=== PATIENT | male | born 1950 | race Caucasian/White ===

== ENCOUNTER 2016-07-12 15:22 | Emergency (ER) | payer OTHER ==
[2016-07-12 15:30] VITALS: BP 156/73; PULSE 69; RESP 18; TEMP 97.9
--- NOTE | 2016-07-12 15:46 | ED ---
General Adult HPI - General Chief complaint: ENT Stated complaint: left ear ache Time Seen by Provider: 07/12/16 15:34 Source: patient, RN notes reviewed Mode of arrival: wheelchair Limitations: no limitations - History of Present Illness Initial comments: This is a 66-year-old male who presents with left ear pain 1 week. Patient states about one week ago patient was cleaning out his ear with a Q-tip when he felt pain and had bleeding out of his left ear for the rest of that day. Patient states ever since he's had left ear pain but patient denies any hearing loss. Patient denies any drainage or bleeding from the ear now. Patient states he feels like something is moving in his eardrum. Patient states he is on anticoagulants. Patient denies any visual changes, headache, nausea/vomiting /diarrhea, cough, congestion or sore throat. Patient denies any recent fever, chills, shortness breath, chest pain, abdominal pain, nausea/vomiting/diarrhea, back pain, numbness, tingling, hematuria or any other complaints. - Related Data Home Medications Medication Instructions Recorded Confirmed Allopurinol [Zyloprim] 100 mg PO BID 12/02/14 09/30/15 Carvedilol [Coreg] 3.125 mg PO DAILY 12/02/14 09/30/15 Ergocalciferol [Vitamin D2 50,000 unit PO MOFR 12/02/14 09/30/15 (DRISDOL)] Finasteride [Proscar] 5 mg PO DAILY 12/02/14 09/30/15 Insulin Aspart [NovoLOG] 36 units SQ AC-TID 12/02/14 09/30/15 Insulin Glargine [Lantus] 80 unit SQ HS 12/02/14 09/30/15 Levothyroxine Sodium [Synthroid] 50 mcg PO DAILY 12/02/14 09/30/15 Loratadine [Claritin] 10 mg PO DAILY 12/02/14 09/30/15 Methadone [Dolophine] 5 mg PO BID@0800,1400 12/02/14 09/30/15 Methadone [Dolophine] 7.5 mg PO HS 12/02/14 09/30/15 Methocarbamol [Robaxin-750] 1,500 mg PO BID 12/02/14 09/30/15 Multivitamin [Men's Multi-Vitamin] 1 tab PO DAILY 12/02/14 09/30/15 [place]-3 Fatty Acids/Fish Oil [Fish 2 cap PO BID 12/02/14 09/30/15 Oil 1,000 mg Softgel] Pravastatin Sodium [Pravachol] 80 mg PO HS 12/02/14 09/30/15 Pregabalin [Lyrica] 100 mg PO TID 12/02/14 09/30/15 Ranitidine HCl 300 mg PO HS 12/02/14 09/30/15 Sertraline [Zoloft] 200 mg PO DAILY 12/02/14 09/30/15 Tamsulosin [Flomax] 0.8 mg PO HS 12/02/14 09/30/15 Ziprasidone [Geodon] 20 mg PO TID 12/02/14 09/30/15 carBAMazepine [TEGretol] 400 mg PO BID@0900,2100 12/02/14 09/30/15 clonazePAM [KlonoPIN] 0.5 mg PO TID 12/02/14 09/30/15 Baclofen [Lioresal] 10 mg PO BID 09/30/15 09/30/15 Baclofen [Lioresal] 20 mg PO HS 09/30/15 09/30/15 Cyanocobalamin [Vitamin B-12 1,000 mcg SQ QMONTH 09/30/15 09/30/15 Injection] Insulin Aspart [NovoLOG] 0 unit SQ PC-TID 09/30/15 09/30/15 carBAMazepine [TEGretol] 200 mg PO DAILY@1200 09/30/15 09/30/15 metFORMIN HCL 1,000 mg PO BID 09/30/15 09/30/15 Previous Rx's Medication Instructions Recorded Clopidogrel Bisulfate [Plavix] 75 mg PO DAILY #20 tab 10/01/15 Amoxicillin 1,000 mg PO Q8H 10 Days 07/12/16 Allergies Allergy/AdvReac Type Severity Reaction Status Date / Time etodolac [From Lodine] Allergy Unknown Verified 12/25/15 13:15 oxybutynin Allergy Unknown Verified 12/25/15 13:15 Review of Systems ROS Statement: Those systems with pertinent positive or pertinent negative responses have been documented in the HPI. ROS Other: All systems not noted in ROS Statement are negative. Past Medical History Past Medical History: Diabetes Mellitus, GERD/Reflux, Hypertension, Myocardial Infarction ([place]), Thyroid Disorder Additional Past Medical History / Comment(s): severe neuropathy, hx. gout, back problems, rarely uses CPAP, hx. colon polyps, constipation, had DVT/PE related to drug interaction, has balance problems & hx. falling due to feet completely numb, has hydrocele; Gout; BPH Last Myocardial Infarction Date:: 2010 History of Any Multi-Drug Resistant Organisms: None Reported Date of last positivie culture/infection: 2010 MDRO Source:: GI Past Surgical History: Hernia Repair Additional Past Surgical History / Comment(s): hiatal hernia repair x 2, umbilical hernia repair Past Anesthesia/Blood Transfusion Reactions: No Reported Reaction Past Psychological History: Bipolar, Depression, PTSD Additional Psychological History / Comment(s): severe PTSD Smoking Status: Never smoker Past Alcohol Use History: None Reported Past Drug Use History: None Reported - Past Family History Father Family Medical History: Cancer Mother Family Medical History: Cancer General Exam - General Exam Comments Initial Comments: General: The patient is awake and alert, in no distress, and does not appear acutely ill. Eye: Pupils are equal, round and reactive to light, extra-ocular movements are intact. No nystagmus. There is normal conjunctiva bilaterally. No signs of icterus. Ears: Left tympanic membrane is erythematous with dried blood present in the external ear canal. Left tympanic membrane with no sign of perforation. Right tympanic membrane and external ear canals are within normal limits. Nose: Nasal turbinates pink and moist Mouth and throat: There are moist mucous membranes and no oral lesions. Neck: The neck is supple, there is no tenderness or JVD. Cardiovascular: There is a regular rate and rhythm. No murmur, rub or gallop is appreciated. Respiratory: Lungs are clear to auscultation, respirations are non-labored, breath sounds are equal. No wheezes, stridor, rales, or rhonchi. Musculoskeletal: Normal ROM, no tenderness. Strength 5/5. Sensation intact. Radial pulses equal bilaterally 2+. Neurological: A&O x 3. CN II-XII intact, There are no obvious motor or sensory deficits. Coordination appears grossly intact. Speech is normal. Skin: Skin is warm and dry and no rashes or lesions are noted. Psychiatric: Cooperative, appropriate mood & affect, normal judgment. Limitations: no limitations Course Vital Signs 07/12/16 15:28 Temperature 97.9 F Pulse Rate 69 Respiratory 18 Rate Blood Pressure 156/73 O2 Sat by Pulse 96 Oximetry Medical Decision Making - Medical Decision Making This is a 66-year-old male who presents with left ear pain 1 week after patient used a Q-tip to clean his ear. On physical exam left tympanic membrane is erythematous with dried blood present in the external ear canal. Left tympanic membrane with no sign of perforation. Patient is on anticoagulants. I discussed the patient will be put on a course of amoxicillin for otitis media. I discussed Tylenol for pain as patient states he cannot take Motrin. I discussed the patient is to follow up with ENT. I discussed return parameters. Discussed that patient should follow up with PCP in one to 2 days or return to the [facility] for any worsening symptoms or for any further concerns. Patient and were receptive to this plan and patient will be discharged home. I discussed this case with attending physician Dr. Pruitt who agrees the plan as stated above. Disposition Clinical Impression: Otitis media, Trauma of ear canal Disposition: HOME SELF-CARE Condition: Good Instructions: Earache (ED) Additional Instructions: Please finish entire course of antibiotics. Please use Tylenol for pain. Please do not put anything in your ears. Please follow-up with ENT. Please follow-up with family doctor in the next 2 days of symptoms have not improved. Please return to emergency room if the symptoms increase or worsen or for any other concerns. Prescriptions: Amoxicillin 1,000 mg PO Q8H 10 Days Referrals: Arash Gutierrez DO [Primary Care Provider] - 1-2 days Josemanuel Ingram MD [STAFF PHYSICIAN] - 1-2 days Time of Disposition: 16:12
== END 2016-07-12 16:18 | disposition home or self-care (01) ==
LOC: EC 15:22
DX: H66.92 Otitis media, unspecified, left ear (principal); H93.8X2 Other specified disorders of left ear; E11.9 Type 2 diabetes mellitus without complications; K21.9 Gastro-esophageal reflux disease without esophagitis; I10 Essential (primary) hypertension; I25.2 Old myocardial infarction; E07.9 Disorder of thyroid, unspecified; F31.9 Bipolar disorder, unspecified; F43.10 Post-traumatic stress disorder, unspecified; N40.0 Benign prostatic hyperplasia without lower urinary tract symptoms; M10.9 Gout, unspecified; G62.9 Polyneuropathy, unspecified; Z88.8 Allergy status to other drugs, medicaments and biological substances; Z79.4 Long term (current) use of insulin; Z79.01 Long term (current) use of anticoagulants; Z79.84 Long term (current) use of oral hypoglycemic drugs; Z79.02 Long term (current) use of antithrombotics/antiplatelets; Z86.718 Personal history of other venous thrombosis and embolism; Z79.899 Other long term (current) drug therapy; X58.XXXA Exposure to other specified factors, initial encounter
CPT/HCPCS: 99282

== ENCOUNTER 2016-11-25 11:32 | Inpatient (IN) | payer MEDICARE, OTHER ==
[2016-11-25] MEDS ORDERED: SODIUM CHLORIDE 0.9% 1,000 ML IV STA (11:45)
--- NOTE | 2016-11-25 11:48 | ED ---
General Adult HPI - General Stated complaint: Weakness Time Seen by Provider: 11/25/16 11:38 Source: patient, EMS, RN notes reviewed Mode of arrival: EMS Limitations: no limitations - History of Present Illness Initial comments: Patient is a pleasant 66-year-old male presenting to the emergency department with concerns of numbness and weakness. Patient noticed symptoms when he woke this morning at 5:30. Symptoms have been persistent since that time, possibly somewhat better. Patient last known well was 10 PM last night when he went to bed. Patient does have a history of similar symptoms previously associated with TIA. Patient does have some residual left-sided weakness. Patient states this seems slightly worse than normal. Patient has chronic neuropathy. Patient has complaints of weakness of his left arm and left leg, somewhat worse than normal. Patient also feels his face is somewhat numb on the left side which is a new thing for him. - Related Data Home Medications Medication Instructions Recorded Confirmed Allopurinol [Zyloprim] 100 mg PO BID 12/02/14 11/25/16 Ergocalciferol [Vitamin D2 50,000 unit PO MOFR 12/02/14 11/25/16 (DRISDOL)] Finasteride [Proscar] 5 mg PO DAILY 12/02/14 11/25/16 Insulin Aspart [NovoLOG] 32 units SQ AC-TID 12/02/14 11/25/16 Levothyroxine Sodium [Synthroid] 50 mcg PO DAILY 12/02/14 11/25/16 Loratadine [Claritin] 10 mg PO DAILY 12/02/14 11/25/16 Methadone [Dolophine] 5 mg PO BID@0800,1400 12/02/14 11/25/16 Methadone [Dolophine] 7.5 mg PO HS 12/02/14 11/25/16 Multivitamin [Men's Multi-Vitamin] 1 tab PO DAILY 12/02/14 11/25/16 [place]-3 Fatty Acids/Fish Oil [Fish 2 cap PO BID 12/02/14 11/25/16 Oil 1,000 mg Softgel] Pravastatin Sodium [Pravachol] 40 mg PO HS 12/02/14 11/25/16 Pregabalin [Lyrica] 100 mg PO TID 12/02/14 11/25/16 Sertraline [Zoloft] 200 mg PO DAILY 12/02/14 11/25/16 Tamsulosin [Flomax] 0.8 mg PO HS 12/02/14 11/25/16 Ziprasidone [Geodon] 20 mg PO TID 12/02/14 11/25/16 carBAMazepine [TEGretol] 400 mg PO BID@0700,2100 12/02/14 11/25/16 clonazePAM [KlonoPIN] 0.5 mg PO TID 12/02/14 11/25/16 Baclofen [Lioresal] 10 mg PO BID@0700,1500 09/30/15 11/25/16 Baclofen [Lioresal] 20 mg PO HS 09/30/15 11/25/16 Cyanocobalamin [Vitamin B-12 1,000 mcg SQ QMONTH 09/30/15 11/25/16 Injection] Insulin Aspart [NovoLOG] See Protocol SQ PC-TID 09/30/15 11/25/16 carBAMazepine [TEGretol] 200 mg PO DAILY@1200 09/30/15 11/25/16 metFORMIN HCL 1,000 mg PO BID 09/30/15 11/25/16 Artificial Tears Ointment 1 applic BOTH EYES HS 11/25/16 11/25/16 [Lubrifresh Pm Ointment] Artificial Tears-Hypromellose 1 drops BOTH EYES TID PRN 11/25/16 11/25/16 [Artificial Tear Drops] Carvedilol [Coreg] 6.25 mg PO BID 11/25/16 11/25/16 Gemfibrozil [Lopid] 600 mg PO BID 11/25/16 11/25/16 HYDROcodone/APAP 10-325MG [[place] 1 tab PO Q6H PRN 11/25/16 11/25/16 10-325] Insulin Glargine,Hum.rec.anlog 90 unit SQ HS 11/25/16 11/25/16 [Lantus Solostar] Miconazole Nitrate [Lotrimin AF 1 applic TOPICAL BID PRN 11/25/16 11/25/16 Powder] Pantoprazole Sodium [Protonix] 40 mg PO BID 11/25/16 11/25/16 Ranitidine HCl [Zantac] 300 mg PO HS 11/25/16 11/25/16 Sennosides/Docusate Sodium 1 - 2 tab PO BID PRN 11/25/16 11/25/16 [Docusate Sodium-Senna Tablet] Previous Rx's Medication Instructions Recorded Clopidogrel Bisulfate [Plavix] 75 mg PO DAILY #20 tab 10/01/15 Allergies Allergy/AdvReac Type Severity Reaction Status Date / Time etodolac [From Lodine] Allergy Unknown Verified 11/25/16 11:46 oxybutynin Allergy Unknown Verified 11/25/16 11:46 Review of Systems ROS Statement: Those systems with pertinent positive or pertinent negative responses have been documented in the HPI. ROS Other: All systems not noted in ROS Statement are negative. Constitutional: Denies: fever Eyes: Denies: eye pain ENT: Denies: ear pain Respiratory: Denies: cough Cardiovascular: Denies: chest pain Endocrine: Denies: fatigue Gastrointestinal: Denies: abdominal pain Genitourinary: Denies: dysuria Musculoskeletal: Denies: back pain Skin: Denies: rash Neurological: Reports: weakness, paresthesias. Denies: headache, confusion Past Medical History Past Medical History: CVA/TIA, Diabetes Mellitus, GERD/Reflux, Hypertension, Myocardial Infarction ([place]), Thyroid Disorder Additional Past Medical History / Comment(s): severe neuropathy, hx. gout, back problems, rarely uses CPAP, hx. colon polyps, constipation, had DVT/PE related to drug interaction, has balance problems & hx. falling due to feet completely numb, has hydrocele; Gout; BPH Last Myocardial Infarction Date:: 2010 History of Any Multi-Drug Resistant Organisms: None Reported Date of last positivie culture/infection: 2010 MDRO Source:: GI Past Surgical History: Hernia Repair Additional Past Surgical History / Comment(s): hiatal hernia repair x 2, umbilical hernia repair Past Anesthesia/Blood Transfusion Reactions: No Reported Reaction Past Psychological History: Bipolar, Depression, PTSD Smoking Status: Never smoker Past Alcohol Use History: None Reported Past Drug Use History: None Reported - Past Family History Father Family Medical History: Cancer Mother Family Medical History: Cancer General Exam Limitations: no limitations General appearance: alert, in no apparent distress Head exam: Present: atraumatic Eye exam: Present: normal appearance, PERRL, EOMI. Absent: nystagmus ENT exam: Present: normal oropharynx Neck exam: Present: normal inspection Respiratory exam: Present: normal lung sounds bilaterally Cardiovascular Exam: Present: regular rate, normal rhythm GI/Abdominal exam: Present: soft. Absent: tenderness Extremities exam: Present: normal inspection Neurological exam: Present: alert, oriented X3, CN II-XII intact, motor sensory deficit Expanded Speech: Present: fluid speech Cranial nerves: Facial Sensation: Normal Cerebellar function: Finger to Nose: Normal Sensory exam: Upper Extremity Light Touch: Abnormal Left, Abnormal Right ( Patient states chronic), Lower Extremity Light Touch: Abnormal Left Motor strength exam: RUE: 5, LUE: 4, RLE: 5, LLE: 4 Eye Response: (4) open spontaneously Motor Response: (6) obeys commands Verbal Response: (5) oriented Psychiatric exam: Present: normal affect, normal mood Skin exam: Present: normal color Course Vital Signs 11/25/16 11/25/16 11/25/16 11:34 13:28 14:30 Temperature 97.5 F L 99.2 F Pulse Rate 56 L 52 L 54 L Respiratory 18 16 18 Rate Blood Pressure 141/65 146/72 151/68 O2 Sat by Pulse 94 L 97 97 Oximetry EKG Findings - EKG Comments: EKG Findings:: Sinus bradycardia 54. For screening AV block with a OK of 214. QRS 104. QT 438. QTC 415. Left axis. Incomplete right bundle-branch block. No acute ST change. Medical Decision Making - Medical Decision Making Patient reevaluated and resting comfortably in bed. Patient and family updated on results and plan. State patient states he feels unchanged. Patient does have symptoms of probable mild stroke. Case was discussed in detail with Dr. Tenorio, who will admit for Dr. Tee. patient does not meet TPA criteria secondary to onset greater than 12 hours. - Lab Data Result diagrams: 11/25/16 11:50 11/25/16 11:50 Lab Results 11/25/16 11/25/16 11/25/16 Range/Units 11:50 11:50 11:50 WBC 5.8 (3.8-10.6) k/uL RBC 4.35 (4.30-5.90) m/uL Hgb 12.9 L (13.0-17.5) gm/dL Hct 38.4 L (39.0-53.0) % MCV 88.3 (80.0-100.0) fL MCH 29.8 (25.0-35.0) pg MCHC 33.7 (31.0-37.0) g/dL RDW 15.3 (11.5-15.5) % Plt Count 121 L (150-450) k/uL Neutrophils % 72 % Lymphocytes % 20 % Monocytes % 5 % Eosinophils % 1 % Basophils % 0 % Neutrophils # 4.2 (1.3-7.7) k/uL Lymphocytes # 1.2 (1.0-4.8) k/uL Monocytes # 0.3 (0-1.0) k/uL Eosinophils # 0.1 (0-0.7) k/uL Basophils # 0.0 (0-0.2) k/uL PT (9.0-12.0) sec INR (<1.2) APTT (22.0-30.0) sec Sodium 143 (137-145) mmol/L Potassium 5.1 (3.5-5.1) mmol/L Chloride 103 (98-107) mmol/L Carbon Dioxide 25 (22-30) mmol/L Anion Gap 15 mmol/L BUN 24 H (9-20) mg/dL Creatinine 1.08 (0.66-1.25) mg/dL Est GFR (MDRD) Af Amer >60 (>60 ml/min/1.73 sqM) Est GFR (MDRD) Non-Af >60 (>60 ml/min/1.73 sqM) Glucose 212 H (74-99) mg/dL POC Glucose (mg/dL) (75-99) mg/dL POC Glu Butadiene Convertor Operator ID Calcium 9.5 (8.4-10.2) mg/dL Total Bilirubin 0.5 (0.2-1.3) mg/dL AST 55 (17-59) U/L ALT 50 (21-72) U/L Alkaline Phosphatase 68 (38-126) U/L Total Creatine Kinase 200 H (55-170) U/L CK-MB (CK-2) 4.8 H* (0.0-2.4) ng/mL CK-MB (CK-2) Rel Index 2.4 Troponin I <0.012 (0.000-0.034) ng/mL Total Protein 7.5 (6.3-8.2) g/dL Albumin 4.5 (3.5-5.0) g/dL 11/25/16 11/25/16 11/25/16 Range/Units 11:50 12:25 14:21 WBC (3.8-10.6) k/uL RBC (4.30-5.90) m/uL Hgb (13.0-17.5) gm/dL Hct (39.0-53.0) % MCV (80.0-100.0) fL MCH (25.0-35.0) pg MCHC (31.0-37.0) g/dL RDW (11.5-15.5) % Plt Count (150-450) k/uL Neutrophils % % Lymphocytes % % Monocytes % % Eosinophils % % Basophils % % Neutrophils # (1.3-7.7) k/uL Lymphocytes # (1.0-4.8) k/uL Monocytes # (0-1.0) k/uL Eosinophils # (0-0.7) k/uL Basophils # (0-0.2) k/uL PT 10.9 (9.0-12.0) sec INR 1.1 (<1.2) APTT 25.5 (22.0-30.0) sec Sodium (137-145) mmol/L Potassium (3.5-5.1) mmol/L Chloride (98-107) mmol/L Carbon Dioxide (22-30) mmol/L Anion Gap mmol/L BUN (9-20) mg/dL Creatinine (0.66-1.25) mg/dL Est GFR (MDRD) Af Amer (>60 ml/min/1.73 sqM) Est GFR (MDRD) Non-Af (>60 ml/min/1.73 sqM) Glucose (74-99) mg/dL POC Glucose (mg/dL) 204 H 172 H (75-99) mg/dL POC Glu Butadiene Convertor Operator Edgar Garcia Daniel Calcium (8.4-10.2) mg/dL Total Bilirubin (0.2-1.3) mg/dL AST (17-59) U/L ALT (21-72) U/L Alkaline Phosphatase (38-126) U/L Total Creatine Kinase (55-170) U/L CK-MB (CK-2) (0.0-2.4) ng/mL CK-MB (CK-2) Rel Index Troponin I (0.000-0.034) ng/mL Total Protein (6.3-8.2) g/dL Albumin (3.5-5.0) g/dL - Radiology Data Radiology results: report reviewed (Computed tomography scan of the brain shows no acute process. Atrophy and mild white matter changes.), image reviewed (Two- view chest x-ray shows no acute process.) Disposition Clinical Impression: CVA (cerebral vascular accident) Disposition: ADMITTED IP TO THIS [facility] Referrals: Arash Gutierrez DO [Primary Care Provider] - 1-2 days Decision Time: 15:19
[2016-11-25 12:08] LABS: Basophils % (A) 0 %; CHCM 35.3; Eosinophils # (A) 0.1 k/uL (0-0.7); Eosinophils % (A) 1 %; HCT 38.4 % (39.0-53.0); HDW 2.87; HGB 12.9 gm/dL (13.0-17.5); Luc % (Auto) 2; Lymphocytes # (A) 1.2 k/uL (1.0-4.8); Lymphocytes % (A) 20 %; MCH 29.8 pg (25.0-35.0); MCHC 33.7 g/dL (31.0-37.0); MCV 88.3 fL (80.0-100.0); Monocytes # (A) 0.3 k/uL (0-1.0); Monocytes % (A) 5 %; Neutrophils # (A) 4.2 k/uL (1.3-7.7); Neutrophils % (A) 72 %; RBC 4.35 m/uL (4.30-5.90); RDW 15.3 % (11.5-15.5); WBC 5.8 k/uL (3.8-10.6); WBC (Perox) 5.71
[2016-11-25 12:19] LABS: ALT 50 U/L (21-72); AST 55 U/L (17-59); Alkaline Phosphatase 68 U/L (38-126); Anion Gap 15 mmol/L; Blood Urea Nitrogen 24 mg/dL (9-20); Calcium 9.5 mg/dL (8.4-10.2); Carbon Dioxide 25 mmol/L (22-30); Chloride 103 mmol/L (98-107); Glucose 212 mg/dL (74-99); Non-African American GFR(MDRD) >60 (>60 ml/min/1.73 sqM); Potassium 5.1 mmol/L (3.5-5.1); Sodium 143 mmol/L (137-145); Total Bilirubin 0.5 mg/dL (0.2-1.3); Total Protein 7.5 g/dL (6.3-8.2)
[2016-11-25 12:27] LABS: Glucose,Whole Blood 204 mg/dL (75-99)
[2016-11-25 12:28] LABS: Creatine Kinase 200 U/L (55-170)
[2016-11-25 12:29] LABS: INR 1.1 (<1.2); Partial Thromboplastin Time 25.5 sec (22.0-30.0); Prothrombin Time 10.9 sec (9.0-12.0)
--- NOTE | 2016-11-25 12:38 | CT ---
EXAMINATION TYPE: CT brain wo con DATE OF EXAM: 11/25/2016 COMPARISON: 09/29/2015 HISTORY: Patient complains of left side weakness and numbness. CT DLP: 1121 mGycm. Automated Exposure Control for Dose Reduction was Utilized. TECHNIQUE: CT scan of the head is performed without contrast. FINDINGS: There is no acute intracranial hemorrhage, mass effect, or midline shift identified. Ther e is proportional sulcal and ventricular prominence consistent with age-related atrophy. Minimal low attenuation within the periventricular white matter is similar to the prior exam and again consisten t with microangiopathy. The globes are intact and the visualized sinuses are clear other than minimal ethmoidal mucosal thickening. IMPRESSION: 1. No acute intracranial hemorrhage, mass effect, or midline shift is seen. 2. Unchanged age-related atrophy and mild white matter changes, most likely sequela of microangiopath y.
[2016-11-25 12:41] LABS: Troponin I <0.012 ng/mL (0.000-0.034)
--- NOTE | 2016-11-25 12:53 | XR ---
EXAMINATION TYPE: XR chest 2V DATE OF EXAM: 11/25/2016 COMPARISON: Prior chest x-ray 09/29/2015 HISTORY: Altered mental status, weakness TECHNIQUE: Frontal and lateral views of the chest are obtained. FINDINGS: There is no focal air space opacity, pleural effusion, or pneumothorax seen. The cardiac silhouette size is stable accounting for differences in technique. There are overlying cardiac lead s. Patient is rotated and lung volumes are low.. The osseous structures are intact. IMPRESSION: Heart size may be accentuated by rotation. Expiratory rotated exam, follow-up as indicat ed.
[2016-11-25 12:58] LABS: Creatine Kinase MB 4.8 ng/mL (0.0-2.4)
[2016-11-25 14:26] LABS: Glucose,Whole Blood 172 mg/dL (75-99)
[2016-11-25] MEDS ORDERED: ASPIRIN 325 MG TAB PO STA (15:19)
[2016-11-25] MEDS ORDERED: METHADONE 5 MG TAB PO ONE (15:30)
--- NOTE | 2016-11-25 16:48 | ECHOF ---
Referral Reason:Thrombus MEASUREMENTS -------- HEIGHT: 152.4 cm WEIGHT: 122.9 kg BP: 135/63 RVIDd: 3.8 cm (< 3.3) IVSd: 1.4 cm (0.6 - 1.1) LVIDd: 4.7 cm (3.9 - 5.3) LVPWd: 1.3 cm (0.6 - 1.1) IVSs: 1.8 cm LVIDs: 4.2 cm LVPWs: 1.4 cm LA Diam: 3.9 cm (2.7 - 3.8) Ao Diam: 3.4 cm (2.0 - 3.7) AV Cusp: 1.4 cm (1.5 - 2.6) LA Diam: 4.5 cm (2.7 - 3.8) MV EXCURSION: 13.275 mm (> 18.000) MV EF SLOPE: 69 mm/s (70 - 150) EPSS: 0.5 cm MV E Patricio: 0.68 m/s MV DecT: 323 ms MV A Patricio: 0.84 m/s MV E/A Ratio: 0.81 AV maxP.02 mmHg AV meanP.17 mmHg RAP: 5.00 mmHg RVSP: 15.28 mmHg FINDINGS -------- Sinus rhythm. Morbid Obesity This was a techncally difficult study with suboptimal views, , Definity utilized for enhancement of images. There is moderate concentric left ventricular hypertrophy. Overall left ventricular systolic function is low-normal with, an EF between 50 - 55 %. The right ventricle is normal in size. The left atrium is mildly dilated. The right atrial size is normal. 1.5MG OF DEFINITY UTLIZED: 2 OR MORE WALL SEGMENTS NOT VISUALIZED. There is mild aortic stenosis present. Peak/mean gradient across the Aortic Valve is 22.02mmHg / 13.17mmHg. Mild mitral annular calcification present. Mild mitral regurgitation is present. Mild tricuspid regurgitation present. There is no evidence of pulmonary hypertension. The right ventricular systolic pressure, as measured by Doppler, is 15.28mmHg. There is no pulmonic regurgitation present. The aortic root size is normal. Echo free space may represent effusion or a pericardial fat pad. CONCLUSIONS -------- 1. Morbid Obesity 2. Mild tricuspid regurgitation present. 3. There is no evidence of pulmonary hypertension. 4. The right ventricular systolic pressure, as measured by Doppler, is 15.28mmHg. 5. There is no pulmonic regurgitation present. 6. Echo free space may represent effusion or a pericardial fat pad. 7. This was a techncally difficult study with suboptimal views, , Definity utilized for enhancement of images. 8. There is moderate concentric left ventricular hypertrophy. 9. Overall left ventricular systolic function is low-normal with, an EF between 50 - 55 %. 10. The left atrium is mildly dilated. 11. 1.5MG OF DEFINITY UTLIZED: 2 OR MORE WALL SEGMENTS NOT VISUALIZED. 12. There is mild aortic stenosis present. 13. Mild mitral annular calcification present. 14. Mild mitral regurgitation is present. PUFF IRONER: Josselyn Sahni RDCS
[2016-11-25] MEDS: SODIUM CHLORIDE 0.9% 1,000 ML IV SCH (16:53)
[2016-11-25 16:55] LABS: Glucose,Whole Blood 217 mg/dL (75-99)
[2016-11-25] MEDS: ZIPRASIDONE 20 MG CAP PO SCH ×2 (17:47→21:24)
[2016-11-25] MEDS: CARVEDILOL 6.25 MG TAB PO SCH (17:47)
[2016-11-25] MEDS: PREGABALIN 100 MG CAP PO SCH ×2 (17:47→21:31)
[2016-11-25] MEDS: PANTOPRAZOLE 40 MG TABLET PO SCH (17:47)
[2016-11-25] MEDS: INSULIN LISPRO (humaLOG) 300 UNIT/3 ML VIAL SQ SCH (17:54)
[2016-11-25 21:01] LABS: Glucose,Whole Blood 142 mg/dL (75-99)
[2016-11-25] MEDS: TAMSULOSIN 0.4 MG CAP.ER.24H PO SCH (21:22)
[2016-11-25] MEDS: PRAVASTATIN SODIUM 40 MG TAB PO SCH (21:23)
[2016-11-25] MEDS: FAMOTIDINE 20 MG TAB PO SCH (21:23)
[2016-11-25] MEDS: metFORMIN 500 MG TAB PO SCH (21:23)
[2016-11-25] MEDS: carBAMazepine 200 MG TAB PO SCH (21:24)
[2016-11-25] MEDS: METHADONE 5 MG TAB PO SCH (21:31)
--- NOTE | 2016-11-25 21:50 | US ---
EXAMINATION TYPE: US carotid duplex BILAT DATE OF EXAM: 11/25/2016 COMPARISON: NONE CLINICAL HISTORY: Stenosis. Weakness left side EXAM MEASUREMENTS: RIGHT: Peak Systolic Velocity (PSV) cm/sec ----- Right CCA: 78.1 ----- Right ICA: 137.1 ----- Right ECA: 99.5 ICA/CCA ratio: 1.8 RIGHT: End Diastole cm/sec ----- Right CCA: 15.5 ----- Right ICA: 32.1 ----- Right ECA: 6.3 LEFT: Peak Systolic Velocity (PSV) cm/sec ----- Left CCA: 77.5 ----- Left ICA: 95.6 ----- Left ECA: 108.6 ICA/CCA ratio: 1.2 LEFT: End Diastole cm/sec ----- Left CCA: 16.7 ----- Left ICA: 21.9 ----- Left ECA: 8.9 VERTEBRALS (direction of flow): Right Vertebral: Antegrade Left Vertebral: Antegrade Mild plaque bilateral bifurcations. Tortuous distal right ICA. No evidence of significant stenosis. IMPRESSION: No evidence of hemodynamically significant stenosis within either carotid system. Mild g ray scale plaquing at the bilateral carotid bulbs.
[2016-11-26 06:05] LABS: Glucose,Whole Blood 179 mg/dL (75-99)
[2016-11-26] MEDS: CARVEDILOL 6.25 MG TAB PO SCH ×2 (06:47→17:27)
[2016-11-26] MEDS: carBAMazepine 200 MG TAB PO SCH ×3 (06:47→21:55)
[2016-11-26] MEDS: SODIUM CHLORIDE 0.9% 1,000 ML IV SCH ×3 (06:48→21:21)
[2016-11-26 06:56] LABS: Carbamazepine (Tegretol) 8.6 ug/mL
[2016-11-26] MEDS: INSULIN LISPRO (humaLOG) 300 UNIT/3 ML VIAL SQ SCH ×3 (07:07→17:27)
[2016-11-26] MEDS: PANTOPRAZOLE 40 MG TABLET PO SCH ×2 (07:07→17:28)
[2016-11-26] MEDS: PREGABALIN 100 MG CAP PO SCH ×3 (08:06→21:21)
[2016-11-26] MEDS: metFORMIN 500 MG TAB PO SCH ×2 (08:06→20:13)
[2016-11-26] MEDS: ASPIRIN 325 MG TAB PO SCH (08:07)
[2016-11-26] MEDS: CLOPIDOGREL 75 MG TAB PO SCH (08:07)
[2016-11-26] MEDS: SERTRALINE 100 MG TAB PO SCH (08:07)
[2016-11-26] MEDS: ZIPRASIDONE 20 MG CAP PO SCH ×3 (08:07→21:21)
--- NOTE | 2016-11-26 10:36 | CONS ---
DATE OF CONSULTATION: 11/25/16 CHIEF COMPLAINT: Stroke. HISTORY OF PRESENT ILLNESS: Mr. Díaz is a pleasant 66-year-old male who is being evaluated today on 11/25/16 by the neurology service per the request of Dr. Tenorio for a stroke. The patient was brought into [facility] Emergency room with a complaint of left sided weakness. He states that the symptoms started yesterday and when the symptoms did not improve, he decided to come into the emergency room. He states that he has a history of a stroke which left him with mild left sided weakness but he noticed that the weakness was slightly worse. He is already on Plavix and aspirin at home. A CT scan of the brain was done which showed no acute findings. There was generalized atrophy and small vessel ischemic changes. A 2D echocardiogram was done which showed no significant abnormalities. His CBC showed mild thrombocytopenia at 121,000 and his INR was normal at 1.1. His comprehensive metabolic profile showed mildly elevated BUN at 24 and elevated glucose at 212. His cardiac enzymes were normal except for slightly elevated CPK at 200. The patient does have history of diabetes which significant peripheral polyneuropathy. He has severe chronic pain syndrome secondary to the neuropathy which is mostly in his lower extremities. He also complains of chronic low back pain. The patient is on Methadone for his chronic pain and also takes hydrocodone as needed for breakthrough pain. At the time of my evaluation, the patient is lying in his bed and appears to be in no acute distress. He reports improvement in his worsening left sided weakness since his admission. PAST MEDICAL HISTORY: Stroke, chronic pain syndrome, diabetes, peripheral polyneuropathy, gastroesophageal reflux disease, hypertension, history of myocardial infarction, hypothyroidism, chronic lumbago, gout. Obstructive sleep apnea, history of deep venous thrombosis, benign prostatic hypertrophy, bipolar disorder, depression, posttraumatic stress disorder, history of hernia repair. SOCIAL HISTORY: The patient denies any tobacco, alcohol or drug use. FAMILY HISTORY: Positive for cancer. HOME MEDICATIONS: Reviewed in the chart. ALLERGIES: LODINE AND OXYBUTYNIN. REVIEW OF SYSTEMS: CONSTITUTIONAL: Negative. EYES: Negative. ENT: Negative. CARDIOVASCULAR: Negative. Respiratory: Negative. Neurological: As mentioned earlier. Gastrointestinal: Negative. : Negative. PSYCH: Negative. Dermatological: Negative. Endocrine: Negative. Musculoskeletal: Negative. PHYSICAL EXAMINATION: Vital signs show a temperature of 97.1, pulse 65. Respiratory rate 18. Blood pressure 141/75. General appearance: The patient is a moderately obese male who appears to be in no acute distress. HEENT: Normocephalic, atraumatic. No facial asymmetry is seen. Extraocular muscles are intact. Neck is supple with no masses felt. Cardiovascular: Bradycardic rate and normal rhythm. Abdomen: Mildly distended but nontender to palpation. EXTREMITIES: Show trace edema with no clubbing. Multiple superficial abrasions are seen in both legs. NEUROLOGICAL: The patient is alert , aware and oriented times three. Speech and language are normal. No pronator drift is seen. Strength appears to be full in all four extremities except for 5-/5 interpretive program coordinator strength on the left side. Sensory exam shows slightly diminished light touch sensation on bilateral distal lower extremities with slightly more sensory deficit in the left lower extremity compared to the right. Cranial nerve testing showed slightly diminished light touch sensation on the left face compared to the right. No facial weakness is seen. No tremors or seizure like activity is seen. IMPRESSION: 1. Acute ischemic stroke. 2. Left sided weakness. 3. Polypharmacy. 4. Chronic pain syndrome. 5. Peripheral polyneuropathy. 6. Diabetes. 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 He does report a previous history of stroke with mildly residual left sided weakness. The patient is already on Plavix and aspirin at home and we will continue with current antiplatelet regimen. Continue monitoring his platelet count as he does have mild thrombocytopenia. I will order a carotid Doppler, fasting lipid panel, EEG and serum homocysteine level. Physical therapy and occupational therapy will be consulted. A carotid Doppler has been ordered. As for his home medications, I had a lengthy discussion with the patient and his regarding his polypharmacy, it is unclear why he is on Tegretol as his states that he was started on this because of occasional muscle twitching in his right upper extremity. This was mostly described as myoclonus. He has been on Tegretol for several years but both the patient and his state that he continues to have occasional jerking of his right upper extremity. I will order a serum Tegretol level. I discussed with him the option of weaning off of Tegretol which will be done in the outpatient setting. He has never had any seizure like activity. I also discussed with them his Methadone and opiate use. I discussed various treatment options including intrathecal therapy. This will be discussed further in the outpatient setting. Continue the rest of your current workup and management. I will continue to follow with you. Further recommendations to follow. Thank you for allowing me to participate in the care of your patient. If you have any questions, please feel free to contact me. ADDIE
[2016-11-26 12:49] LABS: Glucose,Whole Blood 174 mg/dL (75-99)
[2016-11-26] MEDS: FENOFIBRATE 160 MG TAB PO SCH (13:57)
--- NOTE | 2016-11-26 14:02 | P.HPIM ---
History of Present Illness H&P Date: 11/25/16 This is a 66-year-old gentleman with multiple medical problems including history of myoclonic seizures, history of CP arrest, chronic pain syndrome, peripheral neuropathy, diabetes mellitus, essential hypertension, chronic pain syndrome comes into the hospital as patient was noted to have a vague episode of left-sided tingling that lasted for a few hours. Patient was admitted with the diagnosis of acute CVA. At the time of my evaluation patient states that his only symptoms are some left -sided pain likely description sharp lasted for a few minutes. No alleviating or exacerbating factors were reported Patient has had any headaches any focal weakness numbness chest pain blurry vision dizziness. Patient at baseline is not able to get out of a chair is bedridden and needs to be helped by 2 people to get out of bed [facility] the time of admission patient states that his symptoms are resolved Review of Systems All systems: negative (Noted in HPI) Past Medical History Past Medical History: CVA/TIA, Diabetes Mellitus, GERD/Reflux, Hypertension, Myocardial Infarction (DC), Prostate Disorder, Sleep Apnea/CPAP/BIPAP, Thyroid Disorder Additional Past Medical History / Comment(s): severe neuropathy, hx. gout, back problems, rarely uses CPAP, hx. colon polyps, constipation, had DVT/PE related to drug interaction, has balance problems & hx. falling due to feet completely numb, has hydrocele; Gout; BPH, TIA.past c-diff 2010, Last Myocardial Infarction Date:: 2010 History of Any Multi-Drug Resistant Organisms: None Reported Date of last positivie culture/infection: 2010 MDRO Source:: GI Past Surgical History: Hernia Repair Additional Past Surgical History / Comment(s): hiatal hernia repair x 2, umbilical hernia repair Past Anesthesia/Blood Transfusion Reactions: No Reported Reaction Smoking Status: Never smoker - Past Family History Father Family Medical History: Cancer Mother Family Medical History: Cancer Medications and Allergies Home Medications Medication Instructions Recorded Confirmed Type Allopurinol [Zyloprim] 100 mg PO BID 12/02/14 11/25/16 History Ergocalciferol [Vitamin D2 50,000 unit PO Q7D 12/02/14 11/25/16 History (DRISDOL)] Finasteride [Proscar] 5 mg PO DAILY 12/02/14 11/25/16 History Insulin Aspart [NovoLOG] 32 units SQ AC-TID 12/02/14 11/25/16 History Levothyroxine Sodium [Synthroid] 50 mcg PO DAILY 12/02/14 11/25/16 History Loratadine [Claritin] 10 mg PO DAILY 12/02/14 11/25/16 History Methadone [Dolophine] 5 mg PO BID@0800,1400 12/02/14 11/25/16 History Methadone [Dolophine] 7.5 mg PO HS 12/02/14 11/25/16 History Multivitamin [Men's Multi-Vitamin] 1 tab PO DAILY 12/02/14 11/25/16 History [place]-3 Fatty Acids/Fish Oil [Fish 2 cap PO BID 12/02/14 11/25/16 History Oil 1,000 mg Softgel] Pravastatin Sodium [Pravachol] 40 mg PO HS 12/02/14 11/25/16 History Pregabalin [Lyrica] 100 mg PO TID 12/02/14 11/25/16 History Sertraline [Zoloft] 200 mg PO DAILY 12/02/14 11/25/16 History Tamsulosin [Flomax] 0.8 mg PO HS 12/02/14 11/25/16 History Ziprasidone [Geodon] 20 mg PO TID 12/02/14 11/25/16 History carBAMazepine [TEGretol] 400 mg PO BID@0700,2100 12/02/14 11/25/16 History clonazePAM [KlonoPIN] 0.5 mg PO TID 12/02/14 11/25/16 History Baclofen [Lioresal] 10 mg PO BID@0700,1500 09/30/15 11/25/16 History Baclofen [Lioresal] 20 mg PO HS 09/30/15 11/25/16 History Cyanocobalamin [Vitamin B-12 1,000 mcg SQ QMONTH 09/30/15 11/25/16 History Injection] Insulin Aspart [NovoLOG] See Protocol SQ PC-TID 09/30/15 11/25/16 History carBAMazepine [TEGretol] 200 mg PO DAILY@1200 09/30/15 11/25/16 History metFORMIN HCL 1,000 mg PO BID 09/30/15 11/25/16 History Artificial Tears Ointment 1 applic BOTH EYES HS 11/25/16 11/25/16 History [Lubrifresh Pm Ointment] Artificial Tears-Hypromellose 1 drops BOTH EYES TID PRN 11/25/16 11/25/16 History [Artificial Tear Drops] Carvedilol [Coreg] 6.25 mg PO BID 11/25/16 11/25/16 History Gemfibrozil [Lopid] 600 mg PO BID 11/25/16 11/25/16 History HYDROcodone/APAP 10-325MG [[place] 1 tab PO Q6H PRN 11/25/16 11/25/16 History 10-325] Insulin Glargine,Hum.rec.anlog 90 unit SQ HS 11/25/16 11/25/16 History [Lantus Solostar] Miconazole Nitrate [Lotrimin AF 1 applic TOPICAL BID PRN 11/25/16 11/25/16 History Powder] Pantoprazole Sodium [Protonix] 40 mg PO BID 11/25/16 11/25/16 History Ranitidine HCl [Zantac] 300 mg PO HS 11/25/16 11/25/16 History Sennosides/Docusate Sodium 2 tab PO BID PRN 11/25/16 11/25/16 History [Docusate Sodium-Senna Tablet] Allergies Allergy/AdvReac Type Severity Reaction Status Date / Time etodolac [From [facility]] Allergy Unknown Verified 11/25/16 11:46 oxybutynin Allergy Unknown Verified 11/25/16 11:46 Physical Exam Vitals: Vital Signs Temp Pulse Pulse Pulse Resp BP BP 11/25/16 16:40 97.1 F L 55 L 55 L 18 141/75 11/25/16 16:10 98.4 F 58 L 18 159/82 11/25/16 15:22 98.6 F 66 16 146/66 11/25/16 14:30 54 L 18 151/68 11/25/16 13:28 99.2 F 52 L 16 146/72 11/25/16 11:34 97.5 F L 56 L 18 141/65 Pulse Ox 11/25/16 16:40 97 11/25/16 16:10 98 11/25/16 15:22 97 11/25/16 14:30 97 11/25/16 13:28 97 11/25/16 11:34 94 L Intake and Output 11/25/16 11/25/16 11/25/16 06:59 14:59 22:59 Intake Total 240 Balance 240 Intake: Oral 240 Other: Voiding Method Urinal Diaper Weight 123.377 kg 120 kg Patient Weight 11/26/16 06:59 Weight 120 kg Physical exam Gen. appearance oriented 3 in no distress Neck is supple no JVD Lungs good air entry clear to auscultation no rhonchi or wheezing Heart S1-S2 heard regular rate and rhythm no murmurs appreciated Abdomen is soft nontender no organomegaly bowel sounds are intact Neurologically cranial nerves II-12 grossly intact Strength in the upper extremities is 5 out of 5 lower extremities his distal is 5 out of 5 proximally about 3-4 out of 5 Skin no abnormalities appreciated Results CBC & Chem 7: 11/25/16 11:50 11/25/16 11:50 Labs: Abnormal Lab Results - Last 24 Hours (Table) 11/25/16 11/25/16 11/25/16 Range/Units 11:50 11:50 11:50 Hgb 12.9 L (13.0-17.5) gm/dL Hct 38.4 L (39.0-53.0) % Plt Count 121 L (150-450) k/uL BUN 24 H (9-20) mg/dL Glucose 212 H (74-99) mg/dL POC Glucose (mg/dL) (75-99) mg/dL Total Creatine Kinase 200 H (55-170) U/L CK-MB (CK-2) 4.8 H* (0.0-2.4) ng/mL 11/25/16 11/25/16 11/25/16 Range/Units 12:25 14:21 16:51 Hgb (13.0-17.5) gm/dL Hct (39.0-53.0) % Plt Count (150-450) k/uL BUN (9-20) mg/dL Glucose (74-99) mg/dL POC Glucose (mg/dL) 204 H 172 H 217 H (75-99) mg/dL Total Creatine Kinase (55-170) U/L CK-MB (CK-2) (0.0-2.4) ng/mL Assessment and Plan Plan: a/p Acute suspected CVA with vague left sided sensory loss DM2 Peripheral neuropathy HTN History of myoclonus Obesity Obstructive sleep apnea History of cardiopulmonary arrest Plan neurochecks pt at baseline is bedridden pt/ot echocardiogram carotid Doppler were reviewed EEGs ordered neurology's recommendation to titrate of Tegretol and pain medications on an outpatient basis may need a placement after workup Social work PTOT
--- NOTE | 2016-11-26 14:03 | P.PN ---
Subjective This is a 66-year-old gentleman with multiple medical problems including history of myoclonic seizures, history of CP arrest, chronic pain syndrome, peripheral neuropathy, diabetes mellitus, essential hypertension, chronic pain syndrome comes into the hospital as patient was noted to have a vague episode of left-sided tingling that lasted for a few hours. Patient was admitted with the diagnosis of acute CVA. At the time of my evaluation patient states that his only symptoms are some left -sided pain likely description sharp lasted for a few minutes. No alleviating or exacerbating factors were reported Patient has had any headaches any focal weakness numbness chest pain blurry vision dizziness. Patient at baseline is not able to get out of a chair is bedridden and needs to be helped by 2 people to get out of bed [facility] the time of admission patient states that his symptoms are resolved 11/26/2016 Patient is seen today after his EEG Denies having any new additional complaints Physical exam Neck is supple no JVD Lungs good air entry clear to auscultation no rhonchi or wheezing Heart S1-S2 heard regular rate and rhythm no murmurs appreciated Abdomen is soft nontender no organomegaly bowel sounds are intact Neurologically cranial nerves II-12 grossly intact Strength in the upper extremities is 5 out of 5 lower extremities his distal is 5 out of 5 proximally about 3-4 out of 5 Skin no abnormalities appreciated Objective - Vital Signs Vital signs: Vital Signs Temp 98.3 F 11/26/16 12:00 Pulse 55 L 11/26/16 12:00 Resp 18 11/26/16 12:00 BP 143/63 11/26/16 12:00 Pulse Ox 97 11/26/16 12:00 Intake & Output 11/25/16 11/26/16 11/26/16 18:59 06:59 18:59 Intake Total 240 800 870 Balance 240 800 870 Weight 120 kg 120 kg Intake: IV 800 150 Sodium Chloride 0.9% 1, 800 150 000 ml @ 100 mls/hr IV . Q10H [facility] Rx#:[id number] Oral 240 720 Other: Voiding Method Urinal Urinal Urinal Diaper Diaper Diaper # Voids 1 2 - Labs CBC & Chem 7: 11/25/16 11:50 11/25/16 11:50 Labs: Abnormal Lab Results - Last 24 Hours (Table) 0811/25/16 11/25/16 Range/Units 14:21 16:51 21:00 POC Glucose (mg/dL) 172 H 217 H 142 H (75-99) mg/dL Triglycerides (<150) mg/dL HDL Cholesterol (40-60) mg/dL 11/26/16 11/26/16 11/26/16 Range/Units 05:47 06:03 12:37 POC Glucose (mg/dL) 179 H 174 H (75-99) mg/dL Triglycerides 866 H (<150) mg/dL HDL Cholesterol 27 L (40-60) mg/dL Assessment and Plan Plan: a/p Acute suspected CVA with vague left sided sensory loss DM2 Peripheral neuropathy HTN History of myoclonus Obesity Obstructive sleep apnea History of cardiopulmonary arrest Plan pt at baseline is bedridden pt/ot echocardiogram carotid Doppler were reviewed EEGs ordered neurology's recommendation to titrate of Tegretol and pain medications on an outpatient basis may need a placement after workup Social work PTOT
--- NOTE | 2016-11-26 15:38 | P.PN ---
Subjective Principal diagnosis: Patient is a pleasant 63-year-old male who is being followed by the neurology service for stroke. Patient came to [facility] emergency room with complaints of left-sided weakness. Patient does have history of stroke with residual left-sided weakness. Patient states his left-sided weakness was worse prompting him to come to the emergency room. Patient is on aspirin and Plavix at home. Computed tomography scan of the brain showed no acute findings. Patient does have history of diabetes with significant peripheral neuropathy. Patient also has chronic pain syndrome for which she is on methadone and hydrocodone. At the time of my evaluation, patient is resting comfortably in bed and appears to be in no acute distress. Patient reports improvement in his left-sided weakness since admission. Objective - Vital Signs Vital signs: Vital Signs Temp 97.8 F 11/26/16 15:24 Pulse 66 11/26/16 15:24 Resp 18 11/26/16 15:24 BP 132/76 11/26/16 15:24 Pulse Ox 96 11/26/16 15:24 Intake & Output 11/25/16 11/26/16 11/26/16 18:59 06:59 18:59 Intake Total 124 058 2189 Balance 143 162 8504 Weight 120 kg 120 kg Intake: IV 800 650 Sodium Chloride 0.9% 1, 800 650 000 ml @ 100 mls/hr IV . Q10H [facility] Rx#:[id number] Oral 240 1070 Other: Voiding Method Urinal Urinal Urinal Diaper Diaper Diaper # Voids 1 2 - Exam PHYSICAL EXAM: GENERAL APPEARANCE: Patient is a well-developed, male who appears to be in no acute distress. HEENT: Normocephalic, atraumatic, no facial asymmetry is seen. Neck is supple with no masses felt. CARDIOVASCULAR: Regular rate and rhythm. ABDOMEN: Nontender, nondistended. EXTREMITIES: Show no edema or clubbing. NEUROLOGICAL EXAM: Patient is awake, alert, and oriented 3. Speech and language are normal. Strength is full in all 4 extremities. Sensory exam is diminished to light touch in bilateral lower extremities as well as left facial area.. No pronator drift is seen. No facial asymmetry is seen on cranial nerve testing. No tremors or seizure-like activity is noted. - Labs CBC & Chem 7: 11/25/16 11:50 11/25/16 11:50 Labs: Abnormal Lab Results - Last 24 Hours (Table) 11/25/16 11/25/16 11/26/16 Range/Units 16:51 21:00 05:47 POC Glucose (mg/dL) 217 H 142 H (75-99) mg/dL Triglycerides 866 H (<150) mg/dL HDL Cholesterol 27 L (40-60) mg/dL 11/26/16 11/26/16 Range/Units 06:03 12:37 POC Glucose (mg/dL) 179 H 174 H (75-99) mg/dL Triglycerides (<150) mg/dL HDL Cholesterol (40-60) mg/dL Assessment and Plan Plan: Impression: 1. Acute ischemic stroke 2. Left-sided weakness 3. Polypharmacy 4. Chronic pain syndrome 5. Peripheral polyneuropathy 6. Diabetes Recommendations: Patient does have sensory deficit on the left side as well as bilateral lower extremities. Patient does have prior residual left-sided weakness. I recommend continuing Plavix and aspirin. Serum homocystine level was within normal limits. Lipid panel reveals high triglyceride level of 866 and low HDL of 27. Continue to monitor and adjust statin therapy. Carbamazepine level was 8.6 which is within therapeutic range. EEG was done and results are pending. Carotid Doppler shows no hemodynamically significant stenosis. As previously mentioned, we discussed possible weaning off Tegretol in the outpatient setting. I did discuss with him at length possibility of intrathecal therapy for pain. We can do a pain pump trial in the office setting as an outpatient. Continue physical therapy and occupational therapy. I believe patient would benefit from inpatient rehab. I will continue to follow with you. Further recommendations to follow. I performed an examination of the patient and discussed the management with the FIELD ENGINEER. I have reviewed the FIELD ENGINEER notes and agree with the findings and plan of care.
[2016-11-26 16:35] LABS: Glucose,Whole Blood 184 mg/dL (75-99)
[2016-11-26] MEDS: FAMOTIDINE 20 MG TAB PO SCH (20:12)
[2016-11-26] MEDS: METHADONE 5 MG TAB PO SCH (20:13)
[2016-11-26] MEDS: TAMSULOSIN 0.4 MG CAP.ER.24H PO SCH (20:14)
[2016-11-26] MEDS: PRAVASTATIN SODIUM 40 MG TAB PO SCH (20:14)
[2016-11-26 20:42] LABS: Glucose,Whole Blood 171 mg/dL (75-99)
--- NOTE | 2016-11-27 05:34 | EEG ---
DATE OF SERVICE: 11/26/2016 REASON FOR TESTING: Stroke. DESCRIPTION OF THE PROCEDURE: ( ) DESCRIPTION OF THE RECORDING: From the beginning of the tracing, and with the patient's eyes closed, the background rhythm was mostly consisting of 8 Hz alpha frequency in the posterior occipital leads. No obvious asymmetry is seen. The patient does reach stage II of sleep and occasional sleep spindles and K- complexes are seen. Photic stimulation was performed with no driving response seen. No pathological waves were elicited. Hyperventilation was not performed. No epileptiform discharges were seen. His EKG lead showed a regular rate and rhythm. INTERPRETATION: This asleep and awake EEG can be considered within normal limits. There was no asymmetry seen. No epileptiform discharges were noticed. The absence of epileptiform discharges does not rule out the diagnosis of epilepsy, therefore, clinical correlation is recommended. MTDD
[2016-11-27 06:07] LABS: Glucose,Whole Blood 163 mg/dL (75-99)
[2016-11-27] MEDS: carBAMazepine 200 MG TAB PO SCH ×3 (06:29→20:58)
[2016-11-27] MEDS: CARVEDILOL 6.25 MG TAB PO SCH ×2 (06:29→17:15)
[2016-11-27] MEDS: PANTOPRAZOLE 40 MG TABLET PO SCH ×2 (06:29→17:15)
[2016-11-27] MEDS: SODIUM CHLORIDE 0.9% 1,000 ML IV SCH ×2 (06:30→20:57)
[2016-11-27] MEDS: SERTRALINE 100 MG TAB PO SCH (08:33)
[2016-11-27] MEDS: metFORMIN 500 MG TAB PO SCH ×2 (08:33→20:58)
[2016-11-27] MEDS: CLOPIDOGREL 75 MG TAB PO SCH (08:33)
[2016-11-27] MEDS: ASPIRIN 325 MG TAB PO SCH (08:33)
[2016-11-27] MEDS: FENOFIBRATE 160 MG TAB PO SCH (08:33)
[2016-11-27] MEDS: ZIPRASIDONE 20 MG CAP PO SCH ×3 (08:33→21:00)
[2016-11-27] MEDS: PREGABALIN 100 MG CAP PO SCH ×3 (08:33→21:00)
[2016-11-27] MEDS: INSULIN LISPRO (humaLOG) 300 UNIT/3 ML VIAL SQ SCH ×3 (08:34→17:14)
[2016-11-27 12:16] LABS: Glucose,Whole Blood 242 mg/dL (75-99)
--- NOTE | 2016-11-27 13:42 | P.PN ---
Subjective This is a 66-year-old gentleman with multiple medical problems including history of myoclonic seizures, history of CP arrest, chronic pain syndrome, peripheral neuropathy, diabetes mellitus, essential hypertension, chronic pain syndrome comes into the hospital as patient was noted to have a vague episode of left-sided tingling that lasted for a few hours. Patient was admitted with the diagnosis of acute CVA. At the time of my evaluation patient states that his only symptoms are some left -sided pain likely description sharp lasted for a few minutes. No alleviating or exacerbating factors were reported Patient has had any headaches any focal weakness numbness chest pain blurry vision dizziness. Patient at baseline is not able to get out of a chair is bedridden and needs to be helped by 2 people to get out of bed [facility] At the time of admission patient states that his symptoms are resolved 11/26/2016 Patient is seen today after his EEG Denies having any new additional complaints 11/27/2016 Patient is stable no new overnight events Denies having any recurrence of his symptoms headaches change in vision nausea vomiting diarrhea Physical exam Neck is supple no JVD Lungs good air entry clear to auscultation no rhonchi or wheezing Heart S1-S2 heard regular rate and rhythm no murmurs appreciated Abdomen is soft nontender no organomegaly bowel sounds are intact Neurologically cranial nerves II-12 grossly intact Strength in the upper extremities is 5 out of 5 lower extremities his distal is 5 out of 5 proximally about 3-4 out of 5 Skin no abnormalities appreciated Objective - Vital Signs Vital signs: Vital Signs Temp 98.9 F 11/27/16 12:00 Pulse 68 11/27/16 12:00 Resp 20 11/27/16 12:00 BP 148/66 11/27/16 12:00 Pulse Ox 97 11/27/16 12:00 Intake & Output 11/26/16 11/27/16 11/27/16 18:59 06:59 18:59 Intake Total 2182 940 Balance 2182 940 Weight 115 kg Intake: IV 650 500 Sodium Chloride 0.9% 1, 650 500 000 ml @ 100 mls/hr IV . Q10H [facility] Rx#:[id number] Oral [id number] 517 Other: Voiding Method Urinal Urinal Urinal Diaper Diaper Diaper # Voids 2 1 2 - Labs CBC & Chem 7: 11/25/16 11:50 11/25/16 11:50 Labs: Abnormal Lab Results - Last 24 Hours (Table) 11/26/16 11/26/16 11/27/16 Range/Units 16:24 20:41 06:06 POC Glucose (mg/dL) 184 H 171 H 163 H (75-99) mg/dL 11/27/16 Range/Units 11:55 POC Glucose (mg/dL) 242 H (75-99) mg/dL Assessment and Plan Plan: a/p Acute suspected CVA with vague left sided sensory loss DM2 Peripheral neuropathy HTN History of myoclonus Obesity Obstructive sleep apnea History of cardiopulmonary arrest Plan pt at baseline is bedridden pt/ot echocardiogram carotid Doppler were reviewed Placement. Pending approval from [place] system neurology's recommendation to titrate of Tegretol and pain medications on an outpatient basis may need a placement after workup
--- NOTE | 2016-11-27 16:47 | P.PN ---
Subjective Principal diagnosis: Patient is a pleasant 63-year-old male who is being followed by the neurology service for stroke. Patient came to [facility] emergency room with complaints of left-sided weakness. Patient does have history of stroke with residual left-sided weakness. Patient states his left-sided weakness was worse prompting him to come to the emergency room. Patient is on aspirin and Plavix at home. Computed tomography scan of the brain showed no acute findings. Patient does have history of diabetes with significant peripheral neuropathy. Patient also has chronic pain syndrome for which she is on methadone and hydrocodone. At the time of my evaluation, patient is resting comfortably in bed and appears to be in no acute distress. Patient reports improvement in his left-sided weakness since admission. 11/27/2016 Patient is a 66-year-old male who is being followed by the neurology service for stroke. Patient does report history of chronic pain syndrome, peripheral neuropathy, diabetes mellitus, in seizures. Patient came to [facility] with complaints of worsening left-sided weakness. Patient states he is slowly returning to baseline. Left-sided weakness has improved. At the time of my evaluation, patient's resting comfortably in bed and appears to be in no acute distress. is at the bedside. Objective - Vital Signs Vital signs: Vital Signs Temp 98.5 F 11/27/16 15:55 Pulse 70 11/27/16 15:55 Resp 18 11/27/16 15:55 BP 156/74 11/27/16 15:55 Pulse Ox 96 11/27/16 15:55 Intake & Output 11/26/16 11/27/16 11/27/16 18:59 06:59 18:59 Intake Total 2182 940 Balance 2182 940 Weight 115 kg Intake: IV 650 500 Sodium Chloride 0.9% 1, 650 500 000 ml @ 100 mls/hr IV . Q10H [facility] Rx#:[id number] Oral 1532 440 Other: Voiding Method Urinal Urinal Urinal Diaper Diaper Diaper # Voids 2 1 2 # Bowel Movements 0 - Exam PHYSICAL EXAM: GENERAL APPEARANCE: Patient is a well-developed, male who appears to be in no acute distress. HEENT: Normocephalic, atraumatic, no facial asymmetry is seen. Neck is supple with no masses felt. CARDIOVASCULAR: Regular rate and rhythm. ABDOMEN: Nontender, nondistended. EXTREMITIES: Show no edema or clubbing. NEUROLOGICAL EXAM: Patient is awake, alert, and oriented 3. Speech and language are normal. Strength is full in all 4 extremities. Sensory exam is diminished to light touch in bilateral lower extremities as well as left facial area.. No pronator drift is seen. No facial asymmetry is seen on cranial nerve testing. No tremors or seizure-like activity is noted. - Labs CBC & Chem 7: 11/25/16 11:50 11/25/16 11:50 Labs: Abnormal Lab Results - Last 24 Hours (Table) 11/26/16 11/26/16 11/27/16 Range/Units 16:24 20:41 06:06 POC Glucose (mg/dL) 184 H 171 H 163 H (75-99) mg/dL 11/27/16 Range/Units 11:55 POC Glucose (mg/dL) 242 H (75-99) mg/dL Assessment and Plan Plan: Impression: 1. Acute ischemic stroke 2. Left-sided weakness 3. Polypharmacy 4. Chronic pain syndrome 5. Peripheral polyneuropathy 6. Diabetes Recommendations: Patient does have sensory deficit on the left side as well as bilateral lower extremities. Patient does have prior residual left-sided weakness but is 5/5 on exam today. I recommend continuing Plavix and aspirin. Serum homocystine level was within normal limits. Lipid panel reveals high triglyceride level of 866 and low HDL of 27. Continue to monitor and adjust statin therapy. Carbamazepine level was 8.6 which is within therapeutic range. As previously mentioned, we discussed possible weaning off Tegretol in the outpatient setting. EEG was normal. Carotid Doppler shows no hemodynamically significant stenosis. I did discuss with him at length possibility of intrathecal therapy for pain. We can do a pain pump trial in the office setting as an outpatient. Continue physical therapy and occupational therapy. I believe patient would benefit from inpatient rehab. Patient is stable for discharge from neurological standpoint. [facility] and [facility] are [facility] for [facility]. I will continue to follow with you. Further recommendations to follow. I performed an examination of the patient and discussed the management with the BISCUITWARE BRUSHER. I have reviewed the BISCUITWARE BRUSHER notes and agree with the findings and plan of care.
[2016-11-27 17:04] LABS: Glucose,Whole Blood 182 mg/dL (75-99)
[2016-11-27 20:36] LABS: Glucose,Whole Blood 103 mg/dL (75-99)
[2016-11-27] MEDS: METHADONE 5 MG TAB PO SCH (20:58)
[2016-11-27] MEDS: FAMOTIDINE 20 MG TAB PO SCH (20:58)
[2016-11-27] MEDS: PRAVASTATIN SODIUM 40 MG TAB PO SCH (21:00)
[2016-11-27] MEDS: TAMSULOSIN 0.4 MG CAP.ER.24H PO SCH (21:00)
[2016-11-28 05:46] LABS: Glucose,Whole Blood 176 mg/dL (75-99)
[2016-11-28] MEDS: SODIUM CHLORIDE 0.9% 1,000 ML IV SCH ×2 (06:15→14:40)
[2016-11-28] MEDS: CARVEDILOL 6.25 MG TAB PO SCH ×2 (06:16→18:07)
[2016-11-28] MEDS: PANTOPRAZOLE 40 MG TABLET PO SCH ×2 (06:16→18:07)
[2016-11-28] MEDS: carBAMazepine 200 MG TAB PO SCH ×3 (06:16→20:12)
[2016-11-28] MEDS: INSULIN LISPRO (humaLOG) 300 UNIT/3 ML VIAL SQ SCH ×3 (07:56→18:01)
[2016-11-28] MEDS: ZIPRASIDONE 20 MG CAP PO SCH ×3 (08:06→21:43)
[2016-11-28] MEDS: PREGABALIN 100 MG CAP PO SCH ×3 (08:06→20:21)
[2016-11-28] MEDS: ASPIRIN 325 MG TAB PO SCH (08:07)
[2016-11-28] MEDS: metFORMIN 500 MG TAB PO SCH ×2 (08:07→20:21)
[2016-11-28] MEDS: FENOFIBRATE 160 MG TAB PO SCH (08:08)
[2016-11-28] MEDS: SERTRALINE 100 MG TAB PO SCH (08:08)
[2016-11-28] MEDS: CLOPIDOGREL 75 MG TAB PO SCH (08:11)
[2016-11-28 12:19] LABS: Glucose,Whole Blood 197 mg/dL (75-99)
--- NOTE | 2016-11-28 15:59 | P.PN ---
Subjective Principal diagnosis: Patient is a pleasant 63-year-old male who is being followed by the neurology service for stroke. Patient came to [facility] emergency room with complaints of left-sided weakness. Patient does have history of stroke with residual left-sided weakness. Patient states his left-sided weakness was worse prompting him to come to the emergency room. Patient is on aspirin and Plavix at home. Computed tomography scan of the brain showed no acute findings. Patient does have history of diabetes with significant peripheral neuropathy. Patient also has chronic pain syndrome for which she is on methadone and hydrocodone. At the time of my evaluation, patient is resting comfortably in bed and appears to be in no acute distress. Patient reports improvement in his left-sided weakness since admission. 11/27/2016 Patient is a 66-year-old male who is being followed by the neurology service for stroke. Patient does report history of chronic pain syndrome, peripheral neuropathy, diabetes mellitus, in seizures. Patient came to [facility] with complaints of worsening left-sided weakness. Patient states he is slowly returning to baseline. Left-sided weakness has improved. At the time of my evaluation, patient's resting comfortably in bed and appears to be in no acute distress. is at the bedside. 11/28/2016 Patient is a pleasant 66-year-old male who is being followed by the neurology service for stroke. Patient states left-sided weakness has greatly improved since admission. Patient denies any difficulty swallowing. Patient has been up working with physical therapy. Patient does have history of chronic pain syndrome and significant peripheral neuropathy. We previously discussed possible options for chronic pain treatment. At the time of my evaluation, patient's resting comfortably in bed and appears to be in no acute distress. Objective - Vital Signs Vital signs: Vital Signs Temp 98.4 F 11/28/16 15:51 Pulse 60 11/28/16 15:51 Resp 18 11/28/16 15:51 BP 156/75 11/28/16 15:51 Pulse Ox 97 11/28/16 15:51 Intake & Output 11/27/16 11/28/16 11/28/16 18:59 06:59 18:59 Intake Total 1180 118 550 Balance 1180 118 550 Weight 155.1 kg 155.1 kg Intake: IV 500 Sodium Chloride 0.9% 1, 500 000 ml @ 100 mls/hr IV . Q10H [facility] Rx#:[id number] Oral 680 118 550 Other: Voiding Method Urinal Diaper Diaper Diaper # Voids 1 1 3 # Bowel Movements 0 0 - Exam PHYSICAL EXAM: GENERAL APPEARANCE: Patient is a well-developed, male who appears to be in no acute distress. HEENT: Normocephalic, atraumatic, no facial asymmetry is seen. Neck is supple with no masses felt. CARDIOVASCULAR: Regular rate and rhythm. ABDOMEN: Nontender, nondistended. EXTREMITIES: Show no edema or clubbing. NEUROLOGICAL EXAM: Patient is awake, alert, and oriented 3. Speech and language are normal. Strength is full in all 4 extremities. Sensory exam is diminished to light touch in bilateral lower extremities as well as left facial area.. No pronator drift is seen. No facial asymmetry is seen on cranial nerve testing. No tremors or seizure-like activity is noted. - Labs CBC & Chem 7: 11/25/16 11:50 11/25/16 11:50 Labs: Abnormal Lab Results - Last 24 Hours (Table) 11/27/16 11/27/16 11/28/16 Range/Units 16:39 20:35 05:44 POC Glucose (mg/dL) 182 H 103 H 176 H (75-99) mg/dL 11/28/16 Range/Units 12:06 POC Glucose (mg/dL) 197 H (75-99) mg/dL Assessment and Plan Plan: Impression: 1. Acute ischemic stroke 2. Left-sided weakness 3. Polypharmacy 4. Chronic pain syndrome 5. Peripheral polyneuropathy 6. Diabetes Recommendations: Patient does have sensory deficit on the left side as well as bilateral lower extremities. Patient does have prior residual left-sided weakness but is 5/5 on exam today. I recommend continuing Plavix and aspirin. Serum homocystine level was within normal limits. Lipid panel reveals high triglyceride level of 866 and low HDL of 27. Continue to monitor and adjust statin therapy. Carbamazepine level was 8.6 which is within therapeutic range. As previously mentioned, we discussed possible weaning off Tegretol in the outpatient setting. EEG was normal. Carotid Doppler shows no hemodynamically significant stenosis. I did discuss with him at length possibility of intrathecal therapy for pain. We can do a pain pump trial in the office setting as an outpatient. Continue physical therapy and occupational therapy. I believe patient would benefit from inpatient rehab. Patient is stable for discharge from neurological standpoint. I understand [facility] and we are [facility] approval for [facility]. I will continue to follow with you on an as-needed basis. Feel free to call with further questions or concerns. I performed an examination of the patient and discussed the management with the HVAC SERVICE TECH. I have reviewed the HVAC SERVICE TECH notes and agree with the findings and plan of care.
--- NOTE | 2016-11-28 16:52 | P.PN ---
Subjective This is a 66-year-old gentleman with multiple medical problems including history of myoclonic seizures, history of CP arrest, chronic pain syndrome, peripheral neuropathy, diabetes mellitus, essential hypertension, chronic pain syndrome comes into the hospital as patient was noted to have a vague episode of left-sided tingling that lasted for a few hours. Patient was admitted with the diagnosis of acute CVA. At the time of my evaluation patient states that his only symptoms are some left -sided pain likely description sharp lasted for a few minutes. No alleviating or exacerbating factors were reported Patient has had any headaches any focal weakness numbness chest pain blurry vision dizziness. Patient at baseline is not able to get out of a chair is bedridden and needs to be helped by 2 people to get out of bed [facility] At the time of admission patient states that his symptoms are resolved 11/26/2016 Patient is seen today after his EEG Denies having any new additional complaints 11/27/2016 Patient is stable no new overnight events Denies having any recurrence of his symptoms headaches change in vision nausea vomiting diarrhea 11/28/2016 No new overnight events. Patient is in good spirits today. However according to nursing staff patient apparently gets tearful intermittently Patient denies having any headaches blurry vision nausea vomiting diarrhea. Physical exam Neck is supple no JVD Lungs good air entry clear to auscultation no rhonchi or wheezing Heart S1-S2 heard regular rate and rhythm no murmurs appreciated Abdomen is soft nontender no organomegaly bowel sounds are intact Neurologically cranial nerves II-12 grossly intact Strength in the upper extremities is 5 out of 5 lower extremities his distal is 5 out of 5 proximally about 3-4 out of 5 Skin no abnormalities appreciated Objective - Vital Signs Vital signs: Vital Signs Temp 98.4 F 11/28/16 15:51 Pulse 60 11/28/16 15:51 Resp 18 11/28/16 15:51 BP 156/75 11/28/16 15:51 Pulse Ox 97 11/28/16 15:51 Intake & Output 11/27/16 11/28/16 11/28/16 18:59 06:59 18:59 Intake Total 1180 118 550 Balance 1180 118 550 Weight 155.1 kg 155.1 kg Intake: IV 500 Sodium Chloride 0.9% 1, 500 000 ml @ 100 mls/hr IV . Q10H [facility] Rx#:[id number] Oral 680 118 550 Other: Voiding Method Urinal Diaper Diaper Diaper # Voids 1 1 3 # Bowel Movements 0 0 - Labs CBC & Chem 7: 11/25/16 11:50 11/25/16 11:50 Labs: Abnormal Lab Results - Last 24 Hours (Table) 11/27/16 11/27/16 11/28/16 Range/Units 16:39 20:35 05:44 POC Glucose (mg/dL) 182 H 103 H 176 H (75-99) mg/dL 11/28/16 Range/Units 12:06 POC Glucose (mg/dL) 197 H (75-99) mg/dL Assessment and Plan Plan: a/p Acute suspected CVA with vague left sided sensory loss DM2 Peripheral neuropathy HTN History of myoclonus Obesity Obstructive sleep apnea History of cardiopulmonary arrest Plan pt at baseline is bedridden. Needs a placement. pt/ot Pending approval from [place] system neurology's recommendation to titrate of Tegretol and pain medications on an outpatient basis
[2016-11-28 17:42] LABS: Glucose,Whole Blood 97 mg/dL (75-99)
[2016-11-28] MEDS: FAMOTIDINE 20 MG TAB PO SCH (20:12)
[2016-11-28] MEDS: TAMSULOSIN 0.4 MG CAP.ER.24H PO SCH (20:13)
[2016-11-28] MEDS: PRAVASTATIN SODIUM 40 MG TAB PO SCH (20:13)
[2016-11-28] MEDS: METHADONE 5 MG TAB PO SCH (20:20)
[2016-11-28 20:26] LABS: Glucose,Whole Blood 213 mg/dL (75-99)
[2016-11-29 07:32] LABS: Glucose,Whole Blood 229 mg/dL (75-99)
[2016-11-29] MEDS: carBAMazepine 200 MG TAB PO SCH ×3 (07:48→20:05)
[2016-11-29] MEDS: CARVEDILOL 6.25 MG TAB PO SCH ×2 (07:49→16:35)
[2016-11-29] MEDS: INSULIN LISPRO (humaLOG) 300 UNIT/3 ML VIAL SQ SCH ×4 (07:49→22:22)
[2016-11-29] MEDS: CLOPIDOGREL 75 MG TAB PO SCH (07:51)
[2016-11-29] MEDS: PANTOPRAZOLE 40 MG TABLET PO SCH ×2 (07:51→16:35)
[2016-11-29] MEDS: ASPIRIN 325 MG TAB PO SCH (07:51)
[2016-11-29] MEDS: FENOFIBRATE 160 MG TAB PO SCH (07:52)
[2016-11-29] MEDS: SERTRALINE 100 MG TAB PO SCH (07:52)
[2016-11-29] MEDS: metFORMIN 500 MG TAB PO SCH ×2 (07:52→20:05)
[2016-11-29] MEDS: ZIPRASIDONE 20 MG CAP PO SCH ×3 (07:53→20:05)
[2016-11-29] MEDS: PREGABALIN 100 MG CAP PO SCH ×3 (07:57→20:03)
[2016-11-29 11:29] LABS: Glucose,Whole Blood 171 mg/dL (75-99)
[2016-11-29 16:53] LABS: Glucose,Whole Blood 170 mg/dL (75-99)
[2016-11-29] MEDS ORDERED: SENNOSIDES-DOCUSATE SODIUM 1 EACH TAB PO PRN (19:28)
[2016-11-29] MEDS ORDERED: ARTIFICIAL TEARS-HYPROMELLOSE DROPS 15 ML BTL BOTH EYES PRN (19:28)
[2016-11-29] MEDS: METHADONE 5 MG TAB PO SCH (20:03)
[2016-11-29] MEDS: PRAVASTATIN SODIUM 40 MG TAB PO SCH (20:04)
[2016-11-29] MEDS: FAMOTIDINE 20 MG TAB PO SCH (20:04)
[2016-11-29 20:36] LABS: Glucose,Whole Blood 129 mg/dL (75-99)
[2016-11-29] MEDS: INSULIN GLARGINE 100 UNIT/ML 10 ML VIAL SQ SCH (22:21)
[2016-11-29] MEDS: ALLOPURINOL 100 MG TAB PO SCH (22:44)
[2016-11-29] MEDS: TAMSULOSIN 0.4 MG CAP.ER.24H PO SCH (22:44)
[2016-11-30] MEDS: LEVOTHYROXINE 50 MCG TAB PO SCH (06:17)
[2016-11-30 07:55] LABS: Glucose,Whole Blood 210 mg/dL (75-99)
[2016-11-30] MEDS: FINASTERIDE 5 MG TAB PO SCH (09:43)
[2016-11-30] MEDS: ZIPRASIDONE 20 MG CAP PO SCH ×3 (09:43→21:20)
[2016-11-30] MEDS: ASPIRIN 325 MG TAB PO SCH (09:44)
[2016-11-30] MEDS: carBAMazepine 200 MG TAB PO SCH ×3 (09:44→21:20)
[2016-11-30] MEDS: CLOPIDOGREL 75 MG TAB PO SCH (09:44)
[2016-11-30] MEDS: metFORMIN 500 MG TAB PO SCH ×2 (09:44→21:19)
[2016-11-30] MEDS: PANTOPRAZOLE 40 MG TABLET PO SCH ×2 (09:44→17:50)
[2016-11-30] MEDS: FENOFIBRATE 160 MG TAB PO SCH (09:45)
[2016-11-30] MEDS: CARVEDILOL 6.25 MG TAB PO SCH ×2 (09:45→17:50)
[2016-11-30] MEDS: ALLOPURINOL 100 MG TAB PO SCH ×2 (09:45→21:20)
[2016-11-30] MEDS: MULTIVITAMINS, THERA 1 EACH TAB PO SCH (09:45)
[2016-11-30] MEDS: SERTRALINE 100 MG TAB PO SCH (09:45)
[2016-11-30] MEDS: PREGABALIN 100 MG CAP PO SCH ×3 (09:48→21:20)
[2016-11-30] MEDS: INSULIN LISPRO (humaLOG) 300 UNIT/3 ML VIAL SQ SCH ×4 (09:48→21:21)
[2016-11-30 12:09] LABS: Glucose,Whole Blood 251 mg/dL (75-99)
--- NOTE | 2016-11-30 14:42 | PN ---
DATE OF SERVICE: 11/29/2016 This 66-year-old gentleman who was admitted with suspected CVA with left-sided sensory loss, also was complaining of tiredness and weakness. The patient is followed in the [facility] in the outpatient setting. Rehab is being planned. Neurology is following the patient closely. Dr. Brooke has seen the patient. PAST MEDICAL HISTORY: Reviewed. REVIEW OF SYSTEMS: CARDIOVASCULAR: No angina. RESPIRATORY: As mentioned earlier. GI: No nausea. : No dysuria. NERVOUS SYSTEM: No numbness or weakness. Current medications are reviewed and include: 1. Aspirin 325 mg. 2. Tegretol 400 mg 3. Coreg 6.25 mg bid 4. Plavix 75 mg daily. 5. Pepcid 40 mg. 6. Lofibra 160 mg daily. 7. Humalog. 8. Glucophage. 9. Protonix. 10. Pravachol. 11. Zoloft. 12. Flomax. 13. Geodon. PHYSICAL EXAMINATION: The patient is alert and oriented x3. Pulse 68, blood pressure 170/79, respirations 18, temperature 97.8, pulse ox 94% on room air. HEENT: Conjunctivae normal. NECK: No jugular venous distention. CARDIOVASCULAR: S1, S2. RESPIRATORY: Breath sounds diminished at the bases. A few scattered rhonchi and crackles. ABDOMEN: Soft, nontender. LEGS: No edema, no swelling. NERVOUS SYSTEM: Diffusely weak, left more than the right. LABS: Hemoglobin 12.9, Accu-Cheks are noted. Otherwise triglycerides 866. ASSESSMENT: 1. Acute left-sided weakness caused by right hemispheric acute ischemic stroke. 3. Chronic pain syndrome. 4. Peripheral neuropathy. 5. Diabetes mellitus type 2. 6. Hyperlipidemia. RECOMMENDATIONS AND DISCUSSION: In this 66-year-old gentleman who presented with multiple complex medical issues, will monitor the patient closely. Continue the current medications, continue symptomatic treatment. I would recommend antiplatelet agents and as well as patient is on fenofibrate as well. I will continue pravastatin. Will continue the current medications. Otherwise PT, OT evaluation, possible ECF rehab. See orders for details. Further recommendations to follow. Discussed with the patient. ADDIE
[2016-11-30] MEDS: ACETAMINOPHEN TAB 325 MG TAB PO PRN ×2 (15:06→21:21)
[2016-11-30 17:25] LABS: Glucose,Whole Blood 159 mg/dL (75-99)
[2016-11-30 18:08] LABS: ALT 56 U/L (21-72); AST 59 U/L (17-59); Alkaline Phosphatase 71 U/L (38-126); Anion Gap 15 mmol/L; Blood Urea Nitrogen 37 mg/dL (9-20); Calcium 10.7 mg/dL (8.4-10.2); Carbon Dioxide 29 mmol/L (22-30); Chloride 102 mmol/L (98-107); Glucose 161 mg/dL (74-99); Non-African American GFR(MDRD) >60 (>60 ml/min/1.73 sqM); Potassium 4.8 mmol/L (3.5-5.1); Sodium 146 mmol/L (137-145); Total Bilirubin 0.4 mg/dL (0.2-1.3); Total Protein 7.8 g/dL (6.3-8.2)
[2016-11-30 20:59] LABS: Glucose,Whole Blood 219 mg/dL (75-99)
[2016-11-30] MEDS: TAMSULOSIN 0.4 MG CAP.ER.24H PO SCH (21:19)
[2016-11-30] MEDS: INSULIN GLARGINE 100 UNIT/ML 10 ML VIAL SQ SCH (21:20)
[2016-11-30] MEDS: METHADONE 5 MG TAB PO SCH (21:22)
[2016-11-30] MEDS: PRAVASTATIN SODIUM 40 MG TAB PO SCH (21:25)
[2016-11-30] MEDS: FAMOTIDINE 20 MG TAB PO SCH (22:40)
[2016-12-01] MEDS: ACETAMINOPHEN TAB 325 MG TAB PO PRN ×2 (01:30→22:25)
[2016-12-01] MEDS: LEVOTHYROXINE 50 MCG TAB PO SCH (06:04)
[2016-12-01 07:25] LABS: Glucose,Whole Blood 179 mg/dL (75-99)
[2016-12-01 07:32] LABS: Basophils % (A) 1 %; CH 30.5; CHCM 34.8; Eosinophils # (A) 0.1 k/uL (0-0.7); Eosinophils % (A) 1 %; HCT 39.8 % (39.0-53.0); HDW 3.02; HGB 13.3 gm/dL (13.0-17.5); Luc # (Auto) 0.15; Luc % (Auto) 2; Lymphocytes # (A) 1.5 k/uL (1.0-4.8); Lymphocytes % (A) 24 %; MCH 29.5 pg (25.0-35.0); MCHC 33.5 g/dL (31.0-37.0); MCV 87.9 fL (80.0-100.0); Mean Platelet Volume 7.7; Monocytes # (A) 0.3 k/uL (0-1.0); Monocytes % (A) 5 %; Neutrophils # (A) 4.3 k/uL (1.3-7.7); Neutrophils % (A) 67 %; RBC 4.53 m/uL (4.30-5.90); RDW 14.4 % (11.5-15.5); WBC 6.5 k/uL (3.8-10.6); WBC (Perox) 6.53
[2016-12-01] MEDS: metFORMIN 500 MG TAB PO SCH ×2 (07:38→21:30)
[2016-12-01] MEDS: CLOPIDOGREL 75 MG TAB PO SCH (07:39)
[2016-12-01] MEDS: FINASTERIDE 5 MG TAB PO SCH (07:39)
[2016-12-01] MEDS: SERTRALINE 100 MG TAB PO SCH (07:39)
[2016-12-01] MEDS: MULTIVITAMINS, THERA 1 EACH TAB PO SCH (07:39)
[2016-12-01] MEDS: ZIPRASIDONE 20 MG CAP PO SCH ×3 (07:39→21:31)
[2016-12-01] MEDS: PANTOPRAZOLE 40 MG TABLET PO SCH ×2 (07:39→17:04)
[2016-12-01] MEDS: FENOFIBRATE 160 MG TAB PO SCH (07:40)
[2016-12-01] MEDS: ALLOPURINOL 100 MG TAB PO SCH ×2 (07:40→21:34)
[2016-12-01] MEDS: carBAMazepine 200 MG TAB PO SCH ×3 (07:40→21:33)
[2016-12-01] MEDS: CARVEDILOL 6.25 MG TAB PO SCH ×2 (07:40→17:04)
[2016-12-01] MEDS: ASPIRIN 325 MG TAB PO SCH (07:40)
[2016-12-01] MEDS: INSULIN LISPRO (humaLOG) 300 UNIT/3 ML VIAL SQ SCH ×4 (07:44→21:31)
[2016-12-01 07:50] LABS: Cholesterol 208 mg/dL (<200); HDL Cholesterol 31 mg/dL (40-60)
[2016-12-01] MEDS: PREGABALIN 100 MG CAP PO SCH ×3 (08:18→21:36)
[2016-12-01 12:14] LABS: Glucose,Whole Blood 227 mg/dL (75-99)
--- NOTE | 2016-12-01 16:38 | PN ---
DATE OF SERVICE: 11/30/2016 This 66-year-old gentleman was admitted with suspected CVA, sensory loss, also complaining of tiredness and weakness. The patient was following in the outpatient clinic in the [place]. Rehab is being planned at this time. The patient is being closely monitored. PAST MEDICAL HISTORY: Reviewed. REVIEW OF SYSTEMS: CARDIOVASCULAR: No angina or palpitation. RESPIRATORY: As mentioned earlier. GI: No nausea. : No dysuria. NERVOUS SYSTEM: As mentioned earlier. CURRENT MEDICATIONS: Reviewed and include: 1. Tylenol 650 q6 p.r.n. 2. Zyloprim 100 mg p.o. b.i.d. 3. Artificial Tears. 4. Aspirin 325 mg daily. 5. Tegretol 400 mg p.o. b.i.d. 6. Coreg 6.25 mg p.o. b.i.d. 7. Plavix 75 mg p.o. daily. 8. Vitamin D2, 50,000 units q7days. 9. Pepcid. 10. Lofibra. 11. Proscar 5 mg p.o. 12. Lantus 90 units subcu q.h.s. 13. Synthroid. 14. Methadone 7.5 q.h.s. 15. Multivitamin one p.o. daily. 16. Protonix 40 mg b.i.d. 17. Pravachol. 18. Senokot. 19. Zoloft. 20. Flomax. 21. Geodon. PHYSICAL EXAMINATION: Alert and oriented x3. Pulse 78, blood pressure 158/75, respirations 20, temperature 98 degrees, pulse ox 94% on room air. HEENT: Conjunctivae normal. NECK: No jugular venous distention. CARDIOVASCULAR: S1/.S2. RESPIRATIONS: Diminished breath sounds, especially at the bases. A few rhonchi. No crackles. ABDOMEN: Soft, nontender. LEGS: No edema. NERVOUS SYSTEM: No focal deficits. LABS: Triglycerides 866. ASSESSMENT: 1. Acute left-sided weakness, possible right hemispheric acute ischemic stroke. 2. Hyperlipidemia. 3. Chronic pain syndrome. 4. Peripheral neuropathy. 5. Diabetes type 2. 6. Hyperlipidemia. 7. Gait dysfunction. RECOMMENDATIONS AND DISCUSSION: This 66-year-old gentleman who presented with multiple complex medical issues, will monitor the patient closely, continue the current medication, continue symptomatic treatment, PT and OT evaluation, recommend repeat labs. The patient has got triglycerides 866. Currently the patient is on fenofibrate, will continue to monitor. Possibility of rehab. Guarded prognosis. Further recommendations to follow. MTDD
[2016-12-01 16:57] LABS: Glucose,Whole Blood 185 mg/dL (75-99)
[2016-12-01 20:22] LABS: Glucose,Whole Blood 265 mg/dL (75-99)
[2016-12-01] MEDS: METHADONE 5 MG TAB PO SCH (21:29)
[2016-12-01] MEDS: INSULIN GLARGINE 100 UNIT/ML 10 ML VIAL SQ SCH (21:31)
[2016-12-01] MEDS: PRAVASTATIN SODIUM 40 MG TAB PO SCH (21:32)
[2016-12-01] MEDS: FAMOTIDINE 20 MG TAB PO SCH (21:34)
[2016-12-01] MEDS: TAMSULOSIN 0.4 MG CAP.ER.24H PO SCH (21:35)
[2016-12-02] MEDS: ACETAMINOPHEN TAB 325 MG TAB PO PRN (05:19)
[2016-12-02] MEDS: LEVOTHYROXINE 50 MCG TAB PO SCH (06:20)
[2016-12-02 07:10] LABS: Glucose,Whole Blood 185 mg/dL (75-99)
[2016-12-02] MEDS: carBAMazepine 200 MG TAB PO SCH ×2 (07:11→11:48)
[2016-12-02] MEDS: ASPIRIN 325 MG TAB PO SCH (07:11)
[2016-12-02] MEDS: metFORMIN 500 MG TAB PO SCH (07:11)
[2016-12-02] MEDS: PREGABALIN 100 MG CAP PO SCH (07:11)
[2016-12-02] MEDS: FENOFIBRATE 160 MG TAB PO SCH (07:11)
[2016-12-02] MEDS: ALLOPURINOL 100 MG TAB PO SCH (07:11)
[2016-12-02] MEDS: PANTOPRAZOLE 40 MG TABLET PO SCH (07:11)
[2016-12-02] MEDS: CLOPIDOGREL 75 MG TAB PO SCH (07:11)
[2016-12-02] MEDS: ZIPRASIDONE 20 MG CAP PO SCH (07:11)
[2016-12-02] MEDS: CARVEDILOL 6.25 MG TAB PO SCH (07:12)
[2016-12-02] MEDS: FINASTERIDE 5 MG TAB PO SCH (07:12)
[2016-12-02] MEDS: SERTRALINE 100 MG TAB PO SCH (07:12)
[2016-12-02 07:25] VITALS: BP 152/78; PULSE 67; RESP 16; TEMP 97
[2016-12-02] MEDS: INSULIN LISPRO (humaLOG) 300 UNIT/3 ML VIAL SQ SCH (07:49)
[2016-12-02 11:11] LABS: Glucose,Whole Blood 171 mg/dL (75-99)
--- NOTE | 2016-12-02 11:16 | P.DS ---
Providers Date of admission: 11/25/16 15:19 Attending physician: Jermain Tenorio MD Consults: 11/25/16 15:19 Consult Physician Routine Consulting Provider: Stef Brooke Consult Reason/Comments: cva Do you want consulting provider notified?: Yes Primary care physician: [facility] Course: This 66-year-old gentleman with a past medical history multiple medical problems being followed baby was admitted with the weakness of the left side of the body Cosper CVI. The patient had right hemispheric lesion. Seen by neurology. Neuromuscular workup was done. The patient is improving. PTOT was evaluated. The patient be sent to rehabilitation for PT and continued rehabilitation. X On exam vitals are stable cardio S1 and S2 normal abdomen soft nervous system left sided weakness. Final diagnosis 1. Acute left-sided weakness crossbite right hemispheric acute ischemic stroke. 2. Hyperlipidemia 3. Chronic pain syndrome 4. Peripheral neuropathy 5. Diabetes was type II 6. Hypertriglyceridemia 7. Gait dysfunction Plan - Discharge Summary New Discharge Prescriptions: New Fenofibrate [Lofibra] 160 mg PO DAILY tab Continue Levothyroxine Sodium [Synthroid] 50 mcg PO DAILY carBAMazepine [TEGretol] 400 mg PO BID@0700,2100 Pregabalin [Lyrica] 100 mg PO TID Finasteride [Proscar] 5 mg PO DAILY Ziprasidone [Geodon] 20 mg PO TID Sertraline [Zoloft] 200 mg PO DAILY Allopurinol [Zyloprim] 100 mg PO BID Insulin Aspart [NovoLOG] 32 units SQ AC-TID Ergocalciferol [Vitamin D2 (DRISDOL)] 50,000 unit PO Q7D Tamsulosin [Flomax] 0.8 mg PO HS Pravastatin Sodium [Pravachol] 40 mg PO HS Loratadine [Claritin] 10 mg PO DAILY Crandall-3 Fatty Acids/Fish Oil [Fish Oil 1,000 mg Softgel] 2 cap PO BID Multivitamin [Men's Multi-Vitamin] 1 tab PO DAILY Baclofen [Lioresal] 20 mg PO HS Baclofen [Lioresal] 10 mg PO BID@0700,1500 carBAMazepine [TEGretol] 200 mg PO DAILY@1200 Cyanocobalamin [Vitamin B-12 Injection] 1,000 mcg SQ QMONTH Insulin Aspart [NovoLOG] See Protocol SQ PC-TID metFORMIN HCL 1,000 mg PO BID Clopidogrel Bisulfate [Plavix] 75 mg PO DAILY #20 tab Artificial Tears Ointment [Lubrifresh Pm Ointment] 1 applic BOTH EYES HS Artificial Tears-Hypromellose [Artificial Tear Drops] 1 drops BOTH EYES TID PRN PRN Reason: Dry eyes Carvedilol [Coreg] 6.25 mg PO BID Insulin Glargine,Hum.rec.anlog [Lantus Solostar] 90 unit SQ HS Miconazole Nitrate [Lotrimin AF Powder] 1 applic TOPICAL BID PRN PRN Reason: On Skin Pantoprazole Sodium [Protonix] 40 mg PO BID Ranitidine HCl [Zantac] 300 mg PO HS Sennosides/Docusate Sodium [Docusate Sodium-Senna Tablet] 2 tab PO BID PRN PRN Reason: Constipation clonazePAM [KlonoPIN] 0.5 mg PO TID #20 HYDROcodone/APAP 10-325MG [Etters 10-325] 1 tab PO Q6H PRN #20 PRN Reason: Pain Methadone [Dolophine] 7.5 mg PO HS #5 Discontinued Methadone [Dolophine] 5 mg PO BID@0800,1400 Gemfibrozil [Lopid] 600 mg PO BID Discharge Medication List Allopurinol [Zyloprim] 100 mg PO BID 12/02/14 [History] Ergocalciferol [Vitamin D2 (DRISDOL)] 50,000 unit PO Q7D 12/02/14 [History] Finasteride [Proscar] 5 mg PO DAILY 12/02/14 [History] Insulin Aspart [NovoLOG] 32 units SQ AC-TID 12/02/14 [History] Levothyroxine Sodium [Synthroid] 50 mcg PO DAILY 12/02/14 [History] Loratadine [Claritin] 10 mg PO DAILY 12/02/14 [History] Multivitamin [Men's Multi-Vitamin] 1 tab PO DAILY 12/02/14 [History] Crandall-3 Fatty Acids/Fish Oil [Fish Oil 1,000 mg Softgel] 2 cap PO BID 12/02/14 [ History] Pravastatin Sodium [Pravachol] 40 mg PO HS 12/02/14 [History] Pregabalin [Lyrica] 100 mg PO TID 12/02/14 [History] Sertraline [Zoloft] 200 mg PO DAILY 12/02/14 [History] Tamsulosin [Flomax] 0.8 mg PO HS 12/02/14 [History] Ziprasidone [Geodon] 20 mg PO TID 12/02/14 [History] carBAMazepine [TEGretol] 400 mg PO BID@0700,2100 12/02/14 [History] Baclofen [Lioresal] 10 mg PO BID@0700,1500 09/30/15 [History] Baclofen [Lioresal] 20 mg PO HS 09/30/15 [History] Cyanocobalamin [Vitamin B-12 Injection] 1,000 mcg SQ QMONTH 09/30/15 [History] Insulin Aspart [NovoLOG] See Protocol SQ PC-TID 09/30/15 [History] carBAMazepine [TEGretol] 200 mg PO DAILY@1200 09/30/15 [History] metFORMIN HCL 1,000 mg PO BID 09/30/15 [History] Clopidogrel Bisulfate [Plavix] 75 mg PO DAILY #20 tab 10/01/15 [Rx] Artificial Tears Ointment [Lubrifresh Pm Ointment] 1 applic BOTH EYES HS [History] Artificial Tears-Hypromellose [Artificial Tear Drops] 1 drops BOTH EYES TID PRN 11/25/16 [History] Carvedilol [Coreg] 6.25 mg PO BID 11/25/16 [History] Insulin Glargine,Hum.rec.anlog [Lantus Solostar] 90 unit SQ HS 11/25/16 [History ] Miconazole Nitrate [Lotrimin AF Powder] 1 applic TOPICAL BID PRN 11/25/16 [ History] Pantoprazole Sodium [Protonix] 40 mg PO BID 11/25/16 [History] Ranitidine HCl [Zantac] 300 mg PO HS 11/25/16 [History] Sennosides/Docusate Sodium [Docusate Sodium-Senna Tablet] 2 tab PO BID PRN 11/25 [History] Fenofibrate [Lofibra] 160 mg PO DAILY tab 12/02/16 [Rx] HYDROcodone/APAP 10-325MG [Etters 10-325] 1 tab PO Q6H PRN #20 12/02/16 [Rx] Methadone [Dolophine] 7.5 mg PO HS #5 12/02/16 [Rx] clonazePAM [KlonoPIN] 0.5 mg PO TID #20 12/02/16 [Rx] Follow up Appointment(s)/Referral(s): Stef Brooke MD [STAFF PHYSICIAN] - 1 Week Arash Gutierrez DO [Primary Care Provider] - 1-2 days Activity/Diet/Wound Care/Special Instructions: Diet consistent carb Accu-Cheks before meals and at bedtime activity as tolerated Discharge Disposition: TRANSFER TO SNF/ECF
[2016-12-02 11:41] VITALS: BMI 34.7
[2016-12-02] MEDS: MULTIVITAMINS, THERA 1 EACH TAB PO SCH (11:48)
[2016-12-02] MEDS ORDERED: ERGOCALCIFEROL 50,000 UNIT CAP PO SCH (12:00)
--- NOTE | 2016-12-02 12:30 | PN ---
This 66-year-old gentleman was admitted with acute CVA. He has improved significantly. No chest pain, no palpitation, no fever. PT and OT evaluated the patient for possible discharge to rehab. On exam, alert and oriented x3, pulse 64, blood pressure 115/75, respirations 20 , temperature 98.4, pulse ox 90% on room air. HEENT: Conjunctivae normal. NECK: No JVD. CARDIOVASCULAR: S1/S2. RESPIRATORY: Diminished breath sounds, especially at the bases. Scattered rhonchi, no crackles. ABDOMEN: Soft, nontender . LEGS: No edema. NERVOUS: Left-sided weakness. LABS: Accu-Cheks noted. Otherwise, CBC noted. ASSESSMENT: 1. Acute left-sided weakness, possible right hemispheric acute ischemic stroke. 2. Hyperlipidemia. 3. Chronic pain. 4. Diabetes mellitus type 2. 5. Peripheral neuropathy. RECOMMENDATIONS AND DISCUSSION: Continue current medication, continue to monitor, continue symptomatic treatment. Otherwise, we will monitor the patient closely. PT and OT evaluation, possibly discharge to rehab. Further recommendations to follow. XAVID
== END 2016-12-02 12:05 | DRG 65 ==
LOC: EC 11:32 → 6SEL 15:19 → 5MS5E 11-28 15:09
PROVIDERS: ADMIT Internal Medicine; ATTEND Internal Medicine
DX: I63.9 Cerebral infarction, unspecified (principal); I69.354 Hemiplegia and hemiparesis following cerebral infarction affecting left non-dominant side; E11.42 Type 2 diabetes mellitus with diabetic polyneuropathy; D69.6 Thrombocytopenia, unspecified; Z86.74 Personal history of sudden cardiac arrest; E03.9 Hypothyroidism, unspecified; E66.9 Obesity, unspecified; E78.1 Pure hyperglyceridemia; E78.5 Hyperlipidemia, unspecified; F31.9 Bipolar disorder, unspecified; F43.10 Post-traumatic stress disorder, unspecified; G47.33 Obstructive sleep apnea (adult) (pediatric); G89.4 Chronic pain syndrome; I10 Essential (primary) hypertension; I25.2 Old myocardial infarction; K21.9 Gastro-esophageal reflux disease without esophagitis; M10.9 Gout, unspecified; N40.0 Benign prostatic hyperplasia without lower urinary tract symptoms; Z79.02 Long term (current) use of antithrombotics/antiplatelets; Z79.4 Long term (current) use of insulin; Z79.82 Long term (current) use of aspirin; Z79.891 Long term (current) use of opiate analgesic; Z79.899 Other long term (current) drug therapy; Z86.718 Personal history of other venous thrombosis and embolism
CPT/HCPCS: 36415; 70450; 71020; 80053; 80061; 80156; 82550; 82553; 83036; 83090; 84484; 85025; 85610; 85730; 93005; 93306; 93880; 94760; 95819

== ENCOUNTER 2016-12-21 15:40 | Observation (INO) | payer OTHER, MEDICARE ==
--- NOTE | 2016-12-21 15:49 | ED ---
General Adult HPI - General Chief complaint: Neuro Symptoms/Deficit Stated complaint: SHAKING ALL OVER Time Seen by Provider: 12/21/16 15:48 Source: EMS, RN notes reviewed, old records reviewed Mode of arrival: EMS Limitations: no limitations - History of Present Illness Initial comments: This is a 66-year-old male here for evaluation. Patient is safe for evaluation regarding not feeling well. Patient is on multiple medications mostly for chronic pain. Neuropathy. Patient was unable to move unable to get up and was found by EMS, patient's poor story. EMS states patient there called the patient 's house this patient was unable to get into his wheelchair at the time patient was having no ability to move at all and patient's family wanted to come the hospital. Patient self denies headache chest pain service breath or abdominal pain. - Related Data Home Medications Medication Instructions Recorded Confirmed Allopurinol [Zyloprim] 100 mg PO BID 12/02/14 12/21/16 Ergocalciferol [Vitamin D2 100,000 unit PO MO 12/02/14 12/21/16 (DRISDOL)] Finasteride [Proscar] 5 mg PO DAILY 12/02/14 12/21/16 Insulin Aspart [NovoLOG] 32 units SQ AC-TID 12/02/14 12/21/16 Levothyroxine Sodium [Synthroid] 50 mcg PO DAILY 12/02/14 12/21/16 Loratadine [Claritin] 10 mg PO DAILY PRN 12/02/14 12/21/16 [place]-3 Fatty Acids/Fish Oil [Fish 2 cap PO BID 12/02/14 12/21/16 Oil 1,000 mg Softgel] Pravastatin Sodium [Pravachol] 40 mg PO HS 12/02/14 12/21/16 Pregabalin [Lyrica] 100 mg PO TID 12/02/14 12/21/16 Sertraline [Zoloft] 200 mg PO QAM 12/02/14 12/21/16 Tamsulosin [Flomax] 0.8 mg PO HS 12/02/14 12/21/16 Ziprasidone [Geodon] 20 mg PO TID@1100,1400,1600 12/02/14 12/21/16 carBAMazepine [TEGretol] 400 mg PO BID@0700,2100 12/02/14 12/21/16 Baclofen [Lioresal] 10 mg PO BID@0700,1500 09/30/15 12/21/16 Cyanocobalamin [Vitamin B-12 1,000 mcg SQ QMONTH 09/30/15 12/21/16 Injection] Insulin Aspart [NovoLOG] See Protocol SQ PC-TID 09/30/15 12/21/16 carBAMazepine [TEGretol] 200 mg PO DAILY@1200 09/30/15 12/21/16 metFORMIN HCL 1,000 mg PO BID 09/30/15 12/21/16 Artificial Tears-Hypromellose 1 drops BOTH EYES TID PRN 11/25/16 12/21/16 [Artificial Tear Drops] Carvedilol [Coreg] 6.25 mg PO BID 11/25/16 12/21/16 Insulin Glargine,Hum.rec.anlog 90 unit SQ HS 11/25/16 12/21/16 [Lantus Solostar] Pantoprazole Sodium [Protonix] 40 mg PO BID 11/25/16 12/21/16 Ranitidine HCl [Zantac] 300 mg PO HS 11/25/16 12/21/16 Sennosides/Docusate Sodium 2 tab PO BID 11/25/16 12/21/16 [Docusate Sodium-Senna Tablet] Baclofen [Lioresal] 20 mg PO HS 12/21/16 12/21/16 Gemfibrozil [Lopid] 600 mg PO BID 12/21/16 12/21/16 Methadone [Dolophine] 5 mg PO BID 12/21/16 12/21/16 Methadone [Dolophine] 7.5 mg PO HS 12/21/16 12/21/16 Multivitamins, Thera [Multivitamin 1 tab PO DAILY 12/21/16 12/21/16 (formulary)] Previous Rx's Medication Instructions Recorded Clopidogrel Bisulfate [Plavix] 75 mg PO DAILY #20 tab 10/01/15 clonazePAM [KlonoPIN] 0.5 mg PO TID #20 12/02/16 Allergies Allergy/AdvReac Type Severity Reaction Status Date / Time etodolac [From Lodine] Allergy Unknown Verified 12/21/16 16:51 oxybutynin Allergy Unknown Verified 12/21/16 16:51 Review of Systems ROS Statement: Those systems with pertinent positive or pertinent negative responses have been documented in the HPI. ROS Other: All systems not noted in ROS Statement are negative. Past Medical History Past Medical History: CVA/TIA, Diabetes Mellitus, GERD/Reflux, Hypertension, Myocardial Infarction (MD), Prostate Disorder, Sleep Apnea/CPAP/BIPAP, Thyroid Disorder Additional Past Medical History / Comment(s): severe neuropathy, hx. gout, back problems, rarely uses CPAP, hx. colon polyps, constipation, had DVT/PE related to drug interaction, has balance problems & hx. falling due to feet completely numb, has hydrocele; Gout; BPH, TIA.past c-diff 2010, Last Myocardial Infarction Date:: 2010 History of Any Multi-Drug Resistant Organisms: None Reported Date of last positivie culture/infection: None MDRO Source:: None Past Surgical History: Hernia Repair Additional Past Surgical History / Comment(s): hiatal hernia repair x 2, umbilical hernia repair Past Anesthesia/Blood Transfusion Reactions: No Reported Reaction Past Psychological History: Bipolar, Depression, PTSD Smoking Status: Never smoker - Past Family History Father Family Medical History: Cancer Mother Family Medical History: Cancer General Exam Limitations: no limitations General appearance: alert, in no apparent distress Head exam: Present: atraumatic, normocephalic, normal inspection Eye exam: Present: normal appearance, PERRL, EOMI. Absent: scleral icterus, conjunctival injection, periorbital swelling ENT exam: Present: normal exam, mucous membranes moist Neck exam: Present: normal inspection. Absent: tenderness, meningismus, lymphadenopathy Respiratory exam: Present: normal lung sounds bilaterally. Absent: respiratory distress, wheezes, rales, rhonchi, stridor Cardiovascular Exam: Present: regular rate, normal rhythm, normal heart sounds. Absent: systolic murmur, diastolic murmur, rubs, gallop, clicks GI/Abdominal exam: Present: soft, normal bowel sounds. Absent: distended, tenderness, guarding, rebound, rigid Extremities exam: Present: normal inspection, full ROM, normal capillary refill. Absent: tenderness, pedal edema, joint swelling, calf tenderness Back exam: Present: normal inspection Neurological exam: Present: alert, oriented X3, CN II-XII intact Psychiatric exam: Present: normal affect, normal mood Skin exam: Present: warm, dry, intact, normal color. Absent: rash Course Vital Signs 09/06/0712/21/16 12/21/16 15:43 16:51 18:02 Temperature 99.1 F 97.4 F L Pulse Rate 62 68 68 Respiratory 20 16 20 Rate Blood Pressure 145/66 122/58 118/58 O2 Sat by Pulse 93 L 98 95 Oximetry - Reevaluation(s) Reevaluation #1: 12/21/16 18:59 Patient has no significant clinical improvement in symptoms EKG Findings - EKG Comments: EKG Findings:: EKG shows sinus rhythm rate of 63, pO2 12, QRS, QTC 440 Medical Decision Making - Medical Decision Making 66 meowed ER for evaluation. Patient presents here for evaluation regarding weakness, patient is UTI, will be For altered mental status weakness and UTI - Lab Data Result diagrams: 12/21/16 15:41 12/21/16 15:41 Lab Results 12/21/16 12/21/16 12/21/16 Range/Units 15:41 15:41 15:41 WBC 7.8 (3.8-10.6) k/uL RBC 4.31 (4.30-5.90) m/uL Hgb 13.2 (13.0-17.5) gm/dL Hct 37.1 L (39.0-53.0) % MCV 86.0 (80.0-100.0) fL MCH 30.7 (25.0-35.0) pg MCHC 35.7 (31.0-37.0) g/dL RDW 14.4 (11.5-15.5) % Plt Count 135 L (150-450) k/uL Neutrophils % 79 % Lymphocytes % 15 % Monocytes % 4 % Eosinophils % 0 % Basophils % 0 % Neutrophils # 6.2 (1.3-7.7) k/uL Lymphocytes # 1.2 (1.0-4.8) k/uL Monocytes # 0.3 (0-1.0) k/uL Eosinophils # 0.0 (0-0.7) k/uL Basophils # 0.0 (0-0.2) k/uL PT (9.0-12.0) sec INR (<1.2) APTT (22.0-30.0) sec Sodium 139 (137-145) mmol/L Potassium 4.6 (3.5-5.1) mmol/L Chloride 102 (98-107) mmol/L Carbon Dioxide 25 (22-30) mmol/L Anion Gap 12 mmol/L BUN 25 H (9-20) mg/dL Creatinine 1.10 (0.66-1.25) mg/dL Est GFR (MDRD) Af Amer >60 (>60 ml/min/1.73 sqM) Est GFR (MDRD) Non-Af >60 (>60 ml/min/1.73 sqM) Glucose 136 H (74-99) mg/dL Calcium 9.3 (8.4-10.2) mg/dL Phosphorus 3.8 (2.5-4.5) mg/dL Magnesium 1.8 (1.6-2.3) mg/dL Total Bilirubin 0.4 (0.2-1.3) mg/dL AST 32 (17-59) U/L ALT 39 (21-72) U/L Alkaline Phosphatase 58 (38-126) U/L Total Creatine Kinase 164 (55-170) U/L CK-MB (CK-2) 2.8 H* (0.0-2.4) ng/mL CK-MB (CK-2) Rel Index 1.7 Troponin I <0.012 (0.000-0.034) ng/mL Total Protein 7.0 (6.3-8.2) g/dL Albumin 4.3 (3.5-5.0) g/dL Urine Color Urine Appearance (Clear) Urine pH (5.0-8.0) Ur Specific Strong (1.001-1.035) Urine Protein (Negative) Urine Glucose (UA) (Negative) Urine Ketones (Negative) Urine Blood (Negative) Urine Nitrite (Negative) Urine Bilirubin (Negative) Urine Urobilinogen (<2.0) mg/dL Ur Leukocyte Esterase (Negative) Urine WBC (0-5) /hpf Urine Bacteria (None) /hpf Urine Mucus (None) /hpf 12/21/16 12/21/16 Range/Units 15:41 17:30 WBC (3.8-10.6) k/uL RBC (4.30-5.90) m/uL Hgb (13.0-17.5) gm/dL Hct (39.0-53.0) % MCV (80.0-100.0) fL MCH (25.0-35.0) pg MCHC (31.0-37.0) g/dL RDW (11.5-15.5) % Plt Count (150-450) k/uL Neutrophils % % Lymphocytes % % Monocytes % % Eosinophils % % Basophils % % Neutrophils # (1.3-7.7) k/uL Lymphocytes # (1.0-4.8) k/uL Monocytes # (0-1.0) k/uL Eosinophils # (0-0.7) k/uL Basophils # (0-0.2) k/uL PT 12.3 H (9.0-12.0) sec INR 1.2 H (<1.2) APTT 25.9 (22.0-30.0) sec Sodium (137-145) mmol/L Potassium (3.5-5.1) mmol/L Chloride (98-107) mmol/L Carbon Dioxide (22-30) mmol/L Anion Gap mmol/L BUN (9-20) mg/dL Creatinine (0.66-1.25) mg/dL Est GFR (MDRD) Af Amer (>60 ml/min/1.73 sqM) Est GFR (MDRD) Non-Af (>60 ml/min/1.73 sqM) Glucose (74-99) mg/dL Calcium (8.4-10.2) mg/dL Phosphorus (2.5-4.5) mg/dL Magnesium (1.6-2.3) mg/dL Total Bilirubin (0.2-1.3) mg/dL AST (17-59) U/L ALT (21-72) U/L Alkaline Phosphatase (38-126) U/L Total Creatine Kinase (55-170) U/L CK-MB (CK-2) (0.0-2.4) ng/mL CK-MB (CK-2) Rel Index Troponin I (0.000-0.034) ng/mL Total Protein (6.3-8.2) g/dL Albumin (3.5-5.0) g/dL Urine Color Yellow Urine Appearance Clear (Clear) Urine pH 6.0 (5.0-8.0) Ur Specific Strong 1.012 (1.001-1.035) Urine Protein Trace H (Negative) Urine Glucose (UA) Negative (Negative) Urine Ketones Negative (Negative) Urine Blood Negative (Negative) Urine Nitrite Positive (Negative) Urine Bilirubin Negative (Negative) Urine Urobilinogen <2.0 (<2.0) mg/dL Ur Leukocyte Esterase Large H (Negative) Urine WBC 15 H (0-5) /hpf Urine Bacteria Moderate H (None) /hpf Urine Mucus Rare H (None) /hpf - Radiology Data Radiology results: report reviewed (CT brain and chest x-ray are negative), image reviewed Disposition Clinical Impression: Altered mental status, UTI (urinary tract infection) Disposition: ADMITTED IP TO THIS HOSP Condition: Good Referrals: Arash Gutierrez DO [Primary Care Provider] - 1-2 days
[2016-12-21] MEDS ORDERED: SODIUM CHLORIDE 0.9% 1,000 ML IV STA ×2 (15:56)
[2016-12-21 16:30] LABS: Basophils % (A) 0 %; CH 30.2; CHCM 35.3; Eosinophils % (A) 0 %; HCT 37.1 % (39.0-53.0); HDW 3.21; HGB 13.2 gm/dL (13.0-17.5); Luc # (Auto) 0.14; Luc % (Auto) 2; Lymphocytes # (A) 1.2 k/uL (1.0-4.8); Lymphocytes % (A) 15 %; MCH 30.7 pg (25.0-35.0); MCHC 35.7 g/dL (31.0-37.0); Mean Platelet Volume 7.9; Monocytes # (A) 0.3 k/uL (0-1.0); Monocytes % (A) 4 %; Neutrophils # (A) 6.2 k/uL (1.3-7.7); Neutrophils % (A) 79 %; RBC 4.31 m/uL (4.30-5.90); RDW 14.4 % (11.5-15.5); WBC 7.8 k/uL (3.8-10.6); WBC (Perox) 8.03
[2016-12-21 16:41] LABS: INR 1.2 (<1.2); Partial Thromboplastin Time 25.9 sec (22.0-30.0); Prothrombin Time 12.3 sec (9.0-12.0)
[2016-12-21 16:42] LABS: ALT 39 U/L (21-72); AST 32 U/L (17-59); Alkaline Phosphatase 58 U/L (38-126); Anion Gap 12 mmol/L; Blood Urea Nitrogen 25 mg/dL (9-20); Calcium 9.3 mg/dL (8.4-10.2); Carbon Dioxide 25 mmol/L (22-30); Chloride 102 mmol/L (98-107); Glucose 136 mg/dL (74-99); Magnesium 1.8 mg/dL (1.6-2.3); Non-African American GFR(MDRD) >60 (>60 ml/min/1.73 sqM); Phosphorous 3.8 mg/dL (2.5-4.5); Potassium 4.6 mmol/L (3.5-5.1); Sodium 139 mmol/L (137-145); Total Bilirubin 0.4 mg/dL (0.2-1.3)
--- NOTE | 2016-12-21 16:42 | XR ---
EXAMINATION TYPE: XR chest 2V DATE OF EXAM: 12/21/2016 COMPARISON: Chest x-ray November 25, 2016 HISTORY: Weakness and difficulty in breathing. TECHNIQUE: Frontal and lateral views of the chest are obtained. FINDINGS: There is poor inspiration on current study. There is cardiomegaly with suggestion of mild central vascular congestion. No large pleural effusion or pneumothorax is present bilaterally. There is eventration of right hemidiaphragm redemonstrated. The osseous structures are intact. IMPRESSION: Poor inspiration present. There is mild cardiomegaly with mild central vascular congesti on, correlate for CHF exacerbation versus product of poor inspiration.
[2016-12-21 16:52] LABS: Creatine Kinase 164 U/L (55-170)
[2016-12-21 17:03] LABS: Troponin I <0.012 ng/mL (0.000-0.034)
[2016-12-21 17:15] LABS: Creatine Kinase MB 2.8 ng/mL (0.0-2.4)
[2016-12-21 18:03] LABS: Appearance,Urine Clear (Clear); Bacteria,Urine Moderate /hpf; Bilirubin,Urine Negative (Negative); Glucose,Urine (UA) Negative (Negative); Ketones,Urine Negative (Negative); Leukocyte Esterase,Urine Large (Negative); Mucus,Urine Rare /hpf; Nitrite,Urine Positive (Negative); Particle Count 62133; Protein,Urine Trace (Negative); Specific Gravity,Urine 1.012 (1.001-1.035); UA Billing (MACRO vs. MICRO) MICRO; Urobilinogen,Urine <2.0 mg/dL (<2.0); WBC,Urine 15 /hpf (0-5)
--- NOTE | 2016-12-21 18:16 | CT ---
EXAMINATION TYPE: CT brain wo con DATE OF EXAM: 12/21/2016 HISTORY: Patient poor historian. Patient is having muscle spasms per patient. Pain or headache per or aaron. CT DLP: 1126 mGycm. Automated Exposure Control for Dose Reduction was Utilized. TECHNIQUE: CT scan of the head is performed without contrast. COMPARISON: CT brain November 25, 2016 FINDINGS: There is no acute intracranial hemorrhage or midline shift identified. There is diffuse v entricular and sulcal prominence consistent with diffuse age-related cerebral atrophy. Patchy density right external auditory canals felt to reflect cerumen. The globes are intact and the visualized si nuses are clear. IMPRESSION: No acute intracranial hemorrhage or midline shift. There is mild to moderate diffuse ag e-related cerebral atrophy redemonstrated. No significant change from prior study is seen.
[2016-12-21 20:13] VITALS: BMI 36.3
[2016-12-21 20:58] LABS: Glucose,Whole Blood 169 mg/dL (75-99)
[2016-12-21 23:07] LABS: Glucose,Whole Blood 192 mg/dL (75-99)
[2016-12-21] MEDS: PREGABALIN 100 MG CAP PO SCH (23:31)
[2016-12-21] MEDS: INSULIN GLARGINE 100 UNIT/ML 10 ML VIAL SQ SCH (23:32)
[2016-12-22] MEDS: carBAMazepine 200 MG TAB PO SCH ×3 (06:24→22:00)
[2016-12-22 07:18] LABS: Glucose,Whole Blood 146 mg/dL (75-99)
[2016-12-22] MEDS: BACLOFEN 10 MG TAB PO SCH ×3 (08:06→22:02)
[2016-12-22] MEDS: INSULIN LISPRO (humaLOG) 300 UNIT/3 ML VIAL SQ SCH ×7 (08:06→22:15)
[2016-12-22] MEDS: CARVEDILOL 6.25 MG TAB PO SCH ×2 (08:07→22:00)
[2016-12-22] MEDS: clonazePAM 0.5 MG TAB PO SCH ×3 (08:08→22:01)
[2016-12-22] MEDS: FINASTERIDE 5 MG TAB PO SCH (08:09)
[2016-12-22] MEDS: metFORMIN 500 MG TAB PO SCH ×2 (08:09→22:01)
[2016-12-22] MEDS: ENOXAPARIN 40 MG/0.4 ML SYRINGE SQ SCH (08:09)
[2016-12-22] MEDS: METHADONE 5 MG TAB PO SCH ×3 (08:10→22:05)
[2016-12-22] MEDS: PREGABALIN 100 MG CAP PO SCH ×3 (08:11→22:22)
--- NOTE | 2016-12-22 10:24 | HP ---
HISTORY AND PHYSICAL DATE OF SERVICE: 12/21/2016 CHIEF COMPLAINT: Shaking chills and change in mental status. HISTORY OF PRESENT ILLNESS: This 66-year-old gentleman with a past medical history of multiple medical problems, including CVA, TIA, hypertension, history of diabetic peripheral neuropathy being followed by Dr. Gutierrez in the [facility] in [place] was admitted with shaking chills and also change in mental status. Patient was found to have UTI and the patient admitted for further evaluation and treatment. Patient also takes multiple pain medications. There is no history of headache, loss of consciousness or seizures at this time. Patient is slightly drowsy at this time. PAST MEDICAL HISTORY: History of diabetic peripheral neuropathy, history of GERD, hypertension, history of myocardial infarction. MEDICATIONS PRIOR TO ADMISSION: Include home medications: 1. Lopid 600 mg p.o. b.i.d. 2. Metformin 1000 mg p.o. b.i.d. 3. Klonopin 0.5 mg b.i.d. 5. Geodon 20 mg p.o. tid. 6. Flomax 0.2 q.h.s. 7. Zoloft 200 mg q.a.m. 8. Colace 2 tablets p.o. b.i.d. 9. Zantac 300 mg p.o. q.h.s. 10.Lyrica 100 mg p.o. t.i.d. 11.Pravachol 40 mg q.h.s. 12.Protonix 40 mg p.o. b.i.d. 13.[place]-3 fatty acid 2 capsules b.i.d. 14.Multivitamins 1 p.o. daily. 15.Methadone 5 mg p.o. b.i.d. and 7.5 mg p.o. q.h.s. 16.Claritin 10 mg daily p.r.n. 17.Synthroid 50 mcg p.o. daily. 18.NovoLog scale and NovoLog 30 units subcu a.c. t.i.d. 19.Lantus 90 units subcu q.h.s. 20.Proscar 5 mg p.o. daily. 21.Drisdol 100,000 p.o. Friday. 22.Vitamin B12 1000 mg monthly. 23.Plavix 75 mg p.o. daily. 24.Coreg 6.25 mg p.o. b.i.d. 25.Lioresal 20 mg q.h.s. and 10 mg p.o. b.i.d. 26.Artificial Tears 1 drop both eyes t.i.d. 27.Zyloprim 100 mg p.o. b.i.d. ALLERGIES: LODINE, OXYBUTYNIN. FAMILY HISTORY: History of cancer in the family. SOCIAL HISTORY: No history of smoking, no history of alcohol intake. REVIEW OF SYSTEMS: Could not be taken because of the change in mental status. PHYSICAL EXAM: Patient is alert, oriented x2. Pulse is 63, blood pressure 129/76, respirations 16, temperature is 98.3, pulse ox 97% on 2 L. HEENT: Conjunctivae normal. Oral mucosa moist. NECK: No jugular venous distention. No carotid bruit. No lymph node enlargement. CARDIOVASCULAR: S1, S2 muffled. No S3 or S4. Ejection systolic murmur present. RESPIRATORY: Breath sounds diminished at the bases. A few scattered rhonchi and crackles. ABDOMEN: Soft, obese, nontender, no mass palpable. No guarding, no rigidity. LEGS: Minimal edema, diffusely weak and bilateral foot drop also present. NERVOUS SYSTEM: Higher function as mentioned. Moves all four limbs but diffusely weak in the lower limbs. Sensory abnormalities also pres net. SKIN: No rash, ulcer or bleeding. LYMPHATICS: No lymphadenopathy in the neck, axillae or groin. JOINTS: No active deforming arthropathy. LAB INVESTIGATIONS: At this time shows WBC 7.8, hemoglobin 13.2, INR is 1.2. CK-MB is 2.8. UA noted. ASSESSMENT: 1. Urinary tract infection with possible sepsis. 2. Change in mental status secondary to sepsis. 3. Diabetic peripheral neuropathy. 4. Diabetes mellitus type 2. 5. History of CVA TIA. 6. History of hypertension. 7. History of gout. 8. History degenerative joint disease. 9. Chronic pain syndrome. 10.Bipolar, depression, posttraumatic stress disorder. RECOMMENDATIONS AND DISCUSSION: I recommend to continue current medication, continue with monitoring and symptomatic treatment. Otherwise broad-spectrum IV antibiotics. Repeat cultures. DVT prophylaxis. We will continue the rest of the medications. Prognosis guarded because of multiple complex medical issues. Further recommendations to follow. A copy of dictation forwarded to the [facility], Dr. Gutierrez and guarded prognosis. Further recommendations to follow. MMODL / IJN: [id number] / MTDVielka
[2016-12-22 12:03] LABS: Glucose,Whole Blood 205 mg/dL (75-99)
[2016-12-22] MEDS: ZIPRASIDONE 20 MG CAP PO SCH ×3 (12:23→17:43)
[2016-12-22 14:17] LABS: Hemoglobin A1C 7.5 % (4.2-6.1)
[2016-12-22 16:49] LABS: Glucose,Whole Blood 74 mg/dL (75-99)
[2016-12-22 16:49] LABS: Glucose,Whole Blood 69 mg/dL (75-99)
[2016-12-22 20:49] LABS: Glucose,Whole Blood 181 mg/dL (75-99)
[2016-12-22] MEDS: INSULIN GLARGINE 100 UNIT/ML 10 ML VIAL SQ SCH (22:01)
[2016-12-22] MEDS: TAMSULOSIN 0.4 MG CAP.ER.24H PO SCH (22:02)
[2016-12-23 01:15] LABS: Glucose,Whole Blood 186 mg/dL (75-99)
[2016-12-23] MEDS: ACETAMINOPHEN TAB 325 MG TAB PO PRN (01:45)
[2016-12-23 07:17] LABS: Glucose,Whole Blood 115 mg/dL (75-99)
[2016-12-23] MEDS: INSULIN LISPRO (humaLOG) 300 UNIT/3 ML VIAL SQ SCH ×7 (07:21→21:39)
[2016-12-23 08:11] LABS: Basophils % (A) 0 %; CHCM 35.3; Eosinophils # (A) 0.1 k/uL (0-0.7); Eosinophils % (A) 2 %; HCT 36.8 % (39.0-53.0); HDW 3.13; HGB 12.3 gm/dL (13.0-17.5); Luc # (Auto) 0.12; Luc % (Auto) 2; Lymphocytes # (A) 1.6 k/uL (1.0-4.8); Lymphocytes % (A) 27 %; MCH 29.5 pg (25.0-35.0); MCHC 33.4 g/dL (31.0-37.0); MCV 88.2 fL (80.0-100.0); Mean Platelet Volume 8.4; Monocytes # (A) 0.3 k/uL (0-1.0); Monocytes % (A) 5 %; Neutrophils # (A) 3.8 k/uL (1.3-7.7); Neutrophils % (A) 64 %; RBC 4.17 m/uL (4.30-5.90); RDW 14.9 % (11.5-15.5); WBC 5.9 k/uL (3.8-10.6); WBC (Perox) 6.19
[2016-12-23] MEDS: ENOXAPARIN 40 MG/0.4 ML SYRINGE SQ SCH (08:13)
[2016-12-23] MEDS: PREGABALIN 100 MG CAP PO SCH ×3 (08:13→21:53)
[2016-12-23] MEDS: BACLOFEN 10 MG TAB PO SCH ×3 (08:13→21:40)
[2016-12-23] MEDS: clonazePAM 0.5 MG TAB PO SCH ×3 (08:13→21:53)
[2016-12-23] MEDS: metFORMIN 500 MG TAB PO SCH ×2 (08:13→21:40)
[2016-12-23] MEDS: METHADONE 5 MG TAB PO SCH ×3 (08:13→22:14)
[2016-12-23] MEDS: CARVEDILOL 6.25 MG TAB PO SCH ×2 (08:13→21:40)
[2016-12-23] MEDS: FINASTERIDE 5 MG TAB PO SCH (08:13)
[2016-12-23] MEDS: carBAMazepine 200 MG TAB PO SCH ×3 (08:14→21:40)
[2016-12-23 08:29] LABS: Anion Gap 11 mmol/L; Blood Urea Nitrogen 18 mg/dL (9-20); Calcium 9.2 mg/dL (8.4-10.2); Carbon Dioxide 30 mmol/L (22-30); Chloride 104 mmol/L (98-107); Glucose 105 mg/dL (74-99); Non-African American GFR(MDRD) 57 (>60 ml/min/1.73 sqM); Potassium 4.3 mmol/L (3.5-5.1); Sodium 145 mmol/L (137-145)
--- NOTE | 2016-12-23 10:37 | PN ---
PROGRESS NOTE DATE OF SERVICE: 12/22/2016 This 66-year-old gentleman admitted with generalized weakness and tiredness and also possibly had a UTI. The patient was started on antibiotics. The patient has improved significantly. Patient is slightly dysarthric still. CT scan of the brain was also done that showed no acute intracranial abnormality except mild to moderate diffuse age- related changes. PAST MEDICAL HISTORY: Reviewed. REVIEW OF SYSTEMS: CARDIOVASCULAR: No angina. RESPIRATORY: As mentioned earlier. GI: As mentioned earlier. : No dysuria. NERVOUS SYSTEM: As mentioned earlier. CURRENT MEDICATIONS: Current medications are reviewed include: 1. Lioresal 10 mg tid. 3. Coreg 6.25 mg daily. 4. Rocephin 1 g IV daily. 5. Lovenox 40 mg daily. 6. Lantus 70 units subcu daily. 7. Humalog scale. 8. Glucophage 1000 mg b.i.d. 9. Methadone 5 mg p.o. b.i.d. 11.Flomax 0.8 daily. 12.Geodon 20 mg p.o. t.i.d. PHYSICAL EXAMINATION: The patient is alert, oriented x2. Mildly dysarthric. Pulse 58, blood pressure 118/66, respirations 16, temperature 98.4, pulse of 97% on 2 L. HEENT: Conjunctivae normal. NECK: No jugular venous distention. CARDIOVASCULAR: S1, S2. RESPIRATORY: Breath sounds diminished at the bases. Bilateral scattered rhonchi and crackles. ABDOMEN: Soft, nontender. LEGS: No edema. No cyanosis. NERVOUS SYSTEM: Diffusely weak. Sensory abnormalities also present. LABS: Reviewed. Urine culture is pending. is 9. ASSESSMENT: 1. Urinary tract infection with sepsis present on admission. 2. Change in mental status acute metabolic encephalopathy secondary to sepsis. 3. Diabetic peripheral neuropathy. 4. Diabetes mellitus type 2. 5. Cerebrovascular accident, transient ischemic attack. 6. Hypertension. 7. History of gout. 8. History of degenerative joint disease. 9. History of chronic pain syndrome. 10.Bipolar, depression, posttraumatic stress disorder. RECOMMENDATIONS AND DISCUSSION: I recommend to continue current medications and continue symptomatic treatment. In this 66-year-old gentleman who presented with multiple complex medical issues, the patient was given antibiotics and patient is making some improvement. Cultures are negative so far. There is no evidence of stroke at this time. Otherwise I will recommend to continue the current medications and I encouraged increase ambulation with PT, OT evaluation. Possible walker. The patient was recently in rehab according to family. Patient also had multiple evaluations and assessments scheduled at the [facility] in [place] as well. We will monitor blood sugars closely. Otherwise follow the cultures as mentioned earlier. Overall prognosis guarded because of multiple complex medical issues. Discussed with the patient and at the bedside who understand and in agreement. Further recommendation to follow. MMODL / IJN: [id number] / ADDIE
[2016-12-23 11:45] LABS: Glucose,Whole Blood 185 mg/dL (75-99)
[2016-12-23] MEDS: ZIPRASIDONE 20 MG CAP PO SCH ×3 (11:45→15:46)
[2016-12-23 11:59] LABS: Glucose,Whole Blood 200 mg/dL (75-99)
[2016-12-23 17:26] LABS: Glucose,Whole Blood 139 mg/dL (75-99)
[2016-12-23 20:34] LABS: Glucose,Whole Blood 94 mg/dL (75-99)
[2016-12-23] MEDS: TAMSULOSIN 0.4 MG CAP.ER.24H PO SCH (21:40)
[2016-12-23] MEDS: INSULIN GLARGINE 100 UNIT/ML 10 ML VIAL SQ SCH (22:01)
[2016-12-24 04:43] LABS: Glucose,Whole Blood 154 mg/dL (75-99)
[2016-12-24 07:33] LABS: Glucose,Whole Blood 158 mg/dL (75-99)
[2016-12-24] MEDS: INSULIN LISPRO (humaLOG) 300 UNIT/3 ML VIAL SQ SCH ×7 (08:10→20:54)
[2016-12-24] MEDS: carBAMazepine 200 MG TAB PO SCH ×3 (08:10→20:54)
--- NOTE | 2016-12-24 08:20 | PN ---
PROGRESS NOTE DATE OF SERVICE: 12/23/2016 This 66-year-old gentleman admitted with complaints of weakness, also possibility of urinary tract infection and sepsis also. No fever. No cough. On exam, alert and oriented x3. Pulse 58, blood pressure 130/72, respiration 18, temperature 98.2, pulse ox 90% on 2 L. HEENT: Conjunctivae normal. NECK: No jugular venous distention. CARDIOVASCULAR: S1, S2 muffled. RESPIRATORY: Breath sounds diminished in the bases. A few scattered rhonchi. No crackles. ABDOMEN: Soft, nontender. No mass palpable. LEGS: No edema, no swelling. NERVOUS SYSTEM: Diffusely weak especially on the right leg. SKIN: No rash, ulcer or bleeding. LABS: WBC 5.8, hemoglobin is 12.3, platelets 116. ASSESSMENT: 1. Urinary tract infection with sepsis present on admission. 2. Change in mental status, acute metabolic encephalopathy secondary to sepsis. 3. Diabetic peripheral neuropathy. 4. Gait dysfunction. 5. Diabetes mellitus type 2. 6. History of transient ischemic attack, cerebrovascular accident. 7. Hypertension. 8. Gout. 9. History of degenerative joint disease. 10.History of chronic pain. 11.Anxiety, depression, bipolar, posttraumatic stress disorder. RECOMMENDATIONS AND DISCUSSION: In this 66-year-old gentleman who presented with multiple complex medical issues, we will monitor the patient closely. Continue IV antibiotics. Increase ambulation. Guarded prognosis because of multiple complex medical issues. Further recommendations to follow. MMODL / IJN: [id number] /
[2016-12-24] MEDS: metFORMIN 500 MG TAB PO SCH ×2 (08:38→20:53)
[2016-12-24] MEDS: CARVEDILOL 6.25 MG TAB PO SCH ×2 (08:39→20:53)
[2016-12-24] MEDS: BACLOFEN 10 MG TAB PO SCH ×3 (08:39→22:06)
[2016-12-24] MEDS: clonazePAM 0.5 MG TAB PO SCH ×3 (08:39→22:06)
[2016-12-24 08:40] LABS: Basophils % (A) 0 %; CH 31.1; CHCM 35.2; Eosinophils # (A) 0.1 k/uL (0-0.7); Eosinophils % (A) 2 %; HDW 3.13; HGB 12.7 gm/dL (13.0-17.5); Luc # (Auto) 0.11; Luc % (Auto) 2; Lymphocytes # (A) 1.2 k/uL (1.0-4.8); Lymphocytes % (A) 18 %; MCH 29.6 pg (25.0-35.0); MCHC 33.4 g/dL (31.0-37.0); MCV 88.7 fL (80.0-100.0); Monocytes # (A) 0.3 k/uL (0-1.0); Monocytes % (A) 4 %; Neutrophils # (A) 4.7 k/uL (1.3-7.7); Neutrophils % (A) 74 %; RBC 4.29 m/uL (4.30-5.90); RDW 15.1 % (11.5-15.5); WBC 6.4 k/uL (3.8-10.6); WBC (Perox) 6.44
[2016-12-24] MEDS: ENOXAPARIN 40 MG/0.4 ML SYRINGE SQ SCH (08:40)
[2016-12-24] MEDS: FINASTERIDE 5 MG TAB PO SCH (08:40)
[2016-12-24] MEDS: METHADONE 5 MG TAB PO SCH ×2 (08:41→20:50)
[2016-12-24] MEDS: PREGABALIN 100 MG CAP PO SCH ×3 (08:42→22:06)
[2016-12-24 08:57] LABS: Anion Gap 10 mmol/L; Blood Urea Nitrogen 17 mg/dL (9-20); Calcium 9.1 mg/dL (8.4-10.2); Carbon Dioxide 27 mmol/L (22-30); Chloride 104 mmol/L (98-107); Glucose 208 mg/dL (74-99); Non-African American GFR(MDRD) >60 (>60 ml/min/1.73 sqM); Potassium 5.2 mmol/L (3.5-5.1); Sodium 141 mmol/L (137-145)
[2016-12-24] MEDS: ZIPRASIDONE 20 MG CAP PO SCH ×3 (11:14→16:34)
[2016-12-24 12:14] LABS: Glucose,Whole Blood 112 mg/dL (75-99)
[2016-12-24 13:54] LABS: Glucose,Whole Blood 114 mg/dL (75-99)
--- NOTE | 2016-12-24 17:40 | P.PN ---
Subjective Date of service 12/24/2016. Progress note being dictated for Dr. Das. Interval history: This a 66-year-old gentleman admitted with UTI, sepsis, acute metabolic encephalopathy and multiple other medical issues. Sensorium significantly improved. Maintained on Rocephin. Remains afebrile, normal WBC without cough. Mildly hyperkalemic, potassium 5.2. Denies chest pain, palpitations or increased shortness of breath. Currently being evaluated by physical therapy. Objective - Vital Signs Vital signs: Vital Signs Temp 98.5 F 12/24/16 14:57 Pulse 56 L 12/24/16 14:57 Resp 18 12/24/16 14:57 BP 127/61 12/24/16 14:57 Pulse Ox 94 L 12/24/16 14:57 Intake & Output 12/23/16 12/24/16 12/24/16 18:59 06:59 18:59 Intake Total 240 200 Balance 240 200 Weight 113.5 kg 113.5 kg Intake: Oral 240 200 Other: Voiding Method Bedside Commode Bedside Commode Incontinent Incontinent # Voids 1 4 4 # Bowel Movements 0 0 0 - Exam PHYSICAL EXAM: VITAL SIGNS: As above GENERAL: Sitting up in bed, no acute distress HEENT: Conjunctivae normal. eyes normal. Oral mucosa normal. NECK: No JVD. No thyroid enlargement. No LNs CARDIOVASCULAR: S1, S2 muffled. No murmur RESPIRATION: Breath sounds diminished in the bases. Occasional scattered rhonchi, no crackles. No bronchial breathing. ABDOMEN: Soft, nontender . No guarding. no masses palpable. No ascites, No hepatosplenomegaly.Bowel sounds heard. LEGS: No edema. no swelling PSYCHIATRY: Alert and oriented 3, mood and affect normal. NERVOUS SYSTEM: Cranial N 2-12 grossly normal. Moves all 4 limbs. Diffuse weakness more so on the right leg, No focal deficits. No sensory deficit. Skin: no ulcer no rash Joints: No active swelling. No inflammation. Lymphatic system. No LN neck axilla or groin. - Labs CBC & Chem 7: 12/24/16 08:06 12/24/16 08:06 Labs: Abnormal Lab Results - Last 24 Hours (Table) 12/24/16 12/24/16 12/24/16 Range/Units 04:41 07:28 08:06 RBC 4.29 L (4.30-5.90) m/uL Hgb 12.7 L (13.0-17.5) gm/dL Hct 38.0 L (39.0-53.0) % Plt Count 126 L (150-450) k/uL Potassium (3.5-5.1) mmol/L Glucose (74-99) mg/dL POC Glucose (mg/dL) 154 H 158 H (75-99) mg/dL 12/24/16 12/24/16 12/24/16 Range/Units 08:06 11:57 13:53 RBC (4.30-5.90) m/uL Hgb (13.0-17.5) gm/dL Hct (39.0-53.0) % Plt Count (150-450) k/uL Potassium 5.2 H (3.5-5.1) mmol/L Glucose 208 H (74-99) mg/dL POC Glucose (mg/dL) 112 H 114 H (75-99) mg/dL Microbiology - Last 24 Hours (Table) 12/21/16 17:30 Urine Culture - Final Urine,Catheterized Escherichia coli Assessment and Plan Plan: 1. Acute UTI with sepsis present on admission. 2. [ Change in mental status, Acute metabolic encephalopathy secondary to sepsis , improving]. 3. [ Diabetic peripheral neuropathy]. 4. [ Gait dysfunction]. 5. [ Diabetes mellitus type 2]. Plan: Continue on current medication regime , IV antibiotics, monitoring and symptomatic treatment. PT/OT. Low potassium diet. Close monitoring of electrolytes with repeat labs ordered for a.m. Discharge planning in progress for tomorrow to either subacute rehab or home pending PTs recommendations. Increase ambulation as tolerated with assist. Plan of care discussed at bedside with patient and significant other, in agreement with. Further recommendations to follow. The impression and plan of care has been dictated as directed. : I performed a H&P examination of this patient and discussed the same with the dictator. I agree with the dictator's note. Any additional findings/opinions/ etc. will be noted.
[2016-12-24 17:42] LABS: Glucose,Whole Blood 172 mg/dL (75-99)
[2016-12-24 20:39] LABS: Glucose,Whole Blood 184 mg/dL (75-99)
[2016-12-24] MEDS: TAMSULOSIN 0.4 MG CAP.ER.24H PO SCH (20:53)
[2016-12-24] MEDS: ACETAMINOPHEN TAB 325 MG TAB PO PRN (20:54)
[2016-12-24] MEDS: INSULIN GLARGINE 100 UNIT/ML 10 ML VIAL SQ SCH (20:56)
[2016-12-25 00:15] VITALS: RESP 16
[2016-12-25] MEDS: carBAMazepine 200 MG TAB PO SCH ×2 (06:27→11:33)
[2016-12-25 07:26] LABS: Glucose,Whole Blood 158 mg/dL (75-99)
[2016-12-25] MEDS: INSULIN LISPRO (humaLOG) 300 UNIT/3 ML VIAL SQ SCH ×4 (08:18→13:15)
[2016-12-25] MEDS: BACLOFEN 10 MG TAB PO SCH (08:18)
[2016-12-25] MEDS: PREGABALIN 100 MG CAP PO SCH (08:18)
[2016-12-25] MEDS: metFORMIN 500 MG TAB PO SCH (08:19)
[2016-12-25] MEDS: FINASTERIDE 5 MG TAB PO SCH (08:19)
[2016-12-25] MEDS: clonazePAM 0.5 MG TAB PO SCH (08:19)
[2016-12-25] MEDS: ENOXAPARIN 40 MG/0.4 ML SYRINGE SQ SCH (08:19)
[2016-12-25] MEDS: CARVEDILOL 6.25 MG TAB PO SCH (08:20)
[2016-12-25] MEDS ORDERED: METHADONE 5 MG TAB PO SCH (09:00)
[2016-12-25 09:17] VITALS: PULSE 64
[2016-12-25 09:24] LABS: Anion Gap 11 mmol/L; Blood Urea Nitrogen 19 mg/dL (9-20); Calcium 9.6 mg/dL (8.4-10.2); Carbon Dioxide 29 mmol/L (22-30); Chloride 102 mmol/L (98-107); Glucose 188 mg/dL (74-99); Non-African American GFR(MDRD) >60 (>60 ml/min/1.73 sqM); Potassium 5.1 mmol/L (3.5-5.1); Sodium 142 mmol/L (137-145)
[2016-12-25 10:18] VITALS: BP 154/76; TEMP 97.5
[2016-12-25 10:23] LABS: Basophils % (A) 0 %; CH 30.1; CHCM 34.2; Eosinophils # (A) 0.1 k/uL (0-0.7); Eosinophils % (A) 1 %; HCT 37.3 % (39.0-53.0); HDW 3.03; HGB 12.9 gm/dL (13.0-17.5); Luc % (Auto) 2; Lymphocytes % (A) 18 %; MCH 30.5 pg (25.0-35.0); MCHC 34.6 g/dL (31.0-37.0); MCV 88.3 fL (80.0-100.0); Mean Platelet Volume 8.2; Monocytes # (A) 0.2 k/uL (0-1.0); Monocytes % (A) 4 %; Neutrophils # (A) 4.3 k/uL (1.3-7.7); Neutrophils % (A) 75 %; RBC 4.23 m/uL (4.30-5.90); RDW 14.2 % (11.5-15.5); WBC 5.8 k/uL (3.8-10.6); WBC (Perox) 5.79
[2016-12-25] MEDS: ZIPRASIDONE 20 MG CAP PO SCH ×2 (11:33→13:56)
[2016-12-25 12:23] LABS: Glucose,Whole Blood 61 mg/dL (75-99)
[2016-12-25 13:05] LABS: Glucose,Whole Blood 118 mg/dL (75-99)
--- NOTE | 2016-12-25 15:42 | P.DS ---
Providers Date of admission: 12/21/16 18:57 Attending physician: Kassie Das [facility] care physician: [facility] Course: This 66-year-old gentleman with a past medical history multiple medical problems including diabetes mellitus, diabetic peripheral neuropathy, gait dysfunction being [facility] was recently admitted to re[facility]. Patient finished rehab patient went home but subsequently had profound weakness of sudden onset continue mental status and confusion. Patient was taken to [facility] patient was found to have features of UTI with sepsis. Treated with IV antibiotics. Patient had E. coli growing from the culture.. Patient improved significantly with IV antibiotics. White count is also elevated between. Patient required full admit more than 2 nights for evaluation treatment of the above-mentioned problems. On exam vitals stable. Cardio S1 and S2 normal. Respirator system few crackles. Abdomen soft nontender. Nervous system unchanged. Patient improved significantly. PTOT evaluated this patient. The patient and will be able to manage at home hopefully. Final diagnosis 1. Acute UTI with sepsis present on admission. Due to E. coli 2. Change in mental status acute metabolic considerably secondary to sepsis. Improved. 3. Diabetic peripheral neuropathy. 4. Gait dysfunction 5. Diabetes was type II Patient Condition at Discharge: Good Plan - Discharge Summary New Discharge Prescriptions: New Baclofen [Lioresal] 10 mg PO TID tab Cefuroxime Axetil [Ceftin] 500 mg PO BID #10 tab Continue Levothyroxine Sodium [Synthroid] 50 mcg PO DAILY carBAMazepine [TEGretol] 400 mg PO BID@0700,2100 Pregabalin [Lyrica] 100 mg PO TID Finasteride [Proscar] 5 mg PO DAILY Ziprasidone [Geodon] 20 mg PO TID@1100,1400,1600 Sertraline [Zoloft] 200 mg PO QAM Allopurinol [Zyloprim] 100 mg PO BID Insulin Aspart [NovoLOG] 32 units SQ AC-TID Ergocalciferol [Vitamin D2 (DRISDOL)] 100,000 unit PO MO Tamsulosin [Flomax] 0.8 mg PO HS Pravastatin Sodium [Pravachol] 40 mg PO HS Loratadine [Claritin] 10 mg PO DAILY PRN PRN Reason: Allergy Symptoms [place]-3 Fatty Acids/Fish Oil [Fish Oil 1,000 mg Softgel] 2 cap PO BID carBAMazepine [TEGretol] 200 mg PO DAILY@1200 Cyanocobalamin [Vitamin B-12 Injection] 1,000 mcg SQ QMONTH Insulin Aspart [NovoLOG] See Protocol SQ PC-TID metFORMIN HCL 1,000 mg PO BID Clopidogrel Bisulfate [Plavix] 75 mg PO DAILY #20 tab Artificial Tears-Hypromellose [Artificial Tear Drops] 1 drops BOTH EYES TID PRN PRN Reason: Dry eyes Carvedilol [Coreg] 6.25 mg PO BID Pantoprazole Sodium [Protonix] 40 mg PO BID Sennosides/Docusate Sodium [Docusate Sodium-Senna Tablet] 2 tab PO BID clonazePAM [KlonoPIN] 0.5 mg PO TID #20 Methadone [Dolophine] 7.5 mg PO HS Methadone [Dolophine] 5 mg PO BID Multivitamins, Thera [Multivitamin (formulary)] 1 tab PO DAILY Gemfibrozil [Lopid] 600 mg PO BID Changed Insulin Glargine,Hum.rec.anlog [Lantus Solostar] 70 unit SQ HS #0 Discontinued Baclofen [Lioresal] 10 mg PO BID@0700,1500 Ranitidine HCl [Zantac] 300 mg PO HS Baclofen [Lioresal] 20 mg PO HS Discharge Medication List Allopurinol [Zyloprim] 100 mg PO BID 12/02/14 [History] Ergocalciferol [Vitamin D2 (DRISDOL)] 100,000 unit PO MO 12/02/14 [History] Finasteride [Proscar] 5 mg PO DAILY 12/02/14 [History] Insulin Aspart [NovoLOG] 32 units SQ AC-TID 12/02/14 [History] Levothyroxine Sodium [Synthroid] 50 mcg PO DAILY 12/02/14 [History] Loratadine [Claritin] 10 mg PO DAILY PRN 12/02/14 [History] [place]-3 Fatty Acids/Fish Oil [Fish Oil 1,000 mg Softgel] 2 cap PO BID 12/02/14 [ History] Pravastatin Sodium [Pravachol] 40 mg PO HS 12/02/14 [History] Pregabalin [Lyrica] 100 mg PO TID 12/02/14 [History] Sertraline [Zoloft] 200 mg PO QAM 12/02/14 [History] Tamsulosin [Flomax] 0.8 mg PO HS 12/02/14 [History] Ziprasidone [Geodon] 20 mg PO TID@1100,1400,1600 12/02/14 [History] carBAMazepine [TEGretol] 400 mg PO BID@0700,2100 12/02/14 [History] Cyanocobalamin [Vitamin B-12 Injection] 1,000 mcg SQ QMONTH 09/30/15 [History] Insulin Aspart [NovoLOG] See Protocol SQ PC-TID 09/30/15 [History] carBAMazepine [TEGretol] 200 mg PO DAILY@1200 09/30/15 [History] metFORMIN HCL 1,000 mg PO BID 09/30/15 [History] Clopidogrel Bisulfate [Plavix] 75 mg PO DAILY #20 tab 10/01/15 [Rx] Artificial Tears-Hypromellose [Artificial Tear Drops] 1 drops BOTH EYES TID PRN 11/25/16 [History] Carvedilol [Coreg] 6.25 mg PO BID 11/25/16 [History] Pantoprazole Sodium [Protonix] 40 mg PO BID 11/25/16 [History] Sennosides/Docusate Sodium [Docusate Sodium-Senna Tablet] 2 tab PO BID 11/25/16 [History] clonazePAM [KlonoPIN] 0.5 mg PO TID #20 12/02/16 [Rx] Gemfibrozil [Lopid] 600 mg PO BID 12/21/16 [History] Methadone [Dolophine] 5 mg PO BID 12/21/16 [History] Methadone [Dolophine] 7.5 mg PO HS 12/21/16 [History] Multivitamins, Thera [Multivitamin (formulary)] 1 tab PO DAILY 12/21/16 [History ] Baclofen [Lioresal] 10 mg PO TID tab 12/24/16 [Rx] Cefuroxime Axetil [Ceftin] 500 mg PO BID #10 tab 12/24/16 [Rx] Insulin Glargine,Hum.rec.anlog [Lantus Solostar] 70 unit SQ HS #0 12/24/16 [Rx] Follow up Appointment(s)/Referral(s): Arash Gutierrez DO [Primary Care Provider] - 01/02/17 9:00 am (Georgette Arauz NP ) Patient Instructions/Handouts: Urinary Tract Infection in Men (DC), Type 2 Diabetes in Adults (DC) Activity/Diet/Wound Care/Special Instructions: Diet: cardiac, consist. Carb., low potassium Blood sugars before meals and at bedtime and record. Activity: as tolerated cbc,bmp in 3 days Discharge Disposition: HOME SELF-CARE
== END 2016-12-25 14:20 | disposition home or self-care (01) ==
LOC: EC 15:40 → INTOOBSV 18:57 → 4MS4W 18:57
PROVIDERS: ADMIT Hospitalist; ATTEND Hospitalist
DX: A41.9 Sepsis, unspecified organism (principal); N39.0 Urinary tract infection, site not specified; G93.41 Metabolic encephalopathy; E11.42 Type 2 diabetes mellitus with diabetic polyneuropathy; R26.9 Unspecified abnormalities of gait and mobility; Z86.73 Personal history of transient ischemic attack (TIA), and cerebral infarction without residual deficits; K21.9 Gastro-esophageal reflux disease without esophagitis; I25.2 Old myocardial infarction; I10 Essential (primary) hypertension; G47.30 Sleep apnea, unspecified; E07.9 Disorder of thyroid, unspecified; N40.0 Benign prostatic hyperplasia without lower urinary tract symptoms; M10.9 Gout, unspecified; F43.10 Post-traumatic stress disorder, unspecified; M19.90 Unspecified osteoarthritis, unspecified site; G89.4 Chronic pain syndrome; R47.1 Dysarthria and anarthria; E87.5 Hyperkalemia; F31.9 Bipolar disorder, unspecified; Z99.89 Dependence on other enabling machines and devices; Z88.8 Allergy status to other drugs, medicaments and biological substances; Z88.6 Allergy status to analgesic agent; Z79.84 Long term (current) use of oral hypoglycemic drugs; Z79.02 Long term (current) use of antithrombotics/antiplatelets; Z79.4 Long term (current) use of insulin; Z79.899 Other long term (current) drug therapy; Z86.718 Personal history of other venous thrombosis and embolism; Z86.711 Personal history of pulmonary embolism; Z86.010 Personal history of colon polyps; Z80.9 Family history of malignant neoplasm, unspecified
CPT/HCPCS: 96361 ×2; 96365; 96366 ×3; 96372 ×4; 99285; 36415; 93005; 97110; 97161; 97165; 80156; 80053; 80048 ×3; 83036; 82550; 82553; 83735; 84100; 84484; 85025 ×4; 85610; 85730; 81001; 87086; 87077; 87186; 71020; 70450; G0378 ×5; S0138 ×4; J1650 ×4; J0696 ×5; S0109 ×4

== ENCOUNTER → 2017-05-02 | Outpatient (CLI) | payer OTHER ==
--- NOTE | 2017-05-02 15:05 | US ---
EXAMINATION TYPE: US kidneys/renal and bladder DATE OF EXAM: 05/02/2017 COMPARISON: NONE CLINICAL HISTORY: N39.0 Urinary tract infection, site not specified. Pt states recurrent UTI's EXAM MEASUREMENTS: Right Kidney: 11.7 x 6.4 x 6.4 cm Left Kidney: 11.7 x 6.3 x 6.0 cm Right Kidney: Multiple cysts, largest lateral/lower= 6.2 x 5.3 x 6.6 cm . Cortical medullary differe ntiation is maintained. Left Kidney: Multiple cysts, largest mid= 3.0 x 2.1 x 2.9 cm . Cortical medullary differentiation is maintained. Bladder: wnl Bilateral Jets seen: No There is no evidence for hydronephrosis at this point in time. No nephrolithiasis is seen. The urina ry bladder is anechoic. IMPRESSION: 1. No evidence of hydronephrosis or nephrolithiasis. 2. Bilateral simple appearing renal cysts.
== END | disposition home or self-care (01) ==
LOC: RADUSWWP 14:01
PROVIDERS: ATTEND Urology
DX: N28.1 Cyst of kidney, acquired (principal)
CPT/HCPCS: 76770

== ENCOUNTER 2017-07-18 06:48 | Day surgery (SDC) | payer OTHER ==
[2017-06-30 16:13] VITALS: BMI 37.0
[~2017-07-18 06:48] MED LIST: LACTATED RINGERS 1,000 ML IV SCH
[2017-07-18] MEDS ORDERED: LACTATED RINGERS 1,000 ML IV ONE (07:16)
[2017-07-18 07:33] LABS: Glucose,Whole Blood 200 mg/dL (75-99)
[2017-07-18 07:48] VITALS: TEMP 97.9
[2017-07-18] MEDS ORDERED: PROPOFOL 10 MG/ML 20 ML VIAL IV ONE (07:54)
--- NOTE | 2017-07-18 08:23 | P.PCN ---
Date of Procedure: 07/18/17 Procedure(s) Performed: BRIEF HISTORY: Patient is a 67-year-old pleasant white male, scheduled for an elective colonoscopy as a part of value should of prior history of colon polyps. Last colonoscopy was 2 years ago and was noted to have multiple colon polyps. PROCEDURE PERFORMED: Colonoscopy with snare polypectomy. PREOPERATIVE DIAGNOSIS: History of colon polyps. IV sedation per Anesthesia. PROCEDURE: After informed consent was obtained, the patient, was brought into the endoscopy unit. IV sedation was administered by Anesthesia under continuous monitoring. Digital rectal examination was normal. Initially the Olympus CF- 160 flexible video colonoscope was then inserted in the rectum, gradually advanced into the cecum without any difficulty. Careful examination was performed as the scope was gradually being withdrawn. Ileocecal valve and the appendiceal orifice were visualized and appeared normal. Prep was excellent. Mucosa of the cecum, appeared normal. In the ascending colon there were 3 polyps measuring between 5 mm to 1.5 cm status post polypectomy. In the hepatic flexure there were 2 polyps measuring 1 cm in size removed by snare polypectomy In the transverse colon there were 3 polyps measuring between 5 revealed a 1 cm size status post polypectomy. In the descending colon there were 3 polyps measuring between 7 mm to 1 cm in size status post polypectomy. There was a 1 cm polyp in the sigmoid colon removed by snare polypectomy. The rest of the ascending colon, transverse colon, descending colon, sigmoid colon, and rectum appeared normal. Retroflexion was performed in the rectum and no lesions were seen. The patient tolerated the procedure well. IMPRESSION: 3 polyps in the ascending colon measuring between 5 mm to 1.5 cm in size all of which were removed by snare polypectomy 2 polyps in the hepatic flexure measuring 1 cm in size status post polypectomy 3 polyps in the transverse colon measuring between 5 mm stone 1 cm in size status post polypectomy 3 polyps in the descending colon measuring between 7 mm to 1 segment in size status post snare polypectomy 1 cm sigmoid colon polyp status post polypectomy Small internal hemorrhoids RECOMMENDATIONS: Findings of this examination were discussed with the patient as well as his family. He was advised to follow with the biopsy results and he can have a repeat colonoscopy in 2-3 years.
[2017-07-18 08:29] LABS: Glucose,Whole Blood 175 mg/dL (75-99)
[2017-07-18 08:30] VITALS: RESP 18
[2017-07-18 08:43] VITALS: BP 154/70; PULSE 55
== END 2017-07-18 09:35 | disposition home or self-care (01) ==
LOC: ORWHC2ENDO 06:48
PROVIDERS: ATTEND Internal Medicine Gastroenterology
DX: Z12.11 Encounter for screening for malignant neoplasm of colon (principal); D12.2 Benign neoplasm of ascending colon; D12.3 Benign neoplasm of transverse colon; D12.4 Benign neoplasm of descending colon; D12.5 Benign neoplasm of sigmoid colon; K64.8 Other hemorrhoids; Z86.010 Personal history of colon polyps; I10 Essential (primary) hypertension; E78.5 Hyperlipidemia, unspecified; E11.21 Type 2 diabetes mellitus with diabetic nephropathy; I25.2 Old myocardial infarction; Z86.718 Personal history of other venous thrombosis and embolism; I69.898 Other sequelae of other cerebrovascular disease; Z86.711 Personal history of pulmonary embolism; G47.33 Obstructive sleep apnea (adult) (pediatric); Z99.89 Dependence on other enabling machines and devices; F39 Unspecified mood [affective] disorder; Z88.6 Allergy status to analgesic agent; Z88.8 Allergy status to other drugs, medicaments and biological substances
CPT/HCPCS: 88305; 45385; J2704

== ENCOUNTER → 2017-11-17 | Outpatient (CLI) | payer OTHER ==
--- NOTE | 2017-11-17 12:26 | XR ---
EXAMINATION TYPE: XR KUB DATE OF EXAM: 11/17/2017 COMPARISON: 03/26/2017 HISTORY: Pain TECHNIQUE: One view abdominal series FINDINGS: The osseous structures are intact. The bowel gas pattern is nonspecific. Evidence of previous surger y noted. Arthropathy of the hips and degenerative change of the spine. Surgical clips in the pelvis. Vascular calcification suggested. Curvature of the spine noted. IMPRESSION: 1. Nonspecific abdomen.
== END | disposition home or self-care (01) ==
LOC: RADXRMAIN 11:39
PROVIDERS: ATTEND Urology
DX: N23 Unspecified renal colic (principal)
CPT/HCPCS: 74018

== ENCOUNTER → 2018-01-27 | Outpatient (CLI) | payer OTHER ==
--- NOTE | 2018-01-27 14:30 | MR ---
EXAMINATION TYPE: MR cspine/lspine wo con DATE OF EXAM: 01/27/2018 COMPARISON: Cervical spine CT March 26, 2017. HISTORY: neck pain; low back pain per order. Low back pain for over 8 years per patient. Neck pain f or 8 years with pain or weakness into both arms and fingers per patient. TECHNIQUE: Multiplanar, multisequence imaging of the cervical and lumbar spine are performed without IV contrast. FINDINGS: C-SPINE: Exam noted suboptimal secondary to artifact related to patient's large body habitus. FINDINGS: Sagittal images of the cervical spine show the craniocervical junction to appear within nor mal limits. The cervical and upper thoracic spinal cord is likely normal in course, caliber, and sig nal. Vertebral alignment is stable and straightened. The vertebral body heights remain normal. The re is mild disc space narrowing C5-C6 level redemonstrated. There is moderate disc space narrowing wi th mild to moderate anterior spurring and heterogeneous Modic type II endplate changes anteriorly C6- C7 level redemonstrated. Small posterior disc herniations are effacing anterior thecal sac C3-C4 thro ugh C6-C7 levels on sagittal images. Axial images show the C2-C3 level to appear within normal limits. Axial images at C3-C4 level show uncovertebral facet degenerative changes bilaterally with broad-base d posterior disc protrusion, there is effacement of the anterior thecal sac with moderate to advanced right and moderate left-sided neural foraminal narrowing. Axial images at C4-C5 level show uncovertebral facet degenerative changes bilaterally with posterior spur disc complex, there is effacement of the anterior thecal sac with advanced right and moderate le ft-sided neural foraminal narrowing redemonstrated. Axial images at the C5-C6 level show broad-based posterior disc protrusion effacing anterior thecal s ac and causing advanced left and moderate right-sided neural foraminal narrowing as there is addition al marginal spurring seen. Axial images at C6-C7 level show broad-based left paracentral disc protrusion effacing anterolateral thecal sac and causing moderate to advanced left with mild to moderate right-sided neural foraminal n arrowing seen. Axial images at C7-T1 level are felt within normal limits. IMPRESSION: Straightening of cervical spine with multilevel degenerative changes redemonstrated as de tailed above. L-SPINE: Sagittal images of the lumbar spine show vertebral body heights to appear satisfactory. Survey images show slight dextroconvex scoliotic curvature centered at L1 level. Multilevel disc desiccation is pr esent. Disc space heights are fairly well-maintained. No large posterior disc herniations are seen on sagittal images. The conus medullaris is slightly lower in position ending L1-L2 disc space level. No abnormal signal is noted. The bone marrow signal intensity is within normal limits. Axial images at the T12-L1 level shows mild to moderate broad disc bulge and mild facet degenerative changes bilaterally on axial image 27. There is some effacement of the anterior and posterior lateral thecal sac. Bilateral neural foramina are patent. Axial images at the L1-L2 level show mild right-sided facet degenerative changes bilaterally. There i s right foraminal disc protrusion seen but the lateral neural foramina remain patent. Spinal canal is preserved. Axial images at the L2-L3 level are felt to appear within normal limits. Axial images at the L3-L4 level show mild to moderate facet degenerative changes and ligament flavum hypertrophy with mild to moderate broad disc bulge. There is effacement of the anterior thecal sac. T here is mild bilateral anterior inferior neural foraminal narrowing seen. Axial images at L4-L5 level show moderate to advanced facet degenerative changes. There is mild to mo derate right-sided anterior inferior neural foraminal narrowing seen. Left-sided neural foramina show s mild narrowing. Axial images at L5-S1 level show mild to moderate facet degenerative changes bilaterally. There is ri ght lateral disc protrusion. Spinal canal is preserved. There is annular tear present. Bilateral neur al foramina are patent. No suspicious retroperitoneal findings are identified. IMPRESSION: Multilevel degenerative changes in the lumbar spine as detailed above
== END | disposition home or self-care (01) ==
LOC: RADMRIMAIN 12:01
PROVIDERS: ATTEND Neurological Surgery
DX: M99.73 Connective tissue and disc stenosis of intervertebral foramina of lumbar region (principal); M51.25 Other intervertebral disc displacement, thoracolumbar region; M47.815 Spondylosis without myelopathy or radiculopathy, thoracolumbar region; M47.818 Spondylosis without myelopathy or radiculopathy, sacral and sacrococcygeal region; M48.02 Spinal stenosis, cervical region; M99.71 Connective tissue and disc stenosis of intervertebral foramina of cervical region; M50.21 Other cervical disc displacement, high cervical region; M47.812 Spondylosis without myelopathy or radiculopathy, cervical region
CPT/HCPCS: 72141; 72148

== ENCOUNTER 2018-03-06 15:30 | Inpatient (IN) | payer OTHER, MEDICARE ==
[2018-03-06] MEDS ORDERED: SODIUM CHLORIDE 0.9% 1,000 ML IV STA (16:20)
[2018-03-06 17:10] LABS: Basophils % (A) 0 %; Eosinophils # (A) 0.1 k/uL (0-0.7); Eosinophils % (A) 1 %; HCT 36.1 % (39.0-53.0); HGB 12.2 gm/dL (13.0-17.5); Lymphocytes # (A) 1.2 k/uL (1.0-4.8); Lymphocytes % (A) 10 %; MCH 28.2 pg (25.0-35.0); MCHC 33.8 g/dL (31.0-37.0); MCV 83.4 fL (80.0-100.0); Monocytes # (A) 0.5 k/uL (0-1.0); Monocytes % (A) 5 %; Neutrophils # (A) 9.5 k/uL (1.3-7.7); Neutrophils % (A) 83 %; Platelet Count 135 k/uL (150-450); RBC 4.33 m/uL (4.30-5.90); RDW 15.6 % (11.5-15.5); WBC 11.5 k/uL (3.8-10.6)
--- NOTE | 2018-03-06 17:15 | ED ---
Male Urogenital HPI - General Chief complaint: Urogenital Stated complaint: Fever, unable to urinate Time Seen by Provider: 03/06/18 16:20 Source: patient, RN notes reviewed Mode of arrival: wheelchair Limitations: no limitations - History of Present Illness Initial comments: 68-year-old male presents emergency Department chief complaint of generalized weakness, possible urinary tract infection. Patient states that he struck with urinary tract infection states that he usually gets very weak from them. Patient states she's had increased weakness so she is lower shunted so the last week or so. Patient was seen at the [place] [facility] and was sent emergency Department to rule out urinary tract infection, sepsis. Patient denies any chest pain, shortness breath, headache or dizziness at this time. Patient states he normally has some weakness to his legs states that he can barely stand at this time. Patient has noticed that his urine has been more dark than usual and states that he feels he has trouble going. Patient denies any abdominal pain but he does complain of increased flank pain. - Related Data Home Medications Medication Instructions Recorded Confirmed Allopurinol [Zyloprim] 100 mg PO BID 12/02/14 03/06/18 Ergocalciferol [Vitamin D2 100,000 unit PO MO 12/02/14 03/06/18 (DRISDOL)] Finasteride [Proscar] 5 mg PO DAILY 12/02/14 03/06/18 Insulin Aspart [NovoLOG] 40 units SQ AC-TID 12/02/14 03/06/18 Levothyroxine Sodium [Synthroid] 50 mcg PO DAILY 12/02/14 03/06/18 [place]-3 Fatty Acids/Fish Oil [Fish 600 mg PO BID 12/02/14 03/06/18 Oil 1,000 mg Softgel] Pravastatin Sodium [Pravachol] 40 mg PO HS 12/02/14 03/06/18 Sertraline [Zoloft] 200 mg PO QAM 12/02/14 03/06/18 Tamsulosin [Flomax] 0.8 mg PO HS 12/02/14 03/06/18 Ziprasidone [Geodon] 20 mg PO TID 12/02/14 03/06/18 carBAMazepine [TEGretol] 200 mg PO TID 12/02/14 03/06/18 Cyanocobalamin [Vitamin B-12 1,000 mcg SQ QMONTH 09/30/15 03/06/18 Injection] Carvedilol [Coreg] 6.25 mg PO BID 11/25/16 03/06/18 Pantoprazole Sodium [Protonix] 40 mg PO BID 11/25/16 03/06/18 Sennosides/Docusate Sodium [Ana 2 tab PO BID 11/25/16 03/06/18 Colace] Gemfibrozil [Lopid] 600 mg PO BID 12/21/16 03/06/18 Multivitamins, Thera [Multivitamin 1 tab PO DAILY 12/21/16 03/06/18 (formulary)] Baclofen [Lioresal] 10 mg PO BID 03/14/17 03/06/18 Insulin Glargine,Hum.rec.anlog 120 unit SQ HS 03/14/17 03/06/18 [Lantus Solostar] Ranitidine HCl [Zantac] 300 mg PO HS 07/01/17 03/06/18 Baclofen [Lioresal] 10 mg PO DAILY PRN 03/06/18 03/06/18 Baclofen [Lioresal] 20 mg PO HS 03/06/18 03/06/18 Carboxymethylcellulose Sodium 1 drop BOTH EYES QID 03/06/18 03/06/18 [Restore Plus] Dextrose Chew [Glucose Chew Tab] 4 gm PO TID 03/06/18 03/06/18 Loratadine [Claritin] 10 mg PO DAILY 03/06/18 03/06/18 Miconazole Nitrate [Miconazole 1 applic TOPICAL BID 03/06/18 03/06/18 Nitrate 2%] Naloxone HCl [Narcan] 4 mg NASAL ONCE PRN 03/06/18 03/06/18 Polyethylene Glycol 3350 [Clearlax] 17 gm PO DAILY 03/06/18 03/06/18 Polyvinyl Alcohol 1.4% Soln 1 drop BOTH EYES DAILY PRN 03/06/18 03/06/18 Pregabalin [Lyrica] 100 mg PO TID 03/06/18 03/06/18 metFORMIN HCL 1,000 mg PO BID 03/06/18 03/06/18 Previous Rx's Medication Instructions Recorded Clopidogrel Bisulfate [Plavix] 75 mg PO DAILY #20 tab 10/01/15 clonazePAM [KlonoPIN] 0.5 mg PO TID #20 12/02/16 Allergies Allergy/AdvReac Type Severity Reaction Status Date / Time aspirin Allergy ABDOMINAL Verified 03/06/18 16:43 DISCOMFORT etodolac [From Lodine] Allergy Unknown Verified 03/06/18 16:43 oxybutynin Allergy Unknown Verified 03/06/18 16:43 Review of Systems ROS Statement: Those systems with pertinent positive or pertinent negative responses have been documented in the HPI. ROS Other: All systems not noted in ROS Statement are negative. Past Medical History Past Medical History: CVA/TIA, Diabetes Mellitus, Deep Vein Thrombosis (DVT), GERD/Reflux, Hypertension, Myocardial Infarction (VT), Prostate Disorder, Pulmonary Embolus (PE), Sleep Apnea/CPAP/BIPAP, Thyroid Disorder Additional Past Medical History / Comment(s): Morbid obesity, obstructive sleep apnea uses CPAP-uses O2 at 5 L during night with cpap,SOB,history of peripheral neuropathy severe associated related to diabetes mellitus, gait dysfunction and frequent falls-uses w/c-able to stand to transfer, chronic back pain, gout, BPH , TIA/CVA-loyda arm and leg weakness, previous history of C. diff colitis back in 2010,hypothyroidism,colon polyps Last Myocardial Infarction Date:: 2010 History of Any Multi-Drug Resistant Organisms: None Reported Date of last positivie culture/infection: None MDRO Source:: None Past Surgical History: Hernia Repair Additional Past Surgical History / Comment(s): hiatal hernia repair x 2, umbilical hernia repair,2nd digit rt hand amputated Past Anesthesia/Blood Transfusion Reactions: No Reported Reaction Past Psychological History: Bipolar, Depression, PTSD Smoking Status: Never smoker Past Alcohol Use History: None Reported Past Drug Use History: None Reported - Past Family History Father Family Medical History: Cancer Additional Family Medical History / Comment(s): lung Mother Family Medical History: Cancer Additional Family Medical History / Comment(s): bladder General Exam Limitations: no limitations General appearance: alert, in no apparent distress Head exam: Present: atraumatic, normocephalic, normal inspection Eye exam: Present: normal appearance, PERRL, EOMI. Absent: scleral icterus, conjunctival injection, periorbital swelling Respiratory exam: Present: normal lung sounds bilaterally. Absent: respiratory distress, wheezes, rales, rhonchi, stridor Cardiovascular Exam: Present: regular rate, normal rhythm, normal heart sounds. Absent: systolic murmur, diastolic murmur, rubs, gallop, clicks GI/Abdominal exam: Present: soft, normal bowel sounds. Absent: distended, tenderness, guarding, rebound, rigid Back exam: Present: tenderness. Absent: CVA tenderness (R), CVA tenderness (L) Neurological exam: Present: alert, oriented X3, CN II-XII intact Skin exam: Present: warm, dry, intact, normal color. Absent: rash Course Vital Signs 03/06/18 03/06/18 03/06/18 16:04 19:09 19:51 Temperature 99.2 F 98.5 F Pulse Rate 92 84 77 Respiratory 20 17 22 Rate Blood Pressure 121/78 154/70 156/72 O2 Sat by Pulse 92 L 94 L 92 L Oximetry 03/06/18 19:55 Temperature Pulse Rate Respiratory Rate Blood Pressure O2 Sat by Pulse 96 Oximetry Medical Decision Making - Medical Decision Making 68-year-old male presented for possible sepsis, UTI. Patient does have elevated lactic acid, elevated white count but no clear source for infection at this time. Patient has generalized weak and has decreased strength. Patient also has noted elevated troponin hyperglycemia. Patient will be admitted for repeat cardiac enzymes, heparin, hydration. - Lab Data Result diagrams: 03/06/18 16:48 03/06/18 16:48 Lab Results 03/06/18 03/06/18 03/06/18 Range/Units 16:48 16:48 16:48 WBC 11.5 H (3.8-10.6) k/uL RBC 4.33 (4.30-5.90) m/uL Hgb 12.2 L (13.0-17.5) gm/dL Hct 36.1 L (39.0-53.0) % MCV 83.4 (80.0-100.0) fL MCH 28.2 (25.0-35.0) pg MCHC 33.8 (31.0-37.0) g/dL RDW 15.6 H (11.5-15.5) % Plt Count 135 L (150-450) k/uL Neutrophils % 83 % Lymphocytes % 10 % Monocytes % 5 % Eosinophils % 1 % Basophils % 0 % Neutrophils # 9.5 H (1.3-7.7) k/uL Lymphocytes # 1.2 (1.0-4.8) k/uL Monocytes # 0.5 (0-1.0) k/uL Eosinophils # 0.1 (0-0.7) k/uL Basophils # 0.0 (0-0.2) k/uL Sodium 138 (137-145) mmol/L Potassium 5.0 (3.5-5.1) mmol/L Chloride 101 (98-107) mmol/L Carbon Dioxide 23 (22-30) mmol/L Anion Gap 14 mmol/L BUN 30 H (9-20) mg/dL Creatinine 1.10 (0.66-1.25) mg/dL Est GFR (CKD-EPI)AfAm 79 (>60 ml/min/1.73 sqM) Est GFR (CKD-EPI)NonAf 68 (>60 ml/min/1.73 sqM) Glucose 339 H (74-99) mg/dL Plasma Lactic Acid Anthony 3.3 H* (0.7-2.0) mmol/L Calcium 9.9 (8.4-10.2) mg/dL Total Bilirubin 0.4 (0.2-1.3) mg/dL AST 60 H (17-59) U/L ALT 30 (21-72) U/L Alkaline Phosphatase 70 (38-126) U/L Troponin I (0.000-0.034) ng/mL Total Protein 7.6 (6.3-8.2) g/dL Albumin 4.6 (3.5-5.0) g/dL Amylase 52 (30-110) U/L Lipase 102 (23-300) U/L Urine Color Urine Appearance (Clear) Urine pH (5.0-8.0) Ur Specific Pey[place] (1.001-1.035) Urine Protein (Negative) Urine Glucose (UA) (Negative) Urine Ketones (Negative) Urine Blood (Negative) Urine Nitrite (Negative) Urine Bilirubin (Negative) Urine Urobilinogen (<2.0) mg/dL Ur Leukocyte Esterase (Negative) Urine RBC (0-5) /hpf Urine WBC (0-5) /hpf Hyaline Casts (0-2) /lpf Urine Mucus (None) /hpf 03/06/18 03/06/18 Range/Units 16:48 17:46 WBC (3.8-10.6) k/uL RBC (4.30-5.90) m/uL Hgb (13.0-17.5) gm/dL Hct (39.0-53.0) % MCV (80.0-100.0) fL MCH (25.0-35.0) pg MCHC (31.0-37.0) g/dL RDW (11.5-15.5) % Plt Count (150-450) k/uL Neutrophils % % Lymphocytes % % Monocytes % % Eosinophils % % Basophils % % Neutrophils # (1.3-7.7) k/uL Lymphocytes # (1.0-4.8) k/uL Monocytes # (0-1.0) k/uL Eosinophils # (0-0.7) k/uL Basophils # (0-0.2) k/uL Sodium (137-145) mmol/L Potassium (3.5-5.1) mmol/L Chloride (98-107) mmol/L Carbon Dioxide (22-30) mmol/L Anion Gap mmol/L BUN (9-20) mg/dL Creatinine (0.66-1.25) mg/dL Est GFR (CKD-EPI)AfAm (>60 ml/min/1.73 sqM) Est GFR (CKD-EPI)NonAf (>60 ml/min/1.73 sqM) Glucose (74-99) mg/dL Plasma Lactic Acid Anthony (0.7-2.0) mmol/L Calcium (8.4-10.2) mg/dL Total Bilirubin (0.2-1.3) mg/dL AST (17-59) U/L ALT (21-72) U/L Alkaline Phosphatase (38-126) U/L Troponin I 0.039 H* (0.000-0.034) ng/mL Total Protein (6.3-8.2) g/dL Albumin (3.5-5.0) g/dL Amylase (30-110) U/L Lipase (23-300) U/L Urine Color Yellow Urine Appearance Clear (Clear) Urine pH 5.5 (5.0-8.0) Ur Specific [place] 1.020 (1.001-1.035) Urine Protein 2+ H (Negative) Urine Glucose (UA) 3+ H (Negative) Urine Ketones Negative (Negative) Urine Blood Trace H (Negative) Urine Nitrite Negative (Negative) Urine Bilirubin Negative (Negative) Urine Urobilinogen <2.0 (<2.0) mg/dL Ur Leukocyte Esterase Negative (Negative) Urine RBC <1 (0-5) /hpf Urine WBC 1 (0-5) /hpf Hyaline Casts 3 H (0-2) /lpf Urine Mucus Rare H (None) /hpf Disposition Clinical Impression: Dehydration, Lactic acidosis, Weakness, Elevated troponin Disposition: ADMITTED IP TO THIS HOSP Condition: Fair Referrals: [facility],Cl[facility] [Primary Care Provider] - 1-2 days
[2018-03-06 17:19] LABS: Albumin 4.6 g/dL (3.5-5.0); Calcium 9.9 mg/dL (8.4-10.2); Total Bilirubin 0.4 mg/dL (0.2-1.3); Total Protein 7.6 g/dL (6.3-8.2)
[2018-03-06 18:34] LABS: Appearance,Urine Clear (Clear); Bilirubin,Urine Negative (Negative); Blood,Urine Trace (Negative); Color,Urine Yellow; Glucose,Urine (UA) 3+ (Negative); Hyaline Casts,Urine 3 /lpf (0-2); Ketones,Urine Negative (Negative); Leukocyte Esterase,Urine Negative (Negative); Mucus,Urine Rare /hpf; Nitrite,Urine Negative (Negative); PH, Urine 5.5 (5.0-8.0); Protein,Urine 2+ (Negative); RBC,Urine <1 /hpf (0-5); Urobilinogen,Urine <2.0 mg/dL (<2.0); WBC,Urine 1 /hpf (0-5)
--- NOTE | 2018-03-06 19:18 | XR ---
EXAMINATION TYPE: XR chest 2V DATE OF EXAM: 03/06/2018 COMPARISON: 03/26/2017 HISTORY: Weakness TECHNIQUE: Frontal and lateral views of the chest are obtained. FINDINGS: There is no heart failure nor confluent pneumonic infiltrate. Costophrenic angles are caterina r. Heart size is normal. Bony thorax is intact. IMPRESSION: No active cardiopulmonary disease. Normal heart. No change.
--- NOTE | 2018-03-06 19:48 | CT ---
EXAMINATION TYPE: CT abdomen pelvis w con DATE OF EXAM: 03/06/2018 COMPARISON: None HISTORY: Fever and abdominal pain CT DLP: 2374 mGycm Automated exposure control for dose reduction was used. TECHNIQUE: Helical acquisition of images was performed from the lung bases through the pelvis. CONTRAST: Performed without Oral Contrast and with IV Contrast, patient injected with 100 mL of Isovue 300. FINDINGS: There is minimal subsegmental atelectasis at the lung bases. Heart is enlarged. There is some fatty i nfiltration of the liver. There is no focal liver defect. There are multiple tiny calcified gallstone s. Bile ducts are not dilated. Spleen appears normal. There is no pancreatic mass. There is no adrena l mass. There are numerous bilateral renal cysts that measure up to 5.5 cm. There is no hydronephrosi s. Ureters are not dilated. There is no retroperitoneal adenopathy. There is no ascites. Bladder dist ends smoothly. There is no inguinal hernia. There is no free fluid in the pelvis. I see no intestinal wall thickening. There are no dilated loops. Lumbar spine is intact. Bony pelvis is intact. There is previous surgery in the anterior mid abdomen with surgical clips in the distended loop of bowel that could be the fluid-filled cecum. There is no mesenteric edema or adenopathy. IMPRESSION: NUMEROUS RENAL CYSTS. CALCIFIED GALLSTONES. NO DILATED DUCTS. Minimal subsegmental atelectasis at the lung bases.
[2018-03-06] MEDS ORDERED: NITROGLYCERIN SL TABS 0.4 MG TAB SUBLINGUAL PRN (20:03)
[2018-03-06] MEDS ORDERED: HEPARIN SODIUM,PORCINE 5,000 UNIT/ML 1 ML VIAL IV ONE (20:03)
[2018-03-06] MEDS ORDERED: INSULIN DETEMIR 100 UNIT/ML 10 ML VIAL SQ SCH (21:00)
[2018-03-06] MEDS ORDERED: PRAVASTATIN SODIUM 80 MG TAB PO SCH (21:00)
[2018-03-06] MEDS: HEPARIN SOD,PORK IN 0.45% NACL 25,000 UNIT in 0.45% NACL 1 500ML.BAG IV SCH (22:40)
[2018-03-06 22:51] LABS: Glucose,Whole Blood 209 mg/dL (75-99)
[2018-03-06] MEDS: PRAVASTATIN SODIUM 40 MG TAB PO SCH (23:14)
[2018-03-06] MEDS: ARTIFICIAL TEARS-HYPROMELLOSE DROPS 15 ML BTL BOTH EYES SCH (23:14)
[2018-03-06] MEDS: FENOFIBRATE 160 MG TAB PO SCH (23:15)
[2018-03-06] MEDS: ALLOPURINOL 100 MG TAB PO SCH (23:15)
[2018-03-06] MEDS: metFORMIN 500 MG TAB PO SCH (23:16)
[2018-03-06] MEDS: BACLOFEN 10 MG TAB PO SCH ×2 (23:19)
[2018-03-07 00:01] LABS: Creatine Kinase MB 1.5 ng/mL (0.0-2.4)
[2018-03-07] MEDS: ZIPRASIDONE 20 MG CAP PO SCH ×4 (00:03→21:58)
[2018-03-07] MEDS: carBAMazepine 200 MG TAB PO SCH ×4 (00:03→21:25)
[2018-03-07] MEDS ORDERED: ACETAMINOPHEN TAB 325 MG TAB PO STA (00:05)
[2018-03-07 00:26] LABS: Troponin I 0.046 ng/mL (0.000-0.034)
[2018-03-07] MEDS: INSULIN ASPART 100 UNIT/ML 1 ML 10 ML VIAL SQ SCH ×5 (03:44→21:24)
[2018-03-07] MEDS: PANTOPRAZOLE 40 MG TABLET PO SCH ×3 (03:45→21:25)
[2018-03-07] MEDS: clonazePAM 0.5 MG TAB PO SCH ×4 (03:45→21:25)
[2018-03-07] MEDS: PREGABALIN 100 MG CAP PO SCH ×4 (03:45→21:25)
[2018-03-07 05:49] LABS: Glucose,Whole Blood 278 mg/dL (75-99)
[2018-03-07] MEDS: CARVEDILOL 6.25 MG TAB PO SCH ×2 (06:27→17:28)
[2018-03-07] MEDS: LEVOTHYROXINE 50 MCG TAB PO SCH (06:27)
[2018-03-07 06:40] LABS: Cholesterol 191 mg/dL (<200); HDL Cholesterol 25 mg/dL (40-60)
[2018-03-07 06:59] LABS: Triglycerides 1062 mg/dL (<150)
[2018-03-07 07:38] LABS: Creatine Kinase MB 1.2 ng/mL (0.0-2.4); Troponin I 0.033 ng/mL (0.000-0.034)
[2018-03-07] MEDS: BACLOFEN 10 MG TAB PO SCH ×3 (09:08→21:24)
[2018-03-07] MEDS: FENOFIBRATE 160 MG TAB PO SCH ×2 (09:08→21:24)
[2018-03-07] MEDS: FINASTERIDE 5 MG TAB PO SCH (09:08)
[2018-03-07] MEDS: ALLOPURINOL 100 MG TAB PO SCH ×2 (09:08→21:24)
[2018-03-07] MEDS: CLOPIDOGREL 75 MG TAB PO SCH (09:08)
[2018-03-07] MEDS: ASPIRIN 325 MG TAB PO SCH (09:08)
[2018-03-07] MEDS: ARTIFICIAL TEARS-HYPROMELLOSE DROPS 15 ML BTL BOTH EYES SCH ×4 (09:08→21:25)
[2018-03-07] MEDS: SERTRALINE 100 MG TAB PO SCH (09:12)
[2018-03-07] MEDS: metFORMIN 500 MG TAB PO SCH ×2 (09:12→21:25)
[2018-03-07 12:16] LABS: Glucose,Whole Blood 349 mg/dL (75-99)
[2018-03-07] MEDS: ACETAMINOPHEN TAB 325 MG TAB PO PRN ×2 (15:00→21:26)
[2018-03-07 17:27] LABS: Glucose,Whole Blood 320 mg/dL (75-99)
[2018-03-07 17:53] LABS: Hemoglobin A1C 8.7 % (4.0-6.0)
[2018-03-07] MEDS ORDERED: INSULIN DETEMIR 100 UNIT/ML 10 ML VIAL SQ SCH (18:07)
[2018-03-07 20:19] LABS: Glucose,Whole Blood 324 mg/dL (75-99)
[2018-03-07] MEDS: HEPARIN SOD,PORK IN 0.45% NACL 25,000 UNIT in 0.45% NACL 1 500ML.BAG IV SCH (21:24)
[2018-03-07] MEDS: INSULIN DETEMIR 100 UNIT/ML 10 ML VIAL SQ SCH (21:59)
[2018-03-08 01:46] LABS: Glucose,Whole Blood 227 mg/dL (75-99)
[2018-03-08 04:19] LABS: Calcium 9.1 mg/dL (8.4-10.2); Potassium 4.3 mmol/L (3.5-5.1)
[2018-03-08 04:53] LABS: Basophils % (A) 0 %; Eosinophils # (A) 0.1 k/uL (0-0.7); Eosinophils % (A) 2 %; HCT 34.3 % (39.0-53.0); HGB 11.2 gm/dL (13.0-17.5); Lymphocytes # (A) 1.1 k/uL (1.0-4.8); Lymphocytes % (A) 19 %; MCHC 32.7 g/dL (31.0-37.0); MCV 85.6 fL (80.0-100.0); Monocytes # (A) 0.3 k/uL (0-1.0); Monocytes % (A) 5 %; Neutrophils % (A) 71 %; Platelet Count 118 k/uL (150-450); RBC 4.01 m/uL (4.30-5.90); RDW 15.7 % (11.5-15.5); WBC 5.6 k/uL (3.8-10.6)
[2018-03-08 05:48] LABS: Glucose,Whole Blood 291 mg/dL (75-99)
[2018-03-08] MEDS: CARVEDILOL 6.25 MG TAB PO SCH ×2 (06:31→17:17)
[2018-03-08] MEDS: PANTOPRAZOLE 40 MG TABLET PO SCH ×2 (06:31→22:51)
[2018-03-08] MEDS: INSULIN ASPART 100 UNIT/ML 1 ML 10 ML VIAL SQ SCH ×4 (06:32→22:53)
[2018-03-08] MEDS: LEVOTHYROXINE 50 MCG TAB PO SCH (06:34)
[2018-03-08] MEDS: ARTIFICIAL TEARS-HYPROMELLOSE DROPS 15 ML BTL BOTH EYES SCH ×3 (08:40→17:18)
[2018-03-08] MEDS: FINASTERIDE 5 MG TAB PO SCH (08:40)
[2018-03-08] MEDS: BACLOFEN 10 MG TAB PO SCH ×3 (08:40→22:51)
[2018-03-08] MEDS: ALLOPURINOL 100 MG TAB PO SCH ×2 (08:40→22:52)
[2018-03-08] MEDS: carBAMazepine 200 MG TAB PO SCH ×3 (08:40→22:52)
[2018-03-08] MEDS: ASPIRIN 325 MG TAB PO SCH (08:40)
[2018-03-08] MEDS: metFORMIN 500 MG TAB PO SCH ×2 (08:41→22:51)
[2018-03-08] MEDS: CLOPIDOGREL 75 MG TAB PO SCH (08:41)
[2018-03-08] MEDS: SERTRALINE 100 MG TAB PO SCH (08:41)
[2018-03-08] MEDS: PREGABALIN 100 MG CAP PO SCH ×3 (08:41→22:51)
[2018-03-08] MEDS: ZIPRASIDONE 20 MG CAP PO SCH ×2 (08:41→15:35)
[2018-03-08] MEDS: clonazePAM 0.5 MG TAB PO SCH ×2 (08:41→15:35)
[2018-03-08] MEDS: FENOFIBRATE 160 MG TAB PO SCH ×2 (08:41→20:08)
[2018-03-08 11:45] LABS: Glucose,Whole Blood 301 mg/dL (75-99)
--- NOTE | 2018-03-08 12:25 | P.HPIM ---
History of Present Illness H&P Date: 03/07/18 Chief Complaint: Fever/inability to urinate 68-year-old male presents emergency Department chief complaint of generalized weakness, possible urinary tract infection. Patient states that he struck with urinary tract infection states that he usually gets very weak from them. Patient states she's had increased weakness so she is lower shunted so the last week or so. Patient was seen at the [facility] and was sent emergency Department to rule out urinary tract infection, sepsis. Patient denies any chest pain, shortness breath, headache or dizziness at this time. Patient states he normally has some weakness to his legs states that he can barely stand at this time. Patient has noticed that his urine has been more dark than usual and states that he feels he has trouble going. Patient denies any abdominal pain but he does complain of increased flank pain. Patient is admitted for possible sepsis, UTI; elevated troponin and hyperglycemia. Patient does have elevated lactic acid, elevated white count but no clear source for infection at this time. Patient has generalized weak and has decreased strength. Patient also has noted elevated troponin hyperglycemia. Patient will be admitted for repeat cardiac enzymes, heparin, hydration. Review of Systems Constitutional: Reports chills, Reports fatigue, Reports fever Eyes: denies blurred vision, denies discharge Ears, nose, mouth and throat: Reports bleeding gums, Reports nasal congestion Cardiovascular: Denies chest pain, Denies dyspnea on exertion, Denies leg edema , Denies lightheadedness Respiratory: Denies cough, Denies cough with sputum, Denies excessive sputum Gastrointestinal: Reports abdominal pain, Denies nausea, Denies vomiting Genitourinary: Reports dysuria, Denies hematuria Musculoskeletal: Denies frequent falls, Denies morning stiffness, Denies muscle cramps Integumentary: Denies color changes, Denies darkening of skin, Denies rash Neurological: Reports ataxia, Denies confusion, Denies convulsions Endocrine: Denies cold intolerance, Denies heat intolerance, Denies palpitations Hematologic/Lymphatic: Denies easy bleeding, Denies easy bruising, Denies lymphadenopathy Past Medical History Past Medical History: CVA/TIA, Diabetes Mellitus, Deep Vein Thrombosis (DVT), GERD/Reflux, Hypertension, Myocardial Infarction (NC), Prostate Disorder, Pulmonary Embolus (PE), Sleep Apnea/CPAP/BIPAP, Thyroid Disorder Additional Past Medical History / Comment(s): Morbid obesity, obstructive sleep apnea uses CPAP-uses O2 at 5 L during night with cpap,SOB,history of peripheral neuropathy severe associated related to diabetes mellitus, gait dysfunction and frequent falls-uses w/c-able to stand to transfer, chronic back pain, gout, BPH , TIA/CVA-loyda arm and leg weakness, previous history of C. diff colitis back in 2010,hypothyroidism,colon polyps Last Myocardial Infarction Date:: 2010 History of Any Multi-Drug Resistant Organisms: None Reported Date of last positivie culture/infection: None MDRO Source:: None Past Surgical History: Hernia Repair Additional Past Surgical History / Comment(s): hiatal hernia repair x 2, umbilical hernia repair,2nd digit rt hand amputated Past Anesthesia/Blood Transfusion Reactions: No Reported Reaction Past Psychological History: Bipolar, Depression, PTSD Additional Psychological History / Comment(s): severe PTSD. pt stated he always feels depressed but currently no thoughts of wanting to harm himself. pt lives with his and 2 pets dogs. has mechanical lift into home. w/c, electric scooter, cpap, o2. has helper come in to care for him when his needs to be away from home. has life alert.served in the [employer]. 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 Smoking Status: Never smoker Past Alcohol Use History: None Reported Past Drug Use History: None Reported - Past Family History Father Family Medical History: Cancer Additional Family Medical History / Comment(s): lung Mother Family Medical History: Cancer Additional Family Medical History / Comment(s): bladder Medications and Allergies Home Medications Medication Instructions Recorded Confirmed Type Allopurinol [Zyloprim] 100 mg PO BID 12/02/14 03/06/18 History Ergocalciferol [Vitamin D2 100,000 unit PO MO 12/02/14 03/06/18 History (DRISDOL)] Finasteride [Proscar] 5 mg PO DAILY 12/02/14 03/06/18 History Insulin Aspart [NovoLOG] 40 units SQ AC-TID 12/02/14 03/06/18 History Levothyroxine Sodium [Synthroid] 50 mcg PO DAILY 12/02/14 03/06/18 History [place]-3 Fatty Acids/Fish Oil [Fish 600 mg PO BID 12/02/14 03/06/18 History Oil 1,000 mg Softgel] Pravastatin Sodium [Pravachol] 40 mg PO HS 12/02/14 03/06/18 History Sertraline [Zoloft] 200 mg PO QAM 12/02/14 03/06/18 History Tamsulosin [Flomax] 0.8 mg PO HS 12/02/14 03/06/18 History Ziprasidone [Geodon] 20 mg PO TID 12/02/14 03/06/18 History carBAMazepine [TEGretol] 200 mg PO TID 12/02/14 03/06/18 History Cyanocobalamin [Vitamin B-12 1,000 mcg SQ QMONTH 09/30/15 03/06/18 History Injection] Clopidogrel Bisulfate [Plavix] 75 mg PO DAILY #20 tab 10/01/15 03/06/18 Rx Carvedilol [Coreg] 6.25 mg PO BID 11/25/16 03/06/18 History Pantoprazole Sodium [Protonix] 40 mg PO BID 11/25/16 03/06/18 History Sennosides/Docusate Sodium [Ana 2 tab PO BID 11/25/16 03/06/18 History Colace] clonazePAM [KlonoPIN] 0.5 mg PO TID #20 12/02/16 03/06/18 Rx Gemfibrozil [Lopid] 600 mg PO BID 12/21/16 03/06/18 History Multivitamins, Thera [Multivitamin 1 tab PO DAILY 12/21/16 03/06/18 History (formulary)] Baclofen [Lioresal] 10 mg PO BID 03/14/17 03/06/18 History Insulin Glargine,Hum.rec.anlog 120 unit SQ HS 03/14/17 03/06/18 History [Lantus Solostar] Ranitidine HCl [Zantac] 300 mg PO HS 07/01/17 03/06/18 History Baclofen [Lioresal] 10 mg PO DAILY PRN 03/06/18 03/06/18 History Baclofen [Lioresal] 20 mg PO HS 03/06/18 03/06/18 History Carboxymethylcellulose Sodium 1 drop BOTH EYES QID 03/06/18 03/06/18 History [Restore Plus] Dextrose Chew [Glucose Chew Tab] 4 gm PO TID 03/06/18 03/06/18 History Loratadine [Claritin] 10 mg PO DAILY 03/06/18 03/06/18 History Miconazole Nitrate [Miconazole 1 applic TOPICAL BID 03/06/18 03/06/18 History Nitrate 2%] Naloxone HCl [Narcan] 4 mg NASAL ONCE PRN 03/06/18 03/06/18 History Polyethylene Glycol 3350 [Clearlax] 17 gm PO DAILY 03/06/18 03/06/18 History Polyvinyl Alcohol 1.4% Soln 1 drop BOTH EYES DAILY PRN 03/06/18 03/06/18 History Pregabalin [Lyrica] 100 mg PO TID 03/06/18 03/06/18 History metFORMIN HCL 1,000 mg PO BID 03/06/18 03/06/18 History Allergies Allergy/AdvReac Type Severity Reaction Status Date / Time aspirin Allergy ABDOMINAL Verified 03/06/18 16:43 DISCOMFORT etodolac [From Lodine] Allergy Unknown Verified 03/06/18 16:43 oxybutynin Allergy Unknown Verified 03/06/18 16:43 Physical Exam Vitals: Vital Signs Temp Pulse Pulse Resp BP BP Pulse Ox 03/07/18 11:44 75 19 163/80 96 03/07/18 08:00 97 F L 70 19 145/80 93 L 03/07/18 04:00 97.4 F L 71 20 142/74 96 03/07/18 03:00 67 19 149/71 03/07/18 02:00 73 25 H 151/68 94 L 03/07/18 01:00 71 26 H 105/87 96 03/07/18 00:00 32 H 153/68 95 03/06/18 23:51 24 153/68 95 03/06/18 23:00 74 25 H 140/68 93 L 03/06/18 22:13 72 17 96 03/06/18 21:00 96 03/06/18 19:55 96 03/06/18 19:51 98.5 F 77 22 156/72 92 L 03/06/18 19:09 84 17 154/70 94 L 03/06/18 16:04 99.2 F 92 20 121/78 92 L Intake and Output 03/06/18 03/07/18 03/07/18 22:59 06:59 14:59 Intake Total 320.16 230 Output Total 550 Balance -550 320.16 230 Intake: IV 160 Heparin Sod,Pork in 0.45% 160 NaCl 25,000 unit In 0.45 % NaCl 1 500ml.bag @ 8.3 UNITS/KG/HR 20.02 mls/hr IV .Q24H ALONSO Rx#: [id number] Intake, IV Titration 160.16 Amount Heparin Sod,Pork in 0.45% 160.16 NaCl 25,000 unit In 0.45 % NaCl 1 500ml.bag @ 8.3 UNITS/KG/HR 20.02 mls/hr IV .Q24H ALONSO Rx#: [id number] Oral 230 Output: Urine 550 Straight 550 Other: Voiding Method Toilet Diaper Diaper Diaper Incontinent Incontinent # Voids 1 1 Weight 120.656 kg 121.5 kg General appearance: alert, in no apparent distress Head exam: Present: atraumatic, normocephalic, normal inspection Eye exam: Present: normal appearance, PERRL, EOMI. Absent: scleral icterus, conjunctival injection, periorbital swelling Respiratory exam: Present: normal lung sounds bilaterally. Absent: respiratory distress, wheezes, rales, rhonchi, stridor Cardiovascular Exam: Present: regular rate, normal rhythm, normal heart sounds. Absent: systolic murmur, diastolic murmur, rubs, gallop, clicks GI/Abdominal exam: Present: soft, normal bowel sounds. Absent: distended, tenderness, guarding, rebound, rigid Back exam: Present: tenderness. Absent: CVA tenderness (R), CVA tenderness (L) Neurological exam: Present: alert, oriented X3, CN II-XII intact Skin exam: Present: warm, dry, intact, normal color. Absent: rash Results CBC & Chem 7: 03/06/18 16:48 03/06/18 16:48 Labs: Abnormal Lab Results - Last 24 Hours (Table) 03/06/18 03/06/18 03/06/18 Range/Units 16:48 16:48 16:48 WBC 11.5 H (3.8-10.6) k/uL Hgb 12.2 L (13.0-17.5) gm/dL Hct 36.1 L (39.0-53.0) % RDW 15.6 H (11.5-15.5) % Plt Count 135 L (150-450) k/uL Neutrophils # 9.5 H (1.3-7.7) k/uL APTT (22.0-30.0) sec BUN 30 H (9-20) mg/dL Glucose 339 H (74-99) mg/dL POC Glucose (mg/dL) (75-99) mg/dL Plasma Lactic Acid Anthony 3.3 H* (0.7-2.0) mmol/L AST 60 H (17-59) U/L Total Creatine Kinase (55-170) U/L Troponin I (0.000-0.034) ng/mL Triglycerides (<150) mg/dL HDL Cholesterol (40-60) mg/dL Urine Protein (Negative) Urine Glucose (UA) (Negative) Urine Blood (Negative) Hyaline Casts (0-2) /lpf Urine Mucus (None) /hpf 03/06/18 03/06/18 03/06/18 Range/Units 16:48 17:46 22:41 WBC (3.8-10.6) k/uL Hgb (13.0-17.5) gm/dL Hct (39.0-53.0) % RDW (11.5-15.5) % Plt Count (150-450) k/uL Neutrophils # (1.3-7.7) k/uL APTT (22.0-30.0) sec BUN (9-20) mg/dL Glucose (74-99) mg/dL POC Glucose (mg/dL) (75-99) mg/dL Plasma Lactic Acid Anthony (0.7-2.0) mmol/L AST (17-59) U/L Total Creatine Kinase 187 H (55-170) U/L Troponin I 0.039 H* 0.046 H* (0.000-0.034) ng/mL Triglycerides (<150) mg/dL HDL Cholesterol (40-60) mg/dL Urine Protein 2+ H (Negative) Urine Glucose (UA) 3+ H (Negative) Urine Blood Trace H (Negative) Hyaline Casts 3 H (0-2) /lpf Urine Mucus Rare H (None) /hpf 03/06/18 03/07/18 03/07/18 Range/Units 22:48 05:18 05:47 WBC (3.8-10.6) k/uL Hgb (13.0-17.5) gm/dL Hct (39.0-53.0) % RDW (11.5-15.5) % Plt Count (150-450) k/uL Neutrophils # (1.3-7.7) k/uL APTT (22.0-30.0) sec BUN (9-20) mg/dL Glucose (74-99) mg/dL POC Glucose (mg/dL) 209 H 278 H (75-99) mg/dL Plasma Lactic Acid Anthony (0.7-2.0) mmol/L AST (17-59) U/L Total Creatine Kinase (55-170) U/L Troponin I (0.000-0.034) ng/mL Triglycerides 1062 H (<150) mg/dL HDL Cholesterol 25 L (40-60) mg/dL Urine Protein (Negative) Urine Glucose (UA) (Negative) Urine Blood (Negative) Hyaline Casts (0-2) /lpf Urine Mucus (None) /hpf 03/07/18 03/07/18 Range/Units 11:44 12:11 WBC (3.8-10.6) k/uL Hgb (13.0-17.5) gm/dL Hct (39.0-53.0) % RDW (11.5-15.5) % Plt Count (150-450) k/uL Neutrophils # (1.3-7.7) k/uL APTT 30.1 H (22.0-30.0) sec BUN (9-20) mg/dL Glucose (74-99) mg/dL POC Glucose (mg/dL) 349 H (75-99) mg/dL Plasma Lactic Acid Anthony (0.7-2.0) mmol/L AST (17-59) U/L Total Creatine Kinase (55-170) U/L Troponin I (0.000-0.034) ng/mL Triglycerides (<150) mg/dL HDL Cholesterol (40-60) mg/dL Urine Protein (Negative) Urine Glucose (UA) (Negative) Urine Blood (Negative) Hyaline Casts (0-2) /lpf Urine Mucus (None) /hpf Microbiology - Last 24 Hours (Table) 03/06/18 16:48 Blood Culture Gram Stain - Preliminary Blood Blood Culture - Preliminary 03/06/18 16:48 Blood Culture - Preliminary Blood Thrombosis Risk Factor Assmnt - Choose All That Apply Each Factor Represents 1 point: Obesity (BMI >25), Swollen legs (current) Each Risk Factor Represents 2 Points: Age 61-74 years Thrombosis Risk Factor Assessment Total Risk Factor Score: 4 Thrombosis Risk Factor Assessment Level: Moderate Risk Assessment and Plan Assessment: 1. Elevated troponin rule out non-ST elevation - Patient is started on IV heparin drip per protocol - We will monitor EKG closely and trend troponin - Cardiology is consulted for further recommendations 2. UTI/sepsis - Patient is given IV Rocephin in ED; we will continue same for now - Blood cultures and urine culture has been ordered; further recommendations according to culture results 3. Hyperglycemia; diabetes mellitus type 2 - Patient takes metformin 1000 mg twice a day; we will hold oral hypoglycemics on in the hospital - We will monitor Accu-Cheks before meals and at bedtime and insulin sliding scale 4. His coronary artery disease; status post NC in past; as above - We will continue patient on aspirin, statins, beta [place] in form of Coreg - Patient remains on IV heparin to further recommendations from cardiology service 5. Hypothyroidism; continue with home dose of levothyroxine 50 MCG daily 6. Morbid obesity/obstructive sleep apnea; patient uses CPAP at home with O2 at 5 L during the night 7. DVT prophylaxis; systemic anticoagulation with IV heparin CODE STATUS; full code
[2018-03-08] MEDS: ACETAMINOPHEN TAB 325 MG TAB PO PRN ×2 (12:41→20:08)
--- NOTE | 2018-03-08 13:45 | P.CRDCN ---
History of Present Illness Consult date: 03/08/18 History of present illness: This is a 68-year-old male who [facility]. He has past medical history for an LA 8 years ago treated at [facility] and [facility], TIA, DVT and pulmonary embolism 5-10 years ago, obstructive sleep apnea with CPAP, hypothyroidism, gastroesophageal reflux disease, hypertension, hyperlipidemia, morbid obesity, peripheral neuropathy and degenerative disc disease of the lumbar spine, gout, benign prostatic hypertrophy diabetes mellitus type 2. Patient states he came in due to weakness he went to the [facility] clinic yesterday because he was urinating a lot and had burning pain with urination. He also has chronic incontinence and urinary retention problems in the past. He was told to come into the hospital for evaluation as he was found to have a temperature 100.9. Patient gives history of having chronic weakness and inability to walk and only transfers from wheelchair to chair with pivoting. He has frequent falls and recently twisted his right ankle and foot and continues to have pain to this area. He states his weakness has been going on since 2010. He also complains of decreased appetite without weight loss. Patient came into [facility] emergency center for evaluation was found to have elevated troponins at 0.039, 0.046 and 0.033, triglycerides 1026, cholesterol 191 and HDL 25. Patient was started on heparin drip, full-strength aspirin and admitted to the selective care unit. Chest x-ray showed no acute findings. Abdominal and pelvic CAT scan with contrast showed numerous renal cysts, calcified globe stones, no dilated ducts. EKG reveals sinus mechanism with no acute ST or T wave abnormalities noted. Current cardiac medications include aspirin 325 mg a day, Plavix 75 mg daily, Coreg 6.25 mg twice daily, Nitrostat, pravastatin 40 mg at bedtime, heparin drip. At the time of my exam: CONSTITUTIONAL: Denies fever. Denies chills. EYES: Denies blurred vision. Denies vision changes. Denies eye pain. EARS, NOSE, MOUTH & THROAT: Denies headache. Denies sore throat. Denies ear pain. CARDIOVASCULAR: Denies chest pain. Denies shortness of breath. Denies orthopnea. Denies PND. Denies palpitations. RESPIRATORY: Denies cough. GASTROINTESTINAL: Denies abdominal pain. Denies diarrhea. Denies constipation. Denies nausea. Denies vomiting. MUSCULOSKELETAL: Complains of pain to his low back and extreme weakness to the lower extremities. INTEGUMENTARY: Denies pruitis. Denies rash. NEUROLOGIC: Denies numbness. Denies tingling. Complains of weakness. PSYCHIATRIC: Denies anxiety. Denies depression. ENDOCRINE: Complains of fatigue. Denies weight change. Denies polydipsia. Denies polyurina. GENITOURINARY: Complains of burning with urination, incontinence and urinary retention. HEMATOLOGIC: Denies history of anemia. Denies bleeding. Blood pressure 148/77 heart rate 75 afebrile maintaining oxygen saturation 95% on 2 L is a cannula. GENERAL: This is a morbidly obese 68-year-old male in no apparent distress at the time of my examination. HEENT: Head is atraumatic, normocephalic. Pupils are equal, round. Sclerae anicteric. Conjunctivae are clear. Mucous membranes of the mouth are somewhat dry. Neck is supple. LUNGS: Clear to auscultation no wheezes, rales or rhonchi. No chest wall tenderness is noted on palpation or with deep breathing. HEART: Regular rate and rhythm without murmurs, rubs or gallops. S1 and S2 heard. ABDOMEN: Morbidly obese Soft, nontender. Bowel sounds are heard. No organomegaly noted. Altman catheter draining clear curly urine. EXTREMITIES: Trace bilateral lower extremity edema and no calf tenderness noted. VASCULAR: dorsalis pedis pulses palpated, no evidence of clubbing. NEUROLOGIC: Patient is awake, alert and oriented x3. Significant lower extremity weakness noted ASSESSMENT Elevated troponins, acute coronary syndrome ruled out. History of coronary artery disease, exact details unavailable to me at this time. Hypertension. Hyperlipidemia. Significant lumbar degenerative disc disease with generalized weakness with previous neurological workup and follow-up with Dr. Quintero. Patient was not deemed a surgical candidate. History of PE and DVT 5-10 years ago. Obstructive sleep apnea on CPAP Diabetes mellitus type 2 with diabetic peripheral neuropathy History of mild stroke in the past, stable no new symptoms. PLAN An acute coronary event has been ruled out. Discontinue heparin drip. Change aspirin 81 mg daily Obtain 2-D echocardiogram and Doppler study to assess cardiac structure and function. Obtain records from [facility] regarding LA 8 years ago. Continue Plavix 75 mg daily, Coreg 6.25 mg twice daily, Nitrostat, pravastatin 40 mg at bedtime. Ongoing medical management. Thank you kindly for this consultation. Nurse Practitioner note has been reviewed, I agree with a documented findings and plan of care. Patient was seen and examined. Past Medical History Past Medical History: CVA/TIA, Diabetes Mellitus, Deep Vein Thrombosis (DVT), GERD/Reflux, Hypertension, Myocardial Infarction (LA), Prostate Disorder, Pulmonary Embolus (PE), Sleep Apnea/CPAP/BIPAP, Thyroid Disorder Additional Past Medical History / Comment(s): Morbid obesity, obstructive sleep apnea uses CPAP-uses O2 at 5 L during night with cpap,SOB,history of peripheral neuropathy severe associated related to diabetes mellitus, gait dysfunction and frequent falls-uses w/c-able to stand to transfer, chronic back pain, gout, BPH , TIA/CVA-loyda arm and leg weakness, previous history of C. diff colitis back in 2010,hypothyroidism,colon polyps Last Myocardial Infarction Date:: 2010 History of Any Multi-Drug Resistant Organisms: None Reported Date of last positivie culture/infection: None MDRO Source:: None Past Surgical History: Hernia Repair Additional Past Surgical History / Comment(s): hiatal hernia repair x 2, umbilical hernia repair,2nd digit rt hand amputated Past Anesthesia/Blood Transfusion Reactions: No Reported Reaction Past Psychological History: Bipolar, Depression, PTSD Additional Psychological History / Comment(s): severe PTSD. pt stated he always feels depressed but currently no thoughts of wanting to harm himself. pt lives with his and 2 pets dogs. has mechanical lift into home. w/c, electric scooter, cpap, o2. has helper come in to care for him when his needs to be away from home. 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 Smoking Status: Never smoker Past Alcohol Use History: None Reported Additional Past Alcohol Use History / Comment(s): Patient is a lifelong nonsmoker. He has used marijuana years ago but none recently. He denies any alcohol use. He lives at home with his and 2 dogs. Patient served in the [employer] in [place] and had a back injury at that time. Past Drug Use History: None Reported - Past Family History Father Family Medical History: Cancer Additional Family Medical History / Comment(s): lung Mother Family Medical History: Cancer Additional Family Medical History / Comment(s): bladder Medications and Allergies Home Medications Medication Instructions Recorded Confirmed Type Allopurinol [Zyloprim] 100 mg PO BID 12/02/14 03/06/18 History Ergocalciferol [Vitamin D2 100,000 unit PO MO 12/02/14 03/06/18 History (DRISDOL)] Finasteride [Proscar] 5 mg PO DAILY 12/02/14 03/06/18 History Insulin Aspart [NovoLOG] 40 units SQ AC-TID 12/02/14 03/06/18 History Levothyroxine Sodium [Synthroid] 50 mcg PO DAILY 12/02/14 03/06/18 History Floris-3 Fatty Acids/Fish Oil [Fish 600 mg PO BID 12/02/14 03/06/18 History Oil 1,000 mg Softgel] Pravastatin Sodium [Pravachol] 40 mg PO HS 12/02/14 03/06/18 History Sertraline [Zoloft] 200 mg PO QAM 12/02/14 03/06/18 History Tamsulosin [Flomax] 0.8 mg PO HS 12/02/14 03/06/18 History Ziprasidone [Geodon] 20 mg PO TID 12/02/14 03/06/18 History carBAMazepine [TEGretol] 200 mg PO TID 12/02/14 03/06/18 History Cyanocobalamin [Vitamin B-12 1,000 mcg SQ QMONTH 09/30/15 03/06/18 History Injection] Clopidogrel Bisulfate [Plavix] 75 mg PO DAILY #20 tab 10/01/15 03/06/18 Rx Carvedilol [Coreg] 6.25 mg PO BID 11/25/16 03/06/18 History Pantoprazole Sodium [Protonix] 40 mg PO BID 11/25/16 03/06/18 History Sennosides/Docusate Sodium [Ana 2 tab PO BID 11/25/16 03/06/18 History Colace] clonazePAM [KlonoPIN] 0.5 mg PO TID #20 12/02/16 03/06/18 Rx Gemfibrozil [Lopid] 600 mg PO BID 12/21/16 03/06/18 History Multivitamins, Thera [Multivitamin 1 tab PO DAILY 12/21/16 03/06/18 History (formulary)] Baclofen [Lioresal] 10 mg PO BID 03/14/17 03/06/18 History Insulin Glargine,Hum.rec.anlog 120 unit SQ HS 03/14/17 03/06/18 History [Lantus Solostar] Ranitidine HCl [Zantac] 300 mg PO HS 07/01/17 03/06/18 History Baclofen [Lioresal] 10 mg PO DAILY PRN 03/06/18 03/06/18 History Baclofen [Lioresal] 20 mg PO HS 03/06/18 03/06/18 History Carboxymethylcellulose Sodium 1 drop BOTH EYES QID 03/06/18 03/06/18 History [Restore Plus] Dextrose Chew [Glucose Chew Tab] 4 gm PO TID 03/06/18 03/06/18 History Loratadine [Claritin] 10 mg PO DAILY 03/06/18 03/06/18 History Miconazole Nitrate [Miconazole 1 applic TOPICAL BID 03/06/18 03/06/18 History Nitrate 2%] Naloxone HCl [Narcan] 4 mg NASAL ONCE PRN 03/06/18 03/06/18 History Polyethylene Glycol 3350 [Clearlax] 17 gm PO DAILY 03/06/18 03/06/18 History Polyvinyl Alcohol 1.4% Soln 1 drop BOTH EYES DAILY PRN 03/06/18 03/06/18 History Pregabalin [Lyrica] 100 mg PO TID 03/06/18 03/06/18 History metFORMIN HCL 1,000 mg PO BID 03/06/18 03/06/18 History Allergies Allergy/AdvReac Type Severity Reaction Status Date / Time aspirin Allergy ABDOMINAL Verified 03/06/18 16:43 DISCOMFORT etodolac [From Lodine] Allergy Unknown Verified 03/06/18 16:43 oxybutynin Allergy Unknown Verified 03/06/18 16:43 Physical Exam Vitals: Vital Signs Temp Pulse Resp BP Pulse Ox 03/08/18 08:00 98.5 F 70 17 154/68 92 L 03/08/18 07:21 18 03/08/18 03:46 97.8 F 73 18 153/72 91 L 03/07/18 23:47 99.2 F 71 18 178/97 94 L 03/07/18 19:56 98.7 F 69 18 176/72 96 11/17/18 14:58 97.7 F 70 18 155/75 97 03/07/18 14:48 75 19 03/07/18 11:44 75 19 163/80 96 Intake and Output 03/07/18 03/08/18 03/08/18 22:59 06:59 14:59 Intake Total 511.915 581.224 Output Total 1000 Balance 511.915 -418.776 Intake: IV 160 280 Heparin Sod,Pork in 0.45% 160 280 NaCl 25,000 unit In 0.45 % NaCl 1 500ml.bag @ 8.3 UNITS/KG/HR 20.02 mls/hr IV .Q24H [facility] Rx#: [id number] Intake, IV Titration 351.915 301.224 Amount Heparin Sod,Pork in 0.45% 351.915 301.224 NaCl 25,000 unit In 0.45 % NaCl 1 500ml.bag @ 8.3 UNITS/KG/HR 20.02 mls/hr IV .Q24H [facility] Rx#: [id number] Output: Urine 1000 Other: Voiding Method Diaper Diaper Diaper Incontinent Incontinent Incontinent # Voids 2 Weight 122 kg Results 03/08/18 03:49 03/08/18 03:49 Coagulation 03/07/18 03/07/18 03/08/18 Range/Units 11:44 20:38 03:49 APTT 30.1 H 31.8 H 37.8 H (22.0-30.0) sec CBC 03/08/18 Range/Units 03:49 WBC 5.6 (3.8-10.6) k/uL RBC 4.01 L (4.30-5.90) m/uL Hgb 11.2 L (13.0-17.5) gm/dL Hct 34.3 L (39.0-53.0) % Plt Count 118 L (150-450) k/uL Comprehensive Metabolic Panel 03/08/18 Range/Units 03:49 Sodium 141 (137-145) mmol/L Potassium 4.3 (3.5-5.1) mmol/L Chloride 105 (98-107) mmol/L Carbon Dioxide 28 (22-30) mmol/L BUN 22 H (9-20) mg/dL Creatinine 1.11 (0.66-1.25) mg/dL Glucose 271 H (74-99) mg/dL Calcium 9.1 (8.4-10.2) mg/dL Current Medications Generic Name Dose Route Start Last Admin Trade Name Freq PRN Reason Stop Dose Admin Acetaminophen 650 mg 03/07/18 14:40 03/07/18 21:26 Tylenol Tab PO 650 mg Q6HR PRN Administration Fever and/ or Pain Allopurinol 100 mg 03/06/18 21:00 03/08/18 08:40 Zyloprim PO 100 mg BID [facility] Administration Artificial Tears 1 drops 03/06/18 22:00 03/08/18 08:40 Artificial Tear Drops BOTH EYES 1 drops QID [facility] Administration Aspirin 325 mg 03/07/18 09:00 03/08/18 08:40 Aspirin PO 325 mg DAILY [facility] Administration Baclofen 10 mg 03/06/18 21:00 03/08/18 08:40 Lioresal PO 10 mg BID [facility] Administration Baclofen 20 mg 03/06/18 21:00 03/07/18 21:24 Lioresal PO 20 mg HS [facility] Administration Carbamazepine 200 mg 03/06/18 22:00 03/08/18 08:40 Tegretol PO 200 mg TID [facility] Administration Carvedilol 6.25 mg 03/07/18 07:30 03/08/18 06:31 Coreg PO 6.25 mg BID-W/MEALS [facility] Administration Clonazepam 0.5 mg 03/06/18 22:00 03/08/18 08:41 Klonopin PO 0.5 mg TID [facility] Administration Clopidogrel Bisulfate 75 mg 03/07/18 09:00 03/08/18 08:41 Plavix PO 75 mg DAILY [facility] Administration Fenofibrate 160 mg 03/06/18 21:00 03/08/18 08:41 Lofibra PO 160 mg BID [facility] Administration Finasteride 5 mg 03/07/18 09:00 03/08/18 08:40 Proscar PO 5 mg DAILY [facility] Administration Heparin Sodium/Sodium Chloride 500 mls @ 20.02 mls/hr 03/06/18 20:15 04:58 25,000 unit/ Sodium Chloride IV 20.3 units/kg/hr .Q24H [facility] 48.98 mls/hr Titration Protocol 8.3 UNITS/KG/HR Insulin Aspart 0 unit 03/06/18 21:00 03/08/18 06:32 Novolog SQ 7 unit ACHS [facility] Administration Protocol Insulin Detemir 120 unit 03/07/18 21:00 03/07/18 21:59 Levemir SQ 120 unit HS [facility] Administration Levothyroxine Sodium 50 mcg 03/07/18 06:30 03/08/18 06:34 Synthroid PO 50 mcg DAILY@0630 [facility] Administration Metformin HCl 1,000 mg 03/06/18 21:00 03/08/18 08:41 Glucophage PO 1,000 mg BID [facility] Administration Nitroglycerin 0.4 mg 03/06/18 20:03 Nitrostat SUBLINGUAL Q5M PRN Chest Pain Pantoprazole Sodium 40 mg 03/06/18 21:00 03/08/18 06:31 Protonix PO 40 mg BID [facility] Administration Pravastatin Sodium 40 mg 03/06/18 22:46 03/06/18 23:14 Pravachol PO 40 mg HS [facility] Administration Pregabalin 100 mg 03/06/18 22:00 03/08/18 08:41 Lyrica PO 100 mg TID [facility] Administration Sertraline HCl 200 mg 03/07/18 09:00 03/08/18 08:41 Zoloft PO 200 mg QAM [facility] Administration Ziprasidone 20 mg 03/06/18 22:00 03/08/18 08:41 Geodon PO 20 mg TID [facility] Administration Intake and Output 03/07/18 03/08/18 03/08/18 22:59 06:59 14:59 Intake Total 511.915 581.224 Output Total 1000 Balance 511.915 -418.776 Intake: IV 160 280 Heparin Sod,Pork in 0.45% 160 280 NaCl 25,000 unit In 0.45 % NaCl 1 500ml.bag @ 8.3 UNITS/KG/HR 20.02 mls/hr IV .Q24H [facility] Rx#: [id number] Intake, IV Titration 351.915 301.224 Amount Heparin Sod,Pork in 0.45% 351.915 301.224 NaCl 25,000 unit In 0.45 % NaCl 1 500ml.bag @ 8.3 UNITS/KG/HR 20.02 mls/hr IV .Q24H [facility] Rx#: [id number] Output: Urine 1000 Other: Voiding Method Diaper Diaper Diaper Incontinent Incontinent Incontinent # Voids 2 Weight 122 kg 03/08/18 03:49 03/08/18 03:49
[2018-03-08 17:03] LABS: Glucose,Whole Blood 305 mg/dL (75-99)
--- NOTE | 2018-03-08 17:17 | XR ---
EXAMINATION TYPE: XR ankle complete RT DATE OF EXAM: 03/08/2018 COMPARISON: None HISTORY: Fall, pain TECHNIQUE: 3 views right ankle FINDINGS: There may be some diffuse soft tissue swelling over the medial malleolus. Small amount curv ilinear calcification is adjacent to the talus inferior to the lateral malleolus. Small avulsion of t he lateral talus should be suspected. Achilles tendon calcaneal heel spur is present. IMPRESSION: 1. Suspected avulsion from the talus inferior to the lateral malleolus. 2. Additional fractures are not identified. 3. Mild soft tissue swelling lateral malleolus.
[2018-03-08 20:36] LABS: Glucose,Whole Blood 372 mg/dL (75-99)
[2018-03-08] MEDS: PRAVASTATIN SODIUM 40 MG TAB PO SCH (22:52)
[2018-03-08] MEDS: INSULIN DETEMIR 100 UNIT/ML 10 ML VIAL SQ SCH (22:52)
[2018-03-09] MEDS: clonazePAM 0.5 MG TAB PO SCH ×4 (00:17→22:07)
[2018-03-09] MEDS: ZIPRASIDONE 20 MG CAP PO SCH ×4 (00:18→22:39)
[2018-03-09] MEDS: ARTIFICIAL TEARS-HYPROMELLOSE DROPS 15 ML BTL BOTH EYES SCH ×5 (00:18→22:09)
[2018-03-09 05:40] LABS: Glucose,Whole Blood 298 mg/dL (75-99)
[2018-03-09 06:56] LABS: Basophils % (A) 0 %; Eosinophils # (A) 0.1 k/uL (0-0.7); Eosinophils % (A) 1 %; HCT 33.8 % (39.0-53.0); HGB 10.9 gm/dL (13.0-17.5); Lymphocytes # (A) 0.9 k/uL (1.0-4.8); Lymphocytes % (A) 17 %; MCH 27.7 pg (25.0-35.0); MCHC 32.2 g/dL (31.0-37.0); MCV 85.8 fL (80.0-100.0); Mean Platelet Volume 7.6; Monocytes # (A) 0.4 k/uL (0-1.0); Monocytes % (A) 7 %; Neutrophils # (A) 3.6 k/uL (1.3-7.7); Neutrophils % (A) 72 %; Platelet Count 123 k/uL (150-450); RBC 3.93 m/uL (4.30-5.90)
[2018-03-09 07:12] LABS: Anion Gap 12 mmol/L; Blood Urea Nitrogen 23 mg/dL (9-20); Calcium 9.3 mg/dL (8.4-10.2); Carbon Dioxide 25 mmol/L (22-30); Chloride 104 mmol/L (98-107); Glucose 297 mg/dL (74-99); Potassium 4.6 mmol/L (3.5-5.1); Sodium 141 mmol/L (137-145)
[2018-03-09] MEDS: INSULIN ASPART 100 UNIT/ML 1 ML 10 ML VIAL SQ SCH ×4 (07:13→22:08)
[2018-03-09] MEDS: CARVEDILOL 6.25 MG TAB PO SCH ×2 (07:14→17:04)
[2018-03-09] MEDS: LEVOTHYROXINE 50 MCG TAB PO SCH (07:14)
[2018-03-09] MEDS: ALLOPURINOL 100 MG TAB PO SCH ×2 (09:43→22:07)
[2018-03-09] MEDS: ASPIRIN 81 MG PO SCH (09:43)
[2018-03-09] MEDS: metFORMIN 500 MG TAB PO SCH ×2 (09:43→22:07)
[2018-03-09] MEDS: FENOFIBRATE 160 MG TAB PO SCH ×2 (09:43→22:07)
[2018-03-09] MEDS: CLOPIDOGREL 75 MG TAB PO SCH (09:43)
[2018-03-09] MEDS: BACLOFEN 10 MG TAB PO SCH ×3 (09:43→22:07)
[2018-03-09] MEDS: PREGABALIN 100 MG CAP PO SCH ×3 (09:43→22:07)
[2018-03-09] MEDS: carBAMazepine 200 MG TAB PO SCH ×3 (09:43→22:07)
[2018-03-09] MEDS: SERTRALINE 100 MG TAB PO SCH (09:43)
[2018-03-09] MEDS: PANTOPRAZOLE 40 MG TABLET PO SCH ×2 (09:43→22:07)
[2018-03-09] MEDS: FINASTERIDE 5 MG TAB PO SCH (09:44)
--- NOTE | 2018-03-09 10:17 | ECHOF ---
Referral Reason:elevated troponins MEASUREMENTS -------- HEIGHT: 180.3 cm WEIGHT: 122.5 kg BP: 171/86 RVIDd: 3.6 cm (< 3.3) IVSd: 1.9 cm (0.6 - 1.1) LVIDd: 4.4 cm (3.9 - 5.3) LVPWd: 1.8 cm (0.6 - 1.1) IVSs: 2.3 cm LVIDs: 3.0 cm LVPWs: 2.3 cm LA Diam: 4.0 cm (2.7 - 3.8) LAESV Index (A-L): 25.93 ml/m Ao Diam: 4.3 cm (2.0 - 3.7) AV Cusp: 1.8 cm (1.5 - 2.6) MV EXCURSION: 15.228 mm (> 18.000) MV EF SLOPE: 18 mm/s (70 - 150) EPSS: 0.9 cm MV E Patricio: 0.97 m/s MV DecT: 277 ms MV A Patricio: 1.19 m/s MV E/A Ratio: 0.81 RAP: 5.00 mmHg RVSP: 25.10 mmHg FINDINGS -------- Sinus rhythm. This was a technically difficult study with suboptimal apical views. The left ventricular size is normal. There is severe concentric left ventricular hypertrophy. Ove rall left ventricular systolic function is normal with, an EF between 55 - 60 %. The right ventricle is mildly enlarged. Normal LA size by volume 22+/-6 ml/m2. The right atrium is normal in size. 3 ml of Lumason was utilized for enhancement of images. There is mild aortic valve sclerosis. Mild mitral annular calcification present. The tricuspid valve appears structurally normal. The pulmonic valve was not well visualized. The aortic root is dilated measuring 4.3cm. Normal inferior vena cava with normal inspiratory collapse consistent with estimated right atrial pre ssure of 5 mmHg. The inferior vena cava is mildly dilated. There is no pericardial effusion. CONCLUSIONS -------- 1. Sinus rhythm. 2. This was a technically difficult study with suboptimal apical views. 3. The left ventricular size is normal. 4. There is severe concentric left ventricular hypertrophy. 5. Overall left ventricular systolic function is normal with, an EF between 55 - 60 %. 6. The right ventricle is mildly enlarged. 7. Normal LA size by volume 22+/-6 ml/m2. 8. The right atrium is normal in size. 9. 3 ml of Lumason was utilized for enhancement of images. 10. There is mild aortic valve sclerosis. 11. Mild mitral annular calcification present. 12. The tricuspid valve appears structurally normal. 13. The pulmonic valve was not well visualized. 14. The aortic root is dilated measuring 4.3cm. 15. Normal inferior vena cava with normal inspiratory collapse consistent with estimated right atrial pressure of 5 mmHg. 16. The inferior vena cava is mildly dilated. 17. There is no pericardial effusion. [employer]: Carly Wilkinson RDCS
[2018-03-09 11:23] LABS: Glucose,Whole Blood 351 mg/dL (75-99)
--- NOTE | 2018-03-09 11:51 | P.PN ---
Subjective Progress Note Date: 03/08/18 Principal diagnosis: UTI/sepsis Elevated troponin rule out non-ST elevation [place] 68-year-old male patient who presented to ED with generalized weakness and possible UTI; workup in ED showed UTI/sepsis and elevated troponin levels; patient was started on IV antibiotics and IV heparin and is admitted to the hospital for sepsis treatment and further evaluation by cardiology 03/08/2018 Patient is seen on follow-up for UTI and elevated troponins; patient continues to deny any complaint of chest pain, nausea or vomiting Patient's vital signs remained stable with a blood pressure of 148/77 pulse 75; O2 saturation 95% on 2 L Labs showing a normal white blood count of 5.6, hemoglobin is 11.2; platelet count is down trending from 135 yesterday to 118; patient has been on IV heparin drip for elevated troponins; we will continue to monitor platelet count closely and DC IV heparin drip if platelet count continues to drop significantly ; await further recommendations from cardiology service to rule out non-ST elevation [place] Patient's blood glucose continued to remain elevated ranging between 271-339; patient remains on Levemir 120 units daily at bedtime along with NovoLog with sliding scale and metformin thousand milligrams twice a day; patient is on consistent carbohydrate diet;we will continue same for now Objective - Vital Signs Vital signs: Vital Signs Temp 98.5 F 03/08/18 08:00 Pulse 75 03/08/18 11:28 Resp 17 03/08/18 11:28 BP 148/77 03/08/18 11:28 Pulse Ox 95 03/08/18 11:28 Intake & Output 03/07/18 03/08/18 03/08/18 18:59 06:59 18:59 Intake Total 789.840 753.299 Output Total 1000 Balance 789.840 -246.701 Weight 122 kg Intake: IV 440 Heparin Sod,Pork in 0.45% 440 NaCl 25,000 unit In 0.45 % NaCl 1 500ml.bag @ 8.3 UNITS/KG/HR 20.02 mls/hr IV .Q24H [facility] Rx#: [id number] Intake, IV Titration 339.840 313.299 Amount Heparin Sod,Pork in 0.45% 339.840 313.299 NaCl 25,000 unit In 0.45 % NaCl 1 500ml.bag @ 8.3 UNITS/KG/HR 20.02 mls/hr IV .Q24H [facility] Rx#: [id number] Oral 450 Output: Urine 1000 Other: Voiding Method Diaper Diaper Diaper Incontinent Incontinent Incontinent # Voids 2 - Exam General appearance: alert, in no apparent distress Head exam: Present: atraumatic, normocephalic, normal inspection Eye exam: Present: normal appearance, PERRL, EOMI. Absent: scleral icterus, conjunctival injection, periorbital swelling Respiratory exam: Present: normal lung sounds bilaterally. Absent: respiratory distress, wheezes, rales, rhonchi, stridor Cardiovascular Exam: Present: regular rate, normal rhythm, normal heart sounds. Absent: systolic murmur, diastolic murmur, rubs, gallop, clicks GI/Abdominal exam: Present: soft, normal bowel sounds. Absent: distended, tenderness, guarding, rebound, rigid Back exam: Present: tenderness. Absent: CVA tenderness (R), CVA tenderness (L) Neurological exam: Present: alert, oriented X3, CN II-XII intact Skin exam: Present: warm, dry, intact, normal color. Absent: rash - Labs CBC & Chem 7: 03/08/18 03:49 03/08/18 03:49 Labs: Abnormal Lab Results - Last 24 Hours (Table) 03/07/18 03/07/18 03/07/18 Range/Units 05:18 11:44 17:21 RBC (4.30-5.90) m/uL Hgb (13.0-17.5) gm/dL Hct (39.0-53.0) % RDW (11.5-15.5) % Plt Count (150-450) k/uL APTT 30.1 H (22.0-30.0) sec BUN (9-20) mg/dL Glucose (74-99) mg/dL POC Glucose (mg/dL) 320 H (75-99) mg/dL Hemoglobin A1c 8.7 H (4.0-6.0) % 03/07/18 03/07/18 03/08/18 Range/Units 20:18 20:38 01:44 RBC (4.30-5.90) m/uL Hgb (13.0-17.5) gm/dL Hct (39.0-53.0) % RDW (11.5-15.5) % Plt Count (150-450) k/uL APTT 31.8 H (22.0-30.0) sec BUN (9-20) mg/dL Glucose (74-99) mg/dL POC Glucose (mg/dL) 324 H 227 H (75-99) mg/dL Hemoglobin A1c (4.0-6.0) % 03/08/18 03/08/18 03/08/18 Range/Units 03:49 03:49 03:49 RBC 4.01 L (4.30-5.90) m/uL Hgb 11.2 L (13.0-17.5) gm/dL Hct 34.3 L (39.0-53.0) % RDW 15.7 H (11.5-15.5) % Plt Count 118 L (150-450) k/uL APTT 37.8 H (22.0-30.0) sec BUN 22 H (9-20) mg/dL Glucose 271 H (74-99) mg/dL POC Glucose (mg/dL) (75-99) mg/dL Hemoglobin A1c (4.0-6.0) % 03/08/18 03/08/18 Range/Units 05:47 11:38 RBC (4.30-5.90) m/uL Hgb (13.0-17.5) gm/dL Hct (39.0-53.0) % RDW (11.5-15.5) % Plt Count (150-450) k/uL APTT (22.0-30.0) sec BUN (9-20) mg/dL Glucose (74-99) mg/dL POC Glucose (mg/dL) 291 H 301 H (75-99) mg/dL Hemoglobin A1c (4.0-6.0) % Microbiology - Last 24 Hours (Table) 03/06/18 16:48 Blood Culture Gram Stain - Preliminary Blood Blood Culture - Preliminary 03/06/18 16:48 Blood Culture - Preliminary Blood Assessment and Plan Assessment: 1. Elevated troponin rule out non-ST elevation - Patient is started on IV heparin drip per protocol - We will monitor EKG closely and trend troponin - Cardiology is consulted for further recommendations 2. UTI/sepsis - Patient is given IV Rocephin in ED; we will continue same for now - Blood cultures and urine culture has been ordered; further recommendations according to culture results 3. Hyperglycemia; diabetes mellitus type 2 - Patient takes metformin 1000 mg twice a day; we will hold oral hypoglycemics on in the hospital - We will monitor Accu-Cheks before meals and at bedtime and insulin sliding scale 4. His coronary artery disease; status post [place] in past; as above - We will continue patient on aspirin, statins, beta [place] in form of Coreg - Patient remains on IV heparin to further recommendations from cardiology service 5. Hypothyroidism; continue with home dose of levothyroxine 50 MCG daily 6. Morbid obesity/obstructive sleep apnea; patient uses CPAP at home with O2 at 5 L during the night 7. DVT prophylaxis; systemic anticoagulation with IV heparin CODE STATUS; full code Time with Patient: Greater than 30
--- NOTE | 2018-03-09 15:48 | P.PN ---
Subjective Progress Note Date: 03/09/18 This is a 68-year-old male who follows with the [facility] clinic and [facility]. He has past medical history for an SD 8 years ago treated at [facility] and [facility], TIA, DVT and pulmonary embolism 5-10 years ago, obstructive sleep apnea with CPAP, hypothyroidism, gastroesophageal reflux disease, hypertension, hyperlipidemia, morbid obesity, peripheral neuropathy and degenerative disc disease of the lumbar spine, gout, benign prostatic hypertrophy diabetes mellitus type 2. Patient states he came in due to weakness he went to the [facility] clinic because he was urinating a lot and had burning pain with urination. He also has chronic incontinence and urinary retention problems in the past. He was told to come into the hospital for evaluation as he was found to have a temperature 100.9. Patient gives history of having chronic weakness and inability to walk and only transfers from wheelchair to chair with pivoting. He has frequent falls and recently twisted his right ankle and foot and continues to have pain to this area. He states his weakness has been going on since 2010. He also complains of decreased appetite without weight loss. Patient came into [facility] emergency center for evaluation was found to have elevated troponins at 0.039, 0.046 and 0.033, triglycerides 1026, cholesterol 191 and HDL 25. Patient was started on heparin drip, full-strength aspirin and admitted to the selective care unit. 03/09/2018 Patient was seen and examined this morning, there was abnormality noted in the troponin, not consistent with acute coronary syndrome, we do recommend however that the patient have just test performed as an outpatient. Blood pressure 154/ 80 with a heart rate in the 60s, 96% on 2 L of oxygen. Objective - Vital Signs Vital signs: Vital Signs Temp 98.1 F 03/09/18 08:00 Pulse 68 03/09/18 12:00 Resp 16 03/09/18 12:00 BP 155/84 03/09/18 12:00 Pulse Ox 96 03/09/18 12:00 Intake & Output 03/08/18 03/09/18 03/09/18 18:59 06:59 18:59 Intake Total 410 180 480 Output Total 2200 550 Balance Weight 122.5 kg Intake: Oral 410 180 480 Output: Urine 2200 550 Other: Voiding Method Diaper Diaper Diaper Incontinent Incontinent Incontinent # Voids 3 - Exam Blood pressure 148/77 heart rate 75 afebrile maintaining oxygen saturation 95% on 2 L is a cannula. GENERAL: This is a morbidly obese 68-year-old male in no apparent distress at the time of my examination. HEENT: Head is atraumatic, normocephalic. Pupils are equal, round. Sclerae anicteric. Conjunctivae are clear. Mucous membranes of the mouth are somewhat dry. Neck is supple. LUNGS: Clear to auscultation no wheezes, rales or rhonchi. No chest wall tenderness is noted on palpation or with deep breathing. HEART: Regular rate and rhythm without murmurs, rubs or gallops. S1 and S2 heard. ABDOMEN: Morbidly obese Soft, nontender. Bowel sounds are heard. No organomegaly noted. Altman catheter draining clear curly urine. EXTREMITIES: Trace bilateral lower extremity edema and no calf tenderness noted. VASCULAR: dorsalis pedis pulses palpated, no evidence of clubbing. NEUROLOGIC: Patient is awake, alert and oriented x3. Significant lower extremity weakness noted - Labs CBC & Chem 7: 03/09/18 06:21 03/09/18 06:21 Labs: Abnormal Lab Results - Last 24 Hours (Table) 03/08/18 03/08/18 03/09/18 Range/Units 17:00 20:35 05:39 RBC (4.30-5.90) m/uL Hgb (13.0-17.5) gm/dL Hct (39.0-53.0) % RDW (11.5-15.5) % Plt Count (150-450) k/uL Lymphocytes # (1.0-4.8) k/uL BUN (9-20) mg/dL Glucose (74-99) mg/dL POC Glucose (mg/dL) 305 H 372 H 298 H (75-99) mg/dL 03/09/18 03/09/18 03/09/18 Range/Units 06:21 06:21 11:20 RBC 3.93 L (4.30-5.90) m/uL Hgb 10.9 L (13.0-17.5) gm/dL Hct 33.8 L (39.0-53.0) % RDW 16.0 H (11.5-15.5) % Plt Count 123 L (150-450) k/uL Lymphocytes # 0.9 L (1.0-4.8) k/uL BUN 23 H (9-20) mg/dL Glucose 297 H (74-99) mg/dL POC Glucose (mg/dL) 351 H (75-99) mg/dL Microbiology - Last 24 Hours (Table) 03/07/18 11:44 Blood Culture - Preliminary Blood No Growth after 48 hours 03/06/18 16:48 Blood Culture Gram Stain - Preliminary Blood Blood Culture - Preliminary Clostridium species 03/06/18 16:48 Blood Culture - Final Blood Assessment and Plan Plan: Assessment and plan #1 Elevated troponins, consistent with acute coronary syndrome, we would recommend patient have outpatient stress testing done #2 Hypertension. #3 Hyperlipidemia. #4 Significant lumbar degenerative disc disease with generalized weakness with previous neurological workup and follow-up with Dr. Quintero. Patient was not deemed a surgical candidate. #5 History of PE and DVT 5-10 years ago. #6 Obstructive sleep apnea on CPAP #7 Diabetes mellitus type 2 with diabetic peripheral neuropathy #8 History of mild stroke in the past, stable no new symptoms. Plan From cardiology's perspective, we will follow this patient along with you now on an as-needed basis only, please don't hesitate to call with any questions. DNP note has been reviewed, I agree with a documented findings and plan of care. Patient was seen and examined.
[2018-03-09 16:36] LABS: Glucose,Whole Blood 294 mg/dL (75-99)
--- NOTE | 2018-03-09 17:18 | P.PN ---
Subjective Progress Note Date: 03/09/18 Principal diagnosis: UTI/sepsis Elevated troponin rule out non-ST elevation PA 68-year-old male patient who presented to ED with generalized weakness and possible UTI; workup in ED showed UTI/sepsis and elevated troponin levels; patient was started on IV antibiotics and IV heparin and is admitted to the hospital for sepsis treatment and further evaluation by cardiology 03/08/2018 Patient is seen on follow-up for UTI and elevated troponins; patient continues to deny any complaint of chest pain, nausea or vomiting Patient's vital signs remained stable with a blood pressure of 148/77 pulse 75; O2 saturation 95% on 2 L Labs showing a normal white blood count of 5.6, hemoglobin is 11.2; platelet count is down trending from 135 yesterday to 118; patient has been on IV heparin drip for elevated troponins; we will continue to monitor platelet count closely and DC IV heparin drip if platelet count continues to drop significantly ; await further recommendations from cardiology service to rule out non-ST elevation PA Patient's blood glucose continued to remain elevated ranging between 271-339; patient remains on Levemir 120 units daily at bedtime along with NovoLog with sliding scale and metformin thousand milligrams twice a day; patient is on consistent carbohydrate diet;we will continue same for now 03/09/2018 Patient remains hemodynamically stable; resting comfortably in bed We will signs are stable with a normal temperature pulse rate of 71, blood pressure 155/70 and O2 saturation of 95% on room air Laboratory results reviewed with patient showing a normal white blood count with a hemoglobin drop to 10.9 from 11.2 yesterday; we will monitor H&H daily along with stool occult blood and start patient on PPI for GI prophylaxis patient's microbiology's positive for Clostridium species in one of 2 blood cultures; patient has no signs of infection clinically; we will continue to monitor and consult ID for further recommendations Blood sugars remain elevated; patient is on a very large dose of Levemir; we will continue to monitor and possible IV insulin drip while in the hospital if blood sugars remain elevated We will monitor renal function and electrolytes along with CBC tomorrow morning Objective - Vital Signs Vital signs: Vital Signs Temp 98.1 F 03/09/18 08:00 Pulse 65 03/09/18 08:00 Resp 16 03/09/18 11:45 BP 152/68 03/09/18 08:00 Pulse Ox 94 L 03/09/18 08:00 Intake & Output 03/08/18 03/09/18 03/09/18 18:59 06:59 18:59 Intake Total 410 180 240 Output Total 2200 Balance 410 -2020 240 Weight 122.5 kg Intake: Oral 410 180 240 Output: Urine 2200 Other: Voiding Method Diaper Diaper Diaper Incontinent Incontinent Incontinent # Voids 3 - Exam General appearance: alert, in no apparent distress Head exam: Present: atraumatic, normocephalic, normal inspection Eye exam: Present: normal appearance, PERRL, EOMI. Absent: scleral icterus, conjunctival injection, periorbital swelling Respiratory exam: Present: normal lung sounds bilaterally. Absent: respiratory distress, wheezes, rales, rhonchi, stridor Cardiovascular Exam: Present: regular rate, normal rhythm, normal heart sounds. Absent: systolic murmur, diastolic murmur, rubs, gallop, clicks GI/Abdominal exam: Present: soft, normal bowel sounds. Absent: distended, tenderness, guarding, rebound, rigid Back exam: Present: tenderness. Absent: CVA tenderness (R), CVA tenderness (L) Neurological exam: Present: alert, oriented X3, CN II-XII intact Skin exam: Present: warm, dry, intact, normal color. Absent: rash - Labs CBC & Chem 7: 03/09/18 06:21 03/09/18 06:21 Labs: Abnormal Lab Results - Last 24 Hours (Table) 03/08/18 03/08/18 03/09/18 Range/Units 17:00 20:35 05:39 RBC (4.30-5.90) m/uL Hgb (13.0-17.5) gm/dL Hct (39.0-53.0) % RDW (11.5-15.5) % Plt Count (150-450) k/uL Lymphocytes # (1.0-4.8) k/uL BUN (9-20) mg/dL Glucose (74-99) mg/dL POC Glucose (mg/dL) 305 H 372 H 298 H (75-99) mg/dL 03/09/18 03/09/18 03/09/18 Range/Units 06:21 06:21 11:20 RBC 3.93 L (4.30-5.90) m/uL Hgb 10.9 L (13.0-17.5) gm/dL Hct 33.8 L (39.0-53.0) % RDW 16.0 H (11.5-15.5) % Plt Count 123 L (150-450) k/uL Lymphocytes # 0.9 L (1.0-4.8) k/uL BUN 23 H (9-20) mg/dL Glucose 297 H (74-99) mg/dL POC Glucose (mg/dL) 351 H (75-99) mg/dL Microbiology - Last 24 Hours (Table) 03/06/18 16:48 Blood Culture Gram Stain - Preliminary Blood Blood Culture - Preliminary Clostridium species 03/06/18 16:48 Blood Culture - Final Blood 03/07/18 11:44 Blood Culture - Preliminary Blood No Growth after 24 hours Assessment and Plan Assessment: 1. Elevated troponin rule out non-ST elevation - Patient is started on IV heparin drip per protocol - We will monitor EKG closely and trend troponin - Cardiology is consulted for further recommendations 2. UTI/sepsis - Patient is given IV Rocephin in ED; we will continue same for now - Blood cultures and urine culture has been ordered; further recommendations according to culture results 3. Hyperglycemia; diabetes mellitus type 2 - Patient takes metformin 1000 mg twice a day; we will hold oral hypoglycemics on in the hospital - We will monitor Accu-Cheks before meals and at bedtime and insulin sliding scale 4. His coronary artery disease; status post PA in past; as above - We will continue patient on aspirin, statins, beta ph[place] in form of Coreg - Patient remains on IV heparin to further recommendations from cardiology service 5. Hypothyroidism; continue with home dose of levothyroxine 50 MCG daily 6. Morbid obesity/obstructive sleep apnea; patient uses CPAP at home with O2 at 5 L during the night 7. DVT prophylaxis; systemic anticoagulation with IV heparin CODE STATUS; full code Time with Patient: Greater than 30
[2018-03-09] MEDS: IOPAMIDOL-300 CONTRAST 30 ML VIAL (ORAL USE) PO PRN ×2 (19:52→20:35)
[2018-03-09 20:55] LABS: Glucose,Whole Blood 328 mg/dL (75-99)
[2018-03-09] MEDS: metroNIDAZOLE 500 MG TAB PO SCH (22:07)
[2018-03-09] MEDS: PRAVASTATIN SODIUM 40 MG TAB PO SCH (22:07)
--- NOTE | 2018-03-09 22:18 | CT ---
EXAMINATION TYPE: CT abdomen pelvis wo con DATE OF EXAM: 03/09/2018 COMPARISON: 03/06/2018 HISTORY: abdominal pain CT DLP: 1274.4 mGycm Automated exposure control for dose reduction was used. TECHNIQUE: Helical acquisition of images was performed from the lung bases through the pelvis. FINDINGS: There is minimal atelectasis at the left lung base. There is no pericardial effusion. Stomach appears normal. Liver shows no focal defect. The bile ducts are not dilated. There are multiple small calcif ied gallstones. Gallbladder is not dilated. Spleen appears normal. There is no pancreatic mass. There is no adrenal mass. There are multiple bilateral renal cortical cysts that measure up to 6 cm. There is no hydronephrosis. Ureters are not dilated. I see no intestinal wall thickening. There are no dil ated loops. There is no retroperitoneal adenopathy. There is no mesenteric edema or adenopathy. There is no sign of free air. There is no ascites. Bladder distends smoothly. There is no inguinal hernia. There is no free fluid in the pelvis. There are some spondylotic changes in the lumbar spine. There is no compression fracture. There is thinning of the anterior abdominal wall with previous apparent h ernia surgery. IMPRESSION: MULTIPLE SMALL CALCIFIED GALLSTONES. LARGE RENAL CORTICAL CYSTS. NO EVIDENCE OF RENAL OBSTRUCTION. NO ADVERSE CHANGE COMPARED TO LAST EXAM.
[2018-03-09] MEDS: AMPICILLIN-SULBACTAM 3 GM in SODIUM CHLORIDE 0.9% 100 ML IVPB SCH (22:48)
[2018-03-10] MEDS: AMPICILLIN-SULBACTAM 3 GM in SODIUM CHLORIDE 0.9% 100 ML IVPB SCH ×4 (05:00→23:39)
[2018-03-10] MEDS: LEVOTHYROXINE 50 MCG TAB PO SCH (06:27)
[2018-03-10] MEDS: CARVEDILOL 6.25 MG TAB PO SCH ×2 (06:28→17:10)
[2018-03-10 06:31] LABS: Glucose,Whole Blood 323 mg/dL (75-99)
[2018-03-10] MEDS: INSULIN ASPART 100 UNIT/ML 1 ML 10 ML VIAL SQ SCH ×4 (06:33→21:34)
[2018-03-10 06:52] LABS: Anion Gap 8 mmol/L; Basophils % (A) 1 %; Blood Urea Nitrogen 28 mg/dL (9-20); Calcium 9.7 mg/dL (8.4-10.2); Carbon Dioxide 29 mmol/L (22-30); Chloride 102 mmol/L (98-107); Eosinophils # (A) 0.1 k/uL (0-0.7); Eosinophils % (A) 1 %; Glucose 296 mg/dL (74-99); HCT 33.9 % (39.0-53.0); HGB 11.1 gm/dL (13.0-17.5); Lymphocytes # (A) 1.1 k/uL (1.0-4.8); Lymphocytes % (A) 22 %; MCH 27.9 pg (25.0-35.0); MCHC 32.9 g/dL (31.0-37.0); MCV 84.9 fL (80.0-100.0); Mean Platelet Volume 7.8; Monocytes # (A) 0.3 k/uL (0-1.0); Monocytes % (A) 6 %; Neutrophils # (A) 3.5 k/uL (1.3-7.7); Neutrophils % (A) 68 %; Platelet Count 133 k/uL (150-450); Potassium 4.8 mmol/L (3.5-5.1); RBC 3.99 m/uL (4.30-5.90); RDW 15.9 % (11.5-15.5); Sodium 139 mmol/L (137-145); WBC 5.1 k/uL (3.8-10.6)
--- NOTE | 2018-03-10 07:22 | CONS ---
CONSULTATION DATE OF SERVICE: 03/09/2018 REASON FOR CONSULTATION: Bacteremia. HISTORY OF PRESENT ILLNESS: The patient is a 68-year-old male who was sent to the ER on 03/06/2018 from the [place] [facility] where the patient did have a fever of 104 degrees Fahrenheit. The patient presented to the clinic here with chief complaints of not feeling well, having no energy, unable to get up and move around. The patient also complaining of some lower abdominal pain and having more dark and concentrated urine with concern for possible UTI. However, the patient denies having any nausea, no vomiting, no chest pain, shortness of breath or cough. No constipation or any diarrhea. The patient did have a CT of the abdomen and pelvis with IV contrast which did not show any acute findings. His UA was negative. The patient did have another fever of 100.8 on the , but no fever since then. Blood culture that was drawn from the is showing clostridial species that prompted this infectious disease consultation for recommendation regarding antibiotic therapy. The patient's symptom remains to be generalized weakness, no energy. Currently, no significant abdominal pain, nausea, vomiting, or diarrhea. No URI symptoms. Workup so far did include white count that was elevated at 11.5 is down to 5.0. His UA has been negative. Lactic acid was elevated at 3.3 on admission down to 1.6 and patient did not have significant hypertension on presentation. REVIEW OF SYSTEMS: Positive points have been mentioned in the HPI. The rest of system has been negative. PAST MEDICAL HISTORY: CVA, TIA, diabetes mellitus, DVT, gastroesophageal reflux disease, hypertension, AK, history of prostate disorder, PE, hypothyroidism, morbid obesity, sleep apnea. PAST SURGICAL HISTORY: Hernia repair x2, umbilical hernia repair, second digit right hand amputated. PAST PSYCHOLOGICAL HISTORY: Bipolar depression, PTSD. SOCIAL HISTORY: No history of smoking, drinking, or drug use. FAMILY HISTORY: Father history of lung cancer. Mother history of breast cancer. ALLERGIES: Allergies to ASPIRIN, ETODOLAC, OXYBUTYNIN. MEDICATION: Medications include the patient is currently on Tylenol, Zyloprim, Unasyn 3 grams q.6, aspirin, baclofen, Tegretol, Coreg, Klonopin, Plavix, fenofibrate, Proscar, NovoLog, Levemir, Synthroid, Glucophage, Nitrostat, Protonix, Pravachol, Lyrica. PHYSICAL EXAMINATION: On examination, blood pressure 155/70 with a pulse of 71, temperature of 98. He is 95% 2 L nasal cannula. General description is an elderly male up in the bed in no distress. No tachypnea or accessory muscle of respiration use. HEENT examination shows slight pallor. No scleral icterus. Oral mucous membranes is dry. No pharyngeal erythema or thrush. NECK: Trachea is central. No thyromegaly. LUNGS: Unlabored breathing, clear to auscultation anteriorly. No wheeze or crackle. HEART: S1, S2. Regular rate and rhythm. ABDOMEN: Soft, no tenderness. No guarding or rigidity. No organomegaly. EXTREMITIES: No edema of feet. SKIN EXAMINATION: No rash or mass palpable. NEUROLOGICAL: Patient is awake, alert, oriented x3. Mood and affect normal. LABS: Hemoglobin is 10.9, white count 5.0, on admission white count was 11.5 with a BUN of 23, creatinine 0.96. Electrolytes have been normal. Lactic acid was elevated on admission. Urine has been negative. Blood culture with Clostridium species. DIAGNOSTIC IMPRESSION AND PLAN: Patient admitted to the hospital with a fever in this patient whose main symptom has been unable to urinate and dark urine and concern for possible urinary tract infection in a patient did have elevated lactic acid, now with evidence of Clostridium bacteremia which is usually of a gut origin. However, initial CT was done with IV contrast only that will the sensitivity of that testing. PLAN: 1. Blood cultures has been repeated to document clearance of bacteremia. 2. We will obtain a CT of the abdomen and pelvis with oral contrast to better define the intraabdominal organs, especially colon. 3. Patient was started empirically on Unasyn 3 grams q.6 and Flagyl 500 p.o. q.8. 4. We will follow on his clinical condition as well as cultures to further adjust medication if needed. Thank you for this consultation. Will follow this patient along with you. MMODL / IJN: [id number] /
[2018-03-10] MEDS: metroNIDAZOLE 500 MG TAB PO SCH ×3 (09:41→21:25)
[2018-03-10] MEDS: PANTOPRAZOLE 40 MG TABLET PO SCH ×2 (09:41→21:25)
[2018-03-10] MEDS: carBAMazepine 200 MG TAB PO SCH ×3 (09:41→21:25)
[2018-03-10] MEDS: PREGABALIN 100 MG CAP PO SCH ×3 (09:41→21:26)
[2018-03-10] MEDS: BACLOFEN 10 MG TAB PO SCH ×3 (09:41→21:25)
[2018-03-10] MEDS: metFORMIN 500 MG TAB PO SCH ×2 (09:41→21:25)
[2018-03-10] MEDS: ALLOPURINOL 100 MG TAB PO SCH ×2 (09:41→21:25)
[2018-03-10] MEDS: FENOFIBRATE 160 MG TAB PO SCH ×2 (09:41→21:25)
[2018-03-10] MEDS: ASPIRIN 81 MG PO SCH (09:41)
[2018-03-10] MEDS: SERTRALINE 100 MG TAB PO SCH (09:42)
[2018-03-10] MEDS: ARTIFICIAL TEARS-HYPROMELLOSE DROPS 15 ML BTL BOTH EYES SCH ×4 (09:42→21:36)
[2018-03-10] MEDS: clonazePAM 0.5 MG TAB PO SCH ×3 (09:42→21:25)
[2018-03-10] MEDS: FINASTERIDE 5 MG TAB PO SCH (09:42)
[2018-03-10] MEDS: ZIPRASIDONE 20 MG CAP PO SCH ×3 (09:42→21:26)
[2018-03-10 11:27] LABS: Glucose,Whole Blood 368 mg/dL (75-99)
[2018-03-10] MEDS: CLOPIDOGREL 75 MG TAB PO SCH (13:18)
[2018-03-10 16:33] LABS: Glucose,Whole Blood 317 mg/dL (75-99)
[2018-03-10] MEDS: ACETAMINOPHEN TAB 325 MG TAB PO PRN (17:10)
[2018-03-10 20:56] LABS: Glucose,Whole Blood 328 mg/dL (75-99)
[2018-03-10] MEDS: PRAVASTATIN SODIUM 40 MG TAB PO SCH (21:25)
[2018-03-10] MEDS: INSULIN DETEMIR 100 UNIT/ML 10 ML VIAL SQ SCH (21:26)
--- NOTE | 2018-03-10 23:13 | PN ---
PROGRESS NOTE DATE OF SERVICE: 03/10/2018. REASON FOR FOLLOWUP: Clostridium bacteremia. INTERVAL HISTORY: The patient is afebrile, has been breathing comfortably. Denies significant chest pain. Minimal shortness of breath. Occasional cough. Denies any abdominal pain. No diarrhea. No burning or frequency of urine. EXAMINATION: Blood pressure 130/77, with a pulse of 72, temperature 98.4. He is 96% on room air. GENERAL DESCRIPTION: An elderly male up in the bed in no distress. RESPIRATORY: Unlabored breathing with decreased breath sounds at bases. No wheeze. HEART: S1, S2. Regular rate and rhythm. ABDOMEN: Soft. LABS: Hemoglobin is 11.1, white count 5.1. BUN of 28, creatinine 0.93. DIAGNOSTIC IMPRESSION AND PLAN: Patient with clostridium bacterium, positive blood cultures on admission. He was admitted to the hospital with a fever, however, no significant abdominal pain was noticed. CT of the abdomen and pelvis did not show any evidence of acute diverticulitis or bowel inflammation. He is currently on Unasyn and Flagyl, which will be continued. Will follow up blood culture. Finish therapy with oral antibiotics. Continue supportive care. MMODL / IJN: [id number] /
[2018-03-11] MEDS: ACETAMINOPHEN TAB 325 MG TAB PO PRN ×2 (02:13→09:13)
[2018-03-11] MEDS: AMPICILLIN-SULBACTAM 3 GM in SODIUM CHLORIDE 0.9% 100 ML IVPB SCH ×3 (05:14→17:32)
[2018-03-11] MEDS: LEVOTHYROXINE 50 MCG TAB PO SCH (05:22)
[2018-03-11 05:53] LABS: Glucose,Whole Blood 332 mg/dL (75-99)
[2018-03-11] MEDS: INSULIN ASPART 100 UNIT/ML 1 ML 10 ML VIAL SQ SCH ×5 (06:26→20:43)
[2018-03-11] MEDS: CARVEDILOL 6.25 MG TAB PO SCH ×2 (06:26→17:32)
[2018-03-11] MEDS: clonazePAM 0.5 MG TAB PO SCH ×3 (09:12→21:40)
[2018-03-11] MEDS: PREGABALIN 100 MG CAP PO SCH ×3 (09:13→21:40)
[2018-03-11] MEDS: FENOFIBRATE 160 MG TAB PO SCH ×2 (09:14→20:36)
[2018-03-11] MEDS: metFORMIN 500 MG TAB PO SCH ×2 (09:14→20:43)
[2018-03-11] MEDS: ASPIRIN 81 MG PO SCH (09:14)
[2018-03-11] MEDS: CLOPIDOGREL 75 MG TAB PO SCH (09:14)
[2018-03-11] MEDS: PANTOPRAZOLE 40 MG TABLET PO SCH ×2 (09:14→20:36)
[2018-03-11] MEDS: metroNIDAZOLE 500 MG TAB PO SCH ×3 (09:14→21:40)
[2018-03-11] MEDS: carBAMazepine 200 MG TAB PO SCH ×3 (09:14→21:40)
[2018-03-11] MEDS: SERTRALINE 100 MG TAB PO SCH (09:14)
[2018-03-11] MEDS: BACLOFEN 10 MG TAB PO SCH ×3 (09:15→20:43)
[2018-03-11] MEDS: ALLOPURINOL 100 MG TAB PO SCH ×2 (09:15→20:36)
[2018-03-11] MEDS: FINASTERIDE 5 MG TAB PO SCH (09:15)
[2018-03-11] MEDS: ZIPRASIDONE 20 MG CAP PO SCH ×3 (09:17→21:43)
[2018-03-11] MEDS: ARTIFICIAL TEARS-HYPROMELLOSE DROPS 15 ML BTL BOTH EYES SCH ×4 (09:17→21:40)
[2018-03-11] MEDS ORDERED: INSULIN ASPART 100 UNIT/ML 1 ML 10 ML VIAL SQ ONE (09:40)
--- NOTE | 2018-03-11 09:44 | P.PN ---
Subjective Progress Note Date: 03/10/18 Progress note being dictated for Dr. Das Interval history:68-year-old male patient who presented to ED with generalized weakness and possible UTI; workup in ED showed UTI/sepsis and elevated troponin levels; patient was started on IV antibiotics and IV heparin and is admitted to the hospital for sepsis treatment and further evaluation by cardiology 03/08/2018 Patient is seen on follow-up for UTI and elevated troponins; patient continues to deny any complaint of chest pain, nausea or vomiting Patient's vital signs remained stable with a blood pressure of 148/77 pulse 75; O2 saturation 95% on 2 L Labs showing a normal white blood count of 5.6, hemoglobin is 11.2; platelet count is down trending from 135 yesterday to 118; patient has been on IV heparin drip for elevated troponins; we will continue to monitor platelet count closely and DC IV heparin drip if platelet count continues to drop significantly ; await further recommendations from cardiology service to rule out non-ST elevation RI Patient's blood glucose continued to remain elevated ranging between 271-339; patient remains on Levemir 120 units daily at bedtime along with NovoLog with sliding scale and metformin thousand milligrams twice a day; patient is on consistent carbohydrate diet;we will continue same for now 03/09/2018 Patient remains hemodynamically stable; resting comfortably in bed We will signs are stable with a normal temperature pulse rate of 71, blood pressure 155/70 and O2 saturation of 95% on room air Laboratory results reviewed with patient showing a normal white blood count with a hemoglobin drop to 10.9 from 11.2 yesterday; we will monitor H&H daily along with stool occult blood and start patient on PPI for GI prophylaxis patient's microbiology's positive for Clostridium species in one of 2 blood cultures; patient has no signs of infection clinically; we will continue to monitor and consult ID for further recommendations Blood sugars remain elevated; patient is on a very large dose of Levemir; we will continue to monitor and possible IV insulin drip while in the hospital if blood sugars remain elevated We will monitor renal function and electrolytes along with CBC tomorrow morning 03/10/2018 maintained on Unasyn and Flagyl . No nausea vomiting or diarrhea .Denies abdominal pain . Denies urinary symptoms, no urinary frequency or burning. CT of the abdomen and pelvis did not show any evidence of acute diverticulitis or bowel inflammation. Blood cultures pending. Afebrile. Hyperglycemic Objective - Vital Signs Vital signs: Vital Signs Temp 98.4 F 03/10/18 08:00 Pulse 64 03/10/18 16:00 Resp 16 03/10/18 16:00 BP 149/74 03/10/18 16:00 Pulse Ox 91 L 03/10/18 16:00 Intake & Output 03/10/18 03/10/18 03/11/18 06:59 18:59 06:59 Intake Total 1340 880 Output Total 500 Balance 1340 380 Weight 119 kg Intake: Intake, IV Titration 100 Amount Ampicillin-Sulbactam 3 gm 100 In Sodium Chloride 0.9% 100 ml @ 200 mls/hr IVPB Q6HR [facility] Rx#:[id number] Oral 1240 880 Output: Urine 500 Other: Voiding Method Diaper Diaper Incontinent Incontinent # Voids 2 1 # Bowel Movements 2 - Exam General appearance: alert, in no apparent distress Head exam: Present: atraumatic, normocephalic, normal inspection Eye exam: Present: normal appearance, PERRL, EOMI. Absent: scleral icterus, conjunctival injection, periorbital swelling Respiratory exam: Present: Diminished bilateral bases. Absent: respiratory distress, wheezes, rales, rhonchi, stridor Cardiovascular Exam: Present: regular rate, normal rhythm, normal heart sounds. Absent: systolic murmur, diastolic murmur, rubs, gallop, clicks GI/Abdominal exam: Present: soft, normal bowel sounds. Absent: distended, tenderness, guarding, rebound, rigid Back exam: Present: tenderness. Absent: CVA tenderness (R), CVA tenderness (L) Neurological exam: Present: alert, oriented X3, CN II-XII intact Skin exam: Present: warm, dry, intact, normal color. Absent: rash Microbiology 03/09/18 20:29 Blood Blood Culture - Preliminary No Growth after 24 hours 03/07/18 11:44 Blood Blood Culture - Preliminary No Growth after 72 hours 03/06/18 16:48 Blood Blood Culture Gram Stain - Final 03/06/18 16:48 Blood Blood Culture - Final Clostridium perfringens 03/06/18 16:48 Blood Blood Culture - Final - Labs CBC & Chem 7: 03/10/18 05:54 03/10/18 05:54 Labs: Abnormal Lab Results - Last 24 Hours (Table) 03/09/18 03/10/18 03/10/18 Range/Units 20:54 05:54 05:54 RBC 3.99 L (4.30-5.90) m/uL Hgb 11.1 L (13.0-17.5) gm/dL Hct 33.9 L (39.0-53.0) % RDW 15.9 H (11.5-15.5) % Plt Count 133 L (150-450) k/uL BUN 28 H (9-20) mg/dL Glucose 296 H (74-99) mg/dL POC Glucose (mg/dL) 328 H (75-99) mg/dL 03/10/18 03/10/18 03/10/18 Range/Units 06:29 11:25 16:32 RBC (4.30-5.90) m/uL Hgb (13.0-17.5) gm/dL Hct (39.0-53.0) % RDW (11.5-15.5) % Plt Count (150-450) k/uL BUN (9-20) mg/dL Glucose (74-99) mg/dL POC Glucose (mg/dL) 323 H 368 H 317 H (75-99) mg/dL Microbiology - Last 24 Hours (Table) 03/07/18 11:44 Blood Culture - Preliminary Blood No Growth after 72 hours 03/06/18 16:48 Blood Culture Gram Stain - Final Blood Blood Culture - Final Clostridium perfringens Assessment and Plan Assessment: -Elevated troponin, rule out non-STEMI -Sepsis secondary to Acute UTI -Diabetes mellitus type 2, hyperglycemia -CAD, history of RI -Hypothyroidism -Morbid obesity, BMI 36.4 -Obstructive sleep apnea uses CPAP at home,with O2 at 5 L during the night Plan: Continue on current medication regime ,monitoring and symptomatic treatment. Antibiotics as per infectious disease. Final blood culture results pending. Pre-meal insulin added to med regime. Close monitoring of Accu- Cheks. Discharge planning in progress for tomorrow to [facility]. The impression and plan of care has been dictated as directed. : I performed a history and examination of this patient, discussed the same with the dictator. I agree with the dictator's note ,documented as a scribe. Any additional findings or plans will be noted.
[2018-03-11 11:55] LABS: Glucose,Whole Blood 360 mg/dL (75-99)
[2018-03-11] MEDS ORDERED: INSULIN ASPART 100 UNIT/ML 1 ML 10 ML VIAL SQ SCH (12:30)
--- NOTE | 2018-03-11 14:08 | PN ---
PROGRESS NOTE DATE OF SERVICE: 03/11/2018 REASON FOR FOLLOWUP: Clostridium perfringens positive blood culture. INTERVAL HISTORY: The patient is currently afebrile. He is breathing comfortably. Denies significant chest pain or shortness of breath. No abdominal pain. No nausea, vomiting. Did complain he is feeling warm, though no temperature was recorded. PHYSICAL EXAMINATION: Blood pressure is 159/76 with a pulse of 69, temperature 98.2, he is 94% on room air. General description is an elderly male, lying in bed in no distress. RESPIRATORY SYSTEM: Unlabored breathing, clear to auscultation anteriorly. HEART: S1, S2. Regular rate and rhythm. ABDOMEN: Soft, no tenderness. No guarding. EXTREMITIES: No edema of the feet. LABS: Hemoglobin is 11.1, white count of 5.1 with a BUN of 28, creatinine 0.9. Electrolytes has been normal. Blood culture repeat has been negative. IMPRESSION/PLAN: Follow up blood culture with Clostridium perfringens with question of possible . The patient's repeat blood culture has been negative before the antibiotic was started. He did have a CT abdominal pelvis that did not show any acute abnormality. The patient did have a fever on presentation. Will give a short course of oral Augmentin to be on the safe side. Family present at bedside. Their questions and concerns were answered. MMODL / IJN: [id number] /
[2018-03-11 16:49] LABS: Glucose,Whole Blood 295 mg/dL (75-99)
--- NOTE | 2018-03-11 18:41 | P.GSCN ---
History of Present Illness Consult date: 03/11/18 Reason for Consult: Cholelithiasis History of present illness: Asst. 68-year-old male who's worked up for fevers. The patient underwent CAT scan. He is found have multiple gallstones. Patient states that he has had some minimal pain in the past. He denies any significant pain currently in the right upper quadrant. He is tolerating regular diet. Past Medical History Past Medical History: CVA/TIA, Diabetes Mellitus, Deep Vein Thrombosis (DVT), GERD/Reflux, Hypertension, Myocardial Infarction (LA), Prostate Disorder, Pulmonary Embolus (PE), Sleep Apnea/CPAP/BIPAP, Thyroid Disorder Additional Past Medical History / Comment(s): Morbid obesity, obstructive sleep apnea uses CPAP-uses O2 at 5 L during night with cpap,SOB,history of peripheral neuropathy severe associated related to diabetes mellitus, gait dysfunction and frequent falls-uses w/c-able to stand to transfer, chronic back pain, gout, BPH , TIA/CVA-loyda arm and leg weakness, previous history of C. diff colitis back in 2010,hypothyroidism,colon polyps Last Myocardial Infarction Date:: 2010 History of Any Multi-Drug Resistant Organisms: None Reported Year Discovered:: None MDRO Source:: None Past Surgical History: Hernia Repair Additional Past Surgical History / Comment(s): hiatal hernia repair x 2, umbilical hernia repair,2nd digit rt hand amputated Past Anesthesia/Blood Transfusion Reactions: No Reported Reaction Past Psychological History: Bipolar, Depression, PTSD Additional Psychological History / Comment(s): severe PTSD. pt stated he always feels depressed but currently no thoughts of wanting to harm himself. pt lives with his and 2 pets dogs. has mechanical lift into home. w/c, electric scooter, cpap, o2. has helper come in to care for him when his needs to be away from home. 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 Smoking Status: Never smoker Past Alcohol Use History: None Reported Additional Past Alcohol Use History / Comment(s): Patient is a lifelong nonsmoker. He has used marijuana years ago but none recently. He denies any alcohol use. He lives at home with his and 2 dogs. Patient served in the [employer] in [place] and had a back injury at that time. Past Drug Use History: None Reported - Past Family History Father Family Medical History: Cancer Additional Family Medical History / Comment(s): lung Mother Family Medical History: Cancer Additional Family Medical History / Comment(s): bladder Medications and Allergies Home Medications Medication Instructions Recorded Confirmed Type Allopurinol [Zyloprim] 100 mg PO BID 12/02/14 03/06/18 History Ergocalciferol [Vitamin D2 100,000 unit PO MO 12/02/14 03/06/18 History (DRISDOL)] Finasteride [Proscar] 5 mg PO DAILY 12/02/14 03/06/18 History Insulin Aspart [NovoLOG] 40 units SQ AC-TID 12/02/14 03/06/18 History Levothyroxine Sodium [Synthroid] 50 mcg PO DAILY 12/02/14 03/06/18 History [place]-3 Fatty Acids/Fish Oil [Fish 600 mg PO BID 12/02/14 03/06/18 History Oil 1,000 mg Softgel] Pravastatin Sodium [Pravachol] 40 mg PO HS 12/02/14 03/06/18 History Sertraline [Zoloft] 200 mg PO QAM 12/02/14 03/06/18 History Tamsulosin [Flomax] 0.8 mg PO HS 12/02/14 03/06/18 History Ziprasidone [Geodon] 20 mg PO TID 12/02/14 03/06/18 History carBAMazepine [TEGretol] 200 mg PO TID 12/02/14 03/06/18 History Cyanocobalamin [Vitamin B-12 1,000 mcg SQ QMONTH 09/30/15 03/06/18 History Injection] Clopidogrel Bisulfate [Plavix] 75 mg PO DAILY #20 tab 10/01/15 03/06/18 Rx Carvedilol [Coreg] 6.25 mg PO BID 11/25/16 03/06/18 History Pantoprazole Sodium [Protonix] 40 mg PO BID 11/25/16 03/06/18 History Sennosides/Docusate Sodium [Ana 2 tab PO BID 11/25/16 03/06/18 History Colace] clonazePAM [KlonoPIN] 0.5 mg PO TID #20 12/02/16 03/06/18 Rx Gemfibrozil [Lopid] 600 mg PO BID 12/21/16 03/06/18 History Multivitamins, Thera [Multivitamin 1 tab PO DAILY 12/21/16 03/06/18 History (formulary)] Baclofen [Lioresal] 10 mg PO BID 03/14/17 03/06/18 History Insulin Glargine,Hum.rec.anlog 120 unit SQ HS 03/14/17 03/06/18 History [Lantus Solostar] Ranitidine HCl [Zantac] 300 mg PO HS 07/01/17 03/06/18 History Baclofen [Lioresal] 10 mg PO DAILY PRN 03/06/18 03/06/18 History Baclofen [Lioresal] 20 mg PO HS 03/06/18 03/06/18 History Carboxymethylcellulose Sodium 1 drop BOTH EYES QID 03/06/18 03/06/18 History [Restore Plus] Dextrose Chew [Glucose Chew Tab] 4 gm PO TID 03/06/18 03/06/18 History Loratadine [Claritin] 10 mg PO DAILY 03/06/18 03/06/18 History Miconazole Nitrate [Miconazole 1 applic TOPICAL BID 03/06/18 03/06/18 History Nitrate 2%] Naloxone HCl [Narcan] 4 mg NASAL ONCE PRN 03/06/18 03/06/18 History Polyethylene Glycol 3350 [Clearlax] 17 gm PO DAILY 03/06/18 03/06/18 History Polyvinyl Alcohol 1.4% Soln 1 drop BOTH EYES DAILY PRN 03/06/18 03/06/18 History Pregabalin [Lyrica] 100 mg PO TID 03/06/18 03/06/18 History metFORMIN HCL 1,000 mg PO BID 03/06/18 03/06/18 History Allergies Allergy/AdvReac Type Severity Reaction Status Date / Time aspirin Allergy ABDOMINAL Verified 03/06/18 16:43 DISCOMFORT etodolac [From Lodine] Allergy Unknown Verified 03/06/18 16:43 oxybutynin Allergy Unknown Verified 03/06/18 16:43 Surgical - Exam Vital Signs Temp Pulse Resp BP Pulse Ox 99.2 F 92 20 121/78 92 L 03/06/18 16:04 03/06/18 16:04 03/06/18 16:04 03/06/18 16:04 03/06/18 16:04 - General well developed, no distress - Eyes PERRL - ENT normal pinna - Neck no masses - Respiratory normal expansion - Cardiovascular Rhythm: regular - Abdomen Abdomen: soft, non tender Results - Labs 03/10/18 05:54 03/10/18 05:54 Abnormal Lab Results - Last 24 Hours (Table) 03/10/18 03/11/18 03/11/18 Range/Units 20:54 05:52 11:49 POC Glucose (mg/dL) 328 H 332 H 360 H (75-99) mg/dL 03/11/18 Range/Units 16:36 POC Glucose (mg/dL) 295 H (75-99) mg/dL Microbiology - Last 24 Hours (Table) 03/07/18 11:44 Blood Culture - Preliminary Blood No Growth after 96 hours 03/09/18 20:29 Blood Culture - Preliminary Blood No Growth after 24 hours Assessment and Plan Assessment: Cholelithiasis. Once patient is medically cleared we will consider laparoscopic cholecystectomy as an outpatient.
[2018-03-11 19:19] LABS: ALT 45 U/L (21-72); AST 79 U/L (17-59); Albumin 4.2 g/dL (3.5-5.0); Alkaline Phosphatase 66 U/L (38-126); Anion Gap 11 mmol/L; Blood Urea Nitrogen 32 mg/dL (9-20); Calcium 9.9 mg/dL (8.4-10.2); Carbon Dioxide 28 mmol/L (22-30); Chloride 99 mmol/L (98-107); Glucose 283 mg/dL (74-99); Potassium 4.6 mmol/L (3.5-5.1); Sodium 138 mmol/L (137-145); Total Bilirubin 0.4 mg/dL (0.2-1.3); Total Protein 7.5 g/dL (6.3-8.2)
[2018-03-11] MEDS: PRAVASTATIN SODIUM 40 MG TAB PO SCH (20:36)
[2018-03-11 20:38] LABS: Glucose,Whole Blood 256 mg/dL (75-99)
--- NOTE | 2018-03-11 20:55 | P.DS ---
Providers Date of admission: 03/06/18 20:04 Expected date of discharge: 03/13/18 Attending physician: Emily Das Consults: 03/07/18 11:07 Consult Physician Routine Consulting Provider: Heidi Uribe Consult Reason/Comments: positive trops Do you want consulting provider notified?: Yes 03/09/18 11:55 Consult Physician Routine Consulting Provider: Chiki Blake Consult Reason/Comments: Positive blood culture/ Clostridium species Do you want consulting provider notified?: Yes Primary care physician: [facility] Course: Final Diagnoses: -Elevated troponin, not consistent with acute coronary syndrome as per cardiology; outpatient stress test recommended. -Sepsis secondary to Acute UTI, possibly related to multiple small calcified gallstones as per CT -Diabetes mellitus type 2, hyperglycemia secondary to infection -CAD, history of CT -Hypothyroidism -Morbid obesity, BMI 36.4 -Obstructive sleep apnea uses CPAP at home,with O2 at 5 L during the night -Hypertension Hospital course: This is a 68-year-old gentleman who presented to ED with generalized weakness and possible UTI; workup in ED showed UTI/sepsis and elevated troponin levels; patient was started on IV antibiotics and IV heparin and is admitted to the hospital for sepsis treatment and further evaluation by cardiology. Elevated troponin consistent with acute coronary syndrome as per cardiology with outpatient stress test recommended. Evaluated by infectious disease, maintained on IV antibiotics. CT of the abdomen and pelvis did not show any evidence of acute diverticulitis or bowel inflammation; patient did report multiple small calcified gallstones, gallbladder not dilated. Evaluated by surgery. Recommending outpatient laparoscopic cholecystectomy once medically cleared. Significant clinical improvement. Patient is being discharged to [facility] in a stable condition with guarded prognosis. Exam General appearance: alert, in no apparent distress Respiratory exam: Present: Diminished bilateral bases. Cardiovascular Exam: Present: regular rate, normal rhythm, normal heart sounds. Absent: systolic murmur, diastolic murmur, rubs, gallop, clicks GI/Abdominal exam: Present: soft, normal bowel sounds. Absent: distended, tenderness, guarding, rebound, rigid Neurological exam: No focal deficits Microbiology 03/09/18 20:29 Blood Blood Culture - Preliminary No Growth after 24 hours 03/07/18 11:44 Blood Blood Culture - Preliminary No Growth after 72 hours 03/06/18 16:48 Blood Blood Culture Gram Stain - Final 03/06/18 16:48 Blood Blood Culture - Final Clostridium perfringens 03/06/18 16:48 Blood Blood Culture - Final The impression and plan of care has been dictated as directed. : I performed a history and examination of this patient, discussed the same with the dictator. I agree with the dictator's note ,documented as a scribe. Any additional findings or plans will be noted. Time taken: 35 minutes Patient Condition at Discharge: Stable Plan - Discharge Summary Discharge Rx Participant: No New Discharge Prescriptions: No Action Levothyroxine Sodium [Synthroid] 50 mcg PO DAILY carBAMazepine [TEGretol] 200 mg PO TID Finasteride [Proscar] 5 mg PO DAILY Ziprasidone [Geodon] 20 mg PO TID Sertraline [Zoloft] 200 mg PO QAM Allopurinol [Zyloprim] 100 mg PO BID Insulin Aspart [NovoLOG] 40 units SQ AC-TID Ergocalciferol [Vitamin D2 (DRISDOL)] 100,000 unit PO MO Tamsulosin [Flomax] 0.8 mg PO HS Pravastatin Sodium [Pravachol] 40 mg PO HS Bo[place]-3 Fatty Acids/Fish Oil [Fish Oil 1,000 mg Softgel] 600 mg PO BID Cyanocobalamin [Vitamin B-12 Injection] 1,000 mcg SQ QMONTH Clopidogrel Bisulfate [Plavix] 75 mg PO DAILY #20 tab Carvedilol [Coreg] 6.25 mg PO BID Pantoprazole Sodium [Protonix] 40 mg PO BID Sennosides/Docusate Sodium [Ana Colace] 2 tab PO BID clonazePAM [KlonoPIN] 0.5 mg PO TID #20 Multivitamins, Thera [Multivitamin (formulary)] 1 tab PO DAILY Gemfibrozil [Lopid] 600 mg PO BID Baclofen [Lioresal] 10 mg PO BID Insulin Glargine,Hum.rec.anlog [Lantus Solostar] 120 unit SQ HS Ranitidine HCl [Zantac] 300 mg PO HS Baclofen [Lioresal] 10 mg PO DAILY PRN PRN Reason: Muscle Spasm Baclofen [Lioresal] 20 mg PO HS Carboxymethylcellulose Sodium [Restore Plus] 1 drop BOTH EYES QID Dextrose Chew [Glucose Chew Tab] 4 gm PO TID Loratadine [Claritin] 10 mg PO DAILY metFORMIN HCL 1,000 mg PO BID Miconazole Nitrate [Miconazole Nitrate 2%] 1 applic TOPICAL BID Naloxone HCl [Narcan] 4 mg NASAL ONCE PRN PRN Reason: OVERDOSE Polyethylene Glycol 3350 [Clearlax] 17 gm PO DAILY Polyvinyl Alcohol 1.4% Soln 1 drop BOTH EYES DAILY PRN PRN Reason: Dry Eye(S) Pregabalin [Lyrica] 100 mg PO TID Discharge Medication List Allopurinol [Zyloprim] 100 mg PO BID 12/02/14 [History] Ergocalciferol [Vitamin D2 (DRISDOL)] 100,000 unit PO MO 12/02/14 [History] Finasteride [Proscar] 5 mg PO DAILY 12/02/14 [History] Insulin Aspart [NovoLOG] 40 units SQ AC-TID 12/02/14 [History] Levothyroxine Sodium [Synthroid] 50 mcg PO DAILY 12/02/14 [History] Bo[place]-3 Fatty Acids/Fish Oil [Fish Oil 1,000 mg Softgel] 600 mg PO BID 12/02/14 [History] Pravastatin Sodium [Pravachol] 40 mg PO HS 12/02/14 [History] Sertraline [Zoloft] 200 mg PO QAM 12/02/14 [History] Tamsulosin [Flomax] 0.8 mg PO HS 12/02/14 [History] Ziprasidone [Geodon] 20 mg PO TID 12/02/14 [History] carBAMazepine [TEGretol] 200 mg PO TID 12/02/14 [History] Cyanocobalamin [Vitamin B-12 Injection] 1,000 mcg SQ QMONTH 09/30/15 [History] Clopidogrel Bisulfate [Plavix] 75 mg PO DAILY #20 tab 10/01/15 [Rx] Carvedilol [Coreg] 6.25 mg PO BID 11/25/16 [History] Pantoprazole Sodium [Protonix] 40 mg PO BID 11/25/16 [History] Sennosides/Docusate Sodium [Ana Colace] 2 tab PO BID 11/25/16 [History] clonazePAM [KlonoPIN] 0.5 mg PO TID #20 12/02/16 [Rx] Gemfibrozil [Lopid] 600 mg PO BID 12/21/16 [History] Multivitamins, Thera [Multivitamin (formulary)] 1 tab PO DAILY 12/21/16 [History ] Baclofen [Lioresal] 10 mg PO BID 03/14/17 [History] Insulin Glargine,Hum.rec.anlog [Lantus Solostar] 120 unit SQ HS 03/14/17 [ History] Ranitidine HCl [Zantac] 300 mg PO HS 07/01/17 [History] Baclofen [Lioresal] 10 mg PO DAILY PRN 03/06/18 [History] Baclofen [Lioresal] 20 mg PO HS 03/06/18 [History] Carboxymethylcellulose Sodium [Restore Plus] 1 drop BOTH EYES QID 03/06/18 [ History] Dextrose Chew [Glucose Chew Tab] 4 gm PO TID 03/06/18 [History] Loratadine [Claritin] 10 mg PO DAILY 03/06/18 [History] Miconazole Nitrate [Miconazole Nitrate 2%] 1 applic TOPICAL BID 03/06/18 [ History] Naloxone HCl [Narcan] 4 mg NASAL ONCE PRN 03/06/18 [History] Polyethylene Glycol 3350 [Clearlax] 17 gm PO DAILY 03/06/18 [History] Polyvinyl Alcohol 1.4% Soln 1 drop BOTH EYES DAILY PRN 03/06/18 [History] Pregabalin [Lyrica] 100 mg PO TID 03/06/18 [History] metFORMIN HCL 1,000 mg PO BID 03/06/18 [History] Follow up Appointment(s)/Referral(s): Chiki Blake MD [STAFF PHYSICIAN] - 1 Week [facility] [Primary Care Provider] - 1-2 days (Message left for office to call and schedule follow up appointment.) Patient Instructions/Handouts: Dehydration (DC), Weakness (DC)
--- NOTE | 2018-03-11 21:03 | P.PN ---
Subjective Progress Note Date: 03/11/18 Progress note being dictated for Dr. Das Interval history:68-year-old male patient who presented to ED with generalized weakness and possible UTI; workup in ED showed UTI/sepsis and elevated troponin levels; patient was started on IV antibiotics and IV heparin and is admitted to the hospital for sepsis treatment and further evaluation by cardiology 03/08/2018 Patient is seen on follow-up for UTI and elevated troponins; patient continues to deny any complaint of chest pain, nausea or vomiting Patient's vital signs remained stable with a blood pressure of 148/77 pulse 75; O2 saturation 95% on 2 L Labs showing a normal white blood count of 5.6, hemoglobin is 11.2; platelet count is down trending from 135 yesterday to 118; patient has been on IV heparin drip for elevated troponins; we will continue to monitor platelet count closely and DC IV heparin drip if platelet count continues to drop significantly ; await further recommendations from cardiology service to rule out non-ST elevation GA Patient's blood glucose continued to remain elevated ranging between 271-339; patient remains on Levemir 120 units daily at bedtime along with NovoLog with sliding scale and metformin thousand milligrams twice a day; patient is on consistent carbohydrate diet;we will continue same for now 03/09/2018 Patient remains hemodynamically stable; resting comfortably in bed We will signs are stable with a normal temperature pulse rate of 71, blood pressure 155/70 and O2 saturation of 95% on room air Laboratory results reviewed with patient showing a normal white blood count with a hemoglobin drop to 10.9 from 11.2 yesterday; we will monitor H&H daily along with stool occult blood and start patient on PPI for GI prophylaxis patient's microbiology's positive for Clostridium species in one of 2 blood cultures; patient has no signs of infection clinically; we will continue to monitor and consult ID for further recommendations Blood sugars remain elevated; patient is on a very large dose of Levemir; we will continue to monitor and possible IV insulin drip while in the hospital if blood sugars remain elevated We will monitor renal function and electrolytes along with CBC tomorrow morning 03/10/2018 maintained on Unasyn and Flagyl . No nausea vomiting or diarrhea .Denies abdominal pain . Denies urinary symptoms, no urinary frequency or burning. CT of the abdomen and pelvis did not show any evidence of acute diverticulitis or bowel inflammation, reported multiple small calcified gallstones, GB not dilated. Blood cultures pending. Afebrile. Hyperglycemic 03/11/18 evaluated by surgery regarding gallstones; recommending possible outpatient laparoscopic cholecystectomy, once medically cleared. Hyperglycemic secondary to infection, home med regimen resumed. Blood sugars improving, down into the 200s. Afebrile. Preliminary blood cultures negative. Hypertensive today, systolic blood pressures up into the 160s, 170s. Denies nausea vomiting. Denies abdominal pain. Denies chest pain, palpitations or increased shortness of breath. Objective - Vital Signs Vital signs: Vital Signs Temp 97.9 F 03/11/18 16:00 Pulse 70 03/11/18 16:00 Resp 18 03/11/18 16:00 BP 173/76 03/11/18 16:00 Pulse Ox 94 L 03/11/18 16:00 Intake & Output 03/11/18 03/11/18 03/12/18 06:59 18:59 06:59 Intake Total 822 Output Total 1000 Balance -178 Weight 118.5 kg Intake: Oral 822 Output: Urine 1000 Other: Voiding Method Diaper Diaper Incontinent Incontinent # Voids 1 1 - Exam General appearance: alert, in no apparent distress Head exam: Present: atraumatic, normocephalic, normal inspection Eye exam: Present: normal appearance, PERRL, EOMI. Absent: scleral icterus, conjunctival injection, periorbital swelling Respiratory exam: Present: Diminished bilateral bases. Absent: respiratory distress, wheezes, rales, rhonchi, stridor Cardiovascular Exam: Present: regular rate, normal rhythm, normal heart sounds. Absent: systolic murmur, diastolic murmur, rubs, gallop, clicks GI/Abdominal exam: Present: soft, normal bowel sounds. Absent: distended, tenderness, guarding, rebound, rigid Back exam: Present: tenderness. Absent: CVA tenderness (R), CVA tenderness (L) Neurological exam: Present: alert, oriented X3, CN II-XII intact Skin exam: Present: warm, dry, intact, normal color. Absent: rash Microbiology 03/09/18 20:29 Blood Blood Culture - Preliminary No Growth after 24 hours 03/07/18 11:44 Blood Blood Culture - Preliminary No Growth after 72 hours 03/06/18 16:48 Blood Blood Culture Gram Stain - Final 03/06/18 16:48 Blood Blood Culture - Final Clostridium perfringens 03/06/18 16:48 Blood Blood Culture - Final - Labs CBC & Chem 7: 03/10/18 05:54 03/11/18 18:47 Labs: Abnormal Lab Results - Last 24 Hours (Table) 03/10/18 03/11/18 03/11/18 Range/Units 20:54 05:52 11:49 BUN (9-20) mg/dL Glucose (74-99) mg/dL POC Glucose (mg/dL) 328 H 332 H 360 H (75-99) mg/dL AST (17-59) U/L 03/11/18 03/11/18 03/11/18 Range/Units 16:36 18:47 20:37 BUN 32 H (9-20) mg/dL Glucose 283 H (74-99) mg/dL POC Glucose (mg/dL) 295 H 256 H (75-99) mg/dL AST 79 H (17-59) U/L Microbiology - Last 24 Hours (Table) 03/07/18 11:44 Blood Culture - Preliminary Blood No Growth after 96 hours 03/09/18 20:29 Blood Culture - Preliminary Blood No Growth after 24 hours Assessment and Plan Assessment: -Elevated troponin, not consistent with acute coronary syndrome as per cardiology; outpatient stress test recommended. -Sepsis secondary to Acute UTI,multiple gallstones as per CT -Diabetes mellitus type 2, hyperglycemia -CAD, history of GA -Hypothyroidism -Morbid obesity, BMI 36.4 -Obstructive sleep apnea uses CPAP at home,with O2 at 5 L during the night Plan: Continue on current medication regime ,monitoring and symptomatic treatment. Evaluated by surgery with recommendations noted. Maintain antibiotics as per infectious disease. Final blood culture results pending. Home diabetic med regime resumed, Close monitoring of Accu-Cheks. Discharge planning in progress to [facility]. The impression and plan of care has been dictated as directed. : I performed a history and examination of this patient, discussed the same with the dictator. I agree with the dictator's note ,documented as a scribe. Any additional findings or plans will be noted.
[2018-03-11] MEDS: INSULIN DETEMIR 100 UNIT/ML 10 ML VIAL SQ SCH (22:21)
[2018-03-12] MEDS: AMPICILLIN-SULBACTAM 3 GM in SODIUM CHLORIDE 0.9% 100 ML IVPB SCH ×5 (00:43→23:17)
[2018-03-12 06:35] LABS: Glucose,Whole Blood 383 mg/dL (75-99)
[2018-03-12] MEDS: LEVOTHYROXINE 50 MCG TAB PO SCH (07:08)
[2018-03-12] MEDS: CARVEDILOL 6.25 MG TAB PO SCH ×2 (07:08→17:37)
[2018-03-12] MEDS: INSULIN ASPART 100 UNIT/ML 1 ML 10 ML VIAL SQ SCH ×7 (07:11→21:40)
[2018-03-12 07:22] LABS: Basophils % (A) 1 %; Eosinophils # (A) 0.1 k/uL (0-0.7); Eosinophils % (A) 1 %; HCT 35.3 % (39.0-53.0); HGB 11.5 gm/dL (13.0-17.5); Lymphocytes # (A) 1.1 k/uL (1.0-4.8); Lymphocytes % (A) 18 %; MCH 28.1 pg (25.0-35.0); MCHC 32.7 g/dL (31.0-37.0); Mean Platelet Volume 7.8; Monocytes # (A) 0.3 k/uL (0-1.0); Monocytes % (A) 5 %; Neutrophils # (A) 4.3 k/uL (1.3-7.7); Neutrophils % (A) 74 %; Platelet Count 163 k/uL (150-450); RBC 4.11 m/uL (4.30-5.90); RDW 15.8 % (11.5-15.5); WBC 5.9 k/uL (3.8-10.6)
[2018-03-12 07:34] LABS: Calcium 9.9 mg/dL (8.4-10.2); Potassium 5.3 mmol/L (3.5-5.1)
[2018-03-12] MEDS: BACLOFEN 10 MG TAB PO SCH ×3 (08:52→19:53)
[2018-03-12] MEDS: CLOPIDOGREL 75 MG TAB PO SCH (08:52)
[2018-03-12] MEDS: amLODIPine 5 MG TAB PO SCH (08:52)
[2018-03-12] MEDS: FENOFIBRATE 160 MG TAB PO SCH ×2 (08:52→19:53)
[2018-03-12] MEDS: SERTRALINE 100 MG TAB PO SCH (08:52)
[2018-03-12] MEDS: FINASTERIDE 5 MG TAB PO SCH (08:52)
[2018-03-12] MEDS: PREGABALIN 100 MG CAP PO SCH ×3 (08:52→21:37)
[2018-03-12] MEDS: PANTOPRAZOLE 40 MG TABLET PO SCH ×2 (08:52→19:57)
[2018-03-12] MEDS: clonazePAM 0.5 MG TAB PO SCH ×3 (08:52→21:37)
[2018-03-12] MEDS: carBAMazepine 200 MG TAB PO SCH ×3 (08:53→21:37)
[2018-03-12] MEDS: metFORMIN 500 MG TAB PO SCH ×2 (08:53→21:39)
[2018-03-12] MEDS: ZIPRASIDONE 20 MG CAP PO SCH ×3 (08:53→21:37)
[2018-03-12] MEDS: metroNIDAZOLE 500 MG TAB PO SCH ×3 (08:53→21:37)
[2018-03-12] MEDS: ALLOPURINOL 100 MG TAB PO SCH ×2 (08:53→19:54)
[2018-03-12] MEDS: ASPIRIN 81 MG PO SCH (09:04)
[2018-03-12] MEDS: ARTIFICIAL TEARS-HYPROMELLOSE DROPS 15 ML BTL BOTH EYES SCH ×4 (09:19→21:37)
--- NOTE | 2018-03-12 10:41 | P.PN ---
Progress Note - Text Progress Note Date: 03/12/18 The patient is resting comfortably in his bed. He denies a significant abdominal pain. He states that he did have some right upper quadrant pain last night. He describes a crampy pain. On exam is lesser stable. His abdomen soft. It. Patient was discharged home today. He will follow myself in one week. We will plan for outpatient cholecystectomy.
[2018-03-12] MEDS ORDERED: ARTIFICIAL TEARS-HYPROMELLOSE DROPS 15 ML BTL BOTH EYES PRN (12:29)
[2018-03-12 12:32] LABS: Glucose,Whole Blood 226 mg/dL (75-99)
[2018-03-12 17:22] LABS: Glucose,Whole Blood 239 mg/dL (75-99)
[2018-03-12] MEDS: FISH OIL 600 MG PO SCH (19:48)
[2018-03-12] MEDS: MICONAZOLE NITRATE 2% CREAM 14 GM TUBE TOPICAL SCH (19:54)
[2018-03-12] MEDS: PRAVASTATIN SODIUM 40 MG TAB PO SCH (19:57)
[2018-03-12] MEDS: SENNOSIDES-DOCUSATE SODIUM 1 EACH TAB PO SCH (19:57)
[2018-03-12] MEDS ORDERED: TAMSULOSIN 0.4 MG CAP.ER.24H PO SCH (21:00)
[2018-03-12] MEDS ORDERED: INSULIN DETEMIR 100 UNIT/ML 10 ML VIAL SQ SCH (21:00)
[2018-03-12 21:43] LABS: Glucose,Whole Blood 305 mg/dL (75-99)
--- NOTE | 2018-03-13 01:06 | PN ---
PROGRESS NOTE DATE OF SERVICE: 03/12/2018 This 68-year-old gentleman who was admitted with elevated troponins not consistent with acute coronary artery disease, also had sepsis with acute UTI. Patient also had a closely for pharyngeal sepsis. The patient also had cholelithiasis and abdominal CT scan. The patient is on broad-spectrum IV antibiotics. Surgery evaluated following the patient. Recommended outpatient evaluation, possible surgery. The patient is slated to go to [facility] rehab. No chest pain. No palpitations. No fever. PHYSICAL EXAM: Alert and oriented x3, pulse 77, blood pressure 149/70, respiratory 20, temperature 98.7, pulse ox 94% on 2 L. HEENT: Conjunctivae normal. Neck is no jugular venous distention. Cardiovascular: S1, S2 muffled. Respirations: Breath sounds diminished in the bases. No rhonchi. No crackles. Abdomen is soft, obese, nontender. No mass palpable. Legs: No edema. No swelling. LABS: WBC 5.2, hemoglobin 11.5, sodium 130, potassium 5.3, glucose 226-239. ASSESSMENT: 1. Acute sepsis clostridium. 2. Acute urinary tract infection. 3. Multiple gallstones. 4. Diabetes mellitus type 2, hypoglycemia indeterminate troponins not consistent with coronary syndrome per Cardiology. Outpatient evaluation recommended. 5. Coronary artery disease. 6. History of myocardial infarction. 7. Hypothyroidism. 8. Morbid obesity 36.5. 9. Severe gait dysfunction. 10.Obstructive sleep apnea. RECOMMENDATIONS AND DISCUSSION: Recommend to continue current medications, management and continue with antibiotics. Continue with monitoring. Possible rehab to select Medical facility. Patient is on Unasyn at this time otherwise repeat cultures are negative so far. I would also recommend to follow closely with multiple consultants and increase ambulation. Guarded prognosis. Further recommendations to follow. MMODL / IJN: [id number] / ADDIE
[2018-03-13 05:57] LABS: Glucose,Whole Blood 337 mg/dL (75-99)
[2018-03-13] MEDS: LEVOTHYROXINE 50 MCG TAB PO SCH (06:13)
[2018-03-13] MEDS: CARVEDILOL 6.25 MG TAB PO SCH (06:14)
[2018-03-13] MEDS: AMPICILLIN-SULBACTAM 3 GM in SODIUM CHLORIDE 0.9% 100 ML IVPB SCH ×2 (06:14→12:32)
[2018-03-13] MEDS: INSULIN ASPART 100 UNIT/ML 1 ML 10 ML VIAL SQ SCH ×4 (06:15→12:32)
[2018-03-13 06:49] LABS: Anisocytosis Slight; Basophils % (A) 0 %; Eosinophils # (A) 0.1 k/uL (0-0.7); Eosinophils % (A) 1 %; HCT 35.7 % (39.0-53.0); HGB 11.9 gm/dL (13.0-17.5); Lymphocytes # (A) 1.3 k/uL (1.0-4.8); Lymphocytes % (A) 20 %; MCH 28.4 pg (25.0-35.0); MCHC 33.3 g/dL (31.0-37.0); MCV 85.2 fL (80.0-100.0); Mean Platelet Volume 7.8; Monocytes # (A) 0.3 k/uL (0-1.0); Monocytes % (A) 5 %; Neutrophils # (A) 4.5 k/uL (1.3-7.7); Neutrophils % (A) 72 %; Platelet Count 147 k/uL (150-450); WBC 6.3 k/uL (3.8-10.6)
[2018-03-13 07:00] LABS: Calcium 9.9 mg/dL (8.4-10.2); Potassium 5.1 mmol/L (3.5-5.1)
[2018-03-13] MEDS ORDERED: MULTIVITAMINS, THERA 1 EACH TAB PO SCH (09:00)
--- NOTE | 2018-03-13 09:23 | P.PN ---
Progress Note - Text Progress Note Date: 03/13/18 The patient resting comfortably in his bed. He is tolerating a diet. On exam his vital signs are stable. His abdomen soft. There is no significant tenderness. Chronic cholecystitis with cholelithiasis. Patient will undergo laparoscopic ostectomy as outpatient.
[2018-03-13] MEDS: PANTOPRAZOLE 40 MG TABLET PO SCH (09:35)
[2018-03-13] MEDS: metroNIDAZOLE 500 MG TAB PO SCH (09:36)
[2018-03-13] MEDS: carBAMazepine 200 MG TAB PO SCH (09:36)
[2018-03-13] MEDS: ZIPRASIDONE 20 MG CAP PO SCH (09:36)
[2018-03-13] MEDS: SENNOSIDES-DOCUSATE SODIUM 1 EACH TAB PO SCH (09:36)
[2018-03-13] MEDS: SERTRALINE 100 MG TAB PO SCH (09:36)
[2018-03-13] MEDS: ASPIRIN 81 MG PO SCH (09:36)
--- NOTE | 2018-03-13 09:36 | PN ---
PROGRESS NOTE DATE OF SERVICE: 03/12/2018. REASON FOR FOLLOWUP: Streptococcus pyogenes bacteremia. INTERVAL HISTORY: The patient is currently afebrile. He is breathing comfortably. Denies having any chest pain or cough. No abdominal pain. No diarrhea. EXAMINATION: Blood pressure is 149/71 with a pulse of 77, temperature 98.7. He is 95% on 2 L nasal cannula. General description is an elderly male lying in bed in no distress. Respiratory system: Unlabored breathing. Clear to auscultation anteriorly. Heart S1, S2. Regular rate and rhythm. Abdomen soft, no tenderness. EXTREMITIES: No edema of the feet. LABS: Hemoglobin 11.5, white count 5.9, BUN 32, creatinine 1.1. DIAGNOSTIC IMPRESSION AND PLAN: Patient with possible origin versus contamination. The patient at this time to continue with the IV Unasyn that will be transitioned to oral Augmentin on discharge for a short course. Continue supportive care. MMODL / IJN: [id number] /
[2018-03-13] MEDS: CLOPIDOGREL 75 MG TAB PO SCH (09:37)
[2018-03-13] MEDS: metFORMIN 500 MG TAB PO SCH (09:37)
[2018-03-13] MEDS: amLODIPine 5 MG TAB PO SCH (09:37)
[2018-03-13] MEDS: FENOFIBRATE 160 MG TAB PO SCH (09:37)
[2018-03-13] MEDS: FISH OIL 600 MG PO SCH (09:38)
[2018-03-13] MEDS: ALLOPURINOL 100 MG TAB PO SCH (09:48)
[2018-03-13] MEDS: clonazePAM 0.5 MG TAB PO SCH (09:48)
[2018-03-13] MEDS: PREGABALIN 100 MG CAP PO SCH (09:48)
[2018-03-13 11:59] LABS: Glucose,Whole Blood 295 mg/dL (75-99)
--- NOTE | 2018-03-13 12:02 | P.DS ---
Providers Date of admission: 03/06/18 20:04 Attending physician: Emily Godoy Consults: 03/07/18 11:07 Consult Physician Routine Consulting Provider: Heidi Uribe Consult Reason/Comments: positive trops Do you want consulting provider notified?: Yes 03/09/18 11:55 Consult Physician Routine Consulting Provider: Chiki Blake Consult Reason/Comments: Positive blood culture/ Clostridium species Do you want consulting provider notified?: Yes 03/11/18 11:44 Consult Physician Stat Consulting Provider: Santiago Hoffmann Consult Reason/Comments: gall stones Do you want consulting provider notified?: Yes Primary care physician: [facility] Hospital Course: Final diagnosis 1 acute sepsis with a Clostridium perfringens Acute UTI Multiple gallstones Diabetes was type II Hyperglycemia indeterminate troponins not consistent with the myocardial infarction per cardiology History of coronary artery disease History of myocardial infarction Hypothyroidism Morbid obesity 36.5 gait dysfunction sleep apnea Hisotry of present illness this 68-year-old gentleman with a past medical history multiple medical problems being followed by Dr. Black and [place] in the outpatient setting was admitted with the features of sepsis. Clostridium perfringens was grown from the culture. Patient was given IV antibiotics. Infectious disease saw the patient. Patient also had a gallstones. Computed tomography scan was reviewed. Surgery consultation was obtained. Surgery Dr. Hoffmann recommended outpatient evaluation and possible cholecystectomy. Cardiology also saw the patient for the above-mentioned medical issues. Echocardiogram reviewed Normal ejection fraction. Recommended outpatient follow-up and workup. Patient be discharged in a stable condition with guarded prognosis. Total time taken 35 minutes On exam vitals are stable. Cardio S1 and S2 normal. Respiratory system clear to auscultation. Abdomen soft nontender obese. Nervous system diffusely weak Patient Condition at Discharge: Stable Plan - Discharge Summary Discharge Rx Participant: No New Discharge Prescriptions: New Acetaminophen Tab [Tylenol] 650 mg PO Q6HR PRN tab PRN Reason: Fever And/ Or Pain amLODIPine [Norvasc] 5 mg PO DAILY tab Amoxic-Pot Clav 875-125Mg [Augmentin 875-125] 1 each PO Q12HR 7 Days tab Insulin Aspart [NovoLOG (formulary)] 0 unit SQ ACHS vial Continue Levothyroxine Sodium [Synthroid] 50 mcg PO DAILY carBAMazepine [TEGretol] 200 mg PO TID Finasteride [Proscar] 5 mg PO DAILY Ziprasidone [Geodon] 20 mg PO TID Sertraline [Zoloft] 200 mg PO QAM Allopurinol [Zyloprim] 100 mg PO BID Insulin Aspart [NovoLOG] 40 units SQ AC-TID Ergocalciferol [Vitamin D2 (DRISDOL)] 100,000 unit PO MO Tamsulosin [Flomax] 0.8 mg PO HS Pravastatin Sodium [Pravachol] 40 mg PO HS [place]-3 Fatty Acids/Fish Oil [Fish Oil 1,000 mg Softgel] 600 mg PO BID Cyanocobalamin [Vitamin B-12 Injection] 1,000 mcg SQ QMONTH Clopidogrel Bisulfate [Plavix] 75 mg PO DAILY #20 tab Carvedilol [Coreg] 6.25 mg PO BID Pantoprazole Sodium [Protonix] 40 mg PO BID Sennosides/Docusate Sodium [Ana Colace] 2 tab PO BID clonazePAM [KlonoPIN] 0.5 mg PO TID #20 Multivitamins, Thera [Multivitamin (formulary)] 1 tab PO DAILY Gemfibrozil [Lopid] 600 mg PO BID Baclofen [Lioresal] 10 mg PO BID Ranitidine HCl [Zantac] 300 mg PO HS Baclofen [Lioresal] 10 mg PO DAILY PRN PRN Reason: Muscle Spasm Baclofen [Lioresal] 20 mg PO HS Carboxymethylcellulose Sodium [Restore Plus] 1 drop BOTH EYES QID Dextrose Chew [Glucose Chew Tab] 4 gm PO TID Loratadine [Claritin] 10 mg PO DAILY metFORMIN HCL 1,000 mg PO BID Miconazole Nitrate [Miconazole Nitrate 2%] 1 applic TOPICAL BID Naloxone HCl [Narcan] 4 mg NASAL ONCE PRN PRN Reason: OVERDOSE Polyethylene Glycol 3350 [Clearlax] 17 gm PO DAILY Polyvinyl Alcohol 1.4% Soln 1 drop BOTH EYES DAILY PRN PRN Reason: Dry Eye(S) Pregabalin [Lyrica] 100 mg PO TID Changed Insulin Glargine,Hum.rec.anlog [Lantus Solostar] 140 unit SQ HS #0 Discharge Medication List Allopurinol [Zyloprim] 100 mg PO BID 12/02/14 [History] Ergocalciferol [Vitamin D2 (DRISDOL)] 100,000 unit PO MO 12/02/14 [History] Finasteride [Proscar] 5 mg PO DAILY 12/02/14 [History] Insulin Aspart [NovoLOG] 40 units SQ AC-TID 12/02/14 [History] Levothyroxine Sodium [Synthroid] 50 mcg PO DAILY 12/02/14 [History] [place]-3 Fatty Acids/Fish Oil [Fish Oil 1,000 mg Softgel] 600 mg PO BID 12/02/14 [History] Pravastatin Sodium [Pravachol] 40 mg PO HS 12/02/14 [History] Sertraline [Zoloft] 200 mg PO QAM 12/02/14 [History] Tamsulosin [Flomax] 0.8 mg PO HS 12/02/14 [History] Ziprasidone [Geodon] 20 mg PO TID 12/02/14 [History] carBAMazepine [TEGretol] 200 mg PO TID 12/02/14 [History] Cyanocobalamin [Vitamin B-12 Injection] 1,000 mcg SQ QMONTH 09/30/15 [History] Clopidogrel Bisulfate [Plavix] 75 mg PO DAILY #20 tab 10/01/15 [Rx] Carvedilol [Coreg] 6.25 mg PO BID 11/25/16 [History] Pantoprazole Sodium [Protonix] 40 mg PO BID 11/25/16 [History] Sennosides/Docusate Sodium [Ana Colace] 2 tab PO BID 11/25/16 [History] clonazePAM [KlonoPIN] 0.5 mg PO TID #20 12/02/16 [Rx] Gemfibrozil [Lopid] 600 mg PO BID 12/21/16 [History] Multivitamins, Thera [Multivitamin (formulary)] 1 tab PO DAILY 12/21/16 [History ] Baclofen [Lioresal] 10 mg PO BID 03/14/17 [History] Ranitidine HCl [Zantac] 300 mg PO HS 07/01/17 [History] Baclofen [Lioresal] 10 mg PO DAILY PRN 03/06/18 [History] Baclofen [Lioresal] 20 mg PO HS 03/06/18 [History] Carboxymethylcellulose Sodium [Restore Plus] 1 drop BOTH EYES QID 03/06/18 [ History] Dextrose Chew [Glucose Chew Tab] 4 gm PO TID 03/06/18 [History] Loratadine [Claritin] 10 mg PO DAILY 03/06/18 [History] Miconazole Nitrate [Miconazole Nitrate 2%] 1 applic TOPICAL BID 03/06/18 [ History] Naloxone HCl [Narcan] 4 mg NASAL ONCE PRN 03/06/18 [History] Polyethylene Glycol 3350 [Clearlax] 17 gm PO DAILY 03/06/18 [History] Polyvinyl Alcohol 1.4% Soln 1 drop BOTH EYES DAILY PRN 03/06/18 [History] Pregabalin [Lyrica] 100 mg PO TID 03/06/18 [History] metFORMIN HCL 1,000 mg PO BID 03/06/18 [History] Acetaminophen Tab [Tylenol] 650 mg PO Q6HR PRN tab 03/13/18 [Rx] Amoxic-Pot Clav 875-125Mg [Augmentin 875-125] 1 each PO Q12HR 7 Days tab [Rx] Insulin Aspart [NovoLOG (formulary)] 0 unit SQ ACHS vial 03/13/18 [Rx] Insulin Glargine,Hum.rec.anlog [Lantus Solostar] 140 unit SQ HS #0 03/13/18 [Rx] amLODIPine [Norvasc] 5 mg PO DAILY tab 03/13/18 [Rx] Follow up Appointment(s)/Referral(s): Chiki Blake MD [STAFF PHYSICIAN] - 1 Week [facility],Clinic [Primary Care Provider] - 1-2 days (Message left for office to call and schedule follow up appointment.) Santiago Hoffmann MD [STAFF PHYSICIAN] - 2 Weeks Patient Instructions/Handouts: Dehydration (DC), Weakness (DC)
[2018-03-13] MEDS: BACLOFEN 10 MG TAB PO SCH (12:27)
[2018-03-13] MEDS: FINASTERIDE 5 MG TAB PO SCH (12:27)
[2018-03-13] MEDS: ARTIFICIAL TEARS-HYPROMELLOSE DROPS 15 ML BTL BOTH EYES SCH ×2 (12:27→12:33)
[2018-03-13] MEDS: MICONAZOLE NITRATE 2% CREAM 14 GM TUBE TOPICAL SCH (12:27)
[2018-03-13 14:34] VITALS: BP 159/73; PULSE 78; RESP 18; TEMP 98.6
--- NOTE | 2018-03-13 16:04 | PN ---
PROGRESS NOTE DATE OF SERVICE: 03/13/2018 REASON FOR FOLLOWUP: Positive blood culture. INTERVAL HISTORY: The patient was seen on rounds earlier this morning. The patient has been afebrile. The patient has been breathing comfortably. Denies having any chest pain or shortness of breath. Occasional cough and some heartburn, but no nausea, no vomiting and no diarrhea. PHYSICAL EXAMINATION: Blood pressure 159/73 with a pulse of 78, temperature 98.6. He is 90% on room air. General description is an elderly male lying in bed in no distress. RESPIRATORY SYSTEM: Unlabored breathing. Clear to auscultation anteriorly. HEART: S1, S2. Regular rate and rhythm. ABDOMEN: Soft. No tenderness. LABS: Hemoglobin 11.9, white count 6.3, BUN of 35, creatinine 1.08. Blood culture repeat has been negative. DIAGNOSTIC IMPRESSION AND PLAN: Patient with positive blood culture with Clostridium perfringens, question of possible contamination, as no significant inflammation was noticed in the CT of abdomen and pelvis. Repeat blood culture has been negative. Will give a short course of oral Augmentin and close outpatient followup. MMODL / IJN: [id number] /
[2018-03-13] MEDS ORDERED: AMOXIC-POT CLAV 875-125MG 1 EACH TAB PO SCH (21:00)
[2018-03-16] MEDS ORDERED: ERGOCALCIFEROL 50,000 UNIT CAP PO SCH (12:00)
== END 2018-03-13 15:40 | DRG 872 ==
LOC: EC 15:30 → 3SCARD 20:04 → UNDODISIN 03-07 06:31 → 3SCARD 03-07 06:34 → 4MS4W 03-13 08:35
PROVIDERS: ADMIT Internal Medicine; ATTEND Internal Medicine
DX: A41.4 Sepsis due to anaerobes (principal); N39.0 Urinary tract infection, site not specified; K80.10 Calculus of gallbladder with chronic cholecystitis without obstruction; E87.2 Acidosis; I69.359 Hemiplegia and hemiparesis following cerebral infarction affecting unspecified side; E11.42 Type 2 diabetes mellitus with diabetic polyneuropathy; E11.65 Type 2 diabetes mellitus with hyperglycemia; E66.01 Morbid (severe) obesity due to excess calories; Z68.37 Body mass index [BMI] 37.0-37.9, adult; N28.1 Cyst of kidney, acquired; E86.0 Dehydration; I25.10 Atherosclerotic heart disease of native coronary artery without angina pectoris; E03.9 Hypothyroidism, unspecified; N40.0 Benign prostatic hyperplasia without lower urinary tract symptoms; N40.1 Benign prostatic hyperplasia with lower urinary tract symptoms; N39.498 Other specified urinary incontinence; R33.8 Other retention of urine; G47.33 Obstructive sleep apnea (adult) (pediatric); K21.9 Gastro-esophageal reflux disease without esophagitis; S99.911A Unspecified injury of right ankle, initial encounter; S99.921A Unspecified injury of right foot, initial encounter; I25.2 Old myocardial infarction; F43.10 Post-traumatic stress disorder, unspecified; F31.9 Bipolar disorder, unspecified; G89.29 Other chronic pain; M54.9 Dorsalgia, unspecified; E78.5 Hyperlipidemia, unspecified; I10 Essential (primary) hypertension; M51.36 Other intervertebral disc degeneration, lumbar region; R29.6 Repeated falls; R77.8 Other specified abnormalities of plasma proteins; M10.9 Gout, unspecified; R40.2142 Coma scale, eyes open, spontaneous, at arrival to emergency department; R40.2362 Coma scale, best motor response, obeys commands, at arrival to emergency department; R40.2252 Coma scale, best verbal response, oriented, at arrival to emergency department; Z79.02 Long term (current) use of antithrombotics/antiplatelets; Z79.890 Hormone replacement therapy; Z79.4 Long term (current) use of insulin; Z79.899 Other long term (current) drug therapy; Z86.718 Personal history of other venous thrombosis and embolism; Z86.711 Personal history of pulmonary embolism; Z99.89 Dependence on other enabling machines and devices; Z86.010 Personal history of colon polyps; Z86.19 Personal history of other infectious and parasitic diseases; Z88.6 Allergy status to analgesic agent; Z88.8 Allergy status to other drugs, medicaments and biological substances; Z80.1 Family history of malignant neoplasm of trachea, bronchus and lung; Z80.52 Family history of malignant neoplasm of bladder
CPT/HCPCS: 36415; 71046; 74176; 74177; 80048; 80053; 80061; 81001; 82150; 82272; 82550; 82553; 83036; 83605; 83690; 84484; 85025; 85730; 87040; 93005; 93306; 96361; 96365; 96366; 96368; 96376; 99285

== ENCOUNTER 2018-08-20 18:56 | Inpatient (IN) | payer OTHER, MEDICARE ==
[2018-08-20] MEDS ORDERED: SODIUM CHLORIDE 0.9% 1,000 ML IV STA (19:47)
--- NOTE | 2018-08-20 19:50 | ED ---
General Adult HPI - General Chief complaint: Weakness Stated complaint: weakness Time Seen by Provider: 08/20/18 19:04 Source: patient, EMS Mode of arrival: EMS Limitations: physical limitation - History of Present Illness Initial comments: Dictation was produced using Your[employer] dictation software. please excuse any grammatical, word or spelling errors. Chief Complaint: 68-year-old male with multiple comorbidities presents with generalized weakness. History of Present Illness: 8-year-old male with past medical history of CVA, diabetes, hypertension, AK, thyroid disease, sleep apnea presents with generalized weakness. Patient was in his usual state of health earlier today. He went down to take a nap and after several hours of sleeping he was difficult to arouse by family members. was at bedside reports that they had to do a sternal rub to wake him up. Patient states than feeling generally weak however has no specific complaints at this time. Denies any chest pain, shortness of breath. No constitutional symptoms. The ROS documented in this emergency department record has been reviewed and confirmed by me. Those systems with pertinent positive or negative responses have been documented in the HPI. All other systems are other negative and/or noncontributory. PHYSICAL EXAM: General Impression: Alert and oriented x3, not in acute distress HEENT: Normocephalic atraumatic, extra-ocular movements intact, pupils equal and reactive to light bilaterally, mucous membranes moist. Cardiovascular: Heart regular rate and rhythm, S1&S2 audible, no murmurs, rubs or gallops Chest: Lungs clear to auscultation bilaterally, no rhonchi, no wheeze, no rales Abdomen: Bowel sounds present, abdomen soft, non-tender, non-distended, no organomegaly, tympany to percussion of the abdomen Musculoskeletal: Pulses present and equal in all extremities, no peripheral edema Motor: no focal deficits noted Neurological: CN II-XII grossly intact, no focal motor or sensory deficits noted Skin: Intact with no visualized rashes Psych: Normal affect and mood ED course: 68-year-old male presents with generalized weakness. Vital signs upon arrival shows bradycardia 51, rest of vital signs within acceptable limits. Laboratory evaluation was obtained. CBC, coag panel, metabolic panel was obtained showing no acute processes. Patient has slight elevation of BUN. This is likely reflective of dehydration. Hemoglobin stable at 10.9 which is around patient's baseline. Urinalysis is obtained showing findings to suggest urinary tract infection. Patient has UTIs in the past. He is also had positive blood cultures. Given that patient is symptomatic and has white blood cells in the urine there is concern of symptomatic urinary tract infection. Her history was obtained from patient and family member. She reports that he had cystoscopy performed by urologist recently. Nonetheless, there is concern that patient's symptoms reflect early sepsis. I believe patient would benefit from short inpatient stay with IV antibiotics and medical monitoring. Patient started on ceftriaxone. EKG interpretation: Ventricular rate 51, sinus bradycardia, MI interval 170, QS 104, QTC 427. No MI prolongation, no QTC prolongation, no ST or T-wave changes noted. EKG compared to and 03/06/2018 showing no changes. Overall, this EKG is unremarkable - Related Data Home Medications Medication Instructions Recorded Confirmed Allopurinol [Zyloprim] 100 mg PO BID 12/02/14 08/20/18 Ergocalciferol [Vitamin D2 100,000 unit PO MO 12/02/14 08/20/18 (DRISDOL)] Finasteride [Proscar] 5 mg PO DAILY 12/02/14 08/20/18 Insulin Aspart [NovoLOG] 40 units SQ AC-TID 12/02/14 08/20/18 Levothyroxine Sodium [Synthroid] 50 mcg PO DAILY 12/02/14 08/20/18 [place]-3 Fatty Acids/Fish Oil [Fish 2 cap PO BID 12/02/14 08/20/18 Oil 1,000 mg Softgel] Pravastatin Sodium [Pravachol] 80 mg PO HS 12/02/14 08/20/18 Sertraline [Zoloft] 200 mg PO DAILY 12/02/14 08/20/18 Tamsulosin [Flomax] 0.8 mg PO HS 12/02/14 08/20/18 Ziprasidone [Geodon] 20 mg PO TID 12/02/14 08/20/18 carBAMazepine [TEGretol] 400 mg PO TID 12/02/14 08/20/18 Gemfibrozil [Lopid] 600 mg PO BID 12/21/16 08/20/18 Multivitamins, Thera [Multivitamin 1 tab PO DAILY 12/21/16 08/20/18 (formulary)] Baclofen [Lioresal] 10 mg PO BID 03/14/17 08/20/18 Ranitidine HCl [Zantac] 300 mg PO HS 07/01/17 08/20/18 Baclofen [Lioresal] 10 mg PO DAILY PRN 03/06/18 08/20/18 Baclofen [Lioresal] 20 mg PO HS 03/06/18 08/20/18 Carboxymethylcellulose Sodium 1 drop BOTH EYES QID 03/06/18 08/20/18 [Restore Plus] Dextrose Chew [Glucose Chew Tab] 4 gm PO TID PRN 03/06/18 08/20/18 Loratadine [Claritin] 10 mg PO DAILY 03/06/18 08/20/18 Pregabalin [Lyrica] 100 mg PO TID 03/06/18 08/20/18 metFORMIN HCL 1,000 mg PO BID 03/06/18 08/20/18 Albuterol Sulfate [Proair Hfa] 2 puff INHALATION RT-Q4H PRN 08/20/18 08/20/18 Carvedilol [Coreg] 12.5 mg PO BID 08/20/18 08/20/18 Diclofenac Sodium Gel [Voltaren 1 applic TOPICAL BID PRN 08/20/18 08/20/18 Gel] Fluticasone Nasal [place] [Flonase 1 spray EA NOSTRIL BID 08/20/18 08/20/18 Nasal [place]] INSULIN ASPART (NovoLOG) [NovoLOG See Protocol SQ AC-TID 08/20/18 08/20/18 (formulary)] Insulin Glargine,Hum.rec.anlog 120 unit SQ HS 08/20/18 08/20/18 [Lantus Solostar] Miconazole Nitrate [Lotrimin AF 1 applic TOPICAL BID 08/20/18 08/20/18 Powder] Pantoprazole Sodium [Protonix] 40 mg PO BID 08/20/18 08/20/18 Sodium Chloride 5% Ophth Oint 1 applic BOTH EYES HS 08/20/18 08/20/18 [[place] 128] Ziprasidone HCl [Geodon] 20 mg PO DAILY PRN 08/20/18 08/20/18 amLODIPine [Norvasc] 10 mg PO DAILY 08/20/18 08/20/18 clonazePAM [KlonoPIN] 0.5 mg PO TID PRN 08/20/18 08/20/18 Previous Rx's Medication Instructions Recorded Clopidogrel Bisulfate [Plavix] 75 mg PO DAILY #20 tab 10/01/15 Allergies Allergy/AdvReac Type Severity Reaction Status Date / Time aspirin Allergy ABDOMINAL Verified 08/20/18 19:17 DISCOMFORT etodolac [From Lodine] Allergy Unknown Verified 08/20/18 19:17 oxybutynin Allergy Unknown Verified 08/20/18 19:17 Review of Systems ROS Statement: Those systems with pertinent positive or pertinent negative responses have been documented in the HPI. ROS Other: All systems not noted in ROS Statement are negative. Past Medical History Past Medical History: CVA/TIA, Diabetes Mellitus, Deep Vein Thrombosis (DVT), GERD/Reflux, Hypertension, Myocardial Infarction (AK), Prostate Disorder, Pulmonary Embolus (PE), Sleep Apnea/CPAP/BIPAP, Thyroid Disorder Additional Past Medical History / Comment(s): Morbid obesity, obstructive sleep apnea uses CPAP-uses O2 at 5 L during night with cpap,SOB,history of peripheral neuropathy severe associated related to diabetes mellitus, gait dysfunction and frequent falls-uses w/c-able to stand to transfer, chronic back pain, gout, BPH, TIA/CVA-loyda arm and leg weakness, previous history of C. diff colitis back in 2010,hypothyroidism,colon polyps Last Myocardial Infarction Date:: 2010 History of Any Multi-Drug Resistant Organisms: None Reported Date of last positivie culture/infection: None MDRO Source:: None Past Surgical History: Hernia Repair Additional Past Surgical History / Comment(s): hiatal hernia repair x 2, umbilical hernia repair,2nd digit rt hand amputated Past Anesthesia/Blood Transfusion Reactions: No Reported Reaction Past Psychological History: Bipolar, Depression, PTSD Smoking Status: Never smoker Past Alcohol Use History: None Reported Past Drug Use History: None Reported - Past Family History Father Family Medical History: Cancer Additional Family Medical History / Comment(s): lung Mother Family Medical History: Cancer Additional Family Medical History / Comment(s): bladder General Exam Limitations: physical limitation Course Vital Signs 08/20/18 08/20/18 08/20/18 19:01 20:05 21:00 Temperature 97.7 F Pulse Rate 51 L 55 L 51 L Respiratory 18 24 20 Rate Blood Pressure 149/81 164/78 158/77 O2 Sat by Pulse 98 98 98 Oximetry Medical Decision Making - Lab Data Result diagrams: 08/20/18 20:10 08/20/18 20:10 Lab Results 08/20/18 08/20/18 08/20/18 Range/Units 20:10 20:10 20:10 WBC 4.3 (3.8-10.6) k/uL RBC 3.95 L (4.30-5.90) m/uL Hgb 10.9 L (13.0-17.5) gm/dL Hct 32.8 L (39.0-53.0) % MCV 83.0 (80.0-100.0) fL MCH 27.6 (25.0-35.0) pg MCHC 33.2 (31.0-37.0) g/dL RDW 15.7 H (11.5-15.5) % Plt Count 132 L (150-450) k/uL Neutrophils % 63 % Lymphocytes % 26 % Monocytes % 6 % Eosinophils % 2 % Basophils % 1 % Neutrophils # 2.7 (1.3-7.7) k/uL Lymphocytes # 1.2 (1.0-4.8) k/uL Monocytes # 0.3 (0-1.0) k/uL Eosinophils # 0.1 (0-0.7) k/uL Basophils # 0.0 (0-0.2) k/uL PT (9.0-12.0) sec INR (<1.2) APTT (22.0-30.0) sec Sodium 144 (137-145) mmol/L Potassium 4.6 (3.5-5.1) mmol/L Chloride 106 (98-107) mmol/L Carbon Dioxide 28 (22-30) mmol/L Anion Gap 10 mmol/L BUN 28 H (9-20) mg/dL Creatinine 0.79 (0.66-1.25) mg/dL Est GFR (CKD-EPI)AfAm >90 (>60 ml/min/1.73 sqM) Est GFR (CKD-EPI)NonAf >90 (>60 ml/min/1.73 sqM) Glucose 154 H (74-99) mg/dL Plasma Lactic Acid Anthony 1.0 (0.7-2.0) mmol/L Calcium 9.9 (8.4-10.2) mg/dL Magnesium 2.2 (1.6-2.3) mg/dL Total Bilirubin 0.4 (0.2-1.3) mg/dL AST 63 H (17-59) U/L ALT 37 (21-72) U/L Alkaline Phosphatase 79 (38-126) U/L Ammonia 17 (<30) umol/L Troponin I (0.000-0.034) ng/mL Total Protein 7.5 (6.3-8.2) g/dL Albumin 4.5 (3.5-5.0) g/dL TSH 2.360 (0.465-4.680) mIU/L Urine Color Urine Appearance (Clear) Urine pH (5.0-8.0) Ur Specific [place] (1.001-1.035) Urine Protein (Negative) Urine Glucose (UA) (Negative) Urine Ketones (Negative) Urine Blood (Negative) Urine Nitrite (Negative) Urine Bilirubin (Negative) Urine Urobilinogen (<2.0) mg/dL Ur Leukocyte Esterase (Negative) Urine RBC (0-5) /hpf Urine WBC (0-5) /hpf Urine WBC Clumps (None) /hpf Ur Squamous Epith Cells (0-4) /hpf Urine Bacteria (None) /hpf Urine Mucus (None) /hpf 08/20/18 08/20/18 08/20/18 Range/Units 20:10 20:10 21:18 WBC (3.8-10.6) k/uL RBC (4.30-5.90) m/uL Hgb (13.0-17.5) gm/dL Hct (39.0-53.0) % MCV (80.0-100.0) fL MCH (25.0-35.0) pg MCHC (31.0-37.0) g/dL RDW (11.5-15.5) % Plt Count (150-450) k/uL Neutrophils % % Lymphocytes % % Monocytes % % Eosinophils % % Basophils % % Neutrophils # (1.3-7.7) k/uL Lymphocytes # (1.0-4.8) k/uL Monocytes # (0-1.0) k/uL Eosinophils # (0-0.7) k/uL Basophils # (0-0.2) k/uL PT 10.7 (9.0-12.0) sec INR 1.0 (<1.2) APTT 27.7 (22.0-30.0) sec Sodium (137-145) mmol/L Potassium (3.5-5.1) mmol/L Chloride (98-107) mmol/L Carbon Dioxide (22-30) mmol/L Anion Gap mmol/L BUN (9-20) mg/dL Creatinine (0.66-1.25) mg/dL Est GFR (CKD-EPI)AfAm (>60 ml/min/1.73 sqM) Est GFR (CKD-EPI)NonAf (>60 ml/min/1.73 sqM) Glucose (74-99) mg/dL Plasma Lactic Acid Anthony (0.7-2.0) mmol/L Calcium (8.4-10.2) mg/dL Magnesium (1.6-2.3) mg/dL Total Bilirubin (0.2-1.3) mg/dL AST (17-59) U/L ALT (21-72) U/L Alkaline Phosphatase (38-126) U/L Ammonia (<30) umol/L Troponin I 0.023 (0.000-0.034) ng/mL Total Protein (6.3-8.2) g/dL Albumin (3.5-5.0) g/dL TSH (0.465-4.680) mIU/L Urine Color Yellow Urine Appearance Turbid (Clear) Urine pH 5.5 (5.0-8.0) Ur Specific [place] 1.027 (1.001-1.035) Urine Protein 2+ H (Negative) Urine Glucose (UA) Negative (Negative) Urine Ketones Negative (Negative) Urine Blood Small H (Negative) Urine Nitrite Negative (Negative) Urine Bilirubin Negative (Negative) Urine Urobilinogen <2.0 (<2.0) mg/dL Ur Leukocyte Esterase Large H (Negative) Urine RBC 11 H (0-5) /hpf Urine WBC >182 H (0-5) /hpf Urine WBC Clumps Many H (None) /hpf Ur Squamous Epith Cells 3 (0-4) /hpf Urine Bacteria Moderate H (None) /hpf Urine Mucus Few H (None) /hpf Disposition Clinical Impression: Generalized weakness, Urinary tract infection Disposition: ADMITTED IP TO THIS HOSP Condition: Fair Referrals: [facility],Clinic [Primary Care Provider] - 1-2 days Decision Time: 22:21
[2018-08-20 20:25] LABS: Basophils % (A) 1 %; Eosinophils # (A) 0.1 k/uL (0-0.7); Eosinophils % (A) 2 %; HCT 32.8 % (39.0-53.0); HGB 10.9 gm/dL (13.0-17.5); Lymphocytes # (A) 1.2 k/uL (1.0-4.8); Lymphocytes % (A) 26 %; MCH 27.6 pg (25.0-35.0); MCHC 33.2 g/dL (31.0-37.0); Mean Platelet Volume 7.8; Monocytes # (A) 0.3 k/uL (0-1.0); Monocytes % (A) 6 %; Neutrophils # (A) 2.7 k/uL (1.3-7.7); Neutrophils % (A) 63 %; Platelet Count 132 k/uL (150-450); RBC 3.95 m/uL (4.30-5.90); RDW 15.7 % (11.5-15.5); WBC 4.3 k/uL (3.8-10.6)
[2018-08-20 20:34] LABS: Partial Thromboplastin Time 27.7 sec (22.0-30.0); Prothrombin Time 10.7 sec (9.0-12.0)
[2018-08-20 20:41] LABS: Anion Gap 10 mmol/L; Blood Urea Nitrogen 28 mg/dL (9-20); Carbon Dioxide 28 mmol/L (22-30); Chloride 106 mmol/L (98-107); Glucose 154 mg/dL (74-99); Potassium 4.6 mmol/L (3.5-5.1); Sodium 144 mmol/L (137-145)
[2018-08-20 20:42] LABS: ALT 37 U/L (21-72); AST 63 U/L (17-59); Albumin 4.5 g/dL (3.5-5.0); Alkaline Phosphatase 79 U/L (38-126); Calcium 9.9 mg/dL (8.4-10.2); Magnesium 2.2 mg/dL (1.6-2.3); Total Bilirubin 0.4 mg/dL (0.2-1.3); Total Protein 7.5 g/dL (6.3-8.2)
--- NOTE | 2018-08-20 20:58 | XR ---
EXAMINATION TYPE: XR chest 2V DATE OF EXAM: 08/20/2018 COMPARISON: 03/06/2018 HISTORY: Weakness TECHNIQUE: Frontal and lateral views of the chest are obtained. FINDINGS: There is some coarse density in the lower lung mukherjee. Heart appears enlarged. There is no heart failure. There is no pleural effusion. IMPRESSION: Mild pulmonary fibrotic changes. No heart failure. No significant change compared to old exam.
[2018-08-20 21:28] LABS: Appearance,Urine Turbid (Clear); Bacteria,Urine Moderate /hpf; Bilirubin,Urine Negative (Negative); Blood,Urine Small (Negative); Color,Urine Yellow; Glucose,Urine (UA) Negative (Negative); Ketones,Urine Negative (Negative); Leukocyte Esterase,Urine Large (Negative); Mucus,Urine Few /hpf; Nitrite,Urine Negative (Negative); PH, Urine 5.5 (5.0-8.0); Protein,Urine 2+ (Negative); RBC,Urine 11 /hpf (0-5); Specific Gravity,Urine 1.027 (1.001-1.035); Squamous Epithelial Cell,Urine 3 /hpf (0-4); Urobilinogen,Urine <2.0 mg/dL (<2.0)
[2018-08-20] MEDS ORDERED: NALOXONE 0.4 MG/ML 1 ML VIAL IV PRN (22:22)
[2018-08-20] MEDS ORDERED: BACLOFEN 10 MG TAB PO PRN (22:23)
[2018-08-21 03:46] LABS: VBG PH 7.28 (7.31-7.41)
[2018-08-21] MEDS: LEVOTHYROXINE 50 MCG TAB PO SCH (06:15)
[2018-08-21] MEDS: SODIUM CHLORIDE 0.9% 1,000 ML IV SCH (06:15)
[2018-08-21 06:26] VITALS: BMI 34.8
[2018-08-21] MEDS: BACLOFEN 10 MG TAB PO SCH ×3 (08:00→20:45)
[2018-08-21] MEDS: CARVEDILOL 12.5 MG TAB PO SCH ×2 (08:00→17:02)
[2018-08-21] MEDS: ALLOPURINOL 100 MG TAB PO SCH ×2 (08:00→20:43)
[2018-08-21] MEDS: CLOPIDOGREL 75 MG TAB PO SCH (08:00)
[2018-08-21] MEDS: ARTIFICIAL TEARS-HYPROMELLOSE DROPS 15 ML BTL BOTH EYES SCH ×4 (08:00→20:50)
[2018-08-21] MEDS: amLODIPine 10 MG TAB PO SCH (08:00)
[2018-08-21] MEDS: carBAMazepine 200 MG TAB PO SCH ×3 (08:00→20:43)
[2018-08-21] MEDS ORDERED: clonazePAM 0.5 MG TAB PO PRN (09:00)
[2018-08-21] MEDS: ALBUTEROL NEBULIZED 2.5 MG/3 ML INHALATION PRN ×2 (12:17→16:00)
[2018-08-21 12:22] LABS: Glucose,Whole Blood 290 mg/dL (75-99)
[2018-08-21] MEDS: ACETAMINOPHEN TAB 325 MG TAB PO PRN ×2 (12:31→21:52)
[2018-08-21] MEDS: INSULIN ASPART (NovoLOG) 100 UNIT/ML VIAL SQ SCH ×5 (12:31→20:49)
[2018-08-21 17:01] LABS: Glucose,Whole Blood 165 mg/dL (75-99)
[2018-08-21 20:42] LABS: Glucose,Whole Blood 201 mg/dL (75-99)
[2018-08-21] MEDS: INSULIN DETEMIR (LEVEMIR) 100 UNIT/ML SYR SQ SCH (20:49)
--- NOTE | 2018-08-21 22:16 | P.HPIM ---
History of Present Illness H&P Date: 08/21/18 Chief Complaint: Decreased responsiveness Patient is a 68-year-old male with a known history of CVA, gait dysfunction and frequent falls uses a wheelchair, hypertension, diabetes type 2 insulin- dependent, GERD, history of [place] and history of pulmonary embolism and obstructive sleep apnea as well as hypothyroidism presents to ER with complaints of generalized weakness. Patient was in his usual state of health earlier yesterday. He went on to take a nap and after several hours of sleeping patient was difficult to arouse by family members. Patient's states she had to do sternal rub to wake him up. Patient has been feeling generally weak. Patient denied chest pain or shortness of breath. No cough or sputum production. No fever no chills. Chest x-ray showed mild pulmonary fibrotic changes. No heart failure. No significant change compared to old exam. Neck EKG showed sinus bradycardia WBC 4.3 hemoglobin 10 BUN 28 Urinalysis showed greater than 182 WBC and increased RBCs. Large leukocyte esterase. Review of Systems Constitutional: Patient denies any fever or chills . Has generalized weakness and malaise.. Abdomen: Patient denied nausea vomiting and diarrhea and abdominal pain. Cardiovascular: Patient denies any chest pain or short of breath no palpitations. No leg swelling Respiratory: patient denied any cough is from production. No shortness of breath Neurologic: Patient denied any numbness or tingling headache. Musculoskeletal: Patient denies any complaints of joint swelling or deformity. Complete review of systems could not be obtained from the patient Past Medical History Past Medical History: CVA/TIA, Diabetes Mellitus, Deep Vein Thrombosis (DVT), GERD/Reflux, Hypertension, Myocardial Infarction ([place]), Prostate Disorder, Pulmonary Embolus (PE), Sleep Apnea/CPAP/BIPAP, Thyroid Disorder Additional Past Medical History / Comment(s): Morbid obesity, obstructive sleep apnea uses CPAP-uses O2 at 5 L during night with cpap,SOB,history of peripheral neuropathy severe associated related to diabetes mellitus, gait dysfunction and frequent falls-uses w/c-able to stand to transfer, chronic back pain, gout, BPH, TIA/CVA-loyda arm and leg weakness, previous history of C. diff colitis back in 2010,hypothyroidism,colon polyps Last Myocardial Infarction Date:: 2010 History of Any Multi-Drug Resistant Organisms: None Reported Date of last positivie culture/infection: None MDRO Source:: None Past Surgical History: Hernia Repair Additional Past Surgical History / Comment(s): hiatal hernia repair x 2, umbilical hernia repair,2nd digit rt hand amputated Past Anesthesia/Blood Transfusion Reactions: No Reported Reaction Past Psychological History: Bipolar, Depression, PTSD Additional Psychological History / Comment(s): severe PTSD. pt stated he always feels depressed but currently no thoughts of wanting to harm himself. pt lives with his and 2 pets dogs. has mechanical lift into home. w/c, electric scooter, cpap, o2. has helper come in to care for him when his needs to be away from home. 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 Smoking Status: Never smoker Past Alcohol Use History: None Reported Additional Past Alcohol Use History / Comment(s): Patient is a lifelong n onsmoker. He has used marijuana years ago but none recently. He denies any alcohol use. He lives at home with his and 2 dogs. Patient served in the [employer] in [place] and had a back injury at that time. Past Drug Use History: None Reported - Past Family History Father Family Medical History: Cancer Additional Family Medical History / Comment(s): lung Mother Family Medical History: Cancer Additional Family Medical History / Comment(s): bladder Medications and Allergies Home Medications Medication Instructions Recorded Confirmed Type Allopurinol [Zyloprim] 100 mg PO BID 12/02/14 08/20/18 History Ergocalciferol [Vitamin D2 100,000 unit PO MO 12/02/14 08/20/18 History (DRISDOL)] Finasteride [Proscar] 5 mg PO DAILY 12/02/14 08/20/18 History Insulin Aspart [NovoLOG] 40 units SQ AC-TID 12/02/14 08/20/18 History Levothyroxine Sodium [Synthroid] 50 mcg PO DAILY 12/02/14 08/20/18 History [place]-3 Fatty Acids/Fish Oil [Fish 2 cap PO BID 12/02/14 08/20/18 History Oil 1,000 mg Softgel] Pravastatin Sodium [Pravachol] 80 mg PO HS 12/02/14 08/20/18 History Sertraline [Zoloft] 200 mg PO DAILY 12/02/14 08/20/18 History Tamsulosin [Flomax] 0.8 mg PO HS 12/02/14 08/20/18 History Ziprasidone [Geodon] 20 mg PO TID 12/02/14 08/20/18 History carBAMazepine [TEGretol] 400 mg PO TID 12/02/14 08/20/18 History Clopidogrel Bisulfate [Plavix] 75 mg PO DAILY #20 tab 10/01/15 08/20/18 Rx Gemfibrozil [Lopid] 600 mg PO BID 12/21/16 08/20/18 History Multivitamins, Thera [Multivitamin 1 tab PO DAILY 12/21/16 08/20/18 History (formulary)] Baclofen [Lioresal] 10 mg PO BID 03/14/17 08/20/18 History Ranitidine HCl [Zantac] 300 mg PO HS 07/01/17 08/20/18 History Baclofen [Lioresal] 10 mg PO DAILY PRN 03/06/18 08/20/18 History Baclofen [Lioresal] 20 mg PO HS 03/06/18 08/20/18 History Carboxymethylcellulose Sodium 1 drop BOTH EYES QID 03/06/18 08/20/18 History [Restore Plus] Dextrose Chew [Glucose Chew Tab] 4 gm PO TID PRN 03/06/18 08/20/18 History Loratadine [Claritin] 10 mg PO DAILY 03/06/18 08/20/18 History Pregabalin [Lyrica] 100 mg PO TID 03/06/18 08/20/18 History metFORMIN HCL 1,000 mg PO BID 03/06/18 08/20/18 History Albuterol Sulfate [Proair Hfa] 2 puff INHALATION RT-Q4H PRN 08/20/18 08/20/18 History Carvedilol [Coreg] 12.5 mg PO BID 08/20/18 08/20/18 History Diclofenac Sodium Gel [Voltaren 1 applic TOPICAL BID PRN 08/20/18 08/20/18 History Gel] Fluticasone Nasal [place] [Flonase 1 spray EA NOSTRIL BID 08/20/18 08/20/18 History Nasal [place]] INSULIN ASPART (NovoLOG) [NovoLOG See Protocol SQ AC-TID 08/20/18 08/20/18 History (formulary)] Insulin Glargine,Hum.rec.anlog 120 unit SQ HS 08/20/18 08/20/18 History [Lantus Solostar] Miconazole Nitrate [Lotrimin AF 1 applic TOPICAL BID 08/20/18 08/20/18 History Powder] Pantoprazole Sodium [Protonix] 40 mg PO BID 08/20/18 08/20/18 History Sodium Chloride 5% Ophth Oint 1 applic BOTH EYES HS 08/20/18 08/20/18 History [Celeste 128] Ziprasidone HCl [Geodon] 20 mg PO DAILY PRN 08/20/18 08/20/18 History amLODIPine [Norvasc] 10 mg PO DAILY 08/20/18 08/20/18 History clonazePAM [KlonoPIN] 0.5 mg PO TID PRN 08/20/18 08/20/18 History Allergies Allergy/AdvReac Type Severity Reaction Status Date / Time aspirin Allergy ABDOMINAL Verified 08/20/18 19:17 DISCOMFORT etodolac [From Lodine] Allergy Unknown Verified 08/20/18 19:17 oxybutynin Allergy Unknown Verified 08/20/18 19:17 Physical Exam Vitals: Vital Signs Temp Pulse Resp BP Pulse Ox 08/21/18 05:52 98.0 F 67 19 154/82 95 08/21/18 05:00 62 16 106/78 08/21/18 03:00 64 16 116/55 97 08/21/18 02:00 55 L 14 125/62 08/21/18 01:00 54 L 120/64 96 08/21/18 00:00 50 L 23 120/64 99 08/20/18 23:00 49 L 18 120/51 97 08/20/18 22:00 51 L 17 123/64 99 08/20/18 21:00 51 L 8 L 153/75 99 08/20/18 20:05 55 L 24 164/78 98 08/20/18 20:00 52 L 22 154/84 98 08/20/18 19:01 97.7 F 51 L 18 149/81 97 Intake and Output 08/20/18 08/21/18 08/21/18 22:59 06:59 14:59 Other: Voiding Method Diaper Incontinent # Voids 1 Weight 113.217 kg PHYSICAL EXAMINATION: Patient is lying in the bed comfortably, no acute distress, awake alert and oriented.. HEENT: Normocephalic. Neck is supple. Pupils reactive. Nostrils clear. Oral cavity is moist. Ears reveal no drainage. Neck reveals no JVD, carotid bruits, or thyromegaly. CHEST EXAMINATION: Trachea is central. Symmetrical expansion. Bibasilar diminished air entry. Lung mukherjee clear to auscultation and percussion. CARDIAC: Normal S1, S2 with no gallops. No murmurs ABDOMEN: Soft. Bowel sounds normal. No organomegaly. No abdominal bruits. Extremities: reveal no edema. No clubbing or cyanosis Neurologically awake, alert, oriented x2-3. Able to move all his extremities while in bed. Skin: No rash or skin lesions. Psychiatric: Coperative. Could not be assessed Musculoskeletal: No joint swelling or deformity. Normal range of motion. Results CBC & Chem 7: 08/20/18 20:10 08/20/18 20:10 Labs: Abnormal Lab Results - Last 24 Hours (Table) 08/20/18 08/20/18 08/20/18 Range/Units 20:10 20:10 21:18 RBC 3.95 L (4.30-5.90) m/uL Hgb 10.9 L (13.0-17.5) gm/dL Hct 32.8 L (39.0-53.0) % RDW 15.7 H (11.5-15.5) % Plt Count 132 L (150-450) k/uL VBG pH (7.31-7.41) VBG pCO2 (37-51) mmHg VBG HCO3 (24-28) mmol/L BUN 28 H (9-20) mg/dL Glucose 154 H (74-99) mg/dL AST 63 H (17-59) U/L Urine Protein 2+ H (Negative) Urine Blood Small H (Negative) Ur Leukocyte Esterase Large H (Negative) Urine RBC 11 H (0-5) /hpf Urine WBC >182 H (0-5) /hpf Urine WBC Clumps Many H (None) /hpf Urine Bacteria Moderate H (None) /hpf Urine Mucus Few H (None) /hpf 08/21/18 Range/Units 03:27 RBC (4.30-5.90) m/uL Hgb (13.0-17.5) gm/dL Hct (39.0-53.0) % RDW (11.5-15.5) % Plt Count (150-450) k/uL VBG pH 7.28 L (7.31-7.41) VBG pCO2 64 H (37-51) mmHg VBG HCO3 29 H (24-28) mmol/L BUN (9-20) mg/dL Glucose (74-99) mg/dL AST (17-59) U/L Urine Protein (Negative) Urine Blood (Negative) Ur Leukocyte Esterase (Negative) Urine RBC (0-5) /hpf Urine WBC (0-5) /hpf Urine WBC Clumps (None) /hpf Urine Bacteria (None) /hpf Urine Mucus (None) /hpf Microbiology - Last 24 Hours (Table) 08/20/18 21:18 Urine Culture - Preliminary Urine,Voided Thrombosis Risk Factor Assmnt - DVT/VTE Prophylaxis DVT/VTE Prophylaxis: Pharmacologic Prophylaxis ordered - Choose All That Apply Any of the Below Risk Factors Present?: Yes Each Factor Represents 1 point: Obesity (BMI >25) Other Risk Factors: Yes Each Risk Factor Represents 2 Points: Age 61-74 years Thrombosis Risk Factor Assessment Total Risk Factor Score: 3 Thrombosis Risk Factor Assessment Level: Moderate Risk Assessment and Plan Assessment: altered mental status possible metabolic encephalopathy, which is multifactorial. UTI, volume depletion and medications including baclofen and Geodon at home. Acute urinary tract infection. Diabetes type 2 insulin-dependent History of CVA bilateral arm and leg weakness Hypertension GERD BPH History of PE/DVT obstructive sleep apnea on CPAP. Use oxygen at night. Diabetic peripheral neuropathy Gait dysfunction and frequent falls uses wheelchair/medical debility Chronic back pain Gout Bipolar/depression/PTSD Obesity with BMI 34.8 DVT prophylaxis Plan: Patient will be continued on IV hydration and encourage oral intake. Continue with antibiotics no cough ceftriaxone and follow-up urine culture report Will hold narcotic pain medications and Geodon. PTOT will be consulted. Continue with insulin dosing and follow up closely Further recommendations based on the clinical course. Prognosis is guarded with multiple medical problems and comorbid conditions. Time with Patient: Greater than 30
[2018-08-22] MEDS: SODIUM CHLORIDE 0.9% 1,000 ML IV SCH ×2 (00:52→22:55)
[2018-08-22] MEDS: HEPARIN SODIUM,PORCINE 5,000 UNIT/ML 1 ML VIAL SQ SCH ×4 (00:53→22:54)
[2018-08-22] MEDS: HYDROcodone/APAP 5-325MG 1 EACH TAB PO PRN ×3 (01:22→22:54)
[2018-08-22 06:10] LABS: Basophils % (A) 0 %; Eosinophils # (A) 0.1 k/uL (0-0.7); Eosinophils % (A) 1 %; HCT 33.2 % (39.0-53.0); HGB 10.9 gm/dL (13.0-17.5); Lymphocytes # (A) 1.2 k/uL (1.0-4.8); Lymphocytes % (A) 21 %; MCH 27.2 pg (25.0-35.0); MCHC 32.8 g/dL (31.0-37.0); MCV 82.8 fL (80.0-100.0); Mean Platelet Volume 8.9; Monocytes # (A) 0.3 k/uL (0-1.0); Monocytes % (A) 5 %; Neutrophils % (A) 71 %; Platelet Count 145 k/uL (150-450); RDW 15.7 % (11.5-15.5); WBC 5.7 k/uL (3.8-10.6)
[2018-08-22] MEDS: CARVEDILOL 12.5 MG TAB PO SCH ×2 (06:12→16:11)
[2018-08-22] MEDS: LEVOTHYROXINE 50 MCG TAB PO SCH (06:12)
[2018-08-22 06:39] LABS: Anion Gap 9 mmol/L; Blood Urea Nitrogen 24 mg/dL (9-20); Carbon Dioxide 31 mmol/L (22-30); Chloride 102 mmol/L (98-107); Glucose 211 mg/dL (74-99); Potassium 4.8 mmol/L (3.5-5.1); Sodium 142 mmol/L (137-145)
[2018-08-22 07:07] LABS: Glucose,Whole Blood 216 mg/dL (75-99)
[2018-08-22] MEDS: INSULIN ASPART (NovoLOG) 100 UNIT/ML VIAL SQ SCH ×7 (07:53→20:45)
[2018-08-22] MEDS: ALLOPURINOL 100 MG TAB PO SCH ×2 (07:54→20:45)
[2018-08-22] MEDS: ARTIFICIAL TEARS-HYPROMELLOSE DROPS 15 ML BTL BOTH EYES SCH ×4 (07:54→20:47)
[2018-08-22] MEDS: amLODIPine 10 MG TAB PO SCH (07:54)
[2018-08-22] MEDS: FINASTERIDE 5 MG TAB PO SCH (07:54)
[2018-08-22] MEDS: CLOPIDOGREL 75 MG TAB PO SCH (07:54)
[2018-08-22] MEDS: carBAMazepine 200 MG TAB PO SCH ×3 (07:54→20:45)
[2018-08-22] MEDS: PANTOPRAZOLE 40 MG TABLET PO SCH ×2 (07:55→20:44)
[2018-08-22] MEDS: metFORMIN 500 MG TAB PO SCH ×2 (07:55→20:45)
[2018-08-22] MEDS: BACLOFEN 10 MG TAB PO SCH ×3 (07:55→20:45)
[2018-08-22] MEDS ORDERED: DOCUSATE 283 MG/5 ML ENEMA RECTAL PRN (10:51)
[2018-08-22 12:05] LABS: Glucose,Whole Blood 132 mg/dL (75-99)
[2018-08-22] MEDS ORDERED: INSULIN ASPART (NovoLOG) 100 UNIT/ML VIAL SQ ONE (12:29)
--- NOTE | 2018-08-22 13:01 | P.PN ---
Subjective Patient is a 68-year-old male with a known history of CVA, gait dysfunction and frequent falls uses a wheelchair, hypertension, diabetes type 2 insulin- dependent, GERD, history of [place] and history of pulmonary embolism and obstructive sleep apnea as well as hypothyroidism presents to ER with complaints of generalized weakness. Patient was in his usual state of health earlier yesterday. He went on to take a nap and after several hours of sleeping patient was difficult to arouse by family members. Patient's states she had to do sternal rub to wake him up. Patient has been feeling generally weak. Patient denied chest pain or shortness of breath. No cough or sputum production. No fever no chills. Chest x-ray showed mild pulmonary fibrotic changes. No heart failure. No significant change compared to old exam. Neck EKG showed sinus bradycardia WBC 4.3 hemoglobin 10 BUN 28 Urinalysis showed greater than 182 WBC and increased RBCs. Large leukocyte esterase. 08/22/2018 Patient is still a little confused and lethargic although he is oriented to place and he knows why he is in the hospital. He still complaining of from dys uria and suprapubic tenderness. We don't know CAT scan of the head. We'll add Norvasc for him. His urine culture is growing enterococcus. We'll start him on Unasyn and asked for infectious disease consult Review of systems Constitutional: Patient denies any fever or chills . Has generalized weakness and malaise.. Abdomen: Patient denied nausea vomiting and diarrhea and abdominal pain. Cardiovascular: Patient denies any chest pain or short of breath no palpita tions. No leg swelling Respiratory: patient denied any cough is from production. No shortness of b reath Neurologic: Patient denied any numbness or tingling headache. Musculoskeletal: Patient denies any complaints of joint swelling or deformity. Objective - Vital Signs Vital signs: Vital Signs Temp 98.6 F 08/22/18 05:14 Pulse 64 08/22/18 05:14 Resp 24 08/22/18 05:14 BP 177/79 08/22/18 05:14 Pulse Ox 99 08/22/18 05:14 Intake & Output 08/21/18 08/22/18 08/22/18 18:59 06:59 18:59 Intake Total 400 500 Balance 400 500 Intake: Oral 400 500 Other: Voiding Method Diaper Diaper Incontinent Incontinent # Voids 6 2 # Bowel Movements 0 0 - Exam PHYSICAL EXAMINATION: Patient is lying in the bed comfortably, no acute distress, awake alert and oriented.. HEENT: Normocephalic. Neck is supple. Pupils reactive. Nostrils clear. Oral cavity is moist. Ears reveal no drainage. Neck reveals no JVD, carotid bruits, or thyromegaly. CHEST EXAMINATION: Trachea is central. Symmetrical expansion. Bibasilar diminished air entry. Lung mukherjee clear to auscultation and percussion. CARDIAC: Normal S1, S2 with no gallops. No murmurs ABDOMEN: Soft. Bowel sounds normal. No organomegaly. No abdominal bruits. Extremities: reveal no edema. No clubbing or cyanosis Neurologically awake, alert, oriented x2-3. Able to move all his extremities while in bed. Skin: No rash or skin lesions. Psychiatric: Coperative. Could not be assessed Musculoskeletal: No joint swelling or deformity. Normal range of motion. - Labs CBC & Chem 7: 08/22/18 05:58 08/22/18 05:58 Labs: Abnormal Lab Results - Last 24 Hours (Table) 08/21/18 08/21/18 08/22/18 Range/Units 16:59 20:30 05:58 RBC 4.00 L (4.30-5.90) m/uL Hgb 10.9 L (13.0-17.5) gm/dL Hct 33.2 L (39.0-53.0) % RDW 15.7 H (11.5-15.5) % Plt Count 145 L (150-450) k/uL Carbon Dioxide (22-30) mmol/L BUN (9-20) mg/dL Glucose (74-99) mg/dL POC Glucose (mg/dL) 165 H 201 H (75-99) mg/dL 08/22/18 08/22/18 08/22/18 Range/Units 05:58 07:02 12:00 RBC (4.30-5.90) m/uL Hgb (13.0-17.5) gm/dL Hct (39.0-53.0) % RDW (11.5-15.5) % Plt Count (150-450) k/uL Carbon Dioxide 31 H (22-30) mmol/L BUN 24 H (9-20) mg/dL Glucose 211 H (74-99) mg/dL POC Glucose (mg/dL) 216 H 132 H (75-99) mg/dL Microbiology - Last 24 Hours (Table) 08/20/18 21:18 Urine Culture - Preliminary Urine,Voided Group D Enterococcus Assessment and Plan Assessment: Assessment and Plan Assessment: altered mental status possible metabolic encephalopathy, which is mul tifactorial. UTI, check CT of the head Acute urinary tract infection. Diabetes type 2 insulin-dependent History of CVA bilateral arm and leg weakness Hypertension GERD BPH History of PE/DVT obstructive sleep apnea on CPAP. Use oxygen at night. Diabetic peripheral neuropathy Gait dysfunction and frequent falls uses wheelchair/medical debility Chronic back pain Gout Bipolar/depression/PTSD Obesity with BMI 34.8 DVT prophylaxis Plan: Patient will be continued on IV hydration and encourage oral intake. Continue with antibiotics no cough Unasyn and follow-up urine culture report Will hold narcotic pain medications and Geodon. PTOT will be consulted. Continue with insulin dosing and follow up closely Further recommendations based on the clinical course. Prognosis is guarded with multiple medical problems and comorbid conditions.
--- NOTE | 2018-08-22 14:42 | CT ---
EXAMINATION TYPE: CT brain wo con DATE OF EXAM: 08/22/2018 COMPARISON: 03/26/2017 HISTORY: altered mental status CT DLP: 1116 mGycm Automated exposure control for dose reduction was used. FINDINGS: There is cerebral cortical atrophy. There is no mass effect nor midline shift. There is no sign of in tracranial hemorrhage. Calvarium is intact. IMPRESSION: MILD ATROPHY. NO ACUTE INTRACRANIAL ABNORMALITY. THERE IS CLEARING OF ETHMOID SINUSITIS COMPARED TO O LD EXAM.
[2018-08-22] MEDS: AMPICILLIN-SULBACTAM 3 GM in SODIUM CHLORIDE 0.9% 100 ML IVPB SCH ×3 (15:00→23:00)
[2018-08-22] MEDS: hydrALAZINE HCL 10 MG TAB PO SCH ×2 (15:00→20:45)
[2018-08-22 16:58] LABS: Glucose,Whole Blood 90 mg/dL (75-99)
--- NOTE | 2018-08-22 17:03 | P.CONS ---
History of Present Illness - Reason for Consult Consult date: 08/22/18 - Chief Complaint altered mental status - History of Present Illness 68 -year-old male who has superobesity a history of stroke and what appears to be significant immobility is brought by his family where he is cared for in the family home. Is related that a and some caregivers to provide his care. Apparently the patient had worsening mental status and he took a nap but he was then difficult to arouse him because they were concerned and he was brought to hospital. The patient himself is a poor historian and is not able to relate significant history at this time. When asked questions he often mumbles and answer that is not understandable. However the patient does not complain of much pain on questioning except to his lower back. Review of Systems ROS unobtainable: due to mental status Past Medical History Past Medical History: CVA/TIA, Diabetes Mellitus, Deep Vein Thrombosis (DVT), GE RD/Reflux, Hypertension, Myocardial Infarction (SC), Prostate Disorder, Pulmonary Embolus (PE), Sleep Apnea/CPAP/BIPAP, Thyroid Disorder Additional Past Medical History / Comment(s): Morbid obesity, obstructive sleep apnea uses CPAP-uses O2 at 5 L during night with cpap,SOB,history of peripheral neuropathy severe associated related to diabetes mellitus, gait dysfunction and frequent falls-uses w/c-able to stand to transfer, chronic back pain, gout, BPH, TIA/CVA-loyda arm and leg weakness, previous history of C. diff colitis back in 2010,hypothyroidism,colon polyps Last Myocardial Infarction Date:: 2010 History of Any Multi-Drug Resistant Organisms: None Reported Year Discovered:: None MDRO Source:: None Past Surgical History: Hernia Repair Additional Past Surgical History / Comment(s): hiatal hernia repair x 2, umbi lical hernia repair,2nd digit rt hand amputated Past Anesthesia/Blood Transfusion Reactions: No Reported Reaction Past Psychological History: Bipolar, Depression, PTSD Additional Psychological History / Comment(s): severe PTSD. pt stated he always feels depressed but currently no thoughts of wanting to harm himself. pt lives with his and 2 pets dogs. has mechanical lift into home. w/c, electric scooter, cpap, o2. . has helper come in to care for him when his needs to be away from home. has life alert. 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 Smoking Status: Never smoker Past Alcohol Use History: None Reported Additional Past Alcohol Use History / Comment(s): Patient is a lifelong nonsmoker. He has used marijuana years ago but none recently. He denies any alcohol use. He lives at home with his and 2 dogs. Patient served in the [employer] in [place] and had a back injury at that time. Past Drug Use History: None Reported - Past Family History Father Family Medical History: Cancer Additional Family Medical History / Comment(s): lung Mother Family Medical History: Cancer Additional Family Medical History / Comment(s): bladder Medications and Allergies Home Medications and Allergies Comment(s): Current Medications Acetaminophen (Tylenol Tab) 650 mg PO Q6HR PRN PRN Reason: Fever and/ or Pain Last Admin: 08/21/18 21:52 Dose: 650 mg Documented by: Hydrocodone Bitart/Acetaminophen ([place] 5-325) 1 each PO Q6HR PRN PRN Reason: Pain Last Admin: 08/22/18 08:01 Dose: 1 each Documented by: Albuterol Sulfate (Ventolin Nebulized) 2.5 mg INHALATION RT-Q4H PRN PRN Reason: Shortness Of Breath Last Admin: 08/21/18 16:00 Dose: 2.5 mg Documented by: Allopurinol (Zyloprim) 100 mg PO BID [facility] Last Admin: 08/22/18 07:54 Dose: 100 mg Documented by: Amlodipine Besylate (Norvasc) 10 mg PO DAILY [facility] Last Admin: 08/22/18 07:54 Dose: 10 mg Documented by: Artificial Tears (Artificial Tear Drops) 1 drops BOTH EYES QID [facility] Last Admin: 08/22/18 12:46 Dose: Not Given Documented by: Baclofen (Lioresal) 10 mg PO BID [facility] Last Admin: 08/22/18 07:55 Dose: 10 mg Documented by: Baclofen (Lioresal) 10 mg PO DAILY PRN PRN Reason: Muscle Spasm Baclofen (Lioresal) 20 mg PO HS [facility] Last Admin: 08/21/18 20:43 Dose: 20 mg Documented by: Carbamazepine (Tegretol) 400 mg PO TID [facility] Last Admin: 08/22/18 16:11 Dose: 400 mg Documented by: Carvedilol (Coreg) 12.5 mg PO BID-W/MEALS [facility] Last Admin: 08/22/18 16:11 Dose: 12.5 mg Documented by: Clonazepam (Klonopin) 0.5 mg PO TID PRN PRN Reason: Anxiety Clopidogrel Bisulfate (Plavix) 75 mg PO DAILY [facility] Last Admin: 08/22/18 07:54 Dose: 75 mg Documented by: Docusate Sodium (Colace) 100 mg PO BID [facility] Docusate Sodium (Therevac) 283 mg RECTAL DAILY PRN PRN Reason: Constipation Last Admin: 08/22/18 11:44 Dose: 283 mg Documented by: Finasteride (Proscar) 5 mg PO DAILY [facility] Last Admin: 08/22/18 07:54 Dose: 5 mg Documented by: Heparin Sodium (Porcine) (Heparin) 5,000 unit SQ Q8HR [facility] Last Admin: 08/22/18 16:11 Dose: 5,000 unit Documented by: Hydralazine HCl (Apresoline) 10 mg PO BID [facility] Last Admin: 08/22/18 15:00 Dose: 10 mg Documented by: Sodium Chloride (Saline 0.9%) 1,000 mls @ 20 mls/hr IV .Q24H [facility] Last Admin: 08/22/18 00:52 Dose: 20 mls/hr Documented by: Ampicillin Sodium/Sulbactam (Sodium 3 gm/ Sodium Chloride) 100 mls @ 200 mls/hr IVPB Q6HR [facility] Last Admin: 08/22/18 15:00 Dose: 200 mls/hr Documented by: Insulin Aspart (Novolog) 40 unit SQ AC-TID [facility] Last Admin: 08/22/18 12:33 Dose: Not Given Documented by: Insulin Aspart (Novolog) 0 unit SQ ACHS [facility]; Protocol Last Admin: 08/22/18 12:34 Dose: Not Given Documented by: Insulin Detemir (Levemir) 120 unit SQ HS [facility] Last Admin: 08/21/18 20:49 Dose: 120 unit Documented by: Levothyroxine Sodium (Synthroid) 50 mcg PO DAILY@0630 [facility] Last Admin: 08/22/18 06:12 Dose: 50 mcg Documented by: Metformin HCl (Glucophage) 1,000 mg PO BID [facility] Last Admin: 08/22/18 07:55 Dose: 1,000 mg Documented by: Naloxone HCl (Narcan) 0.2 mg IV Q2M PRN PRN Reason: Opioid Reversal Pantoprazole Sodium (Protonix) 40 mg PO BID [facility] Last Admin: 08/22/18 07:55 Dose: 40 mg Documented by: Tamsulosin HCl (Flomax) 0.8 mg PO [facility] Home Medications Medication Instructions Recorded Confirmed Type Allopurinol [Zyloprim] 100 mg PO BID 12/02/14 08/20/18 History Ergocalciferol [Vitamin D2 100,000 unit PO MO 12/02/14 08/20/18 History (DRISDOL)] Finasteride [Proscar] 5 mg PO DAILY 12/02/14 08/20/18 History Insulin Aspart [NovoLOG] 40 units SQ AC-TID 12/02/14 08/20/18 History Levothyroxine Sodium [Synthroid] 50 mcg PO DAILY 12/02/14 08/20/18 History [place]-3 Fatty Acids/Fish Oil [Fish 2 cap PO BID 12/02/14 08/20/18 History Oil 1,000 mg Softgel] Pravastatin Sodium [Pravachol] 80 mg PO HS 12/02/14 08/20/18 History Sertraline [Zoloft] 200 mg PO DAILY 12/02/14 08/20/18 History Tamsulosin [Flomax] 0.8 mg PO HS 12/02/14 08/20/18 History Ziprasidone [Geodon] 20 mg PO TID 12/02/14 08/20/18 History carBAMazepine [TEGretol] 400 mg PO TID 12/02/14 08/20/18 History Clopidogrel Bisulfate [Plavix] 75 mg PO DAILY #20 tab 10/01/15 08/20/18 Rx Gemfibrozil [Lopid] 600 mg PO BID 12/21/16 08/20/18 History Multivitamins, Thera [Multivitamin 1 tab PO DAILY 12/21/16 08/20/18 History (formulary)] Baclofen [Lioresal] 10 mg PO BID 03/14/17 08/20/18 History Ranitidine HCl [Zantac] 300 mg PO HS 07/01/17 08/20/18 History Baclofen [Lioresal] 10 mg PO DAILY PRN 03/06/18 08/20/18 History Baclofen [Lioresal] 20 mg PO HS 03/06/18 08/20/18 History Carboxymethylcellulose Sodium 1 drop BOTH EYES QID 03/06/18 08/20/18 History [Restore Plus] Dextrose Chew [Glucose Chew Tab] 4 gm PO TID PRN 03/06/18 08/20/18 History Loratadine [Claritin] 10 mg PO DAILY 03/06/18 08/20/18 History Pregabalin [Lyrica] 100 mg PO TID 03/06/18 08/20/18 History metFORMIN HCL 1,000 mg PO BID 03/06/18 08/20/18 History Albuterol Sulfate [Proair Hfa] 2 puff INHALATION RT-Q4H PRN 08/20/18 08/20/18 History Carvedilol [Coreg] 12.5 mg PO BID 08/20/18 08/20/18 History Diclofenac Sodium Gel [Voltaren 1 applic TOPICAL BID PRN 08/20/18 08/20/18 History Gel] Fluticasone Nasal [place] [Flonase 1 spray EA NOSTRIL BID 08/20/18 08/20/18 His tory Nasal [place]] INSULIN ASPART (NovoLOG) [NovoLOG See Protocol SQ AC-TID 08/20/18 08/20/18 History (formulary)] Insulin Glargine,Hum.rec.anlog 120 unit SQ HS 08/20/18 08/20/18 History [Lantus Solostar] Miconazole Nitrate [Lotrimin AF 1 applic TOPICAL BID 08/20/18 08/20/18 History Powder] Pantoprazole Sodium [Protonix] 40 mg PO BID 08/20/18 08/20/18 History Sodium Chloride 5% Ophth Oint 1 applic BOTH EYES HS 08/20/18 08/20/18 History [[place] 128] Ziprasidone HCl [Geodon] 20 mg PO DAILY PRN 08/20/18 08/20/18 History amLODIPine [Norvasc] 10 mg PO DAILY 08/20/18 08/20/18 History clonazePAM [KlonoPIN] 0.5 mg PO TID PRN 08/20/18 08/20/18 History Allergies Allergy/AdvReac Type Severity Reaction Status Date / Time aspirin Allergy ABDOMINAL Verified 08/20/18 19:17 DISCOMFORT etodolac [From Lodine] Allergy Unknown Verified 08/20/18 19:17 oxybutynin Allergy Unknown Verified 08/20/18 19:17 Physical Exam Vitals: Vital Signs Temp Pulse Resp BP Pulse Ox 08/22/18 13:55 97.9 F 57 L 18 145/74 97 08/22/18 05:14 98.6 F 64 24 177/79 99 08/21/18 23:38 24 08/21/18 21:35 98.6 F 58 L 24 155/67 99 Intake and Output 08/22/18 08/22/18 08/22/18 06:59 14:59 22:59 Intake Total 200 Balance 200 Intake: Oral 200 Other: Voiding Method Diaper Incontinent # Voids 2 4 # Bowel Movements 0 68 -year-old male with superobesity, supine with head minimally elevated is re sting quietly until he is examined HEENT: Anicteric conjunctiva are pink and moist nasal mucosa grossly intact without significant lesions, there is no thrush. Neck: The neck is supple without significant lymphadenopathy or thyromegaly. Lungs: symmetrical air entry is noted expiratory wheezes are scattered no distinct bronchial sounds all dullness or egophony Heart: irregular with an audible S1 and S2 soft S4 no murmur click or rub Abdomen: the abdomen is obese it is not tender it is not rigid with the obesity no abdominal organs are palpable Extremities: the upper extremities are without acute lesions. The lower extremities show evidence of some prior trauma is a large area of ecchymosis on the medial aspect of the left thigh there is evidence of some healing eschars on both knees Neuro: patient is arousable but he is a very poor historian. Is unable to relate much of his history. Does complain of some lower back pain Results CBC & Chem 7: 08/22/18 05:58 08/22/18 05:58 Labs: Abnormal Lab Results - Last 24 Hours (Table) 08/21/18 08/21/18 08/22/18 Range/Units 16:59 20:30 05:58 RBC 4.00 L (4.30-5.90) m/uL Hgb 10.9 L (13.0-17.5) gm/dL Hct 33.2 L (39.0-53.0) % RDW 15.7 H (11.5-15.5) % Plt Count 145 L (150-450) k/uL Carbon Dioxide (22-30) mmol/L BUN (9-20) mg/dL Glucose (74-99) mg/dL POC Glucose (mg/dL) 165 H 201 H (75-99) mg/dL 08/22/18 08/22/18 08/22/18 Range/Units 05:58 07:02 12:00 RBC (4.30-5.90) m/uL Hgb (13.0-17.5) gm/dL Hct (39.0-53.0) % RDW (11.5-15.5) % Plt Count (150-450) k/uL Carbon Dioxide 31 H (22-30) mmol/L BUN 24 H (9-20) mg/dL Glucose 211 H (74-99) mg/dL POC Glucose (mg/dL) 216 H 132 H (75-99) mg/dL Microbiology - Last 24 Hours (Table) 08/20/18 21:18 Urine Culture - Preliminary Urine,Voided Group D Enterococcus Laboratory Results WBC 5.7 k/uL (3.8-10.6) 08/22/18 05:58 RBC 4.00 m/uL (4.30-5.90) L 08/22/18 05:58 Hgb 10.9 gm/dL (13.0-17.5) L 08/22/18 05:58 Hct 33.2 % (39.0-53.0) L 08/22/18 05:58 MCV 82.8 fL (80.0-100.0) 08/22/18 05:58 MCH 27.2 pg (25.0-35.0) 08/22/18 05:58 MCHC 32.8 g/dL (31.0-37.0) 08/22/18 05:58 RDW 15.7 % (11.5-15.5) H 08/22/18 05:58 Plt Count 145 k/uL (150-450) L 08/22/18 05:58 Neutrophils % 71 % 08/22/18 05:58 Lymphocytes % 21 % 08/22/18 05:58 Monocytes % 5 % 08/22/18 05:58 Eosinophils % 1 % 08/22/18 05:58 Basophils % 0 % 08/22/18 05:58 Neutrophils # 4.0 k/uL (1.3-7.7) 08/22/18 05:58 Lymphocytes # 1.2 k/uL (1.0-4.8) 08/22/18 05:58 Monocytes # 0.3 k/uL (0-1.0) 08/22/18 05:58 Eosinophils # 0.1 k/uL (0-0.7) 08/22/18 05:58 Basophils # 0.0 k/uL (0-0.2) 08/22/18 05:58 PT 10.7 sec (9.0-12.0) 08/20/18 20:10 INR 1.0 (<1.2) 08/20/18 20:10 APTT 27.7 sec (22.0-30.0) 08/20/18 20:10 VBG pH 7.28 (7.31-7.41) L 08/21/18 03:27 VBG pCO2 64 mmHg (37-51) H 08/21/18 03:27 VBG HCO3 29 mmol/L (24-28) H 08/21/18 03:27 Sodium 142 mmol/L (137-145) 08/22/18 05:58 Potassium 4.8 mmol/L (3.5-5.1) 08/22/18 05:58 Chloride 102 mmol/L (98-107) 08/22/18 05:58 Carbon Dioxide 31 mmol/L (22-30) H 08/22/18 05:58 Anion Gap 9 mmol/L 08/22/18 05:58 BUN 24 mg/dL (9-20) H 08/22/18 05:58 Creatinine 0.96 mg/dL (0.66-1.25) 08/22/18 05:58 Est GFR (CKD-EPI)AfAm >90 (>60 ml/min/1.73 sqM) 08/22/18 05:58 Est GFR (CKD-EPI)NonAf 81 (>60 ml/min/1.73 sqM) 08/22/18 05:58 Glucose 211 mg/dL (74-99) H 08/22/18 05:58 POC Glucose (mg/dL) 132 mg/dL (75-99) H 08/22/18 12:00 POC Glu Office Asst Kelly Aguero 08/22/18 12:00 Plasma Lactic Acid Anthony 1.0 mmol/L (0.7-2.0) 08/20/18 20:10 Calcium 10.0 mg/dL (8.4-10.2) 08/22/18 05:58 Magnesium 2.2 mg/dL (1.6-2.3) 08/20/18 20:10 Total Bilirubin 0.4 mg/dL (0.2-1.3) 08/20/18 20:10 AST 63 U/L (17-59) H 08/20/18 20:10 ALT 37 U/L (21-72) 08/20/18 20:10 Alkaline Phosphatase 79 U/L (38-126) 08/20/18 20:10 Ammonia 17 umol/L (<30) 08/20/18 20:10 Troponin I 0.023 ng/mL (0.000-0.034) 08/20/18 20:10 Total Protein 7.5 g/dL (6.3-8.2) 08/20/18 20:10 Albumin 4.5 g/dL (3.5-5.0) 08/20/18 20:10 TSH 2.360 mIU/L (0.465-4.680) 08/20/18 20:10 Urine Color Yellow 08/20/18 21:18 Urine Appearance Turbid (Clear) 08/20/18 21:18 Urine pH 5.5 (5.0-8.0) 08/20/18 21:18 Ur Specific [place] 1.027 (1.001-1.035) 08/20/18 21:18 Urine Protein 2+ (Negative) H 08/20/18 21:18 Urine Glucose (UA) Negative (Negative) 08/20/18 21:18 Urine Ketones Negative (Negative) 08/20/18 21:18 Urine Blood Small (Negative) H 08/20/18 21:18 Urine Nitrite Negative (Negative) 08/20/18 21:18 Urine Bilirubin Negative (Negative) 08/20/18 21:18 Urine Urobilinogen <2.0 mg/dL (<2.0) 08/20/18 21:18 Ur Leukocyte Esterase Large (Negative) H 08/20/18 21:18 Urine RBC 11 /hpf (0-5) H 08/20/18 21:18 Urine WBC >182 /hpf (0-5) H 08/20/18 21:18 Urine WBC Clumps Many /hpf (None) H 08/20/18 21:18 Ur Squamous Epith Cells 3 /hpf (0-4) 08/20/18 21:18 Urine Bacteria Moderate /hpf (None) H 08/20/18 21:18 Urine Mucus Few /hpf (None) H 08/20/18 21:18 Microbiology 08/20/18 21:18 Urine,Voided Urine Culture - Preliminary Group D Enterococcus Assessment and Plan (1) UTI (urinary tract infection) Narrative/Plan: 68-year-old male who has superobesity and multiple medical troubles including history of diabetes, lung disease and stroke who is quite immobile and cared for by the family and the family home. His related that his mental status became worse and there were concerned and constantly was brought to the emergency center. Patient mental status is not known but he certainly is not functioning well at this point in time. He is reportedly with a history of multiple urinary tract infections. A bladder scan is requested and less than 200 mL of urine was found. Does not appear to have chronic urinary retention is the etiology of her current infection. However he still may have a partially neurogenic bladder that would make him at greater risk of urinary infections. Enterococcus isolated and ampicillin based antibiotic therapy has been initiated. Final culture result will determine our options as he is improving for home. . Current Visit: Yes Status: Acute Code(s): N39.0 - URINARY TRACT INFECTION, SITE NOT SPECIFIED SNOMED Code(s): 63878555 (2) Weakness Current Visit: Yes Status: Acute Code(s): R53.1 - WEAKNESS SNOMED Code(s): 95510398 (3) Altered mental status Current Visit: No Status: Acute Code(s): R41.82 - ALTERED MENTAL STATUS, UNSPECIFIED SNOMED Code(s): 699227108
[2018-08-22] MEDS ORDERED: AMPICILLIN-SULBACTAM 3 GM in SODIUM CHLORIDE 0.9% 100 ML IVPB SCH (18:00)
[2018-08-22 20:29] LABS: Glucose,Whole Blood 124 mg/dL (75-99)
[2018-08-22] MEDS: TAMSULOSIN 0.4 MG CAP.ER.24H PO SCH (20:44)
[2018-08-22] MEDS: DOCUSATE 100 MG CAP PO SCH (20:45)
[2018-08-22] MEDS: INSULIN DETEMIR (LEVEMIR) 100 UNIT/ML SYR SQ SCH (20:46)
[2018-08-23] MEDS: HYDROcodone/APAP 5-325MG 1 EACH TAB PO PRN ×4 (04:51→23:12)
[2018-08-23] MEDS: LEVOTHYROXINE 50 MCG TAB PO SCH (05:35)
[2018-08-23] MEDS: AMPICILLIN-SULBACTAM 3 GM in SODIUM CHLORIDE 0.9% 100 ML IVPB SCH ×4 (05:35→23:12)
[2018-08-23 07:09] LABS: Glucose,Whole Blood 135 mg/dL (75-99)
[2018-08-23] MEDS: INSULIN ASPART (NovoLOG) 100 UNIT/ML VIAL SQ SCH ×7 (07:24→20:29)
[2018-08-23] MEDS: CLOPIDOGREL 75 MG TAB PO SCH (07:39)
[2018-08-23] MEDS: DOCUSATE 100 MG CAP PO SCH ×2 (07:39→20:10)
[2018-08-23] MEDS: ALLOPURINOL 100 MG TAB PO SCH ×2 (07:39→20:10)
[2018-08-23] MEDS: CARVEDILOL 12.5 MG TAB PO SCH ×2 (07:39→16:16)
[2018-08-23] MEDS: FINASTERIDE 5 MG TAB PO SCH (07:40)
[2018-08-23] MEDS: carBAMazepine 200 MG TAB PO SCH ×3 (07:40→20:10)
[2018-08-23] MEDS: metFORMIN 500 MG TAB PO SCH ×2 (07:40→20:29)
[2018-08-23] MEDS: hydrALAZINE HCL 10 MG TAB PO SCH ×2 (07:40→20:09)
[2018-08-23] MEDS: PANTOPRAZOLE 40 MG TABLET PO SCH ×2 (07:40→20:10)
[2018-08-23] MEDS: BACLOFEN 10 MG TAB PO SCH ×3 (07:40→20:10)
[2018-08-23] MEDS: ARTIFICIAL TEARS-HYPROMELLOSE DROPS 15 ML BTL BOTH EYES SCH ×4 (07:41→20:11)
[2018-08-23] MEDS: HEPARIN SODIUM,PORCINE 5,000 UNIT/ML 1 ML VIAL SQ SCH ×3 (07:41→23:12)
[2018-08-23] MEDS: amLODIPine 10 MG TAB PO SCH (07:41)
[2018-08-23 08:33] LABS: Basophils % (A) 0 %; Eosinophils % (A) 1 %; HCT 32.9 % (39.0-53.0); HGB 10.8 gm/dL (13.0-17.5); Lymphocytes % (A) 16 %; MCH 27.1 pg (25.0-35.0); MCHC 32.8 g/dL (31.0-37.0); MCV 82.5 fL (80.0-100.0); Mean Platelet Volume 8.7; Monocytes # (A) 0.3 k/uL (0-1.0); Monocytes % (A) 4 %; Neutrophils # (A) 4.7 k/uL (1.3-7.7); Neutrophils % (A) 77 %; Platelet Count 147 k/uL (150-450); RBC 3.99 m/uL (4.30-5.90); RDW 15.8 % (11.5-15.5); WBC 6.1 k/uL (3.8-10.6)
--- NOTE | 2018-08-23 08:59 | US ---
EXAMINATION TYPE: US kidneys/renal and bladder DATE OF EXAM: 08/23/2018 COMPARISON: Previous study dated 05/02/2017. CLINICAL HISTORY: frequent UTI . UTI EXAM MEASUREMENTS: Right Kidney: 11.5 x 5.9 x 7.3 cm Left Kidney: 13.1 x 6.2 x 6.8 cm Right Kidney: No evidence of hydro, Cyst lower pole as seen on previous= 7.0 x 6.1 x 7.2 cm Left Kidney: No evidence of hydro, Cyst mid as seen on previous= 2.5 x 2.3 x 2.2 cm Bladder: wnl Bilateral Jets seen: Yes There is a large, lobulated cyst in the lower pole of the right kidney measuring 7 x 6 x 7.2 cm. Ther e is also a smaller 2.5 x 2.3 x 2.2 cm cyst in the mid polar region of the left kidney. This is also present previously. There is no evidence of hydronephrosis. IMPRESSION: BILATERAL RENAL CYSTS.
[2018-08-23 09:10] LABS: Anion Gap 9 mmol/L; Blood Urea Nitrogen 22 mg/dL (9-20); Calcium 9.8 mg/dL (8.4-10.2); Carbon Dioxide 30 mmol/L (22-30); Chloride 102 mmol/L (98-107); Glucose 141 mg/dL (74-99); Potassium 4.5 mmol/L (3.5-5.1); Sodium 141 mmol/L (137-145)
[2018-08-23 11:54] LABS: Glucose,Whole Blood 147 mg/dL (75-99)
--- NOTE | 2018-08-23 14:19 | P.PN ---
Subjective Patient is a 68-year-old male with a known history of CVA, gait dysfunction and frequent falls uses a wheelchair, hypertension, diabetes type 2 insulin- dependent, GERD, history of CT and history of pulmonary embolism and obstructive sleep apnea as well as hypothyroidism presents to ER with complaints of generalized weakness. Patient was in his usual state of health earlier yesterday. He went on to take a nap and after several hours of sleeping patient was difficult to arouse by family members. Patient's states she had to do sternal rub to wake him up. Patient has been feeling generally weak. Patient denied chest pain or shortness of breath. No cough or sputum production. No fever no chills. Chest x-ray showed mild pulmonary fibrotic changes. No heart failure. No significant change compared to old exam. Neck EKG showed sinus bradycardia WBC 4.3 hemoglobin 10 BUN 28 Urinalysis showed greater than 182 WBC and increased RBCs. Large leukocyte esterase. 08/22/2018 08/23/2018 Patient is still a little confused and lethargic although he is oriented to place and he knows why he is in the hospital. He still complaining of from dysuria and suprapubic tenderness. We don't know CAT scan of the head. We'll add Norvasc for him. His urine culture is growing enterococcus. We'll start him on Unasyn and asked for infectious disease consult 08/23/2018 Patient looks a little better today. This confusion. History of dysuria and suprapubic tenderness are improving. CAT scan of the head is negative for acute process. Renal ultrasound: Bilateral renal cyst. No hydronephrosis. His adequate oxygen requirements decreased today down to 2-3 L/m. Discussed with case management/adoption worker: The patient will be discharged to subacute rehab upon discharge Review of systems Constitutional: Patient denies any fever or chills . Has generalized weakness and malaise.. Abdomen: Patient denied nausea vomiting and diarrhea and abdominal pain. Cardiovascular: Patient denies any chest pain or short of breath no palp itations. No leg swelling Respiratory: patient denied any cough is from production. No shortness of breath Neurologic: Patient denied any numbness or tingling headache. Musculoskeletal: Patient denies any complaints of joint swelling or deformity. Objective - Vital Signs Vital signs: Vital Signs Temp 98.3 F 08/23/18 05:10 Pulse 65 08/23/18 05:10 Resp 20 08/23/18 13:16 BP 164/76 08/23/18 05:10 Pulse Ox 96 08/23/18 13:16 Intake & Output 08/22/18 08/23/18 08/23/18 18:59 06:59 18:59 Intake Total 100 Balance 100 Intake: Oral 100 Other: Voiding Method Diaper Diaper Incontinent Incontinent # Voids 4 3 2 - Exam PHYSICAL EXAMINATION: Patient is lying in the bed comfortably, no acute distress, awake alert and oriented.. HEENT: Normocephalic. Neck is supple. Pupils reactive. Nostrils clear. Oral cavity is moist. Ears reveal no drainage. Neck reveals no JVD, carotid bruits, or thyromegaly. CHEST EXAMINATION: Trachea is central. Symmetrical expansion. Bibasilar diminished air entry. Lung mukherjee clear to auscultation and percussion. CARDIAC: Normal S1, S2 with no gallops. No murmurs ABDOMEN: Soft. Bowel sounds normal. No organomegaly. No abdominal bruits. Extremities: reveal no edema. No clubbing or cyanosis Neurologically awake, alert, oriented x2-3. Able to move all his extremities while in bed. Skin: No rash or skin lesions. Psychiatric: Coperative. Could not be assessed Musculoskeletal: No joint swelling or deformity. Normal range of motion. - Labs CBC & Chem 7: 08/23/18 08:15 08/23/18 08:15 Labs: Abnormal Lab Results - Last 24 Hours (Table) 08/22/18 08/23/18 08/23/18 Range/Units 20:26 07:05 08:15 RBC 3.99 L (4.30-5.90) m/uL Hgb 10.8 L (13.0-17.5) gm/dL Hct 32.9 L (39.0-53.0) % RDW 15.8 H (11.5-15.5) % Plt Count 147 L (150-450) k/uL BUN (9-20) mg/dL Glucose (74-99) mg/dL POC Glucose (mg/dL) 124 H 135 H (75-99) mg/dL 08/23/18 08/23/18 Range/Units 08:15 11:52 RBC (4.30-5.90) m/uL Hgb (13.0-17.5) gm/dL Hct (39.0-53.0) % RDW (11.5-15.5) % Plt Count (150-450) k/uL BUN 22 H (9-20) mg/dL Glucose 141 H (74-99) mg/dL POC Glucose (mg/dL) 147 H (75-99) mg/dL Microbiology - Last 24 Hours (Table) 08/20/18 21:18 Urine Culture - Final Urine,Voided Enterococcus faecalis Assessment and Plan Assessment: Assessment and Plan Assessment: altered mental status possible metabolic encephalopathy, which is multifactorial. UTI, check CT of the head Acute urinary tract infection. Diabetes type 2 insulin-dependent History of CVA bilateral arm and leg weakness Hypertension GERD BPH History of PE/DVT obstructive sleep apnea on CPAP. Use oxygen at night. Diabetic peripheral neuropathy Gait dysfunction and frequent falls uses wheelchair/medical debility Chronic back pain Gout Bipolar/depression/PTSD Obesity with BMI 34.8 DVT prophylaxis Plan: Patient will be continued on IV hydration and encourage oral intake. Continue with antibiotics no cough Unasyn and follow-up urine culture report Will hold narcotic pain medications and Geodon. PTOT will be consulted. Continue with insulin dosing and follow up closely Further recommendations based on the clinical course. Prognosis is guarded with multiple medical problems and comorbid conditions.
[2018-08-23 17:03] LABS: Glucose,Whole Blood 162 mg/dL (75-99)
[2018-08-23] MEDS: TAMSULOSIN 0.4 MG CAP.ER.24H PO SCH (20:10)
[2018-08-23 20:22] LABS: Glucose,Whole Blood 201 mg/dL (75-99)
[2018-08-23] MEDS: INSULIN DETEMIR (LEVEMIR) 100 UNIT/ML SYR SQ SCH (20:29)
[2018-08-23] MEDS: SODIUM CHLORIDE 0.9% 1,000 ML IV SCH (20:31)
[2018-08-24] MEDS: AMPICILLIN-SULBACTAM 3 GM in SODIUM CHLORIDE 0.9% 100 ML IVPB SCH ×3 (05:44→17:39)
[2018-08-24] MEDS: LEVOTHYROXINE 50 MCG TAB PO SCH (05:44)
[2018-08-24 07:49] LABS: Glucose,Whole Blood 243 mg/dL (75-99)
[2018-08-24] MEDS: CARVEDILOL 12.5 MG TAB PO SCH ×2 (08:01→17:42)
[2018-08-24] MEDS: ALLOPURINOL 100 MG TAB PO SCH ×2 (08:01→21:25)
[2018-08-24] MEDS: HEPARIN SODIUM,PORCINE 5,000 UNIT/ML 1 ML VIAL SQ SCH ×2 (08:01→15:08)
[2018-08-24] MEDS: DOCUSATE 100 MG CAP PO SCH ×2 (08:01→21:26)
[2018-08-24] MEDS: amLODIPine 10 MG TAB PO SCH (08:01)
[2018-08-24] MEDS: PANTOPRAZOLE 40 MG TABLET PO SCH (08:01)
[2018-08-24] MEDS: CLOPIDOGREL 75 MG TAB PO SCH (08:01)
[2018-08-24] MEDS: carBAMazepine 200 MG TAB PO SCH ×3 (08:01→21:25)
[2018-08-24] MEDS: hydrALAZINE HCL 10 MG TAB PO SCH ×2 (08:01→21:25)
[2018-08-24] MEDS: BACLOFEN 10 MG TAB PO SCH ×3 (08:01→21:25)
[2018-08-24] MEDS: metFORMIN 500 MG TAB PO SCH ×2 (08:01→21:25)
[2018-08-24] MEDS: INSULIN ASPART (NovoLOG) 100 UNIT/ML VIAL SQ SCH ×7 (08:02→21:16)
[2018-08-24] MEDS: FINASTERIDE 5 MG TAB PO SCH (08:03)
[2018-08-24] MEDS: ARTIFICIAL TEARS-HYPROMELLOSE DROPS 15 ML BTL BOTH EYES SCH ×3 (08:06→17:39)
[2018-08-24 10:38] LABS: Anisocytosis Slight; Basophils % (A) 0 %; Eosinophils % (A) 1 %; HCT 32.5 % (39.0-53.0); HGB 10.6 gm/dL (13.0-17.5); Lymphocytes % (A) 17 %; MCH 26.7 pg (25.0-35.0); MCHC 32.5 g/dL (31.0-37.0); MCV 82.1 fL (80.0-100.0); Mean Platelet Volume 8.2; Monocytes # (A) 0.3 k/uL (0-1.0); Monocytes % (A) 5 %; Neutrophils # (A) 4.5 k/uL (1.3-7.7); Neutrophils % (A) 76 %; Platelet Count 163 k/uL (150-450); Poikilocytosis Slight; RBC 3.95 m/uL (4.30-5.90); RDW 16.4 % (11.5-15.5); WBC 5.9 k/uL (3.8-10.6)
[2018-08-24 10:45] LABS: Anion Gap 10 mmol/L; Blood Urea Nitrogen 24 mg/dL (9-20); Calcium 9.6 mg/dL (8.4-10.2); Carbon Dioxide 30 mmol/L (22-30); Chloride 99 mmol/L (98-107); Glucose 198 mg/dL (74-99); Potassium 4.6 mmol/L (3.5-5.1); Sodium 139 mmol/L (137-145)
[2018-08-24 12:10] LABS: Glucose,Whole Blood 191 mg/dL (75-99)
[2018-08-24] MEDS ORDERED: BISACODYL 10 MG SUPP RECTAL STA (14:58)
[2018-08-24 16:34] LABS: Glucose,Whole Blood 209 mg/dL (75-99)
[2018-08-24 20:41] LABS: Glucose,Whole Blood 128 mg/dL (75-99)
[2018-08-24 20:51] VITALS: RESP 18
--- NOTE | 2018-08-24 20:51 | P.PN ---
Subjective Patient is a 68-year-old male with a known history of CVA, gait dysfunction and frequent falls uses a wheelchair, hypertension, diabetes type 2 insulin- dependent, GERD, history of [place] and history of pulmonary embolism and obstructive sleep apnea as well as hypothyroidism presents to ER with complaints of generalized weakness. Patient was in his usual state of health earlier yesterday. He went on to take a nap and after several hours of sleeping patient was difficult to arouse by family members. Patient's states she had to do sternal rub to wake him up. Patient has been feeling generally weak. Patient denied chest pain or shortness of breath. No cough or sputum production. No fever no chills. Chest x-ray showed mild pulmonary fibrotic changes. No heart failure. No significant change compared to old exam. Neck EKG showed sinus bradycardia WBC 4.3 hemoglobin 10 BUN 28 Urinalysis showed greater than 182 WBC and increased RBCs. Large leukocyte esterase. 08/22/2018 08/23/2018 Patient is still a little confused and lethargic although he is oriented to place and he knows why he is in the hospital. He still complaining of from dysuria and suprapubic tenderness. We don't know CAT scan of the head. We'll add Norvasc for him. His urine culture is growing enterococcus. We'll start him on Unasyn and asked for infectious disease consult 08/23/2018 Patient looks a little better today. This confusion. History of dysuria and suprapubic tenderness are improving. CAT scan of the head is negative for acute process. Renal ultrasound: Bilateral renal cyst. No hydronephrosis. His adequate oxygen requirements decreased today down to 2-3 L/m. Discussed with case management/yard worker: The patient will be discharged to subacute rehab upon discharge 08/24/2018 pt is still improving gradually . his mental status is back to his baseline, blood pressure is better controlled. US of the kid ordered earlier : no hydronephrosis , he uses 3 L of oxygen and his saturating in 90s%. pt will need ECF for inpatient rehab upon discharge Objective - Vital Signs Vital signs: Vital Signs Temp 97.3 F L 08/24/18 13:00 Pulse 68 08/24/18 13:00 Resp 16 08/24/18 13:00 BP 159/76 08/24/18 13:00 Pulse Ox 97 08/24/18 15:31 Intake & Output 08/24/18 08/24/18 08/25/18 06:59 18:59 06:59 Intake Total 400 Balance 400 Intake: Intake, IV Titration 400 Amount Ampicillin-Sulbactam 3 gm 200 In Sodium Chloride 0.9% 100 ml @ 200 mls/hr IVPB Q6HR ALONSO Rx#:[id number] Sodium Chloride 0.9% 1, 200 000 ml @ 20 mls/hr IV . Q24H ALONSO Rx#:[id number] Other: Voiding Method Diaper Diaper Incontinent Incontinent # Voids 1 3 # Bowel Movements 1 - Exam PHYSICAL EXAMINATION: Patient is lying in the bed comfortably, no acute distress, awake alert and oriented.. HEENT: Normocephalic. Neck is supple. Pupils reactive. Nostrils clear. Oral cavity is moist. Ears reveal no drainage. Neck reveals no JVD, carotid bruits, or thyromegaly. CHEST EXAMINATION: Trachea is central. Symmetrical expansion. Bibasilar diminished air entry. Lung mukherjee clear to auscultation and percussion. CARDIAC: Normal S1, S2 with no gallops. No murmurs ABDOMEN: Soft. Bowel sounds normal. No organomegaly. No abdominal bruits. Extremities: reveal no edema. No clubbing or cyanosis Neurologically awake, alert, oriented x2-3. Able to move all his extremities while in bed. Skin: No rash or skin lesions. Psychiatric: Coperative. Could not be assessed Musculoskeletal: No joint swelling or deformity. Normal range of motion. - Labs CBC & Chem 7: 08/24/18 09:54 08/24/18 09:54 Labs: Abnormal Lab Results - Last 24 Hours (Table) 08/24/18 08/24/18 08/24/18 Range/Units 07:46 09:54 09:54 RBC 3.95 L (4.30-5.90) m/uL Hgb 10.6 L (13.0-17.5) gm/dL Hct 32.5 L (39.0-53.0) % RDW 16.4 H (11.5-15.5) % BUN 24 H (9-20) mg/dL Glucose 198 H (74-99) mg/dL POC Glucose (mg/dL) 243 H (75-99) mg/dL 08/24/18 08/24/18 08/24/18 Range/Units 12:06 16:31 20:36 RBC (4.30-5.90) m/uL Hgb (13.0-17.5) gm/dL Hct (39.0-53.0) % RDW (11.5-15.5) % BUN (9-20) mg/dL Glucose (74-99) mg/dL POC Glucose (mg/dL) 191 H 209 H 128 H (75-99) mg/dL Assessment and Plan Assessment: Assessment and Plan Assessment: altered mental status possible metabolic encephalopathy, which is multifa ctorial. UTI, check CT of the head Acute urinary tract infection. Diabetes type 2 insulin-dependent History of CVA bilateral arm and leg weakness Hypertension GERD BPH History of PE/DVT obstructive sleep apnea on CPAP. Use oxygen at night. Diabetic peripheral neuropathy Gait dysfunction and frequent falls uses wheelchair/medical debility Chronic back pain Gout Bipolar/depression/PTSD Obesity with BMI 34.8 DVT prophylaxis Plan: Patient will be continued on IV hydration and encourage oral intake. Continue with antibiotics no cough Unasyn and follow-up urine culture report Will hold narcotic pain medications and Geodon. PTOT will be consulted. Continue with insulin dosing and follow up closely Further recommendations based on the clinical course. Prognosis is guarded with multiple medical problems and comorbid conditions.
[2018-08-24] MEDS: INSULIN DETEMIR (LEVEMIR) 100 UNIT/ML SYR SQ SCH (21:26)
[2018-08-24] MEDS: TAMSULOSIN 0.4 MG CAP.ER.24H PO SCH (21:29)
--- NOTE | 2018-08-24 23:09 | P.PN ---
Subjective Progress Note Date: 08/24/18 68 -year-old male who has superobesity a history of stroke and what appears to be significant immobility is brought by his family where he is cared for in the family home. Is related that a and some caregivers to provide his care. Apparently the patient had worsening mental status and he took a nap but he was then difficult to arouse him because they were concerned and he was brought to hospital. The patient himself is a poor historian and is not able to relate significant history at this time. When asked questions he often mumbles and answer that is not understandable. However the patient does not complain of much pain on questioning except to his lower back. 08/24/2018 patient is a bit more awake and alert. His speech is more intelligible. Seems more comfortable. Objective - Vital Signs Vital signs: Vital Signs Temp 98.0 F 08/24/18 20:50 Pulse 66 08/24/18 20:50 Resp 18 08/24/18 20:50 BP 150/71 08/24/18 20:50 Pulse Ox 96 08/24/18 20:50 Intake & Output 08/24/18 08/24/18 08/25/18 06:59 18:59 06:59 Intake Total 400 120 Balance 400 120 Intake: Intake, IV Titration 400 120 Amount Ampicillin-Sulbactam 3 gm 200 In Sodium Chloride 0.9% 100 ml @ 200 mls/hr IVPB Q6HR ALONSO Rx#:[id number] Sodium Chloride 0.9% 1, 200 120 000 ml @ 20 mls/hr IV . Q24H ALONSO Rx#:[id number] Other: Voiding Method Diaper Diaper Diaper Incontinent Incontinent Incontinent # Voids 1 3 4 # Bowel Movements 1 1 - Exam 68 -year-old male with superobesity, supine with head minimally elevated is resting quietly until he is examined HEENT: Anicteric conjunctiva are pink and moist nasal mucosa grossly intact without significant lesions, there is no thrush. Neck: The neck is supple without significant lymphadenopathy or thyromegaly. Lungs: symmetrical air entry is noted expiratory wheezes are scattered no distinct bronchial sounds all dullness or egophony Heart: irregular with an audible S1 and S2 soft S4 no murmur click or rub Abdomen: the abdomen is obese it is not tender it is not rigid with the obesity no abdominal organs are palpable Extremities: the upper extremities are without acute lesions. The lower extremities show evidence of some prior trauma is a large area of ecchymosis on the medial aspect of the left thigh there is evidence of some healing eschars on both knees Neuro: patient is today awake alert interactive but still a poor historian speech is improved - Labs CBC & Chem 7: 08/24/18 09:54 08/24/18 09:54 Labs: Abnormal Lab Results - Last 24 Hours (Table) 08/24/18 08/24/18 08/24/18 Range/Units 07:46 09:54 09:54 RBC 3.95 L (4.30-5.90) m/uL Hgb 10.6 L (13.0-17.5) gm/dL Hct 32.5 L (39.0-53.0) % RDW 16.4 H (11.5-15.5) % BUN 24 H (9-20) mg/dL Glucose 198 H (74-99) mg/dL POC Glucose (mg/dL) 243 H (75-99) mg/dL 08/24/18 08/24/18 08/24/18 Range/Units 12:06 16:31 20:36 RBC (4.30-5.90) m/uL Hgb (13.0-17.5) gm/dL Hct (39.0-53.0) % RDW (11.5-15.5) % BUN (9-20) mg/dL Glucose (74-99) mg/dL POC Glucose (mg/dL) 191 H 209 H 128 H (75-99) mg/dL Laboratory Results WBC 5.9 k/uL (3.8-10.6) 08/24/18 09:54 RBC 3.95 m/uL (4.30-5.90) L 08/24/18 09:54 Hgb 10.6 gm/dL (13.0-17.5) L 08/24/18 09:54 Hct 32.5 % (39.0-53.0) L 08/24/18 09:54 MCV 82.1 fL (80.0-100.0) 08/24/18 09:54 MCH 26.7 pg (25.0-35.0) 08/24/18 09:54 MCHC 32.5 g/dL (31.0-37.0) 08/24/18 09:54 RDW 16.4 % (11.5-15.5) H 08/24/18 09:54 Plt Count 163 k/uL (150-450) 08/24/18 09:54 Neutrophils % 76 % 08/24/18 09:54 Lymphocytes % 17 % 08/24/18 09:54 Monocytes % 5 % 08/24/18 09:54 Eosinophils % 1 % 08/24/18 09:54 Basophils % 0 % 08/24/18 09:54 Neutrophils # 4.5 k/uL (1.3-7.7) 08/24/18 09:54 Lymphocytes # 1.0 k/uL (1.0-4.8) 08/24/18 09:54 Monocytes # 0.3 k/uL (0-1.0) 08/24/18 09:54 Eosinophils # 0.0 k/uL (0-0.7) 08/24/18 09:54 Basophils # 0.0 k/uL (0-0.2) 08/24/18 09:54 Poikilocytosis Slight 08/24/18 09:54 Anisocytosis Slight 08/24/18 09:54 PT 10.7 sec (9.0-12.0) 08/20/18 20:10 INR 1.0 (<1.2) 08/20/18 20:10 APTT 27.7 sec (22.0-30.0) 08/20/18 20:10 VBG pH 7.28 (7.31-7.41) L 08/21/18 03:27 VBG pCO2 64 mmHg (37-51) H 08/21/18 03:27 VBG HCO3 29 mmol/L (24-28) H 08/21/18 03:27 Sodium 139 mmol/L (137-145) 08/24/18 09:54 Potassium 4.6 mmol/L (3.5-5.1) 08/24/18 09:54 Chloride 99 mmol/L (98-107) 08/24/18 09:54 Carbon Dioxide 30 mmol/L (22-30) 08/24/18 09:54 Anion Gap 10 mmol/L 08/24/18 09:54 BUN 24 mg/dL (9-20) H 08/24/18 09:54 Creatinine 0.83 mg/dL (0.66-1.25) 08/24/18 09:54 Est GFR (CKD-EPI)AfAm >90 (>60 ml/min/1.73 sqM) 08/24/18 09:54 Est GFR (CKD-EPI)NonAf 90 (>60 ml/min/1.73 sqM) 08/24/18 09:54 Glucose 198 mg/dL (74-99) H 08/24/18 09:54 POC Glucose (mg/dL) 128 mg/dL (75-99) H 08/24/18 20:36 POC Glu Collar Setter Overlock ID Dye, Janessa 08/24/18 20:36 Plasma Lactic Acid Anthony 1.0 mmol/L (0.7-2.0) 08/20/18 20:10 Calcium 9.6 mg/dL (8.4-10.2) 08/24/18 09:54 Magnesium 2.2 mg/dL (1.6-2.3) 08/20/18 20:10 Total Bilirubin 0.4 mg/dL (0.2-1.3) 08/20/18 20:10 AST 63 U/L (17-59) H 08/20/18 20:10 ALT 37 U/L (21-72) 08/20/18 20:10 Alkaline Phosphatase 79 U/L (38-126) 08/20/18 20:10 Ammonia 17 umol/L (<30) 08/20/18 20:10 Troponin I 0.023 ng/mL (0.000-0.034) 08/20/18 20:10 Total Protein 7.5 g/dL (6.3-8.2) 08/20/18 20:10 Albumin 4.5 g/dL (3.5-5.0) 08/20/18 20:10 TSH 2.360 mIU/L (0.465-4.680) 08/20/18 20:10 Urine Color Yellow 08/20/18 21:18 Urine Appearance Turbid (Clear) 08/20/18 21:18 Urine pH 5.5 (5.0-8.0) 08/20/18 21:18 Ur Specific [place] 1.027 (1.001-1.035) 08/20/18 21:18 Urine Protein 2+ (Negative) H 08/20/18 21:18 Urine Glucose (UA) Negative (Negative) 08/20/18 21:18 Urine Ketones Negative (Negative) 08/20/18 21:18 Urine Blood Small (Negative) H 08/20/18 21:18 Urine Nitrite Negative (Negative) 08/20/18 21:18 Urine Bilirubin Negative (Negative) 08/20/18 21:18 Urine Urobilinogen <2.0 mg/dL (<2.0) 08/20/18 21:18 Ur Leukocyte Esterase Large (Negative) H 08/20/18 21:18 Urine RBC 11 /hpf (0-5) H 08/20/18 21:18 Urine WBC >182 /hpf (0-5) H 08/20/18 21:18 Urine WBC Clumps Many /hpf (None) H 08/20/18 21:18 Ur Squamous Epith Cells 3 /hpf (0-4) 08/20/18 21:18 Urine Bacteria Moderate /hpf (None) H 08/20/18 21:18 Urine Mucus Few /hpf (None) H 08/20/18 21:18 Microbiology 08/20/18 21:18 Urine,Voided Urine Culture - Final Enterococcus faecalis Assessment and Plan (1) UTI (urinary tract infection) Narrative/Plan: 68-year-old male who has superobesity and multiple medical troubles including history of diabetes, lung disease and stroke who is quite immobile and cared for by the family and the family home. His related that his mental status became worse and there were concerned and constantly was brought to the emergency center. Patient mental status is not known but he certainly is not functioning well at this point in time. He is reportedly with a history of multiple urinary tract infections. A bladder scan is requested and less than 200 mL of urine was found. Does not appear to have chronic urinary retention is the etiology of her current infection. However he still may have a partially neurogenic bladder that would make him at greater risk of urinary infections. Enterococcus isolated and ampicillin based antibiotic therapy has been initiated. Final culture result will determine our options as he is improving for home. . 08/24/2018 patient has had improvement of his status. No evidence of urinary retention or of obstructive uropathy by ultrasound. Enterococcus has been isolated and as the patient improves may be transitioned to oral Augmentin to complete 7 days of therapy for his enterococcal urinary tract infection in this compromised host. Current Visit: Yes Status: Acute Code(s): N39.0 - URINARY TRACT INFECTION, SITE NOT SPECIFIED SNOMED Code(s): 71295867 (2) Weakness Current Visit: Yes Status: Acute Code(s): R53.1 - WEAKNESS SNOMED Code(s): 27911218 (3) Altered mental status Current Visit: No Status: Acute Code(s): R41.82 - ALTERED MENTAL STATUS, UNSPECIFIED SNOMED Code(s): 716497812
[2018-08-25] MEDS: HEPARIN SODIUM,PORCINE 5,000 UNIT/ML 1 ML VIAL SQ SCH ×2 (00:03→07:42)
[2018-08-25] MEDS: ARTIFICIAL TEARS-HYPROMELLOSE DROPS 15 ML BTL BOTH EYES SCH ×3 (00:03→12:55)
[2018-08-25] MEDS: AMPICILLIN-SULBACTAM 3 GM in SODIUM CHLORIDE 0.9% 100 ML IVPB SCH ×3 (00:03→12:54)
[2018-08-25] MEDS: SODIUM CHLORIDE 0.9% 1,000 ML IV SCH (00:03)
[2018-08-25 06:08] VITALS: BP 158/68; PULSE 61; TEMP 98.3
[2018-08-25] MEDS: LEVOTHYROXINE 50 MCG TAB PO SCH (06:25)
[2018-08-25 07:19] LABS: Glucose,Whole Blood 166 mg/dL (75-99)
[2018-08-25] MEDS: DOCUSATE 100 MG CAP PO SCH (07:43)
[2018-08-25] MEDS: BACLOFEN 10 MG TAB PO SCH (07:43)
[2018-08-25] MEDS: amLODIPine 10 MG TAB PO SCH (07:43)
[2018-08-25] MEDS: FINASTERIDE 5 MG TAB PO SCH (07:43)
[2018-08-25] MEDS: hydrALAZINE HCL 10 MG TAB PO SCH (07:43)
[2018-08-25] MEDS: metFORMIN 500 MG TAB PO SCH (07:43)
[2018-08-25] MEDS: carBAMazepine 200 MG TAB PO SCH (07:43)
[2018-08-25] MEDS: ALLOPURINOL 100 MG TAB PO SCH (07:43)
[2018-08-25] MEDS: PANTOPRAZOLE 40 MG TABLET PO SCH (07:43)
[2018-08-25] MEDS: CLOPIDOGREL 75 MG TAB PO SCH (07:43)
[2018-08-25] MEDS: CARVEDILOL 12.5 MG TAB PO SCH (07:43)
[2018-08-25] MEDS: INSULIN ASPART (NovoLOG) 100 UNIT/ML VIAL SQ SCH ×4 (07:44→12:55)
[2018-08-25 11:57] LABS: Glucose,Whole Blood 116 mg/dL (75-99)
--- NOTE | 2018-08-25 14:30 | P.DS ---
Providers Date of admission: 08/20/18 22:23 Attending physician: Kassie Das Consults: 08/22/18 12:59 Consult Physician Urgent Consulting Provider: Robi Greene Reason/Comments: uti Do you want consulting provider notified?: Yes Primary care physician: [facility] Hospital Course: Diagnoses: altered mental status possible metabolic encephalopathy, which is multifactorial. UTI, improved Acute urinary tract infection. Has been treated and infectious disease was following the patient. Bilateral renal cyst Diabetes type 2 insulin-dependent History of CVA bilateral arm and leg weakness Hypertension GERD BPH History of PE/DVT obstructive sleep apnea on CPAP. Use oxygen at night. Diabetic peripheral neuropathy Gait dysfunction and frequent falls uses wheelchair/medical debility Chronic back pain Gout Bipolar/depression/PTSD Obesity with BMI 34.8 Hospital course: Patient is a 68-year-old male with a known history of CVA, gait dysfunction and frequent falls uses a wheelchair, hypertension, diabetes type 2 insulin- dependent, GERD, history of [place] and history of pulmonary embolism and obstructive sleep apnea as well as hypothyroidism presents to ER with complaints of generalized weakness. Patient found to be metabolic encephalopathy secondary to urinary tract infection. Patient was treated with gentle hydration and IV antibiotics. Patient showed interval improvement and his symptoms resolved. His mental status is back to baseline and is fully awake oriented. Infectious disease been following the patient and they recommended the antibiotics inpatient and upon discharge. Infectious diseases cleared the patient for discharge. Ultrasound of the kidney was done and shows bilateral kidney stones. Patient since he can be discharged home as well. Problems and management plan was discussed with the patient and he verbalized understanding and acceptance Patient was found stable and can be discharged to his ECF and guarded prognosis however he needs follow-up as an outpatient. Patient was instructed to follow up with his PCP in one week and he agrees. He agrees with the appointments made for him and he says he will follow-up. Patient was instructed to follow up with his PCP in one week. Also patient was instructed to follow up with urologist in 1-2 weeks for his recurrent UTI and bilateral kidney cysts. The staff contacted Dr. Mccoy office with 70 don't to contact the patient for an appointment, also I spoke with his upon patient request, Ms.Julia Díaz at [phone] and updated her with this information and the need for urology follow-up and agrees with it. Risks including but not limited to cancer explained to the patient and and they understood. Gen: patient is a AAOx3, no distress CVS: S1-S2, RRR, no murmur Lungs: B/L CTA, no wheezing Abdomen: soft, no distention, no tenderness, positive bowel sounds Extremity: no leg edema or induration Time spent more than 35 minutes Patient Condition at Discharge: Fair Plan - Discharge Summary New Discharge Prescriptions: New hydrALAZINE HCL [Apresoline] 10 mg PO BID tab Amoxicillin/Potassium Clav [Augmentin 875-125 Tablet] 1 tab PO Q12HR 7 Days #14 tab Heparin Sodium,Porcine [Heparin Sodium] 5,000 unit SQ Q8HR vial HYDROcodone/APAP 5-325MG [[place] 5-325] 1 each PO Q12HR PRN 3 Days #6 tab PRN Reason: Pain Continue Levothyroxine Sodium [Synthroid] 50 mcg PO DAILY carBAMazepine [TEGretol] 400 mg PO TID Finasteride [Proscar] 5 mg PO DAILY Ziprasidone [Geodon] 20 mg PO TID Sertraline [Zoloft] 200 mg PO DAILY Allopurinol [Zyloprim] 100 mg PO BID Insulin Aspart [NovoLOG] 40 units SQ AC-TID Ergocalciferol [Vitamin D2 (DRISDOL)] 100,000 unit PO MO Tamsulosin [Flomax] 0.8 mg PO HS Pravastatin Sodium [Pravachol] 80 mg PO HS Enochs-3 Fatty Acids/Fish Oil [Fish Oil 1,000 mg Softgel] 2 cap PO BID Clopidogrel Bisulfate [Plavix] 75 mg PO DAILY #20 tab Multivitamins, Thera [Multivitamin (formulary)] 1 tab PO DAILY Gemfibrozil [Lopid] 600 mg PO BID Ranitidine HCl [Zantac] 300 mg PO HS Baclofen [Lioresal] 10 mg PO DAILY PRN PRN Reason: Muscle Spasm Baclofen [Lioresal] 20 mg PO HS Carboxymethylcellulose Sodium [Restore Plus] 1 drop BOTH EYES QID Dextrose Chew [Glucose Chew Tab] 4 gm PO TID PRN PRN Reason: LOW BLOOD SUGAR metFORMIN HCL 1,000 mg PO BID Albuterol Sulfate [Proair Hfa] 2 puff INHALATION RT-Q4H PRN PRN Reason: Shortness Of Breath amLODIPine [Norvasc] 10 mg PO DAILY Carvedilol [Coreg] 12.5 mg PO BID Diclofenac Sodium Gel [Voltaren Gel] 1 applic TOPICAL BID PRN PRN Reason: Pain Fluticasone Nasal [place] [Flonase Nasal [place]] 1 spray EA NOSTRIL BID INSULIN ASPART (NovoLOG) [NovoLOG (formulary)] See Protocol SQ AC-TID Insulin Glargine,Hum.rec.anlog [Lantus Solostar] 120 unit SQ HS Miconazole Nitrate [Lotrimin AF Powder] 1 applic TOPICAL BID Pantoprazole Sodium [Protonix] 40 mg PO BID Sodium Chloride 5% Ophth Oint [[place] 128] 1 applic BOTH EYES HS Ziprasidone HCl [Geodon] 20 mg PO DAILY PRN PRN Reason: EPISODE Baclofen [Lioresal] 10 mg PO BID #6 tab Discontinued Loratadine [Claritin] 10 mg PO DAILY Pregabalin [Lyrica] 100 mg PO TID clonazePAM [KlonoPIN] 0.5 mg PO TID PRN PRN Reason: Anxiety Discharge Medication List Allopurinol [Zyloprim] 100 mg PO BID 12/02/14 [History] Ergocalciferol [Vitamin D2 (DRISDOL)] 100,000 unit PO MO 12/02/14 [History] Finasteride [Proscar] 5 mg PO DAILY 12/02/14 [History] Insulin Aspart [NovoLOG] 40 units SQ AC-TID 12/02/14 [History] Levothyroxine Sodium [Synthroid] 50 mcg PO DAILY 12/02/14 [History] [place]chs-3 Fatty Acids/Fish Oil [Fish Oil 1,000 mg Softgel] 2 cap PO BID 12/02/14 [History] Pravastatin Sodium [Pravachol] 80 mg PO HS 12/02/14 [History] Sertraline [Zoloft] 200 mg PO DAILY 12/02/14 [History] Tamsulosin [Flomax] 0.8 mg PO HS 12/02/14 [History] Ziprasidone [Geodon] 20 mg PO TID 12/02/14 [History] carBAMazepine [TEGretol] 400 mg PO TID 12/02/14 [History] Clopidogrel Bisulfate [Plavix] 75 mg PO DAILY #20 tab 10/01/15 [Rx] Gemfibrozil [Lopid] 600 mg PO BID 12/21/16 [History] Multivitamins, Thera [Multivitamin (formulary)] 1 tab PO DAILY 12/21/16 [History] Ranitidine HCl [Zantac] 300 mg PO HS 07/01/17 [History] Baclofen [Lioresal] 10 mg PO DAILY PRN 03/06/18 [History] Baclofen [Lioresal] 20 mg PO HS 03/06/18 [History] Carboxymethylcellulose Sodium [Restore Plus] 1 drop BOTH EYES QID 03/06/18 [History] Dextrose Chew [Glucose Chew Tab] 4 gm PO TID PRN 03/06/18 [History] metFORMIN HCL 1,000 mg PO BID 03/06/18 [History] Albuterol Sulfate [Proair Hfa] 2 puff INHALATION RT-Q4H PRN 08/20/18 [History] Carvedilol [Coreg] 12.5 mg PO BID 08/20/18 [History] Diclofenac Sodium Gel [Voltaren Gel] 1 applic TOPICAL BID PRN 08/20/18 [History] Fluticasone Nasal [place] [Flonase Nasal [place]] 1 spray EA NOSTRIL BID 08/20/18 [History] INSULIN ASPART (NovoLOG) [NovoLOG (formulary)] See Protocol SQ AC-TID 08/20/18 [History] Insulin Glargine,Hum.rec.anlog [Lantus Solostar] 120 unit SQ HS 08/20/18 [History] Miconazole Nitrate [Lotrimin AF Powder] 1 applic TOPICAL BID 08/20/18 [History] Pantoprazole Sodium [Protonix] 40 mg PO BID 08/20/18 [History] Sodium Chloride 5% Ophth Oint [[place] 128] 1 applic BOTH EYES HS 08/20/18 [ History] Ziprasidone HCl [Geodon] 20 mg PO DAILY PRN 08/20/18 [History] amLODIPine [Norvasc] 10 mg PO DAILY 08/20/18 [History] Amoxicillin/Potassium Clav [Augmentin 875-125 Tablet] 1 tab PO Q12HR 7 Days #14 tab 08/25/18 [Rx] Baclofen [Lioresal] 10 mg PO BID #6 tab 08/25/18 [Rx] HYDROcodone/APAP 5-325MG [[place] 5-325] 1 each PO Q12HR PRN 3 Days #6 tab 08/25/18 [Rx] Heparin Sodium,Porcine [Heparin Sodium] 5,000 unit SQ Q8HR vial 08/25/18 [Rx] hydrALAZINE HCL [Apresoline] 10 mg PO BID tab 08/25/18 [Rx] Follow up Appointment(s)/Referral(s): Bear Townsend MD [STAFF PHYSICIAN] - 1 Week (office will call to set up appointment with PT) [facility]Clinic [Primary Care Provider] - 1-2 days Patient Instructions/Handouts: Urinary Tract Infection in Men (DC) Activity/Diet/Wound Care/Special Instructions: cardiac diet activity is limited till you see your doctor Discharge Disposition: TRANSFER TO SNF/ECF
== END 2018-08-25 15:29 | DRG 689 ==
LOC: EC 18:56 → 4MS4W 22:23
PROVIDERS: ADMIT Hospitalist; ATTEND Hospitalist
DX: N39.0 Urinary tract infection, site not specified (principal); G93.41 Metabolic encephalopathy; I69.354 Hemiplegia and hemiparesis following cerebral infarction affecting left non-dominant side; I69.351 Hemiplegia and hemiparesis following cerebral infarction affecting right dominant side; B95.2 Enterococcus as the cause of diseases classified elsewhere; E03.9 Hypothyroidism, unspecified; E11.42 Type 2 diabetes mellitus with diabetic polyneuropathy; E66.01 Morbid (severe) obesity due to excess calories; Z68.34 Body mass index [BMI] 34.0-34.9, adult; E86.0 Dehydration; F43.10 Post-traumatic stress disorder, unspecified; G47.33 Obstructive sleep apnea (adult) (pediatric); G89.29 Other chronic pain; I10 Essential (primary) hypertension; I25.2 Old myocardial infarction; K21.9 Gastro-esophageal reflux disease without esophagitis; M10.9 Gout, unspecified; N20.0 Calculus of kidney; N28.1 Cyst of kidney, acquired; N40.0 Benign prostatic hyperplasia without lower urinary tract symptoms; R29.6 Repeated falls; Z79.02 Long term (current) use of antithrombotics/antiplatelets; Z79.4 Long term (current) use of insulin; Z79.890 Hormone replacement therapy; Z79.899 Other long term (current) drug therapy; Z86.010 Personal history of colon polyps; Z86.19 Personal history of other infectious and parasitic diseases; Z86.711 Personal history of pulmonary embolism; Z86.718 Personal history of other venous thrombosis and embolism; Z87.440 Personal history of urinary (tract) infections; Z99.89 Dependence on other enabling machines and devices; Z99.81 Dependence on supplemental oxygen; Z89.021 Acquired absence of right finger(s); M54.9 Dorsalgia, unspecified; Z88.6 Allergy status to analgesic agent; Z88.8 Allergy status to other drugs, medicaments and biological substances
CPT/HCPCS: 36415; 70450; 71046; 76770; 80048; 80053; 81001; 82140; 82803; 83605; 83735; 84443; 84484; 85025; 85610; 85730; 87077; 87086; 87186; 93005; 94640; 94760; 96361; 96365; 96366; 99285

== ENCOUNTER 2018-09-18 20:13 | Inpatient (IN) | payer OTHER ==
[2018-09-18] MEDS ORDERED: SODIUM CHLORIDE 0.9% 1,000 ML IV STA (20:18)
[2018-09-18 20:57] LABS: ALT 42 U/L (21-72); AST 55 U/L (17-59); Albumin 4.4 g/dL (3.5-5.0); Alkaline Phosphatase 79 U/L (38-126); Anion Gap 11 mmol/L; Blood Urea Nitrogen 17 mg/dL (9-20); Calcium 9.4 mg/dL (8.4-10.2); Carbon Dioxide 25 mmol/L (22-30); Chloride 109 mmol/L (98-107); Glucose 100 mg/dL (74-99); Phosphorus 3.1 mg/dL (2.5-4.5); Potassium 4.1 mmol/L (3.5-5.1); Sodium 145 mmol/L (137-145); Total Bilirubin 0.3 mg/dL (0.2-1.3); Total Protein 7.3 g/dL (6.3-8.2)
[2018-09-18 20:59] LABS: Partial Thromboplastin Time 27.8 sec (22.0-30.0); Prothrombin Time 10.7 sec (9.0-12.0)
[2018-09-18 21:01] LABS: Anisocytosis Slight; Basophils % (A) 0 %; Eosinophils # (A) 0.1 k/uL (0-0.7); Eosinophils % (A) 2 %; HCT 31.7 % (39.0-53.0); HGB 10.7 gm/dL (13.0-17.5); Lymphocytes # (A) 1.5 k/uL (1.0-4.8); Lymphocytes % (A) 26 %; MCH 27.6 pg (25.0-35.0); MCHC 33.6 g/dL (31.0-37.0); MCV 82.2 fL (80.0-100.0); Mean Platelet Volume 7.9; Monocytes # (A) 0.3 k/uL (0-1.0); Monocytes % (A) 6 %; Neutrophils # (A) 3.6 k/uL (1.3-7.7); Neutrophils % (A) 63 %; Platelet Count 136 k/uL (150-450); Poikilocytosis Slight; RBC 3.86 m/uL (4.30-5.90); RDW 18.4 % (11.5-15.5); WBC 5.6 k/uL (3.8-10.6)
--- NOTE | 2018-09-18 21:08 | ED ---
Male Urogenital HPI - General Chief complaint: Urogenital Stated complaint: Weakness Time Seen by Provider: 09/18/18 20:17 Source: EMS, RN notes reviewed, old records reviewed Mode of arrival: EMS Limitations: physical limitation - History of Present Illness Initial comments: This is a 68-year-old male to ER for evaluation. Patient resents today for ev aluation regards to weakness and fever. Patient's poor strain history obtained from prior chart and EMS. Concern is for patient to UTI recurrent urinary tract infection dehydration or other causes of weakness. Patient denies acute complaints MD Complaint: dysuria, other (None) -: unknown Radiation: none Severity: mild Consistency: constant Improves with: none Worsens with: none Reports: denies other symptoms - Related Data Home Medications Medication Instructions Recorded Confirmed Allopurinol [Zyloprim] 100 mg PO BID 12/02/14 09/18/18 Ergocalciferol [Vitamin D2 100,000 unit PO MO 12/02/14 09/18/18 (DRISDOL)] Finasteride [Proscar] 5 mg PO DAILY 12/02/14 09/18/18 Insulin Aspart [NovoLOG] 40 units SQ AC-TID 12/02/14 09/18/18 Levothyroxine Sodium [Synthroid] 50 mcg PO DAILY 12/02/14 09/18/18 [place]-3 Fatty Acids/Fish Oil [Fish 2 cap PO BID 12/02/14 09/18/18 Oil 1,000 mg Softgel] Pravastatin Sodium [Pravachol] 80 mg PO HS 12/02/14 09/18/18 Sertraline [Zoloft] 200 mg PO DAILY 12/02/14 09/18/18 Tamsulosin [Flomax] 0.8 mg PO HS 12/02/14 09/18/18 Ziprasidone [Geodon] 20 mg PO TID 12/02/14 09/18/18 carBAMazepine [TEGretol] 400 mg PO TID 12/02/14 09/18/18 Gemfibrozil [Lopid] 600 mg PO BID 12/21/16 09/18/18 Multivitamins, Thera [Multivitamin 1 tab PO DAILY 12/21/16 09/18/18 (formulary)] Ranitidine HCl [Zantac] 300 mg PO HS 07/01/17 09/18/18 Baclofen [Lioresal] 10 mg PO DAILY PRN 03/06/18 09/18/18 Baclofen [Lioresal] 20 mg PO HS 03/06/18 09/18/18 Carboxymethylcellulose Sodium 1 drop BOTH EYES QID 03/06/18 09/18/18 [Restore Plus] Dextrose Chew [Glucose Chew Tab] 4 gm PO TID PRN 03/06/18 09/18/18 metFORMIN HCL 1,000 mg PO BID 03/06/18 09/18/18 Albuterol Sulfate [Proair Hfa] 2 puff INHALATION RT-Q4H PRN 08/20/18 09/18/18 Carvedilol [Coreg] 12.5 mg PO BID 08/20/18 09/18/18 Diclofenac Sodium Gel [Voltaren 1 applic TOPICAL BID PRN 08/20/18 09/18/18 Gel] Fluticasone Nasal [place] [Flonase 1 spray EA NOSTRIL BID 08/20/18 09/18/18 Nasal [place]] INSULIN ASPART (NovoLOG) [NovoLOG See Protocol SQ AC-TID 08/20/18 09/18/18 (formulary)] Insulin Glargine,Hum.rec.anlog 120 unit SQ HS 08/20/18 09/18/18 [Lantus Solostar] Miconazole Nitrate [Lotrimin AF 1 applic TOPICAL BID 08/20/18 09/18/18 Powder] Pantoprazole Sodium [Protonix] 40 mg PO BID 08/20/18 09/18/18 Sodium Chloride 5% Ophth Oint 1 applic BOTH EYES HS 08/20/18 09/18/18 [Celeste 128] Ziprasidone HCl [Geodon] 20 mg PO DAILY PRN 08/20/18 09/18/18 amLODIPine [Norvasc] 10 mg PO DAILY 08/20/18 09/18/18 Amoxicillin 500 mg PO TID 09/18/18 09/18/18 Pregabalin [Lyrica] 100 mg PO TID PRN 09/18/18 09/18/18 clonazePAM [KlonoPIN] 0.5 mg PO TID PRN 09/18/18 09/18/18 Previous Rx's Medication Instructions Recorded Clopidogrel Bisulfate [Plavix] 75 mg PO DAILY #20 tab 10/01/15 Baclofen [Lioresal] 10 mg PO BID #6 tab 08/25/18 Allergies Allergy/AdvReac Type Severity Reaction Status Date / Time aspirin Allergy ABDOMINAL Verified 09/18/18 21:00 DISCOMFORT etodolac [From [place]] Allergy Unknown Verified 09/18/18 21:00 oxybutynin Allergy Unknown Verified 09/18/18 21:00 Review of Systems ROS Statement: Those systems with pertinent positive or pertinent negative responses have been documented in the HPI. ROS Other: All systems not noted in ROS Statement are negative. Past Medical History Past Medical History: CVA/TIA, Diabetes Mellitus, Deep Vein Thrombosis (DVT), GERD/Reflux, Hypertension, Myocardial Infarction ([place]), Prostate Disorder, Pulmonary Embolus (PE), Sleep Apnea/CPAP/BIPAP, Thyroid Disorder Additional Past Medical History / Comment(s): Morbid obesity, obstructive sleep apnea uses CPAP-uses O2 at 5 L during night with cpap,SOB,history of peripheral neuropathy severe associated related to diabetes mellitus, gait dysfunction and frequent falls-uses w/c-able to stand to transfer, chronic back pain, gout, BPH, TIA/CVA-loyda arm and leg weakness, previous history of C. diff colitis back in 2010,hypothyroidism,colon polyps Last Myocardial Infarction Date:: 2010 History of Any Multi-Drug Resistant Organisms: None Reported Date of last positivie culture/infection: None MDRO Source:: None Past Surgical History: Hernia Repair Additional Past Surgical History / Comment(s): hiatal hernia repair x 2, umbilical hernia repair,2nd digit rt hand amputated Past Anesthesia/Blood Transfusion Reactions: No Reported Reaction Past Psychological History: Bipolar, Depression, PTSD Smoking Status: Never smoker Past Alcohol Use History: None Reported Past Drug Use History: None Reported - Past Family History Father Family Medical History: Cancer Additional Family Medical History / Comment(s): lung Mother Family Medical History: Cancer Additional Family Medical History / Comment(s): bladder General Exam Limitations: physical limitation General appearance: alert, in no apparent distress Head exam: Present: atraumatic, normocephalic, normal inspection Eye exam: Present: normal appearance, PERRL, EOMI. Absent: scleral icterus, conjunctival injection, periorbital swelling ENT exam: Present: normal exam, mucous membranes moist Neck exam: Present: normal inspection. Absent: tenderness, meningismus, lymphadenopathy Respiratory exam: Present: normal lung sounds bilaterally. Absent: respiratory distress, wheezes, rales, rhonchi, stridor Cardiovascular Exam: Present: regular rate, normal rhythm, normal heart sounds. Absent: systolic murmur, diastolic murmur, rubs, gallop, clicks GI/Abdominal exam: Present: soft, normal bowel sounds. Absent: distended, tenderness, guarding, rebound, rigid Extremities exam: Present: normal inspection, full ROM, normal capillary refill. Absent: tenderness, pedal edema, joint swelling, calf tenderness Back exam: Present: normal inspection Neurological exam: Present: alert, oriented X3, CN II-XII intact Psychiatric exam: Present: normal affect, normal mood Skin exam: Present: warm, dry, intact, normal color. Absent: rash Course Vital Signs 09/18/18 09/18/18 20:16 23:00 Temperature 97.6 F Pulse Rate 57 L 58 L Respiratory 18 Rate Blood Pressure 128/74 145/72 O2 Sat by Pulse 99 97 Oximetry - Reevaluation(s) Reevaluation #1: Medical records reviewed Patient showing no clinical improvement despite hydration, started on antibiotics Medical Decision Making - Medical Decision Making 68 male the ER for evaluation of weakness. Patient presented for possible weakness and urinary tract infection. Noted a fever. Patient be admitted for hydration, pain control and antibiotics - Lab Data Result diagrams: 09/18/18 20:21 09/18/18 20:21 Lab Results 09/18/18 09/18/18 09/18/18 Range/Units 20:21 20:21 20:21 WBC 5.6 (3.8-10.6) k/uL RBC 3.86 L (4.30-5.90) m/uL Hgb 10.7 L (13.0-17.5) gm/dL Hct 31.7 L (39.0-53.0) % MCV 82.2 (80.0-100.0) fL MCH 27.6 (25.0-35.0) pg MCHC 33.6 (31.0-37.0) g/dL RDW 18.4 H (11.5-15.5) % Plt Count 136 L (150-450) k/uL Neutrophils % 63 % Lymphocytes % 26 % Monocytes % 6 % Eosinophils % 2 % Basophils % 0 % Neutrophils # 3.6 (1.3-7.7) k/uL Lymphocytes # 1.5 (1.0-4.8) k/uL Monocytes # 0.3 (0-1.0) k/uL Eosinophils # 0.1 (0-0.7) k/uL Basophils # 0.0 (0-0.2) k/uL Poikilocytosis Slight Anisocytosis Slight PT (9.0-12.0) sec INR (<1.2) APTT (22.0-30.0) sec Sodium 145 (137-145) mmol/L Potassium 4.1 (3.5-5.1) mmol/L Chloride 109 H (98-107) mmol/L Carbon Dioxide 25 (22-30) mmol/L Anion Gap 11 mmol/L BUN 17 (9-20) mg/dL Creatinine 0.80 (0.66-1.25) mg/dL Est GFR (CKD-EPI)AfAm >90 (>60 ml/min/1.73 sqM) Est GFR (CKD-EPI)NonAf >90 (>60 ml/min/1.73 sqM) Glucose 100 H (74-99) mg/dL Plasma Lactic Acid Anthony 1.1 (0.7-2.0) mmol/L Calcium 9.4 (8.4-10.2) mg/dL Phosphorus 3.1 (2.5-4.5) mg/dL Magnesium 2.0 (1.6-2.3) mg/dL Total Bilirubin 0.3 (0.2-1.3) mg/dL AST 55 (17-59) U/L ALT 42 (21-72) U/L Alkaline Phosphatase 79 (38-126) U/L Troponin I (0.000-0.034) ng/mL Total Protein 7.3 (6.3-8.2) g/dL Albumin 4.4 (3.5-5.0) g/dL TSH 5.310 H (0.465-4.680) mIU/L Free T4 (0.78-2.19) ng/dL Urine Color Urine Appearance (Clear) Urine pH (5.0-8.0) Ur Specific [place] (1.001-1.035) Urine Protein (Negative) Urine Glucose (UA) (Negative) Urine Ketones (Negative) Urine Blood (Negative) Urine Nitrite (Negative) Urine Bilirubin (Negative) Urine Urobilinogen (<2.0) mg/dL Ur Leukocyte Esterase (Negative) Urine RBC (0-5) /hpf Urine WBC (0-5) /hpf Urine WBC Clumps (None) /hpf Urine Mucus (None) /hpf 09/18/18 09/18/18 09/18/18 Range/Units 20:21 20:21 20:21 WBC (3.8-10.6) k/uL RBC (4.30-5.90) m/uL Hgb (13.0-17.5) gm/dL Hct (39.0-53.0) % MCV (80.0-100.0) fL MCH (25.0-35.0) pg MCHC (31.0-37.0) g/dL RDW (11.5-15.5) % Plt Count (150-450) k/uL Neutrophils % % Lymphocytes % % Monocytes % % Eosinophils % % Basophils % % Neutrophils # (1.3-7.7) k/uL Lymphocytes # (1.0-4.8) k/uL Monocytes # (0-1.0) k/uL Eosinophils # (0-0.7) k/uL Basophils # (0-0.2) k/uL Poikilocytosis Anisocytosis PT 10.7 (9.0-12.0) sec INR 1.0 (<1.2) APTT 27.8 (22.0-30.0) sec Sodium (137-145) mmol/L Potassium (3.5-5.1) mmol/L Chloride (98-107) mmol/L Carbon Dioxide (22-30) mmol/L Anion Gap mmol/L BUN (9-20) mg/dL Creatinine (0.66-1.25) mg/dL Est GFR (CKD-EPI)AfAm (>60 ml/min/1.73 sqM) Est GFR (CKD-EPI)NonAf (>60 ml/min/1.73 sqM) Glucose (74-99) mg/dL Plasma Lactic Acid [place] (0.7-2.0) mmol/L Calcium (8.4-10.2) mg/dL Phosphorus (2.5-4.5) mg/dL Magnesium (1.6-2.3) mg/dL Total Bilirubin (0.2-1.3) mg/dL AST (17-59) U/L ALT (21-72) U/L Alkaline Phosphatase (38-126) U/L Troponin I (0.000-0.034) ng/mL Total Protein (6.3-8.2) g/dL Albumin (3.5-5.0) g/dL TSH (0.465-4.680) mIU/L Free T4 0.77 L (0.78-2.19) ng/dL Urine Color Light Yellow Urine Appearance Cloudy (Clear) Urine pH 5.5 (5.0-8.0) Ur Specific [place] 1.009 (1.001-1.035) Urine Protein 1+ H (Negative) Urine Glucose (UA) Negative (Negative) Urine Ketones Negative (Negative) Urine Blood Trace H (Negative) Urine Nitrite Negative (Negative) Urine Bilirubin Negative (Negative) Urine Urobilinogen <2.0 (<2.0) mg/dL Ur Leukocyte Esterase Large H (Negative) Urine RBC 4 (0-5) /hpf Urine WBC 149 H (0-5) /hpf Urine WBC Clumps Many H (None) /hpf Urine Mucus Rare H (None) /hpf 09/18/18 Range/Units 20:29 WBC (3.8-10.6) k/uL RBC (4.30-5.90) m/uL Hgb (13.0-17.5) gm/dL Hct (39.0-53.0) % MCV (80.0-100.0) fL MCH (25.0-35.0) pg MCHC (31.0-37.0) g/dL RDW (11.5-15.5) % Plt Count (150-450) k/uL Neutrophils % % Lymphocytes % % Monocytes % % Eosinophils % % Basophils % % Neutrophils # (1.3-7.7) k/uL Lymphocytes # (1.0-4.8) k/uL Monocytes # (0-1.0) k/uL Eosinophils # (0-0.7) k/uL Basophils # (0-0.2) k/uL Poikilocytosis Anisocytosis PT (9.0-12.0) sec INR (<1.2) APTT (22.0-30.0) sec Sodium (137-145) mmol/L Potassium (3.5-5.1) mmol/L Chloride (98-107) mmol/L Carbon Dioxide (22-30) mmol/L Anion Gap mmol/L BUN (9-20) mg/dL Creatinine (0.66-1.25) mg/dL Est GFR (CKD-EPI)AfAm (>60 ml/min/1.73 sqM) Est GFR (CKD-EPI)NonAf (>60 ml/min/1.73 sqM) Glucose (74-99) mg/dL Plasma Lactic Acid [place] (0.7-2.0) mmol/L Calcium (8.4-10.2) mg/dL Phosphorus (2.5-4.5) mg/dL Magnesium (1.6-2.3) mg/dL Total Bilirubin (0.2-1.3) mg/dL AST (17-59) U/L ALT (21-72) U/L Alkaline Phosphatase (38-126) U/L Troponin I 0.016 (0.000-0.034) ng/mL Total Protein (6.3-8.2) g/dL Albumin (3.5-5.0) g/dL TSH (0.465-4.680) mIU/L Free T4 (0.78-2.19) ng/dL Urine Color Urine Appearance (Clear) Urine pH (5.0-8.0) Ur Specific [place] (1.001-1.035) Urine Protein (Negative) Urine Glucose (UA) (Negative) Urine Ketones (Negative) Urine Blood (Negative) Urine Nitrite (Negative) Urine Bilirubin (Negative) Urine Urobilinogen (<2.0) mg/dL Ur Leukocyte Esterase (Negative) Urine RBC (0-5) /hpf Urine WBC (0-5) /hpf Urine WBC Clumps (None) /hpf Urine Mucus (None) /hpf - EKG Data -: EKG Interpreted by Me (EKS shows sinus bradycardia, rate 55 pr 198 qrs 108 qrc 440) - Radiology Data Radiology results: report reviewed (Chest x-rays negative for acute disease), image reviewed Disposition Clinical Impression: UTI (urinary tract infection) Disposition[facility] Condition: Fair Is patient prescribed a controlled substance at d/c from ED?: No
[2018-09-18 21:13] LABS: Appearance,Urine Cloudy (Clear); Bilirubin,Urine Negative (Negative); Blood,Urine Trace (Negative); Color,Urine Light Yellow; Glucose,Urine (UA) Negative (Negative); Ketones,Urine Negative (Negative); Leukocyte Esterase,Urine Large (Negative); Mucus,Urine Rare /hpf; Nitrite,Urine Negative (Negative); PH, Urine 5.5 (5.0-8.0); Protein,Urine 1+ (Negative); RBC,Urine 4 /hpf (0-5); Specific Gravity,Urine 1.009 (1.001-1.035); Urobilinogen,Urine <2.0 mg/dL (<2.0); WBC,Urine 149 /hpf (0-5)
[2018-09-18] MEDS ORDERED: SODIUM CHLORIDE 0.9% 1,000 ML IV ONE (21:27)
--- NOTE | 2018-09-18 21:33 | XR ---
EXAMINATION TYPE: XR chest 2V DATE OF EXAM: 09/18/2018 COMPARISON: August 20, 2018 HISTORY: Weakness TECHNIQUE: Frontal and lateral views of the chest are obtained. FINDINGS: There is no heart failure nor confluent pneumonic infiltrate. Heart size is normal. There are chest leads. Bony thorax is intact. IMPRESSION: No active cardiopulmonary disease. Normal heart. No change.
[2018-09-18 22:31] LABS: Glucose,Whole Blood 82 mg/dL (75-99)
[2018-09-19] MEDS: ACETAMINOPHEN TAB 325 MG TAB PO PRN ×2 (05:30→17:41)
[2018-09-19] MEDS: carBAMazepine 200 MG TAB PO SCH ×4 (05:31→20:07)
[2018-09-19] MEDS: CARVEDILOL 12.5 MG TAB PO SCH ×2 (05:32→16:16)
[2018-09-19] MEDS ORDERED: LEVOTHYROXINE 50 MCG TAB PO SCH (06:30)
[2018-09-19 07:41] LABS: Glucose,Whole Blood 114 mg/dL (75-99)
[2018-09-19] MEDS ORDERED: ALBUTEROL NEBULIZED 2.5 MG/3 ML INHALATION PRN (11:00)
[2018-09-19] MEDS ORDERED: DICLOFENAC SODIUM GEL 100 GM TUBE TOPICAL PRN (11:00)
[2018-09-19] MEDS: clonazePAM 0.5 MG TAB PO PRN (12:31)
[2018-09-19] MEDS: PREGABALIN 100 MG CAP PO PRN (12:31)
[2018-09-19 12:43] LABS: Glucose,Whole Blood 145 mg/dL (75-99)
--- NOTE | 2018-09-19 12:47 | XR ---
EXAMINATION TYPE: XR hand complete RT , 3 VIEWS DATE OF EXAM ORDERED: 09/19/2018 HISTORY: right hand pain . COMPARISON: None. FINDINGS: There has been an amputation of the right index finger at the level of the midportion of t he proximal phalanx. No fracture, dislocation or other acute osseous lesion is seen. IMPRESSION: 1. NO ACUTE OSSEOUS LESION. 2. STATUS POST AMPUTATION, RIGHT INDEX FINGER
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
[2018-09-19] MEDS: PANTOPRAZOLE 40 MG TABLET PO SCH (16:11)
[2018-09-19] MEDS: ZIPRASIDONE 20 MG CAP PO SCH ×2 (16:11→20:14)
[2018-09-19] MEDS: HEPARIN SODIUM,PORCINE 5,000 UNIT/ML 1 ML VIAL SQ SCH ×2 (16:12→21:42)
[2018-09-19 17:17] LABS: Glucose,Whole Blood 178 mg/dL (75-99)
[2018-09-19] MEDS: metFORMIN 500 MG TAB PO SCH (17:41)
[2018-09-19] MEDS: FAMOTIDINE 20 MG TAB PO SCH (20:07)
[2018-09-19] MEDS: TAMSULOSIN 0.4 MG CAP.ER.24H PO SCH (20:07)
[2018-09-19] MEDS: BACLOFEN 10 MG TAB PO SCH (20:07)
[2018-09-19] MEDS: ALLOPURINOL 100 MG TAB PO SCH (20:07)
[2018-09-19] MEDS: PRAVASTATIN SODIUM 80 MG TAB PO SCH (20:08)
[2018-09-19] MEDS: FLUTICASONE 50MCG/SPRAY NASAL 16GM EA NOSTRIL SCH (20:12)
[2018-09-19] MEDS: NYSTATIN 100,000 UNIT/GM POWD 15 GM TOPICAL SCH (20:13)
[2018-09-19 20:49] LABS: Glucose,Whole Blood 199 mg/dL (75-99)
[2018-09-19] MEDS: INSULIN DETEMIR (LEVEMIR) 100 UNIT/ML SYR SQ SCH (21:41)
[2018-09-20] MEDS: LEVOTHYROXINE 75 MCG TAB PO SCH (06:06)
[2018-09-20] MEDS: amLODIPine 10 MG TAB PO SCH (06:11)
[2018-09-20] MEDS: CARVEDILOL 12.5 MG TAB PO SCH ×2 (06:11→16:28)
[2018-09-20 07:16] LABS: Glucose,Whole Blood 192 mg/dL (75-99)
[2018-09-20] MEDS: SERTRALINE 100 MG TAB PO SCH (09:06)
[2018-09-20] MEDS: CLOPIDOGREL 75 MG TAB PO SCH (09:06)
[2018-09-20] MEDS: FENOFIBRATE 160 MG TAB PO SCH (09:07)
[2018-09-20] MEDS: BACLOFEN 10 MG TAB PO SCH ×2 (09:07→20:35)
[2018-09-20] MEDS: PREGABALIN 100 MG CAP PO PRN (09:07)
[2018-09-20] MEDS: clonazePAM 0.5 MG TAB PO PRN (09:07)
[2018-09-20] MEDS: carBAMazepine 200 MG TAB PO SCH ×3 (09:07→20:35)
[2018-09-20] MEDS: metFORMIN 500 MG TAB PO SCH ×2 (09:08→16:32)
[2018-09-20] MEDS: ALLOPURINOL 100 MG TAB PO SCH ×2 (09:08→20:36)
[2018-09-20] MEDS: PANTOPRAZOLE 40 MG TABLET PO SCH ×2 (09:08→16:32)
[2018-09-20] MEDS: FINASTERIDE 5 MG TAB PO SCH (09:08)
[2018-09-20] MEDS: HEPARIN SODIUM,PORCINE 5,000 UNIT/ML 1 ML VIAL SQ SCH ×3 (09:09→22:44)
[2018-09-20] MEDS: FLUTICASONE 50MCG/SPRAY NASAL 16GM EA NOSTRIL SCH ×2 (09:09→20:47)
[2018-09-20] MEDS: ZIPRASIDONE 20 MG CAP PO SCH ×3 (09:15→22:43)
[2018-09-20] MEDS: NYSTATIN 100,000 UNIT/GM POWD 15 GM TOPICAL SCH ×2 (09:15→20:48)
[2018-09-20] MEDS: ACETAMINOPHEN TAB 325 MG TAB PO PRN (09:20)
[2018-09-20 12:02] LABS: Glucose,Whole Blood 239 mg/dL (75-99)
--- NOTE | 2018-09-20 12:48 | P.PN ---
Subjective Patient came in with generalized weakness is being treated for urinary tract infection urine cultures did not show significant abnormality to normal alec less than 100,000 patient will be empirically discharged on Ceftin for 2 more days tomorrow to [facility] per the medical facility completing 5 day of therapy for UTI. There is no conclusive evidence patient has UTI patient does have symptoms of dysuria. Constitutional: Denied any fatigue denied any fever. Cardio vascular: denied any chest pain, palpitations Gastrointestinal denied any nausea vomiting Pulmonary: Denied any shortness of breath cough Neurologic denied any new focal deficits All inpatient medications were reviewed and appropriate changes in these medications as dictated in the interval history and assessment and plan. Objective - Vital Signs Vital signs: Vital Signs Temp 98.1 F 09/20/18 05:30 Pulse 73 09/20/18 08:00 Resp 18 09/20/18 05:30 BP 175/88 09/20/18 08:00 Pulse Ox 97 09/20/18 05:30 Intake & Output 09/19/18 09/20/18 09/20/18 18:59 06:59 18:59 Intake Total 600 Output Total 73 Balance 600 -73 Intake: Oral 600 Output: Post Void Residual 73 Other: Voiding Method Bedpan Bedpan Incontinent # Voids 6 24 3 # Bowel Movements 1 2 - Exam PHYSICAL EXAMINATION: GENERAL: The patient is alert and oriented x3, not in any acute distress. Well developed, well nourished. HEENT: Pupils are round and equally reacting to light. EOMI. No scleral icterus. No conjunctival pallor. Normocephalic, atraumatic. No pharyngeal erythema. No thyromegaly. CARDIOVASCULAR: S1 and S2 present. No murmurs, rubs, or gallops. PULMONARY: Chest is clear to auscultation, no wheezing or crackles. ABDOMEN: Soft, nontender, nondistended, normoactive bowel sounds. No palpable organomegaly. MUSCULOSKELETAL: No joint swelling or deformity. EXTREMITIES: No cyanosis, clubbing, or pedal edema. NEUROLOGICAL: Gross neurological examination did not reveal any new focal deficits. Patient has significant bilateral lower limb muscle atrophy SKIN: No rashes. - Labs CBC & Chem 7: 09/18/18 20:21 09/18/18 20:21 Labs: Abnormal Lab Results - Last 24 Hours (Table) 09/18/18 09/19/18 09/19/18 Range/Units 20:21 17:06 20:46 POC Glucose (mg/dL) 178 H 199 H (75-99) mg/dL Free T4 0.77 L (0.78-2.19) ng/dL 09/20/18 09/20/18 Range/Units 07:08 11:53 POC Glucose (mg/dL) 192 H 239 H (75-99) mg/dL Free T4 (0.78-2.19) ng/dL Microbiology - Last 24 Hours (Table) 09/18/18 20:21 Urine Culture - Final Urine,Clean Catch Assessment and Plan Plan: -Generalized weakness most probably due to polypharmacy and discontinue insulin the medications except for his psychiatric medications. Although patient appeared to have urinary tract infection with symptoms of dysuria patient will continue him on Rocephin patient does have hypothyroidism as well patient will be started on low-dose of levothyroxine. -Cerebrovascular accident in the past -Type 2 diabetes mellitus -History of DVT in the past presently not on any anti-correlation although patient will need DVT prophylaxis -Hypertension -Coronary disease next and abdomen benign prostatic hypertrophic -Sleep apnea on CPAP at home. For above-mentioned chronic medical problems patient will be resumed on appropriate home medications
[2018-09-20] MEDS: INSULIN ASPART (NovoLOG) 100 UNIT/ML VIAL SQ SCH ×3 (13:00→20:40)
[2018-09-20] MEDS: LISINOPRIL 10 MG TAB PO SCH (13:05)
[2018-09-20 17:09] LABS: Glucose,Whole Blood 195 mg/dL (75-99)
[2018-09-20 20:26] LABS: Glucose,Whole Blood 206 mg/dL (75-99)
[2018-09-20] MEDS: FAMOTIDINE 20 MG TAB PO SCH (20:35)
[2018-09-20] MEDS: TAMSULOSIN 0.4 MG CAP.ER.24H PO SCH (20:36)
[2018-09-20] MEDS: PRAVASTATIN SODIUM 80 MG TAB PO SCH (20:36)
[2018-09-20] MEDS: INSULIN DETEMIR (LEVEMIR) 100 UNIT/ML SYR SQ SCH (20:45)
[2018-09-21 05:38] VITALS: BP 138/74; PULSE 60; RESP 20; TEMP 98.2
[2018-09-21] MEDS: LEVOTHYROXINE 75 MCG TAB PO SCH (05:40)
[2018-09-21 07:19] LABS: Glucose,Whole Blood 174 mg/dL (75-99)
[2018-09-21] MEDS: CARVEDILOL 12.5 MG TAB PO SCH (07:26)
[2018-09-21] MEDS: carBAMazepine 200 MG TAB PO SCH (07:26)
[2018-09-21] MEDS: FINASTERIDE 5 MG TAB PO SCH (07:26)
[2018-09-21] MEDS: metFORMIN 500 MG TAB PO SCH (07:26)
[2018-09-21] MEDS: PANTOPRAZOLE 40 MG TABLET PO SCH (07:26)
[2018-09-21] MEDS: FENOFIBRATE 160 MG TAB PO SCH (07:26)
[2018-09-21] MEDS: CLOPIDOGREL 75 MG TAB PO SCH (07:26)
[2018-09-21] MEDS: LISINOPRIL 10 MG TAB PO SCH (07:27)
[2018-09-21] MEDS: HEPARIN SODIUM,PORCINE 5,000 UNIT/ML 1 ML VIAL SQ SCH (07:27)
[2018-09-21] MEDS: ALLOPURINOL 100 MG TAB PO SCH (07:27)
[2018-09-21] MEDS: BACLOFEN 10 MG TAB PO SCH (07:27)
[2018-09-21] MEDS: SERTRALINE 100 MG TAB PO SCH (07:27)
[2018-09-21] MEDS: amLODIPine 10 MG TAB PO SCH (07:27)
[2018-09-21] MEDS: clonazePAM 0.5 MG TAB PO PRN (07:29)
[2018-09-21] MEDS: PREGABALIN 100 MG CAP PO PRN (07:29)
[2018-09-21] MEDS: INSULIN ASPART (NovoLOG) 100 UNIT/ML VIAL SQ SCH ×4 (07:29→12:29)
[2018-09-21] MEDS: ZIPRASIDONE 20 MG CAP PO SCH (07:35)
[2018-09-21] MEDS: FLUTICASONE 50MCG/SPRAY NASAL 16GM EA NOSTRIL SCH (07:35)
[2018-09-21] MEDS: NYSTATIN 100,000 UNIT/GM POWD 15 GM TOPICAL SCH (07:35)
[2018-09-21 12:30] LABS: Glucose,Whole Blood 105 mg/dL (75-99)
--- NOTE | 2018-09-21 13:13 | P.DS ---
Providers Date of admission: 09/20/18 15:52 Attending physician: Kassie Das Primary care physician: [facility] Hospital Course: Patient came in with generalized weakness is being treated for urinary tract infection urine cultures did not show significant abnormality to normal alec less than 100,000 patient will be empirically discharged on Ceftin for 2 more days tomorrow to [facility] per the medical facility completing 5 day of therapy for UTI. There is no conclusive evidence patient has UTI patient does have symptoms of dysuria. 09/21/2018 Patient is clinically doing well will be discharged couple days of Ceftin. PHYSICAL EXAMINATION: GENERAL: The patient is alert and oriented x3, not in any acute distress. Well developed, well nourished. HEENT: Pupils are round and equally reacting to light. EOMI. No scleral icterus. No conjunctival pallor. Normocephalic, atraumatic. No pharyngeal erythema. No thyromegaly. CARDIOVASCULAR: S1 and S2 present. No murmurs, rubs, or gallops. PULMONARY: Chest is clear to auscultation, no wheezing or crackles. ABDOMEN: Soft, nontender, nondistended, normoactive bowel sounds. No palpable organomegaly. MUSCULOSKELETAL: No joint swelling or deformity. EXTREMITIES: No cyanosis, clubbing, or pedal edema. NEUROLOGICAL: Gross neurological examination did not reveal any new focal deficits. Patient has significant bilateral lower limb muscle atrophy SKIN: No rashes. Assessment and Plan Plan: -Generalized weakness most probably due to polypharmacy , improved now . Although patient appeared to have urinary tract infection with symptoms of dysuria patient will continue him on Rocephin -Hypothyroidism with elevated TSH and low T4 increase levothyroxine -Cerebrovascular accident in the past -Type 2 diabetes mellitus -History of DVT in the past presently not on any anti-coagulation although patient will need DVT prophylaxis -Hypertension -Coronary disease benign prostatic hypertrophy -Sleep apnea on CPAP at home. Patient Condition at Discharge: Fair Plan - Discharge Summary New Discharge Prescriptions: New Lisinopril [Zestril] 10 mg PO DAILY #30 tab Cefuroxime Axetil [Ceftin] 500 mg PO BID 2 Days #4 tab Continue Levothyroxine Sodium [Synthroid] 50 mcg PO DAILY carBAMazepine [TEGretol] 400 mg PO TID Finasteride [Proscar] 5 mg PO DAILY Ziprasidone [Geodon] 20 mg PO TID Sertraline [Zoloft] 200 mg PO DAILY Allopurinol [Zyloprim] 100 mg PO BID Insulin Aspart [NovoLOG] 40 units SQ AC-TID Ergocalciferol [Vitamin D2 (DRISDOL)] 100,000 unit PO MO Tamsulosin [Flomax] 0.8 mg PO HS Pravastatin Sodium [Pravachol] 80 mg PO HS [place]-3 Fatty Acids/Fish Oil [Fish Oil 1,000 mg Softgel] 2 cap PO BID Clopidogrel Bisulfate [Plavix] 75 mg PO DAILY #20 tab Multivitamins, Thera [Multivitamin (formulary)] 1 tab PO DAILY Gemfibrozil [Lopid] 600 mg PO BID Ranitidine HCl [Zantac] 300 mg PO HS Carboxymethylcellulose Sodium [Restore Plus] 1 drop BOTH EYES QID Dextrose Chew [Glucose Chew Tab] 4 gm PO TID PRN PRN Reason: LOW BLOOD SUGAR metFORMIN HCL 1,000 mg PO BID Albuterol Sulfate [Proair Hfa] 2 puff INHALATION RT-Q4H PRN PRN Reason: Shortness Of Breath amLODIPine [Norvasc] 10 mg PO DAILY Carvedilol [Coreg] 12.5 mg PO BID Diclofenac Sodium Gel [Voltaren Gel] 1 applic TOPICAL BID PRN PRN Reason: Pain Fluticasone Nasal [place] [Flonase Nasal [place]] 1 spray EA NOSTRIL BID INSULIN ASPART (NovoLOG) [NovoLOG (formulary)] See Protocol SQ AC-TID Insulin Glargine,Hum.rec.anlog [Lantus Solostar] 120 unit SQ HS Miconazole Nitrate [Lotrimin AF Powder] 1 applic TOPICAL BID Sodium Chloride 5% Ophth Oint [Celeste 128] 1 applic BOTH EYES HS Ziprasidone HCl [Geodon] 20 mg PO DAILY PRN PRN Reason: EPISODE clonazePAM [KlonoPIN] 0.5 mg PO TID PRN PRN Reason: ANXIETY Pregabalin [Lyrica] 100 mg PO TID PRN PRN Reason: NERVE PAIN Changed Baclofen [Lioresal] 10 mg PO BID PRN #6 tab PRN Reason: Spasms Discontinued Baclofen [Lioresal] 10 mg PO DAILY PRN PRN Reason: Muscle Spasm Baclofen [Lioresal] 20 mg PO HS Pantoprazole Sodium [Protonix] 40 mg PO BID Amoxicillin 500 mg PO TID Discharge Medication List Allopurinol [Zyloprim] 100 mg PO BID 12/02/14 [History] Ergocalciferol [Vitamin D2 (DRISDOL)] 100,000 unit PO MO 12/02/14 [History] Finasteride [Proscar] 5 mg PO DAILY 12/02/14 [History] Insulin Aspart [NovoLOG] 40 units SQ AC-TID 12/02/14 [History] Levothyroxine Sodium [Synthroid] 50 mcg PO DAILY 12/02/14 [History] [place]-3 Fatty Acids/Fish Oil [Fish Oil 1,000 mg Softgel] 2 cap PO BID 12/02/14 [History] Pravastatin Sodium [Pravachol] 80 mg PO HS 12/02/14 [History] Sertraline [Zoloft] 200 mg PO DAILY 12/02/14 [History] Tamsulosin [Flomax] 0.8 mg PO HS 12/02/14 [History] Ziprasidone [Geodon] 20 mg PO TID 12/02/14 [History] carBAMazepine [TEGretol] 400 mg PO TID 12/02/14 [History] Clopidogrel Bisulfate [Plavix] 75 mg PO DAILY #20 tab 10/01/15 [Rx] Gemfibrozil [Lopid] 600 mg PO BID 12/21/16 [History] Multivitamins, Thera [Multivitamin (formulary)] 1 tab PO DAILY 12/21/16 [History] Ranitidine HCl [Zantac] 300 mg PO HS 07/01/17 [History] Carboxymethylcellulose Sodium [Restore Plus] 1 drop BOTH EYES QID 03/06/18 [History] Dextrose Chew [Glucose Chew Tab] 4 gm PO TID PRN 03/06/18 [History] metFORMIN HCL 1,000 mg PO BID 03/06/18 [History] Albuterol Sulfate [Proair Hfa] 2 puff INHALATION RT-Q4H PRN 08/20/18 [History] Carvedilol [Coreg] 12.5 mg PO BID 08/20/18 [History] Diclofenac Sodium Gel [Voltaren Gel] 1 applic TOPICAL BID PRN 08/20/18 [History] Fluticasone Nasal [place] [Flonase Nasal [place]] 1 spray EA NOSTRIL BID 08/20/18 [History] INSULIN ASPART (NovoLOG) [NovoLOG (formulary)] See Protocol SQ AC-TID 08/20/18 [History] Insulin Glargine,Hum.rec.anlog [Lantus Solostar] 120 unit SQ HS 08/20/18 [History] Miconazole Nitrate [Lotrimin AF Powder] 1 applic TOPICAL BID 08/20/18 [History] Sodium Chloride 5% Ophth Oint [Celeste 128] 1 applic BOTH EYES HS 08/20/18 [History] Ziprasidone HCl [Geodon] 20 mg PO DAILY PRN 08/20/18 [History] amLODIPine [Norvasc] 10 mg PO DAILY 08/20/18 [History] Pregabalin [Lyrica] 100 mg PO TID PRN 09/18/18 [History] clonazePAM [KlonoPIN] 0.5 mg PO TID PRN 09/18/18 [History] Baclofen [Lioresal] 10 mg PO BID PRN #6 tab 09/21/18 [Rx] Cefuroxime Axetil [Ceftin] 500 mg PO BID 2 Days #4 tab 09/21/18 [Rx] Lisinopril [Zestril] 10 mg PO DAILY #30 tab 09/21/18 [Rx] Follow up Appointment(s)/Referral(s): [facility],Clinic [Primary Care Provider] - 3 Days (office to call you with appt. time and date) Patient Instructions/Handouts: Urinary Tract Infection in Men (DC) Discharge Disposition: HOME WITH HOME HEALTH SERVICES
== END 2018-09-21 13:39 | disposition home or self-care (01) | DRG 948 ==
LOC: SUPCPDRO 20:13 → EC 20:13 → 4MS4W 21:28 → OBSVTOIN 09-20 15:52
PROVIDERS: ADMIT Hospitalist; ATTEND Hospitalist
DX: R53.1 Weakness (principal); I69.354 Hemiplegia and hemiparesis following cerebral infarction affecting left non-dominant side; I69.351 Hemiplegia and hemiparesis following cerebral infarction affecting right dominant side; N39.0 Urinary tract infection, site not specified; T50.995A Adverse effect of other drugs, medicaments and biological substances, initial encounter; E03.9 Hypothyroidism, unspecified; E11.42 Type 2 diabetes mellitus with diabetic polyneuropathy; E86.0 Dehydration; F32.9 Major depressive disorder, single episode, unspecified; F43.10 Post-traumatic stress disorder, unspecified; G47.33 Obstructive sleep apnea (adult) (pediatric); I10 Essential (primary) hypertension; I25.2 Old myocardial infarction; K21.9 Gastro-esophageal reflux disease without esophagitis; N40.0 Benign prostatic hyperplasia without lower urinary tract symptoms; Z79.02 Long term (current) use of antithrombotics/antiplatelets; Z79.4 Long term (current) use of insulin; Z79.890 Hormone replacement therapy; Z79.899 Other long term (current) drug therapy; Z86.010 Personal history of colon polyps; Z86.19 Personal history of other infectious and parasitic diseases; Z86.711 Personal history of pulmonary embolism; Z86.718 Personal history of other venous thrombosis and embolism; Z87.440 Personal history of urinary (tract) infections; Z88.6 Allergy status to analgesic agent; Z88.8 Allergy status to other drugs, medicaments and biological substances; Z99.89 Dependence on other enabling machines and devices; M10.9 Gout, unspecified; Z79.51 Long term (current) use of inhaled steroids
CPT/HCPCS: 36415; 71046; 80053; 81001; 83605; 83735; 84100; 84439; 84443; 84484; 85025; 85610; 85730; 87086; 93005; 96361; 96365; 99285

== ENCOUNTER 2018-10-21 18:45 | Inpatient (IN) | payer OTHER ==
[2018-10-21] MEDS ORDERED: SODIUM CHLORIDE 0.9% 500 ML 500 ML IV STA (19:21)
--- NOTE | 2018-10-21 19:36 | ED ---
General Adult HPI - General Source: patient Mode of arrival: wheelchair Limitations: no limitations <Zoë Elizabeth - Last Filed: 10/21/18 23:10> <Cole Springer - Last Filed: 10/23/18 10:19> - General Chief complaint: Recheck/Abnormal Lab/Rx Stated complaint: UTI Time Seen by Provider: 10/21/18 18:54 - History of Present Illness Initial comments: 68-year-old male patient presents to the emergency department today for evaluation of weakness and urinary tract infection symptoms. Patient states the last day he has been experiencing urinary urgency, urinary frequency, and dysuria. Patient states he has also felt some generalized weakness and fatigue. Patient states he has had multiple urinary tract infections in the past and this feels similar. Patient states he was seen and evaluated at the [facility] was found to have a temperature elevated at 99.5F today sent here for further evaluation. Patient denies any recent rash, shortness breath, chest pain, abdominal pain, nausea, vomiting, diarrhea, constipation, back pain, numbness, tingling, dizziness, weakness, headache, visual changes, or any other complaints. (Zoë Elizabeth) - Related Data Home Medications Medication Instructions Recorded Confirmed Allopurinol [Zyloprim] 100 mg PO BID 12/02/14 10/21/18 Ergocalciferol [Vitamin D2 100,000 unit PO MO 12/02/14 10/21/18 (DRISDOL)] Finasteride [Proscar] 5 mg PO DAILY 12/02/14 10/21/18 Insulin Aspart [NovoLOG] 40 units SQ AC-TID 12/02/14 10/21/18 Levothyroxine Sodium [Synthroid] 50 mcg PO DAILY 12/02/14 10/21/18 [place]-3 Fatty Acids/Fish Oil [Fish 2 cap PO BID 12/02/14 10/21/18 Oil 1,000 mg Softgel] Pravastatin Sodium [Pravachol] 80 mg PO HS 12/02/14 10/21/18 Sertraline [Zoloft] 200 mg PO DAILY 12/02/14 10/21/18 Tamsulosin [Flomax] 0.8 mg PO HS 12/02/14 10/21/18 Ziprasidone [Geodon] 20 mg PO TID 12/02/14 10/21/18 carBAMazepine [TEGretol] 400 mg PO TID 12/02/14 10/21/18 Gemfibrozil [Lopid] 600 mg PO BID 12/21/16 10/21/18 Multivitamins, Thera [Multivitamin 1 tab PO DAILY 12/21/16 10/21/18 (formulary)] Ranitidine HCl [Zantac] 300 mg PO HS 07/01/17 10/21/18 Carboxymethylcellulose Sodium 1 drop BOTH EYES QID 03/06/18 10/21/18 [Restore Plus] Dextrose Chew [Glucose Chew Tab] 4 gm PO TID PRN 03/06/18 10/21/18 metFORMIN HCL 1,000 mg PO BID 03/06/18 10/21/18 Albuterol Sulfate [Proair Hfa] 2 puff INHALATION RT-Q4H PRN 08/20/18 10/21/18 Carvedilol [Coreg] 12.5 mg PO BID 08/20/18 10/21/18 Diclofenac Sodium Gel [Voltaren 1 applic TOPICAL BID PRN 08/20/18 10/21/18 Gel] Fluticasone Nasal [place] [Flonase 1 spray EA NOSTRIL BID 08/20/18 10/21/18 Nasal [place]] INSULIN ASPART (NovoLOG) [NovoLOG See Protocol SQ AC-TID 08/20/18 10/21/18 (formulary)] Insulin Glargine,Hum.rec.anlog 120 unit SQ HS 08/20/18 10/21/18 [Lantus Solostar] Miconazole Nitrate [Lotrimin AF 1 applic TOPICAL BID 08/20/18 10/21/18 Powder] Sodium Chloride 5% Ophth Oint 1 applic BOTH EYES HS 08/20/18 10/21/18 [Celeste 128] amLODIPine [Norvasc] 10 mg PO DAILY 08/20/18 10/21/18 Pregabalin [Lyrica] 100 mg PO TID PRN 09/18/18 10/21/18 clonazePAM [KlonoPIN] 0.5 mg PO TID PRN 09/18/18 10/21/18 Baclofen [Lioresal] 10 mg PO BID@0800,1300 10/21/18 10/21/18 Baclofen [Lioresal] 20 mg PO HS 10/21/18 10/21/18 Loratadine [Claritin] 10 mg PO DAILY 10/21/18 10/21/18 Pantoprazole Sodium [Protonix] 40 mg PO BID 10/21/18 10/21/18 Previous Rx's Medication Instructions Recorded Clopidogrel Bisulfate [Plavix] 75 mg PO DAILY #20 tab 10/01/15 Allergies Allergy/AdvReac Type Severity Reaction Status Date / Time aspirin Allergy ABDOMINAL Verified 10/21/18 19:11 DISCOMFORT etodolac [From Lodine] Allergy Unknown Verified 10/21/18 19:11 oxybutynin Allergy Unknown Verified 10/21/18 19:11 Review of Systems ROS Other: All systems not noted in ROS Statement are negative. <Zoë Elizabeth - Last Filed: 10/21/18 23:10> ROS Other: All systems not noted in ROS Statement are negative. <Cole Springer - Last Filed: 10/23/18 10:19> ROS Statement: Those systems with pertinent positive or pertinent negative responses have been documented in the HPI. Past Medical History Past Medical History: CVA/TIA, Diabetes Mellitus, Deep Vein Thrombosis (DVT), GERD/Reflux, Hypertension, Myocardial Infarction (DE), Prostate Disorder, Pu lmonary Embolus (PE), Sleep Apnea/CPAP/BIPAP, Thyroid Disorder Additional Past Medical History / Comment(s): Morbid obesity, obstructive sleep apnea uses CPAP-uses O2 at 5 L during night with cpap,SOB,history of peripheral neuropathy severe associated related to diabetes mellitus, gait dysfunction and frequent falls-uses w/c-able to stand to transfer, chronic back pain, gout, BPH, TIA/CVA-loyda arm and leg weakness, previous history of C. diff colitis back in 2010,hypothyroidism,colon polyps Last Myocardial Infarction Date:: 2010 History of Any Multi-Drug Resistant Organisms: None Reported Date of last positivie culture/infection: None MDRO Source:: None Past Surgical History: Hernia Repair Additional Past Surgical History / Comment(s): hiatal hernia repair x 2, umbilical hernia repair,2nd digit rt hand amputated Past Anesthesia/Blood Transfusion Reactions: No Reported Reaction Past Psychological History: Bipolar, Depression, PTSD Smoking Status: Never smoker Past Alcohol Use History: None Reported Past Drug Use History: None Reported - Past Family History Father Family Medical History: Cancer Additional Family Medical History / Comment(s): lung Mother Family Medical History: Cancer Additional Family Medical History / Comment(s): bladder <Zoë Elizabeth M - Last Filed: 10/21/18 23:10> General Exam Limitations: no limitations General appearance: alert, in no apparent distress, other (Social well- developed, well-nourished elderly male patient in no acute distress. Vital signs upon presentation are temperature 98.5F, pulse 89, respirations 18, blood pressure 139/65, pulse ox 95% on room air.) Eye exam: Present: normal appearance, PERRL, EOMI. Absent: scleral icterus, conjunctival injection, periorbital swelling ENT exam: Present: normal exam, normal oropharynx, mucous membranes moist Respiratory exam: Present: normal lung sounds bilaterally. Absent: respiratory distress, wheezes, rales, rhonchi, stridor Cardiovascular Exam: Present: regular rate, normal rhythm, normal heart sounds. Absent: systolic murmur, diastolic murmur, rubs, gallop, clicks GI/Abdominal exam: Present: soft, normal bowel sounds. Absent: distended, tenderness, guarding, rebound, rigid Neurological exam: Present: alert, oriented X3, CN II-XII intact Psychiatric exam: Present: normal affect, normal mood Skin exam: Present: warm, dry, intact, normal color. Absent: rash <Zoë Elizabeth M - Last Filed: 10/21/18 23:10> Course Vital Signs 10/21/18 10/21/18 10/21/18 18:46 19:30 20:00 Temperature 98.5 F Pulse Rate 89 74 73 Respiratory 18 20 22 Rate Blood Pressure 139/65 130/62 155/55 O2 Sat by Pulse 95 96 98 Oximetry 10/21/18 10/21/18 10/21/18 21:00 21:58 22:00 Temperature 98.2 F Pulse Rate 67 65 65 Respiratory 21 20 19 Rate Blood Pressure 152/55 145/58 145/58 O2 Sat by Pulse 96 98 97 Oximetry 10/21/18 10/21/18 22:30 23:00 Temperature Pulse Rate 63 67 Respiratory 18 21 Rate Blood Pressure 143/56 152/58 O2 Sat by Pulse 97 96 Oximetry EKG Findings - EKG Comments: EKG Findings:: EKG obtained at 2002 shows normal sinus rhythm with an incomplete right bundle branch block. Ventricular rate is 73, CO interval 204, QRS dura tion 108, QT 402, QTc 442. No evidence of ST elevation or depression. <Zoë Elizabeth - Last Filed: 10/21/18 23:10> Medical Decision Making - Lab Data Result diagrams: 10/21/18 19:00 10/21/18 19:00 <Zoë Elizabeth - Last Filed: 10/21/18 23:10> - Lab Data Result diagrams: 10/23/18 07:29 10/23/18 07:29 <Cole Springer - Last Filed: 10/23/18 10:19> - Medical Decision Making 68-year-old male patient presents to the emergency department today for evaluation of generalized weakness, urinary urgency, frequency, and dysuria. Patient states the symptoms of a present for the last one to 2 days. Zickel examination did reveal some suprapubic tenderness. No CVA tenderness. He is afebrile. Labs reviewed and revealed normal white blood cell, and there is presence of UTI with urinalysis. I did discuss findings results with the family. They are uncomfortable letting patient be discharged as he has had frequent urinary tract infections in the past and he generally requires hospital admission. We'll start IV Rocephin and admitted to the hospital for further evaluation. Urine has been sent for culture. (Zoë Elizabeth) I saw this patient in conjunction with the physician respiratory therapist assistant. I performed independent history and physical exam. Agree with case management. (Cole Springer) - Lab Data Lab Results 10/21/18 10/21/18 10/21/18 Range/Units 19:00 19:00 19:00 WBC 7.4 (3.8-10.6) k/uL RBC 4.00 L (4.30-5.90) m/uL Hgb 10.9 L (13.0-17.5) gm/dL Hct 33.3 L (39.0-53.0) % MCV 83.2 (80.0-100.0) fL MCH 27.1 (25.0-35.0) pg MCHC 32.6 (31.0-37.0) g/dL RDW 16.6 H (11.5-15.5) % Plt Count 138 L (150-450) k/uL Neutrophils % 76 % Lymphocytes % 17 % Monocytes % 5 % Eosinophils % 1 % Basophils % 0 % Neutrophils # 5.6 (1.3-7.7) k/uL Lymphocytes # 1.2 (1.0-4.8) k/uL Monocytes # 0.3 (0-1.0) k/uL Eosinophils # 0.1 (0-0.7) k/uL Basophils # 0.0 (0-0.2) k/uL Hypochromasia Slight Poikilocytosis Slight Anisocytosis Slight PT (9.0-12.0) sec INR (<1.2) APTT (22.0-30.0) sec Sodium 141 (137-145) mmol/L Potassium 5.2 H (3.5-5.1) mmol/L Chloride 105 (98-107) mmol/L Carbon Dioxide 23 (22-30) mmol/L Anion Gap 13 mmol/L BUN 35 H (9-20) mg/dL Creatinine 1.14 (0.66-1.25) mg/dL Est GFR (CKD-EPI)AfAm 76 (>60 ml/min/1.73 sqM) Est GFR (CKD-EPI)NonAf 66 (>60 ml/min/1.73 sqM) Glucose 237 H (74-99) mg/dL Plasma Lactic Acid Anthony 1.6 (0.7-2.0) mmol/L Calcium 9.5 (8.4-10.2) mg/dL Total Bilirubin 0.2 (0.2-1.3) mg/dL AST 34 (17-59) U/L ALT 25 (21-72) U/L Alkaline Phosphatase 100 (38-126) U/L Total Protein 7.3 (6.3-8.2) g/dL Albumin 4.5 (3.5-5.0) g/dL Urine Color Urine Appearance (Clear) Urine pH (5.0-8.0) Ur Specific [place] (1.001-1.035) Urine Protein (Negative) Urine Glucose (UA) (Negative) Urine Ketones (Negative) Urine Blood (Negative) Urine Nitrite (Negative) Urine Bilirubin (Negative) Urine Urobilinogen (<2.0) mg/dL Ur Leukocyte Esterase (Negative) Urine RBC (0-5) /hpf Urine WBC (0-5) /hpf Urine Mucus (None) /hpf 10/21/18 10/21/18 Range/Units 19:00 20:03 WBC (3.8-10.6) k/uL RBC (4.30-5.90) m/uL Hgb (13.0-17.5) gm/dL Hct (39.0-53.0) % MCV (80.0-100.0) fL MCH (25.0-35.0) pg MCHC (31.0-37.0) g/dL RDW (11.5-15.5) % Plt Count (150-450) k/uL Neutrophils % % Lymphocytes % % Monocytes % % Eosinophils % % Basophils % % Neutrophils # (1.3-7.7) k/uL Lymphocytes # (1.0-4.8) k/uL Monocytes # (0-1.0) k/uL Eosinophils # (0-0.7) k/uL Basophils # (0-0.2) k/uL Hypochromasia Poikilocytosis Anisocytosis PT 10.7 (9.0-12.0) sec INR 1.0 (<1.2) APTT 26.0 (22.0-30.0) sec Sodium (137-145) mmol/L Potassium (3.5-5.1) mmol/L Chloride (98-107) mmol/L Carbon Dioxide (22-30) mmol/L Anion Gap mmol/L BUN (9-20) mg/dL Creatinine (0.66-1.25) mg/dL Est GFR (CKD-EPI)AfAm (>60 ml/min/1.73 sqM) Est GFR (CKD-EPI)NonAf (>60 ml/min/1.73 sqM) Glucose (74-99) mg/dL Plasma Lactic Acid [place] (0.7-2.0) mmol/L Calcium (8.4-10.2) mg/dL Total Bilirubin (0.2-1.3) mg/dL AST (17-59) U/L ALT (21-72) U/L Alkaline Phosphatase (38-126) U/L Total Protein (6.3-8.2) g/dL Albumin (3.5-5.0) g/dL Urine Color Yellow Urine Appearance Cloudy (Clear) Urine pH 5.5 (5.0-8.0) Ur Specific [place] 1.020 (1.001-1.035) Urine Protein 1+ H (Negative) Urine Glucose (UA) Negative (Negative) Urine Ketones Negative (Negative) Urine Blood Moderate H (Negative) Urine Nitrite Negative (Negative) Urine Bilirubin Negative (Negative) Urine Urobilinogen <2.0 (<2.0) mg/dL Ur Leukocyte Esterase Large H (Negative) Urine RBC 73 H (0-5) /hpf Urine WBC 82 H (0-5) /hpf Urine Mucus Rare H (None) /hpf Disposition Decision to Admit Reason: Admit from EC Decision Date: 10/21/18 Decision Time: 22:41 <Zoë Elizabeth - Last Filed: 10/21/18 23:10> <Cole Springer - Last Filed: 10/23/18 10:19> Clinical Impression: Urinary tract infection, Generalized weakness Disposition: ADMITTED IP TO THIS [facility] Condition: Serious
[2018-10-21 20:07] LABS: Albumin 4.5 g/dL (3.5-5.0); Calcium 9.5 mg/dL (8.4-10.2); Potassium 5.2 mmol/L (3.5-5.1); Total Bilirubin 0.2 mg/dL (0.2-1.3); Total Protein 7.3 g/dL (6.3-8.2)
[2018-10-21 20:18] LABS: Prothrombin Time 10.7 sec (9.0-12.0)
[2018-10-21 20:30] LABS: Anisocytosis Slight; Basophils % (A) 0 %; Eosinophils # (A) 0.1 k/uL (0-0.7); Eosinophils % (A) 1 %; HCT 33.3 % (39.0-53.0); HGB 10.9 gm/dL (13.0-17.5); Hypochromasia Slight; Lymphocytes # (A) 1.2 k/uL (1.0-4.8); Lymphocytes % (A) 17 %; MCH 27.1 pg (25.0-35.0); MCHC 32.6 g/dL (31.0-37.0); MCV 83.2 fL (80.0-100.0); Mean Platelet Volume 9.1; Monocytes # (A) 0.3 k/uL (0-1.0); Monocytes % (A) 5 %; Neutrophils # (A) 5.6 k/uL (1.3-7.7); Neutrophils % (A) 76 %; Platelet Count 138 k/uL (150-450); Poikilocytosis Slight; RDW 16.6 % (11.5-15.5); WBC 7.4 k/uL (3.8-10.6)
[2018-10-21] MEDS ORDERED: FENOFIBRATE 160 MG TAB PO STA (20:47)
[2018-10-21] MEDS ORDERED: PANTOPRAZOLE 40 MG TABLET PO STA (20:47)
[2018-10-21] MEDS ORDERED: CARVEDILOL 12.5 MG TAB PO STA (20:47)
[2018-10-21] MEDS ORDERED: ZIPRASIDONE 20 MG CAP PO STA (20:47)
[2018-10-21] MEDS ORDERED: PRAVASTATIN SODIUM 80 MG TAB PO STA (20:47)
[2018-10-21] MEDS ORDERED: BACLOFEN 10 MG TAB PO STA (20:47)
[2018-10-21] MEDS ORDERED: INSULIN DETEMIR (LEVEMIR) 100 UNIT/ML SYR SQ STA (20:47)
[2018-10-21] MEDS ORDERED: carBAMazepine 200 MG TAB PO STA (20:47)
[2018-10-21] MEDS ORDERED: PREGABALIN 100 MG CAP PO STA (20:47)
[2018-10-21] MEDS ORDERED: TAMSULOSIN 0.4 MG CAP.ER.24H PO STA (20:47)
[2018-10-21 21:08] LABS: Appearance,Urine Cloudy (Clear); Bilirubin,Urine Negative (Negative); Blood,Urine Moderate (Negative); Color,Urine Yellow; Glucose,Urine (UA) Negative (Negative); Ketones,Urine Negative (Negative); Leukocyte Esterase,Urine Large (Negative); Mucus,Urine Rare /hpf; Nitrite,Urine Negative (Negative); PH, Urine 5.5 (5.0-8.0); Protein,Urine 1+ (Negative); RBC,Urine 73 /hpf (0-5); Urobilinogen,Urine <2.0 mg/dL (<2.0); WBC,Urine 82 /hpf (0-5)
[2018-10-21] MEDS ORDERED: NALOXONE 0.4 MG/ML 1 ML VIAL IV PRN (22:39)
[2018-10-21] MEDS ORDERED: ACETAMINOPHEN TAB 325 MG TAB PO PRN (22:39)
[2018-10-22] MEDS ORDERED: DICLOFENAC SODIUM GEL 100 GM TUBE TOPICAL PRN (00:26)
[2018-10-22] MEDS ORDERED: clonazePAM 0.5 MG TAB PO PRN (00:26)
[2018-10-22] MEDS ORDERED: DEXTROSE 4 GM CHEWABLE PO PRN (00:26)
[2018-10-22] MEDS ORDERED: PREGABALIN 100 MG CAP PO PRN (00:26)
[2018-10-22] MEDS ORDERED: ALBUTEROL NEBULIZED 2.5 MG/3 ML INHALATION PRN (00:26)
[2018-10-22] MEDS ORDERED: ALPRAZolam 0.25 MG TAB PO PRN (00:33)
[2018-10-22] MEDS: SODIUM CHLORIDE 0.9% 1,000 ML IV SCH ×2 (01:25→16:38)
[2018-10-22] MEDS: LEVOTHYROXINE 50 MCG TAB PO SCH (05:38)
[2018-10-22 07:15] LABS: Glucose,Whole Blood 211 mg/dL (75-99)
[2018-10-22] MEDS: SERTRALINE 100 MG TAB PO SCH (08:02)
[2018-10-22] MEDS: ALLOPURINOL 100 MG TAB PO SCH ×2 (08:02→21:33)
[2018-10-22] MEDS: CARVEDILOL 12.5 MG TAB PO SCH ×2 (08:02→16:37)
[2018-10-22] MEDS: metFORMIN 500 MG TAB PO SCH ×2 (08:02→21:33)
[2018-10-22] MEDS: PANTOPRAZOLE 40 MG TABLET PO SCH ×2 (08:03→21:33)
[2018-10-22] MEDS: CLOPIDOGREL 75 MG TAB PO SCH (08:03)
[2018-10-22] MEDS: FINASTERIDE 5 MG TAB PO SCH (08:03)
[2018-10-22] MEDS: amLODIPine 10 MG TAB PO SCH (08:03)
[2018-10-22] MEDS: BACLOFEN 10 MG TAB PO SCH ×3 (08:03→21:32)
[2018-10-22] MEDS: LORATADINE 10 MG TAB PO SCH (08:03)
[2018-10-22] MEDS: FENOFIBRATE 160 MG TAB PO SCH (08:03)
[2018-10-22] MEDS: carBAMazepine 200 MG TAB PO SCH ×2 (08:03→16:37)
[2018-10-22] MEDS: THIAMINE 100 MG TAB PO SCH (08:03)
[2018-10-22] MEDS: FOLIC ACID 1 MG TAB PO SCH (08:03)
[2018-10-22] MEDS: HEPARIN SODIUM,PORCINE 5,000 UNIT/ML 1 ML VIAL SQ SCH ×2 (08:04→21:34)
[2018-10-22] MEDS: INSULIN ASPART (NovoLOG) 100 UNIT/ML VIAL SQ SCH ×3 (08:04→18:01)
[2018-10-22] MEDS: MULTIVITAMINS, THERA 1 EACH TAB PO SCH ×2 (08:08→12:52)
[2018-10-22] MEDS: ZIPRASIDONE 20 MG CAP PO SCH ×3 (08:08→22:08)
[2018-10-22] MEDS: FLUTICASONE 50MCG/SPRAY NASAL 16GM EA NOSTRIL SCH ×2 (08:08→22:08)
[2018-10-22 08:17] LABS: Anisocytosis Slight; Basophils % (A) 0 %; Eosinophils # (A) 0.1 k/uL (0-0.7); Eosinophils % (A) 1 %; HCT 30.6 % (39.0-53.0); HGB 9.9 gm/dL (13.0-17.5); Hypochromasia Slight; Lymphocytes # (A) 1.3 k/uL (1.0-4.8); Lymphocytes % (A) 23 %; MCH 27.2 pg (25.0-35.0); MCHC 32.3 g/dL (31.0-37.0); MCV 84.2 fL (80.0-100.0); Mean Platelet Volume 8.4; Monocytes # (A) 0.3 k/uL (0-1.0); Monocytes % (A) 6 %; Neutrophils # (A) 3.6 k/uL (1.3-7.7); Neutrophils % (A) 68 %; Platelet Count 132 k/uL (150-450); Poikilocytosis Slight; RBC 3.63 m/uL (4.30-5.90); RDW 16.4 % (11.5-15.5); WBC 5.4 k/uL (3.8-10.6)
[2018-10-22 08:20] LABS: Calcium 9.2 mg/dL (8.4-10.2); Potassium 5.2 mmol/L (3.5-5.1)
--- NOTE | 2018-10-22 08:52 | HP ---
HISTORY AND PHYSICAL DATE OF SERVICE: 10/21/2018 CHIEF COMPLAINT: Weakness. HISTORY OF PRESENT ILLNESS: This 68-year-old gentleman with a past medical history of multiple medical problems including recurrent UTI, history of diabetes type 2, history of DVT, history of stroke, history of hypertension, myocardial infarction, pulmonary embolism, sleep apnea, history of morbid obesity, history of bipolar depression, PTSD being followed by [facility] in the outpatient setting was admitted with complaints of weakness. The patient had severe weakness and dysuria and urinary tract symptoms. The patient is also having feelings of urgency, frequency and dysuria. The patient also complains of fatigue and the patient has also had mild fever. Patient came to [facility] and was admitted to the hospital for further evaluation and treatment at this time. After admission, white count was 7.5, hemoglobin 10.9, potassium 5.2. UA is noted. Of note previously, the patient had multiple episodes of UTI and the patient also had multiple organisms, most recent is Enterobacter faecalis. Previously patient had E coli. Patient also had clostridium perfringens sepsis also previously. There is no history of any headache, loss of consciousness, seizures, chest pain, palpitations, hematochezia or melena. Patient is found to be severely dehydrated and also slurring of speech also. PAST MEDICAL HISTORY: History of CVA, TIA, diabetes, DVT, GERD, hypertension, history of myocardial infarction, history of pulmonary embolus, history of sleep apnea, morbid obesity, hernia repair, bipolar depression, PTSD. MEDICATIONS: Home medications are as follows: 1. Metformin 1000 mg p.o. b.i.d. 2. Klonopin 0.5 mg t.i.d. p.r.n. 3. Tegretol 400 mg p.o. t.i.d. 4. Norvasc 10 mg p.o. daily. 5. Geodon 20 mg p.o. t.i.d. 6. Flomax 0.8 q.h.s. 7. Celeste 128 1 application q.h.s. 8. Zoloft 200 mg p.o. daily. 9. Zantac 300 mg q.h.s. 10.Lyrica 100 mg p.o. t.i.d. p.r.n. 11.Pravachol 80 mg q.h.s. 12.Protonix 40 mg p.o. b.i.d. 13.Fish oil 2 capsules b.i.d. 14.Multivitamins 1 p.o. daily. 15.Lotrimin 1 application b.i.d. 16.Claritin 10 mg p.o. daily. 17.Synthroid 50 mcg p.o. daily. 18.NovoLog 50 units subcu a.c. t.i.d. 19.Lantus 120 units subcu q.h.s. 20.NovoLog a.c. t.i.d. 21.Lopid 600 mg p.o. b.i.d. 22.Flonase 1 spray b.i.d. 23.Proscar 5 mg p.o. daily. 24.Vitamin D2 100,000 p.o. Friday. 25.Voltaren gel 1 application b.i.d. p.r.n. 26.Glucose 4 g p.o. t.i.d. p.r.n. 27.Plavix 75 mg p.o. daily. 28.Coreg 12.5 mg b.i.d. 29. 1 drop both eyes q.i.d. 30.Lioresal 10 mg b.i.d. 31.Aricept 20 mg q.h.s. 32.Zyloprim 100 mg p.o. b.i.d. 33.ProAir 2 puffs q.4 p.r.n. ALLERGIES: ASPIRIN, ETODOLAC, OXYBUTYNIN. FAMILY HISTORY: History of lung cancer. SOCIAL HISTORY: No history of smoking. No history of alcohol. REVIEW OF SYSTEMS: ENT: No diminished vision. No diminished hearing. CARDIOVASCULAR: No angina or palpitations. RESPIRATORY: As mentioned earlier. GASTROINTESTINAL: As mentioned earlier. : No dysuria or hematuria. NERVOUS SYSTEMS: No numbness or weakness. ALLERGY/IMMUNOLOGY: No history of asthma or hayfever. MUSCULOSKELETAL as mentioned earlier. HEMATOLOGY/ONCOLOGY: No history of anemia. ENDOCRINE: As mentioned earlier. CONSTITUTIONAL: As mentioned earlier. DERMATOLOGY: Negative. RHEUMATOLOGY: Negative. PSYCHIATRY: As mentioned earlier. PHYSICAL EXAMINATION: Alert and oriented x3. Pulse 67. Blood pressure 152/58, respiration 21, temperature 98.1, pulse ox 97% on 2 L. HEENT: Conjunctivae normal. NECK: No JVD. CARDIOVASCULAR: S1, S2 muffled. RESPIRATION: Breath sounds diminished in the bases. A few scattered rhonchi and crackles. ABDOMEN: Soft, nontender. No mass palpable. LEGS no edema. No swelling. NERVOUS SYSTEM: Higher functions as mentioned earlier. Moves all four limbs. No focal deficits. LYMPHATICS: No lymph nodes palpable in the neck, axillae or groin. SKIN: No ulcer, no rashes and no bleeding. JOINTS: No active no active deforming arthropathy. LABS: WBC 7.2, hemoglobin 10.9, sodium 140, potassium 5.2, glucose 237. ASSESSMENT: 1. Acute urinary tract infection with sepsis. 2. Generalized weakness and tiredness. 3. Dehydration. 4. Gait dysfunction. 5. Diabetes mellitus type 2. 6. History of recurrent urinary tract infections. 7. History of cerebrovascular accident/transient ischemic attack. 8. History of gastroesophageal reflux disease. 9. Hypertension. 10.History of myocardial infarction. 11.History of pulmonary embolism. 12.History of sleep apnea. 13.Hypothyroidism. 14.History of sleep apnea. 15.History of peripheral neuropathy. 16.History of gout. 17.History of chronic back pain. 18.Degenerative joint disease. 19.History of C difficile colitis. 20.History of colon polyps. 21.History of bipolar depression, post traumatic stress disorder. 22.Obesity with body mass of 37.1. 23.FULL CODE. RECOMMENDATIONS AND DISCUSSION: This 68-year-old gentleman who presented with multiple complex medical issues, we will monitor the patient closely, continue the current medications, management and symptomatic treatment. We will initiate broad-spectrum IV antibiotics. Obtain cultures. I would also recommend Infectious Disease evaluation. Resume the home medications. DVT prophylaxis. I would also recommend PT/OT evaluation, possible ECF rehab. Resume the home medications. Supplement vitamins. Overall prognosis guarded because of multiple complex medical issues. Further recommendations to follow. A copy of this dictation being forwarded to Dr. Gutierrez and the [facility] for evaluation. Once again the patient is being discharged in stable condition with guarded prognosis. MMODL / IJN: [id number] /
[2018-10-22] MEDS ORDERED: NON-FORMULARY DRUG (Omega-3 Fatty Acids/Fish Oil [Fish Oil 1,000 Mg Softgel] 2 CAP) PO SCH (09:00)
[2018-10-22] MEDS ORDERED: CARBOXYMETHYLCELLULOSE SODIUM BOTH EYES SCH (09:00)
[2018-10-22 11:40] LABS: Glucose,Whole Blood 151 mg/dL (75-99)
[2018-10-22] MEDS: MICONAZOLE NITRATE TOPICAL SCH (16:38)
[2018-10-22 17:27] LABS: Glucose,Whole Blood 103 mg/dL (75-99)
--- NOTE | 2018-10-22 18:16 | PN ---
PROGRESS NOTE DATE OF SERVICE: 10/22/2018 This 68-year-old gentleman who was admitted with significant weakness had possible UTI with sepsis. The patient being closely monitored at this time. The patient started on IV antibiotics. Infectious disease evaluation has been also sought. Potassium 5.2. PAST MEDICAL HISTORY: Reviewed. REVIEW OF SYSTEMS: CARDIOVASCULAR: No angina or palpitations. RESPIRATION: As mentioned earlier. GASTROINTESTINAL: As mentioned earlier. : No dysuria. CENTRAL NERVOUS SYSTEM: Mild diffuse weakness. CURRENT MEDICATIONS: Reviewed and include: 1. Tylenol 650 q.6 p.r.n. 2. [place] 5 mg q6h p.r.n. 3. Ventolin 2.5 q.4 p.r.n. 4. Zyloprim 100 mg p.o. b.i.d. 5. Xanax 0.5 t.i.d. 6. Norvasc 10 mg p.o. daily. 7. Lioresal 10 mg p.o. b.i.d. 8. Tegretol 400 mg t.i.d. 9. Coreg 12.5 mg b.i.d. 10.Rocephin 1 g daily. 11.Plavix 75 mg daily. 12.Vitamin D2. 13.Pepcid. 14.Lofibra. 15.Proscar. 16.Flonase. 17.Folic acid. 18.Heparin. 19.Levemir. 20.Synthroid. 21.Claritin. 22.Glucophage. 23.Multivitamins. 24.Narcan. 25.Protonix. 26.Pravachol. 27.Lyrica. 28.Zoloft. 29.Celeste 18. 30.Flomax. 31.Vitamin B1. 32.Geodon. Doses reviewed. PHYSICAL EXAM: Patient is alert, oriented x2. Pulse 74. Blood pressure 104/40, respirations 22, temperature 98 degrees, pulse ox 94% on room air. HEENT: Conjunctivae normal. NECK: No JVD. CARDIOVASCULAR: S1, S2 muffled. RESPIRATIONS: Breath sounds diminished in the bases. A few scattered rhonchi and crackles. ABDOMEN: Soft, obese, nontender. LEGS: Minimal leg edema. NERVOUS SYSTEM: Higher functions as mentioned. Moves all four limbs. No focal deficits. Diffuse weakness and some tremors also present. LYMPHATICS: No lymph nodes palpable in the neck, axillae or groin. SKIN: No ulcers, rashes or bleeding. JOINTS: No active deforming arthropathy. LAB STUDIES: WBC 5.5, hemoglobin 9.9, sodium 144, potassium 5.2, glucose noted. UA noted. Cultures are pending at this time. ASSESSMENT: 1. Acute urinary tract infection with sepsis, present on admission. 2. Generalized weakness and tiredness. 3. Change in mental status, metabolic encephalopathy, possible acute sepsis. 4. Dehydration, present on admission. 5. Gait dysfunction. 6. Diabetes type 2. 7. History of recurrent urinary tract infection. 8. History of cerebrovascular accident, transient ischemic attack. 9. History of gastroesophageal reflux disease. 10.Hypertension. 11.History of myocardial infarction. 12.History of pulmonary embolus. 13.History of obstructive sleep apnea. 14.Hypothyroidism. 15.History of peripheral neuropathy. 16.History of gout. 17.Chronic back pain. 18.History of degenerative joint disease. 19.History of C difficile colitis. 20.History of colonic polyps. 21.History of bipolar depression. 22.Post-traumatic stress disorder. 23.Obesity with body mass index of 37.1. 24.FULL CODE. RECOMMENDATIONS AND DISCUSSION: In this 68-year-old gentleman who presented with multiple complex medical issues. We will monitor the patient closely, continue the current medications. Continue symptomatic treatment, continue with IV antibiotics. PT/OT evaluation, possible ECF rehab. Continue with infectious disease evaluation. Monitor potassium closely. Continue the rest of medications. Guarded prognosis because of multiple complex medical issues. Further recommendations to follow. MMODL / IJN: [id number] /
[2018-10-22] MEDS: PRAVASTATIN SODIUM 80 MG TAB PO SCH (21:32)
[2018-10-22] MEDS: TAMSULOSIN 0.4 MG CAP.ER.24H PO SCH (21:33)
[2018-10-22] MEDS: FAMOTIDINE 20 MG TAB PO SCH (21:34)
[2018-10-22 21:59] LABS: Glucose,Whole Blood 100 mg/dL (75-99)
[2018-10-22] MEDS: SODIUM CHLORIDE 5% OPHTH OINT 3.5 GM TUBE BOTH EYES SCH (22:08)
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
[2018-10-22] MEDS: INSULIN DETEMIR (LEVEMIR) 100 UNIT/ML SYR SQ SCH (23:37)
[2018-10-23] MEDS: carBAMazepine 200 MG TAB PO SCH ×4 (01:00→21:23)
[2018-10-23] MEDS: MICONAZOLE NITRATE TOPICAL SCH ×3 (01:03→21:18)
[2018-10-23] MEDS: LEVOTHYROXINE 50 MCG TAB PO SCH (05:27)
[2018-10-23] MEDS: amLODIPine 10 MG TAB PO SCH (05:27)
[2018-10-23] MEDS: SODIUM CHLORIDE 0.9% 1,000 ML IV SCH ×2 (05:28→17:44)
[2018-10-23 07:25] LABS: Glucose,Whole Blood 197 mg/dL (75-99)
[2018-10-23] MEDS: CLOPIDOGREL 75 MG TAB PO SCH (07:58)
[2018-10-23] MEDS: SERTRALINE 100 MG TAB PO SCH (07:58)
[2018-10-23] MEDS: ZIPRASIDONE 20 MG CAP PO SCH ×3 (07:58→21:23)
[2018-10-23] MEDS: metFORMIN 500 MG TAB PO SCH ×2 (07:58→21:16)
[2018-10-23] MEDS: FINASTERIDE 5 MG TAB PO SCH (07:59)
[2018-10-23] MEDS: CARVEDILOL 12.5 MG TAB PO SCH ×2 (08:00→17:45)
[2018-10-23] MEDS: LORATADINE 10 MG TAB PO SCH (08:00)
[2018-10-23] MEDS: PANTOPRAZOLE 40 MG TABLET PO SCH ×2 (08:00→21:16)
[2018-10-23] MEDS: FENOFIBRATE 160 MG TAB PO SCH (08:00)
[2018-10-23] MEDS: ALLOPURINOL 100 MG TAB PO SCH ×2 (08:00→21:16)
[2018-10-23] MEDS: HEPARIN SODIUM,PORCINE 5,000 UNIT/ML 1 ML VIAL SQ SCH ×2 (08:01→21:17)
[2018-10-23] MEDS: BACLOFEN 10 MG TAB PO SCH ×3 (08:01→21:17)
[2018-10-23] MEDS: INSULIN ASPART (NovoLOG) 100 UNIT/ML VIAL SQ SCH ×3 (08:06→17:44)
[2018-10-23] MEDS: MULTIVITAMINS, THERA 1 EACH TAB PO SCH ×2 (08:08→12:18)
[2018-10-23] MEDS: FLUTICASONE 50MCG/SPRAY NASAL 16GM EA NOSTRIL SCH ×2 (08:08→21:19)
[2018-10-23] MEDS: HYDROcodone/APAP 5-325MG 1 EACH TAB PO PRN (08:15)
[2018-10-23 08:46] LABS: Anisocytosis Slight; Basophils % (A) 0 %; Eosinophils # (A) 0.1 k/uL (0-0.7); Eosinophils % (A) 1 %; HCT 32.1 % (39.0-53.0); HGB 10.4 gm/dL (13.0-17.5); Hypochromasia Slight; Lymphocytes # (A) 1.3 k/uL (1.0-4.8); Lymphocytes % (A) 20 %; MCH 27.1 pg (25.0-35.0); MCHC 32.3 g/dL (31.0-37.0); MCV 83.9 fL (80.0-100.0); Mean Platelet Volume 9.6; Monocytes # (A) 0.3 k/uL (0-1.0); Monocytes % (A) 6 %; Neutrophils # (A) 4.4 k/uL (1.3-7.7); Neutrophils % (A) 71 %; Platelet Count 132 k/uL (150-450); Poikilocytosis Slight; RBC 3.83 m/uL (4.30-5.90); RDW 16.5 % (11.5-15.5); WBC 6.3 k/uL (3.8-10.6)
[2018-10-23 09:08] LABS: Calcium 9.6 mg/dL (8.4-10.2); Potassium 5.1 mmol/L (3.5-5.1)
[2018-10-23 11:29] LABS: Glucose,Whole Blood 230 mg/dL (75-99)
[2018-10-23] MEDS: FOLIC ACID 1 MG TAB PO SCH (12:19)
[2018-10-23] MEDS: THIAMINE 100 MG TAB PO SCH (12:19)
[2018-10-23 16:58] LABS: Glucose,Whole Blood 122 mg/dL (75-99)
--- NOTE | 2018-10-23 20:39 | PN ---
PROGRESS NOTE DATE OF SERVICE: 10/23/2018 This 68-year-old gentleman was admitted with UTI with possible sepsis and generalized weakness and tiredness. Patient is on broad-spectrum IV antibiotics. Urine culture is showing gram-negative bacilli. No fever. No cough. On exam, alert and oriented x3. Pulse 60, blood pressure 140/69, respiration 16, temperature 98.2, pulse ox 98% on 3 L. HEENT: Conjunctivae normal. NECK: No jugular venous distention. CARDIOVASCULAR SYSTEM: S1, S2 muffled. RESPIRATORY SYSTEM: Breath sounds diminished at the bases. No rhonchi. No crackles. ABDOMEN: Soft, non-tender. No mass palpable. LEGS: No edema. No swelling. NERVOUS SYSTEM: No focal deficit. Labs at this time show WBC 6.3, hemoglobin 10.4. Accu-Chek is noted. ASSESSMENT: 1. Acute urinary tract infection with sepsis, present on admission. 2. Generalized weakness and tiredness. 3. Change in mental status, acute metabolic encephalopathy with possible acute sepsis. 4. Dehydration, present on admission. 5. Gait dysfunction. 6. Diabetes mellitus, type 2. 7. History of recurrent urinary tract infections. 8. History of cerebrovascular accident, transient ischemic attack. 9. History of gastroesophageal reflux disease. 10.Hypertension. 11.History of myocardial infarction. 12.History of pulmonary embolism. 13.History of obstructive sleep apnea. 14.Hypothyroidism. 15.History of peripheral neuropathy. 16.History of gout. 17.Chronic back pain. 18.History of degenerative joint disease. 19.History of Clostridium difficile colitis. 20.History of colonic polyps. 21.Bipolar, depression. 22.Post-traumatic stress disorder. 23.Obesity with body mass index of 37.1. 24.FULL CODE. RECOMMENDATIONS AND DISCUSSION: I recommend to continue current medications, continue with the monitoring, symptomatic treatment. Continue with antibiotics. Await final report. PT/OT evaluation, possible ECF rehab. Guarded prognosis. Further recommendations to follow. MMODL / IJN: [id number] /
[2018-10-23] MEDS: ONDANSETRON 4 MG/2 ML VIAL IVP PRN (20:40)
[2018-10-23 20:46] LABS: Glucose,Whole Blood 118 mg/dL (75-99)
[2018-10-23] MEDS: TAMSULOSIN 0.4 MG CAP.ER.24H PO SCH (21:16)
[2018-10-23] MEDS: FAMOTIDINE 20 MG TAB PO SCH (21:17)
[2018-10-23] MEDS: PRAVASTATIN SODIUM 80 MG TAB PO SCH (21:17)
[2018-10-23] MEDS: SODIUM CHLORIDE 5% OPHTH OINT 3.5 GM TUBE BOTH EYES SCH (21:19)
--- NOTE | 2018-10-23 22:41 | PN ---
PROGRESS NOTE DATE OF SERVICE: 10/23/2018 REASON FOR FOLLOWUP: Urinary tract infection. INTERVAL HISTORY: The patient is currently afebrile. The patient has been breathing comfortably. Denies having any chest pain or any cough. No nausea, vomiting or any diarrhea. PHYSICAL EXAMINATION: Blood pressure 155/72 with a pulse of 63, temperature 98.8. He is 94% on 3 L nasal cannula. General description is an elderly male lying in bed in no distress. RESPIRATORY SYSTEM: Unlabored breathing. Clear to auscultation anteriorly. HEART: S1, S2. Regular rate and rhythm. ABDOMEN: Soft. No tenderness. LABS: Hemoglobin is 10.4, white count 6.3, BUN of 24, creatinine 1.06. Urine with gram- negative. Blood culture has been negative so far. DIAGNOSTIC IMPRESSION AND PLAN: Patient with a gram-negative urinary tract infection in this patient who presented to hospital with urinary symptoms and retention, status post Altman catheter placement. Patient is currently covered with Rocephin; to continue while waiting for the culture to finalize. Continue with supportive care. MMODL / IJN: [id number] /
[2018-10-23 23:02] LABS: Glucose,Whole Blood 144 mg/dL (75-99)
[2018-10-24] MEDS: INSULIN DETEMIR (LEVEMIR) 100 UNIT/ML SYR SQ SCH ×2 (00:11→23:36)
[2018-10-24 02:41] LABS: Glucose,Whole Blood 199 mg/dL (75-99)
[2018-10-24] MEDS: SODIUM CHLORIDE 0.9% 1,000 ML IV SCH ×2 (06:18→23:37)
[2018-10-24] MEDS: LEVOTHYROXINE 50 MCG TAB PO SCH (06:18)
[2018-10-24 07:15] LABS: Glucose,Whole Blood 222 mg/dL (75-99)
[2018-10-24] MEDS: SERTRALINE 100 MG TAB PO SCH (08:51)
[2018-10-24] MEDS: HYDROcodone/APAP 5-325MG 1 EACH TAB PO PRN (08:51)
[2018-10-24] MEDS: PANTOPRAZOLE 40 MG TABLET PO SCH ×2 (08:51→20:54)
[2018-10-24] MEDS: FINASTERIDE 5 MG TAB PO SCH (08:51)
[2018-10-24] MEDS: BACLOFEN 10 MG TAB PO SCH ×3 (08:52→20:54)
[2018-10-24] MEDS: ALLOPURINOL 100 MG TAB PO SCH ×2 (08:52→20:55)
[2018-10-24] MEDS: amLODIPine 10 MG TAB PO SCH (08:52)
[2018-10-24] MEDS: metFORMIN 500 MG TAB PO SCH ×2 (08:52→20:54)
[2018-10-24] MEDS: THIAMINE 100 MG TAB PO SCH (08:52)
[2018-10-24] MEDS: FOLIC ACID 1 MG TAB PO SCH (08:52)
[2018-10-24] MEDS: FENOFIBRATE 160 MG TAB PO SCH (08:52)
[2018-10-24] MEDS: CARVEDILOL 12.5 MG TAB PO SCH ×2 (08:52→17:19)
[2018-10-24] MEDS: LORATADINE 10 MG TAB PO SCH (08:52)
[2018-10-24] MEDS: CLOPIDOGREL 75 MG TAB PO SCH (08:52)
[2018-10-24] MEDS: ZIPRASIDONE 20 MG CAP PO SCH ×3 (08:53→20:56)
[2018-10-24] MEDS: carBAMazepine 200 MG TAB PO SCH ×3 (08:53→20:56)
[2018-10-24 08:54] LABS: Calcium 9.9 mg/dL (8.4-10.2); Potassium 5.2 mmol/L (3.5-5.1)
[2018-10-24] MEDS: HEPARIN SODIUM,PORCINE 5,000 UNIT/ML 1 ML VIAL SQ SCH ×2 (08:54→20:55)
[2018-10-24] MEDS: INSULIN ASPART (NovoLOG) 100 UNIT/ML VIAL SQ SCH ×3 (08:54→17:19)
[2018-10-24] MEDS: MULTIVITAMINS, THERA 1 EACH TAB PO SCH ×2 (08:55)
[2018-10-24] MEDS: FLUTICASONE 50MCG/SPRAY NASAL 16GM EA NOSTRIL SCH ×2 (08:55→23:36)
[2018-10-24] MEDS: MICONAZOLE NITRATE TOPICAL SCH ×2 (08:56→22:47)
[2018-10-24 09:03] LABS: Anisocytosis Slight; Basophils % (A) 0 %; Eosinophils % (A) 1 %; HCT 32.7 % (39.0-53.0); HGB 10.4 gm/dL (13.0-17.5); Lymphocytes # (A) 0.9 k/uL (1.0-4.8); Lymphocytes % (A) 15 %; MCH 26.4 pg (25.0-35.0); MCHC 31.8 g/dL (31.0-37.0); MCV 83.2 fL (80.0-100.0); Mean Platelet Volume 8.8; Monocytes # (A) 0.3 k/uL (0-1.0); Monocytes % (A) 4 %; Neutrophils # (A) 4.6 k/uL (1.3-7.7); Neutrophils % (A) 78 %; Platelet Count 140 k/uL (150-450); Poikilocytosis Slight; RBC 3.94 m/uL (4.30-5.90); WBC 5.9 k/uL (3.8-10.6)
[2018-10-24] MEDS: ONDANSETRON 4 MG/2 ML VIAL IVP PRN ×2 (09:03→19:32)
[2018-10-24 11:45] LABS: Glucose,Whole Blood 256 mg/dL (75-99)
[2018-10-24 16:39] LABS: Glucose,Whole Blood 160 mg/dL (75-99)
--- NOTE | 2018-10-24 19:11 | PN ---
PROGRESS NOTE DATE OF SERVICE: 10/24/2018 This 68-year-old gentleman who was admitted with acute urinary tract infection with sepsis, is being closely monitored. No chest pain. No palpitations. No fever. The urine culture showed Proteus mirabilis which is polysensitive. Apparently Dr. Blake is following the patient. No chest pain. No palpitations. No fever. EXAM: Alert and oriented times three. Pulse 65, pressure 140/60, respirations 16, temperature 99.2, pulse ox 94% on 3 L. HEENT is conjunctivae normal. NECK: No JVD. CARDIAC: S1, S2 muffled. RESPIRATORY: Breath sounds diminished at the bases. A few scattered rhonchi. ABDOMEN is soft, nontender. NERVOUS SYSTEM: No focal deficits. LAB STUDIES: WBC 5.2, hemoglobin 10.8, sodium 140, potassium 5.2. ASSESSMENT: 1. Acute urinary tract infection with sepsis, present on admission, with Proteus mirabilis. 2. Generalized weakness and tiredness. 3. Change in mental status acute metabolic encephalopathy with possible acute sepsis. 4. Dehydration, present on admission. 5. Gait dysfunction. 6. Diabetes type 2. 7. History of recurrent urinary tract infection. 8. History of cerebrovascular accident, transient ischemic attack. 9. History of gastroesophageal reflux disease. 10.Hypertension. 11.History of myocardial infarction. 12.History of pulmonary embolism. 13.History of obstructive sleep apnea. 14.Hypothyroidism. 15.History of peripheral neuropathy. 16.History of gout. 17.History of chronic back pain. 18.History of degenerative joint disease. 19.History of C difficile colitis. 20.History of colonic polyps. 21.History of bipolar depression. 22.Posttraumatic stress disorder. 23.Obesity with body mass index of 37.1. 24.FULL CODE. RECOMMENDATIONS AND DISCUSSION: Recommend to continue current medications, management and continue with monitoring and symptomatic treatment. Continue with antibiotics. Otherwise PT/OT evaluation. Also recommend possible ECF rehab. Closely follow with Infectious Disease. Patient is nauseous today. I would recommend symptomatic treatment. Further recommendations to follow. MMODL / IJN: [id number] /
[2018-10-24 20:11] LABS: Glucose,Whole Blood 94 mg/dL (75-99)
[2018-10-24] MEDS: PRAVASTATIN SODIUM 80 MG TAB PO SCH (20:54)
[2018-10-24] MEDS: TAMSULOSIN 0.4 MG CAP.ER.24H PO SCH (20:54)
[2018-10-24] MEDS: FAMOTIDINE 20 MG TAB PO SCH (20:55)
[2018-10-24] MEDS: SODIUM CHLORIDE 5% OPHTH OINT 3.5 GM TUBE BOTH EYES SCH (20:56)
--- NOTE | 2018-10-24 21:38 | PN ---
PROGRESS NOTE DATE OF SERVICE: 10/24/2018. REASON FOR FOLLOWUP: Proteus mirabilis urinary tract infection. INTERVAL HISTORY: The patient is currently afebrile. Patient has been breathing comfortably. The patient denies having any chest or any cough, no abdominal pain or any diarrhea. PHYSICAL EXAMINATION: Blood pressure 144/62, with a pulse of 75, temperature 98.2. He is 95% on 3 L nasal cannula. General description is an elderly male lying in bed in no distress. Respiratory system: Unlabored breathing. Clear to auscultation anteriorly. Heart S1, S2. Regular rate and rhythm. Abdomen soft, no tenderness. LABS: Hemoglobin is 10.4, white count 5.9, BUN of 26, creatinine 1.02. Urine with Proteus mirabilis that is sensitive pathogen. DIAGNOSTIC IMPRESSION AND PLAN: Patient with Proteus mirabilis urinary tract infection, patient currently on Rocephin. That will continue for now while the patient is inpatient to finish therapy with oral antibiotic on discharge. Continue supportive care. MMODL / IJN: [id number] /
[2018-10-24 23:09] LABS: Glucose,Whole Blood 164 mg/dL (75-99)
[2018-10-25 02:21] LABS: Glucose,Whole Blood 194 mg/dL (75-99)
[2018-10-25] MEDS: ONDANSETRON 4 MG/2 ML VIAL IVP PRN ×2 (05:57→10:30)
[2018-10-25] MEDS: LEVOTHYROXINE 50 MCG TAB PO SCH (05:57)
[2018-10-25 06:41] LABS: Anisocytosis Slight; Basophils % (A) 0 %; Eosinophils # (A) 0.1 k/uL (0-0.7); Eosinophils % (A) 1 %; HCT 30.5 % (39.0-53.0); HGB 10.1 gm/dL (13.0-17.5); Hypochromasia Slight; Lymphocytes # (A) 1.3 k/uL (1.0-4.8); Lymphocytes % (A) 23 %; MCHC 33.1 g/dL (31.0-37.0); MCV 81.5 fL (80.0-100.0); Mean Platelet Volume 8.8; Monocytes # (A) 0.3 k/uL (0-1.0); Monocytes % (A) 5 %; Neutrophils # (A) 3.7 k/uL (1.3-7.7); Neutrophils % (A) 68 %; Platelet Count 142 k/uL (150-450); Poikilocytosis Slight; RBC 3.75 m/uL (4.30-5.90); RDW 16.4 % (11.5-15.5); WBC 5.5 k/uL (3.8-10.6)
[2018-10-25 06:47] LABS: Glucose,Whole Blood 194 mg/dL (75-99)
[2018-10-25 06:59] LABS: Calcium 9.9 mg/dL (8.4-10.2); Potassium 4.7 mmol/L (3.5-5.1)
[2018-10-25] MEDS: FOLIC ACID 1 MG TAB PO SCH (08:09)
[2018-10-25] MEDS: metFORMIN 500 MG TAB PO SCH ×2 (08:09→20:57)
[2018-10-25] MEDS: FENOFIBRATE 160 MG TAB PO SCH (08:09)
[2018-10-25] MEDS: amLODIPine 10 MG TAB PO SCH (08:09)
[2018-10-25] MEDS: BACLOFEN 10 MG TAB PO SCH ×3 (08:09→20:56)
[2018-10-25] MEDS: CARVEDILOL 12.5 MG TAB PO SCH ×2 (08:09→17:40)
[2018-10-25] MEDS: CLOPIDOGREL 75 MG TAB PO SCH (08:09)
[2018-10-25] MEDS: FINASTERIDE 5 MG TAB PO SCH (08:09)
[2018-10-25] MEDS: HEPARIN SODIUM,PORCINE 5,000 UNIT/ML 1 ML VIAL SQ SCH ×2 (08:09→20:56)
[2018-10-25] MEDS: THIAMINE 100 MG TAB PO SCH (08:09)
[2018-10-25] MEDS: LORATADINE 10 MG TAB PO SCH (08:09)
[2018-10-25] MEDS: ALLOPURINOL 100 MG TAB PO SCH ×2 (08:09→20:55)
[2018-10-25] MEDS: PANTOPRAZOLE 40 MG TABLET PO SCH (08:09)
[2018-10-25] MEDS: SERTRALINE 100 MG TAB PO SCH (08:09)
[2018-10-25] MEDS: carBAMazepine 200 MG TAB PO SCH ×3 (08:10→21:45)
[2018-10-25] MEDS: MICONAZOLE NITRATE TOPICAL SCH ×2 (08:10→21:45)
[2018-10-25] MEDS: MULTIVITAMINS, THERA 1 EACH TAB PO SCH ×2 (08:10→11:47)
[2018-10-25] MEDS: ZIPRASIDONE 20 MG CAP PO SCH ×3 (08:10→21:44)
[2018-10-25] MEDS: INSULIN ASPART (NovoLOG) 100 UNIT/ML VIAL SQ SCH ×3 (08:11→17:43)
[2018-10-25] MEDS: HYDROcodone/APAP 5-325MG 1 EACH TAB PO PRN (08:14)
[2018-10-25] MEDS: FLUTICASONE 50MCG/SPRAY NASAL 16GM EA NOSTRIL SCH ×2 (08:19→20:56)
[2018-10-25] MEDS: SODIUM CHLORIDE 0.9% 1,000 ML IV SCH ×2 (08:19→21:45)
[2018-10-25 11:36] LABS: Glucose,Whole Blood 215 mg/dL (75-99)
[2018-10-25] MEDS ORDERED: METOCLOPRAMIDE 5 MG/ML 2 ML VIAL IVP PRN (12:30)
--- NOTE | 2018-10-25 13:18 | XR ---
EXAMINATION TYPE: XR chest 1V portable DATE OF EXAM: 10/25/2018 COMPARISON: 09/18/2018 HISTORY: Shortness of breath TECHNIQUE: Single frontal view of the chest is obtained. FINDINGS: The heart is enlarged. There is no pneumothorax. Subsegmental changes involving the left p erihilar and lower lobe region. IMPRESSION: 1. Cardiomegaly with perihilar linear changes which may been the basis of atelectasis rather than inf iltrate. Correlate clinically.
[2018-10-25 16:56] LABS: Glucose,Whole Blood 161 mg/dL (75-99)
[2018-10-25 20:20] LABS: Glucose,Whole Blood 100 mg/dL (75-99)
--- NOTE | 2018-10-25 20:26 | PN ---
PROGRESS NOTE DATE OF SERVICE: 10/25/2018. This 68-year-old gentleman with a past medical history of multiple medical problems was admitted with UTI sepsis. Patient is still having nausea. The patient being closely monitored. A chest x-ray done today which was personally reviewed by me, showed some cardiomegaly and infiltrates and atelectasis. No chest pain. No palpitations. No fever. The patient has complaints of tremors and weakness. PAST MEDICAL HISTORY: Reviewed. REVIEW OF SYSTEMS: CARDIOVASCULAR: No angina or palpitations. RESPIRATIONS: As mentioned earlier. GI as mentioned earlier. : No dysuria. CENTRAL NERVOUS SYSTEM: No numbness or weakness. CURRENT MEDICATIONS: Reviewed and include: 1. Tylenol 650 q.6h p.r.n. 2. Sturgeon 5 mg q.6h p.r.n. 3. Xanax 0.5 t.i.d. 4. Norvasc 10 mg. 5. Lioresal 10 mg b.i.d. 6. Tegretol 400 mg b.i.d. 7. Coreg 12.5 mg b.i.d. 8. Rocephin 1 g daily. 9. Plavix 75 mg daily. 10.Vitamin D2 daily. 11.Lofibra 160 mg p.o. daily. 12.Proscar 5 mg p.o. daily. 13.Flonase 1 spray daily. 14.Folic acid 1 mg. 15.Glucosamine. 16.Heparin 5000 subcu b.i.d. 17.NovoLog scale. 18.Levemir 120 units subcu q.h.s. 19.Synthroid 50 mcg p.o. b.i.d. 20.Claritin 10 mg. 21.Glucophage 1000 mg p.o. b.i.d. 22.Reglan 5 mg q.6h. 23.Multivitamins. 24.Narcan. 25.Miconazole. 26.Zofran. 27.Protonix. 28.P.r.n. medication. 29.Dose of all medications reviewed. EXAM: Alert and oriented times three. Pulse 58, blood pressure 160/78, respiration 18, temperature 98.6, pulse ox 98% on 3 L. HEENT: Normal. NECK: No JVD. CARDIOVASCULAR: S1, S2 muffled. RESPIRATION: Breath sounds diminished in the bases. A few scattered rhonchi. No crackles. Abdomen is soft. LEGS: No edema. No swelling. CENTRAL NERVOUS SYSTEM: Mild diffuse weakness. LABS: WBC 5.2, hemoglobin 10.1. The glucose 215. ASSESSMENT: 1. Acute urinary tract infection sepsis present on admission with Proteus mirabilis. 2. Atelectasis. 3. Generalized weakness and tiredness. 4. Tremors. 5. Change in mental status, acute metabolic encephalopathy with possible acute sepsis, present on admission. 6. Dehydration, present on admission. 7. Gait dysfunction. 8. Diabetes mellitus type 2. 9. History of recurrent urinary tract infections. 10.History of cerebrovascular accident, transient ischemic attack. 11.History of gastroesophageal reflux disease. 12.Hypertension. 13.History of myocardial infarction. 14.History of pulmonary embolus. 15.History of obstructive sleep apnea. 16.Hypothyroidism. 17.History of peripheral neuropathy. 18.History of gout. 19.History of chronic back pain. 20.History of degenerative joint disease. 21.History of C difficile colitis. 22.History of colon polyps. 23.Bipolar depression. 24.Posttraumatic stress disorder. 25.Obesity with body mass index of 37.1. 26.FULL CODE. RECOMMENDATIONS AND DISCUSSION: Recommend in this 68-year-old gentleman who presented with multiple medical problems, we will monitor the patient closely, continue the current medications, management and symptomatic treatment. Otherwise, I would recommend continue the antibiotics. The white count is normalized at this time. The cultures are showing Proteus mirabilis only. I would recommend repeat blood cultures and continue to monitor. Patient is on IV Rocephin at this point. PT/OT evaluation, possible ECF rehab. Guarded prognosis. Further recommendations to follow. MMODL / IJN: [id number] /
[2018-10-25] MEDS: INSULIN DETEMIR (LEVEMIR) 100 UNIT/ML SYR SQ SCH (20:56)
[2018-10-25] MEDS: PANTOPRAZOLE 40 MG/10 ML VIAL IVP SCH (20:57)
[2018-10-25] MEDS: PRAVASTATIN SODIUM 80 MG TAB PO SCH (20:57)
[2018-10-25] MEDS: TAMSULOSIN 0.4 MG CAP.ER.24H PO SCH (20:57)
--- NOTE | 2018-10-25 21:33 | PN ---
PROGRESS NOTE DATE OF SERVICE: 10/25/2018. REASON FOR FOLLOWUP: Proteus Mirabilis urinary tract infection. INTERVAL HISTORY: The patient is currently afebrile. Patient has been breathing comfortably. Denies having any chest pain, cough. No nausea, no vomiting. No abdominal pain. No diarrhea. PHYSICAL EXAMINATION: Blood pressure 157/78 with a pulse of 58, temperature 98.6. He is 98% on 3 L nasal cannula. General description is an elderly male lying in bed in no distress. Respiratory system: Unlabored breathing. Clear to auscultation anteriorly. Heart S1, S2. Regular rate and rhythm. Abdomen: Soft, no tenderness. LABS: Hemoglobin is 10.9, white count 5.5, BUN of 28, creatinine 1.06. DIAGNOSTIC IMPRESSION AND PLAN: Patient with Proteus mirabilis, urinary tract infection for which the patient is currently covered with Rocephin finishing therapy with oral antibiotics on discharge. Continue supportive care. MMODL / IJN: [id number] /
[2018-10-25] MEDS: SODIUM CHLORIDE 5% OPHTH OINT 3.5 GM TUBE BOTH EYES SCH (21:45)
[2018-10-26] MEDS: LEVOTHYROXINE 50 MCG TAB PO SCH (05:38)
[2018-10-26 06:48] LABS: Glucose,Whole Blood 151 mg/dL (75-99)
[2018-10-26] MEDS: PANTOPRAZOLE 40 MG/10 ML VIAL IVP SCH ×2 (08:16→20:31)
[2018-10-26] MEDS: ALLOPURINOL 100 MG TAB PO SCH ×2 (08:17→20:32)
[2018-10-26] MEDS: BACLOFEN 10 MG TAB PO SCH ×3 (08:17→20:32)
[2018-10-26] MEDS: MULTIVITAMINS, THERA 1 EACH TAB PO SCH ×2 (08:17→12:02)
[2018-10-26] MEDS: SERTRALINE 100 MG TAB PO SCH (08:17)
[2018-10-26] MEDS: CLOPIDOGREL 75 MG TAB PO SCH (08:17)
[2018-10-26] MEDS: CARVEDILOL 12.5 MG TAB PO SCH ×2 (08:17→17:44)
[2018-10-26] MEDS: metFORMIN 500 MG TAB PO SCH ×2 (08:17→20:32)
[2018-10-26] MEDS: FENOFIBRATE 160 MG TAB PO SCH (08:17)
[2018-10-26] MEDS: HEPARIN SODIUM,PORCINE 5,000 UNIT/ML 1 ML VIAL SQ SCH ×2 (08:17→20:32)
[2018-10-26] MEDS: LORATADINE 10 MG TAB PO SCH (08:17)
[2018-10-26] MEDS: HYDROcodone/APAP 5-325MG 1 EACH TAB PO PRN (08:18)
[2018-10-26] MEDS: INSULIN ASPART (NovoLOG) 100 UNIT/ML VIAL SQ SCH ×3 (08:18→17:44)
[2018-10-26] MEDS: amLODIPine 10 MG TAB PO SCH (08:18)
[2018-10-26] MEDS: FINASTERIDE 5 MG TAB PO SCH (08:18)
[2018-10-26] MEDS: carBAMazepine 200 MG TAB PO SCH ×3 (08:20→20:34)
[2018-10-26] MEDS: ZIPRASIDONE 20 MG CAP PO SCH ×3 (08:20→20:34)
[2018-10-26] MEDS: FLUTICASONE 50MCG/SPRAY NASAL 16GM EA NOSTRIL SCH ×2 (08:21→20:33)
[2018-10-26] MEDS: SODIUM CHLORIDE 0.9% 1,000 ML IV SCH (08:22)
[2018-10-26] MEDS: MICONAZOLE NITRATE TOPICAL SCH ×2 (08:32→20:33)
[2018-10-26] MEDS ORDERED: ERGOCALCIFEROL 50,000 UNIT CAP PO SCH (09:00)
[2018-10-26 09:21] LABS: Anisocytosis Slight; Basophils % (A) 0 %; Eosinophils # (A) 0.1 k/uL (0-0.7); Eosinophils % (A) 1 %; HCT 32.6 % (39.0-53.0); HGB 10.9 gm/dL (13.0-17.5); Hypochromasia Slight; Lymphocytes # (A) 1.1 k/uL (1.0-4.8); Lymphocytes % (A) 18 %; MCH 27.2 pg (25.0-35.0); MCHC 33.4 g/dL (31.0-37.0); MCV 81.4 fL (80.0-100.0); Mean Platelet Volume 8.3; Monocytes # (A) 0.2 k/uL (0-1.0); Monocytes % (A) 4 %; Neutrophils # (A) 4.4 k/uL (1.3-7.7); Neutrophils % (A) 75 %; Platelet Count 146 k/uL (150-450); Poikilocytosis Slight
[2018-10-26 09:42] LABS: African American GFR (CKD) >90 (>60 ml/min/1.73 sqM); Anion Gap 11 mmol/L; Blood Urea Nitrogen 28 mg/dL (9-20); Calcium 9.8 mg/dL (8.4-10.2); Carbon Dioxide 28 mmol/L (22-30); Chloride 100 mmol/L (98-107); Glucose 199 mg/dL (74-99); Potassium 4.3 mmol/L (3.5-5.1); Sodium 139 mmol/L (137-145)
[2018-10-26 10:34] LABS: Hemoglobin A1C 7.4 % (4.0-6.0)
[2018-10-26 11:16] LABS: Glucose,Whole Blood 143 mg/dL (75-99)
[2018-10-26] MEDS: THIAMINE 100 MG TAB PO SCH (12:02)
[2018-10-26] MEDS: FOLIC ACID 1 MG TAB PO SCH (12:02)
--- NOTE | 2018-10-26 12:56 | XR ---
EXAMINATION TYPE: XR abdomen 1V DATE OF EXAM: 10/26/2018 COMPARISON: NONE HISTORY: Nausea and vomiting TECHNIQUE: One view abdominal series FINDINGS: The osseous structures are intact. The bowel gas pattern is nonspecific. Postsurgical changes are no mario. There is arthropathy of the hips. Degenerative change of the spine. Rib deformity suggests previ ous trauma. IMPRESSION: 1. Nonspecific abdomen.
--- NOTE | 2018-10-26 15:24 | PN ---
PROGRESS NOTE DATE OF SERVICE: 10/26/2018 This is a 68-year-old gentleman admitted with multiple medical problems such as acute UTI with Proteus mirabilis, also complaining of some vomiting. No abdomen distention, no chest pain. No palpitations. No fever. X-ray done today showed some nonspecific findings. PHYSICAL EXAM: Alert and oriented x3, pulse 59, blood pressure 160/81, respiration 16, temperature 97.7, pulse ox 96% on 3 L. HEENT: Conjunctivae normal. NECK: No jugular venous distension. CARDIOVASCULAR: S1, S2, muffled. RESPIRATORY: Breath sounds diminished at the bases, a few scattered rhonchi, no crackles. ABDOMEN: Soft, slightly obese. Mild distention. Nontender. No guarding. No rigidity. NERVOUS SYSTEM: Higher functions as mentioned earlier, moves all 4 limbs, no focal deficits. SKIN: No ulcer, rash, bleeding. JOINTS: No active joint arthropathy. LABS: WBC is 6, hemoglobin is 10.9, sodium 130, potassium 4.3. Other labs are noted. ASSESSMENT: 1. Acute urinary tract infection with sepsis present on admission with Proteus mirabilis. 2. Atelectasis. 3. Generalized weakness and tiredness. 4. Abdominal pain, distention, vomiting, possible acute gastritis. 5. Tremors. 6. Status metabolic encephalopathy with possible acute sepsis, present on admission. 7. Dehydration on admission. 8. Gait dysfunction. 9. Diabetes mellitus type 2. 10.History of frequent urinary tract infection. 11.History of cerebrovascular accident. 12.History of gastroesophageal reflux disease. 13.Hypertension. 14.History of myocardial infarction. 15.History of pulmonary embolus. 16.History of sleep apnea. 17.History of hypothyroidism. 18.History of peripheral neuropathy. 19.History of gout. 20.Chronic pain. 21.History of degenerative joint disease. 22.History of Clostridium difficile colitis. 23.History of colon polyps. 24.History of bipolar, depression. 25.Posttraumatic stress disorder. 26.Obesity with body mass index of 37.4. RECOMMENDATION: Recommend continue with the current management and symptomatic treatment. At this time I recommend continue with antibiotics, continue with Protonix. I would also recommend antibiotics. Continue to monitor, if not feeling better then Surgical, Gastroenterology evaluation could be obtained. Further recommendations to follow. See orders for details. Otherwise, will continue PT, OT and possible ECF rehab. The patient is to [facility]. MMMINDI / DONALDON: [id number] / ADDIE
[2018-10-26 17:03] LABS: Glucose,Whole Blood 92 mg/dL (75-99)
--- NOTE | 2018-10-26 19:39 | PN ---
PROGRESS NOTE DATE OF SERVICE: 10/26/2018. REASON FOR FOLLOWUP: Proteus mirabilis urinary tract infection. INTERVAL HISTORY: The patient is currently afebrile. The patient has been breathing comfortably. The patient denies any chest pain or any cough. Complaining of some abdominal discomfort and nausea but no vomiting and no diarrhea. EXAM: Blood pressure 137/59 with a pulse of 56, temperature 98.2. He is 97% on 3 L nasal cannula. GENERAL DESCRIPTION is an elderly male lying in bed in no distress. RESPIRATORY SYSTEM: Unlabored breathing, clear to auscultation anteriorly. HEART S1, S2. Regular rate and rhythm. ABDOMEN: Soft, no tenderness. LABS: Hemoglobin is 10.1, white count 6.0, BUN of 28, creatinine 0.95. Abdominal x-rays, nonspecific abdomen. DIAGNOSTIC IMPRESSION AND PLAN: Patient with Proteus mirabilis urinary tract infection. Patient currently covered on Rocephin to continue while inpatient switching to oral Cipro on discharge to finish course of therapy. Continue supportive care. MMODL / IJN: [id number] /
[2018-10-26] MEDS: TAMSULOSIN 0.4 MG CAP.ER.24H PO SCH (20:32)
[2018-10-26] MEDS: PRAVASTATIN SODIUM 80 MG TAB PO SCH (20:32)
[2018-10-26] MEDS: SODIUM CHLORIDE 5% OPHTH OINT 3.5 GM TUBE BOTH EYES SCH (20:34)
[2018-10-26 21:33] LABS: Glucose,Whole Blood 81 mg/dL (75-99)
[2018-10-26] MEDS: INSULIN DETEMIR (LEVEMIR) 100 UNIT/ML SYR SQ SCH (22:18)
[2018-10-27] MEDS: LEVOTHYROXINE 50 MCG TAB PO SCH (05:43)
[2018-10-27] MEDS: SODIUM CHLORIDE 0.9% 1,000 ML IV SCH ×2 (05:44→15:05)
[2018-10-27 07:30] LABS: Glucose,Whole Blood 96 mg/dL (75-99)
[2018-10-27] MEDS: INSULIN ASPART (NovoLOG) 100 UNIT/ML VIAL SQ SCH ×3 (07:57→17:53)
[2018-10-27] MEDS: MULTIVITAMINS, THERA 1 EACH TAB PO SCH ×2 (07:58→07:59)
[2018-10-27] MEDS: FINASTERIDE 5 MG TAB PO SCH (07:58)
[2018-10-27] MEDS: SERTRALINE 100 MG TAB PO SCH (07:58)
[2018-10-27] MEDS: FOLIC ACID 1 MG TAB PO SCH (07:58)
[2018-10-27] MEDS: carBAMazepine 200 MG TAB PO SCH ×3 (07:58→21:57)
[2018-10-27] MEDS: metFORMIN 500 MG TAB PO SCH ×2 (07:58→21:57)
[2018-10-27] MEDS: BACLOFEN 10 MG TAB PO SCH ×3 (07:58→21:57)
[2018-10-27] MEDS: ZIPRASIDONE 20 MG CAP PO SCH ×3 (07:58→21:57)
[2018-10-27] MEDS: ALLOPURINOL 100 MG TAB PO SCH ×2 (07:58→21:57)
[2018-10-27] MEDS: HEPARIN SODIUM,PORCINE 5,000 UNIT/ML 1 ML VIAL SQ SCH ×2 (07:58→21:59)
[2018-10-27] MEDS: LORATADINE 10 MG TAB PO SCH (07:58)
[2018-10-27] MEDS: amLODIPine 10 MG TAB PO SCH (07:58)
[2018-10-27] MEDS: FENOFIBRATE 160 MG TAB PO SCH (07:59)
[2018-10-27] MEDS: FLUTICASONE 50MCG/SPRAY NASAL 16GM EA NOSTRIL SCH ×2 (07:59→22:43)
[2018-10-27] MEDS: THIAMINE 100 MG TAB PO SCH (07:59)
[2018-10-27] MEDS: MICONAZOLE NITRATE TOPICAL SCH ×2 (07:59→21:59)
[2018-10-27] MEDS: CARVEDILOL 12.5 MG TAB PO SCH ×2 (07:59→17:53)
[2018-10-27] MEDS: PANTOPRAZOLE 40 MG/10 ML VIAL IVP SCH ×2 (07:59→21:59)
[2018-10-27 10:46] LABS: Anisocytosis Slight; Basophils % (A) 0 %; Eosinophils # (A) 0.1 k/uL (0-0.7); Eosinophils % (A) 1 %; HCT 33.2 % (39.0-53.0); HGB 10.9 gm/dL (13.0-17.5); Lymphocytes # (A) 1.3 k/uL (1.0-4.8); Lymphocytes % (A) 21 %; MCH 26.9 pg (25.0-35.0); MCHC 32.7 g/dL (31.0-37.0); MCV 82.2 fL (80.0-100.0); Mean Platelet Volume 8.8; Monocytes # (A) 0.3 k/uL (0-1.0); Monocytes % (A) 5 %; Neutrophils # (A) 4.2 k/uL (1.3-7.7); Neutrophils % (A) 70 %; Platelet Count 186 k/uL (150-450); Poikilocytosis Slight; RBC 4.04 m/uL (4.30-5.90); WBC 6.1 k/uL (3.8-10.6)
[2018-10-27 11:14] LABS: Calcium 9.9 mg/dL (8.4-10.2); Potassium 4.4 mmol/L (3.5-5.1)
[2018-10-27 12:33] LABS: Glucose,Whole Blood 75 mg/dL (75-99)
--- NOTE | 2018-10-27 16:28 | PN ---
PROGRESS NOTE DATE OF SERVICE: 10/27/2018. REASON FOR FOLLOWUP: Proteus mirabilis urinary tract infection. INTERVAL HISTORY: The patient is currently afebrile. The patient denies having any chest pain, shortness of breath or cough. No abdominal pain or any diarrhea. PHYSICAL EXAMINATION: His blood pressure is 177/80 with a pulse of 63, temperature 98. He is 96% on 2 L nasal cannula. General description is an elderly male lying in bed in no distress. RESPIRATORY SYSTEM: Unlabored breathing. Clear to auscultation anteriorly. HEART: S1, S2. Regular rate and rhythm. ABDOMEN: Soft. No tenderness. LABS: Hemoglobin is 10.9, white count 6.1 with BUN of 35, creatinine 0.99. DIAGNOSTIC IMPRESSION AND PLAN: Patient with Proteus mirabilis urinary tract infection, has currently received about a week of Rocephin additional course of oral Cipro on discharge to finish his course of therapy. Continue with supportive care. MMODL / IJN: [id number] /
[2018-10-27 17:16] LABS: Glucose,Whole Blood 108 mg/dL (75-99)
--- NOTE | 2018-10-27 19:24 | P.PN ---
Subjective Progress Note Date: 10/27/18 Principal diagnosis: Acute metabolic encephalopathy improved Acute urinary tract infection Patient is a 68-year-old male with a known history of multiple medical problems as discussed above was admitted to the hospital due to acute urinary tract infection. Urine culture showed Proteus mirabilis. Patient is being continued on ceftriaxone while in the hospital. Otherwise patient is also complaining of abdominal distention which is improved now.. Abdominal x-ray showed nonspecific findings. Chest x-ray showed bibasilar atelectasis. Patient advised with a deep breathing exercises. 10/27/2018 Patient denied any, soft chest pain or shortness of breath. Tolerating oral diet. Nausea improved. Patient did have bowel movement last night. No fever no chills. Patient is on Altman catheter currently. We will do trial void before discharge. Currently on IV antibiotics in the form of ceftriaxone. ID is on board. No other acute overnight issues. And spit discharge next 24 hours to rehab. Patient is alert, oriented 3 now Current medications reviewed. Active Medications Generic Name Dose Route Start Last Admin Trade Name Timoteoq PRN Reason Stop Dose Admin Acetaminophen 650 mg 10/21/18 22:39 Tylenol Tab PO Q6HR PRN Mild Pain or Fever > 100.5 Hydrocodone Bitart/Acetaminophen 1 each 10/22/18 00:33 10/26/18 08:18 Felton 5-325 PO 1 each Q6HR PRN Administration Pain Albuterol Sulfate 2.5 mg 10/22/18 00:26 Ventolin Nebulized INHALATION RT-Q4H PRN Shortness Of Breath Allopurinol 100 mg 10/22/18 09:00 10/27/18 07:58 Zyloprim PO 100 mg BID ALONSO Administration Alprazolam 0.25 mg 10/22/18 00:33 10/27/18 00:33 Xanax PO 0.25 mg TID PRN Administration Anxiety Amlodipine Besylate 10 mg 10/22/18 09:00 10/27/18 07:58 Norvasc PO 10 mg DAILY ALONSO Administration Baclofen 20 mg 10/22/18 21:00 10/26/18 20:32 Lioresal PO 20 mg HS ALONSO Administration Baclofen 10 mg 10/22/18 08:00 10/27/18 13:08 Lioresal PO 10 mg BID@0800,1300 ALONSO Administration Carbamazepine 400 mg 10/22/18 09:00 10/27/18 15:06 Tegretol PO 400 mg TID ALONSO Administration Carvedilol 12.5 mg 10/22/18 07:30 10/27/18 17:53 Coreg PO 12.5 mg BID-W/MEALS ALONSO Administration Clonazepam 0.5 mg 10/22/18 00:26 Klonopin PO TID PRN ANXIETY Ergocalciferol 100,000 unit 10/26/18 09:00 10/26/18 08:20 Vitamin D2 PO 100,000 unit Mo@0900 ALONSO Administration Fenofibrate 160 mg 10/22/18 09:00 10/27/18 07:59 Lofibra PO 160 mg DAILY ALONSO Administration Finasteride 5 mg 10/22/18 09:00 10/27/18 07:58 Proscar PO 5 mg DAILY [facility] Administration Fluticasone Propionate 1 spray 10/22/18 09:00 10/27/18 07:59 Flonase Nasal [place] EA NOSTRIL 1 spray BID ALONSO Administration Folic Acid 1 mg 10/22/18 12:00 10/27/18 07:58 Folic Acid PO 1 mg DAILY@1200 [facility] Administration Glucose 4 gm 10/22/18 00:26 Glucose Chew Tab PO TID PRN LOW BLOOD SUGAR Heparin Sodium (Porcine) 5,000 unit 10/22/18 09:00 10/27/18 07:58 Heparin SQ 5,000 unit Q12HR [facility] Administration Ceftriaxone Sodium 1 gm/ 50 mls @ 100 mls/hr 10/22/18 21:00 10/26/18 20:32 Sodium Chloride IVPB 100 mls/hr Q24H ALONSO Administration Sodium Chloride 1,000 mls @ 75 mls/hr 10/22/18 00:45 10/27/18 15:05 Saline 0.9% IV Not Given .[id number] [facility] Insulin Aspart 40 unit 10/22/18 07:30 10/27/18 17:53 Novolog SQ 20 unit AC-TID [facility] Administration Insulin Detemir 120 unit 10/26/18 21:30 10/26/18 22:18 Levemir SQ 120 unit HS [facility] Administration Levothyroxine Sodium 50 mcg 10/22/18 06:30 10/27/18 05:43 Synthroid PO 50 mcg DAILY@0630 [facility] Administration Loratadine 10 mg 10/22/18 09:00 10/27/18 07:58 Claritin PO 10 mg DAILY [facility] Administration Metformin HCl 1,000 mg 10/22/18 09:00 10/27/18 07:58 Glucophage PO 1,000 mg BID ALONSO Administration Metoclopramide HCl 5 mg 10/25/18 12:30 10/26/18 10:18 Reglan IVP 5 mg Q6HR PRN Administration Nausea Multivitamins 1 each 10/22/18 12:00 10/27/18 07:59 Theragran PO Not Given DAILY@1200 ALONSO Naloxone HCl 0.2 mg 10/21/18 22:39 Narcan IV Q2M PRN Opioid Reversal Miconazole Nitrate [ 1 applic 10/22/18 09:00 10/27/18 07:59 Lotrimin Af Powder] TOPICAL Not Given BID ALONSO Ondansetron HCl 4 mg 10/23/18 20:22 10/25/18 10:30 Zofran IVP 4 mg Q6HR PRN Administration Nausea And Vomiting Pantoprazole Sodium 40 mg 10/25/18 21:00 10/27/18 07:59 Protonix IVP 40 mg BID ALONSO Administration Pravastatin Sodium 80 mg 10/22/18 21:00 10/26/18 20:32 Pravachol PO 80 mg HS [facility]ONSO Administration Pregabalin 100 mg 10/22/18 00:26 Lyrica PO TID PRN NERVE PAIN Sertraline HCl 200 mg 10/22/18 09:00 10/27/18 07:58 Zoloft PO 200 mg DAILY ALONSO Administration Sodium Chloride 1 applic 10/22/18 21:00 10/26/18 20:34 Celeste 128 BOTH EYES Not Given HS ALONSO Tamsulosin HCl 0.8 mg 10/22/18 21:00 10/26/18 20:32 Flomax PO 0.8 mg HS ALONSO Administration Thiamine HCl 100 mg 10/22/18 12:00 10/27/18 07:59 Vitamin B-1 PO 100 mg DAILY@1200 [facility] Administration Ziprasidone 20 mg 10/22/18 09:00 10/27/18 15:06 Geodon PO 20 mg TID ALONSO Administration Objective - Vital Signs Vital signs: Vital Signs Temp 97.6 F 10/27/18 14:17 Pulse 59 L 10/27/18 14:17 Resp 20 10/27/18 14:17 BP 161/83 10/27/18 14:17 Pulse Ox 96 10/27/18 14:17 Intake & Output 10/27/18 10/27/18 10/28/18 06:59 18:59 06:59 Intake Total 200 Output Total 525 800 Balance -525 -600 Intake: Oral 200 Output: Urine 525 800 Other: Voiding Method Incontinent Incontinent # Voids 1 - Exam PHYSICAL EXAMINATION: Patient is lying in the bed comfortably, no acute distress, awake alert and oriented.. HEENT: Normocephalic. Neck is supple. Pupils reactive. Nostrils clear. Oral cavity is moist. Ears reveal no drainage. Neck reveals no JVD, carotid bruits, or thyromegaly. CHEST EXAMINATION: Trachea is central. Symmetrical expansion. Lung mukherjee clear to auscultation and percussion. CARDIAC: Normal S1, S2 with no gallops. No murmurs ABDOMEN: Soft. Bowel sounds normal. No organomegaly. No abdominal bruits. Extremities: reveal no edema. No clubbing or cyanosis Neurologically awake, alert, oriented x3 with well-coordinated movements. Able to move all his extremities while in bed. Skin: No rash or skin lesions. Psychiatric: Coperative. Nonsuicidal Musculoskeletal: No joint swelling or deformity. Normal range of motion. - Labs CBC & Chem 7: 10/27/18 10:31 10/27/18 10:31 Labs: Abnormal Lab Results - Last 24 Hours (Table) 10/27/18 10/27/18 10/27/18 Range/Units 10:31 10:31 17:14 RBC 4.04 L (4.30-5.90) m/uL Hgb 10.9 L (13.0-17.5) gm/dL Hct 33.2 L (39.0-53.0) % RDW 16.0 H (11.5-15.5) % BUN 35 H (9-20) mg/dL POC Glucose (mg/dL) 108 H (75-99) mg/dL Microbiology - Last 24 Hours (Table) 10/21/18 19:00 Blood Culture - Preliminary Blood No Growth after 120 hours 10/25/18 17:18 Blood Culture - Preliminary Blood No Growth after 24 hours 10/25/18 18:29 Urine Culture - Final Urine,Catheterized Assessment and Plan Assessment: Acute urinary tract infection with sepsis secondary to Proteus mirabilis Bibasilar atelectasis. Generalized weakness and medical debility Abdominal pain with possible gastritis acute improved now Tremors Acute metabolic encephalopathy due to infection present on admission Dehydration and volume depletion Gait dysfunction Diabetes type 2 insulin-dependent History of recurrent urinary tract infection History of CVA GERD Hypertension History of NV History of pulmonary embolism Obstructive sleep apnea on CPAP at home Hypothyroidism Peripheral neuropathy diabetic Gout Chronic pain syndrome Degenerative joint disease History of CVA infection Colon polyps Bipolar and depression PTSD Obesity with BMI 37.4 DVT prophylaxis with heparin Plan: Patient will be continued on antibiotics in the form of ceftriaxone. Continue the physical therapy. Monitor blood sugars. Continue with PPI. Continue the current management and follow closely. Further recommendations based on the clinical course. And his be discharged to rehab in next 24 hours. Time with Patient: Greater than 30
[2018-10-27 20:32] LABS: Glucose,Whole Blood 152 mg/dL (75-99)
[2018-10-27] MEDS: TAMSULOSIN 0.4 MG CAP.ER.24H PO SCH (21:57)
[2018-10-27] MEDS: PRAVASTATIN SODIUM 80 MG TAB PO SCH (21:57)
[2018-10-27] MEDS: SODIUM CHLORIDE 5% OPHTH OINT 3.5 GM TUBE BOTH EYES SCH (21:58)
[2018-10-28 00:21] LABS: Glucose,Whole Blood 145 mg/dL (75-99)
[2018-10-28 00:29] VITALS: RESP 18
[2018-10-28] MEDS: INSULIN DETEMIR (LEVEMIR) 100 UNIT/ML SYR SQ SCH (00:52)
[2018-10-28 02:59] LABS: Glucose,Whole Blood 155 mg/dL (75-99)
[2018-10-28] MEDS: SODIUM CHLORIDE 0.9% 1,000 ML IV SCH (04:44)
[2018-10-28] MEDS: LEVOTHYROXINE 50 MCG TAB PO SCH (06:11)
[2018-10-28 06:28] VITALS: BP 170/81; PULSE 59; TEMP 97.3
[2018-10-28 07:12] LABS: Glucose,Whole Blood 178 mg/dL (75-99)
[2018-10-28] MEDS: PANTOPRAZOLE 40 MG/10 ML VIAL IVP SCH (08:06)
[2018-10-28] MEDS: metFORMIN 500 MG TAB PO SCH (08:08)
[2018-10-28] MEDS: INSULIN ASPART (NovoLOG) 100 UNIT/ML VIAL SQ SCH (08:08)
[2018-10-28] MEDS: HEPARIN SODIUM,PORCINE 5,000 UNIT/ML 1 ML VIAL SQ SCH (08:09)
[2018-10-28] MEDS: CARVEDILOL 12.5 MG TAB PO SCH (08:09)
[2018-10-28] MEDS: SERTRALINE 100 MG TAB PO SCH (08:09)
[2018-10-28] MEDS: FLUTICASONE 50MCG/SPRAY NASAL 16GM EA NOSTRIL SCH (08:09)
[2018-10-28] MEDS: FINASTERIDE 5 MG TAB PO SCH (08:09)
[2018-10-28] MEDS: amLODIPine 10 MG TAB PO SCH (08:09)
[2018-10-28] MEDS: THIAMINE 100 MG TAB PO SCH (08:09)
[2018-10-28] MEDS: BACLOFEN 10 MG TAB PO SCH (08:09)
[2018-10-28] MEDS: FOLIC ACID 1 MG TAB PO SCH (08:09)
[2018-10-28] MEDS: carBAMazepine 200 MG TAB PO SCH (08:09)
[2018-10-28] MEDS: ZIPRASIDONE 20 MG CAP PO SCH (08:09)
[2018-10-28] MEDS: MULTIVITAMINS, THERA 1 EACH TAB PO SCH (08:09)
[2018-10-28] MEDS: ALLOPURINOL 100 MG TAB PO SCH (08:09)
[2018-10-28] MEDS: LORATADINE 10 MG TAB PO SCH (08:09)
[2018-10-28] MEDS: FENOFIBRATE 160 MG TAB PO SCH (08:09)
[2018-10-28] MEDS: MICONAZOLE NITRATE TOPICAL SCH (08:10)
--- NOTE | 2018-10-28 10:23 | PN ---
PROGRESS NOTE DATE OF SERVICE: 10/28/2018 REASON FOR FOLLOWUP: Proteus mirabilis UTI. INTERVAL HISTORY: The patient is currently afebrile. Patient has been breathing comfortably. Denies having any chest pain or any cough. No abdominal pain or any diarrhea. PHYSICAL EXAMINATION: On examination, blood pressure is 170/81 with a pulse of 59, temperature 97.3. He is 97% on 2 L nasal cannula. General description is an elderly male lying in bed in no distress. RESPIRATORY SYSTEM: Unlabored breathing, clear to auscultation anteriorly. HEART: S1, S2. Regular rate and rhythm. ABDOMEN: Soft, no tenderness. LABS: No new labs have been obtained today. DIAGNOSTIC IMPRESSION AND PLAN: Patient with Proteus mirabilis urinary tract infection. The patient has been showing overall clinical improvement. The patient will be given a short course of oral Ceftin b.i.d. for about 3 to 5 days to finish course of therapy. Continue with supportive care. MMODL / IJN: [id number] /
--- NOTE | 2018-10-28 10:35 | P.DS ---
Providers Date of admission: 10/23/18 15:26 Expected date of discharge: 10/28/18 Attending physician: Kassie Das Consults: 10/22/18 00:33 Consult Physician Routine Consulting Provider: Chiki Blake Consult Reason/Comments: uti Do you want consulting provider notified?: Yes Primary care physician: [facility] Hospital Course: Discharge diagnosis Acute urinary tract infection with sepsis secondary to Proteus mirabilis Bibasilar atelectasis. Generalized weakness and medical debility Abdominal pain with possible gastritis acute improved now Tremors Acute metabolic encephalopathy due to infection present on admission Dehydration and volume depletion Gait dysfunction Diabetes type 2 insulin-dependent History of recurrent urinary tract infection History of CVA GERD Hypertension History of OR History of pulmonary embolism Obstructive sleep apnea on CPAP at home Hypothyroidism Peripheral neuropathy diabetic Gout Chronic pain syndrome Degenerative joint disease History of CVA infection Colon polyps Bipolar and depression PTSD Obesity with BMI 37.4 DVT prophylaxis with heparin Hospital course Patient is a 68-year-old male with a known history of multiple medical problems as discussed above was admitted to the hospital due to acute urinary tract infection. Urine culture showed Proteus mirabilis. Patient is being continued on ceftriaxone while in the hospital. Antibiotic will be changed to ciprofloxacin to complete the course of antibiotics as an outpatient. Otherwise patient is also complaining of abdominal distention. Abdominal x-ray showed nonspecific findings. Chest x-ray showed bibasilar atelectasis. Patient advised with a deep breathing exercises. Patient was seen by ID. Patient is ready to be discharged to rehab for PT OT and medications. Otherwise patient is hemodynamically stable to be discharged. Altman catheter will be removed prior to discharge. PHYSICAL EXAMINATION: Patient is lying in the bed comfortably, no acute distress, awake alert and oriented.. HEENT: Normocephalic. Neck is supple. Pupils reactive. Nostrils clear. Oral cavity is moist. Ears reveal no drainage. Neck reveals no JVD, carotid bruits, or thyromegaly. CHEST EXAMINATION: Trachea is central. Symmetrical expansion. Lung mukherjee clear to auscultation and percussion. CARDIAC: Normal S1, S2 with no gallops. No murmurs ABDOMEN: Soft. Bowel sounds normal. No organomegaly. No abdominal bruits. Extremities: reveal no edema. No clubbing or cyanosis Neurologically awake, alert, oriented x3 with well-coordinated movements. Able to move all his extremities while in bed. Skin: No rash or skin lesions. Psychiatric: Coperative. Nonsuicidal Musculoskeletal: No joint swelling or deformity. Normal range of motion. Vital Signs 10/27/18 14:17 Temperature 97.6 F Pulse Rate [ 59 L Pulse Oximetery ] Respiratory 20 Rate Blood Pressure 161/83 [Left Arm] O2 Sat by Pulse 96 Oximetry Total time taken greater than 35 minutes including 18 minutes for counseling and coordination of care. Patient Condition at Discharge: Good Plan - Discharge Summary Discharge Rx Participant: No New Discharge Prescriptions: New Ciprofloxacin HCl [Cipro] 500 mg PO Q12H 5 Days #10 tab Continue Levothyroxine Sodium [Synthroid] 50 mcg PO DAILY carBAMazepine [TEGretol] 400 mg PO TID Finasteride [Proscar] 5 mg PO DAILY Ziprasidone [Geodon] 20 mg PO TID Sertraline [Zoloft] 200 mg PO DAILY Allopurinol [Zyloprim] 100 mg PO BID Insulin Aspart [NovoLOG] 40 units SQ AC-TID Ergocalciferol [Vitamin D2 (DRISDOL)] 100,000 unit PO MO Tamsulosin [Flomax] 0.8 mg PO HS Pravastatin Sodium [Pravachol] 80 mg PO HS [place]-3 Fatty Acids/Fish Oil [Fish Oil 1,000 mg Softgel] 2 cap PO BID Clopidogrel Bisulfate [Plavix] 75 mg PO DAILY #20 tab Multivitamins, Thera [Multivitamin (formulary)] 1 tab PO DAILY Gemfibrozil [Lopid] 600 mg PO BID Ranitidine HCl [Zantac] 300 mg PO HS Carboxymethylcellulose Sodium [Restore Plus] 1 drop BOTH EYES QID Dextrose Chew [Glucose Chew Tab] 4 gm PO TID PRN PRN Reason: LOW BLOOD SUGAR metFORMIN HCL 1,000 mg PO BID Albuterol Sulfate [Proair Hfa] 2 puff INHALATION RT-Q4H PRN PRN Reason: Shortness Of Breath amLODIPine [Norvasc] 10 mg PO DAILY Carvedilol [Coreg] 12.5 mg PO BID Diclofenac Sodium Gel [Voltaren Gel] 1 applic TOPICAL BID PRN PRN Reason: Pain Fluticasone Nasal [place] [Flonase Nasal [place]] 1 spray EA NOSTRIL BID INSULIN ASPART (NovoLOG) [NovoLOG (formulary)] See Protocol SQ AC-TID Insulin Glargine,Hum.rec.anlog [Lantus Solostar] 120 unit SQ HS Miconazole Nitrate [Lotrimin AF Powder] 1 applic TOPICAL BID Sodium Chloride 5% Ophth Oint [[place] 128] 1 applic BOTH EYES HS clonazePAM [KlonoPIN] 0.5 mg PO TID PRN PRN Reason: ANXIETY Pregabalin [Lyrica] 100 mg PO TID PRN PRN Reason: NERVE PAIN Baclofen [Lioresal] 20 mg PO HS Baclofen [Lioresal] 10 mg PO BID@0800,1300 Loratadine [Claritin] 10 mg PO DAILY Pantoprazole Sodium [Protonix] 40 mg PO BID Discharge Medication List Allopurinol [Zyloprim] 100 mg PO BID 12/02/14 [History] Ergocalciferol [Vitamin D2 (DRISDOL)] 100,000 unit PO MO 12/02/14 [History] Finasteride [Proscar] 5 mg PO DAILY 12/02/14 [History] Insulin Aspart [NovoLOG] 40 units SQ AC-TID 12/02/14 [History] Levothyroxine Sodium [Synthroid] 50 mcg PO DAILY 12/02/14 [History] [place]-3 Fatty Acids/Fish Oil [Fish Oil 1,000 mg Softgel] 2 cap PO BID 12/02/14 [History] Pravastatin Sodium [Pravachol] 80 mg PO HS 12/02/14 [History] Sertraline [Zoloft] 200 mg PO DAILY 12/02/14 [History] Tamsulosin [Flomax] 0.8 mg PO HS 12/02/14 [History] Ziprasidone [Geodon] 20 mg PO TID 12/02/14 [History] carBAMazepine [TEGretol] 400 mg PO TID 12/02/14 [History] Clopidogrel Bisulfate [Plavix] 75 mg PO DAILY #20 tab 10/01/15 [Rx] Gemfibrozil [Lopid] 600 mg PO BID 12/21/16 [History] Multivitamins, Thera [Multivitamin (formulary)] 1 tab PO DAILY 12/21/16 [History] Ranitidine HCl [Zantac] 300 mg PO HS 07/01/17 [History] Carboxymethylcellulose Sodium [Restore Plus] 1 drop BOTH EYES QID 03/06/18 [History] Dextrose Chew [Glucose Chew Tab] 4 gm PO TID PRN 03/06/18 [History] metFORMIN HCL 1,000 mg PO BID 03/06/18 [History] Albuterol Sulfate [Proair Hfa] 2 puff INHALATION RT-Q4H PRN 08/20/18 [History] Carvedilol [Coreg] 12.5 mg PO BID 08/20/18 [History] Diclofenac Sodium Gel [Voltaren Gel] 1 applic TOPICAL BID PRN 08/20/18 [History] Fluticasone Nasal [place] [Flonase Nasal [place]] 1 spray EA NOSTRIL BID 08/20/18 [History] INSULIN ASPART (NovoLOG) [NovoLOG (formulary)] See Protocol SQ AC-TID 08/20/18 [History] Insulin Glargine,Hum.rec.anlog [Lantus Solostar] 120 unit SQ HS 08/20/18 [History] Miconazole Nitrate [Lotrimin AF Powder] 1 applic TOPICAL BID 08/20/18 [History] Sodium Chloride 5% Ophth Oint [Celeste 128] 1 applic BOTH EYES HS 08/20/18 [History] amLODIPine [Norvasc] 10 mg PO DAILY 08/20/18 [History] Pregabalin [Lyrica] 100 mg PO TID PRN 09/18/18 [History] clonazePAM [KlonoPIN] 0.5 mg PO TID PRN 09/18/18 [History] Baclofen [Lioresal] 10 mg PO BID@0800,1300 10/21/18 [History] Baclofen [Lioresal] 20 mg PO HS 10/21/18 [History] Loratadine [Claritin] 10 mg PO DAILY 10/21/18 [History] Pantoprazole Sodium [Protonix] 40 mg PO BID 10/21/18 [History] Ciprofloxacin HCl [Cipro] 500 mg PO Q12H 5 Days #10 tab 10/27/18 [Rx] Follow up Appointment(s)/Referral(s): [facility],Clinic [Primary Care Provider] - 1-2 days Discharge Disposition: TRANSFER TO [facility]
== END 2018-10-28 11:34 | DRG 871 ==
LOC: EC 18:45 → 4MS4W 22:54 → 4SSUR 10-22 18:49 → OBSVTOIN 10-23 15:26 → 4MS4W 10-26 15:27
PROVIDERS: ADMIT Hospitalist; ATTEND Hospitalist
DX: A41.59 Other Gram-negative sepsis (principal); G93.41 Metabolic encephalopathy; F31.30 Bipolar disorder, current episode depressed, mild or moderate severity, unspecified; I69.954 Hemiplegia and hemiparesis following unspecified cerebrovascular disease affecting left non-dominant side; I69.951 Hemiplegia and hemiparesis following unspecified cerebrovascular disease affecting right dominant side; J98.11 Atelectasis; N39.0 Urinary tract infection, site not specified; R65.20 Severe sepsis without septic shock; E11.42 Type 2 diabetes mellitus with diabetic polyneuropathy; E66.01 Morbid (severe) obesity due to excess calories; I11.9 Hypertensive heart disease without heart failure; E86.0 Dehydration; E03.9 Hypothyroidism, unspecified; F43.10 Post-traumatic stress disorder, unspecified; G47.33 Obstructive sleep apnea (adult) (pediatric); G89.4 Chronic pain syndrome; I25.2 Old myocardial infarction; K21.9 Gastro-esophageal reflux disease without esophagitis; M10.9 Gout, unspecified; M19.90 Unspecified osteoarthritis, unspecified site; N40.0 Benign prostatic hyperplasia without lower urinary tract symptoms; R29.6 Repeated falls; M54.9 Dorsalgia, unspecified; R26.9 Unspecified abnormalities of gait and mobility; I45.10 Unspecified right bundle-branch block; R25.1 Tremor, unspecified; K29.00 Acute gastritis without bleeding; E86.9 Volume depletion, unspecified; Z68.37 Body mass index [BMI] 37.0-37.9, adult; Z86.010 Personal history of colon polyps; Z86.711 Personal history of pulmonary embolism; Z86.718 Personal history of other venous thrombosis and embolism; Z87.440 Personal history of urinary (tract) infections; Z86.19 Personal history of other infectious and parasitic diseases; Z79.02 Long term (current) use of antithrombotics/antiplatelets; Z79.4 Long term (current) use of insulin; Z79.890 Hormone replacement therapy; Z79.899 Other long term (current) drug therapy; Z88.6 Allergy status to analgesic agent; Z88.8 Allergy status to other drugs, medicaments and biological substances; Z80.52 Family history of malignant neoplasm of bladder; Z80.1 Family history of malignant neoplasm of trachea, bronchus and lung
CPT/HCPCS: 36415; 51701; 71045; 74018; 80048; 80053; 81001; 83036; 83605; 85025; 85610; 85730; 87040; 87077; 87086; 87186; 93005; 96365; 99284

== ENCOUNTER 2019-01-03 18:05 | Inpatient (IN) | payer OTHER, MEDICARE ==
[2019-01-03] MEDS ORDERED: LIDOCAINE URO-JET JELLY 2% 5 ML KIT URETHRAL ONE (18:23)
--- NOTE | 2019-01-03 18:38 | ED ---
Male Urogenital HPI - General Chief complaint: Urogenital Stated complaint: poss UTI, weakness Time Seen by Provider: 01/03/19 18:21 Source: patient, EMS Mode of arrival: EMS Limitations: no limitations - History of Present Illness Initial comments: 68-year-old male presenting for possible urinary tract infection. Patient has extensive packets medical history including recurrent urinary tract infections, DMII, HTN, [place], PE, previous CVA, abdominal hernia. Patient is accompanied by his , history was obtained from both and patient. Patient states that he has had pain with urination for the past 1-2 days. As well as increased frequency of urination. Mother says that he has seemed weak especially when changing his. She states that he has had increasing incontinence. She states this usually happens when he has a urinary tract infection she states that he has had 19 and total. She denies any specific focal neurological deficits, stat ing patient is at baseline aside from generalized weakness. Patinet also states that today he was experiencing blood in his urine. Patient denies constipation, diarrhea, fever, flu like symptoms, headache, chest pain, SOB, dizziness, nausea, vomiting, testicular pain/swelling. Remaining ROS (-)> upon arrival patient appears well there is no signs of acute distress. - Related Data Home Medications Medication Instructions Recorded Confirmed Allopurinol [Zyloprim] 100 mg PO BID 12/02/14 10/21/18 Ergocalciferol [Vitamin D2 100,000 unit PO MO 12/02/14 10/21/18 (DRISDOL)] Finasteride [Proscar] 5 mg PO DAILY 12/02/14 10/21/18 Insulin Aspart [NovoLOG] 40 units SQ AC-TID 12/02/14 10/21/18 Levothyroxine Sodium [Synthroid] 50 mcg PO DAILY 12/02/14 10/21/18 [place]-3 Fatty Acids/Fish Oil [Fish 2 cap PO BID 12/02/14 10/21/18 Oil 1,000 mg Softgel] Pravastatin Sodium [Pravachol] 80 mg PO HS 12/02/14 10/21/18 Sertraline [Zoloft] 200 mg PO DAILY 12/02/14 10/21/18 Tamsulosin [Flomax] 0.8 mg PO HS 12/02/14 10/21/18 Ziprasidone [Geodon] 20 mg PO TID 12/02/14 10/21/18 carBAMazepine [TEGretol] 400 mg PO TID 12/02/14 10/21/18 Gemfibrozil [Lopid] 600 mg PO BID 12/21/16 10/21/18 Multivitamins, Thera [Multivitamin 1 tab PO DAILY 12/21/16 10/21/18 (formulary)] Ranitidine HCl [Zantac] 300 mg PO HS 07/01/17 10/21/18 Carboxymethylcellulose Sodium 1 drop BOTH EYES QID 03/06/18 10/21/18 [Restore Plus] Dextrose Chew [Glucose Chew Tab] 4 gm PO TID PRN 03/06/18 10/21/18 metFORMIN HCL 1,000 mg PO BID 03/06/18 10/21/18 Albuterol Sulfate [Proair Hfa] 2 puff INHALATION RT-Q4H PRN 08/20/18 10/21/18 Carvedilol [Coreg] 12.5 mg PO BID 08/20/18 10/21/18 Diclofenac Sodium Gel [Voltaren 1 applic TOPICAL BID PRN 08/20/18 10/21/18 Gel] Fluticasone Nasal [place] [Flonase 1 spray EA NOSTRIL BID 08/20/18 10/21/18 Nasal [place]] INSULIN ASPART (NovoLOG) [NovoLOG See Protocol SQ AC-TID 08/20/18 10/21/18 (formulary)] Insulin Glargine,Hum.rec.anlog 120 unit SQ HS 08/20/18 10/21/18 [Lantus Solostar] Miconazole Nitrate [Lotrimin AF 1 applic TOPICAL BID 08/20/18 10/21/18 Powder] Sodium Chloride 5% Ophth Oint 1 applic BOTH EYES HS 08/20/18 10/21/18 [Celeste 128] amLODIPine [Norvasc] 10 mg PO DAILY 08/20/18 10/21/18 Pregabalin [Lyrica] 100 mg PO TID PRN 09/18/18 10/21/18 clonazePAM [KlonoPIN] 0.5 mg PO TID PRN 09/18/18 10/21/18 Baclofen [Lioresal] 10 mg PO BID@0800,1300 10/21/18 10/21/18 Baclofen [Lioresal] 20 mg PO HS 10/21/18 10/21/18 Loratadine [Claritin] 10 mg PO DAILY 10/21/18 10/21/18 Pantoprazole Sodium [Protonix] 40 mg PO BID 10/21/18 10/21/18 Previous Rx's Medication Instructions Recorded Clopidogrel Bisulfate [Plavix] 75 mg PO DAILY #20 tab 10/01/15 Ciprofloxacin HCl [Cipro] 500 mg PO Q12H 5 Days #10 tab 10/27/18 Allergies Allergy/AdvReac Type Severity Reaction Status Date / Time aspirin Allergy ABDOMINAL Verified 01/03/19 18:17 DISCOMFORT etodolac [From Lodine] Allergy Unknown Verified 01/03/19 18:17 oxybutynin Allergy Unknown Verified 01/03/19 18:17 Review of Systems ROS Statement: Those systems with pertinent positive or pertinent negative responses have been documented in the HPI. ROS Other: All systems not noted in ROS Statement are negative. Past Medical History Past Medical History: CVA/TIA, Diabetes Mellitus, Deep Vein Thrombosis (DVT), GERD/Reflux, Hypertension, Myocardial Infarction ([place]), Prostate Disorder, Pulmonary Embolus (PE), Sleep Apnea/CPAP/BIPAP, Thyroid Disorder Additional Past Medical History / Comment(s): Morbid obesity, obstructive sleep apnea uses CPAP-uses O2 at 5 L during night with cpap,SOB,history of peripheral neuropathy severe associated related to diabetes mellitus, gait dysfunction and frequent falls-uses w/c-able to stand to transfer, chronic back pain, gout, BPH, TIA/CVA-loyda arm and leg weakness, previous history of C. diff colitis back in 2010,hypothyroidism,colon polyps Last Myocardial Infarction Date:: 2010 History of Any Multi-Drug Resistant Organisms: None Reported Date of last positivie culture/infection: None MDRO Source:: None Past Surgical History: Hernia Repair Additional Past Surgical History / Comment(s): hiatal hernia repair x 2, umbilical hernia repair,2nd digit rt hand amputated Past Anesthesia/Blood Transfusion Reactions: No Reported Reaction Past Psychological History: Bipolar, Depression, PTSD Smoking Status: Never smoker Past Alcohol Use History: None Reported Past Drug Use History: None Reported - Past Family History Father Family Medical History: Cancer Additional Family Medical History / Comment(s): lung Mother Family Medical History: Cancer Additional Family Medical History / Comment(s): bladder General Exam - General Exam Comments Initial Comments: General: The patient is awake and alert, in no distress Eye: +3 mm pupils are equal, round and reactive to light, extra-ocular movements are intact. No nystagmus. There is normal conjunctiva bilaterally. No signs of icterus. Ears, nose, mouth and throat: There are moist mucous membranes and no oral lesions. Neck: The neck is supple, there is no tenderness or JVD. Cardiovascular: There is a regular rate and rhythm. No murmur, rub or gallop is appreciated. Respiratory: Lungs are clear to auscultation, respirations are non-labored, breath sounds are equal. No wheezes, stridor, rales, or rhonchi. Gastrointestinal: Upon inspection there appears to be a large incisional hernia of the anteior abdomen, there is a very large scar vertical/midline. Hernia is soft and reducible. Soft, non-distended, non-tender abdomen without masses or organomegaly noted. There is no rebound or guarding present. No CVA tenderness. Bowel sounds are unremarkable. Scrotum, has an area of excoriation. Musculoskeletal: Normal ROM, no tenderness. Strength 5/5 of the UE b/l, decreased strenght of the LE b/l (baseline per ). Sensation intact. Radial and DP pulses equal bilaterally 2+. Neurological: A&O x 3. CN II-XII intact grossly, There are no obvious motor or sensory deficits. Coordination appears grossly intact. Speech is normal. Skin: Skin is warm and dry and no rashes or lesions are noted. Round areas of bruising over anterior abdomen. Psychiatric: Cooperative Limitations: no limitations Course Vital Signs 01/03/19 18:18 Temperature 98.9 F Pulse Rate 61 Respiratory 18 Rate Blood Pressure 159/76 O2 Sat by Pulse 100 Oximetry Medical Decision Making - Medical Decision Making 68-year-old male presenting for possible urinary tract infection. Urinalysis revealed positive nitrates grade 182 white blood cells convincing for severe urinary tract infection. Patient is afebrile does not appear toxic. No signs of sepsis. Heart rate and blood pressure within except for limits. Patient is complaining of generalized weakness. No focal neurological deficit. Family () at bedside states patient is at baseline. At this time we will admit patient for IV antibiotics. Family was requesting a physical therapy referral. I discussed the case with Dr. Ham, reviewed previous sensitivities, began patient on IV abx, urine and blood cultures pending. Dr. Ham is agreeable with admission to Dr. Das. No further orders. Patient agreeable with admission. - Lab Data Result diagrams: 01/03/19 18:20 01/03/19 18:20 Lab Results 01/03/19 01/03/19 01/03/19 Range/Units 18:20 18:20 18:20 WBC 5.8 (3.8-10.6) k/uL RBC 3.49 L (4.30-5.90) m/uL Hgb 9.6 L (13.0-17.5) gm/dL Hct 28.9 L (39.0-53.0) % MCV 82.9 (80.0-100.0) fL MCH 27.4 (25.0-35.0) pg MCHC 33.1 (31.0-37.0) g/dL RDW 17.9 H (11.5-15.5) % Poikilocytosis Slight Anisocytosis Slight Sodium 146 H (137-145) mmol/L Potassium 4.7 (3.5-5.1) mmol/L Chloride 113 H (98-107) mmol/L Carbon Dioxide 24 (22-30) mmol/L Anion Gap 9 mmol/L BUN 26 H (9-20) mg/dL Creatinine 0.95 (0.66-1.25) mg/dL Est GFR (CKD-EPI)AfAm >90 (>60 ml/min/1.73 sqM) Est GFR (CKD-EPI)NonAf 82 (>60 ml/min/1.73 sqM) Glucose 189 H (74-99) mg/dL Plasma Lactic Acid Anthony 1.0 (0.7-2.0) mmol/L Calcium 8.3 L (8.4-10.2) mg/dL Total Bilirubin 0.2 (0.2-1.3) mg/dL AST 21 (17-59) U/L ALT 14 L (21-72) U/L Alkaline Phosphatase 87 (38-126) U/L Total Protein 6.4 (6.3-8.2) g/dL Albumin 3.8 (3.5-5.0) g/dL Urine Color Urine Appearance (Clear) Urine pH (5.0-8.0) Ur Specific [place] (1.001-1.035) Urine Protein (Negative) Urine Glucose (UA) (Negative) Urine Ketones (Negative) Urine Blood (Negative) Urine Nitrite (Negative) Urine Bilirubin (Negative) Urine Urobilinogen (<2.0) mg/dL Ur Leukocyte Esterase (Negative) Urine RBC (0-5) /hpf Urine WBC (0-5) /hpf Urine WBC Clumps (None) /hpf Urine Bacteria (None) /hpf Urine Mucus (None) /hpf 01/03/19 Range/Units 18:34 WBC (3.8-10.6) k/uL RBC (4.30-5.90) m/uL Hgb (13.0-17.5) gm/dL Hct (39.0-53.0) % MCV (80.0-100.0) fL MCH (25.0-35.0) pg MCHC (31.0-37.0) g/dL RDW (11.5-15.5) % Poikilocytosis Anisocytosis Sodium (137-145) mmol/L Potassium (3.5-5.1) mmol/L Chloride (98-107) mmol/L Carbon Dioxide (22-30) mmol/L Anion Gap mmol/L BUN (9-20) mg/dL Creatinine (0.66-1.25) mg/dL Est GFR (CKD-EPI)AfAm (>60 ml/min/1.73 sqM) Est GFR (CKD-EPI)NonAf (>60 ml/min/1.73 sqM) Glucose (74-99) mg/dL Plasma Lactic Acid Anthony (0.7-2.0) mmol/L Calcium (8.4-10.2) mg/dL Total Bilirubin (0.2-1.3) mg/dL AST (17-59) U/L ALT (21-72) U/L Alkaline Phosphatase (38-126) U/L Total Protein (6.3-8.2) g/dL Albumin (3.5-5.0) g/dL Urine Color Yellow Urine Appearance Cloudy (Clear) Urine pH 5.5 (5.0-8.0) Ur Specific [place] 1.013 (1.001-1.035) Urine Protein 1+ H (Negative) Urine Glucose (UA) 1+ H (Negative) Urine Ketones Negative (Negative) Urine Blood Small H (Negative) Urine Nitrite Positive (Negative) Urine Bilirubin Negative (Negative) Urine Urobilinogen <2.0 (<2.0) mg/dL Ur Leukocyte Esterase Large H (Negative) Urine RBC 6 H (0-5) /hpf Urine WBC >182 H (0-5) /hpf Urine WBC Clumps Many H (None) /hpf Urine Bacteria Many H (None) /hpf Urine Mucus Occasional H (None) /hpf Disposition Clinical Impression: Generalized weakness, UTI (urinary tract infection) Narrative: excoriated scrotum additional diagnosis Disposition: ADMITTED IP TO THIS [facility] Condition: Stable Is patient prescribed a controlled substance at d/c from ED?: No Referrals: [facility],Clinic [Primary Care Provider] - 1-2 days Time of Disposition: 19:50 Decision to Admit Reason: Admit from EC Decision Date: 01/03/19 Decision Time: 19:50
[2019-01-03] MEDS ORDERED: SODIUM CHLORIDE 0.9% 500 ML 500 ML IV STA (18:59)
[2019-01-03 19:30] LABS: Anisocytosis Slight; Basophils % (A) 0 %; Eosinophils # (A) 0.1 k/uL (0-0.7); Eosinophils % (A) 2 %; HCT 28.9 % (39.0-53.0); HGB 9.6 gm/dL (13.0-17.5); Lymphocytes # (A) 0.7 k/uL (1.0-4.8); Lymphocytes % (A) 13 %; MCH 27.4 pg (25.0-35.0); MCHC 33.1 g/dL (31.0-37.0); MCV 82.9 fL (80.0-100.0); Mean Platelet Volume 8.6; Monocytes # (A) 0.3 k/uL (0-1.0); Monocytes % (A) 5 %; Neutrophils # (A) 4.6 k/uL (1.3-7.7); Neutrophils % (A) 79 %; Poikilocytosis Slight; RBC 3.49 m/uL (4.30-5.90); RDW 17.9 % (11.5-15.5); WBC 5.8 k/uL (3.8-10.6)
[2019-01-03 19:31] LABS: Appearance,Urine Cloudy (Clear); Bacteria,Urine Many /hpf; Bilirubin,Urine Negative (Negative); Blood,Urine Small (Negative); Color,Urine Yellow; Glucose,Urine (UA) 1+ (Negative); Ketones,Urine Negative (Negative); Leukocyte Esterase,Urine Large (Negative); Mucus,Urine Occasional /hpf; Nitrite,Urine Positive (Negative); PH, Urine 5.5 (5.0-8.0); Protein,Urine 1+ (Negative); RBC,Urine 6 /hpf (0-5); Specific Gravity,Urine 1.013 (1.001-1.035); Urobilinogen,Urine <2.0 mg/dL (<2.0); WBC,Urine >182 /hpf (0-5)
[2019-01-03 19:46] LABS: Platelet Count 98 k/uL (150-450)
[2019-01-03 19:47] LABS: ALT 14 U/L (21-72); AST 21 U/L (17-59); African American GFR (CKD) >90 (>60 ml/min/1.73 sqM); Albumin 3.8 g/dL (3.5-5.0); Alkaline Phosphatase 87 U/L (38-126); Anion Gap 9 mmol/L; Blood Urea Nitrogen 26 mg/dL (9-20); Calcium 8.3 mg/dL (8.4-10.2); Carbon Dioxide 24 mmol/L (22-30); Chloride 113 mmol/L (98-107); Glucose 189 mg/dL (74-99); Potassium 4.7 mmol/L (3.5-5.1); Sodium 146 mmol/L (137-145); Total Bilirubin 0.2 mg/dL (0.2-1.3); Total Protein 6.4 g/dL (6.3-8.2)
[2019-01-03] MEDS ORDERED: NALOXONE 0.4 MG/ML 1 ML VIAL IV PRN (19:53)
[2019-01-03 20:54] LABS: Glucose,Whole Blood 187 mg/dL (75-99)
[2019-01-03] MEDS: SODIUM CHLORIDE 0.9% 1,000 ML IV SCH (23:13)
[2019-01-04] MEDS ORDERED: ACETAMINOPHEN IV (For NPO) 1,000 MG in EMPTY BAG 1 BAG IVPB PRN (05:48)
[2019-01-04 07:11] LABS: Glucose,Whole Blood 144 mg/dL (75-99)
[2019-01-04 10:37] VITALS: BMI 34.7
[2019-01-04 10:53] LABS: Glucose,Whole Blood 163 mg/dL (75-99)
[2019-01-04] MEDS ORDERED: PREGABALIN 100 MG CAP PO PRN (11:36)
[2019-01-04] MEDS ORDERED: ALBUTEROL NEBULIZED 2.5 MG/3 ML INHALATION PRN (11:36)
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
[2019-01-04] MEDS ORDERED: INSULIN ASPART (NovoLOG) 100 UNIT/ML VIAL SQ SCH (12:30)
[2019-01-04] MEDS: SODIUM CHLORIDE 0.9% 1,000 ML IV SCH (12:31)
[2019-01-04] MEDS: INSULIN ASPART (NovoLOG) 100 UNIT/ML VIAL SQ SCH ×3 (12:32→21:43)
[2019-01-04] MEDS: BACLOFEN 10 MG TAB PO SCH (12:34)
[2019-01-04] MEDS ORDERED: ACETAMINOPHEN TAB 325 MG TAB PO PRN (15:29)
[2019-01-04] MEDS: carBAMazepine 200 MG TAB PO SCH ×2 (15:54→21:45)
[2019-01-04] MEDS: ZIPRASIDONE 20 MG CAP PO SCH ×2 (15:54→21:45)
[2019-01-04 17:03] LABS: Glucose,Whole Blood 205 mg/dL (75-99)
[2019-01-04] MEDS: PANTOPRAZOLE 40 MG TABLET PO SCH (17:23)
[2019-01-04] MEDS: metFORMIN 500 MG TAB PO SCH (17:23)
[2019-01-04] MEDS: CARVEDILOL 12.5 MG TAB PO SCH (17:23)
[2019-01-04 20:35] LABS: Glucose,Whole Blood 199 mg/dL (75-99)
[2019-01-04] MEDS: INSULIN DETEMIR (LEVEMIR) 100 UNIT/ML SYR SQ SCH (21:42)
[2019-01-04] MEDS: HEPARIN SODIUM,PORCINE 5,000 UNIT/ML 1 ML VIAL SQ SCH (21:44)
[2019-01-04] MEDS: ALLOPURINOL 100 MG TAB PO SCH (21:45)
[2019-01-04] MEDS: TAMSULOSIN 0.4 MG CAP.ER.24H PO SCH (21:45)
[2019-01-04] MEDS: PRAVASTATIN SODIUM 80 MG TAB PO SCH (21:45)
[2019-01-04] MEDS: FLUTICASONE 50MCG/SPRAY NASAL 16GM EA NOSTRIL SCH (21:45)
[2019-01-04] MEDS: Mirabegron [Myrbetriq] PO SCH (21:48)
[2019-01-05 01:39] LABS: Glucose,Whole Blood 136 mg/dL (75-99)
[2019-01-05] MEDS: LEVOTHYROXINE 50 MCG TAB PO SCH (06:11)
[2019-01-05 07:05] LABS: Glucose,Whole Blood 135 mg/dL (75-99)
--- NOTE | 2019-01-05 07:33 | P.PN ---
Subjective This is a pleasant 68 years old male with past medical history of COPD, CVA/TIA, diabetes mellitus, the venous thrombosis and pulmonary embolism, GERD, hypertension, coronary artery disease, benign prostatic hyperplasia, sleep apnea on CPAP, hypothyroidism, recurrent UTI, disabled with wheelchair at home and disabled. He was recently in the hospital the last 2 months for UTI. He presents with generalized weakness for 2 days duration with no overt dysuria or change in frequency of urination or suprapubic tenderness however on admission his urine was suspicious for UTI. Patient denies chest pain or dyspnea. No dizziness. No new pain. No abdominal pain or nausea vomiting. No change in bowel habits. No fever. No abnormal weakness or numbness. No headache Vitals his stable and patient is afebrile. The showing no leukocytosis with h emoglobin 9.6, platelet 98, sodium 146, creatinine 0.9, sugar control. Liver enzymes not elevated, urinary tract analysis showing high suspicion for infection. Urine cultures pending. He has history of Proteus in his urine culture last month which is sensitive to many antibiotics. in The emergency room patient was started on Rocephin. Also he is in normal saline at [place] per hour. 01/05/2019 Patient is awake and alert. No nausea vomiting or abdominal pain. He presents with generalized weakness that affects his mobility with no overt signs symptoms of dysuria or others of UTI. He still feels generally weak although there is a slight improvement. His ooziness on CPAP machine at night. No change in bowel habits and no nausea vomiting. No chest pain or dyspnea. Vitas looks stable and patient is a febrile except for mild bradycardia at 53 which is asymptomatic. Sugar is controlled and labs are still pending. Discussed the case with infectious disease team, were going to continue with ceftriaxone currently and wait for his urine culture results. Review of systems CONSTITUTIONAL: No fever, no malaise, no fatigue. HEENT: No recent visual problems or hearing problems. Denied any sore throat. CARDIOVASCULAR: No orthopnea, PND, no palpitations, no syncope. PULMONARY: No shortness of breath, no cough, no hemoptysis. GASTROINTESTINAL: No diarrhea, no nausea, no vomiting, no abdominal pain. Normoactive bowel sounds. NEUROLOGICAL: No headaches, no weakness, no numbness. HEMATOLOGICAL: Denies any bleeding or petechiae. GENITOURINARY: Denies any burning micturition, frequency, or urgency. MUSCULOSKELETAL/RHEUMATOLOGICAL: Denies any joint pain, swelling, or any muscle pain. ENDOCRINE: Denies any polyuria or polydipsia. Active Medications Generic Name Dose Route Start Last Admin Trade Name Freq PRN Reason Stop Dose Admin Acetaminophen 650 mg 01/04/19 15:29 01/04/19 15:51 Tylenol Tab PO 650 mg Q4HR PRN Administration Fever and/ or Pain Albuterol Sulfate 2.5 mg 01/04/19 11:36 Ventolin Nebulized INHALATION RT-Q4H PRN Shortness Of Breath Allopurinol 100 mg 01/04/19 21:00 01/04/19 21:45 Zyloprim PO 100 mg BID [facility] Administration Amlodipine Besylate 10 mg 01/05/19 09:00 Norvasc PO DAILY [facility] Baclofen 10 mg 01/04/19 13:00 01/04/19 12:34 Lioresal PO 10 mg BID@0800,1300 [facility] Administration Carbamazepine 400 mg 01/04/19 16:00 01/04/19 21:45 Tegretol PO 400 mg TID ALONSO Administration Carvedilol 12.5 mg 01/04/19 17:30 01/04/19 17:23 Coreg PO 12.5 mg BID-W/MEALS ALONSO Administration Clopidogrel Bisulfate 75 mg 01/05/19 09:00 Plavix PO DAILY [facility] Ergocalciferol 100,000 unit 01/05/19 09:00 Vitamin D2 PO Q14D [facility] Fenofibrate 160 mg 01/05/19 09:00 Lofibra PO DAILY [facility] Finasteride 5 mg 01/05/19 09:00 Proscar PO DAILY [facility] Fluticasone Propionate 1 spray 01/04/19 21:00 01/04/19 21:45 Flonase Nasal [place] EA NOSTRIL 1 spray BID [facility] Administration Heparin Sodium (Porcine) 5,000 unit 01/04/19 21:15 01/04/19 21:44 Heparin SQ 5,000 unit Q12HR [facility] Administration Sodium Chloride 1,000 mls @ 40 mls/hr 01/03/19 20:00 01/04/19 12:31 Saline 0.9% IV Not Given .Q24H [facility] Ceftriaxone Sodium 1 gm/ 50 mls @ 100 mls/hr 01/04/19 12:00 01/04/19 12:32 Sodium Chloride IVPB 100 mls/hr Q24HR [facility] Administration Insulin Aspart 0 unit 01/04/19 12:30 01/04/19 21:43 Novolog SQ 3 unit ACHS [facility] Administration Protocol Insulin Detemir 120 unit 01/04/19 21:00 01/04/19 21:42 Levemir SQ 120 unit HS [facility] Administration Levothyroxine Sodium 50 mcg 01/05/19 06:30 01/05/19 06:11 Synthroid PO 50 mcg DAILY@0630 [facility] Administration Lisinopril 10 mg 01/05/19 09:00 Zestril PO DAILY [facility] Metformin HCl 1,000 mg 01/04/19 17:30 01/04/19 17:23 Glucophage PO 1,000 mg AC-BID [facility] Administration Naloxone HCl 0.2 mg 01/03/19 19:53 Narcan IV Q2M PRN Opioid Reversal Mirabegron [ 25 mg 01/04/19 21:00 01/04/19 21:48 Myrbetriq] PO Not Given HS [facility] Pantoprazole Sodium 40 mg 01/04/19 17:30 01/04/19 17:23 Protonix PO 40 mg AC-BID [facility] Administration Pravastatin Sodium 80 mg 01/04/19 21:00 01/04/19 21:45 Pravachol PO 80 mg HS [facility] Administration Pregabalin 100 mg 01/04/19 11:36 Lyrica PO TID PRN [facility] Sertraline HCl 200 mg 01/05/19 09:00 Zoloft PO DAILY [facility] Tamsulosin HCl 0.8 mg 01/04/19 21:00 01/04/19 21:45 Flomax PO 0.8 mg HS [facility] Administration Ziprasidone 20 mg 01/04/19 16:00 01/04/19 21:45 Geodon PO 20 mg TID [facility] Administration Objective - Vital Signs Vital signs: Vital Signs Temp 97.8 F 01/05/19 05:00 Pulse 53 L 01/05/19 05:00 Resp 18 01/05/19 05:00 BP 144/68 01/05/19 05:00 Pulse Ox 99 01/05/19 05:00 Intake & Output 01/04/19 01/05/19 01/05/19 18:59 06:59 18:59 Intake Total 1050 1200 Balance 1050 1200 Weight 112.945 kg Intake: Intake, IV Titration 100 480 Amount Sodium Chloride 0.9% 1, 480 000 ml @ 40 mls/hr IV . Q24H [facility] Rx#:[id number] cefTRIAXone 1 gm In 100 Sodium Chloride 0.9% 50 ml @ 100 mls/hr IVPB Q24HR [facility] Rx#:[id number] Oral 950 720 Other: Voiding Method Diaper Diaper Incontinent Incontinent # Voids 2 4 - Exam GENERAL: The patient is alert and oriented x3, not in any acute distress. Well developed, well nourished. HEENT: Pupils are round and equally reacting to light. EOMI. No scleral icterus. No conjunctival pallor. Normocephalic, atraumatic. No pharyngeal erythema. No thyromegaly. CARDIOVASCULAR: S1 and S2 present. No murmurs, rubs, or gallops. PULMONARY: Chest is clear to auscultation, no wheezing or crackles. ABDOMEN: Soft, nontender, nondistended, normoactive bowel sounds. No palpable organomegaly. MUSCULOSKELETAL: No joint swelling or deformity. EXTREMITIES: No cyanosis, clubbing, or pedal edema. NEUROLOGICAL: Gross neurological examination did not reveal any focal deficits. SKIN: No rashes. - Labs CBC & Chem 7: 01/03/19 18:20 01/03/19 18:20 Labs: Abnormal Lab Results - Last 24 Hours (Table) 01/04/19 01/04/19 01/04/19 Range/Units 10:52 16:59 20:34 POC Glucose (mg/dL) 163 H 205 H 199 H (75-99) mg/dL 01/05/19 01/05/19 Range/Units 01:37 07:04 POC Glucose (mg/dL) 136 H 135 H (75-99) mg/dL Microbiology - Last 24 Hours (Table) 01/03/19 19:30 Blood Culture - Preliminary Blood No Growth after 24 hours 01/03/19 18:34 Urine Culture - Preliminary Urine,Catheterized Gram Neg Bacilli Assessment and Plan Assessment: Recurrent UTI Generalized weakness secondary to above Diabetes mellitus, type II COPD, not in acute exacerbation Hypothyroidism Sleep apnea on CPAP History of DVT/pulmonary embolism Benign prostatic hyperplasia History of coronary artery disease Hypertension CVA/TIA He is disabled and at wheelchair at home Plan: This is a pleasant 68 years old male who presents with recurrent UTI and g eneralized weakness. Continue with antibiotics as per ID team, continue with gentle hydration. Follow-up Infectious disease consult recommendation. Continue CPAP machine at night. Continue gentle hydration Labs and medication were reviewed.. Continue same treatment. Continue with symptomatic treatment. Resume home medication. Monitor lytes and vitals. DVT and GI prophylaxis. Further recommendations of the clinical course of the patient DVT prophylaxis: Subcutaneous heparin GI Prophylaxis: Pepcid PT/OT: Pending CODE STATUS as per patient: Full code without intubation. Prognosis is guarded
[2019-01-05 08:27] LABS: African American GFR (CKD) >90 (>60 ml/min/1.73 sqM); Anion Gap 8 mmol/L; Blood Urea Nitrogen 23 mg/dL (9-20); Calcium 9.8 mg/dL (8.4-10.2); Carbon Dioxide 31 mmol/L (22-30); Chloride 103 mmol/L (98-107); Glucose 130 mg/dL (74-99); Potassium 4.4 mmol/L (3.5-5.1); Sodium 142 mmol/L (137-145)
[2019-01-05] MEDS: SERTRALINE 100 MG TAB PO SCH (08:41)
[2019-01-05] MEDS: amLODIPine 10 MG TAB PO SCH (08:41)
[2019-01-05] MEDS: HEPARIN SODIUM,PORCINE 5,000 UNIT/ML 1 ML VIAL SQ SCH ×2 (08:41→21:39)
[2019-01-05] MEDS: CLOPIDOGREL 75 MG TAB PO SCH (08:42)
[2019-01-05] MEDS: BACLOFEN 10 MG TAB PO SCH ×2 (08:42→12:57)
[2019-01-05] MEDS: LISINOPRIL 10 MG TAB PO SCH (08:42)
[2019-01-05] MEDS: metFORMIN 500 MG TAB PO SCH ×2 (08:42→18:02)
[2019-01-05] MEDS: ALLOPURINOL 100 MG TAB PO SCH ×2 (08:42→21:39)
[2019-01-05] MEDS: CARVEDILOL 12.5 MG TAB PO SCH ×2 (08:42→18:02)
[2019-01-05] MEDS: INSULIN ASPART (NovoLOG) 100 UNIT/ML VIAL SQ SCH ×4 (08:43→21:41)
[2019-01-05] MEDS: FENOFIBRATE 160 MG TAB PO SCH (08:45)
[2019-01-05] MEDS: carBAMazepine 200 MG TAB PO SCH ×3 (08:46→21:40)
[2019-01-05] MEDS: FLUTICASONE 50MCG/SPRAY NASAL 16GM EA NOSTRIL SCH ×2 (08:46→21:45)
[2019-01-05] MEDS: FINASTERIDE 5 MG TAB PO SCH (08:47)
[2019-01-05] MEDS: ZIPRASIDONE 20 MG CAP PO SCH ×3 (08:47→21:40)
[2019-01-05 08:48] LABS: Anisocytosis Slight; Basophils % (A) 1 %; Eosinophils # (A) 0.1 k/uL (0-0.7); Eosinophils % (A) 1 %; HCT 29.7 % (39.0-53.0); HGB 9.7 gm/dL (13.0-17.5); Lymphocytes # (A) 1.1 k/uL (1.0-4.8); Lymphocytes % (A) 23 %; MCH 27.3 pg (25.0-35.0); MCHC 32.8 g/dL (31.0-37.0); Mean Platelet Volume 8.3; Monocytes # (A) 0.3 k/uL (0-1.0); Monocytes % (A) 6 %; Neutrophils # (A) 3.3 k/uL (1.3-7.7); Neutrophils % (A) 67 %; Platelet Count 102 k/uL (150-450); RBC 3.57 m/uL (4.30-5.90); RDW 17.4 % (11.5-15.5)
[2019-01-05] MEDS: PANTOPRAZOLE 40 MG TABLET PO SCH ×2 (08:49→18:02)
[2019-01-05] MEDS ORDERED: ERGOCALCIFEROL 50,000 UNIT CAP PO SCH (09:00)
[2019-01-05 11:44] LABS: Glucose,Whole Blood 189 mg/dL (75-99)
[2019-01-05] MEDS: SODIUM CHLORIDE 0.9% 1,000 ML IV SCH ×2 (12:57→23:42)
[2019-01-05 17:03] LABS: Glucose,Whole Blood 122 mg/dL (75-99)
--- NOTE | 2019-01-05 17:33 | US ---
EXAMINATION TYPE: US kidneys/renal and bladder DATE OF EXAM: 01/05/2019 COMPARISON: US CLINICAL HISTORY: recurrent uti. EXAM MEASUREMENTS: Right Kidney: 12.6 x 6.5 x 7.7 cm Left Kidney: 12.8 x 5.4 x 6.2 cm Right Kidney: Either one septated or two side by side cysts seen lower pole, as one measures 9.5 x 5. 3 x 3.6 cm, as two measures 6.5 x 5.6 x 6.8, and 3.6 x 3.1 x 3.5 cm. Left Kidney: Two cysts seen, one measures 2.9 x 2.4 x 2.5 cm located sup/mid, and the other measures 2.6 x 2.2 x 2.3 cm as is located sup/medial. Bladder: wnl Bilateral Jets seen: No IMPRESSION: Multiple bilateral renal cortical cysts. No hydronephrosis. No ureteral jets were seen during the exa m. Urinary bladder is sonolucent.
--- NOTE | 2019-01-05 19:12 | PN ---
PROGRESS NOTE DATE OF SERVICE: 01/05/2019. REASON FOR FOLLOWUP: Urinary tract infection and history of recurrent UTI. INTERVAL HISTORY: The patient is currently afebrile. Patient has been breathing comfortably. The patient denies having any chest pain or any cough. No nausea, vomiting. No abdominal pain. No diarrhea. PHYSICAL EXAMINATION: Blood pressure 157/72 with a pulse of 88. Temperature is 97.9, he is 97% on 2 L nasal cannula. General description is an elderly male lying in bed in no distress. Respiratory system: Unlabored breathing. Clear to auscultation anteriorly. Heart S1, S2. Regular rate and rhythm. Abdomen soft, no tenderness. LABS: Hemoglobin 9.4, white count 5.0, BUN of 23, creatinine 0.89. Blood culture negative. Urine showing a gram-negative bacilli with ID sensitivities pending. DIAGNOSTIC IMPRESSION AND PLAN: Patient admitted to the hospital with urinary tract infection in this patient who did have history of recurrent urinary tract infection. Await the ultrasound of the kidneys and the bladder area to abnormality also check post void residual. Continue with Rocephin while waiting for the ID sensitivities to finalize. Continue supportive care. MMODL / IJN: [id number] /
[2019-01-05 20:26] LABS: Glucose,Whole Blood 133 mg/dL (75-99)
[2019-01-05] MEDS: TAMSULOSIN 0.4 MG CAP.ER.24H PO SCH (21:39)
[2019-01-05] MEDS: Mirabegron [Myrbetriq] PO SCH (21:40)
[2019-01-05] MEDS: PRAVASTATIN SODIUM 80 MG TAB PO SCH (21:40)
[2019-01-05] MEDS: INSULIN DETEMIR (LEVEMIR) 100 UNIT/ML SYR SQ SCH (21:40)
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
[2019-01-06] MEDS: LEVOTHYROXINE 50 MCG TAB PO SCH (05:41)
[2019-01-06] MEDS ORDERED: ONDANSETRON 4 MG TAB PO PRN (07:04)
[2019-01-06 07:10] LABS: Glucose,Whole Blood 147 mg/dL (75-99)
[2019-01-06] MEDS: INSULIN ASPART (NovoLOG) 100 UNIT/ML VIAL SQ SCH ×2 (07:29→12:14)
[2019-01-06] MEDS: HEPARIN SODIUM,PORCINE 5,000 UNIT/ML 1 ML VIAL SQ SCH (08:44)
[2019-01-06] MEDS: metFORMIN 500 MG TAB PO SCH (08:44)
[2019-01-06] MEDS: LISINOPRIL 10 MG TAB PO SCH (08:45)
[2019-01-06] MEDS: BACLOFEN 10 MG TAB PO SCH ×2 (08:45→12:13)
[2019-01-06] MEDS: PANTOPRAZOLE 40 MG TABLET PO SCH (08:45)
[2019-01-06] MEDS: CARVEDILOL 12.5 MG TAB PO SCH (08:45)
[2019-01-06] MEDS: amLODIPine 10 MG TAB PO SCH (08:45)
[2019-01-06] MEDS: SERTRALINE 100 MG TAB PO SCH (08:45)
[2019-01-06] MEDS: ALLOPURINOL 100 MG TAB PO SCH (08:45)
[2019-01-06] MEDS: CLOPIDOGREL 75 MG TAB PO SCH (08:45)
[2019-01-06] MEDS: carBAMazepine 200 MG TAB PO SCH ×2 (08:46→15:52)
[2019-01-06] MEDS: ZIPRASIDONE 20 MG CAP PO SCH ×2 (08:46→15:52)
[2019-01-06] MEDS: FENOFIBRATE 160 MG TAB PO SCH (08:46)
[2019-01-06] MEDS: FINASTERIDE 5 MG TAB PO SCH (08:46)
[2019-01-06] MEDS: FLUTICASONE 50MCG/SPRAY NASAL 16GM EA NOSTRIL SCH (08:47)
[2019-01-06 11:39] LABS: Glucose,Whole Blood 164 mg/dL (75-99)
[2019-01-06 12:39] VITALS: BP 161/70; PULSE 58; RESP 17; TEMP 98.1
--- NOTE | 2019-01-06 14:00 | P.DS ---
Providers Date of admission: 01/05/19 15:35 Attending physician: Kassie Das Consults: 01/04/19 11:43 Consult Physician Urgent Consulting Provider: Chiki Blake Consult Reason/Comments: recurrent UTI Do you want consulting provider notified?: Yes Primary care physician: [facility] Hospital Course: Diagnoses: Recurrent UTI Generalized weakness secondary to above Bilateral multiple renal cysts Benign prostatic hyperplasia Diabetes mellitus, type II COPD, not in acute exacerbation Hypothyroidism Sleep apnea on CPAP History of DVT/pulmonary embolism History of coronary artery disease Hypertension CVA/TIA He is disabled and at wheelchair at home Hospital course: This is a pleasant 68 years old male with past medical history of COPD, CVA/TIA, diabetes mellitus, the venous thrombosis and pulmonary embolism, GERD, hypertension, coronary artery disease, benign prostatic hyperplasia, sleep apnea on CPAP, hypothyroidism, recurrent UTI, disabled with wheelchair at home. He was recently in the hospital the last 2 months for UTI. He presents with generalized weakness for 2 days duration with no overt dysuria or change in frequency of urination or suprapubic tenderness however on admission his urine was suspicious for UTI. Patient was treated on ceftriaxone and he showed interval improvement. Urine culture is came back positive to E coli, sensitive to many antibiotics. Patient has been evaluated by physical therapy and recommended subacute rehab to the patient but he refused and he was to go home. Patient denies chest pain or dyspnea. No dizziness. No new pain. No abdominal pain or nausea vomiting. No change in bowel habits. No fever. No abnormal weakness or numbness. No headache Problems and management plan were discussed with the patient and he verbalized understanding and acceptance Patient was found stable and can be discharged home however he needs follow-up as an outpatient. Patient was instructed to follow up with his PCP within one week and he agrees. Also he follows with Dr. Og for his prostate problem. Patient was informed about his multiple kidney cysts and instructed to follow up with Dr. Townsend within one to 2 weeks and he agrees as well. Patient agrees with the appointments made for him with his PCP on 01/11/2019 and 1 PM. Gen: patient is a AAOx3, no distress. Obese CVS: S1-S2, RRR, no murmur Lungs: B/L CTA, no wheezing Abdomen: soft, no distention, no tenderness, positive bowel sounds Extremity: no leg edema or induration neuro: Bed-bound/wheelchair-bound at baseline. Cranial nerves are grossly intact. No meningeal signs Time spent more than 35 minutes Patient Condition at Discharge: Stable Plan - Discharge Summary Discharge Rx Participant: Yes New Discharge Prescriptions: No Action Levothyroxine Sodium [Synthroid] 50 mcg PO DAILY carBAMazepine [TEGretol] 400 mg PO TID Finasteride [Proscar] 5 mg PO DAILY Ziprasidone [Geodon] 20 mg PO TID Sertraline [Zoloft] 200 mg PO DAILY Allopurinol [Zyloprim] 100 mg PO BID Ergocalciferol [Vitamin D2 (DRISDOL)] 100,000 unit PO Q14D Tamsulosin [Flomax] 0.8 mg PO HS Pravastatin Sodium [Pravachol] 80 mg PO HS [place]-3 Fatty Acids/Fish Oil [Fish Oil 1,000 mg Softgel] 2 cap PO BID Clopidogrel Bisulfate [Plavix] 75 mg PO DAILY #20 tab Multivitamins, Thera [Multivitamin (formulary)] 1 tab PO DAILY Gemfibrozil [Lopid] 600 mg PO BID Ranitidine HCl [Zantac] 300 mg PO HS metFORMIN HCL 1,000 mg PO BID Albuterol Sulfate [Proair Hfa] 2 puff INHALATION RT-Q4H PRN PRN Reason: Shortness Of Breath amLODIPine [Norvasc] 10 mg PO DAILY Carvedilol [Coreg] 12.5 mg PO BID Diclofenac Sodium Gel [Voltaren Gel] 1 applic TOPICAL BID PRN PRN Reason: Pain Fluticasone Nasal [place] [Flonase Nasal [place]] 1 spray EA NOSTRIL BID Insulin Glargine,Hum.rec.anlog [Lantus Solostar] 120 unit SQ HS clonazePAM [KlonoPIN] 0.5 mg PO TID PRN PRN Reason: ANXIETY Pregabalin [Lyrica] 100 mg PO TID PRN PRN Reason: NERVE PAIN Baclofen [Lioresal] 20 mg PO HS Baclofen [Lioresal] 10 mg PO BID@0800,1300 Loratadine [Claritin] 10 mg PO DAILY Pantoprazole Sodium [Protonix] 40 mg PO BID Insulin Aspart [NovoLOG Flexpen] See Protocol SQ AC-TID Insulin Aspart [NovoLOG Flexpen] 40 units SQ AC-TID Lisinopril [Prinivil] 10 mg PO DAILY Mirabegron [Myrbetriq] 25 mg PO HS Discharge Medication List Allopurinol [Zyloprim] 100 mg PO BID 12/02/14 [History] Ergocalciferol [Vitamin D2 (DRISDOL)] 100,000 unit PO Q14D 12/02/14 [History] Finasteride [Proscar] 5 mg PO DAILY 12/02/14 [History] Levothyroxine Sodium [Synthroid] 50 mcg PO DAILY 12/02/14 [History] [place]-3 Fatty Acids/Fish Oil [Fish Oil 1,000 mg Softgel] 2 cap PO BID 12/02/14 [History] Pravastatin Sodium [Pravachol] 80 mg PO HS 12/02/14 [History] Sertraline [Zoloft] 200 mg PO DAILY 12/02/14 [History] Tamsulosin [Flomax] 0.8 mg PO HS 12/02/14 [History] Ziprasidone [Geodon] 20 mg PO TID 12/02/14 [History] carBAMazepine [TEGretol] 400 mg PO TID 12/02/14 [History] Clopidogrel Bisulfate [Plavix] 75 mg PO DAILY #20 tab 10/01/15 [Rx] Gemfibrozil [Lopid] 600 mg PO BID 12/21/16 [History] Multivitamins, Thera [Multivitamin (formulary)] 1 tab PO DAILY 12/21/16 [History] Ranitidine HCl [Zantac] 300 mg PO HS 07/01/17 [History] metFORMIN HCL 1,000 mg PO BID 03/06/18 [History] Albuterol Sulfate [Proair Hfa] 2 puff INHALATION RT-Q4H PRN 08/20/18 [History] Carvedilol [Coreg] 12.5 mg PO BID 08/20/18 [History] Diclofenac Sodium Gel [Voltaren Gel] 1 applic TOPICAL BID PRN 08/20/18 [History] Fluticasone Nasal [place] [Flonase Nasal [place]] 1 spray EA NOSTRIL BID 08/20/18 [History] Insulin Glargine,Hum.rec.anlog [Lantus Solostar] 120 unit SQ HS 08/20/18 [History] amLODIPine [Norvasc] 10 mg PO DAILY 08/20/18 [History] Pregabalin [Lyrica] 100 mg PO TID PRN 09/18/18 [History] clonazePAM [KlonoPIN] 0.5 mg PO TID PRN 09/18/18 [History] Baclofen [Lioresal] 10 mg PO BID@0800,1300 10/21/18 [History] Baclofen [Lioresal] 20 mg PO HS 10/21/18 [History] Loratadine [Claritin] 10 mg PO DAILY 10/21/18 [History] Pantoprazole Sodium [Protonix] 40 mg PO BID 10/21/18 [History] Insulin Aspart [NovoLOG Flexpen] 40 units SQ AC-TID 01/04/19 [History] Insulin Aspart [NovoLOG Flexpen] See Protocol SQ AC-TID 01/04/19 [History] Lisinopril [Prinivil] 10 mg PO DAILY 01/04/19 [History] Mirabegron [Myrbetriq] 25 mg PO HS 01/04/19 [History] Follow up Appointment(s)/Referral(s): Bear Townsend MD [STAFF PHYSICIAN] - 2 Weeks (Recurrent UTI, multiple renal cysts) [facility],Clinic [Primary Care Provider] - 01/11/19 1:00 pm Patient Instructions/Handouts: Urinary Tract Infection in Men (DC), Weakness (DC)
[2019-01-06] MEDS ORDERED: CALCIUM CARBONATE 500 MG CHEWABLE PO PRN (14:29)
--- NOTE | 2019-01-06 14:40 | PN ---
PROGRESS NOTE DATE OF SERVICE: 01/06/2019 REASON FOR FOLLOWUP: E coli urinary tract infection with history of recurrent UTI. INTERVAL HISTORY: The patient is currently afebrile. Patient has been breathing comfortably. Denies having any chest pain or any cough. No abdominal pain and no diarrhea. PHYSICAL EXAMINATION: Blood pressure is 151/70 with a pulse of 58, temperature 98.1, he is 98% on 2 L nasal cannula. General description is an elderly male, lying in bed in no distress. RESPIRATORY SYSTEM: Unlabored breathing, clear to auscultation anteriorly. HEART: S1, S2. Regular rate and rhythm. ABDOMEN: Soft, no tenderness. LABS: Urine has been finalized with an E coli sensitive pathogen. DIAGNOSTIC IMPRESSION AND PLAN: Patient with an E. coli urinary tract infection. This patient did have a history of recurrent UTIs. PLAN: At this time is to switch him over to a short course of oral Ceftin. A prescription has been sent to the pharmacy and continue supportive care. MMODL / IJN: [id number] /
== END 2019-01-06 17:10 | disposition home health service (06) | DRG 690 ==
LOC: EC 18:05 → 3NMEDONC 20:12 → OBSVTOIN 01-05 15:35
PROVIDERS: ADMIT Hospitalist; ATTEND Hospitalist
PROC: 5A09457 Assistance with Respiratory Ventilation, 24-96 Consecutive Hours, Continuous Positive Airway Pressure (ICD-10-PCS; principal; 2019-01-03)
DX: N39.0 Urinary tract infection, site not specified (principal); I69.954 Hemiplegia and hemiparesis following unspecified cerebrovascular disease affecting left non-dominant side; I69.951 Hemiplegia and hemiparesis following unspecified cerebrovascular disease affecting right dominant side; E11.42 Type 2 diabetes mellitus with diabetic polyneuropathy; E66.01 Morbid (severe) obesity due to excess calories; Z68.34 Body mass index [BMI] 34.0-34.9, adult; N28.1 Cyst of kidney, acquired; J44.9 Chronic obstructive pulmonary disease, unspecified; I69.928 Other speech and language deficits following unspecified cerebrovascular disease; G47.33 Obstructive sleep apnea (adult) (pediatric); I10 Essential (primary) hypertension; I25.2 Old myocardial infarction; R40.2142 Coma scale, eyes open, spontaneous, at arrival to emergency department; R40.2362 Coma scale, best motor response, obeys commands, at arrival to emergency department; R40.2252 Coma scale, best verbal response, oriented, at arrival to emergency department; B96.20 Unspecified Escherichia coli [E. coli] as the cause of diseases classified elsewhere; N40.1 Benign prostatic hyperplasia with lower urinary tract symptoms; N39.498 Other specified urinary incontinence; R31.9 Hematuria, unspecified; K21.9 Gastro-esophageal reflux disease without esophagitis; I25.10 Atherosclerotic heart disease of native coronary artery without angina pectoris; E03.9 Hypothyroidism, unspecified; G89.29 Other chronic pain; M54.9 Dorsalgia, unspecified; F32.9 Major depressive disorder, single episode, unspecified; F43.10 Post-traumatic stress disorder, unspecified; M10.9 Gout, unspecified; R29.6 Repeated falls; R26.9 Unspecified abnormalities of gait and mobility; Z79.02 Long term (current) use of antithrombotics/antiplatelets; Z79.4 Long term (current) use of insulin; Z79.890 Hormone replacement therapy; Z79.899 Other long term (current) drug therapy; Z71.3 Dietary counseling and surveillance; Z99.3 Dependence on wheelchair; Z87.440 Personal history of urinary (tract) infections; Z86.711 Personal history of pulmonary embolism; Z98.890 Other specified postprocedural states; Z86.718 Personal history of other venous thrombosis and embolism; Z99.89 Dependence on other enabling machines and devices; Z86.010 Personal history of colon polyps; Z86.19 Personal history of other infectious and parasitic diseases; Z89.021 Acquired absence of right finger(s); Z88.6 Allergy status to analgesic agent; Z88.8 Allergy status to other drugs, medicaments and biological substances; Z80.1 Family history of malignant neoplasm of trachea, bronchus and lung; Z80.52 Family history of malignant neoplasm of bladder
CPT/HCPCS: 36415; 51701; 76770; 80048; 80053; 81001; 83605; 85025; 87040; 87077; 87086; 87186; 94660; 96365; 99285

== ENCOUNTER 2019-01-18 20:19 | Observation (INO) | payer MEDICARE, OTHER ==
--- NOTE | 2019-01-18 21:16 | ED ---
SOB HPI - General Chief Complaint: Shortness of Breath Stated Complaint: SOB Time Seen by Provider: 01/18/19 20:55 Source: patient, family Mode of arrival: wheelchair Limitations: physical limitation - History of Present Illness Initial Comments: This patient is 68-year-old man who presents with complaint that he has been coughing and had a little shortness of breath going on since the day after he had left the hospital last week. He had been in for a few days being treated for urinary tract infection. The patient states that he followed with the clinic and was started on cefuroxime on but he still continues to have the cough. He states he does have occasional whitish sputum though not always. He denies chest pain. He has not had change in bowel movements or urination. No leg swelling. The patient had been seen at the clinic this evening, he had an albuterol treatment there and was found to have pulse ox readings below 94% so he was sent here for further evaluation. MD Complaint: shortness of breath, cough -: days(s) Severity scale (1-10): 0 Consistency: constant Improves With: nothing Worsens With: nothing Known History Of: COPD, congestive heart failure Associated Symptoms: cough, sputum production Treatments Prior to Arrival: bronchodilator - Related Data Home Oxygen Therapy: Yes Home Oxygen Amount: 3 Liters Home Medications Medication Instructions Recorded Confirmed Allopurinol [Zyloprim] 100 mg PO BID 12/02/14 01/04/19 Ergocalciferol [Vitamin D2 100,000 unit PO Q14D 12/02/14 01/04/19 (DRISDOL)] Finasteride [Proscar] 5 mg PO DAILY 12/02/14 01/04/19 Levothyroxine Sodium [Synthroid] 50 mcg PO DAILY 12/02/14 01/04/19 Edwards-3 Fatty Acids/Fish Oil [Fish 2 cap PO BID 12/02/14 01/04/19 Oil 1,000 mg Softgel] Pravastatin Sodium [Pravachol] 80 mg PO HS 12/02/14 01/04/19 Sertraline [Zoloft] 200 mg PO DAILY 12/02/14 01/04/19 Tamsulosin [Flomax] 0.8 mg PO HS 12/02/14 01/04/19 Ziprasidone [Geodon] 20 mg PO TID 12/02/14 01/04/19 carBAMazepine [TEGretol] 400 mg PO TID 12/02/14 01/04/19 Gemfibrozil [Lopid] 600 mg PO BID 12/21/16 01/04/19 Multivitamins, Thera [Multivitamin 1 tab PO DAILY 12/21/16 01/04/19 (formulary)] Ranitidine HCl [Zantac] 300 mg PO HS 07/01/17 01/04/19 metFORMIN HCL 1,000 mg PO BID 03/06/18 01/04/19 Albuterol Sulfate [Proair Hfa] 2 puff INHALATION RT-Q4H PRN 08/20/18 01/04/19 Carvedilol [Coreg] 12.5 mg PO BID 08/20/18 01/04/19 Diclofenac Sodium Gel [Voltaren 1 applic TOPICAL BID PRN 08/20/18 01/04/19 Gel] Fluticasone Nasal Moira [Flonase 1 spray EA NOSTRIL BID 08/20/18 01/04/19 Nasal Moira] Insulin Glargine,Hum.rec.anlog 120 unit SQ HS 08/20/18 01/04/19 [Lantus Solostar] amLODIPine [Norvasc] 10 mg PO DAILY 08/20/18 01/04/19 Pregabalin [Lyrica] 100 mg PO TID PRN 09/18/18 01/04/19 clonazePAM [KlonoPIN] 0.5 mg PO TID PRN 09/18/18 01/04/19 Baclofen [Lioresal] 10 mg PO BID@0800,1300 10/21/18 01/04/19 Baclofen [Lioresal] 20 mg PO HS 10/21/18 01/04/19 Loratadine [Claritin] 10 mg PO DAILY 10/21/18 01/04/19 Pantoprazole Sodium [Protonix] 40 mg PO BID 10/21/18 01/04/19 Insulin Aspart [NovoLOG Flexpen] 40 units SQ AC-TID 01/04/19 01/04/19 Insulin Aspart [NovoLOG Flexpen] See Protocol SQ AC-TID 01/04/19 01/04/19 Lisinopril [Prinivil] 10 mg PO DAILY 01/04/19 01/04/19 Mirabegron [Myrbetriq] 25 mg PO HS 01/04/19 01/04/19 Previous Rx's Medication Instructions Recorded Clopidogrel Bisulfate [Plavix] 75 mg PO DAILY #20 tab 10/01/15 Cefuroxime Axetil [Ceftin] 500 mg PO BID #20 tab 01/06/19 Cefuroxime Axetil [Ceftin] 500 mg PO BID #20 tab 01/07/19 Allergies Allergy/AdvReac Type Severity Reaction Status Date / Time aspirin Allergy ABDOMINAL Verified 01/18/19 20:31 DISCOMFORT etodolac [From Lodine] Allergy Unknown Verified 01/18/19 20:31 oxybutynin Allergy Unknown Verified 01/18/19 20:31 Review of Systems ROS Statement: Those systems with pertinent positive or pertinent negative responses have been documented in the HPI. ROS Other: All systems not noted in ROS Statement are negative. Constitutional: Denies: fever, chills Respiratory: Reports: as per HPI, cough, dyspnea. Denies: hemoptysis Cardiovascular: Reports: orthopnea. Denies: chest pain, palpitations, edema, syncope Gastrointestinal: Reports: constipation. Denies: abdominal pain, vomiting, diarrhea, melena, hematochezia Genitourinary: Reports: frequency. Denies: dysuria, hematuria Musculoskeletal: Denies: back pain Skin: Denies: rash Neurological: Denies: headache, weakness Past Medical History Past Medical History: COPD, CVA/TIA, Diabetes Mellitus, Deep Vein Thrombosis (DVT), GERD/Reflux, Hypertension, Myocardial Infarction ([place]), Prostate Disorder, Pulmonary Embolus (PE), Sleep Apnea/CPAP/BIPAP, Thyroid Disorder Additional Past Medical History / Comment(s): Morbid obesity, obstructive sleep apnea uses CPAP-uses O2 at 5 L during night with cpap, uses 3 liters nasal cannula at home continuous, SOB,history of peripheral neuropathy severe associated related to diabetes mellitus, gait dysfunction and frequent falls- uses w/c-able to stand to transfer, chronic back pain, gout, BPH, TIA/CVA-loyda arm and leg weakness, previous history of C. diff colitis back in 2010,hypothyroidism,colon polyps, per speech is garbled/slurred which is the residual from old stroke Last Myocardial Infarction Date:: 2010 History of Any Multi-Drug Resistant Organisms: None Reported Date of last positivie culture/infection: None MDRO Source:: None Past Surgical History: Hernia Repair Additional Past Surgical History / Comment(s): hiatal hernia repair x 2, umbilical hernia repair,2nd digit rt hand amputated Past Anesthesia/Blood Transfusion Reactions: No Reported Reaction Past Psychological History: Bipolar, Depression, PTSD Smoking Status: Never smoker Past Alcohol Use History: None Reported Past Drug Use History: None Reported - Past Family History Father Family Medical History: Cancer Additional Family Medical History / Comment(s): lung Mother Family Medical History: Cancer Additional Family Medical History / Comment(s): bladder General Exam Limitations: physical limitation General appearance: alert, in no apparent distress Head exam: Present: atraumatic, normocephalic Eye exam: Present: normal appearance ENT exam: Present: normal oropharynx Neck exam: Present: normal inspection Respiratory exam: Present: normal lung sounds bilaterally, wheezes (Mild expiratory wheeze), rales (Bilateral bases). Absent: respiratory distress, rhonchi, stridor, accessory muscle use Cardiovascular Exam: Present: normal rhythm, bradycardia (Rate 58 bpm), systolic murmur. Absent: diastolic murmur, rubs, gallop GI/Abdominal exam: Present: soft. Absent: distended, tenderness, guarding, rebound, rigid, mass Extremities exam: Present: normal inspection, normal capillary refill. Absent: pedal edema, calf tenderness Back exam: Present: normal inspection. Absent: CVA tenderness (R), CVA tenderness (L) Neurological exam: Present: alert Skin exam: Present: warm, dry, intact, normal color. Absent: rash Course Vital Signs 01/18/19 01/18/19 01/18/19 20:27 21:31 23:00 Temperature 98.2 F Pulse Rate 58 L 62 64 Pulse Rate [ Pulse Oximetery ] Respiratory 22 20 18 Rate Blood Pressure 125/58 130/60 133/67 Blood Pressure [Left Arm] O2 Sat by Pulse 95 97 98 Oximetry 01/19/19 01/19/19 01/19/19 00:00 00:23 00:31 Temperature Pulse Rate 61 60 60 Pulse Rate [ Pulse Oximetery ] Respiratory 20 Rate Blood Pressure 132/72 Blood Pressure [Left Arm] O2 Sat by Pulse 96 Oximetry 01/19/19 01/19/19 01:30 02:07 Temperature 97.9 F 98.1 F Pulse Rate 87 Pulse Rate [ 68 Pulse Oximetery ] Respiratory 19 18 Rate Blood Pressure 144/74 Blood Pressure 146/71 [Left Arm] O2 Sat by Pulse 95 97 Oximetry Medical Decision Making - Lab Data Result diagrams: 01/18/19 21:17 01/18/19 21:17 Lab Results 01/18/19 01/18/19 01/18/19 Range/Units 21:17 21:17 21:17 WBC 6.5 (3.8-10.6) k/uL RBC 4.09 L (4.30-5.90) m/uL Hgb 11.2 L (13.0-17.5) gm/dL Hct 32.6 L (39.0-53.0) % MCV 79.7 L (80.0-100.0) fL MCH 27.3 (25.0-35.0) pg MCHC 34.3 (31.0-37.0) g/dL RDW 16.6 H (11.5-15.5) % Plt Count 169 D (150-450) k/uL Neutrophils % 65 % Lymphocytes % 27 % Monocytes % 5 % Eosinophils % 1 % Basophils % 0 % Neutrophils # 4.2 (1.3-7.7) k/uL Lymphocytes # 1.7 (1.0-4.8) k/uL Monocytes # 0.3 (0-1.0) k/uL Eosinophils # 0.1 (0-0.7) k/uL Basophils # 0.0 (0-0.2) k/uL Poikilocytosis Slight Anisocytosis Slight PT (9.0-12.0) sec INR (<1.2) APTT (22.0-30.0) sec D-Dimer (<0.60) mg/L FEU Sodium 141 (137-145) mmol/L Potassium 5.5 H (3.5-5.1) mmol/L Chloride 103 (98-107) mmol/L Carbon Dioxide 24 (22-30) mmol/L Anion Gap 14 mmol/L BUN 24 H (9-20) mg/dL Creatinine 0.97 (0.66-1.25) mg/dL Est GFR (CKD-EPI)AfAm >90 (>60 ml/min/1.73 sqM) Est GFR (CKD-EPI)NonAf 80 (>60 ml/min/1.73 sqM) Glucose 148 H (74-99) mg/dL Plasma Lactic Acid Anthony (0.7-2.0) mmol/L Calcium 9.9 (8.4-10.2) mg/dL Total Bilirubin 0.2 (0.2-1.3) mg/dL AST 29 (17-59) U/L ALT 16 L (21-72) U/L Alkaline Phosphatase 80 (38-126) U/L Troponin I (0.000-0.034) ng/mL NT-Pro-B Natriuret Pep 92 pg/mL Total Protein 7.7 (6.3-8.2) g/dL Albumin 4.7 (3.5-5.0) g/dL Urine Color Urine Appearance (Clear) Urine pH (5.0-8.0) Ur Specific [place] (1.001-1.035) Urine Protein (Negative) Urine Glucose (UA) (Negative) Urine Ketones (Negative) Urine Blood (Negative) Urine Nitrite (Negative) Urine Bilirubin (Negative) Urine Urobilinogen (<2.0) mg/dL Ur Leukocyte Esterase (Negative) Urine WBC (0-5) /hpf Urine Mucus (None) /hpf Influenza Type A RNA (Not Detectd) Influenza Type B (PCR) (Not Detectd) 01/18/19 01/18/19 01/18/19 Range/Units 21:17 21:17 21:17 WBC (3.8-10.6) k/uL RBC (4.30-5.90) m/uL Hgb (13.0-17.5) gm/dL Hct (39.0-53.0) % MCV (80.0-100.0) fL MCH (25.0-35.0) pg MCHC (31.0-37.0) g/dL RDW (11.5-15.5) % Plt Count (150-450) k/uL Neutrophils % % Lymphocytes % % Monocytes % % Eosinophils % % Basophils % % Neutrophils # (1.3-7.7) k/uL Lymphocytes # (1.0-4.8) k/uL Monocytes # (0-1.0) k/uL Eosinophils # (0-0.7) k/uL Basophils # (0-0.2) k/uL Poikilocytosis Anisocytosis PT 10.6 (9.0-12.0) sec INR 1.0 (<1.2) APTT 28.9 (22.0-30.0) sec D-Dimer 1.62 H (<0.60) mg/L FEU Sodium (137-145) mmol/L Potassium (3.5-5.1) mmol/L Chloride (98-107) mmol/L Carbon Dioxide (22-30) mmol/L Anion Gap mmol/L BUN (9-20) mg/dL Creatinine (0.66-1.25) mg/dL Est GFR (CKD-EPI)AfAm (>60 ml/min/1.73 sqM) Est GFR (CKD-EPI)NonAf (>60 ml/min/1.73 sqM) Glucose (74-99) mg/dL Plasma Lactic Acid Anthony 1.2 (0.7-2.0) mmol/L Calcium (8.4-10.2) mg/dL Total Bilirubin (0.2-1.3) mg/dL AST (17-59) U/L ALT (21-72) U/L Alkaline Phosphatase (38-126) U/L Troponin I <0.012 (0.000-0.034) ng/mL NT-Pro-B Natriuret Pep pg/mL Total Protein (6.3-8.2) g/dL Albumin (3.5-5.0) g/dL Urine Color Urine Appearance (Clear) Urine pH (5.0-8.0) Ur Specific [place] (1.001-1.035) Urine Protein (Negative) Urine Glucose (UA) (Negative) Urine Ketones (Negative) Urine Blood (Negative) Urine Nitrite (Negative) Urine Bilirubin (Negative) Urine Urobilinogen (<2.0) mg/dL Ur Leukocyte Esterase (Negative) Urine WBC (0-5) /hpf Urine Mucus (None) /hpf Influenza Type A RNA (Not Detectd) Influenza Type B (PCR) (Not Detectd) 01/18/19 01/18/19 Range/Units 21:17 23:15 WBC (3.8-10.6) k/uL RBC (4.30-5.90) m/uL Hgb (13.0-17.5) gm/dL Hct (39.0-53.0) % MCV (80.0-100.0) fL MCH (25.0-35.0) pg MCHC (31.0-37.0) g/dL RDW (11.5-15.5) % Plt Count (150-450) k/uL Neutrophils % % Lymphocytes % % Monocytes % % Eosinophils % % Basophils % % Neutrophils # (1.3-7.7) k/uL Lymphocytes # (1.0-4.8) k/uL Monocytes # (0-1.0) k/uL Eosinophils # (0-0.7) k/uL Basophils # (0-0.2) k/uL Poikilocytosis Anisocytosis PT (9.0-12.0) sec INR (<1.2) APTT (22.0-30.0) sec D-Dimer (<0.60) mg/L FEU Sodium (137-145) mmol/L Potassium (3.5-5.1) mmol/L Chloride (98-107) mmol/L Carbon Dioxide (22-30) mmol/L Anion Gap mmol/L BUN (9-20) mg/dL Creatinine (0.66-1.25) mg/dL Est GFR (CKD-EPI)AfAm (>60 ml/min/1.73 sqM) Est GFR (CKD-EPI)NonAf (>60 ml/min/1.73 sqM) Glucose (74-99) mg/dL Plasma Lactic Acid Anthony (0.7-2.0) mmol/L Calcium (8.4-10.2) mg/dL Total Bilirubin (0.2-1.3) mg/dL AST (17-59) U/L ALT (21-72) U/L Alkaline Phosphatase (38-126) U/L Troponin I (0.000-0.034) ng/mL NT-Pro-B Natriuret Pep pg/mL Total Protein (6.3-8.2) g/dL Albumin (3.5-5.0) g/dL Urine Color Yellow Urine Appearance Clear (Clear) Urine pH 5.5 (5.0-8.0) Ur Specific [place] 1.012 (1.001-1.035) Urine Protein 1+ H (Negative) Urine Glucose (UA) Negative (Negative) Urine Ketones Negative (Negative) Urine Blood Negative (Negative) Urine Nitrite Negative (Negative) Urine Bilirubin Negative (Negative) Urine Urobilinogen <2.0 (<2.0) mg/dL Ur Leukocyte Esterase Negative (Negative) Urine WBC <1 (0-5) /hpf Urine Mucus Rare H (None) /hpf Influenza Type A RNA Not Detected (Not Detectd) Influenza Type B (PCR) Not Detected (Not Detectd) - EKG Data -: EKG Interpreted by Me EKG shows normal: sinus rhythm, axis (Normal), intervals (Normal), QRS complexes (Incomplete right bundle branch block. Left anterior fascicular block.), ST-T waves (Mode) Disposition Clinical Impression: Acute exacerbation of chronic obstructive pulmonary disease Disposition: ADMITTED IP TO THIS HOSP Condition: Poor Is patient prescribed a controlled substance at d/c from ED?: No
[2019-01-18 21:34] LABS: Anisocytosis Slight; Basophils % (A) 0 %; Eosinophils # (A) 0.1 k/uL (0-0.7); Eosinophils % (A) 1 %; HCT 32.6 % (39.0-53.0); HGB 11.2 gm/dL (13.0-17.5); Lymphocytes # (A) 1.7 k/uL (1.0-4.8); Lymphocytes % (A) 27 %; MCH 27.3 pg (25.0-35.0); MCHC 34.3 g/dL (31.0-37.0); MCV 79.7 fL (80.0-100.0); Mean Platelet Volume 7.6; Monocytes # (A) 0.3 k/uL (0-1.0); Monocytes % (A) 5 %; Neutrophils # (A) 4.2 k/uL (1.3-7.7); Neutrophils % (A) 65 %; Poikilocytosis Slight; RBC 4.09 m/uL (4.30-5.90); RDW 16.6 % (11.5-15.5); WBC 6.5 k/uL (3.8-10.6)
[2019-01-18 21:38] LABS: Platelet Count 169 k/uL (150-450)
--- NOTE | 2019-01-18 21:38 | XR ---
EXAMINATION TYPE: XR chest 2V DATE OF EXAM: 01/18/2019 COMPARISON: 10/25/2018 HISTORY: Weakness TECHNIQUE: Frontal and lateral views of the chest are obtained. FINDINGS: Heart and mediastinum are normal. Lungs are clear. Diaphragm is normal. Bony thorax appear s normal. IMPRESSION: Normal chest. No change.
[2019-01-18 21:41] LABS: ALT 16 U/L (21-72); AST 29 U/L (17-59); African American GFR (CKD) >90 (>60 ml/min/1.73 sqM); Albumin 4.7 g/dL (3.5-5.0); Alkaline Phosphatase 80 U/L (38-126); Anion Gap 14 mmol/L; Blood Urea Nitrogen 24 mg/dL (9-20); Calcium 9.9 mg/dL (8.4-10.2); Carbon Dioxide 24 mmol/L (22-30); Chloride 103 mmol/L (98-107); Glucose 148 mg/dL (74-99); Potassium 5.5 mmol/L (3.5-5.1); Sodium 141 mmol/L (137-145); Total Bilirubin 0.2 mg/dL (0.2-1.3); Total Protein 7.7 g/dL (6.3-8.2)
[2019-01-18 21:49] LABS: Partial Thromboplastin Time 28.9 sec (22.0-30.0); Prothrombin Time 10.6 sec (9.0-12.0)
[2019-01-18 21:57] LABS: D-Dimer 1.62 mg/L FEU (<0.60)
--- NOTE | 2019-01-18 23:22 | CT ---
EXAMINATION TYPE: CT chest angio for PE DATE OF EXAM: 01/18/2019 COMPARISON: None HISTORY: Cough. hx COPD. HTN, CVA/TIA CT DLP: 944.7 mGycm Automated exposure control for dose reduction was used. CONTRAST: CT Chest for pulmonary embolism performed with with IV Contrast, patient injected with 100 mL of Isov ue 370. FINDINGS: There are 3-D post processed images. There is some minimal atelectasis at the lung bases. Heart appea rs enlarged. There is no pericardial effusion. There is no pleural effusion. There is normal contrast opacification of the pulmonary arteries. I see no filling defects. Thoracic aorta is intact. There is no aneurysm or dissection. There is no mediastinal adenopathy. The bony tho rax is intact. The lungs are clear of consolidation. There is minimal pleural thickening lateral left lung base. IMPRESSION: Cardiomegaly. Mild pleural thickening and subsegmental atelectasis at the lung bases. No evidence of pulmonary embolism.
[2019-01-18 23:28] LABS: Appearance,Urine Clear (Clear); Bilirubin,Urine Negative (Negative); Blood,Urine Negative (Negative); Color,Urine Yellow; Glucose,Urine (UA) Negative (Negative); Ketones,Urine Negative (Negative); Leukocyte Esterase,Urine Negative (Negative); Mucus,Urine Rare /hpf; Nitrite,Urine Negative (Negative); PH, Urine 5.5 (5.0-8.0); Protein,Urine 1+ (Negative); Specific Gravity,Urine 1.012 (1.001-1.035); Urobilinogen,Urine <2.0 mg/dL (<2.0); WBC,Urine <1 /hpf (0-5)
[2019-01-19] MEDS ORDERED: ALBUTEROL NEBULIZED 2.5 MG/3 ML INHALATION STA (00:02)
[2019-01-19] MEDS ORDERED: predniSONE 20 MG TAB PO STA (00:55)
[2019-01-19] MEDS ORDERED: ALBUTEROL NEBULIZED 2.5 MG/3 ML INHALATION PRN (00:55)
[2019-01-19] MEDS ORDERED: PREGABALIN 100 MG CAP PO PRN (02:00)
[2019-01-19] MEDS ORDERED: clonazePAM 0.5 MG TAB PO PRN (02:00)
[2019-01-19] MEDS: LEVOTHYROXINE 50 MCG TAB PO SCH (05:07)
[2019-01-19 07:11] LABS: Glucose,Whole Blood 223 mg/dL (75-99)
[2019-01-19] MEDS: IPRATROPIUM-ALBUTEROL 3 ML NEB INHALATION SCH ×4 (08:46→21:02)
[2019-01-19] MEDS: BUDESONIDE 0.5 MG/2 ML NEBU INHALATION SCH ×2 (08:46→21:02)
[2019-01-19] MEDS ORDERED: LISINOPRIL 10 MG TAB PO SCH (09:00)
[2019-01-19] MEDS: guaiFENesin 600 MG TABLET.ER PO SCH ×2 (09:05→20:09)
[2019-01-19] MEDS: FINASTERIDE 5 MG TAB PO SCH (09:05)
[2019-01-19] MEDS: CLOPIDOGREL 75 MG TAB PO SCH (09:05)
[2019-01-19] MEDS: MULTIVITAMINS, THERA 1 EACH TAB PO SCH (09:05)
[2019-01-19] MEDS: CEFDINIR 300 MG CAP PO SCH ×2 (09:05→20:09)
[2019-01-19] MEDS: amLODIPine 10 MG TAB PO SCH (09:05)
[2019-01-19] MEDS: metFORMIN 500 MG TAB PO SCH ×3 (09:05→19:02)
[2019-01-19] MEDS: HEPARIN SODIUM,PORCINE 5,000 UNIT/ML 1 ML VIAL SQ SCH ×3 (09:06→23:01)
[2019-01-19] MEDS: carBAMazepine 200 MG TAB PO SCH ×3 (09:06→22:42)
[2019-01-19] MEDS: ZIPRASIDONE 20 MG CAP PO SCH ×3 (09:06→17:13)
[2019-01-19] MEDS: FENOFIBRATE 160 MG TAB PO SCH (09:06)
[2019-01-19] MEDS: predniSONE 20 MG TAB PO SCH (09:06)
[2019-01-19] MEDS: CARVEDILOL 12.5 MG TAB PO SCH ×2 (09:06→17:12)
[2019-01-19] MEDS: SERTRALINE 100 MG TAB PO SCH (09:06)
[2019-01-19] MEDS ORDERED: SODIUM POLYSTYRENE SULFONATE 15 GM/60 ML BOTTLE PO STA (10:35)
[2019-01-19 11:54] LABS: Glucose,Whole Blood 227 mg/dL (75-99)
--- NOTE | 2019-01-19 12:01 | US ---
EXAMINATION TYPE: US venous doppler duplex LE DATE OF EXAM: 01/19/2019 11:45 AM COMPARISON: NONE CLINICAL HISTORY: swelling and pain. Patient stated has bilateral ankle swelling x years; uses wheelc hair for ambulation; diabetic; COPD exacerbation SIDE PERFORMED: Bilateral TECHNIQUE: The lower extremity deep venous system is examined utilizing real time linear array sonog sunny with graded compression, doppler sonography and color-flow sonography. VESSELS IMAGED: Common Femoral Vein Deep Femoral Vein Greater Saphenous Vein * Femoral Vein Popliteal Vein Small Saphenous Vein * Proximal Calf Veins (* superficial vessels) Right Leg: Negative for DVT Left Leg: Negative for DVT IMPRESSION: 1. Bilateral lower extremity ultrasound negative for deep venous thrombosis.
--- NOTE | 2019-01-19 12:04 | P.HPIM ---
History of Present Illness his is a pleasant 68-year-old gentleman came in with plaints ofshortness of breath found to have wheezing and patient was started on oral steroids patient is uses 2-3 L off oxygen denied any history of COPD in the past unsure why he is 724 7 at home. When I valid the patient patient is having minimal wheeze never had any history of asthma. Patient never had any pulmonary function testing patient although will benefit from thetest. Patient had a CAT scan which did not show any pulmonary embolism or pneumonia is some atelectasis. Patient is complaining of cough with some sputum production patient was started on Ceftin from outpatient clinic. He is doing well but patient serum potassium is bit elevated to 5.7 and if still received lisinopril today because of which I'll hold his discharge today and will get a pulmonology to evaluate the patient patient may have some restrictive lung disease and there is no interstitial lung disease evident on the CAT scan of the chest. We'll give him a dose of Kayexalate if his basic metabolic profile as an show any hyperkalemia patient will be discharged tomorrow with the discontinuation of lisinopril at least temporarily. Review of Systems REVIEW OF SYSTEMS: CONSTITUTIONAL: No fever, no malaise, no fatigue. HEENT: No recent visual problems or hearing problems. Denied any sore throat. CARDIOVASCULAR: No chest pain, orthopnea, PND, no palpitations, no syncope. PULMONARY: as mentioned in HPI GASTROINTESTINAL: No diarrhea, no nausea, no vomiting, no abdominal pain. NEUROLOGICAL: No headaches, no weakness, no numbness. HEMATOLOGICAL: Denies any bleeding or petechiae. GENITOURINARY: Denies any burning micturition, frequency, or urgency. MUSCULOSKELETAL/RHEUMATOLOGICAL: Denies any joint pain, swelling, or any muscle pain. ENDOCRINE: Denies any polyuria or polydipsia. The rest of the 14-point review of systems is negative. Past Medical History Past Medical History: COPD, CVA/TIA, Diabetes Mellitus, Deep Vein Thrombosis (DVT), GERD/Reflux, Hypertension, Myocardial Infarction (ND), Prostate Disorder, Pulmonary Embolus (PE), Sleep Apnea/CPAP/BIPAP, Thyroid Disorder Additional Past Medical History / Comment(s): Morbid obesity, obstructive sleep apnea uses CPAP-uses O2 at 5 L during night with cpap, uses 3 liters nasal cannula at home continuous, SOB,history of peripheral neuropathy severe associated related to diabetes mellitus, gait dysfunction and frequent falls- uses w/c-able to stand to transfer, chronic back pain, gout, BPH, TIA/CVA-loyda arm and leg weakness, previous history of C. diff colitis back in 2010,hypothyroidism,colon polyps, per speech is garbled/slurred which is the residual from old stroke Last Myocardial Infarction Date:: 2010 History of Any Multi-Drug Resistant Organisms: None Reported Date of last positivie culture/infection: None MDRO Source:: None Past Surgical History: Hernia Repair Additional Past Surgical History / Comment(s): hiatal hernia repair x 2, umbilical hernia repair,2nd digit rt hand amputated Past Anesthesia/Blood Transfusion Reactions: No Reported Reaction Past Psychological History: Bipolar, Depression, PTSD Smoking Status: Never smoker Past Alcohol Use History: None Reported Past Drug Use History: None Reported - Past Family History Father Family Medical History: Cancer Additional Family Medical History / Comment(s): lung Mother Family Medical History: Cancer Additional Family Medical History / Comment(s): bladder Medications and Allergies Home Medications Medication Instructions Recorded Confirmed Type Allopurinol [Zyloprim] 100 mg PO BID 12/02/14 01/19/19 History Ergocalciferol [Vitamin D2 100,000 unit PO Q7D 12/02/14 01/19/19 History (DRISDOL)] Finasteride [Proscar] 5 mg PO DAILY 12/02/14 01/19/19 History Levothyroxine Sodium [Synthroid] 50 mcg PO DAILY 12/02/14 01/19/19 History [place]-3 Fatty Acids/Fish Oil [Fish 2 cap PO BID 12/02/14 01/19/19 History Oil 1,000 mg Softgel] Pravastatin Sodium [Pravachol] 80 mg PO HS 12/02/14 01/19/19 History Sertraline [Zoloft] 200 mg PO DAILY 12/02/14 01/19/19 History Tamsulosin [Flomax] 0.8 mg PO HS 12/02/14 01/19/19 History Ziprasidone [Geodon] 20 mg PO TID 12/02/14 01/19/19 History carBAMazepine [TEGretol] 400 mg PO TID 12/02/14 01/19/19 History Clopidogrel Bisulfate [Plavix] 75 mg PO DAILY #20 tab 10/01/15 01/19/19 Rx Gemfibrozil [Lopid] 600 mg PO BID 12/21/16 01/19/19 History Multivitamins, Thera [Multivitamin 1 tab PO DAILY 12/21/16 01/19/19 History (formulary)] Ranitidine HCl [Zantac] 300 mg PO HS 07/01/17 01/19/19 History metFORMIN HCL 1,000 mg PO BID 03/06/18 01/19/19 History Albuterol Sulfate [Proair Hfa] 2 puff INHALATION RT-Q4H PRN 08/20/18 01/19/19 History Carvedilol [Coreg] 12.5 mg PO BID 08/20/18 01/19/19 History Diclofenac Sodium Gel [Voltaren 1 applic TOPICAL BID PRN 08/20/18 01/19/19 History Gel] Fluticasone Nasal [place] [Flonase 1 spray EA NOSTRIL BID 08/20/18 01/19/19 History Nasal [place]] Insulin Glargine,Hum.rec.anlog 120 unit SQ HS 08/20/18 01/19/19 History [Lantus Solostar] amLODIPine [Norvasc] 10 mg PO DAILY 08/20/18 01/19/19 History Pregabalin [Lyrica] 100 mg PO TID PRN 09/18/18 01/19/19 History clonazePAM [KlonoPIN] 0.5 mg PO TID PRN 09/18/18 01/19/19 History Baclofen [Lioresal] 10 mg PO BID@0800,1300 10/21/18 01/19/19 History Baclofen [Lioresal] 20 mg PO HS 10/21/18 01/19/19 History Loratadine [Claritin] 10 mg PO DAILY 10/21/18 01/19/19 History Pantoprazole Sodium [Protonix] 40 mg PO BID 10/21/18 01/19/19 History Insulin Aspart [NovoLOG Flexpen] 40 units SQ AC-TID 01/04/19 01/19/19 History Insulin Aspart [NovoLOG Flexpen] See Protocol SQ AC-TID 01/04/19 01/19/19 History Lisinopril [Prinivil] 10 mg PO DAILY 01/04/19 01/19/19 History Mirabegron [Myrbetriq] 25 mg PO HS 01/04/19 01/19/19 History Carboxymethylcellulose Sodium 1 drop BOTH EYES QID 01/19/19 01/19/19 History [Refresh Tears] Petrolatum Eye Oint 1 applic BOTH EYES HS 01/19/19 01/19/19 History Ziprasidone [Geodon] 20 mg PO DAILY PRN 01/19/19 01/19/19 History Allergies Allergy/AdvReac Type Severity Reaction Status Date / Time aspirin Allergy ABDOMINAL Verified 01/19/19 08:31 DISCOMFORT etodolac [From Lodine] Allergy Unknown Verified 01/19/19 08:31 oxybutynin Allergy Unknown Verified 01/19/19 08:31 Physical Exam Vitals: Vital Signs Temp Pulse Pulse Resp BP BP Pulse Ox 01/19/19 08:58 72 01/19/19 08:47 75 20 96 01/19/19 07:00 98.4 F 74 18 137/62 95 01/19/19 02:07 98.1 F 87 18 144/74 97 01/19/19 01:30 97.9 F 68 19 146/71 95 01/19/19 00:31 60 01/19/19 00:23 60 01/19/19 00:00 61 20 132/72 96 01/18/19 23:00 64 18 133/67 98 01/18/19 21:31 62 20 130/60 97 01/18/19 20:27 98.2 F 58 L 22 125/58 95 Intake and Output 01/18/19 01/19/19 01/19/19 22:59 06:59 14:59 Intake Total 240 Balance 240 Intake: Oral 240 Other: Voiding Method Incontinent Incontinent # Voids 2 Weight 112.945 kg PHYSICAL EXAMINATION: GENERAL: The patient is alert and oriented x3, not in any acute distress. Well developed, well nourished. HEENT: Pupils are round and equally reacting to light. EOMI. No scleral icterus. No conjunctival pallor. Normocephalic, atraumatic. No pharyngeal erythema. No thyromegaly. CARDIOVASCULAR: S1 and S2 present. No murmurs, rubs, or gallops. PULMONARY:minimal expiratory wheeze on exam ABDOMEN: Soft, nontender, nondistended, normoactive bowel sounds. No palpable organomegaly. MUSCULOSKELETAL: No joint swelling or deformity. EXTREMITIES: No cyanosis, clubbing, or pedal edema. NEUROLOGICAL: Gross neurological examination did not reveal any focal deficits. SKIN: No rashes. Results CBC & Chem 7: 01/18/19 21:17 01/18/19 21:17 Labs: Abnormal Lab Results - Last 24 Hours (Table) 01/18/19 01/18/19 01/18/19 Range/Units 21:17 21:17 21:17 RBC 4.09 L (4.30-5.90) m/uL Hgb 11.2 L (13.0-17.5) gm/dL Hct 32.6 L (39.0-53.0) % MCV 79.7 L (80.0-100.0) fL RDW 16.6 H (11.5-15.5) % D-Dimer 1.62 H (<0.60) mg/L FEU Potassium 5.5 H (3.5-5.1) mmol/L BUN 24 H (9-20) mg/dL Glucose 148 H (74-99) mg/dL POC Glucose (mg/dL) (75-99) mg/dL ALT 16 L (21-72) U/L Urine Protein (Negative) Urine Mucus (None) /hpf 01/18/19 01/19/19 01/19/19 Range/Units 23:15 06:59 11:42 RBC (4.30-5.90) m/uL Hgb (13.0-17.5) gm/dL Hct (39.0-53.0) % MCV (80.0-100.0) fL RDW (11.5-15.5) % D-Dimer (<0.60) mg/L FEU Potassium (3.5-5.1) mmol/L BUN (9-20) mg/dL Glucose (74-99) mg/dL POC Glucose (mg/dL) 223 H 227 H (75-99) mg/dL ALT (21-72) U/L Urine Protein 1+ H (Negative) Urine Mucus Rare H (None) /hpf Thrombosis Risk Factor Assmnt - Choose All That Apply Each Risk Factor Represents 2 Points: Age 61-74 years Each Risk Factor Represents 3 Points: History of DVT/PE Thrombosis Risk Factor Assessment Total Risk Factor Score: 5 Thrombosis Risk Factor Assessment Level: High Risk Assessment and Plan Plan: -shortness of breath: Patient does have some obstructive disease never was diagnosed with asthma never smoked denied any COPD history patient will benefit from outpatient pulmonary function testing may be obstructive lung disease from his obesity, anyway will continue with the antibiotics for bronchitis and the oral steroids. pulmonology will evaluate the patient -type 2 diabetes mellitus patient will be continued on his home regimen and sliding scale insulin and patient's blood sugars are expected to be elevated because ofsystemic steroids -CVA/TIA in the past -DVT and PE in the pastpresently not on any anticoagulation -hyperlipidemia -Diabetic peripheral neuropathy -Obesity sleep apnea -Hypothyroidism -hypertension: Holding off on lisinopril because of her hyperkalemia next and- hyperkalemia secondary to SAM inhibitor which will be held and patient will be given keyaxlate for above-mentioned chronic medical problems patient will be resumed and continued on appropriate home medications. -DVT prophylaxis -early ambulation
[2019-01-19] MEDS: INSULIN ASPART (NovoLOG) 100 UNIT/ML VIAL SQ SCH ×3 (12:52→20:11)
--- NOTE | 2019-01-19 13:57 | P.CNPUL ---
History of Present Illness Consult date: 01/19/19 Requesting physician: Kassie Das Reason for consult: dyspnea, cough Chief complaint: cough and mild dyspnea History of present illness: This is a 68-year-old white male patient who follows with Lori Loyola PA-C, from [facility], with past medical history of COPD, on home oxygen, previous history of CVA/TIA, diabetes mellitus type 2, history of PE and DVT currently not on anticoagulation, hypertension, myocardial infarction, sleep apnea on CPAP therapy, morbid obesity, history of peripheral neuropathy, gait dysfunction, and patient is unable to ambulate, history of chronic pain, who was recently hospitalized for a urinary tract infection related to E. coli and was discharged home on 01/07/2019 on oral course of antibiotics. Patient presented to the emergency department on 01/18/2019 with complaints of increasing cough, and at times she is producing yellow colored sputum, and at times it's white, he also complained of mild dyspnea, but denied any chest pain, denied any fever, denied any chills, he is close to finishing his oral antibiotics. He complains of congested cough, and he states he thinks his lower extremities are somewhat more swollen than usual. Chest x-ray was taken and showed normal chest x-ray. Lab work was negative for any evidence of leukocytosis, white blood cell, 6.5, hemoglobin of 11.2, d-dimer was found to be elevated at 1.62, potassium was 5.5, and the rest of electrolytes were within normal limits with B1 is 24 creatinine 0.97, troponin was negative 1, proBNP was normal at 92, urinalysis showed no evidence of infection, influenza screen was negative. CTA chest was completed showing no evidence of pulmonary embolism and some minimal atelectasis at the lung bases. Venous Doppler ultrasound of lower extremities showed no evidence of DVT in the right or left leg. Patient is awake and alert, in no acute distress, lung sounds are diminished at the bases, no significant rhonchi or wheezing, he is on oral Cefdinir, Mucinex and breathing treatments. Review of Systems All systems: negative Constitutional: Denies chills, Denies fever Eyes: denies blurred vision, denies pain Ears, nose, mouth and throat: Denies headache, Denies sore throat Cardiovascular: Denies chest pain, Denies shortness of breath Respiratory: Reports cough, Reports dyspnea, Reports home oxygen Gastrointestinal: Denies abdominal pain, Denies diarrhea, Denies nausea, Denies vomiting Musculoskeletal: Denies myalgias Integumentary: Denies pruritus, Denies rash Neurological: Denies numbness, Denies weakness Psychiatric: Denies anxiety, Denies depression Endocrine: Denies fatigue, Denies weight change Past Medical History Past Medical History: COPD, CVA/TIA, Diabetes Mellitus, Deep Vein Thrombosis (DVT), GERD/Reflux, Hypertension, Myocardial Infarction (HI), Prostate Disorder, Pulmonary Embolus (PE), Sleep Apnea/CPAP/BIPAP, Thyroid Disorder Additional Past Medical History / Comment(s): Morbid obesity, obstructive sleep apnea uses CPAP-uses O2 at 5 L during night with cpap, uses 3 liters nasal cannula at home continuous, SOB,history of peripheral neuropathy severe associa mario related to diabetes mellitus, gait dysfunction and frequent falls-uses w/c- able to stand to transfer, chronic back pain, gout, BPH, TIA/CVA-loyda arm and leg weakness, previous history of C. diff colitis back in 2010,hypothyroidism,colon polyps, per speech is garbled/slurred which is the residual from old stroke Last Myocardial Infarction Date:: 2010 History of Any Multi-Drug Resistant Organisms: None Reported Date of last positivie culture/infection: None MDRO Source:: None Past Surgical History: Hernia Repair Additional Past Surgical History / Comment(s): hiatal hernia repair x 2, umbilical hernia repair,2nd digit rt hand amputated Past Anesthesia/Blood Transfusion Reactions: No Reported Reaction Past Psychological History: Bipolar, Depression, PTSD Smoking Status: Never smoker Past Alcohol Use History: None Reported Past Drug Use History: None Reported - Past Family History Father Family Medical History: Cancer Additional Family Medical History / Comment(s): lung Mother Family Medical History: Cancer Additional Family Medical History / Comment(s): bladder Medications and Allergies Home Medications Medication Instructions Recorded Confirmed Type Allopurinol [Zyloprim] 100 mg PO BID 12/02/14 01/19/19 History Ergocalciferol [Vitamin D2 100,000 unit PO Q7D 12/02/14 01/19/19 History (DRISDOL)] Finasteride [Proscar] 5 mg PO DAILY 12/02/14 01/19/19 History Levothyroxine Sodium [Synthroid] 50 mcg PO DAILY 12/02/14 01/19/19 History [place]-3 Fatty Acids/Fish Oil [Fish 2 cap PO BID 12/02/14 01/19/19 History Oil 1,000 mg Softgel] Pravastatin Sodium [Pravachol] 80 mg PO HS 12/02/14 01/19/19 History Sertraline [Zoloft] 200 mg PO DAILY 12/02/14 01/19/19 History Tamsulosin [Flomax] 0.8 mg PO HS 12/02/14 01/19/19 History Ziprasidone [Geodon] 20 mg PO TID 12/02/14 01/19/19 History carBAMazepine [TEGretol] 400 mg PO TID 12/02/14 01/19/19 History Clopidogrel Bisulfate [Plavix] 75 mg PO DAILY #20 tab 10/01/15 01/19/19 Rx Gemfibrozil [Lopid] 600 mg PO BID 12/21/16 01/19/19 History Multivitamins, Thera [Multivitamin 1 tab PO DAILY 12/21/16 01/19/19 History (formulary)] Ranitidine HCl [Zantac] 300 mg PO HS 07/01/17 01/19/19 History metFORMIN HCL 1,000 mg PO BID 03/06/18 01/19/19 History Albuterol Sulfate [Proair Hfa] 2 puff INHALATION RT-Q4H PRN 08/20/18 01/19/19 History Carvedilol [Coreg] 12.5 mg PO BID 08/20/18 01/19/19 History Diclofenac Sodium Gel [Voltaren 1 applic TOPICAL BID PRN 08/20/18 01/19/19 History Gel] Fluticasone Nasal [place] [Flonase 1 spray EA NOSTRIL BID 08/20/18 01/19/19 History Nasal [place]] Insulin Glargine,Hum.rec.anlog 120 unit SQ HS 08/20/18 01/19/19 History [Lantus Solostar] amLODIPine [Norvasc] 10 mg PO DAILY 08/20/18 01/19/19 History Pregabalin [Lyrica] 100 mg PO TID PRN 09/18/18 01/19/19 History clonazePAM [KlonoPIN] 0.5 mg PO TID PRN 09/18/18 01/19/19 History Baclofen [Lioresal] 10 mg PO BID@0800,1300 10/21/18 01/19/19 History Baclofen [Lioresal] 20 mg PO HS 10/21/18 01/19/19 History Loratadine [Claritin] 10 mg PO DAILY 10/21/18 01/19/19 History Pantoprazole Sodium [Protonix] 40 mg PO BID 10/21/18 01/19/19 History Insulin Aspart [NovoLOG Flexpen] 40 units SQ AC-TID 01/04/19 01/19/19 History Insulin Aspart [NovoLOG Flexpen] See Protocol SQ AC-TID 01/04/19 01/19/19 History Lisinopril [Prinivil] 10 mg PO DAILY 01/04/19 01/19/19 History Mirabegron [Myrbetriq] 25 mg PO HS 01/04/19 01/19/19 History Carboxymethylcellulose Sodium 1 drop BOTH EYES QID 01/19/19 01/19/19 History [Refresh Tears] Petrolatum Eye Oint 1 applic BOTH EYES HS 01/19/19 01/19/19 History Ziprasidone [Geodon] 20 mg PO DAILY PRN 01/19/19 01/19/19 History Allergies Allergy/AdvReac Type Severity Reaction Status Date / Time aspirin Allergy ABDOMINAL Verified 01/19/19 08:31 DISCOMFORT etodolac [From Lodine] Allergy Unknown Verified 01/19/19 08:31 oxybutynin Allergy Unknown Verified 01/19/19 08:31 Physical Exam Vitals: Vital Signs Temp Pulse Pulse Resp BP BP Pulse Ox 01/19/19 08:58 72 01/19/19 08:47 75 20 96 01/19/19 07:00 98.4 F 74 18 137/62 95 01/19/19 02:07 98.1 F 87 18 144/74 97 01/19/19 01:30 97.9 F 68 19 146/71 95 01/19/19 00:31 60 01/19/19 00:23 60 01/19/19 00:00 61 20 132/72 96 01/18/19 23:00 64 18 133/67 98 01/18/19 21:31 62 20 130/60 97 01/18/19 20:27 98.2 F 58 L 22 125/58 95 Intake and Output 01/18/19 01/19/19 01/19/19 22:59 06:59 14:59 Intake Total 240 Balance 240 Intake: Oral 240 Other: Voiding Method Incontinent Incontinent # Voids 2 Weight 112.945 kg GENERAL EXAM: Alert, pleasant, obese 68-year-old white male on 2 L of oxygen with a pulse ox of 96% comfortable in no apparent distress. HEAD: Normocephalic/atraumatic. EYES: Normal reaction of pupils, equal size. Conjunctiva pink, sclera white. NOSE: Clear with pink turbinates. THROAT: No erythema or exudates. NECK: No masses, no JVD, no thyroid enlargement, no adenopathy. CHEST: No chest wall deformity. Symmetrical expansion. LUNGS: Equal air entry, diminished breath sounds at the bases, but no significant rhonchi or wheezing CVS: Regular rate and rhythm, normal S1 and S2, no gallops, no murmurs, no rubs ABDOMEN: Soft, nontender. No hepatosplenomegaly, normal bowel sounds, no guarding or rigidity. EXTREMITIES: No clubbing, no edema, no cyanosis, 2+ pulses and upper and lower extremities. MUSCULOSKELETAL: Muscle strength and tone normal. SPINE: No scoliosis or deformity SKIN: No rashes CENTRAL NERVOUS SYSTEM: Alert and oriented -3. No focal deficits, patient has weakness involving the bilateral lower extremities, and patient is unable to ambulate PSYCHIATRIC: Alert and oriented -3. Appropriate affect. Intact judgment and insight. Results - Laboratory Findings CBC and BMP: 01/18/19 21:17 01/18/19 21:17 PT/INR, D-dimer PT 10.6 sec (9.0-12.0) 01/18/19 21:17 INR 1.0 (<1.2) 01/18/19 21:17 D-Dimer 1.62 mg/L FEU (<0.60) H 01/18/19 21:17 Abnormal lab findings: Abnormal Labs 01/18/19 01/18/19 01/18/19 21:17 21:17 21:17 RBC 4.09 L Hgb 11.2 L Hct 32.6 L MCV 79.7 L RDW 16.6 H D-Dimer 1.62 H Potassium 5.5 H BUN 24 H Glucose 148 H POC Glucose (mg/dL) ALT 16 L Urine Protein Urine Mucus 01/18/19 01/19/19 01/19/19 23:15 06:59 11:42 RBC Hgb Hct MCV RDW D-Dimer Potassium BUN Glucose POC Glucose (mg/dL) 223 H 227 H ALT Urine Protein 1+ H Urine Mucus Rare H - Diagnostic Findings Chest x-ray: report reviewed, image reviewed CT scan - chest: report reviewed, image reviewed U/S of Legs: report reviewed, image reviewed Assessment and Plan Plan: Assessment: #1. Cough and mild dyspnea, possibly related to tracheobronchitis, chest x-ray is negative, and CTA chest showing mild pleural thickening and subsegmental atelectasis at the lung bases #2. Elevated d-dimer, and CTA chest showed no evidence of pulmonary embolism, venous Doppler ultrasound of lower extremities negative #3. Recent hospitalization for urinary tract infection related to E. coli, which appears to have cleared on this admission #4. History of urinary and bladder incontinence #5. Lower extremity weakness, chronic, and patient is unable to ambulate #6. History of COPD, although the patient is a lifetime nonsmoker, does have history of service in [place] #7. Obstructive sleep apnea on CPAP therapy #8. Morbid obesity #9. Diabetes mellitus type 2 with peripheral neuropathy #10. History of CVA/TIA #11. Straight of BPH #12. History of hiatal hernia repair 2, and patient has evidence of ventral hernia #13. Hypothyroidism #14. History of PTSD Plan: Continue with current treatment, patient is finishing his antibiotics, no fever or chills, no evidence of pneumonia on the chest x-ray, patient likely has case of tracheobronchitis, he is clinically stable, CTA chest and lower extremity Dopplers showed no evidence of thromboembolic disease. Continue breathing tr eatments, maintain aspiration precautions, will ask speech therapy to evaluate patient's swallow. We'll continue to follow I performed a history & physical examination of the patient and discussed their management with my nurse practitioner, Zeenat Shearer. I reviewed the nurse practitioner's note and agree with the documented findings and plan of care. Lung sounds are positive for scattered rhonchi throughout the lung mukherjee. The findings and the impression was discussed with the patient. I attest to the documentation by the nurse practitioner. Time with Patient: Greater than 30
[2019-01-19 14:55] VITALS: BMI 34.7
[2019-01-19 16:33] LABS: Glucose,Whole Blood 217 mg/dL (75-99)
[2019-01-19 20:10] LABS: Glucose,Whole Blood 251 mg/dL (75-99)
[2019-01-19] MEDS ORDERED: INSULIN DETEMIR (LEVEMIR) 100 UNIT/ML SYR SQ SCH (21:00)
[2019-01-19] MEDS ORDERED: NON FORMULARY DRUG (Mirabegron [Myrbetriq] 25 MG) PO SCH (21:00)
[2019-01-19] MEDS ORDERED: TAMSULOSIN 0.4 MG CAP.ER.24H PO SCH (21:00)
[2019-01-19] MEDS ORDERED: FAMOTIDINE 20 MG TAB PO SCH (21:00)
[2019-01-19] MEDS ORDERED: PRAVASTATIN SODIUM 80 MG TAB PO SCH (21:00)
[2019-01-20] MEDS: LEVOTHYROXINE 50 MCG TAB PO SCH (05:29)
[2019-01-20 07:13] LABS: Glucose,Whole Blood 122 mg/dL (75-99)
[2019-01-20 07:44] LABS: African American GFR (CKD) >90 (>60 ml/min/1.73 sqM); Anion Gap 14 mmol/L; Blood Urea Nitrogen 27 mg/dL (9-20); Calcium 10.1 mg/dL (8.4-10.2); Carbon Dioxide 27 mmol/L (22-30); Chloride 102 mmol/L (98-107); Glucose 123 mg/dL (74-99); Potassium 4.2 mmol/L (3.5-5.1); Sodium 143 mmol/L (137-145)
[2019-01-20 07:47] VITALS: BP 159/71; TEMP 98.2
[2019-01-20] MEDS: HEPARIN SODIUM,PORCINE 5,000 UNIT/ML 1 ML VIAL SQ SCH (08:07)
[2019-01-20] MEDS: amLODIPine 10 MG TAB PO SCH (08:08)
[2019-01-20] MEDS: CEFDINIR 300 MG CAP PO SCH (08:08)
[2019-01-20] MEDS: MULTIVITAMINS, THERA 1 EACH TAB PO SCH (08:08)
[2019-01-20] MEDS: guaiFENesin 600 MG TABLET.ER PO SCH (08:08)
[2019-01-20] MEDS: CLOPIDOGREL 75 MG TAB PO SCH (08:08)
[2019-01-20] MEDS: FINASTERIDE 5 MG TAB PO SCH (08:08)
[2019-01-20] MEDS: SERTRALINE 100 MG TAB PO SCH (08:08)
[2019-01-20] MEDS: predniSONE 20 MG TAB PO SCH (08:08)
[2019-01-20] MEDS: CARVEDILOL 12.5 MG TAB PO SCH (08:08)
[2019-01-20] MEDS: FENOFIBRATE 160 MG TAB PO SCH (08:08)
[2019-01-20] MEDS: ZIPRASIDONE 20 MG CAP PO SCH ×2 (08:09→13:06)
[2019-01-20] MEDS: carBAMazepine 200 MG TAB PO SCH (08:09)
[2019-01-20] MEDS: metFORMIN 500 MG TAB PO SCH (08:09)
[2019-01-20] MEDS: BUDESONIDE 0.5 MG/2 ML NEBU INHALATION SCH (08:13)
[2019-01-20] MEDS: IPRATROPIUM-ALBUTEROL 3 ML NEB INHALATION SCH ×2 (08:13→11:53)
[2019-01-20] MEDS: INSULIN ASPART (NovoLOG) 100 UNIT/ML VIAL SQ SCH ×2 (08:16→13:05)
--- NOTE | 2019-01-20 11:28 | P.PN ---
Subjective Progress Note Date: 01/20/19 Principal diagnosis: Acute tracheobronchitis This is a 68-year-old white male patient who follows with Lori Loyola PA-C, from [facility], with past medical history of COPD, on home oxygen, previous history of CVA/TIA, diabetes mellitus type 2, history of PE and DVT currently not on anticoagulation, hypertension, myocardial infarction, sleep apnea on CPAP therapy, morbid obesity, history of peripheral neuropathy, gait dysfunction, and patient is unable to ambulate, history of chronic pain, who was recently hospitalized for a urinary tract infection related to E. coli and was discharged home on 01/07/2019 on oral course of antibiotics. Patient presented to the [facility] department on 01/18/2019 with complaints of increasing cough, and at times she is producing yellow colored sputum, and at times it's white, he also complained of mild dyspnea, but denied any chest pain, denied any fever, denied any chills, he is close to finishing his oral antibiotics. He complains of congested cough, and he states he thinks his lower extremities are somewhat more swollen than usual. Chest x-ray was taken and showed normal chest x-ray. Lab work was negative for any evidence of leukocytosis, white blood cell, 6.5, hemoglobin of 11.2, d-dimer was found to be elevated at 1.62, potassium was 5.5, and the rest of electrolytes were within normal limits with B1 is 24 creatinine 0.97, troponin was negative 1, proBNP was normal at 92, urinalysis showed no evidence of infection, influenza screen was negative. CTA chest was completed showing no evidence of pulmonary embolism and some minimal atelectasis at the lung bases. Venous Doppler ultrasound of lower extremities showed no evidence of DVT in the right or left leg. Patient is awake and alert, in no acute distre ss, lung sounds are diminished at the bases, no significant rhonchi or wheezing, he is on oral Cefdinir, Mucinex and breathing treatments. 01/20/2019 patient seen in follow-up on medical surgical floor. He is awake and alert, in no acute distress, still has occasional congested cough, and he states sometimes his sputum was yellow in color, but most time it is just white. There have been no fever or chills. No complaints of chest pain, his lung sounds are diminished, without any major wheezing or congestion, no fever or chills, Doppler ultrasounds of lower extremities show no evidence of DVT. CTA chest showed no evidence of pulmonary embolism and only minimal atelectasis at the lung bases. Vitals have been stable overnight, today's labs show normal electrolytes, B1 is 27 and creatinine 0.97. From pulmonary perspective patient could be considered for discharge home, and patient is requesting to go home today. We recommend outpatient follow-up in the office in 7-10 days, and gerardo ent will need outpatient PFT to quantify his lung function Objective - Vital Signs Vital signs: Vital Signs Temp 98.2 F 01/20/19 07:46 Pulse 84 01/20/19 08:29 Resp 16 01/20/19 07:46 BP 159/71 01/20/19 07:46 Pulse Ox 95 01/20/19 07:46 Intake & Output 01/19/19 01/20/19 01/20/19 18:59 06:59 18:59 Output Total 508 675 Balance -508 -675 Weight 112.945 kg Output: Urine 500 675 Stool 8 Other: Voiding Method Incontinent Incontinent # Voids 5 - Exam GENERAL EXAM: Alert, pleasant, obese 68-year-old white male on 2 L of oxygen w ith a pulse ox of 96% comfortable in no apparent distress. HEAD: Normocephalic/atraumatic. EYES: Normal reaction of pupils, equal size. Conjunctiva pink, sclera white. NOSE: Clear with pink turbinates. THROAT: No erythema or exudates. NECK: No masses, no JVD, no thyroid enlargement, no adenopathy. CHEST: No chest wall deformity. Symmetrical expansion. LUNGS: Equal air entry, diminished breath sounds at the bases, but no significant rhonchi or wheezing CVS: Regular rate and rhythm, normal S1 and S2, no gallops, no murmurs, no rubs ABDOMEN: Soft, nontender. No hepatosplenomegaly, normal bowel sounds, no guarding or rigidity. EXTREMITIES: No clubbing, no edema, no cyanosis, 2+ pulses and upper and lower extremities. MUSCULOSKELETAL: Muscle strength and tone normal. SPINE: No scoliosis or deformity SKIN: No rashes CENTRAL NERVOUS SYSTEM: Alert and oriented -3. No focal deficits, patient has weakness involving the bilateral lower extremities, and patient is unable to ambulate PSYCHIATRIC: Alert and oriented -3. Appropriate affect. Intact judgment and insight. - Labs CBC & Chem 7: 01/18/19 21:17 01/20/19 06:59 Labs: Abnormal Lab Results - Last 24 Hours (Table) 01/19/19 01/19/19 01/19/19 Range/Units 11:42 16:31 19:59 BUN (9-20) mg/dL Glucose (74-99) mg/dL POC Glucose (mg/dL) 227 H 217 H 251 H (75-99) mg/dL 01/20/19 01/20/19 Range/Units 06:59 07:09 BUN 27 H (9-20) mg/dL Glucose 123 H (74-99) mg/dL POC Glucose (mg/dL) 122 H (75-99) mg/dL Assessment and Plan Plan: Assessment: #1. Cough and mild dyspnea, possibly related to tracheobronchitis, chest x-ray is negative, and CTA chest showing mild pleural thickening and subsegmental atelectasis at the lung bases #2. Elevated d-dimer, and CTA chest showed no evidence of pulmonary embolism, venous Doppler ultrasound of lower extremities negative #3. Recent hospitalization for urinary tract infection related to E. coli, which appears to have cleared on this admission #4. History of urinary and bladder incontinence #5. Lower extremity weakness, chronic, and patient is unable to ambulate #6. History of COPD, although the patient is a lifetime nonsmoker, does have history of service in [place] #7. Obstructive sleep apnea on CPAP therapy #8. Morbid obesity #9. Diabetes mellitus type 2 with peripheral neuropathy #10. History of CVA/TIA #11. Straight of BPH #12. History of hiatal hernia repair 2, and patient has evidence of ventral hernia #13. Hypothyroidism #14. History of PTSD Plan: Patient is stable, no acute events overnight, still has an occasional congested cough, but no acute distress, he can finish his course of antibiotics, he can finish prednisone taper, he can be discharged home today, he'll need outpatient follow-up with Dr. Carty in the office in 7-10 days, and he will need outpatient PFT to quantify his lung function. I performed a history & physical examination of the patient and discussed their management with my nurse practitioner, Zeenat Shearer. I reviewed the nurse practitioner's note and agree with the documented findings and plan of care. Lung sounds are positive for scattered rhonchi throughout the lung mukherjee. The findings and the impression was discussed with the patient. I attest to the documentation by the nurse practitioner. Time with Patient: Less than 30
[2019-01-20 11:31] VITALS: RESP 18
[2019-01-20 12:06] VITALS: PULSE 80
[2019-01-20 12:17] LABS: Glucose,Whole Blood 188 mg/dL (75-99)
[2019-01-20 15:30] LABS: Hemoglobin A1C 7.3 % (4.0-6.0)
--- NOTE | 2019-01-22 09:19 | P.DS ---
Providers Date of admission: 01/19/19 00:56 Expected date of discharge: 01/20/19 Attending physician: Kassie Das Consults: 01/19/19 01:01 Consult Physician Routine Consulting Provider: Laura Cerna Consult Reason/Comments: cough. COPD exacerbation. Do you want consulting provider notified?: Yes Primary care physician: [place] [facility] Course: 68-year-old gentleman came in with plaints ofshortness of breath found to have wheezing and patient was started on oral steroids patient is uses 2-3 L off oxygen denied any history of COPD in the past unsure why he is 724 7 at home. When I valid the patient patient is having minimal wheeze never had any history of asthma. Patient never had any pulmonary function testing patient although will benefit from thetest. Patient had a CAT scan which did not show any pulmonary embolism or pneumonia is some atelectasis. Patient is complaining of cough with some sputum production patient was started on Ceftin from outpatient clinic. He is doing well but patient serum potassium is bit elevated to 5.7 and if still received lisinopril today because of which I'll hold his discharge today and will get a pulmonology to evaluate the patient patient may have some restrictive lung disease and there is no interstitial lung disease evident on the CAT scan of the chest. We'll give him a dose of Kayexalate if his basic met abolic profile as an show any hyperkalemia patient will be discharged tomorrow with the discontinuation of lisinopril at least temporarily. 01/22/2019 Etiology of his bronchospasm is not from there is no evidence of COPD or asthma but patient will need pulmonary function testing patient was treated for bronchitis and shortness of breath and bronchospasm and patient will be discharged on a short course of steroids and antibiotics. Potassium has come down patient will be resumed on lisinopril and repeat basic metabolic profile will be obtained in about 3 days after discharge PHYSICAL EXAMINATION: GENERAL: The patient is alert and oriented x3, not in any acute distress. Well developed, well nourished. HEENT: Pupils are round and equally reacting to light. EOMI. No scleral icterus. No conjunctival pallor. Normocephalic, atraumatic. No pharyngeal erythema. No thyromegaly. CARDIOVASCULAR: S1 and S2 present. No murmurs, rubs, or gallops. PULMONARY: Chest is clear to auscultation, no wheezing or crackles. ABDOMEN: Soft, nontender, nondistended, normoactive bowel sounds. No palpable organomegaly. MUSCULOSKELETAL: No joint swelling or deformity. EXTREMITIES: No cyanosis, clubbing, or pedal edema. NEUROLOGICAL: Gross neurological examination did not reveal any focal deficits. SKIN: No rashes. Assessment and Plan Plan: -shortness of breath: Patient does have chronic obstructive disease never was diagnosed with asthma never smoked denied any COPD history patient will benefit from outpatient pulmonary function testing may be -type 2 diabetes mellitus patient will be continued on his home regimen -CVA/TIA in the past -DVT and PE in the past presently not on any anticoagulation -hyperlipidemia -Diabetic peripheral neuropathy -Obesity sleep apnea -Hypothyroidism -hypertension: Patient Condition at Discharge: Poor Plan - Discharge Summary Discharge Rx Participant: No New Discharge Prescriptions: New predniSONE 10 mg PO DAILY #30 tab Cefuroxime Axetil [Ceftin] 500 mg PO BID 3 Days #6 tab No Action Levothyroxine Sodium [Synthroid] 50 mcg PO DAILY carBAMazepine [TEGretol] 400 mg PO TID Finasteride [Proscar] 5 mg PO DAILY Ziprasidone [Geodon] 20 mg PO TID Sertraline [Zoloft] 200 mg PO DAILY Allopurinol [Zyloprim] 100 mg PO BID Ergocalciferol [Vitamin D2 (DRISDOL)] 100,000 unit PO Q7D Tamsulosin [Flomax] 0.8 mg PO HS Pravastatin Sodium [Pravachol] 80 mg PO HS [place]-3 Fatty Acids/Fish Oil [Fish Oil 1,000 mg Softgel] 2 cap PO BID Clopidogrel Bisulfate [Plavix] 75 mg PO DAILY #20 tab Multivitamins, Thera [Multivitamin (formulary)] 1 tab PO DAILY Gemfibrozil [Lopid] 600 mg PO BID Ranitidine HCl [Zantac] 300 mg PO HS metFORMIN HCL 1,000 mg PO BID Albuterol Sulfate [Proair Hfa] 2 puff INHALATION RT-Q4H PRN PRN Reason: Shortness Of Breath amLODIPine [Norvasc] 10 mg PO DAILY Carvedilol [Coreg] 12.5 mg PO BID Diclofenac Sodium Gel [Voltaren Gel] 1 applic TOPICAL BID PRN PRN Reason: Pain Fluticasone Nasal [place] [Flonase Nasal [place]] 1 spray EA NOSTRIL BID Insulin Glargine,Hum.rec.anlog [Lantus Solostar] 120 unit SQ HS clonazePAM [KlonoPIN] 0.5 mg PO TID PRN PRN Reason: ANXIETY Pregabalin [Lyrica] 100 mg PO TID PRN PRN Reason: NERVE PAIN Baclofen [Lioresal] 20 mg PO HS Baclofen [Lioresal] 10 mg PO BID@0800,1300 Loratadine [Claritin] 10 mg PO DAILY Pantoprazole Sodium [Protonix] 40 mg PO BID Insulin Aspart [NovoLOG Flexpen] See Protocol SQ AC-TID Insulin Aspart [NovoLOG Flexpen] 40 units SQ AC-TID Lisinopril [Prinivil] 10 mg PO DAILY Mirabegron [Myrbetriq] 25 mg PO HS Petrolatum Eye Oint 1 applic BOTH EYES HS Carboxymethylcellulose Sodium [Refresh Tears] 1 drop BOTH EYES QID Ziprasidone [Geodon] 20 mg PO DAILY PRN PRN Reason: MENTAL HEALTH Discharge Medication List Allopurinol [Zyloprim] 100 mg PO BID 12/02/14 [History] Ergocalciferol [Vitamin D2 (DRISDOL)] 100,000 unit PO Q7D 12/02/14 [History] Finasteride [Proscar] 5 mg PO DAILY 12/02/14 [History] Levothyroxine Sodium [Synthroid] 50 mcg PO DAILY 12/02/14 [History] [place]-3 Fatty Acids/Fish Oil [Fish Oil 1,000 mg Softgel] 2 cap PO BID 12/02/14 [History] Pravastatin Sodium [Pravachol] 80 mg PO HS 12/02/14 [History] Sertraline [Zoloft] 200 mg PO DAILY 12/02/14 [History] Tamsulosin [Flomax] 0.8 mg PO HS 12/02/14 [History] Ziprasidone [Geodon] 20 mg PO TID 12/02/14 [History] carBAMazepine [TEGretol] 400 mg PO TID 12/02/14 [History] Clopidogrel Bisulfate [Plavix] 75 mg PO DAILY #20 tab 10/01/15 [Rx] Gemfibrozil [Lopid] 600 mg PO BID 09/02/17 [History] Multivitamins, Thera [Multivitamin (formulary)] 1 tab PO DAILY 12/21/16 [History] Ranitidine HCl [Zantac] 300 mg PO HS 07/01/17 [History] metFORMIN HCL 1,000 mg PO BID 03/06/18 [History] Albuterol Sulfate [Proair Hfa] 2 puff INHALATION RT-Q4H PRN 08/20/18 [History] Carvedilol [Coreg] 12.5 mg PO BID 08/20/18 [History] Diclofenac Sodium Gel [Voltaren Gel] 1 applic TOPICAL BID PRN 08/20/18 [History] Fluticasone Nasal [place] [Flonase Nasal [place]] 1 spray EA NOSTRIL BID 08/20/18 [History] Insulin Glargine,Hum.rec.anlog [Lantus Solostar] 120 unit SQ HS 08/20/18 [History] amLODIPine [Norvasc] 10 mg PO DAILY 08/20/18 [History] Pregabalin [Lyrica] 100 mg PO TID PRN 09/18/18 [History] clonazePAM [KlonoPIN] 0.5 mg PO TID PRN 09/18/18 [History] Baclofen [Lioresal] 10 mg PO BID@0800,1300 10/21/18 [History] Baclofen [Lioresal] 20 mg PO HS 10/21/18 [History] Loratadine [Claritin] 10 mg PO DAILY 10/21/18 [History] Pantoprazole Sodium [Protonix] 40 mg PO BID 10/21/18 [History] Insulin Aspart [NovoLOG Flexpen] 40 units SQ AC-TID 01/04/19 [History] Insulin Aspart [NovoLOG Flexpen] See Protocol SQ AC-TID 01/04/19 [History] Lisinopril [Prinivil] 10 mg PO DAILY 01/04/19 [History] Mirabegron [Myrbetriq] 25 mg PO HS 01/04/19 [History] Carboxymethylcellulose Sodium [Refresh Tears] 1 drop BOTH EYES QID 01/19/19 [History] Petrolatum Eye Oint 1 applic BOTH EYES HS 01/19/19 [History] Ziprasidone [Geodon] 20 mg PO DAILY PRN 01/19/19 [History] Cefuroxime Axetil [Ceftin] 500 mg PO BID 3 Days #6 tab 01/20/19 [Rx] predniSONE 10 mg PO DAILY #30 tab 01/20/19 [Rx] Follow up Appointment(s)/Referral(s): Zachary Obrien MD [STAFF PHYSICIAN] - 02/10/19 2:30 pm (with Kathe Mcduffie) [facility]inic [Primary Care Provider] - 01/25/19 9:00 am Ambulatory/Diagnostic Orders: Basic Metabolic Panel [LAB.AMB] Time Frame: 3 Days, Location: None Selected Discharge Disposition: HOME SELF-CARE
== END 2019-01-20 15:17 | disposition home or self-care (01) ==
LOC: EC 20:19 → 4SSUR 01-19 00:56
PROVIDERS: ADMIT Hospitalist; ATTEND Hospitalist
DX: J44.1 Chronic obstructive pulmonary disease with (acute) exacerbation (principal); J44.0 Chronic obstructive pulmonary disease with (acute) lower respiratory infection; J20.9 Acute bronchitis, unspecified; I11.0 Hypertensive heart disease with heart failure; I50.9 Heart failure, unspecified; E87.5 Hyperkalemia; T46.4X5A Adverse effect of angiotensin-converting-enzyme inhibitors, initial encounter; E03.9 Hypothyroidism, unspecified; E11.42 Type 2 diabetes mellitus with diabetic polyneuropathy; E78.5 Hyperlipidemia, unspecified; R79.89 Other specified abnormal findings of blood chemistry; K21.9 Gastro-esophageal reflux disease without esophagitis; I69.328 Other speech and language deficits following cerebral infarction; I69.398 Other sequelae of cerebral infarction; G47.33 Obstructive sleep apnea (adult) (pediatric); F31.9 Bipolar disorder, unspecified; F43.10 Post-traumatic stress disorder, unspecified; M10.9 Gout, unspecified; G89.29 Other chronic pain; M54.9 Dorsalgia, unspecified; K43.9 Ventral hernia without obstruction or gangrene; E66.01 Morbid (severe) obesity due to excess calories; Z68.34 Body mass index [BMI] 34.0-34.9, adult; N40.1 Benign prostatic hyperplasia with lower urinary tract symptoms; N39.498 Other specified urinary incontinence; I25.2 Old myocardial infarction; R26.9 Unspecified abnormalities of gait and mobility; R29.6 Repeated falls; Z99.89 Dependence on other enabling machines and devices; Z99.81 Dependence on supplemental oxygen; Z79.890 Hormone replacement therapy; Z79.4 Long term (current) use of insulin; Z79.02 Long term (current) use of antithrombotics/antiplatelets; Z79.899 Other long term (current) drug therapy; Z88.6 Allergy status to analgesic agent; Z88.8 Allergy status to other drugs, medicaments and biological substances; Z86.711 Personal history of pulmonary embolism; Z86.718 Personal history of other venous thrombosis and embolism; Z87.19 Personal history of other diseases of the digestive system; Z86.19 Personal history of other infectious and parasitic diseases; Z86.010 Personal history of colon polyps; Z87.440 Personal history of urinary (tract) infections; Z80.1 Family history of malignant neoplasm of trachea, bronchus and lung; Z80.52 Family history of malignant neoplasm of bladder
CPT/HCPCS: 96372 ×2; 99285; 36415; 94640 ×3; 94760; 93005; 92610; 85379; 83880; 80053; 80048; 83605; 84484; 85025; 85610; 85730; 81001; 87502; 83036; 71046; 93970; 71275; G0378 ×2; S0138 ×2; J1644 ×2; J7512 ×2; Q9967

== ENCOUNTER → 2019-03-08 | Outpatient (CLI) | payer OTHER ==
--- NOTE | 2019-03-08 14:31 | US ---
EXAMINATION TYPE: US thyroid st tissue head/neck DATE OF EXAM: 03/08/2019 COMPARISON: NONE CLINICAL HISTORY: 69-year-old male R94.6 Abnormal results of thyroid function studies. On thyroid med s. TECHNIQUE: Multiple sonographic images of the thyroid gland are obtained. FINDINGS: Immigration Associate notes:patient scanned while sitting in wheelchair GLAND SIZE: Right Lobe: 3.6 x 1.4 x 1.8 cm Overall Parenchyma: heterogenous Left Lobe: 3.5 x 1.2 x 1.4 cm Overall Parenchyma: heterogeneous Isthmus Thickness: 0.3 cm NODULES RIGHT: # of nodules measured on right: 1 1. 0.9 X 0.7 x 0.6 cm hypoechoic nodule at the mid pole with well-defined margins. This nodule is wider than tall and shows intranodular vascularity. Prior size: No prior LEFT: # of nodules measured on left: 2 1. 0.6 X 0.6 x 0.6 cm solid nodule at the mid/lower pole with well-defined margins. This nodule is wide as tall and shows no intranodular vascularity. Prior size: No prior 2. 0.6 X 0.7 x 0.6 cm solid nodule with central cystic component at the lower pole with well-defined margins. This nodule is wider than tall and shows no intranodular vascularity. Prior size: No prior ISTHMUS: # of nodules measured in the isthmus: 0 Bilateral neck scanned, no evidence of lymphadenopathy. IMPRESSION: Single 9 mm solid nodule on the right and 2 nodules on the left measuring up to 7 mm. Follow-up can b e considered.
== END | disposition home or self-care (01) ==
LOC: RADUSWWP 10:16
DX: R91.1 Solitary pulmonary nodule (principal); Z88.1 Allergy status to other antibiotic agents; Z88.8 Allergy status to other drugs, medicaments and biological substances; Z88.6 Allergy status to analgesic agent
CPT/HCPCS: 76536

== ENCOUNTER → 2019-03-19 | Outpatient (CLI) | payer OTHER ==
--- NOTE | 2019-03-19 14:12 | CT ---
EXAMINATION TYPE: CT abdomen pelvis wo con DATE OF EXAM: 03/19/2019 HISTORY: Diverticulitis per order. CT DLP: 1317.5 mGycm. Automated Exposure Control for Dose Reduction was Utilized. TECHNIQUE: CT scan of the abdomen and pelvis is performed without oral or IV contrast. COMPARISON: CT abdomen and pelvis March 09, 2018 FINDINGS: Within the limitations of a non-contrast study, the following observations are made. LUNG BASES: Patchy lateral left basilar linear scarring and/or atelectasis. Calcification at level of aortic valve. LIVER/GB: Small dependent gallstones in gallbladder. PANCREAS: No significant abnormality is seen. SPLEEN: No significant abnormality is seen. ADRENALS: No significant abnormality is seen. KIDNEYS: Cortical thinning with scattered simple-appearing thin-walled cysts throughout both kidneys. Finding consistent with products of chronic medical renal disease. No renal calculi or hydronephrosi s bilaterally. BOWEL: Oral contrast reaches level of the terminal ileum. No suspicious small or large bowel dilatati on. Somewhat redundant sigmoid colon. No significant diverticulosis or acute diverticulitis. Normal-a ppearing appendix extending from cecum in the right lower quadrant. GENITAL ORGANS: Normal-sized prostate with adjacent surgical clips and scattered phleboliths. LYMPH NODES: No greater than 1cm abdominal or pelvic lymph nodes are appreciated. OSSEOUS STRUCTURES: Slight dextroconvex scoliotic curvature centered at L3 level. Mild disc space aileen rowing with vacuum disc phenomenon L5-S1 level. Mild to moderate narrowing and spurring of both hip j oints. OTHER: Surgical coils from prior ventral wall hernia repair surgery left mid abdomen. Bowel and overl melinda curvilinear density extending to nearly skin surface without recurrent hernia defect. Stable sma ll left greater than right bilateral fat-containing hernias. IMPRESSION: No diverticulosis or acute diverticulitis. No new or acute findings are evident.
== END | disposition home or self-care (01) ==
LOC: RADCTMAIN 12:13
PROVIDERS: ATTEND Surgery Plastic and Reconstructive Surgery
DX: K57.92 Diverticulitis of intestine, part unspecified, without perforation or abscess without bleeding (principal)
CPT/HCPCS: 74176

== ENCOUNTER 2019-04-24 12:28 | Inpatient (IN) | payer OTHER, MEDICARE ==
[2019-04-24] MEDS ORDERED: SODIUM CHLORIDE 0.9% 1,000 ML IV STA (13:04)
--- NOTE | 2019-04-24 13:07 | ED ---
General Adult HPI - General Stated complaint: Weakness, fall Time Seen by Provider: 04/24/19 12:32 Source: patient, RN notes reviewed Mode of arrival: EMS Limitations: no limitations - History of Present Illness Initial comments: Patient is a pleasant 69-year-old male presenting to the emergency Department with generalized weakness. Symptoms have been occurring for the past several days. Patient states he does have frequent urinary tract infections. Patient states weakness is generalized and not isolated to any region. No confusion. No shortness of breath. No fevers. No abdominal pain. Patient states this does occur occasionally with him however he agrees it is been more recently. Patient denies any significant injury. - Related Data Home Medications Medication Instructions Recorded Confirmed Allopurinol [Zyloprim] 100 mg PO BID 12/02/14 01/19/19 Ergocalciferol [Vitamin D2 100,000 unit PO Q7D 12/02/14 01/19/19 (DRISDOL)] Finasteride [Proscar] 5 mg PO DAILY 12/02/14 01/19/19 Levothyroxine Sodium [Synthroid] 50 mcg PO DAILY 12/02/14 01/19/19 [place]-3 Fatty Acids/Fish Oil [Fish 2 cap PO BID 12/02/14 01/19/19 Oil 1,000 mg Softgel] Pravastatin Sodium [Pravachol] 80 mg PO HS 12/02/14 01/19/19 Sertraline [Zoloft] 200 mg PO DAILY 12/02/14 01/19/19 Tamsulosin [Flomax] 0.8 mg PO HS 12/02/14 01/19/19 Ziprasidone [Geodon] 20 mg PO TID 12/02/14 01/19/19 carBAMazepine [TEGretol] 400 mg PO TID 12/02/14 01/19/19 Gemfibrozil [Lopid] 600 mg PO BID 12/21/16 01/19/19 Multivitamins, Thera [Multivitamin 1 tab PO DAILY 12/21/16 01/19/19 (formulary)] Ranitidine HCl [Zantac] 300 mg PO HS 07/01/17 01/19/19 metFORMIN HCL 1,000 mg PO BID 03/06/18 01/19/19 Albuterol Sulfate [Proair Hfa] 2 puff INHALATION RT-Q4H PRN 08/20/18 01/19/19 Carvedilol [Coreg] 12.5 mg PO BID 08/20/18 01/19/19 Diclofenac Sodium Gel [Voltaren 1 applic TOPICAL BID PRN 08/20/18 01/19/19 Gel] Fluticasone Nasal [place] [Flonase 1 spray EA NOSTRIL BID 08/20/18 01/19/19 Nasal [place]] Insulin Glargine,Hum.rec.anlog 120 unit SQ HS 08/20/18 01/19/19 [Lantus Solostar] amLODIPine [Norvasc] 10 mg PO DAILY 08/20/18 01/19/19 Pregabalin [Lyrica] 100 mg PO TID PRN 09/18/18 01/19/19 clonazePAM [KlonoPIN] 0.5 mg PO TID PRN 09/18/18 01/19/19 Baclofen [Lioresal] 10 mg PO BID@0800,1300 10/21/18 01/19/19 Baclofen [Lioresal] 20 mg PO HS 10/21/18 01/19/19 Loratadine [Claritin] 10 mg PO DAILY 10/21/18 01/19/19 Pantoprazole Sodium [Protonix] 40 mg PO BID 10/21/18 01/19/19 Insulin Aspart [NovoLOG Flexpen] 40 units SQ AC-TID 01/04/19 01/19/19 Insulin Aspart [NovoLOG Flexpen] See Protocol SQ AC-TID 01/04/19 01/19/19 Lisinopril [Prinivil] 10 mg PO DAILY 01/04/19 01/19/19 Mirabegron [Myrbetriq] 25 mg PO HS 01/04/19 01/19/19 Carboxymethylcellulose Sodium 1 drop BOTH EYES QID 01/19/19 01/19/19 [Refresh Tears] Petrolatum Eye Oint 1 applic BOTH EYES HS 01/19/19 01/19/19 Ziprasidone [Geodon] 20 mg PO DAILY PRN 01/19/19 01/19/19 Previous Rx's Medication Instructions Recorded Clopidogrel Bisulfate [Plavix] 75 mg PO DAILY #20 tab 10/01/15 Cefuroxime Axetil [Ceftin] 500 mg PO BID 3 Days #6 tab 01/20/19 predniSONE 10 mg PO DAILY #30 tab 01/20/19 Allergies Allergy/AdvReac Type Severity Reaction Status Date / Time aspirin Allergy ABDOMINAL Verified 01/19/19 08:31 DISCOMFORT etodolac [From Lodine] Allergy Unknown Verified 01/19/19 08:31 oxybutynin Allergy Unknown Verified 01/19/19 08:31 Review of Systems ROS Statement: Those systems with pertinent positive or pertinent negative responses have been documented in the HPI. ROS Other: All systems not noted in ROS Statement are negative. Constitutional: Denies: fever Eyes: Denies: eye pain ENT: Denies: ear pain Respiratory: Denies: cough, dyspnea Cardiovascular: Denies: chest pain Endocrine: Denies: fatigue Gastrointestinal: Denies: abdominal pain Genitourinary: Denies: dysuria Musculoskeletal: Denies: back pain Skin: Denies: rash Neurological: Reports: as per HPI. Denies: headache Past Medical History Past Medical History: COPD, CVA/TIA, Diabetes Mellitus, Deep Vein Thrombosis (DVT), GERD/Reflux, Hypertension, Myocardial Infarction (SD), Prostate Disorder, Pulmonary Embolus (PE), Sleep Apnea/CPAP/BIPAP, Thyroid Disorder Additional Past Medical History / Comment(s): Morbid obesity, obstructive sleep apnea uses CPAP-uses O2 at 5 L during night with cpap, uses 3 liters nasal cannula at home continuous, SOB,history of peripheral neuropathy severe associated related to diabetes mellitus, gait dysfunction and frequent falls-u ses w/c-able to stand to transfer, chronic back pain, gout, BPH, TIA/CVA-loyda arm and leg weakness, previous history of C. diff colitis back in 2010,hypothyroidism,colon polyps, per speech is garbled/slurred which is the residual from old stroke Last Myocardial Infarction Date:: 2010 History of Any Multi-Drug Resistant Organisms: None Reported Date of last positivie culture/infection: None MDRO Source:: None Past Surgical History: Hernia Repair Additional Past Surgical History / Comment(s): hiatal hernia repair x 2, umbilical hernia repair,2nd digit rt hand amputated Past Anesthesia/Blood Transfusion Reactions: No Reported Reaction Past Psychological History: Bipolar, Depression, PTSD Smoking Status: Never smoker Past Alcohol Use History: None Reported Past Drug Use History: None Reported - Past Family History Father Family Medical History: Cancer Additional Family Medical History / Comment(s): lung Mother Family Medical History: Cancer Additional Family Medical History / Comment(s): bladder General Exam Limitations: no limitations General appearance: alert, in no apparent distress Head exam: Present: atraumatic Eye exam: Present: normal appearance, PERRL, EOMI. Absent: nystagmus ENT exam: Present: normal oropharynx Neck exam: Present: normal inspection. Absent: tenderness, meningismus Respiratory exam: Present: normal lung sounds bilaterally Cardiovascular Exam: Present: regular rate, normal rhythm GI/Abdominal exam: Present: soft. Absent: tenderness Extremities exam: Present: normal inspection, full ROM. Absent: pedal edema, calf tenderness Neurological exam: Present: alert, CN II-XII intact. Absent: motor sensory deficit Expanded Neurological exam: Present: protecting the airway Speech: Present: fluid speech Cranial nerves: EOM's Intact: Normal Motor strength exam: RUE: 5, LUE: 5, RLE: 5, LLE: 5 Eye Response: (4) open spontaneously Motor Response: (6) obeys commands Verbal Response: (5) oriented Psychiatric exam: Present: normal affect, normal mood Skin exam: Present: normal color Course Vital Signs 04/24/19 13:03 Temperature 97.9 F Pulse Rate 63 Respiratory 20 Rate Blood Pressure 144/64 O2 Sat by Pulse 97 Oximetry EKG Findings - EKG Comments: EKG Findings:: Sinus rhythm at 66. For screening AV block IL of 218. QRS 110. QT 426. QTc 446. Left axis. Incomplete right bundle-branch block. Nonspecific T waves. Medical Decision Making - Medical Decision Making Patient reevaluated and resting comfortably in bed. Patient did have difficulty getting up and transferring. Case was discussed with Dr. Cyr, who will admit for this va Patient. - Lab Data Result diagrams: 04/24/19 13:11 04/24/19 13:11 Lab Results 04/24/19 04/24/19 04/24/19 Range/Units 13:11 13:11 13:11 WBC 5.1 (3.8-10.6) k/uL RBC 3.93 L (4.30-5.90) m/uL Hgb 10.7 L (13.0-17.5) gm/dL Hct 32.3 L (39.0-53.0) % MCV 82.2 (80.0-100.0) fL MCH 27.3 (25.0-35.0) pg MCHC 33.2 (31.0-37.0) g/dL RDW 15.7 H (11.5-15.5) % Plt Count 127 L (150-450) k/uL Neutrophils % 69 % Lymphocytes % 22 % Monocytes % 5 % Eosinophils % 1 % Basophils % 0 % Neutrophils # 3.5 (1.3-7.7) k/uL Lymphocytes # 1.1 (1.0-4.8) k/uL Monocytes # 0.3 (0-1.0) k/uL Eosinophils # 0.1 (0-0.7) k/uL Basophils # 0.0 (0-0.2) k/uL PT (9.0-12.0) sec INR (<1.2) APTT (22.0-30.0) sec Sodium 143 (137-145) mmol/L Potassium 4.7 (3.5-5.1) mmol/L Chloride 111 H (98-107) mmol/L Carbon Dioxide 23 (22-30) mmol/L Anion Gap 9 mmol/L BUN 28 H (9-20) mg/dL Creatinine 1.06 (0.66-1.25) mg/dL Est GFR (CKD-EPI)AfAm 82 (>60 ml/min/1.73 sqM) Est GFR (CKD-EPI)NonAf 71 (>60 ml/min/1.73 sqM) Glucose 171 H (74-99) mg/dL Plasma Lactic Acid Anthony 1.3 (0.7-2.0) mmol/L Calcium 9.1 (8.4-10.2) mg/dL Phosphorus 3.6 (2.5-4.5) mg/dL Magnesium 2.1 (1.6-2.3) mg/dL Total Bilirubin 0.3 (0.2-1.3) mg/dL AST 36 (17-59) U/L ALT 16 (4-49) U/L Alkaline Phosphatase 83 (38-126) U/L Creatine Kinase 137 (55-170) U/L Troponin I (0.000-0.034) ng/mL NT-Pro-B Natriuret Pep pg/mL Total Protein 7.0 (6.3-8.2) g/dL Albumin 4.2 (3.5-5.0) g/dL TSH 1.500 (0.465-4.680) mIU/L Free T4 0.72 L (0.78-2.19) ng/dL Free T3 pg/mL 3.4 (2.8-5.3) pg/ml Urine Color Urine Appearance (Clear) Urine pH (5.0-8.0) Ur Specific [place] (1.001-1.035) Urine Protein (Negative) Urine Glucose (UA) (Negative) Urine Ketones (Negative) Urine Blood (Negative) Urine Nitrite (Negative) Urine Bilirubin (Negative) Urine Urobilinogen (<2.0) mg/dL Ur Leukocyte Esterase (Negative) Urine WBC (0-5) /hpf Urine Mucus (None) /hpf 04/24/19 04/24/19 04/24/19 Range/Units 13:11 13:11 13:11 WBC (3.8-10.6) k/uL RBC (4.30-5.90) m/uL Hgb (13.0-17.5) gm/dL Hct (39.0-53.0) % MCV (80.0-100.0) fL MCH (25.0-35.0) pg MCHC (31.0-37.0) g/dL RDW (11.5-15.5) % Plt Count (150-450) k/uL Neutrophils % % Lymphocytes % % Monocytes % % Eosinophils % % Basophils % % Neutrophils # (1.3-7.7) k/uL Lymphocytes # (1.0-4.8) k/uL Monocytes # (0-1.0) k/uL Eosinophils # (0-0.7) k/uL Basophils # (0-0.2) k/uL PT 10.7 (9.0-12.0) sec INR 1.0 (<1.2) APTT 28.2 (22.0-30.0) sec Sodium (137-145) mmol/L Potassium (3.5-5.1) mmol/L Chloride (98-107) mmol/L Carbon Dioxide (22-30) mmol/L Anion Gap mmol/L BUN (9-20) mg/dL Creatinine (0.66-1.25) mg/dL Est GFR (CKD-EPI)AfAm (>60 ml/min/1.73 sqM) Est GFR (CKD-EPI)NonAf (>60 ml/min/1.73 sqM) Glucose (74-99) mg/dL Plasma Lactic Acid Anthony (0.7-2.0) mmol/L Calcium (8.4-10.2) mg/dL Phosphorus (2.5-4.5) mg/dL Magnesium (1.6-2.3) mg/dL Total Bilirubin (0.2-1.3) mg/dL AST (17-59) U/L ALT (4-49) U/L Alkaline Phosphatase (38-126) U/L Creatine Kinase (55-170) U/L Troponin I <0.012 (0.000-0.034) ng/mL NT-Pro-B Natriuret Pep pg/mL Total Protein (6.3-8.2) g/dL Albumin (3.5-5.0) g/dL TSH (0.465-4.680) mIU/L Free T4 (0.78-2.19) ng/dL Free T3 pg/mL (2.8-5.3) pg/ml Urine Color Yellow Urine Appearance Clear (Clear) Urine pH 5.5 (5.0-8.0) Ur Specific [place] 1.015 (1.001-1.035) Urine Protein 1+ H (Negative) Urine Glucose (UA) Negative (Negative) Urine Ketones Negative (Negative) Urine Blood Negative (Negative) Urine Nitrite Negative (Negative) Urine Bilirubin Negative (Negative) Urine Urobilinogen <2.0 (<2.0) mg/dL Ur Leukocyte Esterase Negative (Negative) Urine WBC <1 (0-5) /hpf Urine Mucus Rare H (None) /hpf 04/24/19 Range/Units 13:11 WBC (3.8-10.6) k/uL RBC (4.30-5.90) m/uL Hgb (13.0-17.5) gm/dL Hct (39.0-53.0) % MCV (80.0-100.0) fL MCH (25.0-35.0) pg MCHC (31.0-37.0) g/dL RDW (11.5-15.5) % Plt Count (150-450) k/uL Neutrophils % % Lymphocytes % % Monocytes % % Eosinophils % % Basophils % % Neutrophils # (1.3-7.7) k/uL Lymphocytes # (1.0-4.8) k/uL Monocytes # (0-1.0) k/uL Eosinophils # (0-0.7) k/uL Basophils # (0-0.2) k/uL PT (9.0-12.0) sec INR (<1.2) APTT (22.0-30.0) sec Sodium (137-145) mmol/L Potassium (3.5-5.1) mmol/L Chloride (98-107) mmol/L Carbon Dioxide (22-30) mmol/L Anion Gap mmol/L BUN (9-20) mg/dL Creatinine (0.66-1.25) mg/dL Est GFR (CKD-EPI)AfAm (>60 ml/min/1.73 sqM) Est GFR (CKD-EPI)NonAf (>60 ml/min/1.73 sqM) Glucose (74-99) mg/dL Plasma Lactic Acid Anthony (0.7-2.0) mmol/L Calcium (8.4-10.2) mg/dL Phosphorus (2.5-4.5) mg/dL Magnesium (1.6-2.3) mg/dL Total Bilirubin (0.2-1.3) mg/dL AST (17-59) U/L ALT (4-49) U/L Alkaline Phosphatase (38-126) U/L Creatine Kinase (55-170) U/L Troponin I (0.000-0.034) ng/mL NT-Pro-B Natriuret Pep 49 pg/mL Total Protein (6.3-8.2) g/dL Albumin (3.5-5.0) g/dL TSH (0.465-4.680) mIU/L Free T4 (0.78-2.19) ng/dL Free T3 pg/mL (2.8-5.3) pg/ml Urine Color Urine Appearance (Clear) Urine pH (5.0-8.0) Ur Specific [place] (1.001-1.035) Urine Protein (Negative) Urine Glucose (UA) (Negative) Urine Ketones (Negative) Urine Blood (Negative) Urine Nitrite (Negative) Urine Bilirubin (Negative) Urine Urobilinogen (<2.0) mg/dL Ur Leukocyte Esterase (Negative) Urine WBC (0-5) /hpf Urine Mucus (None) /hpf - Radiology Data Radiology results: report reviewed (Computed tomography scan of the brain shows mild hydrocephalus that may be in part to cerebral atrophy. Otherwise no acute intercranial abnormality. Fluid in the mastoid air cells.), image reviewed (Chest x-ray shows some mild diffuse interstitial densities.) Disposition Clinical Impression: Dehydration Disposition: ADMITTED IP TO THIS HOSP Is patient prescribed a controlled substance at d/c from ED?: No Referrals: [facility],Clinic [Primary Care Provider] - 1-2 days Decision Time: 15:34
[2019-04-24 13:26] LABS: Basophils % (A) 0 %; Eosinophils # (A) 0.1 k/uL (0-0.7); Eosinophils % (A) 1 %; HCT 32.3 % (39.0-53.0); HGB 10.7 gm/dL (13.0-17.5); Lymphocytes # (A) 1.1 k/uL (1.0-4.8); Lymphocytes % (A) 22 %; MCH 27.3 pg (25.0-35.0); MCHC 33.2 g/dL (31.0-37.0); MCV 82.2 fL (80.0-100.0); Mean Platelet Volume 9.1; Monocytes # (A) 0.3 k/uL (0-1.0); Monocytes % (A) 5 %; Neutrophils # (A) 3.5 k/uL (1.3-7.7); Neutrophils % (A) 69 %; Platelet Count 127 k/uL (150-450); RBC 3.93 m/uL (4.30-5.90); RDW 15.7 % (11.5-15.5); WBC 5.1 k/uL (3.8-10.6)
[2019-04-24 13:35] LABS: Partial Thromboplastin Time 28.2 sec (22.0-30.0); Prothrombin Time 10.7 sec (9.0-12.0)
[2019-04-24 13:48] LABS: Albumin 4.2 g/dL (3.5-5.0); Calcium 9.1 mg/dL (8.4-10.2); Magnesium 2.1 mg/dL (1.6-2.3); Phosphorus 3.6 mg/dL (2.5-4.5); Potassium 4.7 mmol/L (3.5-5.1); Total Bilirubin 0.3 mg/dL (0.2-1.3)
[2019-04-24 14:04] LABS: T4, Free (Free Thyroxine) 0.72 ng/dL (0.78-2.19)
[2019-04-24 14:11] LABS: Appearance,Urine Clear (Clear); Bilirubin,Urine Negative (Negative); Blood,Urine Negative (Negative); Color,Urine Yellow; Glucose,Urine (UA) Negative (Negative); Ketones,Urine Negative (Negative); Leukocyte Esterase,Urine Negative (Negative); Mucus,Urine Rare /hpf; Nitrite,Urine Negative (Negative); PH, Urine 5.5 (5.0-8.0); Protein,Urine 1+ (Negative); Specific Gravity,Urine 1.015 (1.001-1.035); Urobilinogen,Urine <2.0 mg/dL (<2.0); WBC,Urine <1 /hpf (0-5)
--- NOTE | 2019-04-24 14:17 | XR ---
EXAMINATION TYPE: XR chest 2V DATE OF EXAM: 04/24/2019 COMPARISON: 01/18/2019 HISTORY: 69-year-old male with weakness TECHNIQUE: AP and lateral views FINDINGS: Heart upper limits of normal in size. Diffuse interstitial densities without charley consolidation or p leural effusion. IMPRESSION: Diffuse interstitial densities, possible bronchitis, asthma, or mild pulmonary vascular congestion.
--- NOTE | 2019-04-24 14:20 | CT ---
EXAMINATION TYPE: CT brain wo con DATE OF EXAM: 04/24/2019 COMPARISON: 08/22/2018 HISTORY: 69-year-old male weakness and pain TECHNIQUE: Examination was done in axial plane without intravenous contrast. Coronal and sagittal r econstructions performed. CT DLP: 1217.4 mGycm Automated exposure control for dose reduction was used. FINDINGS: There is no evidence of acute intracranial hemorrhage, acute ischemic changes, mass, mass-effect, or extra-axial fluid collection. There is no effacement of cerebral sulci or basal subarachnoid cister ns. Mild hydrocephalus with Israel's ratio calculated at 0.41. Relatively similar to prior exam. Partia lly empty sella. There is no midline shift. Rondon-white matter distinction is preserved. Partial opacification left mastoid air cells. Scattered mild mucosal thickening ethmoid air cells and trace posteriorly and medially along the left maxillary sinus. Orbits and globes appear intact. IMPRESSION: 1. Stable mild hydrocephalus may in part relate to central cerebral atrophy. Correlate for possible N PH. 2. Otherwise, no acute intracranial abnormality seen. 3. Trapped fluid in the left mastoid air cells. Correlate for any mastoid exclude mastoiditis.
[2019-04-24] MEDS ORDERED: NALOXONE 0.4 MG/ML 1 ML VIAL IV PRN (15:44)
[2019-04-24] MEDS ORDERED: SODIUM CHLORIDE 0.9% 1,000 ML IV SCH (15:45)
[2019-04-24 20:46] LABS: Glucose,Whole Blood 220 mg/dL (75-99)
[2019-04-24] MEDS ORDERED: ZIPRASIDONE 20 MG CAP PO PRN (21:12)
[2019-04-24] MEDS ORDERED: DICLOFENAC SODIUM GEL 100 GM TUBE TOPICAL PRN (21:12)
[2019-04-24] MEDS ORDERED: clonazePAM 0.5 MG TAB PO PRN (21:12)
[2019-04-24] MEDS ORDERED: NYSTATIN 100,000 UNIT/GM POWD 15 GM TOPICAL PRN (21:12)
[2019-04-24] MEDS ORDERED: IPRATROPIUM-ALBUTEROL 3 ML NEB INHALATION PRN (21:16)
[2019-04-24] MEDS ORDERED: ALPRAZolam 0.25 MG TAB PO PRN (21:17)
[2019-04-24] MEDS ORDERED: CARBOXYMETHYLCELLULOSE SODIUM BOTH EYES SCH (22:00)
[2019-04-24] MEDS: PIPERACILLIN-TAZOBACTAM 3.375 GM in SODIUM CHLORIDE 0.9% 100 ML IVPB SCH (22:03)
[2019-04-24] MEDS: FAMOTIDINE 20 MG TAB PO SCH (22:04)
[2019-04-24] MEDS: carBAMazepine 200 MG TAB PO SCH (22:05)
[2019-04-24] MEDS: ZIPRASIDONE 20 MG CAP PO SCH (22:05)
[2019-04-24] MEDS: HEPARIN SODIUM,PORCINE 5,000 UNIT/ML 1 ML VIAL SQ SCH (22:05)
[2019-04-24] MEDS: PREGABALIN 100 MG CAP PO SCH (22:05)
[2019-04-24] MEDS: INSULIN ASPART (NovoLOG) 100 UNIT/ML VIAL SQ SCH (22:06)
[2019-04-24] MEDS: INSULIN DETEMIR (LEVEMIR) 100 UNIT/ML SYR SQ SCH (22:37)
[2019-04-24] MEDS: metFORMIN 500 MG TAB PO SCH (22:37)
[2019-04-24] MEDS: BACLOFEN 10 MG TAB PO SCH (22:37)
--- NOTE | 2019-04-24 23:07 | HP ---
HISTORY AND PHYSICAL DATE OF SERVICE: 04/24/2019. CHIEF COMPLAINTS: Weakness and fall and shortness of breath. HISTORY OF PRESENT ILLNESS: This 69-year-old gentleman with a past medical history of multiple medical problems including history of COPD, history of diabetes mellitus, DVT, GERD, hypertension, history of myocardial infarction, pulmonary embolism, sleep apnea, morbid obesity, bipolar depression, PTSD, being followed by the [facility], Dr. Gutierrez in the outpatient setting was recently admitted with shortness of breath, COPD acute exacerbation. Patient subsequently was seen in [facility] and the patient improved significantly. Currently the patient is complaining of tiredness and weakness and the patient had a fall. The patient came to [facility] and was admitted to the hospital for further evaluation and treatment. The patient also complaining of significant shortness of breath, unable to complete even a sentence also at this time. A chest x-ray done on admission showed some increased bronchovascular markings with some interstitial densities. Pulmonary congestion was also considered. A NT proBNP was only 49. There is no history of fever, rigors or chills. No history of headache, loss of consciousness, seizures. Occasional cough is reported. PAST MEDICAL HISTORY: COPD, CVA, TIA, diabetes mellitus, DVT, GERD, hypertension, history of myocardial infarction, pulmonary embolism, sleep apnea, morbid obesity, obstructive sleep apnea. MEDICATIONS: Prior to admission include home medications are: 1. NovoLog a.c. t.i.d. 2. Metformin 1000 mg p.o. b.i.d. 3. Klonopin 0.5 mg t.i.d. p.r.n. 4. Tegretol 400 mg p.o. t.i.d. 5. Norvasc 10 mg daily. 6. Geodon 20 mg daily p.r.n. and 20 mg p.o. t.i.d. 7. Flomax 0.8 q.h.s. 8. Zoloft 200 mg p.o. daily. 9. Zantac 300 mg q.h.s. 10.Lyrica 100 mg p.o. t.i.d. 11.Pravachol 80 mg q.h.s. 12.Protonix 40 mg p.o. b.i.d. 13.[place]-3 fatty acids 2 tablets p.o. b.i.d. 14.Multivitamins one p.o. daily. 15.Myrbetriq 25 mg q.h.s. 16.Lotrimin 1 application b.i.d. p.r.n. 17.Claritin 10 mg p.o. daily. 18.Synthroid 50 mcg p.o. daily. 19.NovoLog 40 units subcu a.c. t.i.d. 20.Lantus 120 mg subcu b.i.d. 21.Lopid 600 mg b.i.d. 22.Flonase b.i.d. 23.Proscar 5 mg p.o. daily. 24.Vitamin D2 100,000 Q 7 days. 25.Voltaren. 26.Glucose. 27.Plavix 75 mg. 28.Coreg 12.5 mg p.o. b.i.d. 29.Refresh eye drops. 30.Lioresal 10 mg p.o. b.i.d. and 20 mg p.o. q.h.s. 31.Baclofen 10 mg daily p.r.n. 32.Artificial Tears. 33.Zyloprim 100 mg p.o. b.i.d. 34.ProAir 2 puffs q.4 p.r.n. ALLERGIES: ASPIRIN, LODINE, AND OXYBUTYNIN. FAMILY HISTORY: History of lung cancer. SOCIAL HISTORY: No history of smoking. No history of alcohol. REVIEW OF SYSTEMS: ENT: No diminished vision. No diminished hearing. CARDIOVASCULAR SYSTEM: As mentioned earlier. GI no nausea or vomiting. : No dysuria. CENTRAL NERVOUS SYSTEM: No numbness. Generalized weakness. ALLERGY/IMMUNOLOGY: No asthma or hayfever. MUSCULOSKELETAL as mentioned earlier. HEMATOLOGY/ONCOLOGY: No history of anemia. ENDOCRINE: No history of diabetes or hypothyroidism. CONSTITUTIONAL: As mentioned earlier. RHEUMATOLOGY: Negative. DERMATOLOGY: Negative. PSYCHIATRY as mentioned earlier. PHYSICAL EXAMINATION: Alert and oriented x3. Pulse is 64. Blood pressure 138/86, respirations 16, temperature 98 degrees, pulse ox 98% on room air. HEENT: Conjunctivae normal. Oral mucosa moist. NECK is no jugular venous distention. No carotid bruit. No lymph node enlargement. CARDIOVASCULAR SYSTEM: S1, S2 muffled. No S3, no S4. RESPIRATION: Breath sounds diminished in the bases. Bilateral scattered rhonchi and crackles. Expiratory wheezing also present. A few crackles heard in the bases. ABDOMEN: Soft, obese. Nontender. No mass palpable. LEGS: No edema. No swelling. NERVOUS SYSTEM: Higher functions as mentioned earlier. Moves all 4 limbs. No focal motor or sensory deficits. LYMPHATICS: No lymph nodes palpable in the neck, axillae or groin. SKIN: No ulcer, no rashes or no bleeding. JOINTS: No active deforming arthropathy. LABS: Labs are at this time shows: WBC 5.2, hemoglobin 10.7, platelets 127, glucose 171 and 220 and free T4 0.72. Influenza is negative. ASSESSMENT: 1. Chronic obstructive pulmonary disease acute exacerbation with possible right lower lobe pneumonia possibly aspiration possibly gram-negative. 2. Generalized gait dysfunction. 3. Anemia, normocytic anemia of chronic disease. 4. Thrombocytopenia. 5. History of cerebrovascular accident, transient ischemic attack. 6. Diabetes mellitus type 2. 7. History of deep vein thrombosis. 8. Gastroesophageal reflux disease. 9. Hypertension. 10.History of myocardial infarction. 11.History of pulmonary embolism. 12.History of obstructive sleep apnea. 13.History of hypothyroidism. 14.Morbid obesity with BMI of 36.3. 15.Obstructive sleep apnea, uses CPAP. 16.Chronic hypoxic respiratory failure on 3 L nasal cannula at home. 17.History of peripheral neuropathy, severe, associated with diabetes mellitus. 18.History of falls and gait dysfunction. 19.History of chronic back pain. 20.Gout. 21.Benign prostatic hypertrophy. 22.History of transient ischemic attack. 23.History of colonic polyps. 24.History of hernia repair. 25.Bipolar depression, post traumatic stress disorder. 26.FULL CODE. RECOMMENDATIONS AND DISCUSSION: In this 69-year-old gentleman who presented with multiple complex medical issues, we will monitor the patient closely, continue the current medications, management and symptomatic treatment. We will optimize the bronchodilator treatment, empiric antibiotics. Otherwise resume the home medications. Monitor blood sugars closely. DVT prophylaxis. Closely follow. We will consult surgery for hemorrhoids and as well as we will consult Dr. Urrutia for the evaluation of the lung problems. In any case, the patient has multiple complex medical issues as mentioned earlier with significant difficulties with weakness and gait dysfunction. Patient might benefit from a short stint of rehab. We will consult PT/OT evaluation and renal social worker and case management team also to work on that. Otherwise, we will continue to monitor. See orders for details. Prognosis guarded. Discussed with the patient. Discussed with staff. Further recommendations to follow. A copy of dictation being forwarded to Dr. Gutierrez at the [facility] in the outpatient patient. JENELLE / SARAH: [id number] /
[2019-04-25] MEDS: methylPREDNISolone SOD SUCCI 125 MG/2 ML VIAL IV SCH ×3 (00:31→13:39)
[2019-04-25] MEDS: BUDESONIDE 1 MG/2 ML NEBU INHALATION SCH ×2 (03:17→09:05)
[2019-04-25] MEDS: LEVOTHYROXINE 50 MCG TAB PO SCH (06:12)
[2019-04-25] MEDS: PIPERACILLIN-TAZOBACTAM 3.375 GM in SODIUM CHLORIDE 0.9% 100 ML IVPB SCH ×3 (06:12→21:31)
[2019-04-25 07:10] LABS: Glucose,Whole Blood 250 mg/dL (75-99)
[2019-04-25] MEDS ORDERED: INSULIN ASPART (NovoLOG) 100 UNIT/ML VIAL SQ SCH (07:30)
[2019-04-25 08:42] LABS: Basophils % (A) 0 %; Eosinophils % (A) 0 %; HCT 34.9 % (39.0-53.0); HGB 11.4 gm/dL (13.0-17.5); Hypochromasia Slight; Lymphocytes # (A) 0.7 k/uL (1.0-4.8); Lymphocytes % (A) 10 %; MCH 27.4 pg (25.0-35.0); MCHC 32.6 g/dL (31.0-37.0); Mean Platelet Volume 9.2; Monocytes # (A) 0.1 k/uL (0-1.0); Monocytes % (A) 2 %; Neutrophils # (A) 5.7 k/uL (1.3-7.7); Neutrophils % (A) 87 %; Platelet Count 127 k/uL (150-450); RBC 4.16 m/uL (4.30-5.90); RDW 15.7 % (11.5-15.5); WBC 6.5 k/uL (3.8-10.6)
[2019-04-25] MEDS: amLODIPine 10 MG TAB PO SCH (08:49)
[2019-04-25] MEDS: metFORMIN 500 MG TAB PO SCH ×2 (08:49→21:30)
[2019-04-25] MEDS: MULTIVITAMINS, THERA 1 EACH TAB PO SCH (08:49)
[2019-04-25] MEDS: carBAMazepine 200 MG TAB PO SCH ×3 (08:49→21:32)
[2019-04-25] MEDS: PREGABALIN 100 MG CAP PO SCH ×3 (08:49→21:29)
[2019-04-25] MEDS: PANTOPRAZOLE 40 MG TABLET PO SCH ×2 (08:50→21:29)
[2019-04-25] MEDS: CLOPIDOGREL 75 MG TAB PO SCH (08:50)
[2019-04-25] MEDS: FLUTICASONE 50MCG/SPRAY NASAL 16GM EA NOSTRIL SCH ×2 (08:50→21:30)
[2019-04-25] MEDS: FINASTERIDE 5 MG TAB PO SCH (08:50)
[2019-04-25] MEDS: FENOFIBRATE 160 MG TAB PO SCH (08:50)
[2019-04-25] MEDS: CARVEDILOL 12.5 MG TAB PO SCH ×2 (08:50→18:01)
[2019-04-25] MEDS: HEPARIN SODIUM,PORCINE 5,000 UNIT/ML 1 ML VIAL SQ SCH ×2 (08:50→21:30)
[2019-04-25] MEDS: LORATADINE 10 MG TAB PO SCH (08:50)
[2019-04-25] MEDS: BACLOFEN 10 MG TAB PO SCH ×3 (08:50→21:29)
[2019-04-25] MEDS: SERTRALINE 100 MG TAB PO SCH (08:50)
[2019-04-25] MEDS: ALLOPURINOL 100 MG TAB PO SCH ×2 (08:50→21:29)
[2019-04-25] MEDS: ZIPRASIDONE 20 MG CAP PO SCH ×3 (08:51→21:32)
[2019-04-25] MEDS: INSULIN ASPART (NovoLOG) 100 UNIT/ML VIAL SQ SCH ×7 (08:52→21:31)
[2019-04-25] MEDS ORDERED: metFORMIN 500 MG TAB PO SCH (09:00)
[2019-04-25] MEDS ORDERED: NON FORMULARY DRUG (Omega-3 Fatty Acids/Fish Oil [Fish Oil 1,000 Mg Softgel] 2 CAP) PO SCH (09:00)
[2019-04-25 09:06] LABS: Albumin 4.7 g/dL (3.5-5.0); Calcium 9.5 mg/dL (8.4-10.2); Total Bilirubin 0.4 mg/dL (0.2-1.3); Total Protein 7.9 g/dL (6.3-8.2)
[2019-04-25] MEDS: IPRATROPIUM-ALBUTEROL 3 ML NEB INHALATION SCH ×2 (09:06→14:38)
[2019-04-25 09:15] LABS: Potassium 6.2 mmol/L (3.5-5.1)
[2019-04-25 10:30] LABS: Potassium 6.5 mmol/L (3.5-5.1)
[2019-04-25] MEDS ORDERED: SODIUM BICARB 8.4% 50 ML SYR (1 MEQ/ML) IV ONE (10:43)
[2019-04-25] MEDS ORDERED: DEXTROSE 10 % IN WATER 250 ML IV ONE (10:43)
[2019-04-25] MEDS ORDERED: SODIUM POLYSTYRENE SULFONATE 15 GM/60 ML BOTTLE PO ONE (10:43)
[2019-04-25] MEDS ORDERED: INSULIN REGULAR 100 UNIT/ML VIAL IV ONE (10:43)
[2019-04-25] MEDS ORDERED: CALCIUM GLUCONATE 1 GM in SODIUM CHLORIDE 0.9% 100 ML IVPB ONE (11:00)
[2019-04-25 11:10] LABS: Glucose,Whole Blood 264 mg/dL (75-99)
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
--- NOTE | 2019-04-25 14:17 | CONS ---
CONSULTATION PULMONARY/CRITICAL CARE CONSULTATION: DATE OF SERVICE: 04/25/2019 This is a 69-year-old male who presents to the emergency department via EMS. He came in apparently with generalized weakness. He states he could not really get up and move about. The patient is pretty much confined to a wheelchair most of the time. The patient is thought to possibly have a urinary tract infection, which explains his generalized weakness. Anyway, we were consulted for a "COPD." The patient denies any respiratory issues. He denies any shortness of breath, difficulty breathing, coughing, wheezing or phlegm production. He states he has never smoked cigarettes in the past. Anyway, the patient is otherwise doing reasonably well. He does use oxygen but it is not clear to me as to why he uses oxygen. The patient denies chest pain or chest discomfort. He does as I mentioned above have a history of recurrent and frequent urinary tract infections. He seems pretty comfortable. He states to me that he does not have chronic lung disease. His medication list is rather extensive and includes a number of medications including Zyloprim, vitamin D2, Proscar, Synthroid, fish oil, Pravachol, Zoloft, Flomax, Geodon, Tegretol, Lopid, multivitamins, Zantac, metformin, albuterol inhaler, Coreg, Voltaren, Flonase nasal spray, insulin amlodipine, Lyrica, Klonopin, baclofen, loratadine, Protonix, insulin, Prinivil, Myrbetriq, Refresh Tears, eye ointment, Geodon, Plavix, Ceftin, and prednisone. . ALLERGIES: Include ASPIRIN, ETODOLAC AND OXYBUTYNIN. MEDICAL HISTORY: Includes a CVA, diabetes mellitus, deep venous thrombosis, GERD, hypertension, myocardial infarction, pulmonary embolism, sleep apnea syndrome, and hypothyroidism. He also suffers from morbid obesity, peripheral neuropathy, gait dysfunction, frequent falls, chronic back pain, gout, BPH, C difficile colitis, and colonic polyps. SURGICAL HISTORY: Includes hiatal hernia repair x2, umbilical hernia repair and right finger amputation. SOCIAL HISTORY: Significant that he is a lifelong nonsmoker. Denies any alcohol use or illicit drug use. FAMILY HISTORY: Positive for a father with lung cancer and mother with bladder cancer. REVIEW OF SYSTEMS: CONSTITUTIONAL: Weakness NEUROLOGIC: Negative. HEENT: Negative. CARDIOVASCULAR: Negative. PULMONARY: Negative. GI: Negative. : Negative. RHEUMATOLOGIC: Negative. IMMUNOLOGIC: Negative. ENDOCRINOLOGIC: Negative. DERMATOLOGIC: Negative. PHYSICAL EXAMINATION: Current vital signs are reviewed. Temperature is 97.1, heart rate is 75, respiratory rate 18, blood pressure 155/72, mean 99, 2 L saturation 96%. Appears in no acute distress. No respiratory distress. No audible wheezing, use of accessory muscles or conversational dyspnea. HEENT examination is grossly unremarkable. Nasal O2 in place. NECK: Supple full range of motion. No adenopathy. Neck veins are flat. CARDIOVASCULAR examination reveals regular rhythm and rate. Heart rate 75. S1, S2 normal. No S3, S4, or murmur. LUNGS: Reveal clear breath sounds. No wheezes, rhonchi, or crackles. Breath sounds are equal bilaterally. ABDOMEN: Obese. Bowel sounds are heard. EXTREMITIES are intact. Mild edema. SKIN: Without rash. NEUROLOGIC examination is difficult to assess. He does have significant lower extremity weakness greater than upper extremity weakness. LABS: Reviewed. White count ( ).5, hemoglobin 11.4, hematocrit 34.9, platelet count 127,000. Sodium 143, potassium 6.5, chloride 106, CO2 is 27, anion gap is 10. BUN and creatinine were 23 and 1.04, glucose 264. The rest of his labs look good. Microbiology is pending or negative. Chest x-ray shows some mild diffuse interstitial densities, which may relate to some vascular congestion. Influenza studies were negative. Urine was negative. ASSESSMENT: 1. Weakness of unclear etiology. No clear-cut evidence of infection at this time. Urine is clean, chest x-ray does not show pneumonia. 2. No evidence of pneumonia on chest x-ray nor clinically. 3. Previous history of cerebrovascular accident. 4. Lifelong nontobacco use. 5. History of gout. 6. Hypothyroidism. 7. Hyperlipidemia. 8. Diabetes mellitus. 9. Deep venous thrombosis. 10.Pulmonary embolism. 11.Gastroesophageal reflux disease. 12.Hypertension. 13.Myocardial infarction. 14.Multiple other medical problems and comorbidities as listed in medical history. PLAN: From the pulmonary standpoint, the patient is doing well. I am not clear as to why he uses oxygen, but he does not appear to have any intrinsic pulmonary disease. Chest x- ray does not show charley pneumonia. The patient states he never smoked cigarettes. He denies a history of COPD, emphysema, chronic bronchitis and asthma. The patient did have a rescue inhaler, although he states he does not use it. No additional recommendations are made. We will continue to follow. Prognosis is guarded. Initial workup is still underway. JENELLE / SARAH: [id number] /
[2019-04-25] MEDS ORDERED: ONDANSETRON 4 MG/2 ML VIAL IVP PRN (14:40)
[2019-04-25] MEDS ORDERED: TEMAZEPAM 15 MG CAP PO PRN (16:58)
[2019-04-25 16:59] LABS: Glucose,Whole Blood 131 mg/dL (75-99)
--- NOTE | 2019-04-25 16:59 | PN ---
PROGRESS NOTE DATE OF SERVICE: 04/25/2019 This 69-year-old gentleman who was admitted with weakness, also had COPD acute exacerbation with possible right lower lobe pneumonia. The patient also had hyperkalemia and some renal failure. The patient is being closely monitored. Dr. Urrutia is following the patient closely along with surgery. PAST MEDICAL HISTORY: Reviewed. REVIEW OF SYSTEMS: Cardiovascular system as mentioned earlier. RESPIRATORY: As mentioned earlier. GI: As mentioned earlier. no numbness or weakness. CENTRAL NERVOUS SYSTEM: No numbness or weakness. CURRENT MEDICATIONS ARE: Current medications are reviewed and include: 1. DuoNeb q.i.d. and p.r.n. 2. Zyloprim 100 mg p.o. b.i.d. 3. Xanax 0.5 t.i.d. 4. Norvasc 10 mg. 6. Tegretol 400 mg p.o. t.i.d. 7. Coreg 12.5 mg p.o. b.i.d. 8. Klonopin 0.5 mg t.i.d. p.r.n. 9. Plavix 75 mg. 10.Voltaren gel. 11.Vitamin D 100,000 p.o. Friday. 12.Pepcid 40 mg q.h.s. 13.Lofibra 160 mg p.o. daily. 14.Proscar 5 mg p.o. daily. 15.Flonase. 16.Heparin 5000 subcu. 18.Levemir subcu q.h.s. 19.Synthroid 50 mg. 20.Claritin 10 mg daily. 21.Glucophage 1000 mg p.o. b.i.d. 22.Multivitamins. 23.Narcan 0.2 q.2 p.r.n. 24.Myrbetriq 25 mg p.o. q.h.s. 25.Zofran. 26.Protonix. 27.Zosyn 3.375 IV q.8h. 28.Pravachol. 29.Lyrica. 30.Zoloft. 31.Geodon. PHYSICAL EXAM: Patient is alert, oriented x3. Pulse is 75. Blood pressure 150/72, respiration 18, temperature 97.7. Pulse ox 94% on 2 L. HEENT: Conjunctivae normal. NECK: No JVD. CARDIOVASCULAR: S1, S2 muffled. RESPIRATIONS: Breath sounds diminished in the bases. Scattered rhonchi and crackles. ABDOMEN: Soft, obese, nontender. LEGS are no edema. No swelling. CENTRAL NERVOUS SYSTEM: No focal deficits. LABS: WBC 6.2, hemoglobin 11.4, platelets are 127, potassium 6.5, glucose 274. ASSESSMENT: 1. Chronic obstructive pulmonary disease acute exacerbation with possible right lower lobe pneumonia, possibly aspiration, possibly gram-negative. 2. Severe hyperkalemia. 3. Generalized gait dysfunction. 4. Anemia, normocytic anemia of chronic disease. 5. Thrombocytopenia. 6. History of cerebrovascular accident, transient ischemic attack. 7. Diabetes type 2. 8. History of deep vein thrombosis. 9. History of gastroesophageal reflux disease. 10.Hypertension. 11.History of myocardial infarction. 12.History of pulmonary embolism. 13.History of obstructive sleep apnea. 14.History of hypothyroidism. 15.Morbid obesity with BMI of 36.3. 16.Obstructive sleep apnea uses CPAP. 17.Chronic hypoxic respiratory failure on 3 L nasal cannula. 18.History of peripheral neuropathy, severe, associated with diabetes type 2. 19.History of falls and gait dysfunction. 20.History of chronic back pain. 21.History of gout. 22.History of benign prostatic hypertrophy. 23.History of transient ischemic attack. 24.History of colonic polyps. 25.History of hernia repair. 26.Bipolar depression, posttraumatic stress disorder. 27.FULL CODE. RECOMMENDATIONS AND DISCUSSION: In this 69-year-old gentleman who presented with multiple complex medical issues, admitted with multiple medical problems, also has severe hyperkalemia. At this time, I recommend Kayexalate 30 g and insulin glucose regimen. Repeat labs. Repeat lytes in the evening. Otherwise, continue the rest of medications including bronchodilators and empiric antibiotics. Closely follow with Pulmonary. Further recommendations to follow. MMODL / IJN: [id number] / [facility] CAN[facility]ER CENTERVielka
[2019-04-25 20:19] LABS: Glucose,Whole Blood 112 mg/dL (75-99)
[2019-04-25] MEDS ORDERED: INSULIN DETEMIR (LEVEMIR) 100 UNIT/ML SYR SQ SCH (21:00)
[2019-04-25] MEDS ORDERED: BACLOFEN 10 MG TAB PO SCH (21:00)
[2019-04-25] MEDS: ARTIFICIAL TEARS OINTMENT 3.5 GM TUBE BOTH EYES SCH (21:29)
[2019-04-25] MEDS: FAMOTIDINE 20 MG TAB PO SCH (21:30)
[2019-04-25] MEDS: TAMSULOSIN 0.4 MG CAP.ER.24H PO SCH (21:30)
[2019-04-25] MEDS: INSULIN DETEMIR (LEVEMIR) 100 UNIT/ML SYR SQ SCH (21:30)
[2019-04-25] MEDS: PRAVASTATIN SODIUM 80 MG TAB PO SCH (21:31)
[2019-04-25] MEDS: Mirabegron [Myrbetriq] 25 MG PO SCH (21:31)
[2019-04-26] MEDS: LEVOTHYROXINE 50 MCG TAB PO SCH (05:33)
[2019-04-26] MEDS: PIPERACILLIN-TAZOBACTAM 3.375 GM in SODIUM CHLORIDE 0.9% 100 ML IVPB SCH ×3 (05:33→21:44)
[2019-04-26 07:05] LABS: Glucose,Whole Blood 165 mg/dL (75-99)
[2019-04-26] MEDS: SERTRALINE 100 MG TAB PO SCH (07:47)
[2019-04-26] MEDS: PANTOPRAZOLE 40 MG TABLET PO SCH ×2 (07:47→21:03)
[2019-04-26] MEDS: ALLOPURINOL 100 MG TAB PO SCH ×2 (07:47→21:02)
[2019-04-26] MEDS: amLODIPine 10 MG TAB PO SCH (07:47)
[2019-04-26] MEDS: HEPARIN SODIUM,PORCINE 5,000 UNIT/ML 1 ML VIAL SQ SCH ×2 (07:47→21:00)
[2019-04-26] MEDS: CARVEDILOL 12.5 MG TAB PO SCH ×2 (07:47→17:48)
[2019-04-26] MEDS: metFORMIN 500 MG TAB PO SCH ×2 (07:47→21:02)
[2019-04-26] MEDS: CLOPIDOGREL 75 MG TAB PO SCH (07:47)
[2019-04-26] MEDS: FLUTICASONE 50MCG/SPRAY NASAL 16GM EA NOSTRIL SCH ×2 (07:48→21:00)
[2019-04-26] MEDS: MULTIVITAMINS, THERA 1 EACH TAB PO SCH (07:48)
[2019-04-26] MEDS: carBAMazepine 200 MG TAB PO SCH ×3 (07:48→21:03)
[2019-04-26] MEDS: LORATADINE 10 MG TAB PO SCH (07:48)
[2019-04-26] MEDS: PREGABALIN 100 MG CAP PO SCH ×3 (07:48→21:03)
[2019-04-26] MEDS: BACLOFEN 10 MG TAB PO SCH ×3 (07:49→21:02)
[2019-04-26] MEDS: INSULIN ASPART (NovoLOG) 100 UNIT/ML VIAL SQ SCH ×7 (07:49→20:01)
[2019-04-26] MEDS: FENOFIBRATE 160 MG TAB PO SCH (07:50)
[2019-04-26] MEDS: FINASTERIDE 5 MG TAB PO SCH (07:50)
[2019-04-26] MEDS: HYDROCORTISONE SUPPOSITORY 25 MG SUPP RECTAL SCH (07:50)
[2019-04-26] MEDS: ZIPRASIDONE 20 MG CAP PO SCH ×3 (07:50→21:03)
[2019-04-26 08:25] LABS: Calcium 9.4 mg/dL (8.4-10.2); Potassium 4.8 mmol/L (3.5-5.1)
[2019-04-26 08:28] LABS: Basophils % (A) 0 %; Eosinophils # (A) 0.1 k/uL (0-0.7); Eosinophils % (A) 1 %; HCT 33.1 % (39.0-53.0); HGB 10.5 gm/dL (13.0-17.5); Hypochromasia Slight; Lymphocytes # (A) 1.1 k/uL (1.0-4.8); Lymphocytes % (A) 18 %; MCH 26.5 pg (25.0-35.0); MCHC 31.6 g/dL (31.0-37.0); MCV 83.8 fL (80.0-100.0); Mean Platelet Volume 8.5; Monocytes # (A) 0.4 k/uL (0-1.0); Monocytes % (A) 6 %; Neutrophils # (A) 4.6 k/uL (1.3-7.7); Neutrophils % (A) 73 %; Platelet Count 119 k/uL (150-450); RBC 3.95 m/uL (4.30-5.90); RDW 15.5 % (11.5-15.5); WBC 6.3 k/uL (3.8-10.6)
[2019-04-26 11:46] LABS: Glucose,Whole Blood 138 mg/dL (75-99)
--- NOTE | 2019-04-26 15:18 | XR ---
EXAMINATION TYPE: XR chest 2V DATE OF EXAM: 04/26/2019 COMPARISON: 04/24/2019 TECHNIQUE: PA and lateral views submitted. HISTORY: Weakness FINDINGS: Stable subsegmental basilar consolidation with prominent central interstitial pattern. No pleural eff usion or pneumothorax. Heart size is prominent. IMPRESSION: 1. Coarsened central interstitium with basilar atelectasis. Findings may represent interstitial bronc hitis or pneumonitis with venous congestion felt less likely given the lack of pleural fluid.
--- NOTE | 2019-04-26 16:42 | PN ---
PROGRESS NOTE DATE OF SERVICE: 04/26/2019 This 69-year-old gentleman who was admitted with COPD exacerbation, possible right lower lobe pneumonia, possibly aspiration, is being closely monitored. Patient on broad spectrum IV antibiotics, PT/OT evaluated for evaluate the patient for possible ECF rehab. Surgery has also seen the patient for possible hemorrhoids. No chest pain. No palpitations. No fever. PHYSICAL EXAM: On exam, alert and oriented x2. Pulse in 59, blood pressure 160/72, respiration 20, temperature 98.9, pulse ox 98% on 3 L. HEENT: Conjunctivae normal. NECK: No JVD. CARDIOVASCULAR: S1, S2, muffled. RESPIRATORY: Bases revealed a few scattered rhonchi and crackles, ABDOMEN: Is soft, obese, nontender. No mass palpable. EXTREMITIES: Legs are no edema, no swelling. CENTRAL NERVOUS SYSTEM: No focal deficits. LABS: WBC 6.2, hemoglobin 10.5, platelets 119. ASSESSMENT: 1. Chronic obstructive pulmonary disease exacerbation with possible right lower lobe pneumonia possibly aspiration possibly gram-negative. 2. Severe hyperkalemia. 3. Generalized gait dysfunction. 4. Anemia, normocytic anemia of chronic disease. 5. Thrombocytopenia. 6. History of cerebrovascular accident, transient ischemic attack. 7. Diabetes type 2. 8. History of DVT. 9. History of gastroesophageal reflux disease. 10.Hypertension. 11.History of myocardial infarction. 12.History of pulmonary embolism. 13.History of sleep apnea. 14.History of hypothyroidism. 15.Morbid obesity with BMI of 36.3. 16.Sleep apnea using CPAP. 17.Chronic hypoxic respiratory failure on 3 L nasal cannula. 18.History of peripheral neuropathy, severe, associated with diabetes type 2. 19.History of falls and gait dysfunction. 20.History of chronic back pain. 21.History of gout. 22.History of benign prostatic hypertrophy. 23.History of transient ischemic attack. 24.History of colonic polyps. 25.History of hernia repair. 26.History of bipolar depression, posttraumatic stress disorder. 27.FULL CODE. RECOMMENDATIONS AND DISCUSSION: This 69-year-old gentleman who presented with multiple complex medical issues, we will monitor the patient closely continue the current management and continue the bronchodilators. Continue with antibiotics, PT, OT evaluation, possible ECF rehab otherwise guarded prognosis because of multiple complex medical history. Further recommendations to follow. Monitor blood sugars closely. MMODL / IJN: [id number] /
--- NOTE | 2019-04-26 17:59 | P.PN ---
Subjective Progress Note Date: 04/26/19 69-year-old male patient came into the ED with generalized weakness. We were consulted on this patient for the possibility of COPD. His never smoked cigarettes and his life. He has a combination of comorbidities including CVA, diabetes, there is history of DVT and hypertension and coronary artery disease and previous [place] and obstructive sleep apnea hypothyroidism. He is obese and has issues with peripheral neuropathy and gait dysfunction and frequent falls and chronic back pain and gout and BPH and colonic polyps. Please refer to the consultation was done by my partner, Dr. Urrutia. Central physician with some bibasilar atelectatic changes. The patient is on 3 L of oxygen by nasal cannula with a pulse of 96%. His blood work is all within normal limits. The cardiac enzymes are negative. ProBNP level is negative. UA is negative. Objective - Vital Signs Vital signs: Vital Signs Temp 98.1 F 04/26/19 11:26 Pulse 59 L 04/26/19 11:26 Resp 22 04/26/19 11:26 BP 163/72 04/26/19 11:26 Pulse Ox 96 04/26/19 11:26 Intake & Output 04/25/19 04/26/19 04/26/19 18:59 06:59 18:59 Intake Total 1480 Output Total 559 203 5360 Balance -713 780 -1672 Intake: Intake, IV Titration 200 Amount Piperacillin-Tazobactam 3 200 .375 gm In Sodium Chloride 0.9% 100 ml @ 25 mls/hr IVPB Q8H [facility] Rx#: [id number] Oral 1280 Output: Urine 700 900 Straight 700 900 Post Void Residual 713 772 Other: Voiding Method Incontinent Diaper Diaper Self-Catheterization Incontinent Incontinent # Voids 1 2 3 - Exam Obese, comfortable likely distress. Head exam was generally normal. There was no scleral icterus or corneal arcus. Mucous membranes were moist. Neck was supple and without jugular venous distension, thyromegaly, or carotid bruits. Carotids were easily palpable bilaterally. There was no adenopathy. The patient has a Mallampati class IV with significant crowding of posterior oropharynx. Lungs were clear to auscultation and percussion, and with normal diaphragmatic excursion. No wheezes or rales were noted. Breath sounds are slightly diminished in lung bases bilaterally otherwise clear Cardiac exam revealed the PMI to be normally situated and sized. The rhythm was regular and no extrasystoles were noted during several minutes of auscultation. The first and second heart sounds were normal and physiologic splitting of the second heart sound was noted. There was a slight systolic ejection murmurs grade 2/6 heard at the left lateral sternal border and there is no evidence of any rubs, clicks, or gallops. Abdominal exam revealed normal bowel sounds. The abdomen was soft, non-tender, and without masses, organomegaly, or appreciable enlargement of the abdominal a leeanna. Examination of the extremities revealed easily palpable radial, femoral and pedal pulses. There was no cyanosis, clubbing or edema. Examination of the skin revealed no evidence of significant rashes, suspicious appearing nevi or other concerning lesions. - Labs CBC & Chem 7: 04/26/19 07:53 04/26/19 07:53 Labs: Abnormal Lab Results - Last 24 Hours (Table) 04/25/19 04/26/19 04/26/19 Range/Units 20:17 07:00 07:53 RBC (4.30-5.90) m/uL Hgb (13.0-17.5) gm/dL Hct (39.0-53.0) % Plt Count (150-450) k/uL BUN 26 H (9-20) mg/dL Glucose 169 H (74-99) mg/dL POC Glucose (mg/dL) 112 H 165 H (75-99) mg/dL 04/26/19 04/26/19 Range/Units 07:53 11:28 RBC 3.95 L (4.30-5.90) m/uL Hgb 10.5 L (13.0-17.5) gm/dL Hct 33.1 L (39.0-53.0) % Plt Count 119 L (150-450) k/uL BUN (9-20) mg/dL Glucose (74-99) mg/dL POC Glucose (mg/dL) 138 H (75-99) mg/dL Assessment and Plan Plan: 1 chronic respiratory insufficiency probably related to his obesity and bedridden condition with some atelectatic changes in the lung bases. Currently on oxygen between 2 and 3 L of oxygen by nasal cannula. No signs of any chronic lung disease or disorder. Lifetime nonsmoker. Pulmonary standpoint 2 CVA, history of 3 pulmonary embolism long with history of DVT, history of 4 gout 5 hyperlipidemia 6 hypothyroidism 7 diabetes mellitus 8 acid reflux 9 hypertension 10. Coronary artery disease with previous [place] 11 limited performance and functional status and the patient is incontinent to urine and he also has issues with hemorrhoids. Plan Chronic respiratory insufficiency reasons as discussed above. Provide incentive spirometer. Continue on oxygen at 2-3 L. Continue same medication. Pulmonary we'll sign off the case.
[2019-04-26 19:59] LABS: Glucose,Whole Blood 115 mg/dL (75-99)
[2019-04-26] MEDS: INSULIN DETEMIR (LEVEMIR) 100 UNIT/ML SYR SQ SCH (20:59)
[2019-04-26] MEDS: ARTIFICIAL TEARS OINTMENT 3.5 GM TUBE BOTH EYES SCH (21:01)
[2019-04-26] MEDS: Mirabegron [Myrbetriq] 25 MG PO SCH (21:01)
[2019-04-26] MEDS: FAMOTIDINE 20 MG TAB PO SCH (21:02)
[2019-04-26] MEDS: PRAVASTATIN SODIUM 80 MG TAB PO SCH (21:03)
[2019-04-26] MEDS: TAMSULOSIN 0.4 MG CAP.ER.24H PO SCH (21:03)
[2019-04-27] MEDS: PIPERACILLIN-TAZOBACTAM 3.375 GM in SODIUM CHLORIDE 0.9% 100 ML IVPB SCH ×3 (05:22→21:18)
[2019-04-27] MEDS: LEVOTHYROXINE 50 MCG TAB PO SCH (05:22)
[2019-04-27 05:28] LABS: Glucose,Whole Blood 133 mg/dL (75-99)
[2019-04-27 07:09] LABS: Glucose,Whole Blood 156 mg/dL (75-99)
[2019-04-27] MEDS: INSULIN ASPART (NovoLOG) 100 UNIT/ML VIAL SQ SCH ×7 (07:58→21:10)
[2019-04-27] MEDS: metFORMIN 500 MG TAB PO SCH ×2 (07:59→21:17)
[2019-04-27] MEDS: MULTIVITAMINS, THERA 1 EACH TAB PO SCH (07:59)
[2019-04-27] MEDS: ALLOPURINOL 100 MG TAB PO SCH ×2 (07:59→21:18)
[2019-04-27] MEDS: FLUTICASONE 50MCG/SPRAY NASAL 16GM EA NOSTRIL SCH ×2 (07:59→21:18)
[2019-04-27] MEDS: CLOPIDOGREL 75 MG TAB PO SCH (07:59)
[2019-04-27] MEDS: PREGABALIN 100 MG CAP PO SCH ×3 (07:59→21:17)
[2019-04-27] MEDS: HEPARIN SODIUM,PORCINE 5,000 UNIT/ML 1 ML VIAL SQ SCH ×2 (07:59→21:18)
[2019-04-27] MEDS: PANTOPRAZOLE 40 MG TABLET PO SCH ×2 (07:59→21:18)
[2019-04-27] MEDS: HYDROCORTISONE SUPPOSITORY 25 MG SUPP RECTAL SCH (08:00)
[2019-04-27] MEDS: amLODIPine 10 MG TAB PO SCH (08:00)
[2019-04-27] MEDS: FENOFIBRATE 160 MG TAB PO SCH (08:00)
[2019-04-27] MEDS: FINASTERIDE 5 MG TAB PO SCH (08:00)
[2019-04-27] MEDS: CARVEDILOL 12.5 MG TAB PO SCH ×2 (08:00→17:40)
[2019-04-27] MEDS: carBAMazepine 200 MG TAB PO SCH ×3 (08:00→21:17)
[2019-04-27] MEDS: SERTRALINE 100 MG TAB PO SCH (08:00)
[2019-04-27] MEDS: LORATADINE 10 MG TAB PO SCH (08:01)
[2019-04-27] MEDS: BACLOFEN 10 MG TAB PO SCH ×3 (08:01→21:17)
[2019-04-27] MEDS: ZIPRASIDONE 20 MG CAP PO SCH ×3 (08:01→21:20)
[2019-04-27 09:14] LABS: Basophils % (A) 0 %; Eosinophils # (A) 0.1 k/uL (0-0.7); Eosinophils % (A) 2 %; HCT 32.5 % (39.0-53.0); HGB 10.5 gm/dL (13.0-17.5); Hypochromasia Slight; Lymphocytes # (A) 1.1 k/uL (1.0-4.8); Lymphocytes % (A) 20 %; MCH 26.9 pg (25.0-35.0); MCHC 32.4 g/dL (31.0-37.0); MCV 82.9 fL (80.0-100.0); Mean Platelet Volume 8.9; Monocytes # (A) 0.3 k/uL (0-1.0); Monocytes % (A) 6 %; Neutrophils # (A) 4.1 k/uL (1.3-7.7); Neutrophils % (A) 71 %; Platelet Count 127 k/uL (150-450); RBC 3.92 m/uL (4.30-5.90); RDW 15.4 % (11.5-15.5); WBC 5.8 k/uL (3.8-10.6)
[2019-04-27 09:35] LABS: Calcium 9.2 mg/dL (8.4-10.2); Potassium 3.9 mmol/L (3.5-5.1)
[2019-04-27 11:53] LABS: Glucose,Whole Blood 82 mg/dL (75-99)
[2019-04-27] MEDS ORDERED: ERGOCALCIFEROL 50,000 UNIT CAP PO SCH (12:00)
[2019-04-27] MEDS ORDERED: ACETAMINOPHEN TAB 325 MG TAB PO PRN (14:15)
[2019-04-27 17:15] LABS: Glucose,Whole Blood 99 mg/dL (75-99)
--- NOTE | 2019-04-27 18:48 | PN ---
PROGRESS NOTE DATE OF SERVICE: 04/27/2019 This 69-year-old gentleman, admitted with COPD, acute exacerbation, as well as acute right lower lobe pneumonia, is on broad-spectrum IV antibiotics. Patient complains of generalized tiredness and weakness and change in mental status also. Apparently, per PT/OT, the patient does not qualify for rehab at this time. The patient also would like to return home with his and family to assist with transfers at this time. No chest pain. No palpitations. No fever. PHYSICAL EXAMINATION: Alert and oriented x2. Pulse 60, blood pressure 190/60, respirations 16, temperature 98.2, pulse ox 98% on 3 L. HEENT: Conjunctivae normal. NECK: No jugular venous distention. CARDIOVASCULAR SYSTEM: S1, S2 muffled. RESPIRATORY SYSTEM: Breath sounds diminished at the bases. A few scattered rhonchi and crackles. ABDOMEN: Soft, non-tender. LEGS: No edema. No swelling. NERVOUS SYSTEM: No focal deficit. LABS: WBC 5.8, hemoglobin 10.5. ASSESSMENT: 1. Chronic obstructive pulmonary disease, acute exacerbation, with possible right lower lobe pneumonia, possibly aspiration, possibly Gram-negative. 2. Severe hyperkalemia, present on admission. 3. Generalized gait dysfunction. 4. Anemia, normocytic; anemia of chronic disease. 5. Thrombocytopenia. 6. History of cerebrovascular accident, transient ischemic attack. 7. Diabetes mellitus, type 2. 8. Change in mental status, metabolic encephalopathy. 9. History of deep vein thrombosis. 10.History of gastroesophageal reflux disease. 11.Hypertension. 12.History of myocardial infarction. 13.History of pulmonary embolism. 14.Sleep apnea. 15.History of hypothyroidism. 16.Morbid obesity with body mass index of 36.3. 17.Sleep apnea; using CPAP. 18.Chronic hypoxic respiratory failure, on 3 L nasal cannula. 19.History of peripheral neuropathy, severe, associated with diabetes mellitus, type 2. 20.History of falls and gait dysfunction. 21.History of chronic back pain. 22.History of gout. 23.History of benign prostatic hypertrophy. 24.History of transient ischemic attack. 25.History of colonic polyp. 26.History of hernia repair. 27.History of bipolar depression, post-traumatic stress disorder. 28.FULL CODE. RECOMMENDATIONS AND DISCUSSION: I recommend to continue current medications, continue with the monitoring, symptomatic treatment. Continue with the PT/OT evaluation. Continue with IV antibiotics. Continue the bronchodilators. Prognosis guarded. Further recommendations to follow. MMODL / IJN: [id number] /
[2019-04-27 21:00] LABS: Glucose,Whole Blood 87 mg/dL (75-99)
[2019-04-27] MEDS: FAMOTIDINE 20 MG TAB PO SCH (21:17)
[2019-04-27] MEDS: PRAVASTATIN SODIUM 80 MG TAB PO SCH (21:17)
[2019-04-27] MEDS: TAMSULOSIN 0.4 MG CAP.ER.24H PO SCH (21:17)
[2019-04-27] MEDS: ARTIFICIAL TEARS OINTMENT 3.5 GM TUBE BOTH EYES SCH ×2 (21:18→21:22)
[2019-04-27] MEDS: INSULIN DETEMIR (LEVEMIR) 100 UNIT/ML SYR SQ SCH (21:18)
[2019-04-27] MEDS: Mirabegron [Myrbetriq] 25 MG PO SCH (22:12)
[2019-04-28 02:03] LABS: Glucose,Whole Blood 145 mg/dL (75-99)
[2019-04-28] MEDS: LEVOTHYROXINE 50 MCG TAB PO SCH (05:33)
[2019-04-28] MEDS: PIPERACILLIN-TAZOBACTAM 3.375 GM in SODIUM CHLORIDE 0.9% 100 ML IVPB SCH ×2 (05:33→15:11)
[2019-04-28 06:57] LABS: Glucose,Whole Blood 146 mg/dL (75-99)
[2019-04-28] MEDS: INSULIN ASPART (NovoLOG) 100 UNIT/ML VIAL SQ SCH ×4 (09:25→13:39)
[2019-04-28] MEDS: PREGABALIN 100 MG CAP PO SCH (09:28)
[2019-04-28] MEDS: metFORMIN 500 MG TAB PO SCH (09:28)
[2019-04-28] MEDS: LORATADINE 10 MG TAB PO SCH (09:28)
[2019-04-28] MEDS: SERTRALINE 100 MG TAB PO SCH (09:29)
[2019-04-28] MEDS: MULTIVITAMINS, THERA 1 EACH TAB PO SCH (09:29)
[2019-04-28] MEDS: PANTOPRAZOLE 40 MG TABLET PO SCH (09:29)
[2019-04-28] MEDS: ZIPRASIDONE 20 MG CAP PO SCH (09:30)
[2019-04-28] MEDS: ALLOPURINOL 100 MG TAB PO SCH (09:30)
[2019-04-28] MEDS: amLODIPine 10 MG TAB PO SCH (09:31)
[2019-04-28] MEDS: FENOFIBRATE 160 MG TAB PO SCH (09:31)
[2019-04-28] MEDS: carBAMazepine 200 MG TAB PO SCH (09:31)
[2019-04-28] MEDS: CLOPIDOGREL 75 MG TAB PO SCH (09:31)
[2019-04-28] MEDS: HEPARIN SODIUM,PORCINE 5,000 UNIT/ML 1 ML VIAL SQ SCH (09:32)
[2019-04-28] MEDS: CARVEDILOL 12.5 MG TAB PO SCH (09:32)
[2019-04-28] MEDS: BACLOFEN 10 MG TAB PO SCH ×2 (09:32→13:39)
[2019-04-28] MEDS: FINASTERIDE 5 MG TAB PO SCH (09:32)
[2019-04-28] MEDS: FLUTICASONE 50MCG/SPRAY NASAL 16GM EA NOSTRIL SCH (09:33)
[2019-04-28] MEDS: HYDROCORTISONE SUPPOSITORY 25 MG SUPP RECTAL SCH (09:35)
--- NOTE | 2019-04-28 11:14 | P.DS ---
Providers Date of admission: 04/25/19 13:21 Attending physician: Ankit Cyr Consults: 04/24/19 15:44 Consult Physician Routine Consulting Provider: Corona Roland Consult Reason/Comments: hemorrhoid Do you want consulting provider notified?: Yes 04/24/19 21:15 Consult Physician Routine Consulting Provider: Srini Urrutia Reason/Comments: copd Do you want consulting provider notified?: Yes Primary care physician: [facility] Hospital Course: Final diagnosis COPD acute exacerbation with a possible right lower pneumonia possibly aspiration possibly gram-negative Severe hyperkalemia present on admission improved Gen. list gait dysfunction Anemia normocytic anemia of chronic disease Thrombocytopenia History of CVA TIA Diabetes mellitus type 2 Change in mental status acute metabolic encephalopathy History of DVT History GERD Hypertension History of a myocardial infarction History of pulmonary embolism System sleep apnea History of hypothyroidism Morbid obesity body mass and as well as of 36.3 Sleep apnea using CPAP Chronic hypoxic respiratory failure 3 tenderness the [place] History of peripheral neuropathy severe associated diabetes mellitus type 2 History of also gait dysfunction History of chronic back pain History of gout History BPH History TIA Mr. colonic polyp History of hernia repair History bipolar depression and PTSD Full code Discharge medication This 69-year-old gentleman will be discharged in a stable condition with guarded prognosis of the patient be sent to [facility] total time taken 35 minutes. History of present illness This 69-year-old gentleman with a past medical history multiple medical process being followed by Dr. Black in the presence admitted with COPD acute exacerbation assist pneumonia patient also multiple complex medical issues as listed above with the diabetes and as well as hyperkalemia which was treated patient was given bronchodilators antibiotics patient improved significantly pulmonary saw the patient and patient be discharged in a stable pressure the medical doctor for [place] for further rehabilitation at this time. On exam vitals are stable cardio system normal respirator system few scattered rhonchi abdomen soft obese nervous system mild diffuse weakness Please refer to the medication reconciliation sheet for list of medications Plan - Discharge Summary New Discharge Prescriptions: New Hydrocortisone Suppository [Anusol-Hc] 25 mg RECTAL DAILY supp Carvedilol [Coreg*] 25 mg PO BID-W/MEALS tab Ipratropium-Albuterol Nebulize [Duoneb 0.5 mg-3 mg/3 ml Soln] 3 ml INHALATION RT-QID #1 ampul.neb INSULIN ASPART (NovoLOG) [NovoLOG (formulary)] 0 unit SQ ACHS vial Acetaminophen Tab [Tylenol] 650 mg PO Q6HR PRN tab PRN Reason: Fever And/ Or Pain Continue Levothyroxine Sodium [Synthroid] 50 mcg PO DAILY carBAMazepine [TEGretol] 400 mg PO TID Finasteride [Proscar] 5 mg PO DAILY Sertraline [Zoloft] 200 mg PO DAILY Allopurinol [Zyloprim] 100 mg PO BID Ergocalciferol [Vitamin D2 (DRISDOL)] 100,000 unit PO Q7D Tamsulosin [Flomax] 0.8 mg PO HS Pravastatin Sodium [Pravachol] 80 mg PO HS [place]-3 Fatty Acids/Fish Oil [Fish Oil 1,000 mg Softgel] 2 cap PO BID Clopidogrel Bisulfate [Plavix] 75 mg PO DAILY #20 tab Multivitamins, Thera [Multivitamin (formulary)] 1 tab PO DAILY Gemfibrozil [Lopid] 600 mg PO BID Ranitidine HCl [Zantac] 300 mg PO HS metFORMIN HCL 1,000 mg PO BID Albuterol Sulfate [Proair Hfa] 2 puff INHALATION RT-Q4H PRN PRN Reason: Shortness Of Breath amLODIPine [Norvasc] 10 mg PO DAILY Diclofenac Sodium Gel [Voltaren Gel] 1 applic TOPICAL BID PRN PRN Reason: Pain Fluticasone Nasal [place] [Flonase Nasal [place]] 1 spray EA NOSTRIL BID Insulin Glargine,Hum.rec.anlog [Lantus Solostar] 120 unit SQ HS clonazePAM [KlonoPIN] 0.5 mg PO TID PRN PRN Reason: Anxiety Baclofen [Lioresal] 20 mg PO HS Baclofen [Lioresal] 10 mg PO BID@0800,1300 Loratadine [Claritin] 10 mg PO DAILY Pantoprazole Sodium [Protonix] 40 mg PO BID Insulin Aspart [NovoLOG Flexpen] 40 units SQ AC-TID Mirabegron [Myrbetriq] 25 mg PO HS Carboxymethylcellulose Sodium [Refresh Tears] 1 drop BOTH EYES QID Ziprasidone [Geodon] 20 mg PO DAILY PRN PRN Reason: MENTAL HEALTH Artificial Tears Ointment [Lubrifresh Pm Ointment] 0.25 inch OPHTHALMIC HS Baclofen 10 mg PO DAILY PRN PRN Reason: Muscle Pain Dextrose Chew [Glucose Chew Tab] 4 - 12 gm PO DAILY PRN PRN Reason: LOW BS Miconazole Nitrate [Lotrimin AF Powder] 1 applic TOPICAL BID PRN PRN Reason: Skin Irritation Lisinopril [Zestril] 10 mg PO DAILY Budesonide/Formoterol Fumarate [Symbicort 160-4.5 Mcg Inhaler] 2 puff INHALATION RT-BID Zinc Oxide 16% Toipical Paste 1 applic TOPICAL BID PRN PRN Reason: Skin Irritation Ziprasidone [Geodon] 20 mg PO TID #10 cap Pregabalin [Lyrica] 100 mg PO TID #10 cap Discontinued Carvedilol [Coreg] 12.5 mg PO BID Insulin Aspart [NovoLOG Flexpen] See Protocol SQ AC-TID Discharge Medication List Allopurinol [Zyloprim] 100 mg PO BID 12/02/14 [History] Ergocalciferol [Vitamin D2 (DRISDOL)] 100,000 unit PO Q7D 12/02/14 [History] Finasteride [Proscar] 5 mg PO DAILY 12/02/14 [History] Levothyroxine Sodium [Synthroid] 50 mcg PO DAILY 12/02/14 [History] [place]-3 Fatty Acids/Fish Oil [Fish Oil 1,000 mg Softgel] 2 cap PO BID 12/02/14 [History] Pravastatin Sodium [Pravachol] 80 mg PO HS 12/02/14 [History] Sertraline [Zoloft] 200 mg PO DAILY 12/02/14 [History] Tamsulosin [Flomax] 0.8 mg PO HS 12/02/14 [History] carBAMazepine [TEGretol] 400 mg PO TID 12/02/14 [History] Clopidogrel Bisulfate [Plavix] 75 mg PO DAILY #20 tab 10/01/15 [Rx] Gemfibrozil [Lopid] 600 mg PO BID 12/21/16 [History] Multivitamins, Thera [Multivitamin (formulary)] 1 tab PO DAILY 12/21/16 [History] Ranitidine HCl [Zantac] 300 mg PO HS 07/01/17 [History] metFORMIN HCL 1,000 mg PO BID 03/06/18 [History] Albuterol Sulfate [Proair Hfa] 2 puff INHALATION RT-Q4H PRN 08/20/18 [History] Diclofenac Sodium Gel [Voltaren Gel] 1 applic TOPICAL BID PRN 08/20/18 [History] Fluticasone Nasal [place] [Flonase Nasal [place]] 1 spray EA NOSTRIL BID 08/20/18 [History] Insulin Glargine,Hum.rec.anlog [Lantus Solostar] 120 unit SQ HS 08/20/18 [History] amLODIPine [Norvasc] 10 mg PO DAILY 08/20/18 [History] clonazePAM [KlonoPIN] 0.5 mg PO TID PRN 09/18/18 [History] Baclofen [Lioresal] 10 mg PO BID@0800,1300 10/21/18 [History] Baclofen [Lioresal] 20 mg PO HS 10/21/18 [History] Loratadine [Claritin] 10 mg PO DAILY 10/21/18 [History] Pantoprazole Sodium [Protonix] 40 mg PO BID 10/21/18 [History] Insulin Aspart [NovoLOG Flexpen] 40 units SQ AC-TID 01/04/19 [History] Mirabegron [Myrbetriq] 25 mg PO HS 01/04/19 [History] Carboxymethylcellulose Sodium [Refresh Tears] 1 drop BOTH EYES QID 01/19/19 [History] Ziprasidone [Geodon] 20 mg PO DAILY PRN 01/19/19 [History] Artificial Tears Ointment [Lubrifresh Pm Ointment] 0.25 inch OPHTHALMIC HS 04/24/19 [History] Baclofen 10 mg PO DAILY PRN 04/24/19 [History] Budesonide/Formoterol Fumarate [Symbicort 160-4.5 Mcg Inhaler] 2 puff INHALATION RT-BID 04/24/19 [History] Dextrose Chew [Glucose Chew Tab] 4 - 12 gm PO DAILY PRN 04/24/19 [History] Lisinopril [Zestril] 10 mg PO DAILY 04/24/19 [History] Miconazole Nitrate [Lotrimin AF Powder] 1 applic TOPICAL BID PRN 04/24/19 [History] Zinc Oxide 16% Toipical Paste 1 applic TOPICAL BID PRN 04/24/19 [History] Acetaminophen Tab [Tylenol] 650 mg PO Q6HR PRN tab 04/28/19 [Rx] Carvedilol [Coreg*] 25 mg PO BID-W/MEALS tab 04/28/19 [Rx] Hydrocortisone Suppository [Anusol-Hc] 25 mg RECTAL DAILY supp 04/28/19 [Rx] INSULIN ASPART (NovoLOG) [NovoLOG (formulary)] 0 unit SQ ACHS vial 04/28/19 [Rx] Ipratropium-Albuterol Nebulize [Duoneb 0.5 mg-3 mg/3 ml Soln] 3 ml INHALATION RT-QID #1 ampul.neb 04/28/19 [Rx] Pregabalin [Lyrica] 100 mg PO TID #10 cap 04/28/19 [Rx] Ziprasidone [Geodon] 20 mg PO TID #10 cap 04/28/19 [Rx] Follow up Appointment(s)/Referral(s): [facility],Clinic [Primary Care Provider] - 1-2 days Activity/Diet/Wound Care/Special Instructions: Diet consistent carb Activity as tolerated Follow-up with the Dr. Black after discharge from [facility]. Follow-up Dr. Hutchison in the F
[2019-04-28 11:52] LABS: Glucose,Whole Blood 120 mg/dL (75-99)
[2019-04-28 12:17] VITALS: BP 139/65; PULSE 55; RESP 18; TEMP 98.2
== END 2019-04-28 15:45 | DRG 177 ==
LOC: EC 12:28 → 5NMEDONC 15:44 → OBSVTOIN 04-25 13:21
PROVIDERS: ADMIT Internal Medicine; ATTEND Internal Medicine
DX: J69.0 Pneumonitis due to inhalation of food and vomit (principal); G93.41 Metabolic encephalopathy; J44.1 Chronic obstructive pulmonary disease with (acute) exacerbation; J96.11 Chronic respiratory failure with hypoxia; F31.30 Bipolar disorder, current episode depressed, mild or moderate severity, unspecified; J15.6 Pneumonia due to other Gram-negative bacteria; I10 Essential (primary) hypertension; N40.0 Benign prostatic hyperplasia without lower urinary tract symptoms; K64.9 Unspecified hemorrhoids; M10.9 Gout, unspecified; K21.9 Gastro-esophageal reflux disease without esophagitis; K63.5 Polyp of colon; E86.0 Dehydration; E78.5 Hyperlipidemia, unspecified; E66.01 Morbid (severe) obesity due to excess calories; E87.5 Hyperkalemia; F43.10 Post-traumatic stress disorder, unspecified; E03.9 Hypothyroidism, unspecified; E11.42 Type 2 diabetes mellitus with diabetic polyneuropathy; G47.33 Obstructive sleep apnea (adult) (pediatric); I25.10 Atherosclerotic heart disease of native coronary artery without angina pectoris; D63.8 Anemia in other chronic diseases classified elsewhere; D69.6 Thrombocytopenia, unspecified; R29.6 Repeated falls; R26.9 Unspecified abnormalities of gait and mobility; W19.XXXA Unspecified fall, initial encounter; G89.29 Other chronic pain; I25.2 Old myocardial infarction; Z99.3 Dependence on wheelchair; Z87.440 Personal history of urinary (tract) infections; Z87.19 Personal history of other diseases of the digestive system; Z86.711 Personal history of pulmonary embolism; Z86.19 Personal history of other infectious and parasitic diseases; Z80.1 Family history of malignant neoplasm of trachea, bronchus and lung; Z79.890 Hormone replacement therapy; Z79.51 Long term (current) use of inhaled steroids; Z79.02 Long term (current) use of antithrombotics/antiplatelets; Z79.899 Other long term (current) drug therapy; Z79.4 Long term (current) use of insulin; Z80.52 Family history of malignant neoplasm of bladder; Z86.718 Personal history of other venous thrombosis and embolism; Z68.36 Body mass index [BMI] 36.0-36.9, adult; Z98.890 Other specified postprocedural states; Z91.81 History of falling; Z86.73 Personal history of transient ischemic attack (TIA), and cerebral infarction without residual deficits
CPT/HCPCS: 36415; 70450; 71046; 80048; 80051; 80053; 81001; 82550; 83605; 83735; 83880; 84100; 84145; 84439; 84443; 84481; 84484; 85025; 85610; 85730; 87502; 93005; 94760; 96360; 96361; 99285

== ENCOUNTER 2020-07-02 21:34 | Inpatient (IN) | payer OTHER, MEDICARE ==
[2020-07-02 22:31] LABS: Anisocytosis Slight; Basophils % (A) 0 %; Eosinophils # (A) 0.2 k/uL (0-0.7); Eosinophils % (A) 2 %; HCT 31.1 % (39.0-53.0); HGB 10.2 gm/dL (13.0-17.5); Lymphocytes # (A) 1.1 k/uL (1.0-4.8); Lymphocytes % (A) 10 %; MCH 28.2 pg (25.0-35.0); MCHC 32.7 g/dL (31.0-37.0); MCV 86.2 fL (80.0-100.0); Mean Platelet Volume 7.8; Monocytes # (A) 0.5 k/uL (0-1.0); Monocytes % (A) 5 %; Neutrophils # (A) 8.6 k/uL (1.3-7.7); Neutrophils % (A) 82 %; Platelet Count 189 k/uL (150-450); WBC 10.5 k/uL (3.8-10.6)
--- NOTE | 2020-07-02 22:43 | ED ---
General Adult HPI - General Chief complaint: Altered Mental Status Stated complaint: Altered Mental Status Time Seen by Provider: 07/02/20 21:38 Source: EMS Mode of arrival: EMS Limitations: no limitations - History of Present Illness Initial comments: Jarrell is a 70-year-old gentleman with extensive past medical history who is lived in a care facility for the past year due to debility which his attributes to recurrent urinary tract infections. noted the patient seemed to be sleeping more and less active over the past few days because he hasn't been calling her on his cell phone like he usually does. Today the care facility sent him to an outside hospital for evaluation where he was found to have a urinary tract infection, dehydration, acute kidney injury, mildly elevated troponin respiratory acidosis. Patient subsequent sent to our emergency department for admission to hospital and management with medical subspecialties. - Related Data Home Medications Medication Instructions Recorded Confirmed Ergocalciferol [Vitamin D2 100,000 unit PO Q7D 12/02/14 05/21/19 (DRISDOL)] Finasteride [Proscar] 5 mg PO DAILY 12/02/14 05/21/19 Levothyroxine Sodium [Synthroid] 50 mcg PO DAILY 12/02/14 05/21/19 [place]-3 Fatty Acids/Fish Oil [Fish 2 cap PO BID 12/02/14 05/21/19 Oil 1,000 mg Softgel] Pravastatin Sodium [Pravachol] 80 mg PO HS 12/02/14 05/21/19 Sertraline [Zoloft] 200 mg PO DAILY 12/02/14 05/21/19 Tamsulosin [Flomax] 0.8 mg PO HS 12/02/14 05/21/19 allopurinoL [Zyloprim] 100 mg PO BID 12/02/14 05/21/19 carBAMazepine [TEGretol] 400 mg PO TID 12/02/14 05/21/19 Multivitamins, Thera [Multivitamin 1 tab PO DAILY 12/21/16 05/21/19 (formulary)] gemfibroziL [Lopid] 600 mg PO BID 12/21/16 05/21/19 Ranitidine HCl [Zantac] 300 mg PO HS 07/01/17 05/21/19 metFORMIN HCL 1,000 mg PO BID 03/06/18 05/21/19 Albuterol Sulfate [Proair Hfa] 2 puff INHALATION RT-Q4H PRN 08/20/18 05/21/19 Diclofenac Sodium Gel [Voltaren 1 applic TOPICAL BID PRN 08/20/18 05/21/19 Gel] Fluticasone Nasal [place] [Flonase 1 spray EA NOSTRIL BID 08/20/18 05/21/19 Nasal [place]] Insulin Glargine,Hum.rec.anlog 120 unit SQ HS 08/20/18 05/21/19 [Lantus Solostar] Baclofen [Lioresal] 10 mg PO BID@0800,1300 10/21/18 05/21/19 Baclofen [Lioresal] 20 mg PO HS 10/21/18 05/21/19 Loratadine [Claritin] 10 mg PO DAILY 10/21/18 05/21/19 Pantoprazole Sodium [Protonix] 40 mg PO BID 10/21/18 05/21/19 Insulin Aspart [NovoLOG Flexpen] 40 units SQ AC-TID 01/04/19 05/21/19 Mirabegron [Myrbetriq] 25 mg PO HS 01/04/19 05/21/19 Carboxymethylcellulose Sodium 1 drop BOTH EYES QID 01/19/19 05/21/19 [Refresh Tears] Ziprasidone [Geodon] 20 mg PO DAILY PRN 01/19/19 05/21/19 Artificial Tears Ointment 0.25 inch OPHTHALMIC HS 04/24/19 05/21/19 [Lubrifresh Pm Ointment] Baclofen 10 mg PO DAILY PRN 04/24/19 05/21/19 Budesonide/Formoterol Fumarate 2 puff INHALATION RT-BID 04/24/19 05/21/19 [Symbicort 160-4.5 Mcg Inhaler] Dextrose Chew [Glucose Chew Tab] 4 - 12 gm PO DAILY PRN 04/24/19 05/21/19 Miconazole Nitrate [Lotrimin AF 1 applic TOPICAL BID PRN 04/24/19 05/21/19 Powder] Zinc Oxide 16% Toipical Paste 1 applic TOPICAL BID PRN 04/24/19 05/21/19 lisinopriL [Zestril] 10 mg PO DAILY 04/24/19 05/21/19 Previous Rx's Medication Instructions Recorded Clopidogrel Bisulfate [Plavix] 75 mg PO DAILY #20 tab 10/01/15 Acetaminophen Tab [Tylenol] 650 mg PO Q6HR PRN tab 04/28/19 Hydrocortisone Suppository 25 mg RECTAL DAILY supp 04/28/19 [Anusol-Hc] Ipratropium-Albuterol Nebulize 3 ml INHALATION RT-QID #1 ampul.neb 04/28/19 [Duoneb 0.5 mg-3 mg/3 ml Soln] Pregabalin [Lyrica] 100 mg PO TID #10 cap 04/28/19 Ziprasidone [Geodon] 20 mg PO TID #10 cap 04/28/19 carvediloL [Coreg*] 25 mg PO BID-W/MEALS tab 04/28/19 Cephalexin [Keflex] 500 mg PO Q8HR #21 cap 05/27/19 Docusate [Colace] 100 mg PO DAILY PRN cap 05/27/19 INSULIN ASPART (NovoLOG) [NovoLOG 0 unit SQ ACHS vial 05/27/19 (formulary)] clonazePAM [KlonoPIN] 0.5 mg PO TID PRN #3 tab 05/27/19 Allergies Allergy/AdvReac Type Severity Reaction Status Date / Time aspirin Allergy ABDOMINAL Verified 05/21/19 22:01 DISCOMFORT etodolac [From Lodine] Allergy Unknown Verified 05/21/19 22:01 oxybutynin Allergy Unknown Verified 05/21/19 22:01 Review of Systems ROS Statement: Those systems with pertinent positive or pertinent negative responses have been documented in the HPI. ROS Other: All systems not noted in ROS Statement are negative. Past Medical History Past Medical History: COPD, CVA/TIA, Diabetes Mellitus, Deep Vein Thrombosis (DVT), GERD/Reflux, Hypertension, Myocardial Infarction (CO), Prostate Disorder, Pulmonary Embolus (PE), Sleep Apnea/CPAP/BIPAP, Thyroid Disorder Additional Past Medical History / Comment(s): Morbid obesity, obstructive sleep apnea uses CPAP-uses O2 at 5 L during night with cpap, uses 3 liters nasal cannula at home continuous, SOB,history of peripheral neuropathy severe associated related to diabetes mellitus, gait dysfunction and frequent falls- uses w/c-able to stand to transfer, chronic back pain, gout, BPH, TIA/CVA-loyda arm and leg weakness, previous history of C. diff colitis back in 2010,hypothyro idism,colon polyps, per speech is garbled/slurred which is the residual from old stroke Last Myocardial Infarction Date:: 2010 History of Any Multi-Drug Resistant Organisms: None Reported Date of last positivie culture/infection: None MDRO Source:: None Past Surgical History: Hernia Repair Additional Past Surgical History / Comment(s): hiatal hernia repair x 2, umbilical hernia repair,2nd digit rt hand amputated Past Anesthesia/Blood Transfusion Reactions: No Reported Reaction Past Psychological History: Bipolar, Depression, PTSD Smoking Status: Never smoker Past Alcohol Use History: None Reported Past Drug Use History: None Reported - Past Family History Father Family Medical History: Cancer Additional Family Medical History / Comment(s): lung Mother Family Medical History: Cancer Additional Family Medical History / Comment(s): bladder General Exam - General Exam Comments Initial Comments: Physical Exam GENERAL: Elderly, obese debilitated gentleman HENT: Normocephalic, Atraumatic. EYES: PERRL, EOMI PULMONARY: Unlabored respirations. CARDIOVASCULAR: There is a regular rate and rhythm without any murmurs gallops or rubs. ABDOMEN: Soft and nontender with normal bowel sounds. SKIN: Skin is clear with no lesions or rashes and otherwise unremarkable. : Altman catheter in place draining dark urine with significant sediment NEUROLOGIC: Oriented to person place MUSCULOSKELETAL: No obvious injuries, generalized weakness PSYCHIATRIC: Normal psychiatric evaluation. 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 Vigil as an outpatient but has been inpatient at [facility] for greater than 1 year where she has been cared for by Dr. Jaime therefore he will be admitted to Dr. ruiz Repeat labs were obtained Patient care was discussed with Dr Thrasher who agrees with plan for admission for further IV antibiotics, fluids as needed and cardiology consult for elevated troponin - Lab Data Result diagrams: 07/02/20 22:20 Lab Results 07/02/20 Range/Units 22:20 WBC 10.5 (3.8-10.6) k/uL RBC 3.60 L (4.30-5.90) m/uL Hgb 10.2 L (13.0-17.5) gm/dL Hct 31.1 L (39.0-53.0) % MCV 86.2 (80.0-100.0) fL MCH 28.2 (25.0-35.0) pg MCHC 32.7 (31.0-37.0) g/dL RDW 16.0 H (11.5-15.5) % Plt Count 189 (150-450) k/uL MPV 7.8 Neutrophils % 82 % Lymphocytes % 10 % Monocytes % 5 % Eosinophils % 2 % Basophils % 0 % Neutrophils # 8.6 H (1.3-7.7) k/uL Lymphocytes # 1.1 (1.0-4.8) k/uL Monocytes # 0.5 (0-1.0) k/uL Eosinophils # 0.2 (0-0.7) k/uL Basophils # 0.0 (0-0.2) k/uL Anisocytosis Slight Disposition Clinical Impression: Dehydration, Catheter-associated urinary tract infection, Respiratory acidosis, Elevated troponin Disposition: ADMITTED IP TO THIS [facility] Condition: Serious Referrals: Jasper Jaime MD [Primary Care Provider] - 1-2 days
[2020-07-02 23:02] LABS: INR 1.1 (<1.2); Partial Thromboplastin Time 26.1 sec (22.0-30.0); Prothrombin Time 11.4 sec (9.0-12.0)
[2020-07-02] MEDS ORDERED: NALOXONE 0.4 MG/ML 1 ML VIAL IV PRN (23:02)
[2020-07-02 23:05] LABS: Albumin 4.5 g/dL (3.5-5.0); Calcium 9.4 mg/dL (8.4-10.2); Potassium 5.5 mmol/L (3.5-5.1); Total Bilirubin 0.3 mg/dL (0.2-1.3); Total Protein 7.5 g/dL (6.3-8.2)
[2020-07-02 23:25] LABS: Appearance,Urine Cloudy (Clear); Bilirubin,Urine Negative (Negative); Blood,Urine Large (Negative); Color,Urine Light Red; Glucose,Urine (UA) Negative (Negative); Ketones,Urine Negative (Negative); Leukocyte Esterase,Urine Large (Negative); Mucus,Urine Rare /hpf; Nitrite,Urine Negative (Negative); PH, Urine 5.5 (5.0-8.0); Protein,Urine 2+ (Negative); RBC,Urine >182 /hpf (0-5); Specific Gravity,Urine 1.018 (1.001-1.035); Urobilinogen,Urine <2.0 mg/dL (<2.0); WBC,Urine 79 /hpf (0-5)
[2020-07-03] MEDS: SODIUM CHLORIDE 0.9% 1,000 ML IV SCH ×2 (01:08→06:40)
[2020-07-03 01:10] LABS: ABG Base Excess 3.6 mmol/L; ABG HCO3 30 mmol/L (21-25); ABG Oxygen Saturation 95.5 % (94-97); ABG PCO2 62 mmHg (35-45); ABG PO2 96 mmHg (83-108); ABG TCO2 32 mmol/L (19-24); Allen Test Performed? Yes
[2020-07-03 01:45] LABS: Glucose,Whole Blood 151 mg/dL (75-99)
[2020-07-03 06:07] LABS: Glucose,Whole Blood 158 mg/dL (75-99)
[2020-07-03 10:54] LABS: Anisocytosis Slight; Basophils % (A) 0 %; Eosinophils # (A) 0.1 k/uL (0-0.7); Eosinophils % (A) 1 %; HCT 33.2 % (39.0-53.0); HGB 11.1 gm/dL (13.0-17.5); Lymphocytes # (A) 0.8 k/uL (1.0-4.8); Lymphocytes % (A) 10 %; MCHC 33.4 g/dL (31.0-37.0); MCV 86.9 fL (80.0-100.0); Monocytes # (A) 0.4 k/uL (0-1.0); Monocytes % (A) 5 %; Neutrophils # (A) 6.9 k/uL (1.3-7.7); Neutrophils % (A) 83 %; Platelet Count 170 k/uL (150-450); RBC 3.82 m/uL (4.30-5.90); WBC 8.4 k/uL (3.8-10.6)
--- NOTE | 2020-07-03 11:18 | ECHOF ---
Referral Reason:LV function MEASUREMENTS -------- HEIGHT: 177.8 cm WEIGHT: 121.1 kg BP: 155/75 RVIDd: 3.1 cm (< 3.3) IVSd: 2.0 cm (0.6 - 1.1) LVIDd: 4.5 cm (3.9 - 5.3) LVPWd: 1.8 cm (0.6 - 1.1) IVSs: 2.3 cm LVIDs: 3.4 cm LVPWs: 2.1 cm LA Diam: 4.1 cm (2.7 - 3.8) Ao Diam: 4.1 cm (2.0 - 3.7) AV Cusp: 1.5 cm (1.5 - 2.6) MV EXCURSION: 11.323 mm (> 18.000) MV EF SLOPE: 28 mm/s (70 - 150) EPSS: 0.5 cm MV E Patricio: 0.78 m/s MV DecT: 321 ms MV A Patricio: 1.01 m/s MV E/A Ratio: 0.77 AV maxP.67 mmHg AV meanP.25 mmHg RAP: 5.00 mmHg RVSP: 38.78 mmHg FINDINGS -------- Sinus rhythm. This was a technically difficult study with suboptimal apical views. The left ventricular size is normal. There is severe concentric left ventricular hypertrophy. Ove rall left ventricular systolic function is normal with, an EF between 55 - 60 %. The right ventricle is normal in size. The left atrium is mildly dilated. The right atrium is normal in size. 3 ml of Lumason was utilized for enhancement of images. Interatrial and interventricular septum intact. There is moderate aortic valve sclerosis. There is moderate aortic stenosis present. Peak/mean gr adient across the Aortic Valve is 48.67mmHg / 24.25mmHg. Can't exclude possible Bicuspid Aov. Mild mitral annular calcification present. Mild tricuspid regurgitation present. There is mild pulmonary hypertension. The right ventricular systolic pressure, as measured by Doppler, is 38.78mmHg. The pulmonic valve was not well visualized. The aortic root is dilated measuring 4.1cm. IVC Not well visulized. There is no pericardial effusion. CONCLUSIONS -------- 1. This was a technically difficult study with suboptimal apical views. 2. The left ventricular size is normal. 3. There is severe concentric left ventricular hypertrophy. 4. Overall left ventricular systolic function is normal with, an EF between 55 - 60 %. 5. The left atrium is mildly dilated. 6. 3 ml of Lumason was utilized for enhancement of images. 7. There is moderate aortic valve sclerosis. 8. There is moderate aortic stenosis present. 9. Peak/mean gradient across the Aortic Valve is 48.67mmHg / 24.25mmHg. 10. Can't exclude possible Bicuspid Aov. 11. Mild mitral annular calcification present. 12. Mild tricuspid regurgitation present. 13. There is mild pulmonary hypertension. 14. The right ventricular systolic pressure, as measured by Doppler, is 38.78mmHg. 15. The aortic root is dilated measuring 4.1cm. 16. There is no pericardial effusion. DEPOT MANAGER: Carly Wilkinson RDCS
[2020-07-03 11:44] LABS: Calcium 9.6 mg/dL (8.4-10.2)
[2020-07-03 11:48] LABS: Potassium 5.4 mmol/L (3.5-5.1)
[2020-07-03 12:02] LABS: Glucose,Whole Blood 154 mg/dL (75-99)
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
[2020-07-03] MEDS ORDERED: NA PHOS,M-B/NA PHOS,DI-BA 133 ML ENEMA RECTAL PRN (13:08)
[2020-07-03] MEDS ORDERED: bisacodyL 10 MG SUPP RECTAL PRN (13:08)
[2020-07-03] MEDS ORDERED: DEXTROSE 4 GM CHEWABLE PO PRN (13:08)
[2020-07-03] MEDS ORDERED: DICLOFENAC SODIUM GEL 100 GM TUBE TOPICAL PRN (13:08)
[2020-07-03] MEDS ORDERED: ALBUTEROL NEBULIZED 2.5 MG/3 ML INHALATION PRN (13:08)
[2020-07-03] MEDS ORDERED: HYDROCORTISONE 2.5% RECTAL CREAM 30 GM TUBE RECTAL PRN (13:08)
[2020-07-03] MEDS ORDERED: BACLOFEN 10 MG TAB PO PRN (13:08)
[2020-07-03] MEDS ORDERED: ACETAMINOPHEN TAB 325 MG TAB PO PRN (13:08)
[2020-07-03] MEDS: methylPREDNISolone SOD SUCCI 40 MG/ML 1 ML VIAL IV SCH ×2 (14:45→20:38)
[2020-07-03] MEDS: clonazePAM 0.5 MG TAB PO SCH ×2 (14:45→20:34)
[2020-07-03] MEDS: SENNOSIDES-DOCUSATE SODIUM 1 EACH TAB PO SCH (14:46)
[2020-07-03] MEDS: LEVOTHYROXINE 50 MCG TAB PO SCH (14:46)
[2020-07-03] MEDS: allopurinoL 100 MG TAB PO SCH ×2 (14:46→20:37)
[2020-07-03] MEDS: PANTOPRAZOLE 40 MG TABLET PO SCH (14:46)
[2020-07-03] MEDS: lisinopriL 10 MG TAB PO SCH (14:46)
[2020-07-03] MEDS: FINASTERIDE 5 MG TAB PO SCH (14:46)
[2020-07-03] MEDS: SERTRALINE 100 MG TAB PO SCH (14:46)
[2020-07-03] MEDS: carBAMazepine 200 MG TAB PO SCH ×2 (14:46→20:34)
[2020-07-03] MEDS: IPRATROPIUM-ALBUTEROL 3 ML NEB INHALATION SCH ×2 (15:16→19:26)
[2020-07-03] MEDS: INSULIN ASPART (NovoLOG) 100 UNIT/ML VIAL SQ SCH ×5 (16:49→20:40)
[2020-07-03] MEDS: SODIUM CHLORIDE 0.45% 1,000 ML IV SCH (16:50)
[2020-07-03] MEDS: ZIPRASIDONE 20 MG CAP PO SCH ×2 (16:52→20:34)
[2020-07-03] MEDS: carvediloL 12.5 MG TAB PO SCH (16:52)
[2020-07-03] MEDS: PREGABALIN 100 MG CAP PO SCH ×2 (16:52→20:34)
[2020-07-03] MEDS: buPROPion XL 150 MG TAB.ER.24H PO SCH (16:52)
[2020-07-03] MEDS: polyethylene glycoL 3350 17 GM POWD.PACK PO SCH (16:56)
[2020-07-03 17:10] LABS: Glucose,Whole Blood 155 mg/dL (75-99)
[2020-07-03] MEDS: ARTIFICIAL TEARS-HYPROMELLOSE DROPS 15 ML BTL BOTH EYES SCH ×2 (18:07→20:34)
[2020-07-03] MEDS: SYMBICORT 80-4.5 MCG INHALER INHALATION SCH ×2 (19:26→19:27)
[2020-07-03 20:26] LABS: Glucose,Whole Blood 169 mg/dL (75-99)
[2020-07-03] MEDS: metFORMIN 500 MG TAB PO SCH (20:33)
[2020-07-03] MEDS: BACLOFEN 10 MG TAB PO SCH (20:33)
[2020-07-03] MEDS: CALCIUM CARBONATE 500 MG CHEWABLE PO SCH (20:33)
[2020-07-03] MEDS: PRAVASTATIN SODIUM 80 MG TAB PO SCH (20:33)
[2020-07-03] MEDS: SIMETHICONE 80 MG CHEWABLE PO SCH (20:33)
[2020-07-03] MEDS: TAMSULOSIN 0.4 MG CAP.ER.24H PO SCH (20:34)
[2020-07-03] MEDS: INSULIN DETEMIR (LEVEMIR) 100 UNIT/ML SYR SQ SCH (20:35)
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
[2020-07-03] MEDS ORDERED: hydrALAZINE HCL 25 MG TAB PO PRN (21:44)
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
[2020-07-04 01:12] LABS: Glucose,Whole Blood 155 mg/dL (75-99)
[2020-07-04] MEDS: LEVOTHYROXINE 50 MCG TAB PO SCH (06:25)
[2020-07-04] MEDS: carvediloL 12.5 MG TAB PO SCH ×2 (06:26→18:05)
[2020-07-04] MEDS: SODIUM CHLORIDE 0.45% 1,000 ML IV SCH ×2 (06:29→20:29)
[2020-07-04 06:48] LABS: Glucose,Whole Blood 148 mg/dL (75-99)
[2020-07-04] MEDS: INSULIN ASPART (NovoLOG) 100 UNIT/ML VIAL SQ SCH ×7 (06:59→21:19)
[2020-07-04] MEDS: SYMBICORT 80-4.5 MCG INHALER INHALATION SCH ×2 (07:49→20:07)
[2020-07-04] MEDS: IPRATROPIUM-ALBUTEROL 3 ML NEB INHALATION SCH ×4 (07:49→20:05)
[2020-07-04] MEDS ORDERED: BACLOFEN 10 MG TAB PO SCH (08:00)
--- NOTE | 2020-07-04 08:57 | P.PN ---
Progress Note - Text Progress Note Date: 07/04/20 Mr. Díaz has no complaints at this time. He is afebrile with stable vital signs. His WBC count is normal. The Altman catheter is draining clear yellow urine. He is receiving Rocephin, pending the urine culture result. After weighing the pros and cons of a TURP, he has elected to continue with an indwelling Altman catheter. He understands that this predisposes him to UTIs. He may be discharged home on oral antibiotics soon. It would be reasonable to await the urine culture results to determine which oral antibiotic would be most appropriate. Please notify me if I can be of any further assistance.
--- NOTE | 2020-07-04 09:24 | US ---
EXAMINATION TYPE: US renals and bladder DATE OF EXAM: 07/03/2020 COMPARISON: NONE CLINICAL HISTORY: recurrent UTI. EXAM MEASUREMENTS: Right Kidney: 12.1 x 6.0 x 7.0 cm Left Kidney: 12.4 x 6.0 x 6.6 cm Morbidly obese patient, technically difficult study. Right Kidney: 2 cyst, 1.) 6.2 x 6.3 x 7.0 cm, 2.) 3.3 x 3.1 x 3.7 cm Left Kidney: 2 cyst, 1.) 2.3 x 1.8 x 2.3 cm, 2.) 2.6 x 1.9 x 2.1 xm Bladder: not distended, not seen No hydronephrosis or nephrolithiasis. IMPRESSION: 1. Bilateral renal cysts. No hydronephrosis or nephrolithiasis.
[2020-07-04] MEDS: polyethylene glycoL 3350 17 GM POWD.PACK PO SCH (09:25)
[2020-07-04] MEDS: CALCIUM CARBONATE 500 MG CHEWABLE PO SCH ×2 (09:26→21:19)
[2020-07-04] MEDS: FENOFIBRATE 160 MG TAB PO SCH (09:26)
[2020-07-04] MEDS: ZIPRASIDONE 20 MG CAP PO SCH ×3 (09:26→21:38)
[2020-07-04] MEDS: carBAMazepine 200 MG TAB PO SCH ×3 (09:26→21:20)
[2020-07-04] MEDS: MULTIVITAMINS, THERA 1 EACH TAB PO SCH (09:26)
[2020-07-04] MEDS: SIMETHICONE 80 MG CHEWABLE PO SCH ×2 (09:26→21:38)
[2020-07-04] MEDS: allopurinoL 100 MG TAB PO SCH ×2 (09:27→21:19)
[2020-07-04] MEDS: clonazePAM 0.5 MG TAB PO SCH ×3 (09:27→21:20)
[2020-07-04] MEDS: SERTRALINE 100 MG TAB PO SCH (09:27)
[2020-07-04] MEDS: buPROPion XL 150 MG TAB.ER.24H PO SCH (09:27)
[2020-07-04] MEDS: FINASTERIDE 5 MG TAB PO SCH (09:27)
[2020-07-04] MEDS: lisinopriL 10 MG TAB PO SCH (09:27)
[2020-07-04] MEDS: PANTOPRAZOLE 40 MG TABLET PO SCH (09:28)
[2020-07-04] MEDS: metFORMIN 500 MG TAB PO SCH ×2 (09:28→21:19)
[2020-07-04] MEDS: PREGABALIN 100 MG CAP PO SCH ×3 (09:28→21:20)
[2020-07-04] MEDS: SENNOSIDES-DOCUSATE SODIUM 1 EACH TAB PO SCH (09:28)
[2020-07-04] MEDS: CLOPIDOGREL 75 MG TAB PO SCH (09:28)
[2020-07-04] MEDS: methylPREDNISolone SOD SUCCI 40 MG/ML 1 ML VIAL IV SCH (09:29)
[2020-07-04] MEDS: ARTIFICIAL TEARS-HYPROMELLOSE DROPS 15 ML BTL BOTH EYES SCH ×4 (09:37→21:23)
--- NOTE | 2020-07-04 10:26 | P.PN ---
Subjective Is a pleasant 70 years old male with past medical history of COPD, CVA, diabetes mellitus, DVT, GERD, hypertension, myocardial infarction, pulmonary embolism. He is a patient of Dr. Gutierrez. But patient states he goes to the [facility] He was recently hospitalized 05/23-05/28 for UTI and hyperglycemia. This time Patient was transferred from [facility] where his Altman catheter was changed there. Patient is awake and alert to time and place and person, he have some difficulty with his memory but he answered questions appropriately and follow commands, he is calm. Patient states that he was sent to the hospital because of his confusion, he still thinks he is confused however he denies headache or blurred vision or slurred speech. No weakness or numbness in extremities. No dyspnea or chest pain. No change in urine or bowel habits. it looks like patient has a long history of urinary problem secondary to his prostate hyperplasia, he follows up with Dr. Greene who recommended TURP For him, and he was reluctant to do the procedure at that time, since last year 10/2019 he developed urinary retention with indwelling Altman catheter in Place causing him recurrent UTIs. Dr. Greene also saw the patient today and patient still not interested in doing the TURP Vital signs stable and his blood pressure on the high side 179/83, he had low- grade temperature of 99.8, Please saturating 91% on 2 L oxygen CBC showing normal WBC at 8.4, hemoglobin 11.1, platelets within reference range 170. INR is 1.1. PH is 7.3, pCO2 slightly elevated at 62, pO2 is normal at 96 His sodium is slightly elevated at 146. Creatinine 1.0 and potassium was 5.4. The glucose is controlled. Troponin is elevated at 0.04 x 3 Urine is suspicious for infection Culture from 05/21/19 showing Proteus sensitive to many bacteria to ceftriaxone Echocardiogram showed ejection fraction of 55-60% with severe LVH He is currently on 07/04/2020 Patient is awake, history of failed confused although he is oriented to time, place and person, he knows why he is in the hospital. He still on ceftriaxone for catheter associated UTI. His major problem is BPH however patient denies TURP suggested by urologist. Altman catheter is a still in place with clear urine. No suprapubic tenderness or other symptoms. Urine culture is pending. His expiratory wheezing is much improved and Solu-Medrol And Switched to Prednisone Today. Troponin was elevated 0.043, evaluated by [employer] mainframe systems programmer and it was felt secondary to his infection and renal disease. Echocardiogram showed ejection fraction of 55-60% with severe LVH and moderate aortic stenosis His pressure this morning is 168/69, his lisinopril was restarted. Renal ultrasound showing bilateral renal cysts. No hydronephrosis or nephrolithiasis Repeat basic metabolic panel and troponin this morning are still pending. Review of Systems CONSTITUTIONAL: No fever, no malaise, no fatigue. HEENT: No recent visual problems or hearing problems. Denied any sore throat. CARDIOVASCULAR: No orthopnea, PND, no palpitations, no syncope. PULMONARY: No shortness of breath, no cough, no hemoptysis. GASTROINTESTINAL: No diarrhea, no nausea, no vomiting, no abdominal pain. Normoactive bowel sounds. NEUROLOGICAL: No headaches, no weakness, no numbness. Active Medications Generic Name Dose Route Start Last Admin Trade Name Freq PRN Reason Stop Dose Admin Acetaminophen 650 mg 07/03/20 13:08 Acetaminophen Tab 325 Mg Tab PO Q6HR PRN Fever and/ or Pain Albuterol Sulfate 2.5 mg 07/03/20 13:08 Albuterol Nebulized 2.5 Mg/3 Ml INHALATION RT-Q4H PRN Shortness Of Breath Albuterol/Ipratropium 3 ml 07/03/20 16:00 07/04/20 07:49 Ipratropium-Albuterol 3 Ml Neb INHALATION 3 ml RT-QID ALONSO Administration Allopurinol 100 mg 07/03/20 13:15 07/04/20 09:27 Allopurinol 100 Mg Tab PO 100 mg BID ALONSO Administration Artificial Tears 1 drops 07/03/20 18:00 07/04/20 09:37 Artificial Tears-Hypromellose Drops 15 Ml Btl BOTH EYES 1 drops QID ALONSO Administration Baclofen 10 mg 07/03/20 13:08 Baclofen 10 Mg Tab PO DAILY PRN Muscle Pain Baclofen 20 mg 07/03/20 21:00 07/03/20 20:33 Baclofen 10 Mg Tab PO 20 mg HS ALONSO Administration Bisacodyl 10 mg 07/03/20 13:08 Bisacodyl 10 Mg Supp RECTAL Q72H PRN Constipation Budesonide/Formoterol Fumarate 2 puff 07/03/20 08:00 07/04/20 07:49 Symbicort 80-4.5 Mcg Inhaler INHALATION 2 puff RT-BID ALONSO Administration Bupropion HCl 150 mg 07/03/20 13:15 07/04/20 09:27 Bupropion Xl 150 Mg Tab.Er.24h PO 150 mg DAILY ALONSO Administration Calcium Carbonate/Glycine 500 mg 07/03/20 21:00 07/04/20 09:26 Calcium Carbonate 500 Mg Chewable PO 500 mg BID ALONSO Administration Carbamazepine 200 mg 07/03/20 13:08 07/04/20 09:26 Carbamazepine 200 Mg Tab PO 200 mg TID ALONSO Administration Carvedilol 12.5 mg 07/03/20 17:30 07/04/20 06:26 Carvedilol 12.5 Mg Tab PO 12.5 mg BID-W/MEALS ALONSO Administration Clonazepam 0.5 mg 07/03/20 13:08 07/04/20 09:27 Clonazepam 0.5 Mg Tab PO 0.5 mg TID ALONSO Administration Clopidogrel Bisulfate 75 mg 07/04/20 09:00 07/04/20 09:28 Clopidogrel 75 Mg Tab PO 75 mg DAILY ALONSO Administration Diclofenac Sodium 4 gm 07/03/20 13:08 Diclofenac Sodium Gel 100 Gm Tube TOPICAL BID PRN Pain Fenofibrate 160 mg 07/04/20 09:00 07/04/20 09:26 Fenofibrate 160 Mg Tab PO 160 mg DAILY ALONSO Administration Finasteride 5 mg 07/03/20 13:15 07/04/20 09:27 Finasteride 5 Mg Tab PO 5 mg DAILY ALONSO Administration Glucose 4 gm 07/03/20 13:08 Dextrose 4 Gm Chewable PO Q10M PRN Blood Sugar - Low Hydralazine HCl 25 mg 07/03/20 21:44 Hydralazine Hcl 25 Mg Tab PO QID PRN Blood Pressure - High Hydrocortisone 1 applic 07/03/20 13:08 Hydrocortisone 2.5% Rectal Cream 30 Gm Tube RECTAL Q6H PRN Anal Inflammation Sodium Chloride 1,000 mls @ 75 mls/hr 07/03/20 13:30 07/04/20 06:29 Saline 0.45% IV 75 mls/hr .[id number] ALONSO Administration Ceftriaxone Sodium 1 gm/ 50 mls @ 100 mls/hr 07/03/20 13:30 07/04/20 09:25 Sodium Chloride IVPB 100 mls/hr Q24HR ALONSO Administration Insulin Aspart 15 unit 07/03/20 13:08 07/04/20 06:59 Insulin Aspart (Novolog) 100 Unit/Ml Vial SQ 15 unit AC-TID ALONSO Administration Insulin Aspart 0 unit 07/03/20 13:13 07/04/20 07:00 Insulin Aspart (Novolog) 100 Unit/Ml Vial SQ 1 unit ACHS ALONSO Administration Protocol Insulin Detemir 100 unit 07/03/20 21:00 07/03/20 20:35 Insulin Detemir (Levemir) 100 Unit/Ml Syr SQ 100 unit HS ALONSO Administration Levothyroxine Sodium 50 mcg 07/03/20 13:15 07/04/20 06:25 Levothyroxine 50 Mcg Tab PO 50 mcg 0630 ALONSO Administration Lisinopril 10 mg 07/03/20 13:15 07/04/20 09:27 Lisinopril 10 Mg Tab PO 10 mg DAILY ALONSO Administration Metformin HCl 1,000 mg 07/03/20 21:00 07/04/20 09:28 Metformin 500 Mg Tab PO 1,000 mg BID ALONSO Administration Methylprednisolone Sodium Succinate 40 mg 07/03/20 13:30 07/04/20 09:29 Methylprednisolone Sod Succi 40 Mg/Ml 1 Ml Vial IV 40 mg Q12HR ALONSO Administration Multivitamins 1 each 07/04/20 09:00 07/04/20 09:26 Multivitamins, Thera 1 Each Tab PO 1 each DAILY ALONSO Administration Naloxone HCl 0.2 mg 07/02/20 23:02 Naloxone 0.4 Mg/Ml 1 Ml Vial IV Q2M PRN Opioid Reversal Pantoprazole Sodium 40 mg 07/03/20 13:15 07/04/20 09:28 Pantoprazole 40 Mg Tablet PO 40 mg DAILY ALONSO Administration Polyethylene Glycol 17 gm 07/03/20 13:15 07/04/20 09:25 Polyethylene Glycol 3350 17 Gm Powd.Pack PO 17 gm DAILY ALONSO Administration Pravastatin Sodium 80 mg 07/03/20 21:00 07/03/20 20:33 Pravastatin Sodium 80 Mg Tab PO 80 mg HS ALONSO Administration Pregabalin 100 mg 07/03/20 16:00 07/04/20 09:28 Pregabalin 100 Mg Cap PO 100 mg TID ALONSO Administration Senna/Docusate Sodium 1 each 07/03/20 13:15 07/04/20 09:28 Sennosides-Docusate Sodium 1 Each Tab PO 1 each DAILY ALONSO Administration Sertraline HCl 200 mg 07/03/20 13:15 07/04/20 09:27 Sertraline 100 Mg Tab PO 200 mg DAILY ALONSO Administration Simethicone 120 mg 07/03/20 21:00 07/04/20 09:26 Simethicone 80 Mg Chewable PO 120 mg BID ALONSO Administration Sodium Biphosphate/Sodium Phosphate 133 ml 07/03/20 13:08 Na Phos,M-B/Na Phos,Di-Ba 133 Ml Enema RECTAL Q98H PRN Constipation Tamsulosin HCl 0.8 mg 07/03/20 21:00 07/03/20 20:34 Tamsulosin 0.4 Mg Cap.Er.24h PO 0.8 mg HS ALONSO Administration Ziprasidone 20 mg 07/03/20 16:00 07/04/20 09:26 Ziprasidone 20 Mg Cap PO 20 mg TID ALONSO Administration Objective - Vital Signs Vital signs: Vital Signs Temp 98.0 F 07/04/20 08:00 Pulse 74 07/04/20 08:02 Resp 20 07/04/20 08:00 BP 168/69 07/04/20 08:00 Pulse Ox 96 07/04/20 08:00 Intake & Output 07/03/20 07/04/20 07/04/20 18:59 06:59 18:59 Intake Total 600 Output Total 1400 1475 Balance -1400 -875 Weight 116.5 kg Intake: Intake, IV Titration 600 Amount Sodium Chloride 0.45% 1, 600 000 ml @ 75 mls/hr IV . [id number] [facility] Rx#:[id number] Output: Urine 1400 1475 Other: Voiding Method Indwelling Catheter Indwelling Catheter - Labs CBC & Chem 7: 07/03/20 10:08 07/03/20 10:08 Labs: Abnormal Lab Results - Last 24 Hours (Table) 07/03/20 07/03/20 07/03/20 Range/Units 10:08 10:08 11:58 RBC 3.82 L (4.30-5.90) m/uL Hgb 11.1 L (13.0-17.5) gm/dL Hct 33.2 L (39.0-53.0) % RDW 16.0 H (11.5-15.5) % Lymphocytes # 0.8 L (1.0-4.8) k/uL Sodium 146 H (137-145) mmol/L Potassium 5.4 H (3.5-5.1) mmol/L Chloride 108 H (98-107) mmol/L BUN 43 H (9-20) mg/dL Glucose 163 H (74-99) mg/dL POC Glucose (mg/dL) 154 H (75-99) mg/dL 07/03/20 07/03/20 07/04/20 Range/Units 17:08 20:24 01:10 RBC (4.30-5.90) m/uL Hgb (13.0-17.5) gm/dL Hct (39.0-53.0) % RDW (11.5-15.5) % Lymphocytes # (1.0-4.8) k/uL Sodium (137-145) mmol/L Potassium (3.5-5.1) mmol/L Chloride (98-107) mmol/L BUN (9-20) mg/dL Glucose (74-99) mg/dL POC Glucose (mg/dL) 155 H 169 H 155 H (75-99) mg/dL 07/04/20 Range/Units 06:47 RBC (4.30-5.90) m/uL Hgb (13.0-17.5) gm/dL Hct (39.0-53.0) % RDW (11.5-15.5) % Lymphocytes # (1.0-4.8) k/uL Sodium (137-145) mmol/L Potassium (3.5-5.1) mmol/L Chloride (98-107) mmol/L BUN (9-20) mg/dL Glucose (74-99) mg/dL POC Glucose (mg/dL) 148 H (75-99) mg/dL Microbiology - Last 24 Hours (Table) 07/03/20 21:43 Urine Culture - Preliminary Urine,Catheterized 07/02/20 22:45 Blood Culture - Preliminary Blood No Growth after 24 hours 07/02/20 22:30 Blood Culture - Preliminary Blood No Growth after 24 hours Assessment and Plan Assessment: Acute urinary tract infection, associated with indwelling Altman catheter. Sepsis with low-grade fever, Tachypnea and relative leukocytosis Metabolic encephalopathy secondary to above, improving Acute COPD exacerbation Chronic urinary retention, status post indwelling Altman catheter Sacral pressure ulcer elevated troponin, mostly secondary to kidney disease Essential hypertension Type 2 diabetes mellitus History of DVT/PE Sleep apnea on CPAP/BiPAP Hypothyroidism Chronic hypoxic respiratory failure on 5 L at night and 3 L a day at home Peripheral neuropathy History of gait dysfunction and frequent falls chronic back pain History of gout Benign prostatic hypertrophy CVA with right leg hemiparesis And chronic slurred speech Plan: this is a pleasant 70 years old male who presents with UTI, metabolic en cephalopathy and COPD exacerbation. c/w ceftriaxone, follow-up urine culture. Change fluids to half normal saline at 75 mL/h. monitor Na level and creatinine , follow-up with urologist. Follow-up recommendation by [employer] mainframe systems programmer who recommended conservative management currently Consult wound consult for sacral pressure ulcer Labs and medication were reviewed.. Continue same treatment. Continue with symptomatic treatment. Resume home medication. Monitor lytes and vitals. DVT and GI prophylaxis. Further recommendations depends on the clinical course of the patient DVT prophylaxis: Subcutaneous heparin GI Prophylaxis: Pepcid PT/OT: Pending. Patient is supposed to go back to [facility] Prognosis is guarded
[2020-07-04 10:40] LABS: African American GFR (CKD) >90 (>60 ml/min/1.73 sqM); Anion Gap 10 mmol/L; Blood Urea Nitrogen 34 mg/dL (9-20); Calcium 9.9 mg/dL (8.4-10.2); Carbon Dioxide 28 mmol/L (22-30); Chloride 107 mmol/L (98-107); Glucose 111 mg/dL (74-99); Non-African American GFR(CKD) 85 (>60 ml/min/1.73 sqM); Potassium 4.8 mmol/L (3.5-5.1); Sodium 145 mmol/L (137-145)
[2020-07-04 11:13] VITALS: BMI 36.8
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
[2020-07-04 11:53] LABS: Glucose,Whole Blood 126 mg/dL (75-99)
[2020-07-04] MEDS: predniSONE 10 MG TAB PO SCH (12:31)
[2020-07-04] MEDS: HYDROPHILIC CREAM 180 GM TUBE TOPICAL SCH (12:32)
--- NOTE | 2020-07-04 13:06 | P.PN ---
Subjective Progress Note Date: 07/04/20 HISTORY OF PRESENT ILLNESS: 07/03/2020 This is a 70-year-old male with a past medical history significant for myocardial infarction, TIA, PE, DVT, obstructive sleep apnea, diabetes, hypertension, and hyperlipidemia. Patient follows with physicians at the [place] [facility]. We have been asked to see the patient in consultation for abnormal troponins. Patient examined at the bedside. Patient is somewhat confused and is a poor historian. Patient was brought to the hospital via EMS from an extended care facility. According to the ER physician's note, the patients has noticed the patient has been sleeping more than normal. The patient was diagnosed with a urinary tract infection and started on antibiotics. He denies chest pain or pressure. He denies shortness of breath. EKG reveals sinus mechanism with first-degree AV block. No signs of acute ischemia. Left anterior fascicular block. Laboratory data: WBC 10.5. Hemoglobin 10.2. Platelet count 189. Sodium 143. Potassium 5.5. BUN 50. Creatinine 1.41. Lactic acid 0.9. Troponin 0.048. 0.047. 0.047. Current home cardiac medications include pravastatin 80 mg daily, Plavix 75 mg daily, lisinopril 10 mg daily, Lopid 600 mg twice a day, Lasix 20 mg daily, Coreg 12.5 mg twice a day Most recent echocardiogram obtained in 2018 revealed ejection fraction 55-60%. 07/04/2020 Patient examined this morning at the bedside. Patient reports right-sided chest discomfort this morning. He denies shortness of breath. EKG obtained and reviewed with no acute ischemic changes. BUN 34. Creatinine 0.91. Echocardiogram completed revealed ejection fraction 55-60%, mild tricuspid regurgitation, mild pulmonary hypertension, moderate aortic stenosis. PHYSICAL EXAM: VITAL SIGNS: Reviewed. GENERAL: Well-developed in no acute distress. HEENT: Head is normocephalic. Pupils are equal, round. Sclerae anicteric. Mucous membranes of the mouth are moist. Neck supple. No JVD or thyromegaly LUNGS: Respirations even and unlabored. Lungs diminished bilaterally. HEART: Regular rate and rhythm. S1 and S2 heard. Systolic murmur noted. ABDOMEN: Soft. Nondistended. Nontender. EXTREMITIES: Normal range of motion. No clubbing or cyanosis. Peripheral pulses intact. No lower extremity edema NEUROLOGIC: Awake and alert. Oriented x 1-2. ASSESSMENT: Acute urinary tract infection Acute kidney injury Abnormal troponins, not suggestive of myocardial injury Hyperkalemia Hypertension Hyperlipidemia History of PE/DVT History of myocardial infarction, 10 years ago, exact details unknown Obstructive sleep apnea Moderate aortic stenosis Right-sided chest pain, atypical PLAN: Continue current cardiac medications Obtain troponin level Further recommendations pending patient's course Nurse practitioner note has been reviewed by physician. Signing provider agrees with the documented findings, assessment, and plan of care. Objective - Vital Signs Vital signs: Vital Signs Temp 98.0 F 07/04/20 08:00 Pulse 76 07/04/20 11:40 Resp 20 07/04/20 08:00 BP 168/69 07/04/20 08:00 Pulse Ox 96 07/04/20 08:00 Intake & Output 07/03/20 07/04/20 07/04/20 18:59 06:59 18:59 Intake Total 600 Output Total 1400 1475 500 Balance -1400 -875 -500 Weight 116.5 kg 116.5 kg Intake: Intake, IV Titration 600 Amount Sodium Chloride 0.45% 1, 600 000 ml @ 75 mls/hr IV . [id number] Rx#:[id number] Output: Urine 1400 1475 500 Other: Voiding Method Indwelling Catheter Indwelling Catheter Indwelling Catheter - Labs CBC & Chem 7: 07/03/20 10:08 07/04/20 09:54 Labs: Abnormal Lab Results - Last 24 Hours (Table) 07/03/20 07/03/20 07/04/20 Range/Units 17:08 20:24 01:10 BUN (9-20) mg/dL Glucose (74-99) mg/dL POC Glucose (mg/dL) 155 H 169 H 155 H (75-99) mg/dL Troponin I (0.000-0.034) ng/mL 07/04/20 07/04/20 07/04/20 Range/Units 06:47 09:54 09:54 BUN 34 H (9-20) mg/dL Glucose 111 H (74-99) mg/dL POC Glucose (mg/dL) 148 H (75-99) mg/dL Troponin I 0.060 H* (0.000-0.034) ng/mL 07/04/20 Range/Units 11:52 BUN (9-20) mg/dL Glucose (74-99) mg/dL POC Glucose (mg/dL) 126 H (75-99) mg/dL Troponin I (0.000-0.034) ng/mL Microbiology - Last 24 Hours (Table) 07/03/20 21:43 Urine Culture - Preliminary Urine,Catheterized 07/02/20 22:45 Blood Culture - Preliminary Blood No Growth after 24 hours 07/02/20 22:30 Blood Culture - Preliminary Blood No Growth after 24 hours
[2020-07-04 16:51] LABS: Glucose,Whole Blood 198 mg/dL (75-99)
[2020-07-04 21:02] LABS: Glucose,Whole Blood 206 mg/dL (75-99)
[2020-07-04] MEDS: BACLOFEN 10 MG TAB PO SCH (21:19)
[2020-07-04] MEDS: INSULIN DETEMIR (LEVEMIR) 100 UNIT/ML SYR SQ SCH (21:19)
[2020-07-04] MEDS: TAMSULOSIN 0.4 MG CAP.ER.24H PO SCH (21:20)
[2020-07-04] MEDS: PRAVASTATIN SODIUM 80 MG TAB PO SCH (21:38)
[2020-07-05] MEDS: carvediloL 12.5 MG TAB PO SCH (06:24)
[2020-07-05] MEDS: SODIUM CHLORIDE 0.45% 1,000 ML IV SCH (06:24)
[2020-07-05] MEDS: LEVOTHYROXINE 50 MCG TAB PO SCH (06:24)
[2020-07-05] MEDS: IPRATROPIUM-ALBUTEROL 3 ML NEB INHALATION SCH ×2 (07:08→11:39)
[2020-07-05] MEDS: SYMBICORT 80-4.5 MCG INHALER INHALATION SCH (07:08)
[2020-07-05 07:30] LABS: Glucose,Whole Blood 98 mg/dL (75-99)
[2020-07-05] MEDS: INSULIN ASPART (NovoLOG) 100 UNIT/ML VIAL SQ SCH ×4 (07:46→12:08)
[2020-07-05] MEDS: predniSONE 10 MG TAB PO SCH (08:00)
[2020-07-05] MEDS: carBAMazepine 200 MG TAB PO SCH ×2 (08:00→15:30)
[2020-07-05] MEDS: CLOPIDOGREL 75 MG TAB PO SCH (08:01)
[2020-07-05] MEDS: SENNOSIDES-DOCUSATE SODIUM 1 EACH TAB PO SCH (08:01)
[2020-07-05] MEDS: lisinopriL 10 MG TAB PO SCH (08:01)
[2020-07-05] MEDS: FENOFIBRATE 160 MG TAB PO SCH (08:01)
[2020-07-05] MEDS: FINASTERIDE 5 MG TAB PO SCH (08:01)
[2020-07-05] MEDS: CALCIUM CARBONATE 500 MG CHEWABLE PO SCH (08:01)
[2020-07-05] MEDS: PREGABALIN 100 MG CAP PO SCH ×2 (08:01→15:30)
[2020-07-05] MEDS: allopurinoL 100 MG TAB PO SCH (08:01)
[2020-07-05] MEDS: PANTOPRAZOLE 40 MG TABLET PO SCH (08:01)
[2020-07-05] MEDS: SERTRALINE 100 MG TAB PO SCH (08:01)
[2020-07-05] MEDS: clonazePAM 0.5 MG TAB PO SCH ×2 (08:01→15:30)
[2020-07-05] MEDS: MULTIVITAMINS, THERA 1 EACH TAB PO SCH (08:01)
[2020-07-05] MEDS: metFORMIN 500 MG TAB PO SCH (08:01)
[2020-07-05] MEDS: buPROPion XL 150 MG TAB.ER.24H PO SCH (08:02)
[2020-07-05] MEDS: polyethylene glycoL 3350 17 GM POWD.PACK PO SCH (08:02)
[2020-07-05] MEDS: SIMETHICONE 80 MG CHEWABLE PO SCH (08:03)
[2020-07-05] MEDS: ZIPRASIDONE 20 MG CAP PO SCH ×2 (08:03→15:32)
[2020-07-05] MEDS: ARTIFICIAL TEARS-HYPROMELLOSE DROPS 15 ML BTL BOTH EYES SCH ×2 (08:16→12:09)
[2020-07-05] MEDS ORDERED: FUROSEMIDE 20 MG TAB PO SCH (09:00)
--- NOTE | 2020-07-05 10:54 | P.DS ---
Providers Date of admission: 07/02/20 23:02 Attending physician: Joshua Summers MD Consults: 07/02/20 23:03 Consult Physician Routine Consulting Provider: [facility] Consult Reason/Comments: elevated trop - chronic Do you want consulting provider notified?: Yes Consult Physician Routine Consulting Provider: Robert Bazan Consult Reason/Comments: CAUTI Do you want consulting provider notified?: Yes Primary care physician: Jasper Jaime [facility] Course: Diagnoses: Acute urinary tract infection, associated with indwelling Altman catheter. Sepsis with low-grade fever, Tachypnea and relative leukocytosis Metabolic encephalopathy secondary to above, improved Acute COPD exacerbation number improvement Chronic urinary retention, status post indwelling Altman catheter Sacral pressure ulcer, stage II. elevated troponin, mostly secondary to kidney disease Essential hypertension Type 2 diabetes mellitus History of DVT/PE Sleep apnea on CPAP/BiPAP Hypothyroidism Chronic hypoxic respiratory failure on 5 L at night and 3 L a day at home Peripheral neuropathy History of gait dysfunction and frequent falls chronic back pain History of gout Benign prostatic hypertrophy CVA with right leg hemiparesis And chronic slurred speech Hospital course: s a pleasant 70 years old male with past medical history of COPD, CVA, diabetes mellitus, DVT, GERD, hypertension, myocardial infarction, pulmonary embolism. He is a patient of Dr. Gutierrez. But patient states he goes to the [facility] clinic He was recently hospitalized 05/23-05/28 for UTI and hyperglycemia. This time Patient was transferred from [facility] where his Altman catheter was changed there. Patient is awake and alert to time and place and person, he have some difficulty with his memory but he answered questions appropriately and follow commands, he is calm. Patient states that he was sent to the hospital because of his confusion. Patient was found to have acute urinary tract infection. The patient was treated with ceftriaxone and he showed interval improvement and on the day of discharge he is fully awake and oriented with no confusion, he was so pleasant and thankful and tissue counts within medical team for appreciation as a sign of his improvement. He denies chest pain or dyspnea or abdominal pain, no nausea vomiting or coughing, no diarrhea. No fever Patient is been evaluated also by urologist Dr. Greene who recommended TURP for him but he denies surgery and preferred to continue with Altman and medical management. His urine cultures came back negative and patient will be discharged on Cipro for [address] Cedillo recommendation also patient has been treated for COPD and he is doing well and it can be tapered prednisone upon discharge food service worker evaluated the patient for high troponin which is thought secondary to his kidney disease, possible demand/supply mismatch. No further cardiac workup and patient is asymptomatic upon discharge Patient was cleared for discharge by food service worker and urologist as above Problems and management plan were discussed with the patient and he verbalized understanding and acceptance Patient was found stable and can be discharged home however he needs follow-up as an outpatient. Patient was instructed to follow up with PCP within one week and patient agrees. Patient also instructed to follow up with food service worker Dr. Gillette in 1-[address] correa in 1-2 weeks and he agrees Physical exam Gen: patient is a AAOx3, no distress CVS: S1-S2, RRR, no murmur Lungs: B/L CTA, no wheezing Abdomen: soft, no distention, no tenderness, positive bowel sounds. Altman catheter is in place Extremity: no leg edema or induration Time spent more than 35 minutes Patient Condition at Discharge: Serious Plan - Discharge Summary Discharge Rx Participant: No New Discharge Prescriptions: No Action Levothyroxine Sodium [Synthroid] 50 mcg PO DAILY Finasteride [Proscar] 5 mg PO DAILY Sertraline [Zoloft] 200 mg PO DAILY allopurinoL [Zyloprim] 100 mg PO BID Ergocalciferol [Vitamin D2 (DRISDOL)] 100,000 unit PO MO Tamsulosin [Flomax] 0.8 mg PO HS Pravastatin Sodium [Pravachol] 80 mg PO HS Clopidogrel Bisulfate [Plavix] 75 mg PO DAILY #20 tab gemfibroziL [Lopid] 600 mg PO BID metFORMIN HCL 1,000 mg PO BID Albuterol Sulfate [Proair Hfa] 2 puff INHALATION RT-Q4H PRN PRN Reason: Shortness Of Breath Diclofenac Sodium Gel [Voltaren Gel] 4 gram TOPICAL BID PRN PRN Reason: Pain Baclofen [Lioresal] 20 mg PO HS Baclofen [Lioresal] 10 mg PO BID@0800,1300 Loratadine [Claritin] 10 mg PO DAILY Pantoprazole Sodium [Protonix] 40 mg PO DAILY Baclofen 10 mg PO DAILY PRN PRN Reason: Muscle Pain lisinopriL [Zestril] 10 mg PO DAILY Ipratropium-Albuterol Nebulize [Duoneb 0.5 mg-3 mg/3 ml Soln] 3 ml INHALATION RT-QID #1 ampul.neb Acetaminophen Tab [Tylenol] 650 mg PO Q6HR PRN tab PRN Reason: Fever And/ Or Pain Ziprasidone [Geodon] 20 mg PO TID #10 cap Pregabalin [Lyrica] 100 mg PO TID #10 cap bisacodyL [Dulcolax] 10 mg RECTAL Q72H PRN PRN Reason: Constipation buPROPion HCL [Wellbutrin XL] 150 mg PO DAILY Calcium Carbonate [Tums] 500 mg PO BID carBAMazepine [TEGretol] 200 mg PO TID Carboxymethylcellulose Sodium [Refresh Tears] 1 drop BOTH EYES QID carvediloL [Coreg*] 12.5 mg PO BID-W/MEALS clonazePAM [KlonoPIN] 0.5 mg PO TID Dextrose Chew [Glucose Chew Tab] 4 gm PO Q10M PRN PRN Reason: Blood Sugar - Low Fluticasone/Vilanterol [Breo Ellipta 100-25 Mcg Inhaler] 1 puff INHALATION RT-DAILY Furosemide [Lasix] 20 mg PO DAILY Hydrocortisone Cream [Hydrocortisone 2.5% Cream] 1 applic TOPICAL Q6H PRN PRN Reason: Anal Inflammation Insulin Glargine,Hum.rec.anlog [Basaglar Kwikpen U-100] 120 unit SQ HS INSULIN LISPRO (HumaLOG) [humaLOG] 30 units SQ AC-TID Magnesium Hydroxide [Milk of Magnesia] 2,400 mg PO Q48H PRN PRN Reason: Constipation Multivits,Th W-Ca,Fe,Oth Min [Therapeutic M] 1 tab PO DAILY Na Phos,M-B/Na Phos,Di-Ba [Fleet Adult] 133 ml RECTAL Q98H PRN PRN Reason: Constipation Polyethylene Glycol 3350 [Miralax] 17 gm PO DAILY Sennosides/Docusate Sodium [Senna Plus 8.6-50 mg Tablet] 1 tab PO DAILY Simethicone [Gas-X] 125 mg PO BID Discharge Medication List Ergocalciferol [Vitamin D2 (DRISDOL)] 100,000 unit PO MO 12/02/14 [History] Finasteride [Proscar] 5 mg PO DAILY 12/02/14 [History] Levothyroxine Sodium [Synthroid] 50 mcg PO DAILY 12/02/14 [History] Pravastatin Sodium [Pravachol] 80 mg PO HS 12/02/14 [History] Sertraline [Zoloft] 200 mg PO DAILY 12/02/14 [History] Tamsulosin [Flomax] 0.8 mg PO HS 12/02/14 [History] allopurinoL [Zyloprim] 100 mg PO BID 12/02/14 [History] Clopidogrel Bisulfate [Plavix] 75 mg PO DAILY #20 tab 10/01/15 [Rx] gemfibroziL [Lopid] 600 mg PO BID 12/21/16 [History] metFORMIN HCL 1,000 mg PO BID 03/06/18 [History] Albuterol Sulfate [Proair Hfa] 2 puff INHALATION RT-Q4H PRN 08/20/18 [History] Diclofenac Sodium Gel [Voltaren Gel] 4 gram TOPICAL BID PRN 08/20/18 [History] Baclofen [Lioresal] 10 mg PO BID@0800,1300 10/21/18 [History] Baclofen [Lioresal] 20 mg PO HS 10/21/18 [History] Loratadine [Claritin] 10 mg PO DAILY 10/21/18 [History] Pantoprazole Sodium [Protonix] 40 mg PO DAILY 10/21/18 [History] Baclofen 10 mg PO DAILY PRN 04/24/19 [History] lisinopriL [Zestril] 10 mg PO DAILY 04/24/19 [History] Acetaminophen Tab [Tylenol] 650 mg PO Q6HR PRN tab 04/28/19 [Rx] Ipratropium-Albuterol Nebulize [Duoneb 0.5 mg-3 mg/3 ml Soln] 3 ml INHALATION RT-QID #1 ampul.neb 04/28/19 [Rx] Pregabalin [Lyrica] 100 mg PO TID #10 cap 04/28/19 [Rx] Ziprasidone [Geodon] 20 mg PO TID #10 cap 04/28/19 [Rx] Calcium Carbonate [Tums] 500 mg PO BID 07/03/20 [History] Carboxymethylcellulose Sodium [Refresh Tears] 1 drop BOTH EYES QID 07/03/20 [History] Dextrose Chew [Glucose Chew Tab] 4 gm PO Q10M PRN 07/03/20 [History] Fluticasone/Vilanterol [Breo Ellipta 100-25 Mcg Inhaler] 1 puff INHALATION RT- DAILY 07/03/20 [History] Furosemide [Lasix] 20 mg PO DAILY 07/03/20 [History] Hydrocortisone Cream [Hydrocortisone 2.5% Cream] 1 applic TOPICAL Q6H PRN 07/03/20 [History] INSULIN LISPRO (HumaLOG) [humaLOG] 30 units SQ AC-TID 07/03/20 [History] Insulin Glargine,Hum.rec.anlog [Basaglar Kwikpen U-100] 120 unit SQ HS 07/03/20 [History] Magnesium Hydroxide [Milk of Magnesia] 2,400 mg PO Q48H PRN 07/03/20 [History] Multivits,Th W-Ca,Fe,Oth Min [Therapeutic M] 1 tab PO DAILY 07/03/20 [History] Na Phos,M-B/Na Phos,Di-Ba [Fleet Adult] 133 ml RECTAL Q98H PRN 07/03/20 [History] Polyethylene Glycol 3350 [Miralax] 17 gm PO DAILY 07/03/20 [History] Sennosides/Docusate Sodium [Senna Plus 8.6-50 mg Tablet] 1 tab PO DAILY 07/03/20 [History] Simethicone [Gas-X] 125 mg PO BID 07/03/20 [History] bisacodyL [Dulcolax] 10 mg RECTAL Q72H PRN 07/03/20 [History] buPROPion HCL [Wellbutrin XL] 150 mg PO DAILY 07/03/20 [History] carBAMazepine [TEGretol] 200 mg PO TID 07/03/20 [History] carvediloL [Coreg*] 12.5 mg PO BID-W/MEALS 07/03/20 [History] clonazePAM [KlonoPIN] 0.5 mg PO TID 07/03/20 [History] Follow up Appointment(s)/Referral(s): Jasper Jaime MD [Primary Care Provider] - 1-2 days [facility] [NON-STAFF] - As Needed
[2020-07-05 11:18] VITALS: BP 131/64; TEMP 98
[2020-07-05 11:41] VITALS: RESP 16
[2020-07-05 11:49] VITALS: PULSE 60
[2020-07-05 12:11] LABS: Glucose,Whole Blood 145 mg/dL (75-99)
[2020-07-05] MEDS: HYDROPHILIC CREAM 180 GM TUBE TOPICAL SCH (13:15)
--- NOTE | 2020-07-05 14:02 | P.PN ---
Subjective Progress Note Date: 07/05/20 HISTORY OF PRESENT ILLNESS: 07/03/2020 This is a 70-year-old male with a past medical history significant for myocardial infarction, TIA, PE, DVT, obstructive sleep apnea, diabetes, hypertension, and hyperlipidemia. Patient follows with physicians at the [place] clinic. We have been asked to see the patient in consultation for abnormal troponins. Patient examined at the bedside. Patient is somewhat confused and is a poor historian. Patient was brought to the hospital via EMS from an extended care facility. According to the ER physician's note, the patients has noticed the patient has been sleeping more than normal. The patient was diagnosed with a urinary tract infection and started on antibiotics. He denies chest pain or pressure. He denies shortness of breath. EKG reveals sinus mechanism with first-degree AV block. No signs of acute ischemia. Left anterior fascicular block. Laboratory data: WBC 10.5. Hemoglobin 10.2. Platelet count 189. Sodium 143. Potassium 5.5. BUN 50. Creatinine 1.41. Lactic acid 0.9. Troponin 0.048. 0.047. 0.047. Current home cardiac medications include pravastatin 80 mg daily, Plavix 75 mg daily, lisinopril 10 mg daily, Lopid 600 mg twice a day, Lasix 20 mg daily, Coreg 12.5 mg twice a day Most recent echocardiogram obtained in 2018 revealed ejection fraction 55-60%. 07/04/2020 Patient examined this morning at the bedside. Patient reports right-sided chest discomfort this morning. He denies shortness of breath. EKG obtained and reviewed with no acute ischemic changes. BUN 34. Creatinine 0.91. Echocardiogram completed revealed ejection fraction 55-60%, mild tricuspid regurgitation, mild pulmonary hypertension, moderate aortic stenosis. 07/05/2020 Patient examined this morning at the bedside. Patient states he is tired and did not sleep well last night. He denies shortness of breath. Denies cough or congestion. He denies any further episodes of chest discomfort. PHYSICAL EXAM: VITAL SIGNS: Reviewed. GENERAL: Well-developed in no acute distress. HEENT: Head is normocephalic. Pupils are equal, round. Sclerae anicteric. Mucous membranes of the mouth are moist. Neck supple. No JVD or thyromegaly LUNGS: Respirations even and unlabored. Lungs diminished bilaterally. HEART: Regular rate and rhythm. S1 and S2 heard. Systolic murmur noted. ABDOMEN: Soft. Nondistended. Nontender. EXTREMITIES: Normal range of motion. No clubbing or cyanosis. Peripheral pulses intact. No lower extremity edema NEUROLOGIC: Awake and alert. Oriented x 1-2. ASSESSMENT: Acute urinary tract infection Acute kidney injury Abnormal troponins, not suggestive of myocardial injury Hyperkalemia Hypertension Hyperlipidemia History of PE/DVT History of myocardial infarction, 10 years ago, exact details unknown Obstructive sleep apnea Moderate aortic stenosis Right-sided chest pain, atypical PLAN: Continue current cardiac medications Patient is stable for discharge today from a cardiac standpoint. We will sign off. Please reconsult if needed. Nurse practitioner note has been reviewed by physician. Signing provider agrees with the documented findings, assessment, and plan of care. Objective - Vital Signs Vital signs: Vital Signs Temp 98 F 07/05/20 11:17 Pulse 60 07/05/20 11:49 Resp 16 07/05/20 11:49 BP 131/64 07/05/20 11:17 Pulse Ox 95 07/05/20 11:17 Intake & Output 07/04/20 07/05/20 07/05/20 18:59 06:59 18:59 Intake Total 480 1800 250 Output Total 800 825 Balance -320 975 250 Weight 116.5 kg 122 kg Intake: Intake, IV Titration 600 Amount Sodium Chloride 0.45% 1, 600 000 ml @ 75 mls/hr IV . [id number] [facility] Rx#:[id number] Oral 480 1200 250 Output: Urine 800 825 Other: Voiding Method Indwelling Catheter Indwelling Catheter Indwelling Catheter # Bowel Movements 1 - Labs CBC & Chem 7: 07/03/20 10:08 07/04/20 09:54 Labs: Abnormal Lab Results - Last 24 Hours (Table) 07/04/20 07/04/20 07/05/20 Range/Units 16:49 20:42 11:50 POC Glucose (mg/dL) 198 H 206 H 145 H (75-99) mg/dL Microbiology - Last 24 Hours (Table) 07/02/20 22:45 Blood Culture - Preliminary Blood No Growth after 48 hours 07/02/20 22:30 Blood Culture - Preliminary Blood No Growth after 48 hours 07/03/20 21:43 Urine Culture - Final Urine,Catheterized
== END 2020-07-05 15:30 | DRG 698 ==
LOC: EC 21:34 → 3SCARD 23:02
PROVIDERS: ADMIT Internal Medicine; ATTEND Internal Medicine
DX: T83.511A Infection and inflammatory reaction due to indwelling urethral catheter, initial encounter (principal); A41.9 Sepsis, unspecified organism; G93.41 Metabolic encephalopathy; E87.2 Acidosis; I69.354 Hemiplegia and hemiparesis following cerebral infarction affecting left non-dominant side; I69.351 Hemiplegia and hemiparesis following cerebral infarction affecting right dominant side; J44.1 Chronic obstructive pulmonary disease with (acute) exacerbation; J96.11 Chronic respiratory failure with hypoxia; N17.9 Acute kidney failure, unspecified; Y84.6 Urinary catheterization as the cause of abnormal reaction of the patient, or of later complication, without mention of misadventure at the time of the procedure; E03.9 Hypothyroidism, unspecified; E11.42 Type 2 diabetes mellitus with diabetic polyneuropathy; E11.622 Type 2 diabetes mellitus with other skin ulcer; E66.01 Morbid (severe) obesity due to excess calories; Z68.38 Body mass index [BMI] 38.0-38.9, adult; E78.5 Hyperlipidemia, unspecified; E86.0 Dehydration; F32.9 Major depressive disorder, single episode, unspecified; F43.10 Post-traumatic stress disorder, unspecified; G47.33 Obstructive sleep apnea (adult) (pediatric); Z99.89 Dependence on other enabling machines and devices; Z99.81 Dependence on supplemental oxygen; I69.328 Other speech and language deficits following cerebral infarction; Z20.822 Contact with and (suspected) exposure to COVID-19; G89.29 Other chronic pain; M54.9 Dorsalgia, unspecified; I10 Essential (primary) hypertension; I25.2 Old myocardial infarction; I35.0 Nonrheumatic aortic (valve) stenosis; I44.0 Atrioventricular block, first degree; I44.4 Left anterior fascicular block; L89.152 Pressure ulcer of sacral region, stage 2; L98.499 Non-pressure chronic ulcer of skin of other sites with unspecified severity; N28.1 Cyst of kidney, acquired; N39.0 Urinary tract infection, site not specified; M10.9 Gout, unspecified; R26.9 Unspecified abnormalities of gait and mobility; R29.6 Repeated falls; Z79.899 Other long term (current) drug therapy; Z79.02 Long term (current) use of antithrombotics/antiplatelets; Z86.010 Personal history of colon polyps; R79.89 Other specified abnormal findings of blood chemistry; N40.1 Benign prostatic hyperplasia with lower urinary tract symptoms; R33.8 Other retention of urine; Z79.4 Long term (current) use of insulin; Z79.51 Long term (current) use of inhaled steroids; Z79.890 Hormone replacement therapy; Z86.19 Personal history of other infectious and parasitic diseases; Z86.711 Personal history of pulmonary embolism; Z86.718 Personal history of other venous thrombosis and embolism; Z87.440 Personal history of urinary (tract) infections; Z80.52 Family history of malignant neoplasm of bladder; Z80.1 Family history of malignant neoplasm of trachea, bronchus and lung; Z88.6 Allergy status to analgesic agent; Z88.8 Allergy status to other drugs, medicaments and biological substances
CPT/HCPCS: 36415; 36600; 76770; 80048; 80053; 81001; 82805; 83605; 84484; 85025; 85610; 85730; 87040; 87086; 87635; 93005; 93306; 94640; 94760; 99285

== ENCOUNTER 2021-01-14 21:16 | Inpatient (IN) | payer OTHER, MEDICARE ==
[2021-01-14] MEDS ORDERED: MORPHINE SULFATE 4 MG/ML SYRINGE IV STA (21:45)
[2021-01-14] MEDS ORDERED: SODIUM CHLORIDE 0.9% 1,000 ML IV STA (21:45)
--- NOTE | 2021-01-14 21:47 | ED ---
Male Urogenital HPI - General Chief complaint: Urogenital Stated complaint: Urogenital Time Seen by Provider: 01/14/21 21:18 Source: EMS, RN notes reviewed, old records reviewed Mode of arrival: EMS Limitations: no limitations - History of Present Illness Initial comments: This is a 70-year-old male to the emergency room today. Patient has known indwelling Altman catheter. Having copious amount of blood and clots with multiple exchanges of the catheter today and no success or relief of pain in her lower abdomen. Patient denies any other complaints aside from lower abdominal pain blood in his urine and bladder pass his urine. MD Complaint: testicle pain, dysuria, other (Hematuria and abdominal pain) -: hour(s) Location: penis, abdomen Radiation: none Severity: severe Severity scale (1-10): 10 Quality: sharp Consistency: constant Improves with: none Worsens with: none Reports: urinary retention, blood in urine, nausea/vomiting - Related Data Home Medications Medication Instructions Recorded Confirmed Ergocalciferol [Vitamin D2 100,000 unit PO MO 12/02/14 07/03/20 (DRISDOL)] Finasteride [Proscar] 5 mg PO DAILY 12/02/14 07/03/20 Levothyroxine Sodium [Synthroid] 50 mcg PO DAILY 12/02/14 07/03/20 Pravastatin Sodium [Pravachol] 80 mg PO HS 12/02/14 07/03/20 Sertraline [Zoloft] 200 mg PO DAILY 12/02/14 07/03/20 Tamsulosin [Flomax] 0.8 mg PO HS 12/02/14 07/03/20 allopurinoL [Zyloprim] 100 mg PO BID 12/02/14 07/03/20 gemfibroziL [Lopid] 600 mg PO BID 12/21/16 07/03/20 metFORMIN HCL [Glucophage] 1,000 mg PO BID 03/06/18 07/03/20 Albuterol Sulfate [Proair Hfa] 2 puff INHALATION RT-Q4H PRN 08/20/18 07/03/20 Diclofenac Sodium Gel [Voltaren 4 gram TOPICAL BID PRN 08/20/18 07/03/20 Gel] Pantoprazole Sodium [Protonix] 40 mg PO DAILY 10/21/18 07/03/20 lisinopriL [Zestril] 10 mg PO DAILY 04/24/19 07/03/20 Calcium Carbonate [Tums] 500 mg PO BID 07/03/20 07/03/20 Carboxymethylcellulose Sodium 1 drop BOTH EYES QID 07/03/20 07/03/20 [Refresh Tears] Dextrose Chew [Glucose Chew Tab] 4 gm PO Q10M PRN 07/03/20 07/03/20 Fluticasone/Vilanterol [Breo 1 puff INHALATION RT-DAILY 07/03/20 07/03/20 Ellipta 100-25 Mcg Inhaler] Furosemide [Lasix] 20 mg PO DAILY 07/03/20 07/03/20 Hydrocortisone Cream 1 applic TOPICAL Q6H PRN 07/03/20 07/03/20 [Hydrocortisone 2.5% Cream] Magnesium Hydroxide [Milk of 2,400 mg PO Q48H PRN 07/03/20 07/03/20 Magnesia] Na Phos,M-B/Na Phos,Di-Ba [Fleet 133 ml RECTAL Q98H PRN 07/03/20 07/03/20 Adult] Polyethylene Glycol 3350 [Miralax] 17 gm PO DAILY 07/03/20 07/03/20 Sennosides/Docusate Sodium [Senna 1 tab PO DAILY 07/03/20 07/03/20 Plus 8.6-50 mg Tablet] Simethicone [Gas-X] 125 mg PO BID 07/03/20 07/03/20 bisacodyL [Dulcolax] 10 mg RECTAL Q72H PRN 07/03/20 07/03/20 buPROPion HCL [Wellbutrin XL] 150 mg PO DAILY 07/03/20 07/03/20 carBAMazepine [TEGretol] 200 mg PO TID 07/03/20 07/03/20 carvediloL [Coreg*] 12.5 mg PO BID-W/MEALS 07/03/20 07/03/20 Previous Rx's Medication Instructions Recorded Clopidogrel Bisulfate [Plavix] 75 mg PO DAILY #20 tab 10/01/15 Acetaminophen Tab [Tylenol] 650 mg PO Q6HR PRN tab 04/28/19 Ipratropium-Albuterol Nebulize 3 ml INHALATION RT-QID #1 ampul.neb 04/28/19 [Duoneb 0.5 mg-3 mg/3 ml Soln] Ziprasidone [Geodon] 20 mg PO TID #10 cap 04/28/19 Baclofen 10 mg PO DAILY PRN #2 tab 07/05/20 Baclofen [Lioresal] 10 mg PO BID@0800,1300 #4 tab 07/05/20 Baclofen [Lioresal] 20 mg PO HS #4 tab 07/05/20 Ciprofloxacin HCl [Cipro] 500 mg PO Q12HR 5 Days #10 tab 07/05/20 INSULIN ASPART (NovoLOG) [NovoLOG 0 unit SQ ACHS vial 07/05/20 (formulary)] INSULIN ASPART (NovoLOG) [NovoLOG 15 unit SQ AC-TID vial 07/05/20 (formulary)] Insulin Glargine,Hum.rec.anlog 100 unit SQ HS #0 07/05/20 [Basaglar Kwikpen U-100] Pregabalin [Lyrica] 100 mg PO TID #9 cap 07/05/20 clonazePAM [KlonoPIN] 0.5 mg PO TID #6 tab 07/05/20 predniSONE 10 mg PO DIRECTED #12 tab 07/05/20 Allergies Allergy/AdvReac Type Severity Reaction Status Date / Time aspirin Allergy ABDOMINAL Verified 01/14/21 21:26 DISCOMFORT etodolac [From Lodine] Allergy Unknown Verified 01/14/21 21:26 oxybutynin Allergy Unknown Verified 01/14/21 21:26 Review of Systems ROS Statement: Those systems with pertinent positive or pertinent negative responses have been documented in the HPI. ROS Other: All systems not noted in ROS Statement are negative. Past Medical History Past Medical History: COPD, CVA/TIA, Diabetes Mellitus, Deep Vein Thrombosis (DVT), GERD/Reflux, Hypertension, Myocardial Infarction ([place]), Prostate Disorder, Pulmonary Embolus ([place]), Sleep Apnea/CPAP/BIPAP, Thyroid Disorder Additional Past Medical History / Comment(s): Morbid obesity, obstructive sleep apnea uses CPAP-uses O2 at 5 L during night with cpap, uses 3 liters nasal cannula at home continuous, SOB,history of peripheral neuropathy severe associated related to diabetes mellitus, gait dysfunction and frequent falls- uses w/c-able to stand to transfer, chronic back pain, gout, BPH, TIA/CVA-loyda arm and leg weakness, previous history of C. diff colitis back in 2010,hypothyroidism,colon polyps, per speech is garbled/slurred which is the residual from old stroke Last Myocardial Infarction Date:: 2010 History of Any Multi-Drug Resistant Organisms: None Reported Date of last positivie culture/infection: None MDRO Source:: None Past Surgical History: Hernia Repair Additional Past Surgical History / Comment(s): hiatal hernia repair x 2, umbilical hernia repair,2nd digit rt hand amputated Past Anesthesia/Blood Transfusion Reactions: No Reported Reaction Past Psychological History: Bipolar, Depression, PTSD Smoking Status: Never smoker Past Alcohol Use History: None Reported Past Drug Use History: None Reported - Past Family History Father Family Medical History: Cancer Additional Family Medical History / Comment(s): lung Mother Family Medical History: Cancer Additional Family Medical History / Comment(s): bladder General Exam Limitations: no limitations General appearance: alert, in no apparent distress, anxious Head exam: Present: atraumatic, normocephalic, normal inspection Eye exam: Present: normal appearance, PERRL, EOMI. Absent: scleral icterus, conjunctival injection, periorbital swelling ENT exam: Present: normal exam, mucous membranes moist Neck exam: Present: normal inspection. Absent: tenderness, meningismus, lympha denopathy Respiratory exam: Present: normal lung sounds bilaterally. Absent: respiratory distress, wheezes, rales, rhonchi, stridor Cardiovascular Exam: Present: regular rate, normal rhythm, normal heart sounds. Absent: systolic murmur, diastolic murmur, rubs, gallop, clicks GI/Abdominal exam: Present: distended, tenderness, normal bowel sounds. Absent: guarding, rebound, rigid Extremities exam: Present: normal inspection, full ROM, normal capillary refill. Absent: tenderness, pedal edema, joint swelling, calf tenderness Back exam: Present: normal inspection Neurological exam: Present: alert, oriented X3, CN II-XII intact Psychiatric exam: Present: normal affect, normal mood Skin exam: Present: warm, dry, intact, normal color. Absent: rash Course Vital Signs 01/14/21 21:18 Temperature 98.2 F Pulse Rate 79 Respiratory 20 Rate Blood Pressure 164/119 O2 Sat by Pulse 96 Oximetry - Reevaluation(s) Reevaluation #1: 01/14/21 22:34 Medical record is reviewed Reevaluation #2: 01/14/21 22:34 Spoke with nursing staff at his safety and tried multiple attempts at exchanging of the catheter and flushing the catheter without help Reevaluation #3: 01/14/21 22:55 Altman is switched and at this time patient is able to have improved urination Medical Decision Making - Medical Decision Making 70 male to be admitted for recurrent urinary retention complicated by hyperkalemia dehydration weakness and severe abdominal pain, hematuria with likely underlying urinary tract infection - Lab Data Result diagrams: 01/14/21 21:52 01/14/21 21:52 Lab Results 01/14/21 01/14/21 01/14/21 Range/Units 21:52 21:52 21:52 WBC 18.9 H (3.8-10.6) k/uL RBC 4.01 L (4.30-5.90) m/uL Hgb 11.8 L (13.0-17.5) gm/dL Hct 33.9 L (39.0-53.0) % MCV 84.5 (80.0-100.0) fL MCH 29.4 (25.0-35.0) pg MCHC 34.8 (31.0-37.0) g/dL RDW 14.4 (11.5-15.5) % Plt Count 236 (150-450) k/uL MPV 7.4 Neutrophils % 90 % Lymphocytes % 6 % Monocytes % 2 % Eosinophils % 0 % Basophils % 0 % Neutrophils # 17.0 H (1.3-7.7) k/uL Lymphocytes # 1.2 (1.0-4.8) k/uL Monocytes # 0.5 (0-1.0) k/uL Eosinophils # 0.1 (0-0.7) k/uL Basophils # 0.1 (0-0.2) k/uL Hyperchromasia Slight PT 10.3 (9.0-12.0) sec INR 1.0 (<1.2) APTT 24.8 (22.0-30.0) sec Sodium (137-145) mmol/L Potassium (3.5-5.1) mmol/L Chloride (98-107) mmol/L Carbon Dioxide (22-30) mmol/L Anion Gap mmol/L BUN (9-20) mg/dL Creatinine (0.66-1.25) mg/dL Est GFR (CKD-EPI)AfAm (>60 ml/min/1.73 sqM) Est GFR (CKD-EPI)NonAf (>60 ml/min/1.73 sqM) Glucose (74-99) mg/dL Plasma Lactic Acid Anthony (0.7-2.0) mmol/L Calcium (8.4-10.2) mg/dL Phosphorus (2.5-4.5) mg/dL Magnesium (1.6-2.3) mg/dL Total Bilirubin (0.2-1.3) mg/dL AST (17-59) U/L ALT (4-49) U/L Alkaline Phosphatase (38-126) U/L Creatine Kinase (55-170) U/L Troponin I (0.000-0.034) ng/mL Total Protein (6.3-8.2) g/dL Albumin (3.5-5.0) g/dL Urine Color Red Urine Appearance Bloody (Clear) Urine RBC >182 H (0-5) /hpf 01/14/21 01/14/21 01/14/21 Range/Units 21:52 21:52 21:52 WBC (3.8-10.6) k/uL RBC (4.30-5.90) m/uL Hgb (13.0-17.5) gm/dL Hct (39.0-53.0) % MCV (80.0-100.0) fL MCH (25.0-35.0) pg MCHC (31.0-37.0) g/dL RDW (11.5-15.5) % Plt Count (150-450) k/uL MPV Neutrophils % % Lymphocytes % % Monocytes % % Eosinophils % % Basophils % % Neutrophils # (1.3-7.7) k/uL Lymphocytes # (1.0-4.8) k/uL Monocytes # (0-1.0) k/uL Eosinophils # (0-0.7) k/uL Basophils # (0-0.2) k/uL Hyperchromasia PT (9.0-12.0) sec INR (<1.2) APTT (22.0-30.0) sec Sodium 128 L (137-145) mmol/L Potassium 5.8 H (3.5-5.1) mmol/L Chloride 97 L (98-107) mmol/L Carbon Dioxide 20 L (22-30) mmol/L Anion Gap 11 mmol/L BUN 20 (9-20) mg/dL Creatinine 1.05 (0.66-1.25) mg/dL Est GFR (CKD-EPI)AfAm 83 (>60 ml/min/1.73 sqM) Est GFR (CKD-EPI)NonAf 72 (>60 ml/min/1.73 sqM) Glucose 196 H (74-99) mg/dL Plasma Lactic Acid Anthony 2.7 H* (0.7-2.0) mmol/L Calcium 9.6 (8.4-10.2) mg/dL Phosphorus 4.9 H (2.5-4.5) mg/dL Magnesium 2.1 (1.6-2.3) mg/dL Total Bilirubin 0.3 (0.2-1.3) mg/dL AST 33 (17-59) U/L ALT 24 (4-49) U/L Alkaline Phosphatase 148 H (38-126) U/L Creatine Kinase 81 (55-170) U/L Troponin I 0.026 (0.000-0.034) ng/mL Total Protein 7.0 (6.3-8.2) g/dL Albumin 4.0 (3.5-5.0) g/dL Urine Color Urine Appearance (Clear) Urine RBC (0-5) /hpf - EKG Data -: EKG Interpreted by Me (EKG is sinus rhythm 78 MA 188 QRS 118 QTc 467) - Radiology Data Radiology results: report reviewed (Chest x-rays negative for acute disease), image reviewed Critical Care Time Critical Care Time: Yes Total Critical Care Time: 31 Disposition Clinical Impression: Urinary retention, Lactic acidosis, Dehydration, Weakness, UTI (urinary tract infection), Hyperkalemia Disposition: ADMITTED IP TO THIS HOSP Condition: Fair Is patient prescribed a controlled substance at d/c from ED?: No Referrals: [facility],Clinic [Primary Care Provider] - 1-2 days
[2021-01-14 22:11] LABS: Basophils # (A) 0.1 k/uL (0-0.2); Basophils % (A) 0 %; Eosinophils # (A) 0.1 k/uL (0-0.7); Eosinophils % (A) 0 %; HCT 33.9 % (39.0-53.0); HGB 11.8 gm/dL (13.0-17.5); Hyperchromasia Slight; Lymphocytes # (A) 1.2 k/uL (1.0-4.8); Lymphocytes % (A) 6 %; MCH 29.4 pg (25.0-35.0); MCHC 34.8 g/dL (31.0-37.0); MCV 84.5 fL (80.0-100.0); Mean Platelet Volume 7.4; Monocytes # (A) 0.5 k/uL (0-1.0); Monocytes % (A) 2 %; Neutrophils % (A) 90 %; Platelet Count 236 k/uL (150-450); RBC 4.01 m/uL (4.30-5.90); RDW 14.4 % (11.5-15.5); WBC 18.9 k/uL (3.8-10.6)
--- NOTE | 2021-01-14 22:15 | XR ---
EXAMINATION TYPE: XR chest 2V DATE OF EXAM: 01/14/2021 COMPARISON: 05/21/2019 HISTORY: Weakness TECHNIQUE: 2 views FINDINGS: Heart and mediastinum are normal. Lungs are clear. Diaphragm is normal. Bony thorax is inta ct. IMPRESSION: Normal chest. No change.
[2021-01-14 22:18] LABS: RBC,Urine >182 /hpf (0-5)
[2021-01-14 22:28] LABS: Calcium 9.6 mg/dL (8.4-10.2); Magnesium 2.1 mg/dL (1.6-2.3); Phosphorus 4.9 mg/dL (2.5-4.5); Potassium 5.8 mmol/L (3.5-5.1); Total Bilirubin 0.3 mg/dL (0.2-1.3)
[2021-01-14 22:39] LABS: Color,Urine Red
[2021-01-14 22:40] LABS: Appearance,Urine Bloody (Clear)
[2021-01-14 22:47] LABS: Partial Thromboplastin Time 24.8 sec (22.0-30.0); Prothrombin Time 10.3 sec (9.0-12.0)
[2021-01-14] MEDS ORDERED: LORazepam 2 MG/ML INJ IV STA (22:48)
[2021-01-14] MEDS ORDERED: MORPHINE SULFATE 4 MG/ML SYRINGE IV PRN ×2 (22:52→23:03)
[2021-01-14] MEDS ORDERED: LORazepam 2 MG/ML INJ IV PRN ×2 (22:52→23:03)
[2021-01-14] MEDS ORDERED: NALOXONE 0.4 MG/ML 1 ML VIAL IV PRN (22:52)
[2021-01-14] MEDS ORDERED: DEXTROSE 50% SYRINGE 50 ML IVP STA (22:53)
[2021-01-14] MEDS ORDERED: SODIUM BICARB 8.4% 50 ML SYR (1 MEQ/ML) IV STA (22:53)
[2021-01-14] MEDS ORDERED: INSULIN REGULAR 100 UNIT/ML VIAL (IV) IV ONE (22:53)
[2021-01-15] MEDS ORDERED: SODIUM CHLORIDE 0.9% 1,000 ML IV ONE ×3 (00:30→07:16)
[2021-01-15] MEDS: SODIUM CHLORIDE 0.9% 1,000 ML IV SCH ×3 (02:07→21:44)
[2021-01-15] MEDS ORDERED: ONDANSETRON 4 MG/2 ML VIAL IVP STA (02:09)
[2021-01-15 05:20] LABS: Calcium 8.4 mg/dL (8.4-10.2); Phosphorus 4.4 mg/dL (2.5-4.5); Potassium 5.6 mmol/L (3.5-5.1)
[2021-01-15 05:25] LABS: Basophils % (A) 0 %; Eosinophils % (A) 0 %; HCT 28.4 % (39.0-53.0); Lymphocytes # (A) 0.3 k/uL (1.0-4.8); Lymphocytes % (A) 2 %; MCH 29.8 pg (25.0-35.0); MCHC 34.3 g/dL (31.0-37.0); MCV 86.9 fL (80.0-100.0); Mean Platelet Volume 7.5; Monocytes # (A) 0.5 k/uL (0-1.0); Monocytes % (A) 3 %; Neutrophils # (A) 18.9 k/uL (1.3-7.7); Neutrophils % (A) 95 %; Platelet Count 194 k/uL (150-450); RBC 3.27 m/uL (4.30-5.90); RDW 14.7 % (11.5-15.5); WBC 19.8 k/uL (3.8-10.6)
[2021-01-15 05:34] LABS: HGB 9.7 gm/dL (13.0-17.5)
[2021-01-15] MEDS ORDERED: cefTRIAXone IN SWFI 1,000 MG/10 ML SYRINGE IVP STA (07:15)
[2021-01-15] MEDS ORDERED: ONDANSETRON 4 MG/2 ML VIAL IVP PRN (10:06)
[2021-01-15] MEDS ORDERED: ACETAMINOPHEN TAB 325 MG TAB PO PRN (10:37)
[2021-01-15] MEDS ORDERED: MAGNESIUM HYDROXIDE 2,400 MG/10 ML CUP PO PRN (10:37)
[2021-01-15] MEDS ORDERED: BENZOCAINE 20 % GEL 15 GM TUBE MM PRN (10:37)
[2021-01-15] MEDS ORDERED: bisacodyL 10 MG SUPP RECTAL PRN (10:37)
[2021-01-15] MEDS ORDERED: NA PHOS,M-B/NA PHOS,DI-BA 133 ML ENEMA RECTAL PRN (10:37)
[2021-01-15] MEDS ORDERED: DICLOFENAC SODIUM GEL 100 GM TUBE TOPICAL PRN (10:37)
[2021-01-15] MEDS ORDERED: HYDROCORTISONE 1% CREAM 30 GM TUBE TOPICAL PRN (10:37)
[2021-01-15] MEDS ORDERED: ALBUTEROL NEBULIZED 2.5 MG/3 ML INHALATION PRN (10:37)
[2021-01-15] MEDS ORDERED: diphenhydrAMINE 25 MG CAP PO PRN (10:41)
[2021-01-15] MEDS: CALCIUM CARBONATE 500 MG CHEWABLE PO SCH ×2 (11:22→18:57)
[2021-01-15] MEDS: carBAMazepine 200 MG TAB PO SCH ×2 (11:22→21:42)
[2021-01-15] MEDS: HYDROcodone/APAP 7.5-325MG 1 EACH TAB PO PRN ×2 (11:22→21:25)
--- NOTE | 2021-01-15 11:46 | P.HPIM ---
History of Present Illness Patient is a 70-year-old male with indwelling Altman catheter came in with because of copious amounts of blood clots patient does take Plavix. Patient has a chronic Altman catheter patient is presently group home resident. Patient does have history of PTSD advanced. Patient does have benign prostatic hypertrophy and prostatic surgery in the past patient was evaluated by urology. Patient was having a lot of blood clots which resolved and patient just of bloody urine now patient is also company of testicular pain was also complaining of hematuria presently although patient has a Altman catheter urine analysis is not completed and I cannot completely rule out UTI because of which I'm going to be continuing the antibiotic that was started in the ER patient does have leukocytosis without any fever. Patient does have a some tremor which she says is chronic and related to his high anxiety as per the patient today patient does have hyponatremia. Patient has elevated potassium of 5.6. Patient's bicarbonate is 17 secondary to hyperchloremia. REVIEW OF SYSTEMS: CONSTITUTIONAL: No fever, no malaise, no fatigue. HEENT: No recent visual problems or hearing problems. Denied any sore throat. CARDIOVASCULAR: No chest pain, orthopnea, PND, no palpitations, no syncope. PULMONARY: No shortness of breath, no cough, no hemoptysis. GASTROINTESTINAL: No diarrhea, no nausea, no vomiting, no abdominal pain. NEUROLOGICAL: No headaches, no weakness, no numbness. HEMATOLOGICAL: Denies any bleeding or petechiae. GENITOURINARY as mentioned in HPI MUSCULOSKELETAL/RHEUMATOLOGICAL: Denies any joint pain, swelling, or any muscle pain. ENDOCRINE: Denies any polyuria or polydipsia. The rest of the 14-point review of systems is negative. PHYSICAL EXAMINATION: GENERAL: The patient is alert and oriented x3, not in any acute distress. Well developed, well nourished. Chronic tremor HEENT: Pupils are round and equally reacting to light. EOMI. No scleral icterus. No conjunctival pallor. Normocephalic, atraumatic. No pharyngeal erythema. No thyromegaly. CARDIOVASCULAR: S1 and S2 present. No murmurs, rubs, or gallops. PULMONARY: Chest is clear to auscultation, no wheezing or crackles. ABDOMEN: Soft, nontender, nondistended, normoactive bowel sounds. No palpable organomegaly. MUSCULOSKELETAL: No joint swelling or deformity. EXTREMITIES: No cyanosis, clubbing, or pedal edema. NEUROLOGICAL: Gross neurological examination did not reveal any focal deficits. SKIN: No rashes. Assessment and plan 1 hematuria: Possibility of UTI cannot completely rule out hold off on antiplatelet therapy neurology validate the patient for now he can you with antibiotics. Patient has a Altman catheter can be a Altman catheter related to earlier UTI -COPD with mild acute exacerbation patient will be continued on systemic steroids inhalational treatments if patient can use to wheeze will start him on systemic steroids at that time -Acute renal failure: Continue with IV fluids probably prerenal azotemia -Essentially a And hepatitis type 2 diabetes mellitus -Sleep apnea next and-hypothyroidism -Chronic respiratory failure uses around 2-3 L of oxygen at home. -Chronic tremor secondary to anxiety as per the patient -PTSD, anxiety: Continue with his home medications -9 prostatic hypertrophy with chronic Altman catheter DVT prophylaxis: Past Medical History Past Medical History: COPD, CVA/TIA, Diabetes Mellitus, Deep Vein Thrombosis (DVT), GERD/Reflux, Hypertension, Myocardial Infarction ([place]), Prostate Disorder, Pulmonary Embolus ([place]), Sleep Apnea/CPAP/BIPAP, Thyroid Disorder Additional Past Medical History / Comment(s): Morbid obesity, obstructive sleep apnea uses CPAP-uses O2 at 5 L during night with cpap, uses 3 liters nasal cannula at home continuous, SOB,history of peripheral neuropathy severe associated related to diabetes mellitus, gait dysfunction and frequent falls- uses w/c-able to stand to transfer, chronic back pain, gout, BPH, TIA/CVA-loyda arm and leg weakness, previous history of C. diff colitis back in 2010,hypothyroidism,colon polyps, per speech is garbled/slurred which is the residual from old stroke Last Myocardial Infarction Date:: 2010 History of Any Multi-Drug Resistant Organisms: None Reported Date of last positivie culture/infection: None MDRO Source:: None Past Surgical History: Hernia Repair Additional Past Surgical History / Comment(s): hiatal hernia repair x 2, umbilical hernia repair,2nd digit rt hand amputated Past Anesthesia/Blood Transfusion Reactions: No Reported Reaction Past Psychological History: Bipolar, Depression, PTSD Smoking Status: Never smoker Past Alcohol Use History: None Reported Past Drug Use History: None Reported - Past Family History Father Family Medical History: Cancer Additional Family Medical History / Comment(s): lung Mother Family Medical History: Cancer Additional Family Medical History / Comment(s): bladder Medications and Allergies Home Medications Medication Instructions Recorded Confirmed Type Finasteride [Proscar] 5 mg PO DAILY@0700 12/02/14 01/14/21 History Levothyroxine Sodium [Synthroid] 50 mcg PO HS@209912/02/14 01/14/21 History Sertraline [Zoloft] 200 mg PO DAILY@0700 12/02/14 01/14/21 History Tamsulosin [Flomax] 0.8 mg PO HS@209912/02/14 01/14/21 History allopurinoL [Zyloprim] 100 mg PO BID@0700,2100 12/02/14 01/14/21 History metFORMIN HCL [Glucophage] 1,000 mg PO BID@0700,1700 03/06/18 01/14/21 History Albuterol Sulfate [Proair Hfa] 2 puff INHALATION RT-Q4H PRN 08/20/18 01/14/21 History Diclofenac Sodium Gel [Voltaren 4 gram TOPICAL Q12H PRN 08/20/18 01/14/21 History Gel] Pantoprazole Sodium [Protonix] 40 mg PO BID@0500,1600 10/21/18 01/14/21 History Acetaminophen Tab [Tylenol] 650 mg PO Q6HR PRN tab 04/28/19 01/14/21 Rx Calcium Carbonate [Tums] 500 mg PO TID@0700,1200,1700 07/03/20 01/14/21 History Carboxymethylcellulose Sodium 1 drop BOTH EYES QID@07,12,17,21 07/03/20 01/14/21 History [Refresh Tears] Dextrose Chew [Glucose Chew Tab] 4 gm PO Q10M PRN 07/03/20 01/14/21 History Fluticasone/Vilanterol [Breo 1 puff INHALATION RT-DAILY@0700 07/03/20 01/14/21 History Ellipta 100-25 Mcg Inhaler] Hydrocortisone Cream 1 applic TOPICAL Q6H PRN 07/03/20 01/14/21 History [Hydrocortisone 2.5% Cream] Magnesium Hydroxide [Milk of 2,400 mg PO Q48H PRN 07/03/20 01/14/21 History Magnesia] Na Phos,M-B/Na Phos,Di-Ba [Fleet 133 ml RECTAL Q96H PRN 07/03/20 01/14/21 History Adult] Polyethylene Glycol 3350 [Miralax] 17 gm PO DAILY@1200 07/03/20 01/14/21 History Sennosides/Docusate Sodium [Senna 1 tab PO HS@209907/03/20 01/14/21 History Plus 8.6-50 mg Tablet] Simethicone [Gas-X] 125 mg PO BID@0700,1700 07/03/20 01/14/21 History bisacodyL [Dulcolax] 10 mg RECTAL Q72H PRN 07/03/20 01/14/21 History carBAMazepine [TEGretol] 200 mg PO TID@0700,1200,209907/03/20 01/14/21 History ALPRAZolam [Xanax] 0.25 mg PO DAILY@0701/14/21 01/14/21 History ALPRAZolam [Xanax] 0.5 mg PO HS@209901/14/21 01/14/21 History Atorvastatin [Lipitor] 40 mg PO HS@209901/14/21 01/14/21 History Benzocaine [Anbesol] 1 applic DENTAL Q6H PRN 01/14/21 01/14/21 History Carvedilol [Coreg] 6.25 mg PO BID@0700,169901/14/21 01/14/21 History Clopidogrel Bisulfate [Plavix] 75 mg PO DAILY@69901/14/21 01/14/21 History INSULIN LISPRO (humaLOG) [humaLOG] 14 unit SQ HS@169901/14/21 01/14/21 History Insulin Glargine,Hum.rec.anlog 70 unit SQ HS@209901/14/21 01/14/21 History [Semglee Pen] Ipratropium-Albuterol Nebulize 3 ml INHALATION RT-QID@07,12,,01/14/21 01/14/21 History [Duoneb 0.5 mg-3 mg/3 ml Soln] Ziprasidone [Geodon] 20 mg PO TID@0700,1300,209901/14/21 01/14/21 History buPROPion XL [Wellbutrin XL] 300 mg PO DAILY@0700 01/14/21 01/14/21 History diphenhydrAMINE [Benadryl] 25 mg PO Q6H PRN 01/14/21 01/14/21 History lisinopriL 20 mg PO DAILY@0701/14/21 01/14/21 History Allergies Allergy/AdvReac Type Severity Reaction Status Date / Time aspirin Allergy ABDOMINAL Verified 01/14/21 21:26 DISCOMFORT etodolac [From Lodine] Allergy Unknown Verified 01/14/21 21:26 oxybutynin Allergy Unknown Verified 01/14/21 21:26 Physical Exam Vitals: Vital Signs Temp Pulse Pulse Resp BP BP Pulse Ox 01/15/21 10:07 98.2 F 97 16 101/53 95 01/15/21 07:42 98.1 F 94 68/51 01/15/21 06:33 71 18 105/49 96 01/15/21 05:11 78 18 91/49 96 01/15/21 04:00 80 16 99/62 96 01/15/21 03:42 82 18 106/51 96 01/15/21 03:36 87 18 83/40 97 01/15/21 03:23 89 18 70/41 98 01/15/21 03:13 92 18 71/39 96 01/15/21 02:46 88 18 106/74 96 01/15/21 02:00 79 18 92/46 97 01/15/21 01:30 84 18 92/48 95 01/15/21 00:49 87 18 129/87 96 01/15/21 00:30 90 20 86/51 97 01/14/21 21:18 98.2 F 79 20 164/119 96 Intake and Output 01/14/21 01/15/21 01/15/21 22:59 06:59 14:59 Output Total 300 Balance -300 Output: Urine 300 Other: Voiding Method Indwelling Catheter Weight 124.738 kg Results CBC & Chem 7: 01/15/21 04:53 01/15/21 04:31 Labs: Abnormal Lab Results - Last 24 Hours (Table) 01/14/21 01/14/21 01/14/21 Range/Units 21:52 21:52 21:52 WBC 18.9 H (3.8-10.6) k/uL RBC 4.01 L (4.30-5.90) m/uL Hgb 11.8 L (13.0-17.5) gm/dL Hct 33.9 L (39.0-53.0) % Neutrophils # 17.0 H (1.3-7.7) k/uL Lymphocytes # (1.0-4.8) k/uL Sodium 128 L (137-145) mmol/L Potassium 5.8 H (3.5-5.1) mmol/L Chloride 97 L (98-107) mmol/L Carbon Dioxide 20 L (22-30) mmol/L BUN (9-20) mg/dL Creatinine (0.66-1.25) mg/dL Glucose 196 H (74-99) mg/dL Plasma Lactic Acid Anthony (0.7-2.0) mmol/L Phosphorus 4.9 H (2.5-4.5) mg/dL Alkaline Phosphatase 148 H (38-126) U/L Urine RBC >182 H (0-5) /hpf 01/14/21 01/15/21 01/15/21 Range/Units 21:52 01:28 04:31 WBC (3.8-10.6) k/uL RBC (4.30-5.90) m/uL Hgb (13.0-17.5) gm/dL Hct (39.0-53.0) % Neutrophils # (1.3-7.7) k/uL Lymphocytes # (1.0-4.8) k/uL Sodium 129 L (137-145) mmol/L Potassium 5.6 H (3.5-5.1) mmol/L Chloride (98-107) mmol/L Carbon Dioxide 17 L (22-30) mmol/L BUN 22 H (9-20) mg/dL Creatinine 1.46 H (0.66-1.25) mg/dL Glucose 177 H (74-99) mg/dL Plasma Lactic Acid Anthony 2.7 H* 3.7 H* (0.7-2.0) mmol/L Phosphorus (2.5-4.5) mg/dL Alkaline Phosphatase (38-126) U/L Urine RBC (0-5) /hpf 01/15/21 01/15/21 01/15/21 Range/Units 04:31 04:53 08:57 WBC 19.8 H (3.8-10.6) k/uL RBC 3.27 L (4.30-5.90) m/uL Hgb 9.7 L D (13.0-17.5) gm/dL Hct 28.4 L (39.0-53.0) % Neutrophils # 18.9 H (1.3-7.7) k/uL Lymphocytes # 0.3 L (1.0-4.8) k/uL Sodium (137-145) mmol/L Potassium (3.5-5.1) mmol/L Chloride (98-107) mmol/L Carbon Dioxide (22-30) mmol/L BUN (9-20) mg/dL Creatinine (0.66-1.25) mg/dL Glucose (74-99) mg/dL Plasma Lactic Acid Anthony 3.9 H* 2.3 H* (0.7-2.0) mmol/L Phosphorus (2.5-4.5) mg/dL Alkaline Phosphatase (38-126) U/L Urine RBC (0-5) /hpf
[2021-01-15] MEDS: ARTIFICIAL TEARS-HYPROMELLOSE DROPS 15 ML BTL BOTH EYES SCH ×3 (13:06→21:44)
[2021-01-15] MEDS: ZIPRASIDONE 20 MG CAP PO SCH ×2 (13:07→21:43)
[2021-01-15] MEDS: polyethylene glycoL 3350 17 GM POWD.PACK PO SCH (13:07)
[2021-01-15] MEDS: IPRATROPIUM-ALBUTEROL 3 ML NEB INHALATION SCH ×3 (16:42→20:10)
[2021-01-15 18:42] LABS: Glucose,Whole Blood 291 mg/dL (75-99)
[2021-01-15] MEDS: INSULIN ASPART (NovoLOG) 100 UNIT/ML VIAL SQ SCH (18:57)
[2021-01-15] MEDS: PANTOPRAZOLE 40 MG TABLET PO SCH (18:57)
[2021-01-15] MEDS: SIMETHICONE 80 MG CHEWABLE PO SCH (20:01)
[2021-01-15] MEDS: SYMBICORT 80-4.5 MCG INHALER INHALATION SCH (20:10)
[2021-01-15] MEDS: LEVOTHYROXINE 50 MCG TAB PO SCH (21:41)
[2021-01-15] MEDS: ALPRAZolam 0.5 MG TAB PO SCH (21:41)
[2021-01-15] MEDS: SENNOSIDES-DOCUSATE SODIUM 1 EACH TAB PO SCH (21:42)
[2021-01-15] MEDS: TAMSULOSIN 0.4 MG CAP.ER.24H PO SCH (21:42)
[2021-01-15] MEDS: allopurinoL 100 MG TAB PO SCH (21:43)
[2021-01-15] MEDS: ATORVASTATIN 40 MG TAB PO SCH (21:43)
[2021-01-15 21:55] LABS: Glucose,Whole Blood 231 mg/dL (75-99)
[2021-01-16] MEDS: INSULIN DETEMIR (LEVEMIR) 100 UNIT/ML SYR SQ SCH ×2 (00:14→20:34)
[2021-01-16] MEDS: HYDROcodone/APAP 7.5-325MG 1 EACH TAB PO PRN (05:09)
[2021-01-16] MEDS: carBAMazepine 200 MG TAB PO SCH ×3 (06:00→20:34)
[2021-01-16] MEDS: buPROPion XL 300 MG TAB.ER.24H PO SCH (06:01)
[2021-01-16] MEDS: allopurinoL 100 MG TAB PO SCH ×2 (06:01→20:34)
[2021-01-16] MEDS: ALPRAZolam 0.25 MG TAB PO SCH (06:01)
[2021-01-16] MEDS: PANTOPRAZOLE 40 MG TABLET PO SCH ×2 (06:01→17:08)
[2021-01-16] MEDS: SERTRALINE 100 MG TAB PO SCH (06:01)
[2021-01-16] MEDS: FINASTERIDE 5 MG TAB PO SCH (06:01)
[2021-01-16] MEDS: CALCIUM CARBONATE 500 MG CHEWABLE PO SCH ×3 (06:01→17:08)
[2021-01-16] MEDS: SIMETHICONE 80 MG CHEWABLE PO SCH ×2 (06:02→17:08)
[2021-01-16] MEDS: ZIPRASIDONE 20 MG CAP PO SCH ×3 (06:03→20:36)
[2021-01-16 06:11] LABS: Glucose,Whole Blood 220 mg/dL (75-99)
[2021-01-16] MEDS: IPRATROPIUM-ALBUTEROL 3 ML NEB INHALATION SCH ×4 (07:23→20:14)
[2021-01-16] MEDS: SYMBICORT 80-4.5 MCG INHALER INHALATION SCH ×2 (07:23→20:13)
--- NOTE | 2021-01-16 08:16 | P.GSCN ---
History of Present Illness Consult date: 01/15/21 Reason for Consult: Hematuria Requesting physician: Kassie Das History of present illness: The patient is a 70-year-old white male well known to me. He underwent a Urolift procedure for BPH in 2018, but continued to experience voiding dysfunction. He continued to experience voiding difficulty and recurrent UTIs despite taking finasteride and tamsulosin. Urodynamic testing in November 2019 showed normal due to surface function, and he was advised to consider a TURP. He was last seen in July 2020. He was advised at that time that his options were a chronic indwelling catheter, suprapubic cystostomy tube, and TURP. Suprapubic cystostomy tube insertion will require an open procedure, and a TURP would require that he be taken off Plavix perioperatively. Therefore, he has elected to continue with an indwelling Altman catheter. He now presents with gross hematuria. The Altman catheter was changed in the emergency room, and clots irrigated from the bladder. According to the nursing staff, the catheter quit draining 1 hour ago. Review of Systems - Constitutional Denies chills, Denies fever - Gastrointestinal Reports abdominal pain - Genitourinary Reports hematuria, Reports urinary retention Past Medical History Past Medical History: COPD, CVA/TIA, Diabetes Mellitus, Deep Vein Thrombosis (DVT), GERD/Reflux, Hypertension, Myocardial Infarction (GA), Prostate Disorder, Pulmonary Embolus (PE), Sleep Apnea/CPAP/BIPAP, Thyroid Disorder Additional Past Medical History / Comment(s): Morbid obesity, obstructive sleep apnea uses CPAP-uses O2 at 5 L during night with cpap, uses 3 liters nasal cannula at home continuous, SOB,history of peripheral neuropathy severe associated related to diabetes mellitus, gait dysfunction and frequent falls- uses w/c-able to stand to transfer, chronic back pain, gout, BPH, TIA/CVA-loyda arm and leg weakness, previous history of C. diff colitis back in 2010,hypothyroidism,colon polyps, per speech is garbled/slurred which is the residual from old stroke Last Myocardial Infarction Date:: 2010 History of Any Multi-Drug Resistant Organisms: None Reported Year Discovered:: None MDRO Source:: None Past Surgical History: Hernia Repair Additional Past Surgical History / Comment(s): hiatal hernia repair x 2, umbilical hernia repair,2nd digit rt hand amputated Past Anesthesia/Blood Transfusion Reactions: No Reported Reaction Past Psychological History: Bipolar, Depression, PTSD Smoking Status: Never smoker Past Alcohol Use History: None Reported Past Drug Use History: None Reported - Past Family History Father Family Medical History: Cancer Additional Family Medical History / Comment(s): lung Mother Family Medical History: Cancer Additional Family Medical History / Comment(s): bladder Medications and Allergies Home Medications Medication Instructions Recorded Confirmed Type Finasteride [Proscar] 5 mg PO DAILY@0700 12/02/14 01/14/21 History Levothyroxine Sodium [Synthroid] 50 mcg PO HS@209912/02/14 01/14/21 History Sertraline [Zoloft] 200 mg PO DAILY@0700 12/02/14 01/14/21 History Tamsulosin [Flomax] 0.8 mg PO HS@209912/02/14 01/14/21 History allopurinoL [Zyloprim] 100 mg PO BID@0700,2100 12/02/14 01/14/21 History metFORMIN HCL [Glucophage] 1,000 mg PO BID@0700,1700 03/06/18 01/14/21 History Albuterol Sulfate [Proair Hfa] 2 puff INHALATION RT-Q4H PRN 08/20/18 01/14/21 History Diclofenac Sodium Gel [Voltaren 4 gram TOPICAL Q12H PRN 08/20/18 01/14/21 History Gel] Pantoprazole Sodium [Protonix] 40 mg PO BID@0500,1600 10/21/18 01/14/21 History Acetaminophen Tab [Tylenol] 650 mg PO Q6HR PRN tab 04/28/19 01/14/21 Rx Calcium Carbonate [Tums] 500 mg PO TID@0700,1200,1700 07/03/20 01/14/21 History Carboxymethylcellulose Sodium 1 drop BOTH EYES QID@07,12,17,21 07/03/20 01/14/21 History [Refresh Tears] Dextrose Chew [Glucose Chew Tab] 4 gm PO Q10M PRN 07/03/20 01/14/21 History Fluticasone/Vilanterol [Breo 1 puff INHALATION RT-DAILY@0700 07/03/20 01/14/21 History Ellipta 100-25 Mcg Inhaler] Hydrocortisone Cream 1 applic TOPICAL Q6H PRN 07/03/20 01/14/21 History [Hydrocortisone 2.5% Cream] Magnesium Hydroxide [Milk of 2,400 mg PO Q48H PRN 07/03/20 01/14/21 History Magnesia] Na Phos,M-B/Na Phos,Di-Ba [Fleet 133 ml RECTAL Q96H PRN 07/03/20 01/14/21 His tory Adult] Polyethylene Glycol 3350 [Miralax] 17 gm PO DAILY@1200 07/03/20 01/14/21 History Sennosides/Docusate Sodium [Senna 1 tab PO HS@209907/03/20 01/14/21 History Plus 8.6-50 mg Tablet] Simethicone [Gas-X] 125 mg PO BID@0700,169907/03/20 01/14/21 History bisacodyL [Dulcolax] 10 mg RECTAL Q72H PRN 07/03/20 01/14/21 History carBAMazepine [TEGretol] 200 mg PO TID@0700,1200,209907/03/20 01/14/21 History ALPRAZolam [Xanax] 0.25 mg PO DAILY@69901/14/21 01/14/21 History ALPRAZolam [Xanax] 0.5 mg PO HS@209901/14/21 01/14/21 History Atorvastatin [Lipitor] 40 mg PO HS@209901/14/21 01/14/21 History Benzocaine [Anbesol] 1 applic DENTAL Q6H PRN 01/14/21 01/14/21 History Carvedilol [Coreg] 6.25 mg PO BID@0700,169901/14/21 01/14/21 History Clopidogrel Bisulfate [Plavix] 75 mg PO DAILY@69901/14/21 01/14/21 History INSULIN LISPRO (humaLOG) [humaLOG] 14 unit SQ HS@169901/14/21 01/14/21 History Insulin Glargine,Hum.rec.anlog 70 unit SQ HS@209901/14/21 01/14/21 History [Semglee Pen] Ipratropium-Albuterol Nebulize 3 ml INHALATION RT-QID@,12,,01/14/21 01/14/21 History [Duoneb 0.5 mg-3 mg/3 ml Soln] Ziprasidone [Geodon] 20 mg PO TID@0700,1300,2100 01/14/21 01/14/21 History buPROPion XL [Wellbutrin XL] 300 mg PO DAILY@0701/14/21 01/14/21 History diphenhydrAMINE [Benadryl] 25 mg PO Q6H PRN 01/14/21 01/14/21 History lisinopriL 20 mg PO DAILY@0701/14/21 01/14/21 History Allergies Allergy/AdvReac Type Severity Reaction Status Date / Time aspirin Allergy ABDOMINAL Verified 01/14/21 21:26 DISCOMFORT etodolac [From Lodine] Allergy Unknown Verified 01/14/21 21:26 oxybutynin Allergy Unknown Verified 01/14/21 21:26 Surgical - Exam Vital Signs Temp Pulse Resp BP Pulse Ox 98.2 F 79 20 164/119 96 01/14/21 21:18 01/14/21 21:18 01/14/21 21:18 01/14/21 21:18 01/14/21 21:18 - General well developed, well nourished, no distress - Respiratory normal respiratory effort - Abdomen Abdomen: soft, non tender, no guarding, no rigid, no rebound - Genitourinary normal penis with no external lesions, testicles non-tender - Psychiatric oriented to time, oriented to person, oriented to place, speech is normal, memory intact Results - Labs 01/15/21 04:53 01/15/21 04:31 Abnormal Lab Results - Last 24 Hours (Table) 01/14/21 01/14/21 01/14/21 Range/Units 21:52 21:52 21:52 WBC 18.9 H (3.8-10.6) k/uL RBC 4.01 L (4.30-5.90) m/uL Hgb 11.8 L (13.0-17.5) gm/dL Hct 33.9 L (39.0-53.0) % Neutrophils # 17.0 H (1.3-7.7) k/uL Lymphocytes # (1.0-4.8) k/uL Sodium 128 L (137-145) mmol/L Potassium 5.8 H (3.5-5.1) mmol/L Chloride 97 L (98-107) mmol/L Carbon Dioxide 20 L (22-30) mmol/L BUN (9-20) mg/dL Creatinine (0.66-1.25) mg/dL Glucose 196 H (74-99) mg/dL Plasma Lactic Acid Anthony (0.7-2.0) mmol/L Phosphorus 4.9 H (2.5-4.5) mg/dL Alkaline Phosphatase 148 H (38-126) U/L Urine RBC >182 H (0-5) /hpf 01/14/21 01/15/21 01/15/21 Range/Units 21:52 01:28 04:31 WBC (3.8-10.6) k/uL RBC (4.30-5.90) m/uL Hgb (13.0-17.5) gm/dL Hct (39.0-53.0) % Neutrophils # (1.3-7.7) k/uL Lymphocytes # (1.0-4.8) k/uL Sodium 129 L (137-145) mmol/L Potassium 5.6 H (3.5-5.1) mmol/L Chloride (98-107) mmol/L Carbon Dioxide 17 L (22-30) mmol/L BUN 22 H (9-20) mg/dL Creatinine 1.46 H (0.66-1.25) mg/dL Glucose 177 H (74-99) mg/dL Plasma Lactic Acid Anthony 2.7 H* 3.7 H* (0.7-2.0) mmol/L Phosphorus (2.5-4.5) mg/dL Alkaline Phosphatase (38-126) U/L Urine RBC (0-5) /hpf 01/15/21 01/15/21 Range/Units 04:31 04:53 WBC 19.8 H (3.8-10.6) k/uL RBC 3.27 L (4.30-5.90) m/uL Hgb 9.7 L D (13.0-17.5) gm/dL Hct 28.4 L (39.0-53.0) % Neutrophils # 18.9 H (1.3-7.7) k/uL Lymphocytes # 0.3 L (1.0-4.8) k/uL Sodium (137-145) mmol/L Potassium (3.5-5.1) mmol/L Chloride (98-107) mmol/L Carbon Dioxide (22-30) mmol/L BUN (9-20) mg/dL Creatinine (0.66-1.25) mg/dL Glucose (74-99) mg/dL Plasma Lactic Acid Anthony 3.9 H* (0.7-2.0) mmol/L Phosphorus (2.5-4.5) mg/dL Alkaline Phosphatase (38-126) U/L Urine RBC (0-5) /hpf Diabetes panel 01/14/21 01/15/21 Range/Units 21:52 04:31 Sodium 128 L 129 L (137-145) mmol/L Potassium 5.8 H 5.6 H (3.5-5.1) mmol/L Chloride 97 L 101 (98-107) mmol/L Carbon Dioxide 20 L 17 L (22-30) mmol/L BUN 20 22 H (9-20) mg/dL Creatinine 1.05 1.46 H (0.66-1.25) mg/dL Glucose 196 H 177 H (74-99) mg/dL Calcium 9.6 8.4 (8.4-10.2) mg/dL AST 33 (17-59) U/L ALT 24 (4-49) U/L Alkaline Phosphatase 148 H (38-126) U/L Total Protein 7.0 (6.3-8.2) g/dL Albumin 4.0 (3.5-5.0) g/dL Calcium panel 01/14/21 01/15/21 Range/Units 21:52 04:31 Calcium 9.6 8.4 (8.4-10.2) mg/dL Phosphorus 4.9 H 4.4 (2.5-4.5) mg/dL Albumin 4.0 (3.5-5.0) g/dL Pituitary panel 01/14/21 01/15/21 Range/Units 21:52 04:31 Sodium 128 L 129 L (137-145) mmol/L Potassium 5.8 H 5.6 H (3.5-5.1) mmol/L Chloride 97 L 101 (98-107) mmol/L Carbon Dioxide 20 L 17 L (22-30) mmol/L BUN 20 22 H (9-20) mg/dL Creatinine 1.05 1.46 H (0.66-1.25) mg/dL Glucose 196 H 177 H (74-99) mg/dL Calcium 9.6 8.4 (8.4-10.2) mg/dL Adrenal panel 01/14/21 01/15/21 Range/Units 21:52 04:31 Sodium 128 L 129 L (137-145) mmol/L Potassium 5.8 H 5.6 H (3.5-5.1) mmol/L Chloride 97 L 101 (98-107) mmol/L Carbon Dioxide 20 L 17 L (22-30) mmol/L BUN 20 22 H (9-20) mg/dL Creatinine 1.05 1.46 H (0.66-1.25) mg/dL Glucose 196 H 177 H (74-99) mg/dL Calcium 9.6 8.4 (8.4-10.2) mg/dL Total Bilirubin 0.3 (0.2-1.3) mg/dL AST 33 (17-59) U/L ALT 24 (4-49) U/L Alkaline Phosphatase 148 H (38-126) U/L Total Protein 7.0 (6.3-8.2) g/dL Albumin 4.0 (3.5-5.0) g/dL Assessment and Plan (1) Gross hematuria Current Visit: Yes Status: Acute Code(s): R31.0 - GROSS HEMATURIA SNOMED Code(s): 037724284 Plan: The Altman catheter will be irrigated manually. If this is not possible, he may require cystoscopy with evacuation of clot. He is exhibiting signs of infection with possible sepsis, and is thus receiving IV antibiotics. Time with Patient: Greater than 30
[2021-01-16] MEDS: ARTIFICIAL TEARS-HYPROMELLOSE DROPS 15 ML BTL BOTH EYES SCH ×4 (08:52→20:34)
[2021-01-16 09:42] LABS: Calcium 8.8 mg/dL (8.4-10.2); Potassium 4.9 mmol/L (3.5-5.1)
[2021-01-16 09:49] LABS: Basophils % (A) 0 %; Eosinophils % (A) 0 %; HCT 23.6 % (39.0-53.0); HGB 8.3 gm/dL (13.0-17.5); Lymphocytes # (A) 0.5 k/uL (1.0-4.8); Lymphocytes % (A) 6 %; MCH 30.1 pg (25.0-35.0); MCHC 35.1 g/dL (31.0-37.0); MCV 85.8 fL (80.0-100.0); Mean Platelet Volume 7.2; Monocytes # (A) 0.3 k/uL (0-1.0); Monocytes % (A) 4 %; Neutrophils # (A) 7.4 k/uL (1.3-7.7); Neutrophils % (A) 89 %; Platelet Count 185 k/uL (150-450); RBC 2.75 m/uL (4.30-5.90); WBC 8.3 k/uL (3.8-10.6)
[2021-01-16 09:55] VITALS: BMI 41.8
[2021-01-16] MEDS: SODIUM CHLORIDE 0.9% 1,000 ML IV SCH ×2 (11:09→17:35)
--- NOTE | 2021-01-16 11:22 | P.PN ---
Subjective Progress Note Date: 01/16/21 Catheter was clogged overnight, hgb 8.3 from 9.7. Quintanilla was clogged last night. Quintanilla irrigated with return of old blood clots. Urine was clear at end of irrigation. Old blood clots were obtained Objective - Vital Signs Vital signs: Vital Signs Temp 98.5 F 01/16/21 08:00 Pulse 89 01/16/21 08:00 Resp 20 01/16/21 08:00 BP 149/65 01/16/21 08:00 Pulse Ox 96 01/16/21 08:00 Intake & Output 01/15/21 01/16/21 01/16/21 18:59 06:59 18:59 Intake Total 100 Output Total 400 500 Balance -400 -400 Weight 136 kg 136 kg Intake: IV 100 Sodium Chloride 0.9% 1, 100 000 ml @ 100 mls/hr IV . Q10H ALONSO Rx#:[id number] Output: Urine 400 500 Other: Voiding Method Indwelling Catheter Indwelling Catheter # Bowel Movements 1 - Constitutional General appearance: Present: no acute distress - Psychiatric Psychiatric: Present: A&O x's 3 - Labs CBC & Chem 7: 01/16/21 09:02 01/16/21 09:02 Labs: Abnormal Lab Results - Last 24 Hours (Table) 01/15/21 01/15/21 01/15/21 Range/Units 12:00 18:40 21:54 RBC (4.30-5.90) m/uL Hgb (13.0-17.5) gm/dL Hct (39.0-53.0) % Lymphocytes # (1.0-4.8) k/uL Sodium (137-145) mmol/L BUN (9-20) mg/dL Creatinine (0.66-1.25) mg/dL Glucose (74-99) mg/dL POC Glucose (mg/dL) 291 H 231 H (75-99) mg/dL Plasma Lactic Acid Anthony 2.3 H* (0.7-2.0) mmol/L 01/16/21 01/16/21 01/16/21 Range/Units 06:10 09:02 09:02 RBC 2.75 L (4.30-5.90) m/uL Hgb 8.3 L (13.0-17.5) gm/dL Hct 23.6 L (39.0-53.0) % Lymphocytes # 0.5 L (1.0-4.8) k/uL Sodium 132 L (137-145) mmol/L BUN 26 H (9-20) mg/dL Creatinine 1.35 H (0.66-1.25) mg/dL Glucose 195 H (74-99) mg/dL POC Glucose (mg/dL) 220 H (75-99) mg/dL Plasma Lactic Acid Anthony (0.7-2.0) mmol/L Assessment and Plan Assessment: 70 yo admitted with gross hematuria, hx of chronic urinary retention been managed by quintanilla. Has [address], on irrigation, urine clearing this am on irrigation it consisted of mainly old blood clots, -Continue to irrigate q 4 PRN -Repeat CBC in am -RBUS
[2021-01-16] MEDS: polyethylene glycoL 3350 17 GM POWD.PACK PO SCH (11:40)
[2021-01-16 11:50] LABS: Glucose,Whole Blood 173 mg/dL (75-99)
--- NOTE | 2021-01-16 13:10 | US ---
EXAMINATION TYPE: US kidneys/renal and bladder DATE OF EXAM: 01/16/2021 COMPARISON: 07/03/2020 US, CT 03/19/2019 CLINICAL HISTORY: Hematuria. EXAM MEASUREMENTS: Right Kidney: 12.6x7.4x7.3 cm Left Kidney: 12.7x6.5x5.6 cm Right Kidney: Multiple cysts largest measures 7.0x6.7x6.1cm Left Kidney: Multiple cysts largest measures sup 3.3x2.7x2.3cm Bladder: Cath There is no evidence for hydronephrosis at this point in time. No nephrolithiasis is seen. No jarrett s are identified. Cortical medullary differentiation is maintained. The cortical cysts are showing im perceptible wall, are anechoic, show increased through transmission and are stable compared to prior exams. IMPRESSION: Bilateral simple cysts within the kidneys
--- NOTE | 2021-01-16 14:13 | P.PN ---
Subjective Progress Note Date: 01/16/21 Patient is a 70-year-old male with indwelling Altman catheter came in with because of copious amounts of blood clots patient does take Plavix. Patient has a chronic Altman catheter patient is presently penitentiary resident. Patient does have history of PTSD advanced. Patient does have benign prostatic hy pertrophy and prostatic surgery in the past patient was evaluated by urology. Patient was having a lot of blood clots which resolved and patient just of bloody urine now patient is also company of testicular pain was also complaining of hematuria presently although patient has a Altman catheter urine analysis is not completed and I cannot completely rule out UTI because of which I'm going to be continuing the antibiotic that was started in the ER patient does have leukocytosis without any fever. Patient does have a some tremor which she says is chronic and related to his high anxiety as per the patient today patient does have hyponatremia. Patient has elevated potassium of 5.6. Patient's bicarbonate is 17 secondary to hyperchloremia. 01/16/2021 Patient is evaluated resting the bed, indwelling catheter in place. Per RN she did have to irrigated with 200 mL this morning and did receive 1000cc of urine back which had some clots in it. Patient states that he did have some urinary discomfort this morning and had to take a pain pill after irrigation his abdominal pain subsided. Abdomen bladder ultrasound completed today revealed bilateral simple cysts within the kidney. There is no nephrolithiasis or hydronephrosis. Patient was seen by urology today who recommended urinating catheter every 4 hours as needed. Hemoglobin today is 8.3, sodium 132, BUN 26, creatinine 1.35 vital signs are stable. Vital signs 98.1, heart rate 80, blood pressure 137/67, percent on 4 L nasal cannula. Patient states that he does wear oxygen at home 24 7. ROS Constitutional: Denied any fatigue denied any fever. Cardio vascular: denied any chest pain, palpitations Gastrointestinal denied any nausea vomiting Pulmonary: Denied any shortness of breath cough Neurologic denied any new focal deficits : Reports intermittent abdominal pain, suprapubic. All inpatient medications were reviewed and appropriate changes in these medications as dictated in the interval history and assessment and plan. PHYSICAL EXAMINATION: GENERAL: The patient is alert and oriented x3, not in any acute distress. Well developed, well nourished. Chronic tremor HEENT: Pupils are round and equally reacting to light. EOMI. No scleral icterus. No conjunctival pallor. Normocephalic, atraumatic. No pharyngeal erythema. No thyromegaly. CARDIOVASCULAR: S1 and S2 present. No murmurs, rubs, or gallops. PULMONARY: Chest is clear to auscultation, no wheezing or crackles. ABDOMEN: Soft, nontender, nondistended, normoactive bowel sounds. No palpable organomegaly. MUSCULOSKELETAL: No joint swelling or deformity. EXTREMITIES: No cyanosis, clubbing, or pedal edema. NEUROLOGICAL: Gross neurological examination did not reveal any focal deficits. SKIN: No rashes. Assessment and plan Assessment -hematuria: Possibility of UTI cannot completely rule out, antiplatelet has been placed on hold urology evaluation -COPD with mild acute exacerbation patient will be continued on systemic steroids inhalational treatments -Acute renal failure: Continue with IV fluids probably prerenal azotemia Hypertension Diabetes mellitus type 2 with hyperglycemia -Sleep apnea -hypothyroidism -Chronic respiratory failure uses around 2-3 L of oxygen at home. -Chronic tremor secondary to anxiety as per the patient -PTSD, anxiety: Continue with his home medications -benign prostatic hypertrophy with chronic Altman catheter DVT prophylaxis: SCDs, ambulation as tolerated, no medications due to gross hematuria GI prophylaxis: Protonix Full code Plan - continue with bladder irrigation every 4 hours as needed. Continue with a.m. labs to monitor hemoglobin trend. Continue IV Rocephin. Continue to follow with urology. Patient was 2-3 L of oxygen at home, patient is currently on 4 L currently is tolerable to home dose. Continue all other medications. Objective - Vital Signs Vital signs: Vital Signs Temp 98.5 F 01/16/21 08:00 Pulse 89 01/16/21 08:00 Resp 20 01/16/21 08:00 BP 149/65 01/16/21 08:00 Pulse Ox 96 01/16/21 08:00 Intake & Output 01/15/21 01/16/21 01/16/21 18:59 06:59 18:59 Intake Total 100 Output Total 400 500 Balance -400 -400 Weight 136 kg 136 kg Intake: IV 100 Sodium Chloride 0.9% 1, 100 000 ml @ 100 mls/hr IV . Q10H ALONSO Rx#:[id number] Output: Urine 400 500 Other: Voiding Method Indwelling Catheter Indwelling Catheter # Bowel Movements 1 - Labs CBC & Chem 7: 01/16/21 09:02 01/16/21 09:02 Labs: Abnormal Lab Results - Last 24 Hours (Table) 01/15/21 01/15/21 01/15/21 Range/Units 12:00 18:40 21:54 RBC (4.30-5.90) m/uL Hgb (13.0-17.5) gm/dL Hct (39.0-53.0) % Lymphocytes # (1.0-4.8) k/uL Sodium (137-145) mmol/L BUN (9-20) mg/dL Creatinine (0.66-1.25) mg/dL Glucose (74-99) mg/dL POC Glucose (mg/dL) 291 H 231 H (75-99) mg/dL Plasma Lactic Acid Anthony 2.3 H* (0.7-2.0) mmol/L 01/16/21 01/16/21 01/16/21 Range/Units 06:10 09:02 09:02 RBC 2.75 L (4.30-5.90) m/uL Hgb 8.3 L (13.0-17.5) gm/dL Hct 23.6 L (39.0-53.0) % Lymphocytes # 0.5 L (1.0-4.8) k/uL Sodium 132 L (137-145) mmol/L BUN 26 H (9-20) mg/dL Creatinine 1.35 H (0.66-1.25) mg/dL Glucose 195 H (74-99) mg/dL POC Glucose (mg/dL) 220 H (75-99) mg/dL Plasma Lactic Acid Anthony (0.7-2.0) mmol/L Assessment and Plan Time with Patient: Greater than 30
[2021-01-16 16:45] LABS: Glucose,Whole Blood 250 mg/dL (75-99)
[2021-01-16] MEDS: INSULIN ASPART (NovoLOG) 100 UNIT/ML VIAL SQ SCH (17:08)
[2021-01-16 20:09] LABS: Glucose,Whole Blood 191 mg/dL (75-99)
[2021-01-16] MEDS: ALPRAZolam 0.5 MG TAB PO SCH (20:33)
[2021-01-16] MEDS: SENNOSIDES-DOCUSATE SODIUM 1 EACH TAB PO SCH (20:33)
[2021-01-16] MEDS: ATORVASTATIN 40 MG TAB PO SCH (20:34)
[2021-01-16] MEDS: TAMSULOSIN 0.4 MG CAP.ER.24H PO SCH (20:34)
[2021-01-16] MEDS: LEVOTHYROXINE 50 MCG TAB PO SCH (20:34)
[2021-01-17] MEDS: PANTOPRAZOLE 40 MG TABLET PO SCH ×2 (06:04→17:05)
[2021-01-17] MEDS: CALCIUM CARBONATE 500 MG CHEWABLE PO SCH ×3 (06:04→17:05)
[2021-01-17] MEDS: ALPRAZolam 0.25 MG TAB PO SCH (06:04)
[2021-01-17] MEDS: FINASTERIDE 5 MG TAB PO SCH (06:04)
[2021-01-17] MEDS: SERTRALINE 100 MG TAB PO SCH ×2 (06:04→06:05)
[2021-01-17] MEDS: allopurinoL 100 MG TAB PO SCH ×2 (06:04→21:06)
[2021-01-17] MEDS: ARTIFICIAL TEARS-HYPROMELLOSE DROPS 15 ML BTL BOTH EYES SCH ×4 (06:05→21:06)
[2021-01-17] MEDS: carBAMazepine 200 MG TAB PO SCH ×3 (06:06→21:06)
[2021-01-17 06:07] LABS: Glucose,Whole Blood 133 mg/dL (75-99)
[2021-01-17] MEDS: SIMETHICONE 80 MG CHEWABLE PO SCH ×2 (06:11→17:05)
[2021-01-17] MEDS: buPROPion XL 300 MG TAB.ER.24H PO SCH (06:11)
[2021-01-17] MEDS: ZIPRASIDONE 20 MG CAP PO SCH ×3 (06:12→21:06)
[2021-01-17] MEDS: IPRATROPIUM-ALBUTEROL 3 ML NEB INHALATION SCH ×4 (07:43→19:38)
[2021-01-17] MEDS: SYMBICORT 80-4.5 MCG INHALER INHALATION SCH ×2 (07:43→19:38)
[2021-01-17 07:52] LABS: Basophils % (A) 0 %; Eosinophils # (A) 0.1 k/uL (0-0.7); Eosinophils % (A) 1 %; HGB 7.4 gm/dL (13.0-17.5); Lymphocytes # (A) 0.6 k/uL (1.0-4.8); Lymphocytes % (A) 11 %; MCH 29.8 pg (25.0-35.0); MCHC 33.8 g/dL (31.0-37.0); MCV 88.2 fL (80.0-100.0); Mean Platelet Volume 7.6; Monocytes # (A) 0.3 k/uL (0-1.0); Monocytes % (A) 5 %; Neutrophils # (A) 4.6 k/uL (1.3-7.7); Neutrophils % (A) 81 %; Platelet Count 157 k/uL (150-450); RBC 2.49 m/uL (4.30-5.90); RDW 14.6 % (11.5-15.5); WBC 5.7 k/uL (3.8-10.6)
[2021-01-17 08:13] LABS: Potassium 4.5 mmol/L (3.5-5.1)
[2021-01-17] MEDS: SODIUM CHLORIDE 0.9% 1,000 ML IV SCH ×2 (08:30→17:01)
--- NOTE | 2021-01-17 09:29 | P.PN ---
Subjective Progress Note Date: 01/17/21 No acute overnight event, urine is clear yellow this am. Denies any abdominal pain or dysuria. Objective - Vital Signs Vital signs: Vital Signs Temp 99.0 F 01/17/21 08:00 Pulse 71 01/17/21 08:00 Resp 16 01/17/21 08:00 BP 120/62 01/17/21 08:00 Pulse Ox 96 01/17/21 08:00 Intake & Output 01/16/21 01/17/21 01/17/21 18:59 06:59 18:59 Intake Total 2400 240 Output Total 3850 350 Balance -1450 -350 240 Weight 136 kg 133.5 kg Intake: Oral 2400 240 Output: Urine 3850 350 Other: Voiding Method Indwelling Catheter Indwelling Catheter Indwelling Catheter # Bowel Movements 2 - Constitutional General appearance: Present: no acute distress - Gastrointestinal General gastrointestinal: Present: soft. Absent: distended, tenderness - Genitourinary Genitourinary Comment(s): urine is clear yellow - Psychiatric Psychiatric: Present: A&O x's 3 - Labs CBC & Chem 7: 01/17/21 07:12 01/17/21 07:12 Labs: Abnormal Lab Results - Last 24 Hours (Table) 01/16/21 01/16/21 01/16/21 Range/Units 09:02 09:02 11:47 RBC 2.75 L (4.30-5.90) m/uL Hgb 8.3 L (13.0-17.5) gm/dL Hct 23.6 L (39.0-53.0) % Lymphocytes # 0.5 L (1.0-4.8) k/uL Sodium 132 L (137-145) mmol/L BUN 26 H (9-20) mg/dL Creatinine 1.35 H (0.66-1.25) mg/dL Glucose 195 H (74-99) mg/dL POC Glucose (mg/dL) 173 H (75-99) mg/dL 01/16/21 01/16/21 01/17/21 Range/Units 16:44 20:07 06:06 RBC (4.30-5.90) m/uL Hgb (13.0-17.5) gm/dL Hct (39.0-53.0) % Lymphocytes # (1.0-4.8) k/uL Sodium (137-145) mmol/L BUN (9-20) mg/dL Creatinine (0.66-1.25) mg/dL Glucose (74-99) mg/dL POC Glucose (mg/dL) 250 H 191 H 133 H (75-99) mg/dL 01/17/21 01/17/21 Range/Units 07:12 07:12 RBC 2.49 L (4.30-5.90) m/uL Hgb 7.4 L (13.0-17.5) gm/dL Hct 22.0 L (39.0-53.0) % Lymphocytes # 0.6 L (1.0-4.8) k/uL Sodium 132 L (137-145) mmol/L BUN (9-20) mg/dL Creatinine (0.66-1.25) mg/dL Glucose 127 H (74-99) mg/dL POC Glucose (mg/dL) (75-99) mg/dL Assessment and Plan Assessment: 70 yo admitted with gross hematuria, hx of chronic urinary retention been managed by quintanilla. Has [address], urine is clear this am -Ok to restart plavix -will reassess tomorrow if urine remains clear this can be discharged home tomorrow .
[2021-01-17 11:38] LABS: Glucose,Whole Blood 285 mg/dL (75-99)
[2021-01-17] MEDS: polyethylene glycoL 3350 17 GM POWD.PACK PO SCH (11:39)
[2021-01-17] MEDS: CLOPIDOGREL 75 MG TAB PO SCH (13:26)
--- NOTE | 2021-01-17 14:48 | CDI ---
Documentation Clarification Form Date: 01/17/2021 02:34:52 PM From: Genesis Gibson CCS, CCDS Admit Date: 01/14/2021 10:52:00 PM Patient Name: Jarrell Díaz Visit Number: [id number] Discharge Date: ATTENTION: The Clinical Documentation Specialists (CDI) and [facility] Coding Staff appreciate your assistance in clarifying documentation. Please respond to the clarification below the line at the bottom and electronically sign. The CDI & [facility] Coding staff will review the response and follow-up if needed. Please note: Queries are made part of the Legal Health Record. If you have any questions, please contact the author of this message via ITS. Dr. Simran Hood: Per the 01/15 History & Physical, the following is documented: Patient has a chronic Altman Catheter, from a correction. Complaining of hematuria, I cannot completely rule out UTI, continue antibiotics started in the ER. Additional clarification regarding the etiology of the UTI is requested. History/Risk Factors per the 01/15 H/P: Chronic Altman Catheter, Chronic tremor, Anxiety, BPH status post Prostate surgery, PTSD, DM II, Sleep apnea, Hypothyroidism, Chronic Respiratory Failure on 2-3L O2. Clinical Indicators: Presented to the ED on 01/14 via EMS with copious amount of blood and clots after multiple exchanges of his Altman catheter today, lower abdominal pain, Hematuria, Testicle pain & Dysuria, Urinary retention, Nausea & vomiting. ED Clinical Impression: Urinary Retention, Lactic Acidosis, Dehydration, Weakness, UTI, Hyperkalemia. 01/14 VS: T 98.2, P 79, R 20, BP 164/119, PO 96 2Lnc, BMI: 41.0 01/14 LAB: WBC 18.9, Hgb 11.8, Neut 17.0, Na 128, K 5.8, Cl 97, CO2 20, Glucose 196, Lactic Acid 2.7, 3.7, 3.9, 2.3; Phos 4.9, Alk Phos 148 01/14 UA: Red, bloody, RBC >182 Urine cultures: none 01/15 Urology Consult: Gross hematuria. Irrigate Altman catheter, possible Cystoscopy with evacuation of clot, exhibiting signs of infection with possible sepsis on IV antibiotics. Treatment 01/14: IV Morphine 4 mg x1, IV Na Cl 1,000 mls @ 130 mls/hr q7H, IV Ativan, IV Rocephin 100 mls/hr x1, IV Dextrose/Water 50 ml x1, IV Insulin 10 units x1, IV Na Bicarb 50 ml x1, IV Na Cl 1,000 mls @ 100 mls/hr q10H 01/15: IV Na Cl 1,000 mls @ 999 mls/hr q1H x3, IV Rocephin 1,000 mg x1. Altman irrigated. Please clarify the etiology of the UTI, if known: [ ] UTI related to Altman catheter [ ] UTI not related to Altman catheter [ ] Other condition, please specify [x ] Unable to determine (Template Last Revised: June 2020) MTDD
--- NOTE | 2021-01-17 14:53 | CDI ---
Documentation Clarification Form Date: 01/17/2021 02:49:00 PM From: Genesis Gibson CCS, CCDS Admit Date: 01/14/2021 10:52:00 PM Patient Name: Jarrell Díaz Visit Number: [id number] Discharge Date: ATTENTION: The Clinical Documentation Specialists (CDI) and [facility] Coding Staff appreciate your assistance in clarifying documentation. Please respond to the clarification below the line at the bottom and electronically sign. The CDI & [facility] Coding staff will review the response and follow-up if needed. Please note: Queries are made part of the Legal Health Record. If you have any questions, please contact the author of this message via ITS. Dr. Simran Hood: Per the 01/15 History & Physical, the following is documented: Patient has a chronic Altman Catheter, from a jail. Complaining of hematuria, I cannot completely rule out UTI, continue antibiotics started in the ER. Additional clarification regarding the etiology of the UTI is requested. History/Risk Factors per the 01/15 H/P: Chronic Altman Catheter, Chronic tremor, Anxiety, BPH status post Prostate surgery, PTSD, DM II, Sleep apnea, Hypothyroidism, Chronic Respiratory Failure on 2-3L O2. Clinical Indicators: Presented to the ED on 01/14 via EMS with copious amount of blood and clots after multiple exchanges of his Altman catheter today, lower abdominal pain, Hematuria, Testicle pain & Dysuria, Urinary retention, Nausea & vomiting. ED Clinical Impression: Urinary Retention, Lactic Acidosis, Dehydration, Weakness, UTI, Hyperkalemia. 01/14 VS: T 98.2, P 79, R 20, BP 164/119, PO 96 2Lnc, BMI: 41.0 01/14 LAB: WBC 18.9, Hgb 11.8, Neut 17.0, Na 128, K 5.8, Cl 97, CO2 20, Glucose 196, Lactic Acid 2.7, 3.7, 3.9, 2.3; Phos 4.9, Alk Phos 148 01/14 UA: Red, bloody, RBC >182 Urine cultures: none 01/15 H/P: Hematuria, possibility of UTI. Patient has a Altman catheter. COPD with mild acute exacerbation. Acute Renal Failure. 01/15 Urology Consult: Gross hematuria. Irrigate Altman catheter, possible Cystoscopy with evacuation of clot, exhibiting signs of infection with possible Sepsis on IV antibiotics. Treatment 01/14: IV Morphine 4 mg x1, IV Na Cl 1,000 mls @ 130 mls/hr q7H, IV Ativan, IV Rocephin 100 mls/hr x1, IV Dextrose/Water 50 ml x1, IV Insulin 10 units x1, IV Na Bicarb 50 ml x1, IV Na Cl 1,000 mls @ 100 mls/hr q10H 01/15: IV Na Cl 1,000 mls @ 999 mls/hr q1H x3, IV Rocephin 1,000 mg x1. Altman irrigated. In your professional opinion, please clarify if these findings signify one of the following conditions: [ ] Sepsis POA [ ] Sepsis, Not POA [ ] Sepsis ruled out [ ] Severe Sepsis with organ failure [ ] Other, please specify [ x ] Unable to determine (Template Last Reviewed: May 2020) XAVID
--- NOTE | 2021-01-17 15:46 | P.PN ---
Subjective Progress Note Date: 01/17/21 Patient is a 70-year-old male with indwelling Altman catheter came in with because of copious amounts of blood clots patient does take Plavix. Patient has a chronic Altman catheter patient is presently [facility] resident. Patient does have history of PTSD advanced. Patient does have benign prostatic hy pertrophy and prostatic surgery in the past patient was evaluated by urology. Patient was having a lot of blood clots which resolved and patient just of bloody urine now patient is also company of testicular pain was also complaining of hematuria presently although patient has a Altman catheter urine analysis is not completed and I cannot completely rule out UTI because of which I'm going to be continuing the antibiotic that was started in the ER patient does have leukocytosis without any fever. Patient does have a some tremor which she says is chronic and related to his high anxiety as per the patient today patient does have hyponatremia. Patient has elevated potassium of 5.6. Patient's bicarbonate is 17 secondary to hyperchloremia. 01/16/2021 Patient is evaluated resting the bed, indwelling catheter in place. Per RN she did have to irrigated with 200 mL this morning and did receive 1000cc of urine back which had some clots in it. Patient states that he did have some urinary discomfort this morning and had to take a pain pill after irrigation his abdominal pain subsided. Abdomen bladder ultrasound completed today revealed bilateral simple cysts within the kidney. There is no nephrolithiasis or hydronephrosis. Patient was seen by urology today who recommended urinating catheter every 4 hours as needed. Hemoglobin today is 8.3, sodium 132, BUN 26, creatinine 1.35 vital signs are stable. Vital signs 98.1, heart rate 80, blood pressure 137/67, percent on 4 L nasal cannula. Patient states that he does wear oxygen at home 24 7. ROS Constitutional: Denied any fatigue denied any fever. Cardio vascular: denied any chest pain, palpitations Gastrointestinal denied any nausea vomiting Pulmonary: Denied any shortness of breath cough Neurologic denied any new focal deficits : Reports intermittent abdominal pain, suprapubic. All inpatient medications were reviewed and appropriate changes in these medications as dictated in the interval history and assessment and plan. PHYSICAL EXAMINATION: GENERAL: The patient is alert and oriented x3, not in any acute distress. Well developed, well nourished. Chronic tremor HEENT: Pupils are round and equally reacting to light. EOMI. No scleral icterus. No conjunctival pallor. Normocephalic, atraumatic. No pharyngeal erythema. No thyromegaly. CARDIOVASCULAR: S1 and S2 present. No murmurs, rubs, or gallops. PULMONARY: Chest is clear to auscultation, no wheezing or crackles. ABDOMEN: Soft, nontender, nondistended, normoactive bowel sounds. No palpable organomegaly. MUSCULOSKELETAL: No joint swelling or deformity. EXTREMITIES: No cyanosis, clubbing, or pedal edema. NEUROLOGICAL: Gross neurological examination did not reveal any focal deficits. SKIN: No rashes. Assessment and plan Assessment -hematuria: -Acute on Chronic UTI with sepsis, present on admission, suspected due to leukocytosis, lactic acidosis, urine showed RBC greater than 182 not a complete urinalysis -Hematuria most likely due to UTI, present on admission, Plavix initially held, as needed bladder irrigations, Altman catheter changed, leukocytosis has resolved, lactic acid is normalized -COPD with mild acute exacerbation patient will be continued on systemic steroids inhalational treatments -Acute renal failure: Continue with IV fluids probably prerenal azotemia, resolved, also component of urinary retention due to gross hematuria with clots Hypertension Diabetes mellitus type 2 with hyperglycemia -Sleep apnea -hypothyroidism -Chronic respiratory failure uses around 2-3 L of oxygen at home. -Chronic tremor secondary to anxiety as per the patient -PTSD, anxiety: Continue with his home medications -benign prostatic hypertrophy with chronic Altman catheter maintained on Flomax and finasteride DVT prophylaxis: SCDs, ambulation as tolerated, no medications due to gross hematuria GI prophylaxis: Protonix Full code Plan -patient responded well to bladder irrigation, Plavix has been resumed today. We'll repeat a hemoglobin in the morning. Urine presenting as clear and yellow at this time with minimal evidence of clots. Continue IV Rocephin. Continue to follow with urology. Patient was 2-3 L of oxygen at home, patient is currently on 4 L currently is tolerable to home dose. Continue all other medications. Plan is for patient to return to [facility] alejandro Objective - Vital Signs Vital signs: Vital Signs Temp 97.5 F L 01/17/21 11:54 Pulse 88 01/17/21 11:54 Resp 17 01/17/21 11:54 BP 132/68 01/17/21 11:54 Pulse Ox 97 01/17/21 11:54 Intake & Output 01/16/21 01/17/21 01/17/21 18:59 06:59 18:59 Intake Total 2400 480 Output Total 3850 350 1800 Balance -1450 -350 -1320 Weight 136 kg 133.5 kg Intake: Oral 2400 480 Output: Urine 3850 350 1800 Other: Voiding Method Indwelling Catheter Indwelling Catheter Indwelling Catheter # Bowel Movements 2 - Labs CBC & Chem 7: 01/17/21 07:12 01/17/21 07:12 Labs: Abnormal Lab Results - Last 24 Hours (Table) 01/16/21 01/16/21 01/17/21 Range/Units 16:44 20:07 06:06 RBC (4.30-5.90) m/uL Hgb (13.0-17.5) gm/dL Hct (39.0-53.0) % Lymphocytes # (1.0-4.8) k/uL Sodium (137-145) mmol/L Glucose (74-99) mg/dL POC Glucose (mg/dL) 250 H 191 H 133 H (75-99) mg/dL 01/17/21 01/17/21 01/17/21 Range/Units 07:12 07:12 11:36 RBC 2.49 L (4.30-5.90) m/uL Hgb 7.4 L (13.0-17.5) gm/dL Hct 22.0 L (39.0-53.0) % Lymphocytes # 0.6 L (1.0-4.8) k/uL Sodium 132 L (137-145) mmol/L Glucose 127 H (74-99) mg/dL POC Glucose (mg/dL) 285 H (75-99) mg/dL Assessment and Plan Time with Patient: Greater than 30
[2021-01-17 16:28] LABS: Glucose,Whole Blood 327 mg/dL (75-99)
[2021-01-17] MEDS: INSULIN ASPART (NovoLOG) 100 UNIT/ML VIAL SQ SCH (17:05)
[2021-01-17 20:00] LABS: Glucose,Whole Blood 305 mg/dL (75-99)
[2021-01-17] MEDS: INSULIN DETEMIR (LEVEMIR) 100 UNIT/ML SYR SQ SCH (21:05)
[2021-01-17] MEDS: ATORVASTATIN 40 MG TAB PO SCH (21:06)
[2021-01-17] MEDS: SENNOSIDES-DOCUSATE SODIUM 1 EACH TAB PO SCH (21:06)
[2021-01-17] MEDS: LEVOTHYROXINE 50 MCG TAB PO SCH (21:06)
[2021-01-17] MEDS: ALPRAZolam 0.5 MG TAB PO SCH (21:06)
[2021-01-17] MEDS: TAMSULOSIN 0.4 MG CAP.ER.24H PO SCH (21:06)
[2021-01-18] MEDS: SODIUM CHLORIDE 0.9% 1,000 ML IV SCH (00:47)
[2021-01-18 06:07] LABS: Glucose,Whole Blood 212 mg/dL (75-99)
[2021-01-18] MEDS: FINASTERIDE 5 MG TAB PO SCH (06:36)
[2021-01-18] MEDS: PANTOPRAZOLE 40 MG TABLET PO SCH (06:37)
[2021-01-18] MEDS: ALPRAZolam 0.25 MG TAB PO SCH (06:37)
[2021-01-18] MEDS: ARTIFICIAL TEARS-HYPROMELLOSE DROPS 15 ML BTL BOTH EYES SCH ×2 (06:37→11:04)
[2021-01-18] MEDS: carBAMazepine 200 MG TAB PO SCH ×2 (06:37→11:04)
[2021-01-18] MEDS: allopurinoL 100 MG TAB PO SCH (06:37)
[2021-01-18] MEDS: CALCIUM CARBONATE 500 MG CHEWABLE PO SCH ×2 (06:37→11:04)
[2021-01-18] MEDS: CLOPIDOGREL 75 MG TAB PO SCH (06:37)
[2021-01-18] MEDS: SERTRALINE 100 MG TAB PO SCH (06:37)
[2021-01-18] MEDS: buPROPion XL 300 MG TAB.ER.24H PO SCH (06:38)
[2021-01-18] MEDS: SIMETHICONE 80 MG CHEWABLE PO SCH (06:38)
[2021-01-18] MEDS: ZIPRASIDONE 20 MG CAP PO SCH ×2 (06:39→12:16)
[2021-01-18] MEDS: SYMBICORT 80-4.5 MCG INHALER INHALATION SCH (07:51)
[2021-01-18] MEDS: IPRATROPIUM-ALBUTEROL 3 ML NEB INHALATION SCH ×2 (07:51→10:49)
[2021-01-18 08:04] LABS: Basophils % (A) 0 %; Eosinophils # (A) 0.1 k/uL (0-0.7); Eosinophils % (A) 3 %; HGB 7.7 gm/dL (13.0-17.5); Lymphocytes # (A) 0.7 k/uL (1.0-4.8); Lymphocytes % (A) 16 %; MCH 29.6 pg (25.0-35.0); MCHC 33.6 g/dL (31.0-37.0); MCV 88.2 fL (80.0-100.0); Mean Platelet Volume 7.7; Monocytes # (A) 0.3 k/uL (0-1.0); Monocytes % (A) 6 %; Neutrophils # (A) 3.2 k/uL (1.3-7.7); Neutrophils % (A) 72 %; Platelet Count 164 k/uL (150-450); Poikilocytosis Slight; RBC 2.61 m/uL (4.30-5.90); RDW 14.3 % (11.5-15.5); WBC 4.4 k/uL (3.8-10.6)
[2021-01-18 08:47] LABS: African American GFR (CKD) >90 (>60 ml/min/1.73 sqM); Anion Gap 9 mmol/L; Blood Urea Nitrogen 13 mg/dL (9-20); Calcium 9.2 mg/dL (8.4-10.2); Carbon Dioxide 26 mmol/L (22-30); Chloride 100 mmol/L (98-107); Glucose 192 mg/dL (74-99); Non-African American GFR(CKD) 85 (>60 ml/min/1.73 sqM); Potassium 4.5 mmol/L (3.5-5.1); Sodium 135 mmol/L (137-145)
[2021-01-18] MEDS: HYDROcodone/APAP 7.5-325MG 1 EACH TAB PO PRN (11:04)
[2021-01-18] MEDS: polyethylene glycoL 3350 17 GM POWD.PACK PO SCH (11:04)
[2021-01-18 11:13] VITALS: BP 144/62; PULSE 72; RESP 18; TEMP 97.6
[2021-01-18 11:51] LABS: Glucose,Whole Blood 270 mg/dL (75-99)
--- NOTE | 2021-01-18 13:03 | P.DS ---
Providers Date of admission: 01/14/21 22:52 Attending physician: Kassie Das Consults: 01/14/21 22:52 Consult Physician Routine Consulting Provider: Bear Townsend Consult Reason/Comments: retention Do you want consulting provider notified?: Yes Primary care physician: [facility] Hospital Course: Final Diagnosis -Acute on Chronic UTI with sepsis, present on admission, suspected -Hematuria most likely due to UTI, present on admission -Leukocytosis, related to infection, normalized -COPD with mild acute exacerbation patient will be continued on systemic steroids inhalational treatments -Acute renal failure: Continue with IV fluids probably prerenal azotemia, resolved, also component of urinary retention due to gross hematuria with clots Hypertension Diabetes mellitus type 2 with hyperglycemia -Sleep apnea -hypothyroidism -Chronic respiratory failure uses around 2-3 L of oxygen at home. -Chronic tremor secondary to anxiety as per the patient -PTSD, anxiety: Continue with his home medications -benign prostatic hypertrophy with chronic Quintanilla catheter maintained on Flomax and finasteride Discharge Disposition Patient hgb stable today at 7.7, urine in quintanilla drainage bag is clear, no visible clots. Pt will complete a course of oral antibiotics. He is clear for discharge to [facility] today. He will have repeat labs in 3 days, CBC and BMP. Hospital Course Patient is a 70-year-old male with indwelling Quintanilla catheter came in with because of copious amounts of blood clots patient does take Plavix. Patient has a chronic Quintanilla catheter patient is presently senior care resident. Patient does have history of PTSD advanced. Other medical history includes COPD, CVA TIA, diabetes mellitus type 2, DVT, GERD, hypertension, CO, PE, sleep apnea and uses CPAP, peripheral neuropathy, gait dysfunction with frequent falls, chronic pain and hypothyroidism. Patient does have benign prostatic hypertrophy and prostatic surgery in the past patient was evaluated by urology. Patient was having a lot of blood clots which resolved and patient just of bloody urine now patient is also company of testicular pain was also complaining of hematuria in the EC. UA sample from indwelling catheter was incomplete and revealed >182 RBC. Pt presented with elevated WBC of 18.9 , however he has remained afebrile. Patient does have a some tremor which she says is chronic and related to his high anxiety as per the patient. Patient does have hyponatremia, 120 on admission. Patient has elevated potassium of 5.6. Patient's bicarbonate is 17 secondary to hyperchloremia. Lactic acid on admission was 2.7. his BUN on admission was 22, creatinine 1.46. Patient's Plavix was placed on hold. He had a consult to urology. Abdomen bladder ultrasound completed 01/16/21 revealed bilateral simple cysts within the kidney. There is no nephrolithiasis or hydronephrosis. Pt underwent Q4hr bladder irrigation this admission which allowed for adequate urine output. There are no more visible clots in his quintanilla catheter. He has been resumed on plavix and his current hgb is stable at 7.7. Other labs reviewed include sodium of 135, potassium 4.5, BUN 13, creatinine 0.91. Patient received IV Rocephin, 3 doses. This is adequate for urinary tract infection. He is on antibiotics for discharge. Urine is clear yellow at this time and there are minimal to no clots present in the indwelling catheter t ubing or drainage bag. White blood cell count has repleted it is now 4.4. Lactic acid came down to 1.9. Vital signs remained stable afebrile, heart rate 72, blood pressure 144/62, 97% on 3 L nasal cannula. Patient does wear chronic oxygen at home. 01/18/2021 Patient is evaluated at the bedside today, his creatinine has normalized. His White blood cell count is 4.4 today. Yesterday afternoon placed was removed on his daily dose of Plavix. There have been no signs of active bleeding. Indwelling catheter tubing and drainage bag reveal urinalysis clear yellow there are minimal to no clots present. Catheter is draining without incident. There has been no need to irrigate the catheter Quintanilla in the last 24 hours. Patient's hemoglobin today 7.7 which is increased from 7.4. Suspect this will continue to increase. Patient doest not need any antibiotics on discharge he completed 3 days of IV Rocephin. Lungs are clear, S1-S2 auscultated. Abdomen is large and obese however it is soft and nontender. Patient denies any abdominal pain, nausea, vomiting. He denies any dysuria. He does wear chronic oxygen, he is saturating 97% on 3 L nasal cannula. Patient is cleared medically for discharge back to rehab today. Thank you for this consultation. Thank you for allowing us to participate in the care of this patient. Patient Condition at Discharge: Fair Plan - Discharge Summary Discharge Rx Participant: No New Discharge Prescriptions: Continue Levothyroxine Sodium [Synthroid] 50 mcg PO HS@2100 Finasteride [Proscar] 5 mg PO DAILY@0700 Sertraline [Zoloft] 200 mg PO DAILY@0700 allopurinoL [Zyloprim] 100 mg PO BID@0700,2100 Tamsulosin [Flomax] 0.8 mg PO HS@2100 metFORMIN HCL [Glucophage] 1,000 mg PO BID@0700,1700 Albuterol Sulfate [Proair Hfa] 2 puff INHALATION RT-Q4H PRN PRN Reason: Shortness Of Breath Diclofenac Sodium Gel [Voltaren Gel] 4 gram TOPICAL Q12H PRN PRN Reason: CHRONIC PAIN Pantoprazole Sodium [Protonix] 40 mg PO BID@0500,1600 Acetaminophen Tab [Tylenol] 650 mg PO Q6HR PRN tab PRN Reason: Fever And/ Or Pain bisacodyL [Dulcolax] 10 mg RECTAL Q72H PRN PRN Reason: Constipation Calcium Carbonate [Tums] 500 mg PO TID@0700,1200,1700 carBAMazepine [TEGretol] 200 mg PO TID@0700,1200,2100 Carboxymethylcellulose Sodium [Refresh Tears] 1 drop BOTH EYES QID@07,12,17,21 Dextrose Chew [Glucose Chew Tab] 4 gm PO Q10M PRN PRN Reason: Blood Sugar - Low Fluticasone/Vilanterol [Breo Ellipta 100-25 Mcg Inhaler] 1 puff INHALATION RT-DAILY@0700 Hydrocortisone Cream [Hydrocortisone 2.5% Cream] 1 applic TOPICAL Q6H PRN PRN Reason: Anal Inflammation Magnesium Hydroxide [Milk of Magnesia] 2,400 mg PO Q48H PRN PRN Reason: Constipation Na Phos,M-B/Na Phos,Di-Ba [Fleet Adult] 133 ml RECTAL Q96H PRN PRN Reason: Constipation Polyethylene Glycol 3350 [Miralax] 17 gm PO DAILY@1200 Sennosides/Docusate Sodium [Senna Plus 8.6-50 mg Tablet] 1 tab PO HS@2100 Simethicone [Gas-X] 125 mg PO BID@0700,1700 ALPRAZolam [Xanax] 0.5 mg PO HS@2100 ALPRAZolam [Xanax] 0.25 mg PO DAILY@0700 Atorvastatin [Lipitor] 40 mg PO HS@2100 Benzocaine [Anbesol] 1 applic DENTAL Q6H PRN PRN Reason: TOOTH PAIN Carvedilol [Coreg] 6.25 mg PO BID@0700,1700 diphenhydrAMINE [Benadryl] 25 mg PO Q6H PRN PRN Reason: Itching INSULIN LISPRO (humaLOG) [humaLOG] 14 unit SQ HS@1700 Ipratropium-Albuterol Nebulize [Duoneb 0.5 mg-3 mg/3 ml Soln] 3 ml INHALATION RT-QID@07,12,17, buPROPion XL [Wellbutrin XL] 300 mg PO DAILY@0700 Clopidogrel Bisulfate [Plavix] 75 mg PO DAILY@0700 Insulin Glargine,Hum.rec.anlog [Semglee Pen] 70 unit SQ HS@2100 lisinopriL 20 mg PO DAILY@0700 Ziprasidone [Geodon] 20 mg PO TID@0700,1300,2100 Discharge Medication List Finasteride [Proscar] 5 mg PO DAILY@0700 12/02/14 [History] Levothyroxine Sodium [Synthroid] 50 mcg PO HS@209912/02/14 [History] Sertraline [Zoloft] 200 mg PO DAILY@0700 12/02/14 [History] Tamsulosin [Flomax] 0.8 mg PO HS@209912/02/14 [History] allopurinoL [Zyloprim] 100 mg PO BID@0700,209912/02/14 [History] metFORMIN HCL [Glucophage] 1,000 mg PO BID@0700,1700 03/06/18 [History] Albuterol Sulfate [Proair Hfa] 2 puff INHALATION RT-Q4H PRN 08/20/18 [History] Diclofenac Sodium Gel [Voltaren Gel] 4 gram TOPICAL Q12H PRN 08/20/18 [History] Pantoprazole Sodium [Protonix] 40 mg PO BID@0500,1600 10/21/18 [History] Acetaminophen Tab [Tylenol] 650 mg PO Q6HR PRN tab 04/28/19 [Rx] Calcium Carbonate [Tums] 500 mg PO TID@0700,1200,1700 15/21 [History] Carboxymethylcellulose Sodium [Refresh Tears] 1 drop BOTH EYES QID@07,12,17,07/03/20 [History] Dextrose Chew [Glucose Chew Tab] 4 gm PO Q10M PRN 07/03/20 [History] Fluticasone/Vilanterol [Breo Ellipta 100-25 Mcg Inhaler] 1 puff INHALATION RT- DAILY@0707/03/20 [History] Hydrocortisone Cream [Hydrocortisone 2.5% Cream] 1 applic TOPICAL Q6H PRN 07/03/20 [History] Magnesium Hydroxide [Milk of Magnesia] 2,400 mg PO Q48H PRN 07/03/20 [History] Na Phos,M-B/Na Phos,Di-Ba [Fleet Adult] 133 ml RECTAL Q96H PRN 07/03/20 [History] Polyethylene Glycol 3350 [Miralax] 17 gm PO DAILY@119907/03/20 [History] Sennosides/Docusate Sodium [Senna Plus 8.6-50 mg Tablet] 1 tab PO HS@209907/03/20 [History] Simethicone [Gas-X] 125 mg PO BID@0700,169907/03/20 [History] bisacodyL [Dulcolax] 10 mg RECTAL Q72H PRN 07/03/20 [History] carBAMazepine [TEGretol] 200 mg PO TID@0700,1200,209907/03/20 [History] ALPRAZolam [Xanax] 0.25 mg PO DAILY@69901/14/21 [History] ALPRAZolam [Xanax] 0.5 mg PO HS@209901/14/21 [History] Atorvastatin [Lipitor] 40 mg PO HS@209901/14/21 [History] Benzocaine [Anbesol] 1 applic DENTAL Q6H PRN 01/14/21 [History] Carvedilol [Coreg] 6.25 mg PO BID@0700,169901/14/21 [History] Clopidogrel Bisulfate [Plavix] 75 mg PO DAILY@0701/14/21 [History] INSULIN LISPRO (humaLOG) [humaLOG] 14 unit SQ HS@169901/14/21 [History] Insulin Glargine,Hum.rec.anlog [Semglee Pen] 70 unit SQ HS@209901/14/21 [History] Ipratropium-Albuterol Nebulize [Duoneb 0.5 mg-3 mg/3 ml Soln] 3 ml INHALATION RT-QID@07,12,17,01/14/21 [History] Ziprasidone [Geodon] 20 mg PO TID@0700,1300,209901/14/21 [History] buPROPion XL [Wellbutrin XL] 300 mg PO DAILY@0701/14/21 [History] diphenhydrAMINE [Benadryl] 25 mg PO Q6H PRN 01/14/21 [History] lisinopriL 20 mg PO DAILY@69901/14/21 [History] Follow up Appointment(s)/Referral(s): Carloz Rubio MD [STAFF PHYSICIAN] - 1 Week [facility],Clinic [Primary Care Provider] - 1-2 days Ambulatory/Diagnostic Orders: Basic Metabolic Panel [LAB.AMB] Time Frame: 3 Days, Location: None Selected Complete Blood Count w/diff [LAB.AMB] Time Frame: 3 Days, Location: None Selected Activity/Diet/Wound Care/Special Instructions: Plan is to return to [facility] for hematuria Discharge Disposition: TRANSFER TO SNF/ECF
--- NOTE | 2021-01-18 17:44 | P.PN ---
Subjective No acute overnight event, urine is clear yellow this am on plavix . Denies any abdominal pain or dysuria. Objective - Vital Signs Vital signs: Vital Signs Temp 97.6 F 01/18/21 11:12 Pulse 72 01/18/21 11:12 Resp 18 01/18/21 11:12 BP 144/62 01/18/21 11:12 Pulse Ox 97 01/18/21 11:12 Intake & Output 01/17/21 01/18/21 01/18/21 18:59 06:59 18:59 Intake Total 960 1220 1020 Output Total 3100 2700 975 Balance -2140 -1480 45 Weight 132 kg Intake: IV 1220 Invasive Line 1 20 Sodium Chloride 0.9% 1, 1200 000 ml @ 100 mls/hr IV . Q10H ALONSO Rx#:[id number] Oral 960 1020 Output: Urine 3100 2700 975 Other: Voiding Method Indwelling Catheter Indwelling Catheter Indwelling Catheter - Constitutional General appearance: Present: no acute distress - Gastrointestinal General gastrointestinal: Present: soft. Absent: distended - Genitourinary Genitourinary Comment(s): Urine clear - Psychiatric Psychiatric: Present: A&O x's 3 - Labs CBC & Chem 7: 01/18/21 07:35 01/18/21 07:35 Labs: Abnormal Lab Results - Last 24 Hours (Table) 01/17/21 01/18/21 01/18/21 Range/Units 19:59 06:05 07:35 RBC 2.61 L (4.30-5.90) m/uL Hgb 7.7 L (13.0-17.5) gm/dL Hct 23.0 L (39.0-53.0) % Lymphocytes # 0.7 L (1.0-4.8) k/uL Sodium (137-145) mmol/L Glucose (74-99) mg/dL POC Glucose (mg/dL) 305 H 212 H (75-99) mg/dL 01/18/21 01/18/21 Range/Units 07:35 11:48 RBC (4.30-5.90) m/uL Hgb (13.0-17.5) gm/dL Hct (39.0-53.0) % Lymphocytes # (1.0-4.8) k/uL Sodium 135 L (137-145) mmol/L Glucose 192 H (74-99) mg/dL POC Glucose (mg/dL) 270 H (75-99) mg/dL Assessment and Plan Assessment: 70 yo admitted with gross hematuria, hx of chronic urinary retention been managed by quintanilla. Has [address], urine is clear this am on Plavix -Okay for discharge from urology standpoint, can follow-up as an outpatient with Dr. Townsend for cystoscopy in 1-2 weeks .
== END 2021-01-18 14:55 | DRG 872 ==
LOC: EC 21:16 → 5NMEDONC 22:52 → 3SCARD 01-15 09:03
PROVIDERS: ADMIT Hospitalist; ATTEND Hospitalist
DX: A41.9 Sepsis, unspecified organism (principal); E87.1 Hypo-osmolality and hyponatremia; E87.2 Acidosis; Z68.41 Body mass index [BMI] 40.0-44.9, adult; I69.354 Hemiplegia and hemiparesis following cerebral infarction affecting left non-dominant side; I69.351 Hemiplegia and hemiparesis following cerebral infarction affecting right dominant side; J44.1 Chronic obstructive pulmonary disease with (acute) exacerbation; J96.10 Chronic respiratory failure, unspecified whether with hypoxia or hypercapnia; N17.9 Acute kidney failure, unspecified; N39.0 Urinary tract infection, site not specified; E03.9 Hypothyroidism, unspecified; E11.42 Type 2 diabetes mellitus with diabetic polyneuropathy; E11.65 Type 2 diabetes mellitus with hyperglycemia; E86.0 Dehydration; E87.5 Hyperkalemia; E87.8 Other disorders of electrolyte and fluid balance, not elsewhere classified; F32.9 Major depressive disorder, single episode, unspecified; I69.328 Other speech and language deficits following cerebral infarction; F43.10 Post-traumatic stress disorder, unspecified; E66.01 Morbid (severe) obesity due to excess calories; K75.9 Inflammatory liver disease, unspecified; G47.30 Sleep apnea, unspecified; I10 Essential (primary) hypertension; Z20.822 Contact with and (suspected) exposure to COVID-19; Z99.81 Dependence on supplemental oxygen; R29.6 Repeated falls; I25.2 Old myocardial infarction; M1A.9XX1 Chronic gout, unspecified, with tophus (tophi); G89.29 Other chronic pain; Z80.52 Family history of malignant neoplasm of bladder; Z86.19 Personal history of other infectious and parasitic diseases; Z86.010 Personal history of colon polyps; M54.9 Dorsalgia, unspecified; N40.1 Benign prostatic hyperplasia with lower urinary tract symptoms; R33.8 Other retention of urine; R25.1 Tremor, unspecified; N50.819 Testicular pain, unspecified; R31.0 Gross hematuria; Z79.02 Long term (current) use of antithrombotics/antiplatelets; Z79.4 Long term (current) use of insulin; Z79.890 Hormone replacement therapy; Z79.899 Other long term (current) drug therapy; Z80.1 Family history of malignant neoplasm of trachea, bronchus and lung; Z86.711 Personal history of pulmonary embolism; Z87.19 Personal history of other diseases of the digestive system; Z87.440 Personal history of urinary (tract) infections; Z88.6 Allergy status to analgesic agent; Z88.8 Allergy status to other drugs, medicaments and biological substances; Z89.021 Acquired absence of right finger(s)
CPT/HCPCS: 36415; 51798; 71046; 76770; 80048; 80053; 81001; 82550; 83605; 83735; 84100; 84484; 85025; 85610; 85730; 87635; 93005; 94640; 94660; 94760; 96360; 96361; 96365; 96366; 96375; 96376; 99285

== ENCOUNTER 2022-08-24 11:35 | Inpatient (IN) | payer OTHER, MEDICARE ==
[2022-08-24] MEDS ORDERED: HYDROCORTISONE SUCCINATE 100 MG/2 ML VIAL IV STA (11:41)
--- NOTE | 2022-08-24 11:50 | ED ---
General Adult HPI - General Chief complaint: Urogenital Stated complaint: Recheck Source: patient, EMS, RN notes reviewed, old records reviewed Mode of arrival: EMS Limitations: no limitations - History of Present Illness Initial comments: This is a 72-year-old male who comes to us from [facility]. Patient initially was at a alf wasn't acting right and had a high fever so they sent the patient to the ER. The report I received from [facility] ER doctor was poor. Physician stated that the patient had a fever and his blood pressure is low but did not know the source of the infection didn't know the lactic acid didn't know the vital signs at the time and after trying to investigate what the problem was anxiety told him to try to stabilize patient s ent him to me immediately. Patient was given Zosyn and ankle are to leaving. Patient was also given 2 and half liters of fluid total. Patient himself is not sure why. He thinks he has urinary tract infection. Patient does have a catheter in place which is old - Related Data Home Medications Medication Instructions Recorded Confirmed Finasteride [Proscar] 5 mg PO DAILY@0700 12/02/14 01/14/21 Levothyroxine Sodium [Synthroid] 50 mcg PO HS@209912/02/14 01/14/21 Sertraline [Zoloft] 200 mg PO DAILY@0700 12/02/14 01/14/21 Tamsulosin [Flomax] 0.8 mg PO HS@2100 12/02/14 01/14/21 allopurinoL [Zyloprim] 100 mg PO BID@0700,2100 12/02/14 01/14/21 metFORMIN HCL [Glucophage] 1,000 mg PO BID@0700,1700 03/06/18 01/14/21 Albuterol Sulfate [Proair Hfa] 2 puff INHALATION RT-Q4H PRN 08/20/18 01/14/21 Diclofenac Sodium Gel [Voltaren 4 gram TOPICAL Q12H PRN 08/20/18 01/14/21 Gel] Pantoprazole Sodium [Protonix] 40 mg PO BID@0500,1600 10/21/18 01/14/21 Calcium Carbonate [Tums] 500 mg PO TID@0700,1200,1700 07/03/20 01/14/21 Carboxymethylcellulose Sodium 1 drop BOTH EYES QID@07,12,17,21 07/03/20 01/14/21 [Refresh Tears] Dextrose Chew [Glucose Chew Tab] 4 gm PO Q10M PRN 07/03/20 01/14/21 Fluticasone/Vilanterol [Breo 1 puff INHALATION RT-DAILY@0700 07/03/20 01/14/21 Ellipta 100-25 Mcg Inhaler] Hydrocortisone Cream 1 applic TOPICAL Q6H PRN 07/03/20 01/14/21 [Hydrocortisone 2.5% Cream] Magnesium Hydroxide [Milk of 2,400 mg PO Q48H PRN 07/03/20 01/14/21 Magnesia] Na Phos,M-B/Na Phos,Di-Ba [Fleet 133 ml RECTAL Q96H PRN 07/03/20 01/14/21 Adult] Sennosides/Docusate Sodium [Senna 1 tab PO HS@209907/03/20 01/14/21 Plus 8.6-50 mg Tablet] Simethicone [Gas-X] 125 mg PO BID@0700,1700 07/03/20 01/14/21 bisacodyL [Dulcolax] 10 mg RECTAL Q72H PRN 07/03/20 01/14/21 carBAMazepine [TEGretol] 200 mg PO TID@0700,1200,209907/03/20 01/14/21 polyethylene glycoL 3350 [Miralax] 17 gm PO DAILY@119907/03/20 01/14/21 ALPRAZolam [Xanax] 0.25 mg PO DAILY@0701/14/21 01/14/21 ALPRAZolam [Xanax] 0.5 mg PO HS@209901/14/21 01/14/21 Atorvastatin [Lipitor] 40 mg PO HS@209901/14/21 01/14/21 Benzocaine [Anbesol] 1 applic DENTAL Q6H PRN 01/14/21 01/14/21 Clopidogrel Bisulfate [Plavix] 75 mg PO DAILY@0701/14/21 01/14/21 INSULIN LISPRO (humaLOG) [humaLOG] 14 unit SQ HS@169901/14/21 01/14/21 Insulin Glargine,Hum.rec.anlog 70 unit SQ HS@209901/14/21 01/14/21 [Semglee Pen] Ipratropium-Albuterol Nebulize 3 ml INHALATION RT-QID@07,12,,01/14/21 01/14/21 [Duoneb 0.5 mg-3 mg/3 ml Soln] Ziprasidone [Geodon] 20 mg PO TID@0700,1300,2100 01/14/21 01/14/21 buPROPion XL [Wellbutrin XL] 300 mg PO DAILY@0701/14/21 01/14/21 carvediloL [Coreg] 6.25 mg PO BID@0700,1700 01/14/21 01/14/21 diphenhydrAMINE [Benadryl] 25 mg PO Q6H PRN 01/14/21 01/14/21 lisinopriL [Prinivil] 20 mg PO DAILY@0701/14/21 01/14/21 Previous Rx's Medication Instructions Recorded Acetaminophen Tab [Tylenol] 650 mg PO Q6HR PRN tab 04/28/19 Allergies Allergy/AdvReac Type Severity Reaction Status Date / Time aspirin Allergy ABDOMINAL Verified 08/24/22 11:44 DISCOMFORT etodolac [From Lodine] Allergy Unknown Verified 08/24/22 11:44 oxybutynin Allergy Unknown Verified 08/24/22 11:44 Review of Systems ROS Statement: Those systems with pertinent positive or pertinent negative responses have been documented in the HPI. ROS Other: All systems not noted in ROS Statement are negative. Past Medical History Past Medical History: COPD, CVA/TIA, Diabetes Mellitus, Deep Vein Thrombosis (DVT), GERD/Reflux, Hypertension, Myocardial Infarction (SC), Prostate Disorder, Pulmonary Embolus (PE), Sleep Apnea/CPAP/BIPAP, Thyroid Disorder Additional Past Medical History / Comment(s): Morbid obesity, obstructive sleep apnea uses CPAP-uses O2 at 5 L during night with cpap, uses 3 liters nasal cannula at home continuous, SOB,history of peripheral neuropathy severe associated related to diabetes mellitus, gait dysfunction and frequent falls- uses w/c-able to stand to transfer, chronic back pain, gout, BPH, TIA/CVA-loyda arm and leg weakness, previous history of C. diff colitis back in 2010,h ypothyroidism,colon polyps, per speech is garbled/slurred which is the residual from old stroke Last Myocardial Infarction Date:: 2010 History of Any Multi-Drug Resistant Organisms: None Reported Date of last positivie culture/infection: None MDRO Source:: None Past Surgical History: Hernia Repair Additional Past Surgical History / Comment(s): hiatal hernia repair x 2, umbilical hernia repair,2nd digit rt hand amputated Past Anesthesia/Blood Transfusion Reactions: No Reported Reaction Past Psychological History: Bipolar, Depression, PTSD Smoking Status: Never smoker Past Alcohol Use History: None Reported Past Drug Use History: None Reported - Past Family History Father Family Medical History: Cancer Additional Family Medical History / Comment(s): lung Mother Family Medical History: Cancer Additional Family Medical History / Comment(s): bladder General Exam - General Exam Comments Initial Comments: GENERAL: Patient is well-developed and well-nourished. Patient is nontoxic and well- hydrated and is in mild distress. Pulse ox was 88% on room air ENT: Neck is soft and supple. No significant lymphadenopathy is noted. Oropharynx is clear. Moist mucous membranes. Neck has full range of motion without eliciting any pain. EYES: The sclera were anicteric and conjunctiva were pink and moist. Extraocular movements were intact and pupils were equal round and reactive to light. Eyelids were unremarkable. PULMONARY: Unlabored respirations. Good breath sounds bilaterally. No audible rales rh onchi or wheezing was noted. CARDIOVASCULAR: There is a regular rate and rhythm without any murmurs gallops or rubs. ABDOMEN: Soft and nontender with normal bowel sounds. SKIN: Skin is clear with no lesions or rashes and otherwise unremarkable. NEUROLOGIC: Patient is alert and oriented x3. Cranial nerves II through XII are grossly intact. Motor and sensory are also intact. Normal speech, volume and content. Symmetrical smile. MUSCULOSKELETAL: Normal extremities with adequate strength and full range of motion. LYMPHATICS: No significant lymphadenopathy is noted PSYCHIATRIC: Normal psychiatric evaluation. Limitations: no limitations General appearance: alert, in no apparent distress Course Vital Signs 08/24/22 08/24/22 08/24/22 11:39 12:15 13:00 Temperature 98 F Pulse Rate 72 64 67 Respiratory 18 18 18 Rate Blood Pressure 91/55 91/49 98/54 O2 Sat by Pulse 88 L 99 99 Oximetry Medical Decision Making - Medical Decision Making EKG was interpreted by myself shows sinus rhythm at 70 bpm CO interval is 244 QRS is 140 QT interval 420 QTC is 441. Patient's EKG shows no ST segment elevation does show a right branch block. Was pt. sent in by a medical professional or institution (, PA, CEMENT KILN OPERATOR, urgent care, hospital, or alf...) When possible be specific @ -emergency doctor [facility] sent the patient to us Did you speak to anyone other than the patient for history (EMS, parent, family, police, friend...)? What history was obtained from this source @ -I spoke with the ER doctor from [facility] for history of this patient Did you review nursing and triage notes (agree or disagree)? Why? @ -I reviewed and agree with nursing and triage notes Were old charts reviewed (outside hosp., previous admission, EMS record, old EKG, old radiological studies, urgent care reports/EKG's, alf records)? Report findings @ -I reviewed all lab work and charting on this patient from [facility] Differential Diagnosis (chest pain, altered mental status, abdominal pain women, abdominal pain men, vaginal bleeding, weakness, fever, dyspnea, syncope, headache, dizziness, GI bleed, back pain, seizure, CVA, palpatations, mental health, musculoskeletal)? @ -Differential Fever: Pneumonia, viral URI, endocarditis, myocarditis, pericarditis, otitis, sinusitis, peritonsillar Abscess, retropharyngeal Abscess, epiglottitis, peritonitis, appendicitis, Savi cystitis, diverticulitis, hepatitis, colitis, UTI, pyelonephritis, prostatitis, epididymitis, meningitis, encephalitis, p ulmonary embolism, CVA, thyroid storm, pancreatitis, adrenal crisis, cavernous sinus thrombosis, this is not meant to be an all-inclusive list. EKG interpreted by me (3pts min.). @ -As above X-rays interpreted by me (1pt min.). @ -Chest x-rays interpreted by myself chest x-ray shows no obvious infiltrate CT interpreted by me (1pt min.). @ -None done U/S interpreted by me (1pt. min.). @ -None done What testing was considered but not performed or refused? (CT, X-rays, U/S, labs)? Why? @ -None What meds were considered but not given or refused? Why? @ -None Did you discuss the management of the patient with other professionals (pr ofessionals i.e. , PA, CEMENT KILN OPERATOR, lab, RT, psych nurse, social insurance administrator, retail team member, teacher, police officer crime prevention, medical case worker)? Give summary @ -I spoke with [facility] agreed to admit the patient admitted the patient wrote admitting orders Was smoking cessation discussed for >3mins.? @ -No Was critical care preformed (if so, how long)? @ -35 minutes Were there social determinants of health that impacted care today? How? (Homelessness, low income, unemployed, alcoholism, drug addiction, transportation, low edu. Level, literacy, decrease access to med. care, correction, rehab)? @ -No Was there de-escalation of care discussed even if they declined (Discuss DNR or withdrawal of care, Hospice)? DNR status @ -No What co-morbidities impacted this encounter? (DM, HTN, Smoking, COPD, CAD, Cancer, CVA, ARF, Chemo, Hep., AIDS, mental health diagnosis, sleep apnea, morbid obesity)? @ -None Was patient admitted / discharged? Hospital course, mention meds given and rou te, prescriptions, significant lab abnormalities, going to OR and other pertinent info. @ -Patient was given 2 g Rocephin here for the urinary tract infection. Patient also was given a bolus of fluid and pressures remained stable temperature remained normal and I spoke with each [facility] we admitted the patient for sepsis and urinary tract infection Undiagnosed new problem with uncertain prognosis? @ -No Drug Therapy requiring intensive monitoring for toxicity (Heparin, Nitro, Insulin, Cardizem)? @ -No Were any procedures done? @ -No Diagnosis/symptom? @ -Urinary Tract infection Acute, or Chronic, or Acute on Chronic? @ -Acute Uncomplicated (without systemic symptoms) or Complicated (systemic symptoms)? @ -Complicated Side effects of treatment? @ -No Exacerbation, Progression, or Severe Exacerbation? @ -No Poses a threat to life or bodily function? How? (Chest pain, USA, SC, pneumonia, PE, COPD, DKA, ARF, appy, cholecystitis, CVA, Diverticulitis, Homicidal, Suicidal, threat to staff... and all critical care pts) @ -Yes this can lead to sepsis and endocarditis dysfunction Diagnosis/symptom? @ -Sepsis Acute, or Chronic, or Acute on Chronic? @ -Acute Uncomplicated (without systemic symptoms) or Complicated (systemic symptoms)? @ -Complicated Side effects of treatment? @ -none Exacerbation, Progression, or Severe Exacerbation] @ -no Poses a threat to life or bodily function? @ -Yes this could lead to poor perfusion and end organ dysfunction - Lab Data Result diagrams: 08/24/22 11:45 08/24/22 11:45 Lab Results 08/24/22 08/24/22 08/24/22 Range/Units 11:45 11:45 11:45 WBC 10.9 H (3.8-10.6) k/uL RBC 3.29 L (4.30-5.90) m/uL Hgb 10.2 L (13.0-17.5) gm/dL Hct 30.0 L (39.0-53.0) % MCV 91.2 (80.0-100.0) fL MCH 31.0 (25.0-35.0) pg MCHC 34.0 (31.0-37.0) g/dL RDW 16.5 H (11.5-15.5) % Plt Count 118 L (150-450) k/uL MPV 8.1 Neutrophils % 91 % Lymphocytes % 4 % Monocytes % 4 % Eosinophils % 0 % Basophils % 0 % Neutrophils # 10.0 H (1.3-7.7) k/uL Lymphocytes # 0.4 L (1.0-4.8) k/uL Monocytes # 0.4 (0-1.0) k/uL Eosinophils # 0.0 (0-0.7) k/uL Basophils # 0.0 (0-0.2) k/uL Anisocytosis Slight Sodium 136 L (137-145) mmol/L Potassium 5.3 H (3.5-5.1) mmol/L Chloride 104 (98-107) mmol/L Carbon Dioxide 25 (22-30) mmol/L Anion Gap 7 mmol/L BUN 31 H (9-20) mg/dL Creatinine 1.52 H (0.66-1.25) mg/dL Est GFR (CKD-EPI)AfAm 52 (>60 ml/min/1.73 sqM) Est GFR (CKD-EPI)NonAf 45 (>60 ml/min/1.73 sqM) Glucose 200 H (74-99) mg/dL Plasma Lactic Acid Anthony 1.9 (0.7-2.0) mmol/L Calcium 7.0 L (8.4-10.2) mg/dL Total Bilirubin 0.4 (0.2-1.3) mg/dL AST 27 (17-59) U/L ALT 23 (4-49) U/L Alkaline Phosphatase 90 (38-126) U/L Troponin I (0.000-0.034) ng/mL NT-Pro-B Natriuret Pep pg/mL Total Protein 5.3 L (6.3-8.2) g/dL Albumin 2.8 L (3.5-5.0) g/dL Urine Color Urine Appearance (Clear) Urine pH (5.0-8.0) Ur Specific [place] (1.001-1.035) Urine Protein (Negative) Urine Glucose (UA) (Negative) Urine Ketones (Negative) Urine Blood (Negative) Urine Nitrite (Negative) Urine Bilirubin (Negative) Urine Urobilinogen (<2.0) mg/dL Ur Leukocyte Esterase (Negative) Urine RBC (0-5) /hpf Urine WBC (0-5) /hpf Urine WBC Clumps (None) /hpf Ur Squamous Epith Cells (0-4) /hpf Urine Bacteria (None) /hpf Urine Mucus (None) /hpf 08/24/22 08/24/22 08/24/22 Range/Units 11:45 11:45 13:06 WBC (3.8-10.6) k/uL RBC (4.30-5.90) m/uL Hgb (13.0-17.5) gm/dL Hct (39.0-53.0) % MCV (80.0-100.0) fL MCH (25.0-35.0) pg MCHC (31.0-37.0) g/dL RDW (11.5-15.5) % Plt Count (150-450) k/uL MPV Neutrophils % % Lymphocytes % % Monocytes % % Eosinophils % % Basophils % % Neutrophils # (1.3-7.7) k/uL Lymphocytes # (1.0-4.8) k/uL Monocytes # (0-1.0) k/uL Eosinophils # (0-0.7) k/uL Basophils # (0-0.2) k/uL Anisocytosis Sodium (137-145) mmol/L Potassium (3.5-5.1) mmol/L Chloride (98-107) mmol/L Carbon Dioxide (22-30) mmol/L Anion Gap mmol/L BUN (9-20) mg/dL Creatinine (0.66-1.25) mg/dL Est GFR (CKD-EPI)AfAm (>60 ml/min/1.73 sqM) Est GFR (CKD-EPI)NonAf (>60 ml/min/1.73 sqM) Glucose (74-99) mg/dL Plasma Lactic Acid Anthony (0.7-2.0) mmol/L Calcium (8.4-10.2) mg/dL Total Bilirubin (0.2-1.3) mg/dL AST (17-59) U/L ALT (4-49) U/L Alkaline Phosphatase (38-126) U/L Troponin I 0.064 H* (0.000-0.034) ng/mL NT-Pro-B Natriuret Pep 544 pg/mL Total Protein (6.3-8.2) g/dL Albumin (3.5-5.0) g/dL Urine Color Yellow Urine Appearance Cloudy (Clear) Urine pH 5.0 (5.0-8.0) Ur Specific [place] 1.021 (1.001-1.035) Urine Protein Trace H (Negative) Urine Glucose (UA) 4+ H (Negative) Urine Ketones Negative (Negative) Urine Blood Trace H (Negative) Urine Nitrite Negative (Negative) Urine Bilirubin Negative (Negative) Urine Urobilinogen <2.0 (<2.0) mg/dL Ur Leukocyte Esterase Large H (Negative) Urine RBC 8 H (0-5) /hpf Urine WBC 108 H (0-5) /hpf Urine WBC Clumps Many H (None) /hpf Ur Squamous Epith Cells <1 (0-4) /hpf Urine Bacteria Occasional H (None) /hpf Urine Mucus Rare H (None) /hpf Critical Care Time Critical Care Time: Yes Total Critical Care Time: 35 Disposition Clinical Impression: Urinary tract infection, Sepsis Disposition: ADMITTED IP TO THIS HOSP Referrals: Lori Schultz PAC [Primary Care Provider] - 1-2 days Time of Disposition: 13:57
--- NOTE | 2022-08-24 12:06 | XR ---
EXAMINATION TYPE: XR chest 2V DATE OF EXAM: 08/24/2022 12:01 PM COMPARISON: Chest radiographs from 01/14/2021 TECHNIQUE: XR chest 2V Frontal and lateral views of the chest. CLINICAL INDICATION:Male, 72 years old with history of difficulty breathing; FINDINGS: Lungs/Pleura: There is no evidence of pleural effusion, focal consolidation, or pneumothorax. Pulmonary vascularity: Pulmonary vascular congestion. Heart/mediastinum: Cardiomediastinal silhouette is enlarged and stable. Musculoskeletal: No acute osseous pathology. IMPRESSION: Low lung volumes with a generalized hazy appearance which could represent atelectasis versus pulmonar y edema correlate with serum BNP.
[2022-08-24 12:22] LABS: Anisocytosis Slight; Basophils % (A) 0 %; Eosinophils % (A) 0 %; HGB 10.2 gm/dL (13.0-17.5); Lymphocytes # (A) 0.4 k/uL (1.0-4.8); Lymphocytes % (A) 4 %; MCV 91.2 fL (80.0-100.0); Mean Platelet Volume 8.1; Monocytes # (A) 0.4 k/uL (0-1.0); Monocytes % (A) 4 %; Neutrophils % (A) 91 %; Platelet Count 118 k/uL (150-450); RBC 3.29 m/uL (4.30-5.90); RDW 16.5 % (11.5-15.5); WBC 10.9 k/uL (3.8-10.6)
[2022-08-24 12:26] LABS: Albumin 2.8 g/dL (3.5-5.0); Potassium 5.3 mmol/L (3.5-5.1); Total Bilirubin 0.4 mg/dL (0.2-1.3); Total Protein 5.3 g/dL (6.3-8.2)
[2022-08-24 13:30] LABS: Appearance,Urine Cloudy (Clear); Bacteria,Urine Occasional /hpf; Bilirubin,Urine Negative (Negative); Blood,Urine Trace (Negative); Color,Urine Yellow; Glucose,Urine (UA) 4+ (Negative); Ketones,Urine Negative (Negative); Leukocyte Esterase,Urine Large (Negative); Mucus,Urine Rare /hpf; Nitrite,Urine Negative (Negative); Protein,Urine Trace (Negative); RBC,Urine 8 /hpf (0-5); Specific Gravity,Urine 1.021 (1.001-1.035); Squamous Epithelial Cell,Urine <1 /hpf (0-4); Urobilinogen,Urine <2.0 mg/dL (<2.0); WBC,Urine 108 /hpf (0-5)
[2022-08-24] MEDS ORDERED: cefTRIAXone IN SWFI 1,000 MG/10 ML SYRINGE IVP STA (13:44)
[2022-08-24] MEDS ORDERED: SODIUM CHLORIDE 0.9% 1,000 ML IV ONE (14:14)
[2022-08-24] MEDS ORDERED: VANCOMYCIN IV PER PHARMACY 1 EACH MISC MISCELLANE PRN (14:15)
[2022-08-24] MEDS ORDERED: guaiFENesin-DM 100-10MG/5ML 10 ML CUP PO PRN (15:53)
[2022-08-24] MEDS ORDERED: BENZOCAINE 20 % GEL 11.9 GM TUBE MM PRN (15:53)
[2022-08-24] MEDS ORDERED: bisacodyL 10 MG SUPP RECTAL PRN (15:53)
[2022-08-24] MEDS ORDERED: HYDROCORTISONE 1% CREAM 30 GM TUBE TOPICAL PRN (15:53)
[2022-08-24] MEDS ORDERED: MAGNESIUM HYDROXIDE 2,400 MG/10 ML CUP PO PRN (15:53)
[2022-08-24] MEDS ORDERED: SIMETHICONE 80 MG CHEWABLE PO PRN (15:53)
[2022-08-24] MEDS ORDERED: BENZONATATE 100 MG CAP PO PRN (15:53)
[2022-08-24] MEDS ORDERED: ALBUTEROL NEBULIZED 2.5 MG/3 ML INHALATION PRN (15:53)
[2022-08-24] MEDS ORDERED: ONDANSETRON 4 MG TAB PO PRN (15:53)
[2022-08-24] MEDS ORDERED: DEXTROSE 50% SYRINGE 50 ML IVP PRN ×2 (15:57)
[2022-08-24 16:49] LABS: Glucose,Whole Blood 313 mg/dL (70-110)
[2022-08-24] MEDS ORDERED: VANCOMYCIN 750 MG in SODIUM CHLORIDE 0.9% 250 ML IVPB ONE (17:00)
--- NOTE | 2022-08-24 17:00 | HP ---
HISTORY AND PHYSICAL CHIEF COMPLAINT: Fever, hypotension, and change in mental status. HISTORY OF PRESENT ILLNESS: This is a 72-year-old gentleman with a past medical history of multiple UTIs, history of indwelling Altman catheter, diabetes mellitus type 2, and multiple medical issues, who is a [facility]. Apparently, the patient was taken to [facility] with hypotension, and the patient was transferred. UTI was suspected, and the patient was admitted for further evaluation and treatment. Troponin was elevated up to 0.064. The patient is mildly confused. There is no history of any rigors or chills at this time. PAST MEDICAL HISTORY: History of COPD, diabetes mellitus, and DVT. Rest of the history and rest of the chart are also reviewed. HOME MEDICATIONS: Reviewed include Glucophage. Doses and rest of the medications are reviewed. ALLERGIES: Reviewed include Lodine. FAMILY HISTORY: History of lung cancer. SOCIAL HISTORY: No history of smoking. No history of alcohol intake. REVIEW OF SYSTEMS: Fourteen-point review is negative except as mentioned earlier. PHYSICAL EXAMINATION: VITAL SIGNS: Pulse 64, blood pressure 119/60, respirations 18. HEENT: Conjunctivae are normal. Mucosa dry. NECK: No jugular venous distention. No carotid bruit. No lymph node enlargement. CARDIOVASCULAR: S1 and S2 muffled. RESPIRATORY: Breath sounds diminished at the bases. ABDOMEN: Soft, obese, and nontender. No mass palpable. LEGS: No edema. NERVOUS SYSTEM: Diffusely weak. SKIN: No ulcer, rash, or bleeding. JOINTS: No active deforming arthropathy. LABORATORY DATA: Reviewed. ASSESSMENT: 1. Acute urinary tract infection with possible sepsis present on admission. 2. Hypotension with possible septic shock. 3. Elevated troponin, 0.064. Rule out acute [id number] myocardial infarction. 4. Diabetes mellitus, type 2. 5. History of deep venous thrombosis. 6. History of pulmonary embolism. 7. History of sleep apnea. RECOMMENDATIONS AND DISCUSSION: In this 72-year-old gentleman, who presented with multiple complex medical issues, we will monitor the patient closely. I will initiate broad-spectrum IV antibiotics. Obtain the cultures. Infectious Disease evaluation. Resume the home medications once they are corrected. Otherwise, I would follow the patient closely. See orders for details. Prognosis is guarded. Further recommendations to follow. MMODL / IJN: [id number] /
[2022-08-24] MEDS: GABAPENTIN 300 MG CAP PO SCH ×2 (18:26→21:49)
[2022-08-24] MEDS: carBAMazepine 200 MG TAB PO SCH ×2 (18:26→21:49)
[2022-08-24] MEDS: carvediloL 3.125 MG TAB PO SCH (18:26)
[2022-08-24] MEDS: ZIPRASIDONE 20 MG CAP PO SCH ×2 (18:27→23:27)
[2022-08-24] MEDS: INSULIN ASPART (NovoLOG) 100 UNIT/ML VIAL SQ SCH ×2 (18:27→21:50)
[2022-08-24] MEDS: MAG HYDROX/AL HYDROX/SIMETH 30 ML CUP PO SCH (18:28)
[2022-08-24] MEDS ORDERED: NYSTATIN 100,000 UNIT/GM POWD 15 GM TOPICAL PRN (18:29)
[2022-08-24] MEDS: SODIUM CHLORIDE 0.9% 1,000 ML IV SCH (20:14)
[2022-08-24 20:26] LABS: Glucose,Whole Blood 240 mg/dL (70-110)
[2022-08-24] MEDS: ALPRAZolam 0.5 MG TAB PO SCH (21:49)
[2022-08-24] MEDS: ATORVASTATIN 40 MG TAB PO SCH (21:49)
[2022-08-24] MEDS: TAMSULOSIN 0.4 MG CAP.ER.24H PO SCH (21:49)
[2022-08-24] MEDS: allopurinoL 100 MG TAB PO SCH (21:49)
[2022-08-24] MEDS: LEVOTHYROXINE 50 MCG TAB PO SCH (21:50)
[2022-08-25 06:14] LABS: Calcium 7.9 mg/dL (8.4-10.2); Potassium 4.9 mmol/L (3.5-5.1)
[2022-08-25 06:17] LABS: Glucose,Whole Blood 199 mg/dL (70-110)
[2022-08-25] MEDS: MAG HYDROX/AL HYDROX/SIMETH 30 ML CUP PO SCH ×3 (06:42→16:45)
[2022-08-25] MEDS: INSULIN ASPART (NovoLOG) 100 UNIT/ML VIAL SQ SCH ×5 (06:42→20:54)
[2022-08-25] MEDS: INSULIN DETEMIR (LEVEMIR) 100 UNIT/ML SYR SQ SCH (06:42)
[2022-08-25] MEDS: carvediloL 3.125 MG TAB PO SCH ×2 (06:42→16:45)
[2022-08-25] MEDS: SODIUM CHLORIDE 0.9% 1,000 ML IV SCH ×2 (06:43→20:53)
[2022-08-25] MEDS: SYMBICORT 80-4.5 MCG INHALER INHALATION SCH ×2 (08:18→21:12)
[2022-08-25 09:06] VITALS: RESP 18
[2022-08-25] MEDS: ZIPRASIDONE 20 MG CAP PO SCH ×3 (09:07→22:26)
[2022-08-25] MEDS: GABAPENTIN 300 MG CAP PO SCH ×3 (09:07→20:52)
[2022-08-25] MEDS: buPROPion XL 300 MG TAB.ER.24H PO SCH (09:07)
[2022-08-25] MEDS: SERTRALINE 100 MG TAB PO SCH (09:07)
[2022-08-25] MEDS: LORATADINE 10 MG TAB PO SCH (09:07)
[2022-08-25] MEDS: FINASTERIDE 5 MG TAB PO SCH (09:07)
[2022-08-25] MEDS: SENNOSIDES-DOCUSATE SODIUM 1 EACH TAB PO SCH (09:07)
[2022-08-25] MEDS: ACETAMINOPHEN TAB 325 MG TAB PO PRN (09:08)
[2022-08-25] MEDS: allopurinoL 100 MG TAB PO SCH ×2 (09:08→20:53)
[2022-08-25] MEDS: CLOPIDOGREL 75 MG TAB PO SCH (09:08)
[2022-08-25] MEDS: carBAMazepine 200 MG TAB PO SCH ×3 (09:08→20:53)
[2022-08-25] MEDS: PANTOPRAZOLE 40 MG TABLET PO SCH (09:08)
[2022-08-25] MEDS: ALPRAZolam 0.25 MG TAB PO SCH (09:08)
[2022-08-25] MEDS: lisinopriL 20 MG TAB PO SCH (09:08)
[2022-08-25] MEDS: DAPAGLIFLOZIN PROPANEDIOL 10 MG TABLET PO SCH (09:08)
[2022-08-25] MEDS: PSYLLIUM HUSK 100% 6 GM PACKET PO SCH (09:09)
[2022-08-25 11:39] LABS: Glucose,Whole Blood 185 mg/dL (70-110)
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
[2022-08-25] MEDS ORDERED: VANCOMYCIN 1,750 MG in SODIUM CHLORIDE 0.9% 500 ML 500 ML IVPB SCH (12:00)
--- NOTE | 2022-08-25 15:34 | PN ---
PROGRESS NOTE DATE OF SERVICE: 08/25/2022 SUBJECTIVE: This is a 72-year-old gentleman, who was admitted with acute UTI and possible sepsis, also had hypotension. The patient was noted to have elevated troponin. Cardiology is following the patient closely. PAST MEDICAL HISTORY: Reviewed. REVIEW OF SYSTEMS: A 14-point review of systems is negative except as mentioned above. CURRENT MEDICATIONS: Reviewed, include: 1. Xanax. 2. Zyloprim. Doses and rest of the medications noted. PHYSICAL EXAMINATION: VITAL SIGNS: Pulse is 66, blood pressure ntd respirations 18. CHEST: Clear to auscultation. CARDIOVASCULAR: S1. S2. ABDOMEN: Soft. NERVOUS SYSTEM: Diffusely weak. LABORATORY DATA: Reviewed. ASSESSMENT: 1. Acute urinary tract infection with possible sepsis, present on admission. 2. Hypotension with possible septic shock and severe sepsis. 3. Troponin elevated at 0.064, rule out acute [id number]-elevation myocardial infarction. 4. Diabetes mellitus type 2. 5. History of deep vein thrombosis. 6. History of pulmonary embolism. 7. History of sleep apnea. RECOMMENDATIONS: Recommend to continue current medical management and symptomatic treatment. Otherwise, at this time, I would also await cultures. Closely monitor. I would also recommend D- dimer, and if it is positive, the patient might require a V/Q scan. Other than that, repeat labs will be ordered. See orders for further details. Further recommendations to follow. Follow closely with Cardiology. JENELLE / DONALDON: [id number] / MTDD
[2022-08-25 16:18] LABS: Glucose,Whole Blood 142 mg/dL (70-110)
[2022-08-25 20:10] LABS: Glucose,Whole Blood 184 mg/dL (70-110)
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
[2022-08-25] MEDS: ALPRAZolam 0.5 MG TAB PO SCH (20:52)
[2022-08-25] MEDS: ATORVASTATIN 40 MG TAB PO SCH (20:52)
[2022-08-25] MEDS: LEVOTHYROXINE 50 MCG TAB PO SCH (20:52)
[2022-08-25] MEDS: TAMSULOSIN 0.4 MG CAP.ER.24H PO SCH (20:53)
[2022-08-25] MEDS: ARTIFICIAL TEARS-HYPROMELLOSE DROPS 15 ML BTL BOTH EYES PRN (20:58)
[2022-08-25] MEDS: CEFEPIME 2 GM in SODIUM CHLORIDE 0.9% 100 ML IVPB SCH (23:03)
[2022-08-26 05:54] LABS: Glucose,Whole Blood 170 mg/dL (70-110)
[2022-08-26] MEDS: carvediloL 3.125 MG TAB PO SCH ×2 (06:05→17:01)
[2022-08-26] MEDS: ACETAMINOPHEN TAB 325 MG TAB PO PRN ×2 (06:05→18:48)
[2022-08-26] MEDS: INSULIN DETEMIR (LEVEMIR) 100 UNIT/ML SYR SQ SCH (06:05)
[2022-08-26] MEDS: INSULIN ASPART (NovoLOG) 100 UNIT/ML VIAL SQ SCH ×5 (06:06→21:08)
[2022-08-26] MEDS: SODIUM CHLORIDE 0.9% 1,000 ML IV SCH ×2 (06:06→21:08)
[2022-08-26] MEDS: MAG HYDROX/AL HYDROX/SIMETH 30 ML CUP PO SCH ×3 (06:06→17:03)
[2022-08-26] MEDS: SYMBICORT 80-4.5 MCG INHALER INHALATION SCH ×2 (07:46→21:53)
[2022-08-26 07:47] LABS: Anisocytosis Slight; HCT 32.5 % (39.0-53.0); HGB 10.4 gm/dL (13.0-17.5); MCV 93.5 fL (80.0-100.0); Mean Platelet Volume 7.9; Platelet Count 110 k/uL (150-450); RBC 3.48 m/uL (4.30-5.90); RDW 16.1 % (11.5-15.5); WBC 4.2 k/uL (3.8-10.6)
--- NOTE | 2022-08-26 08:05 | US ---
EXAMINATION TYPE: US kidneys/renal and bladder DATE OF EXAM: 08/26/2022 COMPARISON: 01/08/2021 CLINICAL INDICATION: Male, 72 years old with history of uti and bacteremia; UTI EXAM MEASUREMENTS: The right and left kidneys measure 12.3 and 12.4 cm, respectively. Right Kidney: There are a few scattered benign cortical cysts, largest at the mid to lower pole measu ring 7.4 x 6.4 x 7.4 cm. No hydronephrosis. Left Kidney: Benign cortical cyst at the midpole measuring 3.6 x 2.7 x 3.0 cm. No hydronephrosis. Bladder: Limited assessment of the bladder as the patient has a cath in place Manager Ct notes:Similar findings to prior IMPRESSION: A few scattered benign renal cortical cysts on both sides. Largest measuring up to 7.4 cm on the righ t. No hydronephrosis.
[2022-08-26 08:16] LABS: Calcium 8.2 mg/dL (8.4-10.2); Potassium 4.7 mmol/L (3.5-5.1)
[2022-08-26] MEDS: CEFEPIME 2 GM in SODIUM CHLORIDE 0.9% 100 ML IVPB SCH ×3 (09:25→23:12)
[2022-08-26] MEDS: lisinopriL 20 MG TAB PO SCH (09:26)
[2022-08-26] MEDS: allopurinoL 100 MG TAB PO SCH ×2 (09:26→21:07)
[2022-08-26] MEDS: carBAMazepine 200 MG TAB PO SCH ×3 (09:26→21:08)
[2022-08-26] MEDS: GABAPENTIN 300 MG CAP PO SCH ×3 (09:26→21:08)
[2022-08-26] MEDS: FINASTERIDE 5 MG TAB PO SCH (09:26)
[2022-08-26] MEDS: PANTOPRAZOLE 40 MG TABLET PO SCH (09:26)
[2022-08-26] MEDS: LORATADINE 10 MG TAB PO SCH (09:26)
[2022-08-26] MEDS: SENNOSIDES-DOCUSATE SODIUM 1 EACH TAB PO SCH (09:26)
[2022-08-26] MEDS: DAPAGLIFLOZIN PROPANEDIOL 10 MG TABLET PO SCH (09:26)
[2022-08-26] MEDS: buPROPion XL 300 MG TAB.ER.24H PO SCH (09:26)
[2022-08-26] MEDS: CLOPIDOGREL 75 MG TAB PO SCH (09:26)
[2022-08-26] MEDS: ZIPRASIDONE 20 MG CAP PO SCH ×3 (09:27→21:57)
[2022-08-26] MEDS: SERTRALINE 100 MG TAB PO SCH (09:27)
[2022-08-26] MEDS: ALPRAZolam 0.25 MG TAB PO SCH (09:27)
[2022-08-26] MEDS: PSYLLIUM HUSK 100% 6 GM PACKET PO SCH (09:30)
--- NOTE | 2022-08-26 11:09 | P.PN ---
Subjective Progress Note Date: 08/26/22 Principal diagnosis: Catheter associated UTI and bacteremia Patient is a 72-year-old male with a past medical history significant for CVA TIA diabetes mellitus DVT COPD hypertension prostate disorder was sent to the [facility] from the local [facility] as the patient was not acting right and did have a fever , patient has been diagnosed with a catheter associated UTI transferred to [facility] blood cultures came back positive subsequently with gram-negative bacilli On today's evaluation had that is 08/26/2022, the patient denies having any fever or any chills, his breathing comfortably on 2 L nasal cannula oxygen, denies any chest pain shortness of breath or cough no nausea no vomiting no abdominal pain or diarrhea Objective - Vital Signs Vital signs: Vital Signs Temp 97.6 F 08/26/22 09:20 Pulse 62 08/26/22 09:20 Resp 18 08/26/22 09:20 BP 118/66 08/26/22 09:20 Pulse Ox 96 08/26/22 09:20 FiO2 Intake & Output 08/25/22 08/26/22 08/26/22 18:59 06:59 18:59 Intake Total 330 240 Output Total 2525 2825 Balance -2195 -2825 240 Intake: Oral 330 240 Output: Urine 2525 2825 Other: Voiding Method Indwelling Catheter Indwelling Catheter # Bowel Movements 1 - Exam GENERAL DESCRIPTION: An elderly male lying in bed in no distress RESPIRATORY SYSTEM: Unlabored breathing , decreased breath sounds at bases HEART: S1 S2 regular rate and rhythm , ABDOMEN: Soft , no tenderness EXTREMITIES: No edema feet - Labs CBC & Chem 7: 08/26/22 07:11 08/26/22 07:11 Labs: Abnormal Lab Results - Last 24 Hours (Table) 08/25/22 08/25/22 08/25/22 Range/Units 05:41 11:38 16:16 RBC (4.30-5.90) m/uL Hgb (13.0-17.5) gm/dL Hct (39.0-53.0) % RDW (11.5-15.5) % Plt Count (150-450) k/uL Carbon Dioxide (22-30) mmol/L BUN (9-20) mg/dL Glucose (74-99) mg/dL POC Glucose (mg/dL) 185 H 142 H (70-110) mg/dL Hemoglobin A1c 8.4 H (0.0-6.0) % Calcium (8.4-10.2) mg/dL 08/25/22 08/26/22 08/26/22 Range/Units 20:08 05:50 07:11 RBC (4.30-5.90) m/uL Hgb (13.0-17.5) gm/dL Hct (39.0-53.0) % RDW (11.5-15.5) % Plt Count (150-450) k/uL Carbon Dioxide 31 H (22-30) mmol/L BUN 22 H (9-20) mg/dL Glucose 157 H (74-99) mg/dL POC Glucose (mg/dL) 184 H 170 H (70-110) mg/dL Hemoglobin A1c (0.0-6.0) % Calcium 8.2 L (8.4-10.2) mg/dL 08/26/22 Range/Units 07:11 RBC 3.48 L (4.30-5.90) m/uL Hgb 10.4 L (13.0-17.5) gm/dL Hct 32.5 L (39.0-53.0) % RDW 16.1 H (11.5-15.5) % Plt Count 110 L (150-450) k/uL Carbon Dioxide (22-30) mmol/L BUN (9-20) mg/dL Glucose (74-99) mg/dL POC Glucose (mg/dL) (70-110) mg/dL Hemoglobin A1c (0.0-6.0) % Calcium (8.4-10.2) mg/dL Microbiology - Last 24 Hours (Table) 08/24/22 13:06 Urine Culture - Preliminary Urine,Voided Gram Neg Bacilli Assessment and Plan (1) Bacteremia Current Visit: Yes Status: Acute Code(s): R78.81 - BACTEREMIA SNOMED Code(s): 3120521 (2) Catheter-associated urinary tract infection Current Visit: No Status: Acute Code(s): T83.511A - I/I REACT D/T INDWELLING URETHRAL CATHETER, INIT; N39.0 - URINARY TRACT INFECTION, SITE NOT SPECIFIED SNOMED Code(s): 421157913 Plan: 1patient present to hospital with mental status changes seen this patient with a fever and did have evidence of gram-negative bacteremia source likely complicated/catheter associated urinary tract infection and will need to rule out deeper infection 2Patient did have ultrasound of the kidney and bladder area, with cyst and no hydronephrosis 3Patient to continue with cefepime while waiting for the ID sensitivity of this gram-negative
[2022-08-26 11:37] LABS: Glucose,Whole Blood 196 mg/dL (70-110)
[2022-08-26 13:22] VITALS: BMI 30.7
--- NOTE | 2022-08-26 14:08 | P.PN ---
Subjective Progress Note Date: 08/26/22 History of Present Illness: The patient is a 72 old male with a history of hyperlipidemia, diabetes, hyper tension who was transferred because of urine tract infection and mild troponin elevation. He is followed by Dr. Interiano. He carries the diagnosis of a mild myocardial infarction according to him but no intervention. He has a history of murmur. He is limited in his physical activity. He denies any significant dyspnea or chest discomfort. He has no peripheral edema, dizziness or syncope. He is a nonsmoker. He lives in an adult foster group home. His troponin is mildly elevated and flat, not consistent with an acute myocardial infarction. He has an indwelling Altman catheter and being evaluated to undergo prostate surgery. He was hypotensive initially related to his infectious process. Medications: Plavix, Lipitor 40 mg daily, Xanax, insulin, Jardiance, Coreg 3.25 mg twice a day, Prinivil 20 mg daily, Glucophage 08/26 patient is seen today in follow-up. Noted the patient has been receiving his SAM inhibitor and renal function is improving today. Will plan to continue ACEI as scheduled. echocardiogram obtained this morning and report is pending. Physical Examination: 72-year-old male, alert no apparent distress ,Blood pressure 119/62, Heart rate 59 Head: Normocephalic. Eyes: Sclerae nonicteric. Neck: Good carotid upstroke, no bruit, no jugular venous distention. Lungs: Clear to auscultation. Heart: Regular rate and rhythm, S1-S2, no S3, no rub. shortSystolic ejection murmur, 3/6. Abdomen: Soft nontender, positive bowel sounds no organomegaly. Extremities: No edema, intact distal pulses. Impression: 1. UTI with indwelling Altman catheter 2. Mild troponin elevation, no pattern of acute ischemic event, likely type II event 3. History of hypertension 4. History of hyperlipidemia 5. Diabetes 6. Abnormal renal function Plan: Obtain an echocardiogram with Doppler--report pending Follow renal functions Continue telemetry Depending on the results of the testing further recommendations will be made, thank you for this consult we will follow with you. Nurse practitioner note has been reviewed, I agree with the documented findings and plan of care. Patient was seen and examined. Objective - Vital Signs Vital signs: Vital Signs Temp 98.1 F 08/26/22 03:31 Pulse 60 08/26/22 03:31 Resp 18 08/26/22 03:31 BP 145/75 08/26/22 03:31 Pulse Ox 96 08/26/22 07:46 FiO2 Intake & Output 08/25/22 08/26/22 08/26/22 18:59 06:59 18:59 Intake Total 330 240 Output Total 2525 2825 Balance -2195 -2829 240 Intake: Oral 330 240 Output: Urine 5705 2823 Other: Voiding Method Indwelling Catheter Indwelling Catheter # Bowel Movements 1 - Labs CBC & Chem 7: 08/26/22 07:11 08/26/22 07:11 Labs: Abnormal Lab Results - Last 24 Hours (Table) 08/25/22 08/25/22 08/25/22 Range/Units 05:41 11:38 16:16 RBC (4.30-5.90) m/uL Hgb (13.0-17.5) gm/dL Hct (39.0-53.0) % RDW (11.5-15.5) % Plt Count (150-450) k/uL Carbon Dioxide (22-30) mmol/L BUN (9-20) mg/dL Glucose (74-99) mg/dL POC Glucose (mg/dL) 185 H 142 H (70-110) mg/dL Hemoglobin A1c 8.4 H (0.0-6.0) % Calcium (8.4-10.2) mg/dL 08/25/22 08/26/22 08/26/22 Range/Units 20:08 05:50 07:11 RBC (4.30-5.90) m/uL Hgb (13.0-17.5) gm/dL Hct (39.0-53.0) % RDW (11.5-15.5) % Plt Count (150-450) k/uL Carbon Dioxide 31 H (22-30) mmol/L BUN 22 H (9-20) mg/dL Glucose 157 H (74-99) mg/dL POC Glucose (mg/dL) 184 H 170 H (70-110) mg/dL Hemoglobin A1c (0.0-6.0) % Calcium 8.2 L (8.4-10.2) mg/dL 08/26/22 Range/Units 07:11 RBC 3.48 L (4.30-5.90) m/uL Hgb 10.4 L (13.0-17.5) gm/dL Hct 32.5 L (39.0-53.0) % RDW 16.1 H (11.5-15.5) % Plt Count 110 L (150-450) k/uL Carbon Dioxide (22-30) mmol/L BUN (9-20) mg/dL Glucose (74-99) mg/dL POC Glucose (mg/dL) (70-110) mg/dL Hemoglobin A1c (0.0-6.0) % Calcium (8.4-10.2) mg/dL Microbiology - Last 24 Hours (Table) 08/24/22 13:06 Urine Culture - Preliminary Urine,Voided Gram Neg Bacilli
[2022-08-26 16:18] LABS: Glucose,Whole Blood 321 mg/dL (70-110)
[2022-08-26] MEDS: ARTIFICIAL TEARS-HYPROMELLOSE DROPS 15 ML BTL BOTH EYES PRN (18:48)
[2022-08-26 20:22] LABS: Glucose,Whole Blood 248 mg/dL (70-110)
[2022-08-26] MEDS: ALPRAZolam 0.5 MG TAB PO SCH (21:07)
[2022-08-26] MEDS: LEVOTHYROXINE 50 MCG TAB PO SCH (21:08)
[2022-08-26] MEDS: TAMSULOSIN 0.4 MG CAP.ER.24H PO SCH (21:08)
[2022-08-26] MEDS: ATORVASTATIN 40 MG TAB PO SCH (21:08)
[2022-08-27 05:35] LABS: Glucose,Whole Blood 221 mg/dL (70-110)
[2022-08-27] MEDS: INSULIN ASPART (NovoLOG) 100 UNIT/ML VIAL SQ SCH ×3 (05:39→12:21)
[2022-08-27] MEDS: carvediloL 3.125 MG TAB PO SCH (05:39)
[2022-08-27] MEDS: MAG HYDROX/AL HYDROX/SIMETH 30 ML CUP PO SCH ×2 (05:39→12:21)
[2022-08-27] MEDS: INSULIN DETEMIR (LEVEMIR) 100 UNIT/ML SYR SQ SCH (06:39)
[2022-08-27 06:50] LABS: Glucose,Whole Blood 272 mg/dL (70-110)
[2022-08-27] MEDS: SYMBICORT 80-4.5 MCG INHALER INHALATION SCH (07:47)
--- NOTE | 2022-08-27 08:28 | PN ---
PROGRESS NOTE DATE OF SERVICE: 08/26/2022 SUBJECTIVE: This is a 72-year-old gentleman who was admitted with acute UTI with possible sepsis. He is also having gram-negative bacilli from the culture. The patient is on empiric antibiotics. No chest pain, no palpitation. OBJECTIVE: VITAL SIGNS: Pulse is 62, blood pressure 118/60, respirations 18. CHEST: Clear to auscultation. CARDIOVASCULAR: S1, S2 muffled. ABDOMEN: Soft, obese. LABORATORY DATA: Reviewed. ASSESSMENT: 1. Acute urinary tract infection with possible sepsis with gram-negative bacilli present on admission. 2. Hypotension with possible septic shock and severe sepsis present on admission. 3. Troponin elevated up to 0.064, indeterminate. 4. Diabetes type 2. 5. History of DVT. 6. History of pulmonary embolism. 7. History of sleep apnea. RECOMMENDATIONS AND DISCUSSION: Recommended to continue current medications and continue the broad-spectrum IV antibiotics. Monitor blood pressure closely. Prognosis guarded. Closely follow with multiple consultants. Further recommendations to follow. Await final ID of the organism. MMODL / IJN: [id number] /
[2022-08-27 08:52] VITALS: TEMP 97.9
[2022-08-27] MEDS: GABAPENTIN 300 MG CAP PO SCH (08:53)
[2022-08-27] MEDS: CEFEPIME 2 GM in SODIUM CHLORIDE 0.9% 100 ML IVPB SCH (08:53)
[2022-08-27] MEDS: carBAMazepine 200 MG TAB PO SCH (08:53)
[2022-08-27] MEDS: CLOPIDOGREL 75 MG TAB PO SCH (08:53)
[2022-08-27] MEDS: ALPRAZolam 0.25 MG TAB PO SCH (08:53)
[2022-08-27] MEDS: lisinopriL 20 MG TAB PO SCH (08:53)
[2022-08-27] MEDS: DAPAGLIFLOZIN PROPANEDIOL 10 MG TABLET PO SCH (08:53)
[2022-08-27] MEDS: SENNOSIDES-DOCUSATE SODIUM 1 EACH TAB PO SCH (08:54)
[2022-08-27] MEDS: SERTRALINE 100 MG TAB PO SCH (08:54)
[2022-08-27] MEDS: LORATADINE 10 MG TAB PO SCH (08:54)
[2022-08-27] MEDS: buPROPion XL 300 MG TAB.ER.24H PO SCH (08:54)
[2022-08-27] MEDS: ZIPRASIDONE 20 MG CAP PO SCH (08:54)
[2022-08-27] MEDS: allopurinoL 100 MG TAB PO SCH (08:54)
[2022-08-27] MEDS: PANTOPRAZOLE 40 MG TABLET PO SCH (08:54)
[2022-08-27] MEDS: PSYLLIUM HUSK 100% 6 GM PACKET PO SCH (08:54)
[2022-08-27] MEDS: FINASTERIDE 5 MG TAB PO SCH (08:54)
--- NOTE | 2022-08-27 10:50 | CA ---
Transthoracic Echo Report Name: Jarrell Díaz Age: 72 Gender: M : 1950 Exam Date: 08/26/2022 08:26 Exam Location: [place] [facility] Ht (in): 71 Wt (lb): 220 Ordering Physician: Kassie Das MD Attending/Referring Phys: Building Rental Manager Dagoberto Beth RDCS Procedure CPT: Indications: chf Cardiac Hx: HTN; Obesity Technical Quality: Technically difficult study Contrast 1: Lumason Total Dose (mL): 6 Contrast 2: Total Dose (mL): MEASUREMENTS (Male / Female) Normal Values 2D ECHO LV Diastolic Diameter PLAX 4.4 cm 4.2 - 5.9 / 3.9 - 5.3 cm LV Systolic Diameter PLAX 2.6 cm LV Fractional Shortening PLAX 42.0 % IVS Diastolic Thickness 1.3 cm 0.6 - 1.0 / 0.6 - 0.9 cm IVS Systolic Thickness 2.3 cm LVPW Diastolic Thickness 1.1 cm 0.6 - 1.0 / 0.6 - 0.9 cm LVPW Systolic Thickness 2.0 cm LV Relative Wall Thickness 0.6 RV Internal Dim ED PLAX 3.1 cm LVOT Diameter 1.9 cm LA Systolic Diameter LX 4.3 cm 3.0 - 4.0 / 2.7 - 3.8 cm LV Diastolic Volume MOD BP 94.8 cm??? 67 - 155 / 56 - 104 cm??? LV Systolic Volume MOD BP 32.0 cm??? 22 - 58 / 19 - 49 cm??? LV Ejection Fraction MOD BP 66.3 % >= 55 % LV Stroke Volume MOD BP 62.9 cm??? LV Diastolic Volume MOD 4C 90.8 cm??? LV Systolic Volume MOD 4C 29.7 cm??? LV Ejection Fraction MOD 4C 67.3 % LV Stroke Volume MOD 4C 61.1 cm??? LV Diastolic Length 4C 9.0 cm LV Systolic Length 4C 7.7 cm LV Diastolic Volume MOD 2C 99.4 cm??? LV Systolic Volume MOD 2C 36.9 cm??? LV Ejection Fraction MOD 2C 62.9 % LV Stroke Volume MOD 2C 62.5 cm??? LV Diastolic Length 2C 9.0 cm LV Systolic Length 2C 7.7 cm Ascending Aorta Diameter 3.4 cm M-MODE Aortic Root Diameter MM 3.7 cm LA Systolic Diameter MM 6.6 cm LA Ao Ratio MM 1.8 MV E Point Septal Separation 0.8 cm AV Cusp Separation MM 0.9 cm DOPPLER AV Peak Velocity 273.7 cm/s AV Peak Gradient 30.0 mmHg AV Mean Velocity 210.9 cm/s AV Mean Gradient 19.4 mmHg AV Velocity Time Integral 70.1 cm LVOT Peak Velocity 86.2 cm/s LVOT Peak Gradient 3.0 mmHg AV Area Cont Eq pk 0.9 cm??? MV Deceleration [place] 353.6 cm/s??? MR Peak Velocity 143.9 cm/s MR Peak Gradient 8.3 mmHg Mitral E Point Velocity 64.1 cm/s Mitral A Point Velocity 93.3 cm/s Mitral E to A Ratio 0.7 MV Deceleration Time 181.4 ms MV E' Velocity 4.1 cm/s Mitral E to MV E' Ratio 15.6 TR Peak Velocity 169.8 cm/s TR Peak Gradient 11.5 mmHg Right Ventricular Systolic Press 21.5 mmHg FINDINGS Left Ventricle Left ventricular ejection fraction is estimated at 55 %. Moderate concentric left ventricular hypertrophy. Grade 1 diastolic dysfunction. Normal basal systolic function. Right Ventricle Normal right ventricular size and function. RVSP- 22 Hg. Right Atrium Normal right atrial size. Left Atrium Mild left atrial dilatation. Mitral Valve Mitral valve thickened. No mitral stenosis. Trace to mild mitral regurgitation. Aortic Valve Trileaflet aortic valve. Diffuse thickening of the aortic valve cusps with reduced excursion. Moderate aortic stenosis with a peak gradient of 30 mmHg and a mean gradient of 19.4 mmHg. Tricuspid Valve Mild tricuspid regurgitation. Pulmonic Valve Pulmonic valve not well visualized. Pericardium Normal pericardium. No pericardial effusion. Aorta Normal aortic size CONCLUSIONS Left ventricular ejection fraction 55% Moderate increased left ventricular wall thickness Moderate aortic stenosis Mild tricuspid regurgitation No pericardial effusion Previewed by: Dr. Beto Taylor DO (Electronically Signed) Final Date: 27 Aug 2022 10:49
[2022-08-27 11:32] LABS: Glucose,Whole Blood 182 mg/dL (70-110)
--- NOTE | 2022-08-27 12:09 | P.PN ---
Subjective Progress Note Date: 08/27/22 Principal diagnosis: Catheter associated UTI and bacteremia Patient is a 72-year-old male with a past medical history significant for CVA TIA diabetes mellitus DVT COPD hypertension prostate disorder was sent to the [facility] from the local alf as the patient was not acting right and did have a fever , patient has been diagnosed with a catheter associated UTI transferred to [facility] blood cultures came back positive subsequently with gram-negative bacilli On today's evaluation had that is 08/27/2022, the patient remains to be afebrile, the patient is breathing comfortably on 2 L nasal cannula oxygen, the patient denies any chest pain shortness of breath or cough no nausea no vomiting no abdominal pain or diarrhea, feeling better wants to go home Objective - Vital Signs Vital signs: Vital Signs Temp 97.9 F 08/27/22 08:00 Pulse 62 08/27/22 08:00 Resp 18 08/27/22 08:00 BP 124/58 08/27/22 08:00 Pulse Ox 92 L 08/27/22 08:00 FiO2 Intake & Output 08/26/22 08/27/22 08/27/22 18:59 06:59 18:59 Intake Total 240 355 Output Total 2555 2200 1000 Balance -1970 -2200 -5 Weight 99.79 kg Intake: Oral 240 355 Output: Urine 2555 2200 1000 Other: Voiding Method Indwelling Catheter Indwelling Catheter - Exam GENERAL DESCRIPTION: An elderly male lying in bed in no distress RESPIRATORY SYSTEM: Unlabored breathing , decreased breath sounds at bases HEART: S1 S2 regular rate and rhythm , ABDOMEN: Soft , no tenderness EXTREMITIES: No edema feet - Labs CBC & Chem 7: 08/26/22 07:11 08/27/22 08:57 Labs: Abnormal Lab Results - Last 24 Hours (Table) 08/26/22 08/26/22 08/26/22 Range/Units 11:35 16:16 20:20 POC Glucose (mg/dL) 196 H 321 H 248 H (70-110) mg/dL 08/27/22 08/27/22 Range/Units 05:34 06:47 POC Glucose (mg/dL) 221 H 272 H (70-110) mg/dL Microbiology - Last 24 Hours (Table) 08/24/22 13:06 Urine Culture - Final Urine,Voided Escherichia coli Enterobacter aerogenes Assessment and Plan (1) Bacteremia Current Visit: Yes Status: Acute Code(s): R78.81 - BACTEREMIA SNOMED Code(s): 9471416 (2) Catheter-associated urinary tract infection Current Visit: No Status: Acute Code(s): T83.511A - I/I REACT D/T INDWELLING URETHRAL CATHETER, INIT; N39.0 - URINARY TRACT INFECTION, SITE NOT SPECIFIED SNOMED Code(s): 224724838 Plan: 1patient present to hospital with mental status changes seen this patient with a fever and did have evidence of gram-negative bacteremia source likely complicated/catheter associated urinary tract infection and will need to rule out deeper infection 2Patient did have ultrasound of the kidney and bladder area, with cyst and no hydronephrosis 3-urine culture he has been finalized with E. coli and Enterobacter, both of them are sensitive to Rocephin and debridement of the sutures Rocephin 2 g daily which can continue with midline for 10 days on discharge, discussed with the admitting team Time with Patient: Less than 30
[2022-08-27 14:05] VITALS: BP 117/62; PULSE 65
--- NOTE | 2022-08-27 14:11 | P.DS ---
Providers Date of admission: 08/24/22 14:14 Expected date of discharge: 08/27/22 Attending physician: Kassie Das Consults: 08/24/22 15:56 Consult Physician Routine Consulting Provider: Chiki Blake Consult Reason/Comments: sepsis Do you want consulting provider notified?: Yes 08/25/22 09:20 Consult Physician Routine Consulting Provider: Lore Gillette Consult Reason/Comments: HIGH TROPS Do you want consulting provider notified?: Yes Primary care physician: Lori Schultz Hospital Course: Final diagnosis Acute urinary tract infection with sepsis, present on admission with cultures growing E. coli and Enterobacter aerogenes Hypotension with possible septic shock with severe sepsis, present on admission likely secondary to above Troponin elevation of 0.064, indeterminate Diabetes mellitus, type II, insulin-dependent uncontrolled with hypoglycemia History of DVT History of pulmonary embolism History of sleep apnea uses a CPAP as well as nasal cannula at 3 L Chronic hypoxic respiratory failure secondary to COPD History of bipolar depression Obesity with a BMI of 30.7 History of CVA/TIA History of COPD, not in exacerbation GERD Discharge disposition Patient is being discharged in a stable condition with guarded prognosis to [facility]. Patient will follow-up with Lori BREWER in the outpatient setting upon discharge. Patient is to continue with IV ceftriaxone 2 g daily for the next 10 days. Total time taken is greater than 35 minutes. Hospital course This is a 72-year-old male who was recently admitted with acute urinary tract infection with sepsis, present on admission. Patient's urine cultures finalized showing E. coli with Enterobacter aerogenes with some resistance maintained on IV antibiotics with infectious disease following. Patient did have some blood cultures that were showing gram-negative rods up at [place] that have not finalized as of yet and awaiting finalized cultures. Discussed with [place] lab today. Patient blood cultures here showing no growth and will go on IV ceftriaxone 2 g daily for the next 10 days and is receiving a midline today. Patient anxious to return and would like to go today. Please refer to other consultation notes for further HPI. Patient to follow-up with cardiology outpatient. Currently no reports of chest pain, shortness of breath, or palpitations. Patient is afebrile. No reports of nausea or vomiting and patient is tolerating diet. Patient will be going to [facility] today. Guarded prognosis Physical exam: Gen: This is a 72-year-old male who is awake, alert and oriented 3, well- developed, well-nourished, obese HEENT: Head is atraumatic, normocephalic. Pupils equal, round. Sclerae is anicteric. NECK: Supple. No JVD. No lymphadenopathy. No thyromegaly. LUNGS: Diminished breath sounds bilaterally with no wheezing, some scattered rhonchi. No intercostal retractions. HEART: S1, S2 are muffled ABDOMEN: Soft. Obese. Bowel sounds are present. No masses. No tenderness. EXTREMITIES: No pedal edema. No calf tenderness. NEUROLOGICAL: Patient is awake, alert and oriented x3. Cranial nerves 2 through 12 are grossly intact. Diffusely weak Please refer to medication reconciliation sheet for a list of medications. The impression and plan of care has been dictated by Lili Capone, Nurse Practitioner as directed. Dr. Thiago MD I have performed a history and examination and MDM of this patient, discussed the same with the dictator, and agree with the dictator's assessment and plan as written ,documented as a scribe. Based on total visit time, I have performed more than 50% of the visit. Patient Condition at Discharge: Fair Plan - Discharge Summary New Discharge Prescriptions: New Nystatin 100,000 Unit/gm Powd [Mycostatin Powder] 1 applic TOPICAL TID PRN each PRN Reason: Itching cefTRIAXone [Rocephin] 2 gm IVPB Q24HR 10 Days #10 each Continue Levothyroxine Sodium [Synthroid] 50 mcg PO HS Finasteride [Proscar] 5 mg PO DAILY Sertraline [Zoloft] 200 mg PO DAILY allopurinoL [Zyloprim] 100 mg PO BID Tamsulosin [Flomax] 0.8 mg PO HS Pantoprazole Sodium [Protonix] 40 mg PO DAILY Acetaminophen Tab [Tylenol] 650 mg PO Q6HR PRN tab PRN Reason: Fever And/ Or Pain bisacodyL [Dulcolax] 10 mg RECTAL Q72H PRN PRN Reason: Constipation carBAMazepine [TEGretol] 200 mg PO TID Fluticasone/Vilanterol [Breo Ellipta 100-25 Mcg Inhaler] 1 puff INHALATION RT-DAILY Hydrocortisone Cream [Hydrocortisone 2.5% Cream] 1 applic TOPICAL Q6H PRN PRN Reason: Anal Inflammation Magnesium Hydroxide [Milk of Magnesia] 2,400 mg PO Q48H PRN PRN Reason: Constipation Sennosides/Docusate Sodium [Senna Plus 8.6-50 mg Tablet] 1 tab PO DAILY Simethicone [Gas-X] 125 mg PO DAILY PRN PRN Reason: gastric bloating Atorvastatin [Lipitor] 40 mg PO HS Benzocaine [Anbesol] 1 applic DENTAL Q6H PRN PRN Reason: ORAL PAIN INSULIN LISPRO (humaLOG) [humaLOG] 14 unit SQ DAILY Polyvinyl Alcohol/Povidone [Clear Eyes Natural Tears Drop] 1 drop BOTH EYES TID Ondansetron [Zofran] 4 mg PO Q6H PRN PRN Reason: Nausea And Vomiting Loratadine 10 mg PO DAILY Insulin Lispro [Insulin Lispro Kwikpen U-100] See Protocol SQ TID carvediloL [Coreg] 3.125 mg PO BID Artificial Tears Ointment [Lubrifresh Pm Ointment] 0.25 inch OPHTHALMIC HS Gabapentin 600 mg PO TID #6 tab ALPRAZolam [Xanax] 0.5 mg PO HS #2 tab buPROPion XL [Wellbutrin XL] 300 mg PO DAILY Clopidogrel Bisulfate [Plavix] 75 mg PO DAILY Insulin Glargine,Hum.rec.anlog [Semglee Pen] 50 unit SQ DAILY lisinopriL [Prinivil] 20 mg PO DAILY Ziprasidone [Geodon] 20 mg PO TID Psyllium Husk 100% [Metamucil Packet] 6 gm PO DAILY Mag Hydrox/Al Hydrox/Simeth [Maalox] 30 ml PO TID-W/MEALS guaiFENesin-DM 100-10MG/5ML [Robitussin DM] 10 ml PO Q4H PRN PRN Reason: Cough Ergocalciferol [Vitamin D2 (1250 Mcg = 16699 Iu)] 1,250 mcg PO SA Empagliflozin [Jardiance] 25 mg PO DAILY Benzonatate [Tessalon Perles] 100 mg PO Q8H PRN PRN Reason: chronic cough Albuterol Sulfate [Albuterol Sulfate Hfa] 2 puff INHALATION RT-Q4H PRN PRN Reason: Shortness Of Breath ALPRAZolam [Xanax] 0.25 mg PO DAILY #2 tab Discontinued metFORMIN HCL [Glucophage] 1,000 mg PO BID Discharge Medication List Finasteride [Proscar] 5 mg PO DAILY 12/02/14 [History] Levothyroxine Sodium [Synthroid] 50 mcg PO HS 12/02/14 [History] Sertraline [Zoloft] 200 mg PO DAILY 12/02/14 [History] Tamsulosin [Flomax] 0.8 mg PO HS 12/02/14 [History] allopurinoL [Zyloprim] 100 mg PO BID 12/02/14 [History] Pantoprazole Sodium [Protonix] 40 mg PO DAILY 10/21/18 [History] Acetaminophen Tab [Tylenol] 650 mg PO Q6HR PRN tab 04/28/19 [Rx] Fluticasone/Vilanterol [Breo Ellipta 100-25 Mcg Inhaler] 1 puff INHALATION RT-D AILY 07/03/20 [History] Hydrocortisone Cream [Hydrocortisone 2.5% Cream] 1 applic TOPICAL Q6H PRN 07/03/20 [History] Magnesium Hydroxide [Milk of Magnesia] 2,400 mg PO Q48H PRN 07/03/20 [History] Sennosides/Docusate Sodium [Senna Plus 8.6-50 mg Tablet] 1 tab PO DAILY 07/03/20 [History] Simethicone [Gas-X] 125 mg PO DAILY PRN 07/03/20 [History] bisacodyL [Dulcolax] 10 mg RECTAL Q72H PRN 07/03/20 [History] carBAMazepine [TEGretol] 200 mg PO TID 07/03/20 [History] Atorvastatin [Lipitor] 40 mg PO HS 01/14/21 [History] Benzocaine [Anbesol] 1 applic DENTAL Q6H PRN 01/14/21 [History] Clopidogrel Bisulfate [Plavix] 75 mg PO DAILY 01/14/21 [History] INSULIN LISPRO (humaLOG) [humaLOG] 14 unit SQ DAILY 01/14/21 [History] Insulin Glargine,Hum.rec.anlog [Semglee Pen] 50 unit SQ DAILY 01/14/21 [History] Ziprasidone [Geodon] 20 mg PO TID 01/14/21 [History] buPROPion XL [Wellbutrin XL] 300 mg PO DAILY 01/14/21 [History] lisinopriL [Prinivil] 20 mg PO DAILY 01/14/21 [History] Albuterol Sulfate [Albuterol Sulfate Hfa] 2 puff INHALATION RT-Q4H PRN 08/24/22 [History] Artificial Tears Ointment [Lubrifresh Pm Ointment] 0.25 inch OPHTHALMIC HS 08/24/22 [History] Benzonatate [Tessalon Perles] 100 mg PO Q8H PRN 08/24/22 [History] Empagliflozin [Jardiance] 25 mg PO DAILY 08/24/22 [History] Ergocalciferol [Vitamin D2 (1250 Mcg = 51710 Iu)] 1,250 mcg PO SA 08/24/22 [History] Insulin Lispro [Insulin Lispro Kwikpen U-100] See Protocol SQ TID 08/24/22 [History] Loratadine 10 mg PO DAILY 08/24/22 [History] Mag Hydrox/Al Hydrox/Simeth [Maalox] 30 ml PO TID-W/MEALS 08/24/22 [History] Ondansetron [Zofran] 4 mg PO Q6H PRN 08/24/22 [History] Polyvinyl Alcohol/Povidone [Clear Eyes Natural Tears Drop] 1 drop BOTH EYES TID 08/24/22 [History] Psyllium Husk 100% [Metamucil Packet] 6 gm PO DAILY 08/24/22 [History] carvediloL [Coreg] 3.125 mg PO BID 08/24/22 [History] guaiFENesin-DM 100-10MG/5ML [Robitussin DM] 10 ml PO Q4H PRN 08/24/22 [History] ALPRAZolam [Xanax] 0.25 mg PO DAILY #2 tab 08/27/22 [Rx] ALPRAZolam [Xanax] 0.5 mg PO HS #2 tab 08/27/22 [Rx] Gabapentin 600 mg PO TID #6 tab 08/27/22 [Rx] Nystatin 100,000 Unit/gm Powd [Mycostatin Powder] 1 applic TOPICAL TID PRN each 08/27/22 [Rx] cefTRIAXone [Rocephin] 2 gm IVPB Q24HR 10 Days #10 each 08/27/22 [Rx] Follow up Appointment(s)/Referral(s): [facility], [NON-STAFF] - 1 Week Lori Schultz PAC [Primary Care Provider] - 1-2 days Ambulatory/Diagnostic Orders: Basic Metabolic Panel [LAB.AMB] Time Frame: 3 Days, Location: None Selected Activity/Diet/Wound Care/Special Instructions: Patient is returning to [facility] Activity as tolerated Recommend consistent carb heart healthy diet Recommend continue monitoring Accu-Cheks before meals and at bedtime and continue with insulin regimen NovoLog sliding scale 0-150 equals 0 units 151-200 equals 2 units 201-250 equals 4 units 251-300 equals 6 units 301-350 equals 8 units 351-400 equals 10 units Please notify provider if blood sugar is 400 or above Patient is receiving a midline and will continue on IV antibiotics in the form of ceftriaxone 2 g daily for the next 10 days Follow-up primary care provider on discharge Recommend repeat labs of BMP in the next 2-3 days Recommend continue holding metformin until kidney functions have improved Discharge Disposition: TRANSFER TO SNF/ECF
--- NOTE | 2022-08-27 14:23 | P.PN ---
Subjective Progress Note Date: 08/27/22 History of Present Illness: The patient is a 72 old male with a history of hyperlipidemia, diabetes, hyper tension who was transferred because of urine tract infection and mild troponin elevation. He is followed by Dr. Interiano. He carries the diagnosis of a mild myocardial infarction according to him but no intervention. He has a history of murmur. He is limited in his physical activity. He denies any significant dyspnea or chest discomfort. He has no peripheral edema, dizziness or syncope. He is a nonsmoker. He lives in an adult foster residential. His troponin is mildly elevated and flat, not consistent with an acute myocardial infarction. He has an indwelling Altman catheter and being evaluated to undergo prostate surgery. He was hypotensive initially related to his infectious process. Medications: Plavix, Lipitor 40 mg daily, Xanax, insulin, Jardiance, Coreg 3.25 mg twice a day, Prinivil 20 mg daily, Glucophage 08/26 patient is seen today in follow-up. Noted the patient has been receiving his SAM inhibitor and renal function is improving today. Will plan to continue ACEI as scheduled. echocardiogram obtained this morning and report is pending. 08/27 Patient is seen today in follow-up. Echocardiogram reveals EF of 55%. Moderate increased left ventricular wall thickness area and moderate aortic stenosis. Mild tricuspid regurgitation. No pericardial effusion. Patient has no new concerns today. He continues treatment for urinary tract infection. Physical Examination: 72-year-old male, alert no apparent distress ,Blood pressure 117/62, Heart rate 65 Head: Normocephalic. Eyes: Sclerae nonicteric. Neck: Good carotid upstroke, no bruit, no jugular venous distention. Lungs: Clear to auscultation. Heart: Regular rate and rhythm, S1-S2, no S3, no rub. short systolic ejection murmur, 3/6. Abdomen: Soft nontender, positive bowel sounds no organomegaly. Extremities: No edema, intact distal pulses. Impression: 1. UTI with indwelling Altman catheter 2. Mild troponin elevation, no pattern of acute ischemic event, likely type II event 3. History of hypertension 4. History of hyperlipidemia 5. Diabetes 6. Abnormal renal function Plan: Continue patient's current cardiac medications. Patient is cleared for discharge from cardiology perspective. Patient to follow-up in the office with Dr. Interiano. Cardiology will sign off and follow on an as-needed basis. Please reconsult for any new concerns. Nurse practitioner note has been reviewed, I agree with the documented findings and plan of care. Patient was seen and examined. Objective - Vital Signs Vital signs: Vital Signs Temp 97.9 F 08/27/22 08:00 Pulse 62 08/27/22 08:00 Resp 18 08/27/22 08:00 BP 124/58 08/27/22 08:00 Pulse Ox 92 L 08/27/22 08:00 FiO2 Intake & Output 08/26/22 08/27/22 08/27/22 18:59 06:59 18:59 Intake Total 240 355 Output Total 2555 2200 1000 Balance -8818 -2200 -625 Weight 99.79 kg Intake: Oral 240 355 Output: Urine 2555 2200 1000 Other: Voiding Method Indwelling Catheter Indwelling Catheter - Labs CBC & Chem 7: 08/26/22 07:11 08/27/22 08:57 Labs: Abnormal Lab Results - Last 24 Hours (Table) 08/26/22 08/26/22 08/26/22 Range/Units 11:35 16:16 20:20 POC Glucose (mg/dL) 196 H 321 H 248 H (70-110) mg/dL 08/27/22 08/27/22 Range/Units 05:34 06:47 POC Glucose (mg/dL) 221 H 272 H (70-110) mg/dL Microbiology - Last 24 Hours (Table) 08/24/22 14:30 Blood Culture - Preliminary Blood 08/24/22 13:06 Urine Culture - Final Urine,Voided Escherichia coli Enterobacter aerogenes
[2022-08-27 16:14] LABS: Glucose,Whole Blood 309 mg/dL (70-110)
[2022-08-27] MEDS: ACETAMINOPHEN TAB 325 MG TAB PO PRN (17:09)
--- NOTE | 2022-08-27 20:56 | CDI ---
Documentation Clarification Form Date: 08/27/2022 8:07:37 PM From: Olive Arriaza RN, CCDS Admit Date: 08/24/2022 2:14:00 PM Patient Name: Jarrell Díaz Visit Number: [id number] Discharge Date: 08/27/2022 6:00:00 PM ATTENTION: The Clinical Documentation Specialists (CDI) and [facility] Coding Staff appreciate your assistance in clarifying documentation. Please respond to the clarification below the line at the bottom and electronically sign. The CDI & [facility] Coding staff will review the response and follow-up if needed. Please note: Queries are made part of the Legal Health Record. If you have any questions, please contact the author of this message via ITS. Dr. Kassie Das Catheter-associated UTI is documented in ID Consult and subsequent progress notes and patient has Altman catheter present on admission. Additional clarification regarding the etiology of the UTI is requested. History/Risk Factors: CVA, Diabetes mellitus, COPD, Hypertension, Prostate disorder Clinical Indicators: 72-year-old male sent from [facility] from [facility] report of fever and low blood pressure. Patients have a chronic indwelling Altman catheter. 08/24 VS: 91/55 72 18 98 88 % RA Urinalysis: Positive for Leukocyte Esterase Large Urine culture: Gram-[place], Escherichia coli 08/24 Lab results: WBC 10.9 Neutrophils 10.1, BUN 31, CR 1.52 08/26 ID: Sepsis Catheter-associated urinary tract infection Treatment: Cardiac/Telemetry monitoring Rocephin 1,000 MG IVP 08/24 then 2 GM q 24 HRS 08/25-08/25 Cefpine 2 GM IVPB Q 8 HRS 08/26-08/27 Vancomycin 750 MG IVPB Once PTD .9 NS IV @75 MLS/HR 08/24-08/26 Please clarify the etiology of the UTI, if known: [ ] Altman catheter [ ] UTI not related to Altman catheter [ ] Other condition, please specify [ ] Unable to determine (Template Last Revised: June 2020) Altman catheter MTDD
--- NOTE | 2022-08-27 21:21 | CDI ---
Documentation Clarification Form Date: 08/27/2022 8:59:44 PM From: Olive Arriaza RN, CCDS Admit Date: 08/24/2022 2:14:00 PM Patient Name: Jarrell Díaz Visit Number: [id number] Discharge Date: 08/27/2022 6:00:00 PM ATTENTION: The Clinical Documentation Specialists (CDI) and [facility] Coding Staff appreciate your assistance in clarifying documentation. Please respond to the clarification below the line at the bottom and electronically sign. The CDI & [facility] Coding staff will review the response and follow-up if needed. Please note: Queries are made part of the Legal Health Record. If you have any questions, please contact the author of this message via ITS. Dr. Lore Gillette There is documentation of Type II Event in the cardiology consult on 08/25/22 and subsequent progress. Additional clarification is requested. History/Risk Factors: CVA, Diabetes mellitus, COPD, Hypertension, Prostate disorder Clinical Indicators: 72-year-old male sent from [facility] from [facility] report of fever and low blood Patients have a chronic indwelling Altman catheter. She was transferred because of urine tract infection. She had troponin elevation. Per progress notes. He was hypotensive initially related to his infectious process. 08/24 VS: 91/55 72 18 98 88 % RA 08/24 Labs: BUN 31 Creatinine 1.35, 1.52 on admission. Troponin 0.064, 0.069, 0.049 08/24 CXR: possible atelectasis EKG: Sinus mechanism right bundle branch block and left anterior fascicular block. 08/27 ECHO: Left ventricular ejection fraction is estimated at 55 %. Moderate concentric Left ventricular hypertrophy. Grade 1 diastolic dysfunction. Treatment: Cardiac/Telemetry monitoring Lipitor 40 MG PO HS, Corag 3.125 MG PO AC-BID Rocephin 1,000 MG IVP 08/24 then 2 GM q 24 HRS 08/25-08/25 Cefpine 2 GM IVPB Q 8 HRS 08/26-08/27 Vancomycin 750 MG IVPB Once PTD .9 NS IV @75 MLS/HR 08/24-08/26 Can you further please clarify Type II Event? [ xxx] Myocardial Infarction Type II due to Sepsis [ ] Other, please specify [ ] Unable to determine (Template Last Revised: June 2020) MTDD
[2022-08-31] MEDS ORDERED: ERGOCALCIFEROL 1,250 MCG (50,000 IU) CAPSULE PO SCH (09:00)
== END 2022-08-27 18:00 | DRG 698 ==
LOC: EC 11:35 → 3SCARD 14:14
PROVIDERS: ADMIT Hospitalist; ATTEND Hospitalist
PROC: 05HF33Z Insertion of Infusion Device into Left Cephalic Vein, Percutaneous Approach (ICD-10-PCS; principal; 2022-08-27 16:30)
DX: T83.511A Infection and inflammatory reaction due to indwelling urethral catheter, initial encounter (principal); A41.51 Sepsis due to Escherichia coli [E. coli]; R65.21 Severe sepsis with septic shock; I21.A1 Myocardial infarction type 2; J96.11 Chronic respiratory failure with hypoxia; N39.0 Urinary tract infection, site not specified; E03.9 Hypothyroidism, unspecified; Z99.81 Dependence on supplemental oxygen; E11.42 Type 2 diabetes mellitus with diabetic polyneuropathy; E11.65 Type 2 diabetes mellitus with hyperglycemia; Z79.4 Long term (current) use of insulin; R29.6 Repeated falls; J44.9 Chronic obstructive pulmonary disease, unspecified; M10.9 Gout, unspecified; M54.9 Dorsalgia, unspecified; G89.29 Other chronic pain; E66.01 Morbid (severe) obesity due to excess calories; I25.2 Old myocardial infarction; I10 Essential (primary) hypertension; Y84.6 Urinary catheterization as the cause of abnormal reaction of the patient, or of later complication, without mention of misadventure at the time of the procedure; Z68.30 Body mass index [BMI] 30.0-30.9, adult; F43.10 Post-traumatic stress disorder, unspecified; F31.9 Bipolar disorder, unspecified; R26.9 Unspecified abnormalities of gait and mobility; Z86.73 Personal history of transient ischemic attack (TIA), and cerebral infarction without residual deficits; Z91.81 History of falling; G47.33 Obstructive sleep apnea (adult) (pediatric); K21.9 Gastro-esophageal reflux disease without esophagitis; E78.5 Hyperlipidemia, unspecified; Z28.310 Unvaccinated for COVID-19; Z79.84 Long term (current) use of oral hypoglycemic drugs; Z71.3 Dietary counseling and surveillance; N40.0 Benign prostatic hyperplasia without lower urinary tract symptoms; Z89.021 Acquired absence of right finger(s); Z86.19 Personal history of other infectious and parasitic diseases; Z86.718 Personal history of other venous thrombosis and embolism; Z86.711 Personal history of pulmonary embolism; R77.8 Other specified abnormalities of plasma proteins; Z88.6 Allergy status to analgesic agent; Z88.8 Allergy status to other drugs, medicaments and biological substances; Z79.890 Hormone replacement therapy; Z79.02 Long term (current) use of antithrombotics/antiplatelets; Z79.899 Other long term (current) drug therapy; Z87.19 Personal history of other diseases of the digestive system; Z87.440 Personal history of urinary (tract) infections
CPT/HCPCS: 36410; 36415; 71046; 76770; 76937; 80048; 80053; 81001; 82565; 83036; 83605; 83880; 84484; 85025; 85027; 85379; 87077; 87086; 87186; 93005; 93306; 94640; 94760; 96374; 96375; 99291

== ENCOUNTER 2022-09-07 23:57 | Inpatient (IN) | payer OTHER, MEDICARE ==
--- NOTE | 2022-09-08 01:03 | ED ---
SOB HPI - General Chief Complaint: Shortness of Breath Stated Complaint: Ammonia Time Seen by Provider: 09/08/22 00:16 Source: patient, EMS Mode of arrival: EMS Limitations: no limitations - History of Present Illness Initial Comments: Patient is a 72-year-old male who is a transfer from [facility]. His presenting complaint there was altered mental status. They state that the patient is normally alert and oriented 3. Had increased sleepiness. Oxygen saturation saturations were 88-90% on his usual 2 L. Patient had a fever. Creatinine is 1.4. Magnesium 2.3. BNP 421. white blood cell count is 18.8. Covid test was negative. Urinalysis demonstrated rare bacteria. Patient had CT of the of the head which demonstrated no acute intracranial process. CT chest without contrast which demonstrates a multifocal pneumonia. CT abdomen and pelvis demonstrates no acute findings. Patient initiated on broad-spectrum antibiotics including vancomycin, Zosyn. He was given a liter of normal saline and lokelma. They then requested transfer to our facility. Patient presents and has no complaints. He is alert and oriented 3. No other alleviating, precipitating or modifying factors - Related Data Home Medications Medication Instructions Recorded Confirmed Finasteride [Proscar] 5 mg PO DAILY 12/02/14 09/08/22 Levothyroxine Sodium [Synthroid] 50 mcg PO HS 12/02/14 09/08/22 Sertraline [Zoloft] 200 mg PO DAILY 12/02/14 09/08/22 Tamsulosin [Flomax] 0.8 mg PO HS 12/02/14 09/08/22 allopurinoL [Zyloprim] 100 mg PO BID 12/02/14 09/08/22 Pantoprazole Sodium [Protonix] 40 mg PO DAILY 10/21/18 09/08/22 Fluticasone/Vilanterol [Breo 1 puff INHALATION RT-DAILY 07/03/20 09/08/22 Ellipta 100-25 Mcg Inhaler] Magnesium Hydroxide [Milk of 2,400 mg PO Q48H PRN 07/03/20 09/08/22 Magnesia] Sennosides/Docusate Sodium [Senna 1 tab PO DAILY 07/03/20 09/08/22 Plus 8.6-50 mg Tablet] Simethicone [Gas-X] 125 mg PO DAILY PRN 07/03/20 09/08/22 bisacodyL [Dulcolax] 10 mg RECTAL Q72H PRN 07/03/20 09/08/22 carBAMazepine [TEGretol] 200 mg PO TID 07/03/20 09/08/22 Atorvastatin [Lipitor] 40 mg PO HS 01/14/21 09/08/22 Clopidogrel Bisulfate [Plavix] 75 mg PO DAILY 01/14/21 09/08/22 INSULIN LISPRO (humaLOG) [humaLOG] 14 unit SQ DAILY 01/14/21 09/08/22 Insulin Glargine,Hum.rec.anlog 55 unit SQ DAILY 01/14/21 09/08/22 [Semglee Pen] Ziprasidone [Geodon] 20 mg PO TID 01/14/21 09/08/22 buPROPion XL [Wellbutrin XL] 300 mg PO DAILY 01/14/21 09/08/22 Albuterol Sulfate [Albuterol 2 puff INHALATION RT-Q4H PRN 08/24/22 09/08/22 Sulfate Hfa] Artificial Tears Ointment 0.25 inch OPHTHALMIC HS 08/24/22 09/08/22 [Lubrifresh Pm Ointment] Benzonatate [Tessalon Perles] 100 mg PO Q8H PRN 08/24/22 09/08/22 Empagliflozin [Jardiance] 25 mg PO DAILY 08/24/22 09/08/22 Ergocalciferol [Vitamin D2 (1250 1,250 mcg PO SA 08/24/22 09/08/22 Mcg = 42080 Iu)] Insulin Lispro [Insulin Lispro See Protocol SQ TID 08/24/22 09/08/22 Kwikpen U-100] Loratadine 10 mg PO DAILY 08/24/22 09/08/22 Mag Hydrox/Al Hydrox/Simeth 30 ml PO TID-W/MEALS 08/24/22 09/08/22 [Maalox] Ondansetron [Zofran] 4 mg PO Q6H PRN 08/24/22 09/08/22 Polyvinyl Alcohol/Povidone [Clear 1 drop BOTH EYES TID 08/24/22 09/08/22 Eyes Natural Tears Drop] Psyllium Husk 100% [Metamucil 6 gm PO DAILY 08/24/22 09/08/22 Packet] carvediloL [Coreg] 3.125 mg PO BID 08/24/22 09/08/22 guaiFENesin-DM 100-10MG/5ML 10 ml PO Q4H PRN 08/24/22 09/08/22 [Robitussin DM] Acetaminophen [Tylenol 8 Hour] 650 mg PO Q6H PRN 09/08/22 09/08/22 Hydrocortisone [Anusol-Hc] 1 applic RECTAL Q6H PRN 09/08/22 09/08/22 Previous Rx's Medication Instructions Recorded ALPRAZolam [Xanax] 0.25 mg PO DAILY #2 tab 09/10/22 ALPRAZolam [Xanax] 0.5 mg PO HS 2 Days #2 tab 09/10/22 Amoxic-Pot Clav 875-125Mg 1 tab PO Q12HR 4 Days #8 tab 09/10/22 [Augmentin 875-125] Benzocaine 20 % Gel [Orajel] 1 applic MM Q6H PRN each 09/10/22 Gabapentin 600 mg PO TID #6 tab 09/10/22 Lactobacillus Acidoph & Bulgar 1 each PO TID packet 09/10/22 [Lactinex] Allergies Allergy/AdvReac Type Severity Reaction Status Date / Time etodolac [From Lodine] Allergy Unknown Verified 09/08/22 11:38 oxybutynin Allergy Unknown Verified 09/08/22 11:38 aspirin AdvReac ABDOMINAL Verified 09/08/22 11:38 DISCOMFORT Review of Systems ROS Statement: Those systems with pertinent positive or pertinent negative responses have been documented in the HPI. ROS Other: All systems not noted in ROS Statement are negative. Past Medical History Past Medical History: COPD, CVA/TIA, Diabetes Mellitus, Deep Vein Thrombosis (DVT), GERD/Reflux, Hypertension, Myocardial Infarction (MT), Prostate Disorder, Pulmonary Embolus (PE), Sleep Apnea/CPAP/BIPAP, Thyroid Disorder Additional Past Medical History / Comment(s): Morbid obesity, obstructive sleep apnea uses CPAP-uses O2 at 5 L during night with cpap, uses 3 liters nasal cannula at home continuous, SOB,history of peripheral neuropathy severe associated related to diabetes mellitus, gait dysfunction and frequent falls- uses w/c-able to stand to transfer, chronic back pain, gout, BPH, TIA/CVA-loyda arm and leg weakness, previous history of C. diff colitis back in 2011,hypothyroidism,colon polyps, per speech is garbled/slurred which is the residual from old stroke Last Myocardial Infarction Date:: 2010 History of Any Multi-Drug Resistant Organisms: None Reported Date of last positivie culture/infection: None MDRO Source:: None Past Surgical History: Hernia Repair Additional Past Surgical History / Comment(s): hiatal hernia repair x 2, umbilical hernia repair,2nd digit rt hand amputated Past Anesthesia/Blood Transfusion Reactions: No Reported Reaction Past Psychological History: Bipolar, Depression, PTSD Smoking Status: Never smoker Past Alcohol Use History: None Reported Past Drug Use History: None Reported - Past Family History Father Family Medical History: Cancer Additional Family Medical History / Comment(s): lung Mother Family Medical History: Cancer Additional Family Medical History / Comment(s): bladder General Exam Limitations: no limitations General appearance: alert, in no apparent distress Head exam: Present: atraumatic, normocephalic, normal inspection Eye exam: Present: normal appearance, PERRL, EOMI. Absent: scleral icterus, conjunctival injection, periorbital swelling ENT exam: Present: normal exam, mucous membranes moist Neck exam: Present: normal inspection. Absent: tenderness, meningismus, lymphadenopathy Respiratory exam: Present: decreased breath sounds, other (coarse breath sounds in all lung mukherjee). Absent: respiratory distress, wheezes, rales, rhonchi, stridor Cardiovascular Exam: Present: regular rate, normal rhythm, normal heart sounds. Absent: systolic murmur, diastolic murmur, rubs, gallop, clicks GI/Abdominal exam: Present: soft, normal bowel sounds. Absent: distended, tenderness, guarding, rebound, rigid Extremities exam: Present: full ROM, normal capillary refill, pedal edema. Absent: tenderness, joint swelling, calf tenderness Back exam: Present: normal inspection Neurological exam: Present: alert, oriented X3, CN II-XII intact Psychiatric exam: Present: normal affect, normal mood Skin exam: Present: warm, dry, intact, normal color. Absent: rash Course Vital Signs 09/08/22 09/08/22 00:04 03:09 Temperature 98.1 F Pulse Rate 69 65 Respiratory 20 22 Rate Blood Pressure 109/54 120/62 O2 Sat by Pulse 97 100 Oximetry Medical Decision Making - Medical Decision Making Was pt. sent in by a medical professional or institution (, OSMAN, IT CONSULTING MANAGER, urgent care, hospital, or retirement...) When possible be specific @ -[facility] Did you speak to anyone other than the patient for history (EMS, parent, family, police, friend...)? What history was obtained from this source @ -EMS Did you review nursing and triage notes (agree or disagree)? Why? @ -I reviewed and agree with nursing and triage notes Were old charts reviewed (outside hosp., previous admission, EMS record, old EKG, old radiological studies, urgent care reports/EKG's, retirement records)? Report findings @ -I reviewed the patient's charts from outside hospital from earlier today Differential Diagnosis (chest pain, altered mental status, abdominal pain women, abdominal pain men, vaginal bleeding, weakness, fever, dyspnea, syncope, headache, dizziness, GI bleed, back pain, seizure, CVA, palpatations, mental health, musculoskeletal)? @ -Differential Dyspnea: Coronary syndrome, arrhythmia, tamponade, asthma, COPD, pulmonary embolism, pneumonia, pneumothorax, pulmonary effusion, anaphylaxis, diabetic ketoacidosis, flailed chest, pulmonary contusion, diaphragmatic rupture, anemia, neuromuscular, this is not meant to be an all-inclusive list. EKG interpreted by me (3pts min.). @ -Not completed X-rays interpreted by me (1pt min.). @ -None done CT interpreted by me (1pt min.). @ -None done U/S interpreted by me (1pt. min.). @ -None done What testing was considered but not performed or refused? (CT, X-rays, U/S, labs)? Why? @ -None What meds were considered but not given or refused? Why? @ -None Did you discuss the management of the patient with other professionals (professionals i.e. , OSMAN, IT CONSULTING MANAGER, lab, RT, psych nurse, drug abuse social worker, recoverer, teacher, chairman & chief executive officer, rifle case repairer)? Give summary @ -Spoke with Dr. Cordero who agreed to admit the patient Was smoking cessation discussed for >3mins.? @ -No Was critical care preformed (if so, how long)? @ -No Were there social determinants of health that impacted care today? How? (Homelessness, low income, unemployed, alcoholism, drug addiction, transportation, low edu. Level, literacy, decrease access to med. care, usp, rehab)? @ -No Was there de-escalation of care discussed even if they declined (Discuss DNR or withdrawal of care, Hospice)? DNR status @ -No What co-morbidities impacted this encounter? (DM, HTN, Smoking, COPD, CAD, Cancer, CVA, ARF, Chemo, Hep., AIDS, mental health diagnosis, sleep apnea, morbid obesity)? @ -COPD on home O2, DVT, MT Was patient admitted / discharged? Hospital course, mention meds given and route, prescriptions, significant lab abnormalities, going to OR and other pertinent info. @ -Upon arrival patient is placed into room 3. I did review his packet from [facility]. Repeat labs were conducted. Troponin mildly elevated however this is chronic for the patient. White count 15.7. He will be admitted with IV antibiotics. Spoke with Dr. Cordero who agreed to admit the patient Undiagnosed new problem with uncertain prognosis? @ -Yes Drug Therapy requiring intensive monitoring for toxicity (Heparin, Nitro, Insulin, Cardizem)? @ -No Were any procedures done? @ -No Diagnosis/symptom? @ -Acute encephalopathy, acute respiratory insufficiency, acute multifocal pneumonia, NSTEMI, leukocytosis Acute, or Chronic, or Acute on Chronic? @ -Acute Uncomplicated (without systemic symptoms) or Complicated (systemic symptoms)? @ -Complicated Side effects of treatment? @ -No Exacerbation, Progression, or Severe Exacerbation? @ -No Poses a threat to life or bodily function? How? (Chest pain, USA, MT, pneumonia, PE, COPD, DKA, ARF, appy, cholecystitis, CVA, Diverticulitis, Homicidal, S uicidal, threat to staff... and all critical care pts) @ -No - Lab Data Result diagrams: 09/10/22 07:09 09/10/22 07:09 Lab Results 09/08/22 09/08/22 09/08/22 Range/Units 01:25 01:25 01:25 WBC 15.7 H (3.8-10.6) k/uL RBC 4.13 L (4.30-5.90) m/uL Hgb 12.7 L (13.0-17.5) gm/dL Hct 37.9 L (39.0-53.0) % MCV 91.6 (80.0-100.0) fL MCH 30.6 (25.0-35.0) pg MCHC 33.4 (31.0-37.0) g/dL RDW 15.8 H (11.5-15.5) % Plt Count 162 (150-450) k/uL MPV 7.9 Neutrophils % 85 % Lymphocytes % 10 % Monocytes % 3 % Eosinophils % 1 % Basophils % 0 % Neutrophils # 13.2 H (1.3-7.7) k/uL Lymphocytes # 1.6 (1.0-4.8) k/uL Monocytes # 0.5 (0-1.0) k/uL Eosinophils # 0.2 (0-0.7) k/uL Basophils # 0.1 (0-0.2) k/uL Sodium 133 L (137-145) mmol/L Potassium 5.4 H (3.5-5.1) mmol/L Chloride 94 L (98-107) mmol/L Carbon Dioxide 29 (22-30) mmol/L Anion Gap 10 mmol/L BUN 32 H (9-20) mg/dL Creatinine 1.46 H (0.66-1.25) mg/dL Est GFR (CKD-EPI)AfAm 54 (>60 ml/min/1.73 sqM) Est GFR (CKD-EPI)NonAf 47 (>60 ml/min/1.73 sqM) Glucose 262 H (74-99) mg/dL Calcium 9.4 (8.4-10.2) mg/dL Total Bilirubin 0.3 (0.2-1.3) mg/dL AST 34 (17-59) U/L ALT 28 (4-49) U/L Alkaline Phosphatase 120 (38-126) U/L Troponin I 0.051 H* (0.000-0.034) ng/mL Total Protein 7.2 (6.3-8.2) g/dL Albumin 3.9 (3.5-5.0) g/dL Disposition Clinical Impression: Fever, Elevated troponin, Pneumonia Disposition: ADMITTED IP TO THIS HOSP Condition: Stable Is patient prescribed a controlled substance at d/c from ED?: No Decision to Admit Reason: Admit from EC Decision Date: 09/08/22 Decision Time: 02:41
[2022-09-08 01:42] LABS: Basophils # (A) 0.1 k/uL (0-0.2); Basophils % (A) 0 %; Eosinophils # (A) 0.2 k/uL (0-0.7); Eosinophils % (A) 1 %; HCT 37.9 % (39.0-53.0); HGB 12.7 gm/dL (13.0-17.5); Lymphocytes # (A) 1.6 k/uL (1.0-4.8); Lymphocytes % (A) 10 %; MCH 30.6 pg (25.0-35.0); MCHC 33.4 g/dL (31.0-37.0); MCV 91.6 fL (80.0-100.0); Mean Platelet Volume 7.9; Monocytes # (A) 0.5 k/uL (0-1.0); Monocytes % (A) 3 %; Neutrophils # (A) 13.2 k/uL (1.3-7.7); Neutrophils % (A) 85 %; Platelet Count 162 k/uL (150-450); RBC 4.13 m/uL (4.30-5.90); RDW 15.8 % (11.5-15.5); WBC 15.7 k/uL (3.8-10.6)
[2022-09-08 01:54] LABS: Albumin 3.9 g/dL (3.5-5.0); Calcium 9.4 mg/dL (8.4-10.2); Potassium 5.4 mmol/L (3.5-5.1); Total Bilirubin 0.3 mg/dL (0.2-1.3); Total Protein 7.2 g/dL (6.3-8.2)
[2022-09-08] MEDS ORDERED: PNEUMONIA PROTOCOL UTILIZED 1 EACH MISC PO PRN (02:42)
[2022-09-08] MEDS: PIPERACILLIN-TAZOBACTAM 3.375 GM in SODIUM CHLORIDE 0.9% 100 ML IVPB SCH ×2 (03:23→16:08)
--- NOTE | 2022-09-08 04:50 | P.HPIM ---
History of Present Illness H&P Date: 09/08/22 The patient is a 72-year-old male with a PMH of this COPD with chronic hypoxic respiratory failure on 3 L nasal cannula continuously at home, valvular heart disease, type II DM, hypertension, who was transferred from [facility] where the patient presented earlier today with complaints of confusion. The patient was a resident of a nursing facility and is normally alert and oriented 3 was noted to be lethargic and confused. The patient underwent an extensive evaluation at [facility] where a CT chest revealed findings consistent with multifocal pneumonia. A CT brain was unremarkable. The patient was started on broad-spectrum IV antibiotics including Zosyn and vancomycin and was subsequently transferred. At time of interview, the patient reports that he has been experiencing a cough productive of clear to yellow phlegm over the past 1 week and has been feeling more short of breath. He denied experiencing chest discomfort, nausea, vomiting, abdominal pain, diarrhea. The patient underwent an extensive evaluation in the emergency room. Laboratory evaluation was remarkable for leukocytosis of 15.7, hemoglobin 12.7, sodium 132, potassium 5.4, BUN 32, creatinine 1.46 (up from 1.1 baseline), and troponin 0.051 (0.038 at [facility]). Pro-calcitonin levels at [facility] or 0.24 with UA unremarkable. ED documentation reviewed and case discussed with ED provider. Review of systems: Pertinent positives and negatives as discussed in HPI, a complete review of systems was performed and all other systems are negative. Physical examination: Vital signs reviewed General: non toxic, no distress, appears at stated age, obese Derm: no unusual rashes/lesions, warm Head: atraumatic, normocephalic, symmetric Eyes: EOMI, no lid lag, anicteric sclera, pupils equal round reactive to light ENT: Nose and ears atraumatic Neck: No cervical lymphadenopathy, trachea midline, supple Mouth: no lip lesion, mucus membranes moist Cardiovascular: S1S2 reg, systolic grade 4 murmur appreciated, positive dorsalis pedis pulse bilateral, no edema Lungs: Scattered rhonchi, no wheezing, no accessory muscle use Abdominal: soft, nontender to palpation, no guarding Ext: muscle strength 4 out of 5 in all 4 extremities grossly, no gross muscle atrophy, no contractures, Neuro: CN II-XI grossly intact, no gross focal neuro deficits Psych: Alert, oriented, appropriate affect Assessment: Sepsis secondary to hospital acquired pneumonia Acute on chronic hypoxic respiratory failure, likely secondary to above Elevated troponin Acute kidney injury Hyperkalemia Chronic conditions: Type II DM, hypertension Data Review: Laboratory evaluation was remarkable for leukocytosis of 15.7, hemoglobin 12.7, sodium 132, potassium 5.4, BUN 32, creatinine 1.46 (up from 1.1 baseline), and troponin 0.051 (0.038 at [facility]) Plan: Continue with broad-spectrum coverage with azithromycin and Zosyn Follow-up Legionella antigen testing and sputum culture Pulmonary consulted Trend troponin with cardiac monitoring. Patient currently denying chest discomfort Supplemental oxygen Judicious use of IV fluids Insulin sliding scale and blood glucose monitoring DVT prophylaxis: Heparin subq The patient is admitted with an anticipated greater than 2 midnight stay for evaluation of pneumonia CODE STATUS: Full Code Discussed with: Patient Anticipated discharge date: 3-[address]: [facility] Past Medical History Past Medical History: COPD, CVA/TIA, Diabetes Mellitus, Deep Vein Thrombosis (DVT), GERD/Reflux, Hypertension, Myocardial Infarction ([place]), Prostate Disorder, Pulmonary Embolus (PE), Sleep Apnea/CPAP/BIPAP, Thyroid Disorder Additional Past Medical History / Comment(s): Morbid obesity, obstructive sleep apnea uses CPAP-uses O2 at 5 L during night with cpap, uses 3 liters nasal cannula at home continuous, SOB,history of peripheral neuropathy severe associated related to diabetes mellitus, gait dysfunction and frequent falls- uses w/c-able to stand to transfer, chronic back pain, gout, BPH, TIA/CVA-loyda arm and leg weakness, previous history of C. diff colitis back in 2010,hypothyroidism,colon polyps, per speech is garbled/slurred which is the residual from old stroke Last Myocardial Infarction Date:: 2010 History of Any Multi-Drug Resistant Organisms: None Reported Date of last positivie culture/infection: None MDRO Source:: None Past Surgical History: Hernia Repair Additional Past Surgical History / Comment(s): hiatal hernia repair x 2, umbilical hernia repair,2nd digit rt hand amputated Past Anesthesia/Blood Transfusion Reactions: No Reported Reaction Past Psychological History: Bipolar, Depression, PTSD Smoking Status: Never smoker Past Alcohol Use History: None Reported Past Drug Use History: None Reported - Past Family History Father Family Medical History: Cancer Additional Family Medical History / Comment(s): lung Mother Family Medical History: Cancer Additional Family Medical History / Comment(s): bladder Medications and Allergies Home Medications Medication Instructions Recorded Confirmed Type Finasteride [Proscar] 5 mg PO DAILY 12/02/14 08/24/22 History Levothyroxine Sodium [Synthroid] 50 mcg PO HS 12/02/14 08/24/22 History Sertraline [Zoloft] 200 mg PO DAILY 12/02/14 08/24/22 History Tamsulosin [Flomax] 0.8 mg PO HS 12/02/14 08/24/22 History allopurinoL [Zyloprim] 100 mg PO BID 12/02/14 08/24/22 History Pantoprazole Sodium [Protonix] 40 mg PO DAILY 10/21/18 08/24/22 History Acetaminophen Tab [Tylenol] 650 mg PO Q6HR PRN tab 04/28/19 08/24/22 Rx Fluticasone/Vilanterol [Breo 1 puff INHALATION RT-DAILY 07/03/20 08/24/22 History Ellipta 100-25 Mcg Inhaler] Hydrocortisone Cream 1 applic TOPICAL Q6H PRN 07/03/20 08/24/22 History [Hydrocortisone 2.5% Cream] Magnesium Hydroxide [Milk of 2,400 mg PO Q48H PRN 07/03/20 08/24/22 History Magnesia] Sennosides/Docusate Sodium [Senna 1 tab PO DAILY 07/03/20 08/24/22 History Plus 8.6-50 mg Tablet] Simethicone [Gas-X] 125 mg PO DAILY PRN 07/03/20 08/24/22 History bisacodyL [Dulcolax] 10 mg RECTAL Q72H PRN 07/03/20 08/24/22 History carBAMazepine [TEGretol] 200 mg PO TID 07/03/20 08/24/22 History Atorvastatin [Lipitor] 40 mg PO HS 01/14/21 08/24/22 History Benzocaine [Anbesol] 1 applic DENTAL Q6H PRN 01/14/21 08/24/22 History Clopidogrel Bisulfate [Plavix] 75 mg PO DAILY 01/14/21 08/24/22 History INSULIN LISPRO (humaLOG) [humaLOG] 14 unit SQ DAILY 01/14/21 08/24/22 History Insulin Glargine,Hum.rec.anlog 50 unit SQ DAILY 01/14/21 08/24/22 History [Semglee Pen] Ziprasidone [Geodon] 20 mg PO TID 01/14/21 08/24/22 History buPROPion XL [Wellbutrin XL] 300 mg PO DAILY 01/14/21 08/24/22 History lisinopriL [Prinivil] 20 mg PO DAILY 01/14/21 08/24/22 History Albuterol Sulfate [Albuterol 2 puff INHALATION RT-Q4H PRN 08/24/22 08/24/22 History Sulfate Hfa] Artificial Tears Ointment 0.25 inch OPHTHALMIC HS 08/24/22 08/24/22 History [Lubrifresh Pm Ointment] Benzonatate [Tessalon Perles] 100 mg PO Q8H PRN 08/24/22 08/24/22 History Empagliflozin [Jardiance] 25 mg PO DAILY 08/24/22 08/24/22 History Ergocalciferol [Vitamin D2 (1250 1,250 mcg PO SA 08/24/22 08/24/22 History Mcg = 63259 Iu)] Insulin Lispro [Insulin Lispro See Protocol SQ TID 08/24/22 08/24/22 History Kwrobertpen U-100] Loratadine 10 mg PO DAILY 08/24/22 08/24/22 History Mag Hydrox/Al Hydrox/Simeth 30 ml PO TID-W/MEALS 08/24/22 08/24/22 History [Maalox] Ondansetron [Zofran] 4 mg PO Q6H PRN 08/24/22 08/24/22 History Polyvinyl Alcohol/Povidone [Clear 1 drop BOTH EYES TID 08/24/22 08/24/22 History Eyes Natural Tears Drop] Psyllium Husk 100% [Metamucil 6 gm PO DAILY 08/24/22 08/24/22 History Packet] carvediloL [Coreg] 3.125 mg PO BID 08/24/22 08/24/22 History guaiFENesin-DM 100-10MG/5ML 10 ml PO Q4H PRN 08/24/22 08/24/22 History [Robitussin DM] ALPRAZolam [Xanax] 0.25 mg PO DAILY #2 tab 08/27/22 Rx ALPRAZolam [Xanax] 0.5 mg PO HS #2 tab 08/27/22 Rx Gabapentin 600 mg PO TID #6 tab 08/27/22 Rx Nystatin 100,000 Unit/gm Powd 1 applic TOPICAL TID PRN each 08/27/22 Rx [Mycostatin Powder] cefTRIAXone [Rocephin] 2 gm IVPB Q24HR 10 Days #10 each 08/27/22 Rx Allergies Allergy/AdvReac Type Severity Reaction Status Date / Time etodolac [From [facility]] Allergy Unknown Verified 08/24/22 15:20 oxybutynin Allergy Unknown Verified 08/24/22 15:20 aspirin AdvReac ABDOMINAL Verified 08/24/22 15:20 DISCOMFORT Physical Exam Vitals: Vital Signs Temp Pulse Pulse Resp BP BP Pulse Ox 09/08/22 04:30 97.5 F L 72 18 119/68 95 09/08/22 03:09 65 22 120/62 100 09/08/22 00:04 98.1 F 69 20 109/54 97 Intake and Output 09/07/22 09/07/22 09/08/22 14:59 22:59 06:59 Other: Weight 102.058 kg Results CBC & Chem 7: 09/08/22 01:25 09/08/22 01:25 Labs: Abnormal Lab Results - Last 24 Hours (Table) 09/08/22 09/08/22 09/08/22 Range/Units 01:25 01:25 01:25 WBC 15.7 H (3.8-10.6) k/uL RBC 4.13 L (4.30-5.90) m/uL Hgb 12.7 L (13.0-17.5) gm/dL Hct 37.9 L (39.0-53.0) % RDW 15.8 H (11.5-15.5) % Neutrophils # 13.2 H (1.3-7.7) k/uL Sodium 133 L (137-145) mmol/L Potassium 5.4 H (3.5-5.1) mmol/L Chloride 94 L (98-107) mmol/L BUN 32 H (9-20) mg/dL Creatinine 1.46 H (0.66-1.25) mg/dL Glucose 262 H (74-99) mg/dL Troponin I 0.051 H* (0.000-0.034) ng/mL
[2022-09-08 06:13] LABS: Glucose,Whole Blood 239 mg/dL (70-110)
[2022-09-08] MEDS: INSULIN ASPART (NovoLOG) 100 UNIT/ML VIAL SQ SCH ×4 (06:57→21:37)
[2022-09-08] MEDS: HEPARIN SODIUM,PORCINE/PF 5,000 UNIT/0.5 ML SYRINGE SQ SCH ×2 (08:18→16:08)
--- NOTE | 2022-09-08 08:51 | XR ---
EXAMINATION TYPE: XR chest 1V portable DATE OF EXAM: 09/08/2022 CLINICAL HISTORY: Difficulty breathing and pneumonia. TECHNIQUE: Single AP portable upright view of the chest is obtained. COMPARISON: Chest x-ray from August 24, 2022 FINDINGS: There is worsening right basilar opacity. Patchy left basilar opacity redemonstrated. Stab le mild cardiomegaly. Patient remains rotated to the right. Osseous structures are intact. IMPRESSION: Worsening right basilar acute infiltrate and/or atelectasis.
[2022-09-08] MEDS ORDERED: BENZOCAINE 20 % GEL 11.9 GM TUBE MM PRN (10:53)
[2022-09-08] MEDS ORDERED: bisacodyL 10 MG SUPP RECTAL PRN (10:53)
[2022-09-08 12:14] LABS: Glucose,Whole Blood 239 mg/dL (70-110)
--- NOTE | 2022-09-08 12:37 | P.CNPUL ---
History of Present Illness Consult date: 09/08/22 Requesting physician: Rosemarie Cordero Reason for consult: pneumonia Chief complaint: Altered mental status History of present illness: This is a 74-year-old white male who was a transoral yesterday from [facility]. Apparently the patient was sent from [facility] facility to the hospital with altered mental status. Patient apparently had increased sleepiness and upon his initial evaluation he was noted to have O2 saturation of 88-90% on 2 L nasal cannula. Patient also had a fever, abnormal labs including creatinine of 1.4, leukocytosis with WBC count of 18.8, he tested negative for COVID-19 infection. His urinalysis revealed rare bacteria. CT of the head showed no acute process. CT of the chest showed multifocal areas of pneumonia. CT of abdomen and pelvis demonstrated no acute findings. Patient was given vancomycin and Zosyn, and he was transferred to [facility] for further evaluation. The patient himself is not a great historian, however looking at the chest x-ray on this admission I could clearly see that he has significant right lower lobe atelectasis possible pneumonia, I had no access to review the CT of the chest which was done at [place]. Labs in our infusion showed WBC count of 15.7 hemoglobin of 12.7. And he had abnormal creatinine of 1.46. Other labs were basically nondiagnostic. Looking at recent urinalysis from the last admission dated 08/24/2022, apparently the patient had recurrent urinary tract infections and the last one was secondary to E. coli and Enterobacter aerogenes, both were sensitive to Zosyn, and the patient did indeed go on Zosyn and apparently was given a dose of vancomycin pulmonary-bland and symptoms bland, the patient has intermittent cough, cough is slightly productive with yellowish phlegm, no hemoptysis no chest pain. On physical examination he sounded fairly clear. He had no temp, and he was on 6 L nasal cannula with O2 sats of 95% Review of Systems Constitutional: Negative except for low-grade fever supposedly while he was at [facility] HEENT: Negative Pulmonary: Intermittent cough, some wheezing, cough is productive with yellow phlegm Cardiac: Negative GI: Negative Genitourinary chronic indwelling Altman catheter and recurrent urinary tract infections last one was only a few weeks ago. Musculoskeletal: Negative Neurologic: Negative Endocrine: Negative Hematologic: Negative Psychiatric: Negative Skin: Negative patient stated that he had decubitus ulcers which I could not visualize, on this admission Past Medical History Past Medical History: COPD, CVA/TIA, Diabetes Mellitus, Deep Vein Thrombosis (DVT), GERD/Reflux, Hypertension, Myocardial Infarction (MS), Prostate Disorder, Pulmonary Embolus (PE), Sleep Apnea/CPAP/BIPAP, Thyroid Disorder Additional Past Medical History / Comment(s): Morbid obesity, obstructive sleep apnea uses CPAP-uses O2 at 5 L during night with cpap, uses 3 liters nasal cannula at home continuous, SOB,history of peripheral neuropathy severe associated related to diabetes mellitus, gait dysfunction and frequent falls- uses w/c-able to stand to transfer, chronic back pain, gout, BPH, TIA/CVA-loyda arm and leg weakness, previous history of C. diff colitis back in 2 011,hypothyroidism,colon polyps, per speech is garbled/slurred which is the residual from old stroke Last Myocardial Infarction Date:: 2010 History of Any Multi-Drug Resistant Organisms: None Reported Date of last positivie culture/infection: None MDRO Source:: None Past Surgical History: Hernia Repair Additional Past Surgical History / Comment(s): hiatal hernia repair x 2, umbilical hernia repair,2nd digit rt hand amputated Past Anesthesia/Blood Transfusion Reactions: No Reported Reaction Past Psychological History: Bipolar, Depression, PTSD Smoking Status: Never smoker Past Alcohol Use History: None Reported Past Drug Use History: None Reported - Past Family History Father Family Medical History: Cancer Additional Family Medical History / Comment(s): lung Mother Family Medical History: Cancer Additional Family Medical History / Comment(s): bladder Medications and Allergies Home Medications Medication Instructions Recorded Confirmed Type Finasteride [Proscar] 5 mg PO DAILY 12/02/14 09/08/22 History Levothyroxine Sodium [Synthroid] 50 mcg PO HS 12/02/14 09/08/22 History Sertraline [Zoloft] 200 mg PO DAILY 12/02/14 09/08/22 History Tamsulosin [Flomax] 0.8 mg PO HS 12/02/14 09/08/22 History allopurinoL [Zyloprim] 100 mg PO BID 12/02/14 09/08/22 History Pantoprazole Sodium [Protonix] 40 mg PO DAILY 10/21/18 09/08/22 History Fluticasone/Vilanterol [Breo 1 puff INHALATION RT-DAILY 07/03/20 09/08/22 His tory Ellipta 100-25 Mcg Inhaler] Magnesium Hydroxide [Milk of 2,400 mg PO Q48H PRN 07/03/20 09/08/22 History Magnesia] Sennosides/Docusate Sodium [Senna 1 tab PO DAILY 07/03/20 09/08/22 History Plus 8.6-50 mg Tablet] Simethicone [Gas-X] 125 mg PO DAILY PRN 07/03/20 09/08/22 History bisacodyL [Dulcolax] 10 mg RECTAL Q72H PRN 07/03/20 09/08/22 History carBAMazepine [TEGretol] 200 mg PO TID 07/03/20 09/08/22 History Atorvastatin [Lipitor] 40 mg PO HS 01/14/21 09/08/22 History Clopidogrel Bisulfate [Plavix] 75 mg PO DAILY 01/14/21 09/08/22 History INSULIN LISPRO (humaLOG) [humaLOG] 14 unit SQ DAILY 01/14/21 09/08/22 History Insulin Glargine,Hum.rec.anlog 55 unit SQ DAILY 01/14/21 09/08/22 History [Semglee Pen] Ziprasidone [Geodon] 20 mg PO TID 01/14/21 09/08/22 History buPROPion XL [Wellbutrin XL] 300 mg PO DAILY 01/14/21 09/08/22 History lisinopriL [Prinivil] 20 mg PO DAILY 01/14/21 09/08/22 History Albuterol Sulfate [Albuterol 2 puff INHALATION RT-Q4H PRN 08/24/22 09/08/22 History Sulfate Hfa] Artificial Tears Ointment 0.25 inch OPHTHALMIC HS 08/24/22 09/08/22 History [Lubrifresh Pm Ointment] Benzonatate [Tessalon Perles] 100 mg PO Q8H PRN 08/24/22 09/08/22 History Empagliflozin [Jardiance] 25 mg PO DAILY 08/24/22 09/08/22 History Ergocalciferol [Vitamin D2 (1250 1,250 mcg PO SA 08/24/22 09/08/22 History Mcg = 99561 Iu)] Insulin Lispro [Insulin Lispro See Protocol SQ TID 08/24/22 09/08/22 History Kwikpen U-100] Loratadine 10 mg PO DAILY 08/24/22 09/08/22 History Mag Hydrox/Al Hydrox/Simeth 30 ml PO TID-W/MEALS 08/24/22 09/08/22 History [Maalox] Ondansetron [Zofran] 4 mg PO Q6H PRN 08/24/22 09/08/22 History Polyvinyl Alcohol/Povidone [Clear 1 drop BOTH EYES TID 08/24/22 09/08/22 History Eyes Natural Tears Drop] Psyllium Husk 100% [Metamucil 6 gm PO DAILY 08/24/22 09/08/22 History Packet] carvediloL [Coreg] 3.125 mg PO BID 08/24/22 09/08/22 History guaiFENesin-DM 100-10MG/5ML 10 ml PO Q4H PRN 08/24/22 09/08/22 History [Robitussin DM] ALPRAZolam [Xanax] 0.25 mg PO DAILY #2 tab 08/27/22 09/08/22 Rx ALPRAZolam [Xanax] 0.5 mg PO HS #2 tab 08/27/22 09/08/22 Rx Gabapentin 600 mg PO TID #6 tab 08/27/22 09/08/22 Rx Acetaminophen [Tylenol 8 Hour] 650 mg PO Q6H PRN 09/08/22 09/08/22 History Hydrocortisone [Anusol-Hc] 1 applic RECTAL Q6H PRN 09/08/22 09/08/22 History Allergies Allergy/AdvReac Type Severity Reaction Status Date / Time etodolac [From [facility]] Allergy Unknown Verified 09/08/22 11:38 oxybutynin Allergy Unknown Verified 09/08/22 11:38 aspirin AdvReac ABDOMINAL Verified 09/08/22 11:38 DISCOMFORT Physical Exam Vitals: Vital Signs Temp Pulse Pulse Resp BP BP Pulse Ox 09/08/22 09:44 95 09/08/22 08:16 98.2 F 70 18 114/66 94 L 09/08/22 04:30 97.5 F L 72 18 119/68 95 09/08/22 03:09 65 22 120/62 100 09/08/22 00:04 98.1 F 69 20 109/54 97 Intake and Output 09/07/22 09/08/22 09/08/22 22:59 06:59 14:59 Output Total 300 Balance -300 Output: Urine 300 Other: Voiding Method Indwelling Catheter Indwelling Catheter Weight 102.058 kg Physical Exam: Revealed a 72-year-old white male in no distress Head: Atraumatic normocephalic. HEENT:[Neck is supple.] [No neck masses.] [No thyromegaly.] [No JVD.] Chest: [Mostly diminished breath sounds at the right base with very minimal crackles left side is clear Cardiac Exam: [Normal S1 and S2, no S3 gallop, no murmur.] Abdomen: [Soft, nontender, no megaly, no rebound, no guarding, normal bowel sounds.] Extremities: [No clubbing, no edema, no cyanosis.] Neurological Exam: [No focal neurologic deficit.] Alert and oriented 3 Psychiatric: Normal mood affect and normal mental status exam. Skin: No rashes however I could not visualize his buttock area as the patient could not turn enough for me to visualize. Results - Laboratory Findings CBC and BMP: 09/08/22 01:25 09/08/22 01:25 Abnormal lab findings: Abnormal Labs 09/08/22 09/08/22 09/08/22 01:25 01:25 01:25 WBC 15.7 H RBC 4.13 L Hgb 12.7 L Hct 37.9 L RDW 15.8 H Neutrophils # 13.2 H Sodium 133 L Potassium 5.4 H Chloride 94 L BUN 32 H Creatinine 1.46 H Glucose 262 H POC Glucose (mg/dL) Troponin I 0.051 H* 09/08/22 09/08/22 06:11 12:09 WBC RBC Hgb Hct RDW Neutrophils # Sodium Potassium Chloride BUN Creatinine Glucose POC Glucose (mg/dL) 239 H 239 H Troponin I - Diagnostic Findings Chest x-ray: image reviewed (As noted in HPI) Assessment and Plan Assessment: Impression: Chronic hypoxic respiratory failure Hospital-acquired pneumonia is suspected, patient was recently in the hospital for gram-negative bacteremia and urinary tract infection with positive cultures for Enterobacter and for E. coli. Recurrent urinary tract infection and sepsis secondary to chronic indwelling Altman catheter, patient had urinary catheter related sepsis. Acute sepsis, sources could be urine, pulmonary/pneumonia or could be decubitus ulcers from his buttock area. Cultures are pending including blood cultures, urine cultures, sputum cultures, and consider cultures from sacral decubitus. Acute leukocytosis secondary to above History of COPD, presently inactive Acute kidney injury most likely secondary to sepsis last creatinine on 08/27 was 1.07 presently 1.46. Multiple comorbidities including benign essential hypertension, type 2 diabetes, history of CVA/TIA, history of DVT, and history of coronary artery disease. History of pulmonary embolism, and history of obstructive sleep apnea syndrome. Recommendation: Continue antibiotics empirically, patient is receiving Zosyn, I see no need for vancomycin at this point. Continue bronchodilators although his COPD is presently inactive. Continue cardiac meds as taken at home. Continue levothyroxine. Check cultures including blood and urine and sputum Continue GI and DVT prophylaxis We will continue to follow. Time with Patient: Greater than 30
[2022-09-08 13:31] LABS: Basophils # (A) 0.1 k/uL (0-0.2); Basophils % (A) 1 %; Eosinophils # (A) 0.1 k/uL (0-0.7); Eosinophils % (A) 1 %; HCT 38.6 % (39.0-53.0); HGB 12.7 gm/dL (13.0-17.5); Lymphocytes # (A) 1.4 k/uL (1.0-4.8); Lymphocytes % (A) 13 %; MCH 30.6 pg (25.0-35.0); MCHC 32.9 g/dL (31.0-37.0); MCV 93.2 fL (80.0-100.0); Monocytes # (A) 0.3 k/uL (0-1.0); Monocytes % (A) 3 %; Neutrophils # (A) 8.8 k/uL (1.3-7.7); Neutrophils % (A) 81 %; Platelet Count 158 k/uL (150-450); RBC 4.14 m/uL (4.30-5.90); RDW 15.8 % (11.5-15.5); WBC 10.8 k/uL (3.8-10.6)
[2022-09-08] MEDS: BENZONATATE 100 MG CAP PO PRN (13:43)
[2022-09-08 13:49] LABS: Calcium 9.3 mg/dL (8.4-10.2); Potassium 5.1 mmol/L (3.5-5.1); Total Bilirubin 0.4 mg/dL (0.2-1.3); Total Protein 7.3 g/dL (6.3-8.2)
--- NOTE | 2022-09-08 14:01 | P.PN ---
Progress Note - Text Progress Note Date: 09/08/22 Patient was seen and examined, he is currently not having any shortness of breath, currently on 6 L with O2 saturation in the early 90s. Of note patient was recently in the hospital for gram-negative bacteremia sec to urinary tract infection with positive cultures for Enterobacter and for E. coli. Not sure if he is aspirating, I will order speech evaluation. Troponin minimally elevated, likely secondary to sepsis and pneumonia, will repeat.
[2022-09-08] MEDS: GABAPENTIN 300 MG CAP PO SCH ×2 (16:08→21:36)
[2022-09-08] MEDS: carBAMazepine 200 MG TAB PO SCH ×2 (16:08→21:36)
[2022-09-08] MEDS: ZIPRASIDONE 20 MG CAP PO SCH ×2 (16:08→21:37)
[2022-09-08] MEDS: carvediloL 3.125 MG TAB PO SCH (17:03)
[2022-09-08 17:04] LABS: Glucose,Whole Blood 163 mg/dL (70-110)
[2022-09-08 20:22] LABS: Glucose,Whole Blood 160 mg/dL (70-110)
[2022-09-08] MEDS: ALPRAZolam 0.5 MG TAB PO SCH (21:36)
[2022-09-08] MEDS: TAMSULOSIN 0.4 MG CAP.ER.24H PO SCH (21:36)
[2022-09-08] MEDS: allopurinoL 100 MG TAB PO SCH (21:36)
[2022-09-08] MEDS: ATORVASTATIN 40 MG TAB PO SCH (21:37)
[2022-09-08] MEDS: LEVOTHYROXINE 50 MCG TAB PO SCH (21:37)
[2022-09-09] MEDS: PIPERACILLIN-TAZOBACTAM 3.375 GM in SODIUM CHLORIDE 0.9% 100 ML IVPB SCH ×4 (00:09→23:41)
[2022-09-09] MEDS: HEPARIN SODIUM,PORCINE/PF 5,000 UNIT/0.5 ML SYRINGE SQ SCH ×4 (00:09→23:41)
[2022-09-09] MEDS ORDERED: AZITHROMYCIN 500 MG in SODIUM CHLORIDE 0.9% 250 ML IVPB SCH (03:00)
[2022-09-09 06:19] LABS: Glucose,Whole Blood 175 mg/dL (70-110)
[2022-09-09] MEDS: INSULIN ASPART (NovoLOG) 100 UNIT/ML VIAL SQ SCH ×4 (06:58→20:34)
[2022-09-09] MEDS: PANTOPRAZOLE 40 MG TABLET PO SCH (06:58)
[2022-09-09] MEDS: carvediloL 3.125 MG TAB PO SCH ×2 (06:58→16:50)
--- NOTE | 2022-09-09 07:52 | XR ---
EXAMINATION TYPE: XR chest 2V DATE OF EXAM: 09/09/2022 COMPARISON: 09/08/2022 HISTORY: 72-year-old male follow-up pneumonia TECHNIQUE: AP and lateral views FINDINGS: Limited by low lung volumes and lordotic positioning. Heart appears mildly enlarged. Mild interstitia l prominence may be slightly increased. There appears to be asymmetric elevation of the right hemidi aphragm with patchy right basilar opacity. IMPRESSION: 1. Limited by hypoventilatory changes and lordotic positioning. 2. Mild cardiomegaly. Possible mild pulmonary vascular congestion. Clinically correlate. 3. There appears to be ongoing asymmetric elevation of the right hemidiaphragm. If concern for hemidi aphragmatic paralysis, a fluoroscopic sniff test could be performed. 4. Patchy right basilar atelectasis versus developing infiltrate.
[2022-09-09 08:02] LABS: HCT 36.9 % (39.0-53.0); HGB 11.8 gm/dL (13.0-17.5); MCV 93.8 fL (80.0-100.0); Mean Platelet Volume 8.4; Platelet Count 138 k/uL (150-450); RBC 3.94 m/uL (4.30-5.90); WBC 9.8 k/uL (3.8-10.6)
[2022-09-09] MEDS: FINASTERIDE 5 MG TAB PO SCH (08:27)
[2022-09-09] MEDS: ALPRAZolam 0.25 MG TAB PO SCH (08:28)
[2022-09-09] MEDS: CLOPIDOGREL 75 MG TAB PO SCH (08:28)
[2022-09-09] MEDS: SERTRALINE 100 MG TAB PO SCH (08:28)
[2022-09-09] MEDS: GABAPENTIN 300 MG CAP PO SCH ×3 (08:29→20:37)
[2022-09-09] MEDS: allopurinoL 100 MG TAB PO SCH ×2 (08:29→20:36)
[2022-09-09] MEDS: carBAMazepine 200 MG TAB PO SCH ×3 (08:29→20:46)
[2022-09-09] MEDS: buPROPion XL 300 MG TAB.ER.24H PO SCH (08:31)
[2022-09-09] MEDS: ZIPRASIDONE 20 MG CAP PO SCH ×3 (08:32→22:13)
[2022-09-09 08:34] LABS: Calcium 8.8 mg/dL (8.4-10.2); Potassium 4.8 mmol/L (3.5-5.1)
[2022-09-09] MEDS: SYMBICORT 80-4.5 MCG INHALER INHALATION SCH ×2 (08:59→20:45)
[2022-09-09] MEDS ORDERED: lisinopriL 20 MG TAB PO SCH (09:00)
[2022-09-09 11:40] LABS: Glucose,Whole Blood 310 mg/dL (70-110)
--- NOTE | 2022-09-09 12:39 | P.PN ---
Subjective Progress Note Date: 09/09/22 Principal diagnosis: Fever. This is a 74-year-old white male who was a transoral yesterday from [facility]. Apparently the patient was sent from [facility] facility to the hospital with altered mental status. Patient apparently had increased sleepiness and upon his initial evaluation he was noted to have O2 saturation of 88-90% on 2 L nasal cannula. Patient also had a fever, abnormal labs including creatinine of 1.4, leukocytosis with WBC count of 18.8, he tested negative for COVID-19 infection. His urinalysis revealed rare bacteria. CT of the head showed no acute process. CT of the chest showed multifocal areas of pneumonia. CT of abdomen and pelvis demonstrated no acute findings. Patient was given vancomycin and Zosyn, and he was transferred to [facility] for further evaluation. The patient himself is not a great historian, however looking at the chest x-ray on this admission I could clearly see that he has significant right lower lobe atelectasis possible pneumonia, I had no access to review the CT of the chest which was done at [place]. Labs in our infusion showed WBC count of 15.7 hemoglobin of 12.7. And he had abnormal creatinine of 1.46. Other labs were basically nondiagnostic. Looking at recent urinalysis from the last admission dated 08/24/2022, apparently the patient had recurrent urinary tract infections and the last one was secondary to E. coli and Enterobacter aerogenes, both were sensitive to Zosyn, and the patient did indeed go on Zosyn and apparently was given a dose of vancomycin pulmonary-bland and symptoms bland, the patient has intermittent cough, cough is slightly productive with yellowish phlegm, no hemoptysis no chest pain. On physical examination he sounded fairly clear. He had no temp, and he was on 6 L nasal cannula with O2 sats of 95% Progress note dated 09/09/2022. The patient was seen in consultation yesterday, as a transfer from an outside hospital. He apparently was transferred from an extended care facility to the outside hospital, for mental status changes, then transferred down here because of fever, and leukocytosis. Currently, the patient's on oxygen at 5 L by nasal cannula. No IV fluids. He is receiving Zosyn as an antibiotic. White count 9.8, hemoglobin 11.8, hematocrit 36.9, platelet count 138,000. Sodium 135, potassium 4.8, chlorides 99, CO2 27, BUN 29, creatinine 1.09. His most recent vital signs are very stable with a temperature 98.1, heart rate 64, respiratory rate 16, blood pressure 105/61, mean 75, and saturations 96-97% on 5 L. Chest x-ray shows either atelectasis or infiltrate at the right lung base. Objective - Vital Signs Vital signs: Vital Signs Temp 98.1 F 09/09/22 11:55 Pulse 64 09/09/22 11:55 Resp 16 09/09/22 11:55 BP 105/61 09/09/22 11:55 Pulse Ox 97 09/09/22 11:55 FiO2 Intake & Output 09/08/22 09/09/22 09/09/22 18:59 06:59 18:59 Intake Total 236 240 Output Total 625 1250 Balance -389 -1250 240 Intake: Oral 236 240 Output: Urine 625 1250 Uretheral (Altman) 900 Other: Voiding Method Indwelling Catheter Indwelling Catheter Indwelling Catheter # Bowel Movements 1 - Exam No acute distress, oriented 3. Currently on 5 L of oxygen. Saturations are very reasonable. HEENT examination is grossly unremarkable. Neck supple. Full range of motion. No adenopathy thyromegaly or neck vein distention. Cardiovascular examination reveals regular rhythm rate. S1-S2 normal. No S3 or S4. No discernible murmur noted. Heart rate 64 bpm. Lungs reveal minimal rhonchi and crackles at the right base. No wheezes. Breath sounds otherwise equal. Saturations are very reasonable. Abdomen soft bowel sounds are heard. No masses or tenderness. Extremities are intact. No cyanosis clubbing or edema. Skin is without rash or lesion. Neurologic examination is brief but nonfocal. - Labs CBC & Chem 7: 09/09/22 07:50 09/09/22 07:50 Labs: Abnormal Lab Results - Last 24 Hours (Table) 09/08/22 09/08/22 09/08/22 Range/Units 10:32 13:02 13:02 WBC 10.8 H (3.8-10.6) k/uL RBC 4.14 L (4.30-5.90) m/uL Hgb 12.7 L (13.0-17.5) gm/dL Hct 38.6 L (39.0-53.0) % RDW 15.8 H (11.5-15.5) % Plt Count (150-450) k/uL Neutrophils # 8.8 H (1.3-7.7) k/uL Sodium 136 L (137-145) mmol/L BUN 32 H (9-20) mg/dL Creatinine 1.36 H (0.66-1.25) mg/dL Glucose 232 H (74-99) mg/dL POC Glucose (mg/dL) (70-110) mg/dL Procalcitonin 0.35 H (0.02-0.09) ng/mL 09/08/22 09/08/22 09/09/22 Range/Units 17:01 20:20 06:05 WBC (3.8-10.6) k/uL RBC (4.30-5.90) m/uL Hgb (13.0-17.5) gm/dL Hct (39.0-53.0) % RDW (11.5-15.5) % Plt Count (150-450) k/uL Neutrophils # (1.3-7.7) k/uL Sodium (137-145) mmol/L BUN (9-20) mg/dL Creatinine (0.66-1.25) mg/dL Glucose (74-99) mg/dL POC Glucose (mg/dL) 163 H 160 H 175 H (70-110) mg/dL Procalcitonin (0.02-0.09) ng/mL 09/09/22 09/09/22 09/09/22 Range/Units 07:50 07:50 11:30 WBC (3.8-10.6) k/uL RBC 3.94 L (4.30-5.90) m/uL Hgb 11.8 L (13.0-17.5) gm/dL Hct 36.9 L (39.0-53.0) % RDW 16.0 H (11.5-15.5) % Plt Count 138 L (150-450) k/uL Neutrophils # (1.3-7.7) k/uL Sodium 135 L (137-145) mmol/L BUN 29 H (9-20) mg/dL Creatinine (0.66-1.25) mg/dL Glucose 302 H (74-99) mg/dL POC Glucose (mg/dL) 310 H (70-110) mg/dL Procalcitonin (0.02-0.09) ng/mL Assessment and Plan Assessment: Acute hypoxemic respiratory failure secondary to possible right lower lobe pneumonia. Recent history of gram-negative bacteremia secondary to urinary tract infection, with positive cultures to Enterobacter and Escherichia coli. Acute sepsis, likely secondary to right lower lobe pneumonia. Leukocytosis, secondary to infection. History of COPD, inactive. Acute kidney injury. History of hypertension. History of diabetes mellitus, type II. History of CVA/TIA. History of DVT. History of CAD. History of pulmonary embolism. History of obstructive sleep apnea syndrome. Plan: Plan dated 09/09/2022. The patient is receiving Zosyn empirically. Chest x-ray shows some patchy infiltrate at the right lower lobe, versus atelectasis. We'll continue bronchodilators and oxygen therapy. Continue home medications. Continue with GI and DVT prophylaxis. Labs x-rays and medications are reviewed. We will continue to follow make recommendations along the way. Prognosis is guarded. Time with Patient: Less than 30
--- NOTE | 2022-09-09 13:38 | P.PN ---
Subjective Progress Note Date: 09/09/22 Patient is a 72-year-old male with COPD, chronic hypoxic respiratory failure on 3 L nasal cannula, diabetes mellitus type 2, valvular disease, and hypertension who transferred from [facility] due to concerns of multifocal pneumonia. He initially presented there with confusion. At [facility] underwent a significant evaluation. Head CT was unremarkable, CT chest showed multifocal pneumonia. Initial laboratory analysis was remarkable for white blood cell count of 15.7, sodium 132, potassium 5.4, BUN 32, creatinine 1.46 (up from baseline of 1.1) an elevated troponin at 0.051. He was started on IV antibiotics and Zosyn as he is a resident at skilled nursing facility. He was a dmitted to the [facility]. He was continued on Zithromax and Zosyn. Pulmonary was consulted. Patient seen and examined at bedside. He reports he is feeling fine today he denies any shortness of breath, chest pain, nausea. Vital signs reviewed General: nontoxic, no distress, appears at stated age Cardiovascular: S1S2 reg, no murmur, positive posterior tibial pulse bilateral, Lungs: Coarse breath sounds bilateral, no rhonchi, no rales , no accessory muscle use Abdominal: soft, nontender to palpation, no guarding, no appreciable organomegaly Ext: no gross muscle atrophy, no edema, no contractures Neuro: CN II-XI grossly intact, no focal neuro deficits Psych: Alert,jovial affect, oriented to self and intermittently oriented to place initially thought he was in the skilled nursing still within 3 oriented to being in the hospital. Assessment: Pneumonia, patient recently treated for gram-negative bacteremia and urinary tract infection, healthcare associated, need for broad-spectrum antibiotics and possible gram-negative infection - Did meet sepsis criteria on admission via the qSOFA criteria with altered mentation Acute on Chronic hypoxic respiratory failure Elevated troponin, type II non-STEMI due to pneumonia with sepsis Sacral ulcer, present on admission COPD without acute exacerbation Diabetes mellitus type 2 Hypertension Chronic: Obstructive sleep apnea Prior DVT Coronary artery disease Enlarged prostate Prior CVA with bilateral arm and leg weakness History of C. diff in the past Hypothyroidism Imaging: Chest x-ray as reviewed by myself shows poor inspiratory effort, right basilar atelectasis versus infiltrate Data Review: Vital signs reviewed temperature 98.2, pulse 77, respirations 20, blood pressure 126/65, O2 sat 96% on 6 L nasal cannula Laboratory analysis reviewed from today and weight blood flow, has normalized at 9.8, platelets 138, sodium 135, BUN 29, creatinine back to baseline at 1.09, -Legionella urine antigen negative Plan: blood sugar was elevated at 310 however he missed his long-acting insulin yesterday. Of 30 units at night. 10 scale insulin. Follow blood sugars. -Consult wound care and-await sputum culture -Pulmonary no reviewed: Continue with Zosyn. -Patient has completed course of Zithromax, continue with Zosyn 3.375 g every 8 hours IV day #2 -Continue with home medications including allopurinol 100 mg twice daily, Lipitor 40 mg daily, Tegretol 200 mg 3 times daily, Coreg 3.125 mg twice daily, Plavix 75 mg daily, Proscar 5 mg daily, gabapentin 600 mg 3 times daily, Synthroid 50 g at night, Protonix 40 mg daily, Zoloft 200 mg daily, Flomax 0.8 mg at night, Geodon 20 mg 3 times daily - Hold lisinopril secondary to GARETT -Given illness and need for Zosyn will check CBC and BMP both today and morning. DVT prophylaxis: Heparin Anticipated discharge date: [facility] Clinical Course Anticipated discharge place: [facility] Clinical Course This dictation was prepared using [employer] voice recognition software. Though every attempt is made to correct errors during during dictation some may still exist. Objective - Vital Signs Vital signs: Vital Signs Temp 98.6 F 09/09/22 04:20 Pulse 65 09/09/22 04:20 Resp 18 09/09/22 04:20 BP 132/69 09/09/22 04:20 Pulse Ox 94 L 09/09/22 04:20 FiO2 Intake & Output 09/08/22 09/09/22 09/09/22 18:59 06:59 18:59 Intake Total 236 Output Total 625 1250 Balance -389 -1250 Intake: Oral 236 Output: Urine 625 1250 Uretheral (Altman) 900 Other: Voiding Method Indwelling Catheter Indwelling Catheter # Bowel Movements 1 - Labs CBC & Chem 7: 09/09/22 07:50 09/09/22 07:50 Labs: Abnormal Lab Results - Last 24 Hours (Table) 09/08/22 09/08/22 09/08/22 Range/Units 10:32 12:09 13:02 WBC 10.8 H (3.8-10.6) k/uL RBC 4.14 L (4.30-5.90) m/uL Hgb 12.7 L (13.0-17.5) gm/dL Hct 38.6 L (39.0-53.0) % RDW 15.8 H (11.5-15.5) % Neutrophils # 8.8 H (1.3-7.7) k/uL Sodium (137-145) mmol/L BUN (9-20) mg/dL Creatinine (0.66-1.25) mg/dL Glucose (74-99) mg/dL POC Glucose (mg/dL) 239 H (70-110) mg/dL Procalcitonin 0.35 H (0.02-0.09) ng/mL 09/08/22 09/08/22 09/08/22 Range/Units 13:02 17:01 20:20 WBC (3.8-10.6) k/uL RBC (4.30-5.90) m/uL Hgb (13.0-17.5) gm/dL Hct (39.0-53.0) % RDW (11.5-15.5) % Neutrophils # (1.3-7.7) k/uL Sodium 136 L (137-145) mmol/L BUN 32 H (9-20) mg/dL Creatinine 1.36 H (0.66-1.25) mg/dL Glucose 232 H (74-99) mg/dL POC Glucose (mg/dL) 163 H 160 H (70-110) mg/dL Procalcitonin (0.02-0.09) ng/mL 09/09/22 Range/Units 06:05 WBC (3.8-10.6) k/uL RBC (4.30-5.90) m/uL Hgb (13.0-17.5) gm/dL Hct (39.0-53.0) % RDW (11.5-15.5) % Neutrophils # (1.3-7.7) k/uL Sodium (137-145) mmol/L BUN (9-20) mg/dL Creatinine (0.66-1.25) mg/dL Glucose (74-99) mg/dL POC Glucose (mg/dL) 175 H (70-110) mg/dL Procalcitonin (0.02-0.09) ng/mL
[2022-09-09] MEDS: LACTOBACILLUS ACIDOPH & BULGAR 1 EACH PACKET PO SCH ×4 (15:02→22:13)
[2022-09-09] MEDS: guaiFENesin-DM 100-10MG/5ML 10 ML CUP PO PRN (15:05)
[2022-09-09 16:19] LABS: Glucose,Whole Blood 306 mg/dL (70-110)
[2022-09-09 19:54] LABS: Glucose,Whole Blood 203 mg/dL (70-110)
[2022-09-09] MEDS: ACETAMINOPHEN TAB 325 MG TAB PO PRN (20:35)
[2022-09-09] MEDS: TAMSULOSIN 0.4 MG CAP.ER.24H PO SCH (20:36)
[2022-09-09] MEDS: ATORVASTATIN 40 MG TAB PO SCH (20:36)
[2022-09-09] MEDS: ALPRAZolam 0.5 MG TAB PO SCH (20:37)
[2022-09-09] MEDS: LEVOTHYROXINE 50 MCG TAB PO SCH (20:37)
[2022-09-10 06:11] LABS: Glucose,Whole Blood 229 mg/dL (70-110)
[2022-09-10] MEDS: INSULIN ASPART (NovoLOG) 100 UNIT/ML VIAL SQ SCH ×2 (06:17→12:06)
[2022-09-10] MEDS: PANTOPRAZOLE 40 MG TABLET PO SCH (06:17)
[2022-09-10] MEDS: carvediloL 3.125 MG TAB PO SCH (06:17)
[2022-09-10] MEDS: BENZONATATE 100 MG CAP PO PRN (07:06)
[2022-09-10] MEDS: ACETAMINOPHEN TAB 325 MG TAB PO PRN (07:06)
[2022-09-10 07:32] LABS: HCT 38.4 % (39.0-53.0); HGB 12.4 gm/dL (13.0-17.5); Hypochromasia Slight; MCH 30.8 pg (25.0-35.0); MCHC 32.3 g/dL (31.0-37.0); MCV 95.2 fL (80.0-100.0); Mean Platelet Volume 7.6; Platelet Count 145 k/uL (150-450); RBC 4.04 m/uL (4.30-5.90); RDW 15.8 % (11.5-15.5); WBC 4.5 k/uL (3.8-10.6)
[2022-09-10 07:47] LABS: Calcium 8.9 mg/dL (8.4-10.2); Potassium 4.8 mmol/L (3.5-5.1)
[2022-09-10] MEDS: SYMBICORT 80-4.5 MCG INHALER INHALATION SCH (08:57)
[2022-09-10] MEDS: HEPARIN SODIUM,PORCINE/PF 5,000 UNIT/0.5 ML SYRINGE SQ SCH (09:53)
[2022-09-10] MEDS: CLOPIDOGREL 75 MG TAB PO SCH (09:54)
[2022-09-10] MEDS: allopurinoL 100 MG TAB PO SCH (09:54)
[2022-09-10] MEDS: buPROPion XL 300 MG TAB.ER.24H PO SCH (09:54)
[2022-09-10] MEDS: FINASTERIDE 5 MG TAB PO SCH (09:54)
[2022-09-10] MEDS: SERTRALINE 100 MG TAB PO SCH (09:54)
[2022-09-10] MEDS: carBAMazepine 200 MG TAB PO SCH (09:54)
[2022-09-10] MEDS: PIPERACILLIN-TAZOBACTAM 3.375 GM in SODIUM CHLORIDE 0.9% 100 ML IVPB SCH (09:54)
[2022-09-10] MEDS: LACTOBACILLUS ACIDOPH & BULGAR 1 EACH PACKET PO SCH (09:54)
[2022-09-10] MEDS: GABAPENTIN 300 MG CAP PO SCH (09:54)
[2022-09-10] MEDS: ALPRAZolam 0.25 MG TAB PO SCH (09:54)
--- NOTE | 2022-09-10 10:26 | P.DS ---
Providers Date of admission: 09/08/22 02:43 Expected date of discharge: 09/10/22 Attending physician: Rosemarie Cordero MD Consults: 09/08/22 02:42 Consult Physician Routine Consulting Provider: Zachary Obrien Consult Reason/Comments: multiple focal pneumonia Do you want consulting provider notified?: Yes Primary care physician: Lori Schultz Hospital Course: Discharge Diagnosis: Multifocal pneumonia, patient being discharged back to [facility] on Augmentin 875/125 mg tablets every 12 hours for an additional 4 days to total a treatment course of 7 days of antibiotics. Patient treated with Augmentin secondary to need for broad-spectrum antibiotics due to [facility] and recent gram-negative infection. Clinically, patient is stable at this time. He has been afebrile for greater than 48 hours. Vital signs unremarkable with blood pressure 122/68, heart rate 65, respiratory rate 18, and SpO2 95% on baseline 3 L O2. Acute on chronic respiratory failure with hypoxia secondary to above, resolved patient back to baseline oxygen needs. Acute kidney injury, resolved. Leukocytosis, resolved. 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 History of C. diff in the past Hypothyroidism Hospital Course: Patient is a 72-year-old male with COPD, chronic hypoxic respiratory failure on 3 L nasal cannula, diabetes mellitus type 2, valvular disease, and hypertension who transferred from [facility] due to concerns of multifocal pneumonia. He initially presented there with confusion. At [facility] underwent a significant evaluation. Head CT was unremarkable, CT chest showed multifocal pneumonia. Initial laboratory analysis was remarkable for white blood cell count of 15.7, sodium 132, potassium 5.4, BUN 32, creatinine 1.46 (up from baseline of 1.1) an elevated troponin at 0.051. He was started on IV antibiotics and Zosyn as he is a [facility] at [facility] He was admitted to the [facility]. He was continued on Zithromax and Zosyn. Pulmonary was consulted. Patient initially requiring additional oxygen supplementation up to 6 L O2 via nasal cannula. His oxygen needs decreased and patient weaned back to baseline oxygen needs at 3 L O2 and maintaining SpO2 without any difficulties. Clinically, patient appears to be doing well and he currently denies having any complaints or needs at this time. Blood cultures showing no growth to date. Vital signs unremarkable with blood pressure 122/68, heart rate 65, respiratory rate 18, temp 97.7F, and SpO2 of 95% on baseline 3 L. Patient being discharged back to [facility] and after receiving 3 day course of IV antibiotics with Zosyn is being discharged on Augmentin 875/125 mg tablets every 12 hours for an additional 4 days for a total treatment course of 7 days of antibiotic therapy. 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 Patient seen and examined at bedside. Vital signs reviewed and stable. General: Nontoxic, no distress and appears stated age. Derm: Skin warm and dry, normal coloration for ethnicity. Head: Atraumatic, normocephalic and symmetric. Eyes: EOMs intact, no lid lag, and anicteric sclera Mouth: no lip lesions, mucus membranes moist Cardiovascular: regular rate and rhythm with normal S1S2, no murmur, positive posterior tibial pulses bilaterally, and cap refill < 2 seconds. Lungs: Respirations even, regular, and unlabored on room air. Lungs CTA bilaterally, no rhonchi, no rales, no wheezing, and no accessory muscle usage. Abdominal: soft and distended, nontender to palpation, no guarding, no appreciable organomegaly. Chronic Altman catheter in place. Ext: ROM intact. No gross muscle atrophy, no edema, bilateral lower extremity atrophy and weakness. Neuro: Speech clear, face symmetrical and CN II-XII grossly intact. GCS 15. Psych: Alert and oriented to person, place, time, and situation. Appropriate and pleasant affect. A total of 32 minutes of time were spent preparing this complex discharge summary. Pt was discharged on 09/10/22 at 10:25 AM. Patient was seen independently by Nurse Practitioner. This document was prepared using [employer] dictation software. Please allow for errors in student development specialist while rare they do occur. Darnell Chavez NP rendered care for this patient independently, reviewed the findings and plan as documented in the note above. I did not physically speak with or examine the patient on this date. Patient Condition at Discharge: Stable Plan - Discharge Summary Discharge Rx Participant: No New Discharge Prescriptions: New Amoxic-Pot Clav 875-125Mg [Augmentin 875-125] 1 tab PO Q12HR 4 Days #8 tab Lactobacillus Acidoph & Bulgar [Lactinex] 1 each PO TID packet Benzocaine 20 % Gel [Orajel] 1 applic MM Q6H PRN each PRN Reason: ORAL PAIN Continue Levothyroxine Sodium [Synthroid] 50 mcg PO HS Finasteride [Proscar] 5 mg PO DAILY Sertraline [Zoloft] 200 mg PO DAILY allopurinoL [Zyloprim] 100 mg PO BID Tamsulosin [Flomax] 0.8 mg PO HS Pantoprazole Sodium [Protonix] 40 mg PO DAILY bisacodyL [Dulcolax] 10 mg RECTAL Q72H PRN PRN Reason: Constipation carBAMazepine [TEGretol] 200 mg PO TID Fluticasone/Vilanterol [Breo Ellipta 100-25 Mcg Inhaler] 1 puff INHALATION RT-DAILY Magnesium Hydroxide [Milk of Magnesia] 2,400 mg PO Q48H PRN PRN Reason: Constipation Sennosides/Docusate Sodium [Senna Plus 8.6-50 mg Tablet] 1 tab PO DAILY Simethicone [Gas-X] 125 mg PO DAILY PRN PRN Reason: gastric bloating Atorvastatin [Lipitor] 40 mg PO HS INSULIN LISPRO (humaLOG) [humaLOG] 14 unit SQ DAILY Polyvinyl Alcohol/Povidone [Clear Eyes Natural Tears Drop] 1 drop BOTH EYES TID Ondansetron [Zofran] 4 mg PO Q6H PRN PRN Reason: Nausea And Vomiting Loratadine 10 mg PO DAILY Insulin Lispro [Insulin Lispro Kwikpen U-100] See Protocol SQ TID carvediloL [Coreg] 3.125 mg PO BID Artificial Tears Ointment [Lubrifresh Pm Ointment] 0.25 inch OPHTHALMIC HS Hydrocortisone [Anusol-Hc] 1 applic RECTAL Q6H PRN PRN Reason: ANAL INFLAMMATION Acetaminophen [Tylenol 8 Hour] 650 mg PO Q6H PRN PRN Reason: Pain ALPRAZolam [Xanax] 0.5 mg PO HS 2 Days #2 tab ALPRAZolam [Xanax] 0.25 mg PO DAILY #2 tab buPROPion XL [Wellbutrin XL] 300 mg PO DAILY Clopidogrel Bisulfate [Plavix] 75 mg PO DAILY Insulin Glargine,Hum.rec.anlog [Semglee Pen] 55 unit SQ DAILY Ziprasidone [Geodon] 20 mg PO TID Psyllium Husk 100% [Metamucil Packet] 6 gm PO DAILY Mag Hydrox/Al Hydrox/Simeth [Maalox] 30 ml PO TID-W/MEALS guaiFENesin-DM 100-10MG/5ML [Robitussin DM] 10 ml PO Q4H PRN PRN Reason: Cough Ergocalciferol [Vitamin D2 (1250 Mcg = 09561 Iu)] 1,250 mcg PO SA Empagliflozin [Jardiance] 25 mg PO DAILY Benzonatate [Tessalon Perles] 100 mg PO Q8H PRN PRN Reason: chronic cough Albuterol Sulfate [Albuterol Sulfate Hfa] 2 puff INHALATION RT-Q4H PRN PRN Reason: Shortness Of Breath Gabapentin 600 mg PO TID #6 tab Discontinued lisinopriL [Prinivil] 20 mg PO DAILY Discharge Medication List Finasteride [Proscar] 5 mg PO DAILY 12/02/14 [History] Levothyroxine Sodium [Synthroid] 50 mcg PO HS 12/02/14 [History] Sertraline [Zoloft] 200 mg PO DAILY 12/02/14 [History] Tamsulosin [Flomax] 0.8 mg PO HS 12/02/14 [History] allopurinoL [Zyloprim] 100 mg PO BID 12/02/14 [History] Pantoprazole Sodium [Protonix] 40 mg PO DAILY 10/21/18 [History] Fluticasone/Vilanterol [Breo Ellipta 100-25 Mcg Inhaler] 1 puff INHALATION RT- DAILY 07/03/20 [History] Magnesium Hydroxide [Milk of Magnesia] 2,400 mg PO Q48H PRN 07/03/20 [History] Sennosides/Docusate Sodium [Senna Plus 8.6-50 mg Tablet] 1 tab PO DAILY 07/03/20 [History] Simethicone [Gas-X] 125 mg PO DAILY PRN 07/03/20 [History] bisacodyL [Dulcolax] 10 mg RECTAL Q72H PRN 07/03/20 [History] carBAMazepine [TEGretol] 200 mg PO TID 07/03/20 [History] Atorvastatin [Lipitor] 40 mg PO HS 01/14/21 [History] Clopidogrel Bisulfate [Plavix] 75 mg PO DAILY 01/14/21 [History] INSULIN LISPRO (humaLOG) [humaLOG] 14 unit SQ DAILY 01/14/21 [History] Insulin Glargine,Hum.rec.anlog [Semglee Pen] 55 unit SQ DAILY 01/14/21 [History] Ziprasidone [Geodon] 20 mg PO TID 01/14/21 [History] buPROPion XL [Wellbutrin XL] 300 mg PO DAILY 01/14/21 [History] Albuterol Sulfate [Albuterol Sulfate Hfa] 2 puff INHALATION RT-Q4H PRN 08/24/22 [History] Artificial Tears Ointment [Lubrifresh Pm Ointment] 0.25 inch OPHTHALMIC HS 08/24/22 [History] Benzonatate [Tessalon Perles] 100 mg PO Q8H PRN 08/24/22 [History] Empagliflozin [Jardiance] 25 mg PO DAILY 08/24/22 [History] Ergocalciferol [Vitamin D2 (1250 Mcg = 15699 Iu)] 1,250 mcg PO SA 08/24/22 [History] Insulin Lispro [Insulin Lispro Kwikpen U-100] See Protocol SQ TID 08/24/22 [History] Loratadine 10 mg PO DAILY 08/24/22 [History] Mag Hydrox/Al Hydrox/Simeth [Maalox] 30 ml PO TID-W/MEALS 08/24/22 [History] Ondansetron [Zofran] 4 mg PO Q6H PRN 08/24/22 [History] Polyvinyl Alcohol/Povidone [Clear Eyes Natural Tears Drop] 1 drop BOTH EYES TID 08/24/22 [History] Psyllium Husk 100% [Metamucil Packet] 6 gm PO DAILY 08/24/22 [History] carvediloL [Coreg] 3.125 mg PO BID 08/24/22 [History] guaiFENesin-DM 100-10MG/5ML [Robitussin DM] 10 ml PO Q4H PRN 08/24/22 [History] Acetaminophen [Tylenol 8 Hour] 650 mg PO Q6H PRN 09/08/22 [History] Hydrocortisone [Anusol-Hc] 1 applic RECTAL Q6H PRN 09/08/22 [History] ALPRAZolam [Xanax] 0.25 mg PO DAILY #2 tab 09/10/22 [Rx] ALPRAZolam [Xanax] 0.5 mg PO HS 2 Days #2 tab 09/10/22 [Rx] Amoxic-Pot Clav 875-125Mg [Augmentin 875-125] 1 tab PO Q12HR 4 Days #8 tab 09/10/22 [Rx] Benzocaine 20 % Gel [Orajel] 1 applic MM Q6H PRN each 09/10/22 [Rx] Gabapentin 600 mg PO TID #6 tab 09/10/22 [Rx] Lactobacillus Acidoph & Bulgar [Lactinex] 1 each PO TID packet 09/10/22 [Rx] Follow up Appointment(s)/Referral(s): [facility] [NON-STAFF] - 1 Week Lori Schultz PAC [Primary Care Provider] - 1-2 days Srini Urrutia DO [Doctor of Osteopathic Medicine] - 1 Week Patient Instructions/Handouts: Bacterial Pneumonia (DC) Discharge Disposition: HOME SELF-CARE
--- NOTE | 2022-09-10 11:19 | P.PN ---
Subjective Progress Note Date: 09/10/22 Principal diagnosis: Fever. This is a 74-year-old white male who was a transoral yesterday from [facility]. Apparently the patient was sent from [facility] facility to the hospital with altered mental status. Patient apparently had increased sleepiness and upon his initial evaluation he was noted to have O2 saturation of 88-90% on 2 L nasal cannula. Patient also had a fever, abnormal labs including creatinine of 1.4, leukocytosis with WBC count of 18.8, he tested negative for COVID-19 infection. His urinalysis revealed rare bacteria. CT of the head showed no acute process. CT of the chest showed multifocal areas of pneumonia. CT of abdomen and pelvis demonstrated no acute findings. Patient was given vancomycin and Zosyn, and he was transferred to [facility] for further evaluation. The patient himself is not a great historian, however looking at the chest x-ray on this admission I could clearly see that he has significant right lower lobe atelectasis possible pneumonia, I had no access to review the CT of the chest which was done at [place]. Labs in our infusion showed WBC count of 15.7 hemoglobin of 12.7. And he had abnormal creatinine of 1.46. Other labs were basically nondiagnostic. Looking at recent urinalysis from the last admission dated 08/24/2022, apparently the patient had recurrent urinary tract infections and the last one was secondary to E. coli and Enterobacter aerogenes, both were sensitive to Zosyn, and the patient did indeed go on Zosyn and apparently was given a dose of vancomycin pulmonary-bland and symptoms bland, the patient has intermittent cough, cough is slightly productive with yellowish phlegm, no hemoptysis no chest pain. On physical examination he sounded fairly clear. He had no temp, and he was on 6 L nasal cannula with O2 sats of 95% Progress note dated 09/09/2022. The patient was seen in consultation yesterday, as a transfer from an outside hospital. He apparently was transferred from an extended care facility to the outside hospital, for mental status changes, then transferred down here because of fever, and leukocytosis. Currently, the patient's on oxygen at 5 L by nasal cannula. No IV fluids. He is receiving Zosyn as an antibiotic. White count 9.8, hemoglobin 11.8, hematocrit 36.9, platelet count 138,000. Sodium 135, potassium 4.8, chlorides 99, CO2 27, BUN 29, creatinine 1.09. His most recent vital signs are very stable with a temperature 98.1, heart rate 64, respiratory rate 16, blood pressure 105/61, mean 75, and saturations 96-97% on 5 L. Chest x-ray shows either atelectasis or infiltrate at the right lung base. Progress note dated 09/10/2022. The patient appears be doing relatively well. He is currently on 4 L of oxygen. He is getting saline at 10 mL an hour. He's hoping to be discharged soon, back to [place]. Labs today include a white count of 4.5, hemoglobin 12.4, hematocrit 38.4, and platelet count 145,000. Sodium 135, potassium 4.8, chlor ides 99, CO2 28, BUN 25, and creatinine 1. Glucose 217. Calcium is 8.9. Blood cultures are negative. Objective - Vital Signs Vital signs: Vital Signs Temp 98.1 F 09/10/22 04:00 Pulse 81 09/10/22 04:00 Resp 16 09/10/22 04:00 BP 129/69 09/10/22 04:00 Pulse Ox 98 09/10/22 08:57 FiO2 Intake & Output 09/09/22 09/10/22 09/10/22 18:59 06:59 18:59 Intake Total 462 222 Output Total 1500 700 Balance -1038 -700 222 Intake: Oral 462 222 Output: Urine 1500 700 Other: Voiding Method Indwelling Catheter Indwelling Catheter # Bowel Movements 1 - Exam No acute distress, oriented 3. Currently on 4 L of oxygen. Saturations are very reasonable. HEENT examination is grossly unremarkable. Neck supple. Full range of motion. No adenopathy thyromegaly or neck vein distention. Cardiovascular examination reveals regular rhythm rate. S1-S2 normal. No S3 or S4. No discernible murmur noted. Heart rate 81 bpm. Lungs reveal minimal rhonchi and crackles at the right base. No wheezes. Breath sounds otherwise equal. Saturations are 98% on 4 L. Abdomen soft bowel sounds are heard. No masses or tenderness. Extremities are intact. No cyanosis clubbing or edema. Skin is without rash or lesion. Neurologic examination is brief but nonfocal. - Labs CBC & Chem 7: 09/10/22 07:09 09/10/22 07:09 Labs: Abnormal Lab Results - Last 24 Hours (Table) 09/09/22 09/09/22 09/09/22 Range/Units 11:30 16:15 19:53 RBC (4.30-5.90) m/uL Hgb (13.0-17.5) gm/dL Hct (39.0-53.0) % RDW (11.5-15.5) % Plt Count (150-450) k/uL Sodium (137-145) mmol/L BUN (9-20) mg/dL Glucose (74-99) mg/dL POC Glucose (mg/dL) 310 H 306 H 203 H (70-110) mg/dL 09/10/22 09/10/22 09/10/22 Range/Units 06:09 07:09 07:09 RBC 4.04 L (4.30-5.90) m/uL Hgb 12.4 L (13.0-17.5) gm/dL Hct 38.4 L (39.0-53.0) % RDW 15.8 H (11.5-15.5) % Plt Count 145 L (150-450) k/uL Sodium 135 L (137-145) mmol/L BUN 25 H (9-20) mg/dL Glucose 217 H (74-99) mg/dL POC Glucose (mg/dL) 229 H (70-110) mg/dL Microbiology - Last 24 Hours (Table) 09/08/22 14:51 Blood Culture - Preliminary Blood 09/08/22 14:58 Blood Culture - Preliminary Blood Assessment and Plan Assessment: Acute hypoxemic respiratory failure secondary to possible right lower lobe pneumonia. Recent history of gram-negative bacteremia secondary to urinary tract infection, with positive cultures to Enterobacter and Escherichia coli. Acute sepsis, likely secondary to right lower lobe pneumonia. Leukocytosis, secondary to infection. History of COPD, inactive. Acute kidney injury. History of hypertension. History of diabetes mellitus, type II. History of CVA/TIA. History of DVT. History of CAD. History of pulmonary embolism. History of obstructive sleep apnea syndrome. Plan: Plan dated 09/09/2022. The patient is receiving Zosyn empirically. Chest x-ray shows some patchy infiltrate at the right lower lobe, versus atelectasis. We'll continue bronchodilators and oxygen therapy. Continue home medications. Continue with GI and DVT prophylaxis. Labs x-rays and medications are reviewed. We will continue to follow make recommendations along the way. Prognosis is guarded. Plan dated 09/10/2022. The patient appears to be doing relatively well. His saturations are 98% on 4 L. This can probably be titrated down. In addition, the patient remains on Zosyn. Culture data thus far is negative. The patient believes that he is g oing to be discharged later today, back to the [facility]. The pulmonary perspective, he is stable for transfer. No additional recommendations are made. Prognosis is guarded. Labs, x-rays, and medications are all reviewed. Time with Patient: Less than 30
[2022-09-10] MEDS: guaiFENesin-DM 100-10MG/5ML 10 ML CUP PO PRN (11:36)
[2022-09-10] MEDS: ZIPRASIDONE 20 MG CAP PO SCH (11:36)
[2022-09-10 11:52] LABS: Glucose,Whole Blood 243 mg/dL (70-110)
[2022-09-10 12:30] VITALS: BP 122/68; PULSE 65; RESP 18; TEMP 97.7
== END 2022-09-10 13:55 | DRG 871 ==
LOC: EC 23:57 → 3SCARD 09-08 02:43
PROVIDERS: ADMIT Internal Medicine; ATTEND Internal Medicine
DX: A41.50 Gram-negative sepsis, unspecified (principal); I21.A1 Myocardial infarction type 2; J96.21 Acute and chronic respiratory failure with hypoxia; J15.6 Pneumonia due to other Gram-negative bacteria; N17.9 Acute kidney failure, unspecified; J44.0 Chronic obstructive pulmonary disease with (acute) lower respiratory infection; I69.354 Hemiplegia and hemiparesis following cerebral infarction affecting left non-dominant side; I69.351 Hemiplegia and hemiparesis following cerebral infarction affecting right dominant side; Y95 Nosocomial condition; Z20.822 Contact with and (suspected) exposure to COVID-19; N40.0 Benign prostatic hyperplasia without lower urinary tract symptoms; I25.10 Atherosclerotic heart disease of native coronary artery without angina pectoris; I10 Essential (primary) hypertension; G47.33 Obstructive sleep apnea (adult) (pediatric); F43.10 Post-traumatic stress disorder, unspecified; E87.5 Hyperkalemia; L89.159 Pressure ulcer of sacral region, unspecified stage; E66.01 Morbid (severe) obesity due to excess calories; Z68.31 Body mass index [BMI] 31.0-31.9, adult; E11.42 Type 2 diabetes mellitus with diabetic polyneuropathy; E03.9 Hypothyroidism, unspecified; K21.9 Gastro-esophageal reflux disease without esophagitis; R29.6 Repeated falls; G89.29 Other chronic pain; M54.9 Dorsalgia, unspecified; M10.9 Gout, unspecified; F31.9 Bipolar disorder, unspecified; Z88.3 Allergy status to other anti-infective agents; Z88.6 Allergy status to analgesic agent; Z99.81 Dependence on supplemental oxygen; Z87.440 Personal history of urinary (tract) infections; Z86.718 Personal history of other venous thrombosis and embolism; Z86.711 Personal history of pulmonary embolism; Z79.899 Other long term (current) drug therapy; Z79.890 Hormone replacement therapy; Z79.84 Long term (current) use of oral hypoglycemic drugs; Z79.4 Long term (current) use of insulin; Z79.02 Long term (current) use of antithrombotics/antiplatelets; I25.2 Old myocardial infarction; I69.328 Other speech and language deficits following cerebral infarction; Z89.021 Acquired absence of right finger(s)
CPT/HCPCS: 36415; 71045; 71046; 80048; 80053; 84145; 84484; 85025; 85027; 87040; 87070; 87205; 87449; 94640; 94760; 96365; 99285

== ENCOUNTER → 2022-12-02 | Outpatient (CLI) | payer OTHER ==
--- NOTE | 2022-12-02 17:58 | MR ---
EXAMINATION TYPE: MR cervical spine wo con DATE OF EXAM: 12/02/2022 INDICATION: Patient age: Male; 72 years old; Reason for study: M54.12 RADICULOPATHY, CERVICAL REGION; PH[facility]. Cervical Pain x1 year - Pain travels do wn both arms and fingers COMPARISON: 05/30/2017 TECHNIQUE: Multi planar, multi sequence imaging was performed utilizing: T1-weighted, T2-weighted, an d turbo inversion recovery imaging of the cervical spine. IV Contrast: None FINDINGS: Alignment: The cervical vertebral bodies have preserved heights. Alignment is within normal limits gi mode patient positioning. Bones: Scattered Modic endplate changes with osteophytes and disc space narrowing. Multilevel degener ative disc disease is noted and most pronounced at the C5-C7 vertebral levels. Cord: The spinal cord is unremarkable with regards to their signal intensity and morphology. Discs: Multilevel disc desiccation is present. C2-C3: No significant disc pathology. The spinal canal is patent. No neural foraminal stenosis. C3-C4: No significant disc pathology. The spinal canal is patent. Bilateral facet and uncovertebral joint arthropathy are present with moderate bilateral neural foraminal stenosis. C4-C5: A disc osteophyte complex is present with moderate spinal canal stenosis. Bilateral facet and uncovertebral joint arthropathy are present with moderate bilateral neural foraminal stenosis. C5-C6: A disc osteophyte complex is present with mild to moderate spinal canal stenosis. Bilateral f acet and uncovertebral joint arthropathy are present with moderate to severe bilateral neural foramin al stenosis. C6-C7: A disc osteophyte complex is present with mild spinal canal stenosis. Bilateral facet and unc overtebral joint arthropathy are present with moderate right and moderate to severe left neural watson inal stenosis. C7-T1: No significant disc pathology. The spinal canal is patent. No neural foraminal stenosis. Other: Mucosal thickening with retention cyst seen in the maxillary sinus on the right. IMPRESSION: Overall findings are not significantly changed from prior in 2018. Mild regression of neural foramina l stenosis throughout the cervical spine. 1. Multilevel disc degeneration with associated osteoarthritic changes with moderate moderate to sev ere neural foraminal stenosis throughout the cervical spine. 2. Moderate spinal canal stenosis at C4-C5.
== END | disposition home or self-care (01) ==
LOC: RADMRIMAIN 13:23
DX: M50.121 Cervical disc disorder at C4-C5 level with radiculopathy (principal); M47.22 Other spondylosis with radiculopathy, cervical region; M99.71 Connective tissue and disc stenosis of intervertebral foramina of cervical region
CPT/HCPCS: 72141

== ENCOUNTER 2023-01-28 20:45 | Emergency (ER) | payer OTHER ==
[2023-01-28] MEDS ORDERED: SODIUM CHLORIDE 0.9% 1,000 ML IV STA ×2 (21:11→22:16)
[2023-01-28 21:12] VITALS: RESP 19; TEMP 98.6
[2023-01-28 21:12] LABS: Glucose,Whole Blood 157 mg/dL (70-110)
--- NOTE | 2023-01-28 21:14 | ED ---
General Adult HPI - General Chief complaint: Fall Stated complaint: COVID+ Time Seen by Provider: 01/28/23 20:55 Source: patient, EMS, RN notes reviewed Mode of arrival: EMS Limitations: no limitations - History of Present Illness Initial comments: Patient is a pleasant 72-year-old male presenting to the emergency department from intermediate for weakness and fall. Patient is bedridden and nonambulatory. Patient did fall out of his bed. No reported head injury. Patient complains of being fatigued and generally weak. Patient was diagnosed with COVID-19 infection recently. Patient admits to feeling fatigued and cough recently, unclear how long. - Related Data Home Medications Medication Instructions Recorded Confirmed Finasteride [Proscar] 5 mg PO DAILY 12/02/14 09/08/22 Levothyroxine Sodium [Synthroid] 50 mcg PO HS 12/02/14 09/08/22 Sertraline [Zoloft] 200 mg PO DAILY 12/02/14 09/08/22 Tamsulosin [Flomax] 0.8 mg PO HS 12/02/14 09/08/22 allopurinoL [Zyloprim] 100 mg PO BID 12/02/14 09/08/22 Pantoprazole Sodium [Protonix] 40 mg PO DAILY 10/21/18 09/08/22 Fluticasone/Vilanterol [Breo 1 puff INHALATION RT-DAILY 07/03/20 09/08/22 Ellipta 100-25 Mcg Inhaler] Magnesium Hydroxide [Milk of 2,400 mg PO Q48H PRN 07/03/20 09/08/22 Magnesia] Sennosides/Docusate Sodium [Senna 1 tab PO DAILY 07/03/20 09/08/22 Plus 8.6-50 mg Tablet] Simethicone [Gas-X] 125 mg PO DAILY PRN 07/03/20 09/08/22 bisacodyL [Dulcolax] 10 mg RECTAL Q72H PRN 07/03/20 09/08/22 carBAMazepine [TEGretol] 200 mg PO TID 07/03/20 09/08/22 Atorvastatin [Lipitor] 40 mg PO HS 01/14/21 09/08/22 Clopidogrel Bisulfate [Plavix] 75 mg PO DAILY 01/14/21 09/08/22 INSULIN LISPRO (humaLOG) [humaLOG] 14 unit SQ DAILY 01/14/21 09/08/22 Insulin Glargine,Hum.rec.anlog 55 unit SQ DAILY 01/14/21 09/08/22 [Semglee Pen] Ziprasidone [Geodon] 20 mg PO TID 01/14/21 09/08/22 buPROPion XL [Wellbutrin XL] 300 mg PO DAILY 01/14/21 09/08/22 Albuterol Sulfate [Albuterol 2 puff INHALATION RT-Q4H PRN 08/24/22 09/08/22 Sulfate Hfa] Artificial Tears Ointment 0.25 inch OPHTHALMIC HS 08/24/22 09/08/22 [Lubrifresh Pm Ointment] Benzonatate [Tessalon Perles] 100 mg PO Q8H PRN 08/24/22 09/08/22 Empagliflozin [Jardiance] 25 mg PO DAILY 08/24/22 09/08/22 Ergocalciferol [Vitamin D2 (1250 1,250 mcg PO SA 08/24/22 09/08/22 Mcg = 20835 Iu)] Insulin Lispro [Insulin Lispro See Protocol SQ TID 08/24/22 09/08/22 Kwikpen U-100] Loratadine 10 mg PO DAILY 08/24/22 09/08/22 Mag Hydrox/Al Hydrox/Simeth 30 ml PO TID-W/MEALS 08/24/22 09/08/22 [Maalox] Ondansetron [Zofran] 4 mg PO Q6H PRN 08/24/22 09/08/22 Polyvinyl Alcohol/Povidone [Clear 1 drop BOTH EYES TID 08/24/22 09/08/22 Eyes Natural Tears Drop] Psyllium Husk 100% [Metamucil 6 gm PO DAILY 08/24/22 09/08/22 Packet] carvediloL [Coreg] 3.125 mg PO BID 08/24/22 09/08/22 guaiFENesin-DM 100-10MG/5ML 10 ml PO Q4H PRN 08/24/22 09/08/22 [Robitussin DM] Acetaminophen [Tylenol 8 Hour] 650 mg PO Q6H PRN 09/08/22 09/08/22 Hydrocortisone [Anusol-Hc] 1 applic RECTAL Q6H PRN 09/08/22 09/08/22 Previous Rx's Medication Instructions Recorded ALPRAZolam [Xanax] 0.25 mg PO DAILY #2 tab 09/10/22 ALPRAZolam [Xanax] 0.5 mg PO HS 2 Days #2 tab 09/10/22 Amoxic-Pot Clav 875-125Mg 1 tab PO Q12HR 4 Days #8 tab 09/10/22 [Augmentin 875-125] Benzocaine 20 % Gel [Orajel] 1 applic MM Q6H PRN each 09/10/22 Gabapentin 600 mg PO TID #6 tab 09/10/22 Lactobacillus Acidoph & Bulgar 1 each PO TID packet 09/10/22 [Lactinex] Allergies Allergy/AdvReac Type Severity Reaction Status Date / Time etodolac [From Lodine] Allergy Unknown Verified 09/08/22 11:38 oxybutynin Allergy Unknown Verified 09/08/22 11:38 aspirin AdvReac ABDOMINAL Verified 09/08/22 11:38 DISCOMFORT Review of Systems ROS Statement: Those systems with pertinent positive or pertinent negative responses have been documented in the HPI. ROS Other: All systems not noted in ROS Statement are negative. Constitutional: Reports: chills Eyes: Denies: eye pain Respiratory: Reports: cough. Denies: dyspnea Cardiovascular: Denies: chest pain Endocrine: Reports: fatigue Gastrointestinal: Denies: abdominal pain Musculoskeletal: Denies: back pain Past Medical History Past Medical History: COPD, CVA/TIA, Diabetes Mellitus, Deep Vein Thrombosis (DVT), GERD/Reflux, Hypertension, Myocardial Infarction (NH), Prostate Disorder, Pulmonary Embolus (PE), Sleep Apnea/CPAP/BIPAP, Thyroid Disorder Additional Past Medical History / Comment(s): Morbid obesity, obstructive sleep apnea uses CPAP-uses O2 at 5 L during night with cpap, uses 3 liters nasal cannula at home continuous, SOB,history of peripheral neuropathy severe associated related to diabetes mellitus, gait dysfunction and frequent falls- uses w/c-able to stand to transfer, chronic back pain, gout, BPH, TIA/CVA-loyda arm and leg weakness, previous history of C. diff colitis back in 2010,hypothyroidism,colon polyps, per speech is garbled/slurred which is the residual from old stroke Last Myocardial Infarction Date:: 2010 History of Any Multi-Drug Resistant Organisms: None Reported Date of last positivie culture/infection: None MDRO Source:: None Past Surgical History: Hernia Repair Additional Past Surgical History / Comment(s): hiatal hernia repair x 2, umbilical hernia repair,2nd digit rt hand amputated Past Anesthesia/Blood Transfusion Reactions: No Reported Reaction Past Psychological History: Bipolar, Depression, PTSD Smoking Status: Never smoker Past Alcohol Use History: None Reported Past Drug Use History: None Reported - Past Family History Father Family Medical History: Cancer Additional Family Medical History / Comment(s): lung Mother Family Medical History: Cancer Additional Family Medical History / Comment(s): bladder General Exam Limitations: no limitations General appearance: alert, in no apparent distress Head exam: Present: atraumatic Eye exam: Present: normal appearance, PERRL ENT exam: Present: mucous membranes dry Neck exam: Present: normal inspection Respiratory exam: Present: normal lung sounds bilaterally Cardiovascular Exam: Present: regular rate, normal rhythm GI/Abdominal exam: Present: soft. Absent: tenderness Extremities exam: Present: other (Legs are atrophied. Bilateral leg weakness). Absent: tenderness Neurological exam: Present: alert, oriented X3 Expanded Neurological exam: Present: protecting the airway Patient oriented to: Present: person, place, time Motor strength exam: RUE: 5, LUE: 5, RLE: 2/1, LLE: 2/1 Eye Response: (4) open spontaneously Motor Response: (6) obeys commands Verbal Response: (5) oriented Psychiatric exam: Present: normal affect, normal mood Skin exam: Present: normal color Course Vital Signs 01/28/23 20:49 Temperature 98.6 F Pulse Rate 66 Respiratory 19 Rate Blood Pressure 115/70 O2 Sat by Pulse 98 Oximetry Medical Decision Making - Medical Decision Making Was pt. sent in by a medical professional or institution (, PA, DIVIDING MACHINE OPERATOR, urgent care, hospital, or intermediate...) When possible be specific @ -Patient was sent from nursing facility Did you speak to anyone other than the patient for history (EMS, parent, family, police, friend...)? What history was obtained from this source @ -Family arrives later helps provide more history. Did you review nursing and triage notes (agree or disagree)? Why? @ -I reviewed and agree with nursing and triage notes Were old charts reviewed (outside hosp., previous admission, EMS record, old EKG, old radiological studies, urgent care reports/EKG's, intermediate records)? Report findings @ -No old charts were reviewed Differential Diagnosis (chest pain, altered mental status, abdominal pain women, abdominal pain men, vaginal bleeding, weakness, fever, dyspnea, syncope, headache, dizziness, GI bleed, back pain, seizure, CVA, palpatations, mental health, musculoskeletal)? @ -Differential Weakness: Hypoglycemia, shock, sepsis, hyponatremia, anemia, infection, NH, ETOH, adverse medicine reaction, overdose, stroke, this is not meant to be an all-inclusive list. EKG interpreted by me (3pts min.). @ -As above X-rays interpreted by me (1pt min.). @ -Chest and pelvic x-ray show no acute process CT interpreted by me (1pt min.). @ -Report reviewed U/S interpreted by me (1pt. min.). @ -None done What testing was considered but not performed or refused? (CT, X-rays, U/S, labs)? Why? @ -None What meds were considered but not given or refused? Why? @ -None Did you discuss the management of the patient with other professionals (professionals i.e. , PA, DIVIDING MACHINE OPERATOR, lab, RT, psych nurse, professor of social work, layer off, teacher, commissioned security officer, case consultant)? Give summary @ -No Was smoking cessation discussed for >3mins.? @ -No Was critical care preformed (if so, how long)? @ -No Were there social determinants of health that impacted care today? How? (Homelessness, low income, unemployed, alcoholism, drug addiction, transportation, low edu. Level, literacy, decrease access to med. care, longterm, rehab)? @ -No Was there de-escalation of care discussed even if they declined (Discuss DNR or withdrawal of care, Hospice)? DNR status @ -No What co-morbidities impacted this encounter? (DM, HTN, Smoking, COPD, CAD, Ca ncer, CVA, ARF, Chemo, Hep., AIDS, mental health diagnosis, sleep apnea, morbid obesity)? @ -None Was patient admitted / discharged? Hospital course, mention meds given and route, prescriptions, significant lab abnormalities, going to OR and other pertinent info. @ -Patient reevaluated and resting comfortably in bed. Patient and family are updated on results and plan. Patient will receive fluids and be discharged. Undiagnosed new problem with uncertain prognosis? @ -No Drug Therapy requiring intensive monitoring for toxicity (Heparin, Nitro, Insulin, Cardizem)? @ -No Were any procedures done? @ -No Diagnosis/symptom? @ -Dehydration, fall Acute, or Chronic, or Acute on Chronic? @ -Acute, acute Uncomplicated (without systemic symptoms) or Complicated (systemic symptoms)? @ -default Side effects of treatment? @ -No Exacerbation, Progression, or Severe Exacerbation? @ -No Poses a threat to life or bodily function? How? (Chest pain, USA, NH, pneumonia, PE, COPD, DKA, ARF, appy, cholecystitis, CVA, Diverticulitis, Homicidal, Suicidal, threat to staff... and all critical care pts) @ -No - Lab Data Result diagrams: 01/28/23 21:31 01/28/23 21:31 Lab Results 01/28/23 01/28/23 01/28/23 Range/Units 21:11 21:31 21:31 WBC 9.3 (3.8-10.6) k/uL RBC 4.24 L (4.30-5.90) m/uL Hgb 12.5 L (13.0-17.5) gm/dL Hct 37.3 L (39.0-53.0) % MCV 88.0 (80.0-100.0) fL MCH 29.4 (25.0-35.0) pg MCHC 33.4 (31.0-37.0) g/dL RDW 14.7 (11.5-15.5) % Plt Count 142 L (150-450) k/uL MPV 8.2 Neutrophils % 83 % Lymphocytes % 11 % Monocytes % 5 % Eosinophils % 1 % Basophils % 0 % Neutrophils # 7.7 (1.3-7.7) k/uL Lymphocytes # 1.0 (1.0-4.8) k/uL Monocytes # 0.4 (0-1.0) k/uL Eosinophils # 0.1 (0-0.7) k/uL Basophils # 0.0 (0-0.2) k/uL Sodium 134 L (137-145) mmol/L Potassium 5.0 (3.5-5.1) mmol/L Chloride 100 (98-107) mmol/L Carbon Dioxide 25 (22-30) mmol/L Anion Gap 9 mmol/L BUN 40 H (9-20) mg/dL Creatinine 1.36 H (0.66-1.25) mg/dL Est GFR (CKD-EPI)AfAm 59 (>60 ml/min/1.73 sqM) Est GFR (CKD-EPI)NonAf 51 (>60 ml/min/1.73 sqM) Glucose 158 H (74-99) mg/dL POC Glucose (mg/dL) 157 H (70-110) mg/dL POC Glu Securities Compliance Examiner ID Amy Lopez Plasma Lactic Acid Anthony (0.7-2.0) mmol/L Calcium 9.2 (8.4-10.2) mg/dL Magnesium 2.8 H (1.6-2.3) mg/dL Total Bilirubin 0.4 (0.2-1.3) mg/dL AST 39 (17-59) U/L ALT 40 (4-49) U/L Alkaline Phosphatase 63 (38-126) U/L Total Protein 7.0 (6.3-8.2) g/dL Albumin 3.9 (3.5-5.0) g/dL 01/28/23 Range/Units 21:31 WBC (3.8-10.6) k/uL RBC (4.30-5.90) m/uL Hgb (13.0-17.5) gm/dL Hct (39.0-53.0) % MCV (80.0-100.0) fL MCH (25.0-35.0) pg MCHC (31.0-37.0) g/dL RDW (11.5-15.5) % Plt Count (150-450) k/uL MPV Neutrophils % % Lymphocytes % % Monocytes % % Eosinophils % % Basophils % % Neutrophils # (1.3-7.7) k/uL Lymphocytes # (1.0-4.8) k/uL Monocytes # (0-1.0) k/uL Eosinophils # (0-0.7) k/uL Basophils # (0-0.2) k/uL Sodium (137-145) mmol/L Potassium (3.5-5.1) mmol/L Chloride (98-107) mmol/L Carbon Dioxide (22-30) mmol/L Anion Gap mmol/L BUN (9-20) mg/dL Creatinine (0.66-1.25) mg/dL Est GFR (CKD-EPI)AfAm (>60 ml/min/1.73 sqM) Est GFR (CKD-EPI)NonAf (>60 ml/min/1.73 sqM) Glucose (74-99) mg/dL POC Glucose (mg/dL) (70-110) mg/dL POC Glu Securities Compliance Examiner ID Plasma Lactic Acid Anthony 1.2 (0.7-2.0) mmol/L Calcium (8.4-10.2) mg/dL Magnesium (1.6-2.3) mg/dL Total Bilirubin (0.2-1.3) mg/dL AST (17-59) U/L ALT (4-49) U/L Alkaline Phosphatase (38-126) U/L Total Protein (6.3-8.2) g/dL Albumin (3.5-5.0) g/dL Disposition Clinical Impression: Fall, Dehydration Disposition: HOME SELF-CARE Condition: Stable Instructions (If sedation given, give patient instructions): Fall Prevention for Older Adults (ED), COVID-19 (Coronavirus Disease 2019) (ED), Dehydration (ED) Additional Instructions: Please follow-up with primary care physician in the next day or 2 for recheck. Encourage fluids. Return for difficulty breathing, not tolerating fluids, uncontrolled vomiting, worsening or changing symptoms or any other concerns. Is patient prescribed a controlled substance at d/c from ED?: No Referrals: Lori Schultz PAC [Primary Care Provider] - 1-2 days Time of Disposition: 22:57
[2023-01-28 21:53] LABS: Basophils % (A) 0 %; Eosinophils # (A) 0.1 k/uL (0-0.7); Eosinophils % (A) 1 %; HCT 37.3 % (39.0-53.0); HGB 12.5 gm/dL (13.0-17.5); Lymphocytes % (A) 11 %; MCH 29.4 pg (25.0-35.0); MCHC 33.4 g/dL (31.0-37.0); Mean Platelet Volume 8.2; Monocytes # (A) 0.4 k/uL (0-1.0); Monocytes % (A) 5 %; Neutrophils # (A) 7.7 k/uL (1.3-7.7); Neutrophils % (A) 83 %; Platelet Count 142 k/uL (150-450); RBC 4.24 m/uL (4.30-5.90); RDW 14.7 % (11.5-15.5); WBC 9.3 k/uL (3.8-10.6)
[2023-01-28 22:06] LABS: ALT 40 U/L (4-49); AST 39 U/L (17-59); African American GFR (CKD) 59 (>60 ml/min/1.73 sqM); Albumin 3.9 g/dL (3.5-5.0); Alkaline Phosphatase 63 U/L (38-126); Anion Gap 9 mmol/L; Blood Urea Nitrogen 40 mg/dL (9-20); Calcium 9.2 mg/dL (8.4-10.2); Carbon Dioxide 25 mmol/L (22-30); Chloride 100 mmol/L (98-107); Glucose 158 mg/dL (74-99); Magnesium 2.8 mg/dL (1.6-2.3); Non-African American GFR(CKD) 51 (>60 ml/min/1.73 sqM); Sodium 134 mmol/L (137-145); Total Bilirubin 0.4 mg/dL (0.2-1.3)
--- NOTE | 2023-01-28 22:23 | XR ---
EXAMINATION TYPE: XR chest 1V portable DATE OF EXAM: 01/28/2023 COMPARISON: Chest x-ray September 09, 2022 HISTORY: Fall TECHNIQUE: Single frontal view of the chest is obtained. FINDINGS: There is low lung volumes and elevated right hemidiaphragm redemonstrated. Cardiomegaly is redemonstrated. Underlying scoliotic curvature positioning is noted. IMPRESSION: Chronic changes and cardiomegaly with low lung volumes and right basilar opacity favorin g atelectasis are all redemonstrated. No suspicious new acute pulmonary process.
--- NOTE | 2023-01-28 22:25 | XR ---
EXAMINATION TYPE: XR pelvis AP view DATE OF EXAM: 01/28/2023 CLINICAL HISTORY: Falling injury with pain TECHNIQUE: A single AP view of the pelvis is obtained. COMPARISON: None. FINDINGS: Seems slightly suboptimal due to portable technique and patient's large body habitus. There is no acute displaced fracture evident in the pelvis. Mild to moderate narrowing and spurring of bot h hip joints is redemonstrated. Pubic symphysis is intact. Sacroiliac joints are preserved. Surgical clips overlie the superior aspect of the pubic symphysis. IMPRESSION: There is no acute displaced fracture in the pelvis.
--- NOTE | 2023-01-28 22:46 | CT ---
EXAMINATION TYPE: CT brain cspine wo con DATE OF EXAM: 01/28/2023 COMPARISON: CT brain April 24, 2019. Prior CT cervical spine 2017 HISTORY: Fall, neck pain. Poor historian. CT DLP: 1704 mGycm. Automated Exposure Control for Dose Reduction was Utilized. TECHNIQUE: CT scan of the head and cervical spine are performed without contrast. FINDINGS: There is no acute intracranial hemorrhage or midline shift identified. Mild to moderate v entricular and sulcal prominence is redemonstrated. Rondon-white matter differentiation is preserved. C alvarium is intact. Patchy opacification mucosal thickening of ethmoid sinuses bilaterally is again s een. Some dependent opacity in left maxillary sinus is noted. Some patchy opacity of the inferior rig ht frontal sinus is seen. Bilateral aphakia is now noted. Cervical spine is visualized in its entirety from C1 through upper thoracic levels and demonstrates d extroconvex scoliotic curvature centered in the upper thoracic spine with straightening alignment on sagittal images. There is grade 1 retrolisthesis C6 on C7 is demonstrated. Moderate disc space narrow ing and spurring C5-C6 and C6-C7 level is redemonstrated. Vertebral body heights are maintained.. Pr evertebral soft tissue appears within normal limits. The C1-C2 articulation is within normal limits on the coronal images. Review of axial images redemonstrate multilevel facet degenerative changes causing multilevel bilater al neural foraminal narrowing. Visualized lung apices show no pneumothorax. IMPRESSION: 1. There is no acute fracture or dislocation evident in the cervical spine. 2. No acute intracranial hemorrhage or midline shift is seen.
[2023-01-29 00:36] VITALS: BP 141/74; PULSE 75
== END 2023-01-29 00:24 | disposition home or self-care (01) ==
LOC: EC 20:45
DX: E86.0 Dehydration (principal); E03.9 Hypothyroidism, unspecified; E11.42 Type 2 diabetes mellitus with diabetic polyneuropathy; E66.01 Morbid (severe) obesity due to excess calories; G47.33 Obstructive sleep apnea (adult) (pediatric); I11.9 Hypertensive heart disease without heart failure; I25.2 Old myocardial infarction; J44.9 Chronic obstructive pulmonary disease, unspecified; K21.9 Gastro-esophageal reflux disease without esophagitis; F31.9 Bipolar disorder, unspecified; Z79.02 Long term (current) use of antithrombotics/antiplatelets; Z79.4 Long term (current) use of insulin; Z79.84 Long term (current) use of oral hypoglycemic drugs; Z79.890 Hormone replacement therapy; Z79.899 Other long term (current) drug therapy; Z88.6 Allergy status to analgesic agent; Z88.8 Allergy status to other drugs, medicaments and biological substances; Z68.31 Body mass index [BMI] 31.0-31.9, adult
CPT/HCPCS: 36415; 70450; 71045; 72125; 72170; 80053; 83605; 83735; 85025; 96360; 96361; 99284

== ENCOUNTER 2023-07-01 14:51 | Inpatient (IN) | payer OTHER, MEDICARE ==
--- NOTE | 2023-07-01 15:15 | ED ---
General Adult HPI - General Chief complaint: Shortness of Breath Stated complaint: SOB Time Seen by Provider: 07/01/23 15:13 Source: patient, EMS Mode of arrival: EMS Limitations: no limitations - History of Present Illness Initial comments: Jarrell is a 73yo M brought [facility] the ER from a [facility] for evaluation of fever and hypoxia. History was provided by nursing staff at facility, apparently patient was usually awake alert and oriented however today they noted he seemed to be having trouble breathing was noted to be hypoxic with oxygen saturations in the 80s and was alert only to self. - Related Data Home Medications Medication Instructions Recorded Confirmed Finasteride [Proscar] 5 mg PO DAILY 12/02/14 09/08/22 Levothyroxine Sodium [Synthroid] 50 mcg PO HS 12/02/14 09/08/22 Sertraline [Zoloft] 200 mg PO DAILY 12/02/14 09/08/22 Tamsulosin [Flomax] 0.8 mg PO HS 12/02/14 09/08/22 allopurinoL [Zyloprim] 100 mg PO BID 12/02/14 09/08/22 Pantoprazole Sodium [Protonix] 40 mg PO DAILY 10/21/18 09/08/22 Fluticasone/Vilanterol [Breo 1 puff INHALATION RT-DAILY 07/03/20 09/08/22 Ellipta 100-25 Mcg Inhaler] Magnesium Hydroxide [Milk of 2,400 mg PO Q48H PRN 07/03/20 09/08/22 Magnesia] Sennosides/Docusate Sodium [Senna 1 tab PO DAILY 07/03/20 09/08/22 Plus 8.6-50 mg Tablet] Simethicone [Gas-X] 125 mg PO DAILY PRN 07/03/20 09/08/22 bisacodyL [Dulcolax] 10 mg RECTAL Q72H PRN 07/03/20 09/08/22 carBAMazepine [TEGretol] 200 mg PO TID 07/03/20 09/08/22 Atorvastatin [Lipitor] 40 mg PO HS 01/14/21 09/08/22 Clopidogrel Bisulfate [Plavix] 75 mg PO DAILY 01/14/21 09/08/22 INSULIN LISPRO (humaLOG) [humaLOG] 14 unit SQ DAILY 01/14/21 09/08/22 Insulin Glargine,Hum.rec.anlog 55 unit SQ DAILY 01/14/21 09/08/22 [Semglee Pen] Ziprasidone [Geodon] 20 mg PO TID 01/14/21 09/08/22 buPROPion XL [Wellbutrin XL] 300 mg PO DAILY 01/14/21 09/08/22 Albuterol Sulfate [Albuterol 2 puff INHALATION RT-Q4H PRN 08/24/22 09/08/22 Sulfate Hfa] Artificial Tears Ointment 0.25 inch OPHTHALMIC HS 08/24/22 09/08/22 [Lubrifresh Pm Ointment] Benzonatate [Tessalon Perles] 100 mg PO Q8H PRN 08/24/22 09/08/22 Empagliflozin [Jardiance] 25 mg PO DAILY 08/24/22 09/08/22 Ergocalciferol [Vitamin D2 (1250 1,250 mcg PO SA 08/24/22 09/08/22 Mcg = 79302 Iu)] Insulin Lispro [Insulin Lispro See Protocol SQ TID 08/24/22 09/08/22 Kwikpen U-100] Loratadine 10 mg PO DAILY 08/24/22 09/08/22 Mag Hydrox/Al Hydrox/Simeth 30 ml PO TID-W/MEALS 08/24/22 09/08/22 [Maalox] Ondansetron [Zofran] 4 mg PO Q6H PRN 08/24/22 09/08/22 Polyvinyl Alcohol/Povidone [Clear 1 drop BOTH EYES TID 08/24/22 09/08/22 Eyes Natural Tears Drop] Psyllium Husk 100% [Metamucil 6 gm PO DAILY 08/24/22 09/08/22 Packet] carvediloL [Coreg] 3.125 mg PO BID 08/24/22 09/08/22 guaiFENesin-DM 100-10MG/5ML 10 ml PO Q4H PRN 08/24/22 09/08/22 [Robitussin DM] Acetaminophen [Tylenol 8 Hour] 650 mg PO Q6H PRN 09/08/22 09/08/22 Hydrocortisone [Anusol-Hc] 1 applic RECTAL Q6H PRN 09/08/22 09/08/22 Previous Rx's Medication Instructions Recorded ALPRAZolam [Xanax] 0.25 mg PO DAILY #2 tab 09/10/22 ALPRAZolam [Xanax] 0.5 mg PO HS 2 Days #2 tab 09/10/22 Amoxic-Pot Clav 875-125Mg 1 tab PO Q12HR 4 Days #8 tab 09/10/22 [Augmentin 875-125] Benzocaine 20 % Gel [Orajel] 1 applic MM Q6H PRN each 09/10/22 Gabapentin 600 mg PO TID #6 tab 09/10/22 Lactobacillus Acidoph & Bulgar 1 each PO TID packet 09/10/22 [Lactinex] Allergies Allergy/AdvReac Type Severity Reaction Status Date / Time etodolac [From Lodine] Allergy Unknown Verified 07/01/23 19:19 oxybutynin Allergy Unknown Verified 07/01/23 19:19 aspirin AdvReac ABDOMINAL Verified 07/01/23 19:19 DISCOMFORT Review of Systems ROS Statement: Those systems with pertinent positive or pertinent negative responses have been documented in the HPI. ROS Other: All systems not noted in ROS Statement are negative. Past Medical History Past Medical History: COPD, CVA/TIA, Diabetes Mellitus, Deep Vein Thrombosis (DVT), GERD/Reflux, Hypertension, Myocardial Infarction ([place]), Prostate Disorder, Pulmonary Embolus (PE), Sleep Apnea/CPAP/BIPAP, Thyroid Disorder Additional Past Medical History / Comment(s): Morbid obesity, obstructive sleep apnea uses CPAP-uses O2 at 5 L during night with cpap, uses 3 liters nasal cannula at home continuous, SOB,history of peripheral neuropathy severe associated related to diabetes mellitus, gait dysfunction and frequent falls- uses w/c-able to stand to transfer, chronic back pain, gout, BPH, TIA/CVA-loyda arm and leg weakness, previous history of C. diff colitis back in 2010,hypothyroidism,colon polyps, per speech is garbled/slurred which is the residual from old stroke Last Myocardial Infarction Date:: 2010 History of Any Multi-Drug Resistant Organisms: None Reported Date of last positivie culture/infection: None MDRO Source:: None Past Surgical History: Hernia Repair Additional Past Surgical History / Comment(s): hiatal hernia repair x 2, umbilical hernia repair,2nd digit rt hand amputated Past Anesthesia/Blood Transfusion Reactions: No Reported Reaction Past Psychological History: Bipolar, Depression, PTSD Smoking Status: Never smoker Past Alcohol Use History: None Reported Past Drug Use History: None Reported - Past Family History Father Family Medical History: Cancer Additional Family Medical History / Comment(s): lung Mother Family Medical History: Cancer Additional Family Medical History / Comment(s): bladder General Exam - General Exam Comments Initial Comments: Physical Exam GENERAL: Elderly gentleman who appears acutely ill HENT: Normocephalic, Atraumatic. EYES: PERRL, EOMI PULMONARY: Tachypnea CARDIOVASCULAR: Tachycardia, regular rhythm ABDOMEN: Soft and nontender with normal bowel sounds. SKIN: Skin is clear with no lesions or rashes and otherwise unremarkable. : Deferred NEUROLOGIC: Patient is alert and oriented x3. Moving all extremities spontaneously MUSCULOSKELETAL: Normal extremities with adequate strength and full range of motion. No lower extremity swelling or edema. No calf tenderness. PSYCHIATRIC: Normal psychiatric evaluation. Limitations: no limitations Course Vital Signs 07/01/23 07/01/23 07/01/23 14:52 14:57 15:38 Temperature 100.6 F H Pulse Rate 96 98 Respiratory 24 22 22 Rate Blood Pressure 111/55 91/73 O2 Sat by Pulse 93 L 90 L Oximetry 07/01/23 07/01/23 17:22 18:32 Temperature Pulse Rate 87 83 Respiratory 22 24 Rate Blood Pressure 90/71 131/65 O2 Sat by Pulse 96 93 L Oximetry EKG Findings - EKG Comments: EKG Findings:: EKG interpreted by me, EKG obtained due to tachycardia EKG obtained at 1456 rate is 98 rhythm is sinus there is a first-degree AV block, NV 222, QRS 133, QTc 415 there is no acute ST elevations or depressions no evidence of acute ischemia or infarction. Medical Decision Making - Medical Decision Making Was pt. sent in by a medical professional or institution (, PA, HOSPICE NURSE, urgent care, hospital, or [facility]...) When possible be specific @ -Yes, from [facility] Did you speak to anyone other than the patient for history (EMS, parent, family, police, friend...)? What history was obtained from this source @ -EMS Did you review nursing and triage notes (agree or disagree)? Why? @ -I reviewed and agree with nursing and triage notes Were old charts reviewed (outside hosp., previous admission, EMS record, old EKG , old radiological studies, urgent care reports/EKG's, [facility] records)? Report findings @ -Previous admission was reviewed Differential Diagnosis (chest pain, altered mental status, abdominal pain women, abdominal pain men, vaginal bleeding, weakness, fever, dyspnea, syncope, headache, dizziness, GI bleed, back pain, seizure, CVA, palpatations, mental health)? @ -Differential Dyspnea: Coronary syndrome, arrhythmia, tamponade, asthma, COPD, pulmonary embolism, pneumonia, pneumothorax, pulmonary effusion, anaphylaxis, diabetic ketoacidosis, flailed chest, pulmonary contusion, diaphragmatic rupture, anemia, neuromuscular, this is not meant to be an all-inclusive list. EKG interpreted by me (3pts min.). @ -As above X-rays interpreted by me (1pt min.). @ -Left-sided infiltrate CT interpreted by me (1pt min.). @ -None done U/S interpreted by me (1pt. min.). @ -None done What testing was considered but not performed or refused? (CT, X-rays, U/S, labs)? Why? @ -None What meds were considered but not given or refused? Why? @ -None Did you discuss the management of the patient with other professionals (professionals i.e. , PA, HOSPICE NURSE, lab, RT, psych nurse, social contact worker, label designer, teacher, chief data officer, case hardener)? Give summary @ -Yes admitting physician Dr. Rothman Was smoking cessation discussed for >3mins.? @ -No Was critical care preformed (if so, how long)? @ -Yes 30 minutes Were there social determinants of health that impacted care today? How? (Homelessness, low income, unemployed, alcoholism, drug addiction, transportation, low edu. Level, literacy, decrease access to med. care, care home, rehab)? @ -No Was there de-escalation of care discussed even if they declined (Discuss DNR or withdrawal of care, Hospice)? DNR status @ -No What co-morbidities impacted this encounter? (DM, HTN, Smoking, COPD, CAD, Cancer, CVA, ARF, Chemo, Hep., AIDS, mental health diagnosis, sleep apnea, morbid obesity)? @ -Hypertension, CAD Was patient admitted / discharged? Hospital course, mention meds given and route, prescriptions, significant lab abnormalities, going to OR and other pertinent info. @ -Admit The patient was seen and examined immediately after arrival, patient was noted to be altered febrile tachycardic tachypneic, hypoxic and hypotensive. Septic workup with fluid resuscitation broad-spectrum antibiotics labs and x-rays were is initiated. Undiagnosed new problem with uncertain prognosis? @ -No Drug Therapy requiring intensive monitoring for toxicity (Heparin, Nitro, Insulin, Cardizem)? @ -No Were any procedures done? @ -No Diagnosis/symptom? @ -Sepsis, pneumonia Acute, or Chronic, or Acute on Chronic? @ -Acute Uncomplicated (without systemic symptoms) or Complicated (systemic symptoms)? @ -Complicated Side effects of treatment? @ -No Exacerbation, Progression, or Severe Exacerbation? @ -No Poses a threat to life or bodily function? How? (Chest pain, [place], [place], pneumonia, PE, COPD, DKA, ARF, appy, cholecystitis, CVA, Diverticulitis, Homicidal, Suicidal, threat to staff... and all critical care pts) @ -Yes sepsis can proceed to septic shock and - Lab Data Result diagrams: 07/01/23 15:17 07/01/23 15:17 Lab Results 07/01/23 07/01/23 07/01/23 Range/Units 14:00 15:17 15:17 WBC 21.8 H (3.8-10.6) k/uL RBC 4.48 (4.30-5.90) m/uL Hgb 12.4 L (13.0-17.5) gm/dL Hct 37.0 L (39.0-53.0) % MCV 82.6 (80.0-100.0) fL MCH 27.8 (25.0-35.0) pg MCHC 33.6 (31.0-37.0) g/dL RDW 14.6 (11.5-15.5) % Plt Count 306 (150-450) k/uL MPV 7.8 Neutrophils % (Manual) 97 % Lymphocytes % (Manual) 2 % Monocytes % (Manual) 1 % Neutrophils # (Manual) 21.15 H (1.3-7.7) k/uL Lymphocytes # (Manual) 0.44 L (1.0-4.8) k/uL Monocytes # (Manual) 0.22 (0-1.0) k/uL Nucleated RBCs 0 (0-0) /100 WBC Manual Slide Review Performed PT 11.8 (10.0-12.5) sec INR 1.1 (<1.2) APTT 28.2 (22.0-30.0) sec VBG pH 7.41 (7.31-7.41) VBG pCO2 45 (37-51) mmHg VBG HCO3 29 H (24-28) mmol/L Sodium (137-145) mmol/L Potassium (3.5-5.1) mmol/L Chloride (98-107) mmol/L Carbon Dioxide (22-30) mmol/L Anion Gap mmol/L BUN (9-20) mg/dL Creatinine (0.66-1.25) mg/dL Est GFR (CKD-EPI)AfAm (>60 ml/min/1.73 sqM) Est GFR (CKD-EPI)NonAf (>60 ml/min/1.73 sqM) Glucose (74-99) mg/dL Plasma Lactic Acid Anthony (0.7-2.0) mmol/L Calcium (8.4-10.2) mg/dL Total Bilirubin (0.2-1.3) mg/dL AST (17-59) U/L ALT (4-49) U/L Alkaline Phosphatase (38-126) U/L Troponin I (0.000-0.034) ng/mL NT-Pro-B Natriuret Pep pg/mL Total Protein (6.3-8.2) g/dL Albumin (3.5-5.0) g/dL Urine Color Urine Appearance (Clear) Urine pH (5.0-8.0) Ur Specific Marion (1.001-1.035) Urine Protein (Negative) Urine Glucose (UA) (Negative) Urine Ketones (Negative) Urine Blood (Negative) Urine Nitrite (Negative) Urine Bilirubin (Negative) Urine Urobilinogen (<2.0) mg/dL Ur Leukocyte Esterase (Negative) Urine RBC (0-5) /hpf Urine WBC (0-5) /hpf Urine WBC Clumps (None) /hpf Ur Squamous Epith Cells (0-4) /hpf Urine Bacteria (None) /hpf Urine Mucus (None) /hpf Influenza Type A (PCR) (Not Detectd) Influenza Type B (PCR) (Not Detectd) RSV (PCR) (Not Detectd) SARS-CoV-2 (PCR) (Not Detectd) 07/01/23 07/01/23 07/01/23 Range/Units 15:17 15:17 15:17 WBC (3.8-10.6) k/uL RBC (4.30-5.90) m/uL Hgb (13.0-17.5) gm/dL Hct (39.0-53.0) % MCV (80.0-100.0) fL MCH (25.0-35.0) pg MCHC (31.0-37.0) g/dL RDW (11.5-15.5) % Plt Count (150-450) k/uL MPV Neutrophils % (Manual) % Lymphocytes % (Manual) % Monocytes % (Manual) % Neutrophils # (Manual) (1.3-7.7) k/uL Lymphocytes # (Manual) (1.0-4.8) k/uL Monocytes # (Manual) (0-1.0) k/uL Nucleated RBCs (0-0) /100 WBC Manual Slide Review PT (10.0-12.5) sec INR (<1.2) APTT (22.0-30.0) sec VBG pH (7.31-7.41) VBG pCO2 (37-51) mmHg VBG HCO3 (24-28) mmol/L Sodium 137 (137-145) mmol/L Potassium 5.0 (3.5-5.1) mmol/L Chloride 101 (98-107) mmol/L Carbon Dioxide 27 (22-30) mmol/L Anion Gap 9 mmol/L BUN 35 H (9-20) mg/dL Creatinine 0.81 (0.66-1.25) mg/dL Est GFR (CKD-EPI)AfAm >90 (>60 ml/min/1.73 sqM) Est GFR (CKD-EPI)NonAf 88 (>60 ml/min/1.73 sqM) Glucose 180 H (74-99) mg/dL Plasma Lactic Acid Anthony 1.1 (0.7-2.0) mmol/L Calcium 10.9 H (8.4-10.2) mg/dL Total Bilirubin 1.0 (0.2-1.3) mg/dL AST 71 H (17-59) U/L ALT 52 H (4-49) U/L Alkaline Phosphatase 101 (38-126) U/L Troponin I (0.000-0.034) ng/mL NT-Pro-B Natriuret Pep 766 pg/mL Total Protein 7.5 (6.3-8.2) g/dL Albumin 3.6 (3.5-5.0) g/dL Urine Color Yellow Urine Appearance Cloudy (Clear) Urine pH 6.5 (5.0-8.0) Ur Specific Marion 1.027 (1.001-1.035) Urine Protein 1+ H (Negative) Urine Glucose (UA) 4+ H (Negative) Urine Ketones Negative (Negative) Urine Blood Trace H (Negative) Urine Nitrite Positive (Negative) Urine Bilirubin Negative (Negative) Urine Urobilinogen <2.0 (<2.0) mg/dL Ur Leukocyte Esterase Large H (Negative) Urine RBC 8 H (0-5) /hpf Urine WBC 91 H (0-5) /hpf Urine WBC Clumps Many H (None) /hpf Ur Squamous Epith Cells 1 (0-4) /hpf Urine Bacteria Occasional H (None) /hpf Urine Mucus Rare H (None) /hpf Influenza Type A (PCR) (Not Detectd) Influenza Type B (PCR) (Not Detectd) RSV (PCR) (Not Detectd) SARS-CoV-2 (PCR) (Not Detectd) 07/01/23 07/01/23 Range/Units 15:17 15:17 WBC (3.8-10.6) k/uL RBC (4.30-5.90) m/uL Hgb (13.0-17.5) gm/dL Hct (39.0-53.0) % MCV (80.0-100.0) fL MCH (25.0-35.0) pg MCHC (31.0-37.0) g/dL RDW (11.5-15.5) % Plt Count (150-450) k/uL MPV Neutrophils % (Manual) % Lymphocytes % (Manual) % Monocytes % (Manual) % Neutrophils # (Manual) (1.3-7.7) k/uL Lymphocytes # (Manual) (1.0-4.8) k/uL Monocytes # (Manual) (0-1.0) k/uL Nucleated RBCs (0-0) /100 WBC Manual Slide Review PT (10.0-12.5) sec INR (<1.2) APTT (22.0-30.0) sec VBG pH (7.31-7.41) VBG pCO2 (37-51) mmHg VBG HCO3 (24-28) mmol/L Sodium (137-145) mmol/L Potassium (3.5-5.1) mmol/L Chloride (98-107) mmol/L Carbon Dioxide (22-30) mmol/L Anion Gap mmol/L BUN (9-20) mg/dL Creatinine (0.66-1.25) mg/dL Est GFR (CKD-EPI)AfAm (>60 ml/min/1.73 sqM) Est GFR (CKD-EPI)NonAf (>60 ml/min/1.73 sqM) Glucose (74-99) mg/dL Plasma Lactic Acid Anthony (0.7-2.0) mmol/L Calcium (8.4-10.2) mg/dL Total Bilirubin (0.2-1.3) mg/dL AST (17-59) U/L ALT (4-49) U/L Alkaline Phosphatase (38-126) U/L Troponin I 0.028 (0.000-0.034) ng/mL NT-Pro-B Natriuret Pep pg/mL Total Protein (6.3-8.2) g/dL Albumin (3.5-5.0) g/dL Urine Color Urine Appearance (Clear) Urine pH (5.0-8.0) Ur Specific Marion (1.001-1.035) Urine Protein (Negative) Urine Glucose (UA) (Negative) Urine Ketones (Negative) Urine Blood (Negative) Urine Nitrite (Negative) Urine Bilirubin (Negative) Urine Urobilinogen (<2.0) mg/dL Ur Leukocyte Esterase (Negative) Urine RBC (0-5) /hpf Urine WBC (0-5) /hpf Urine WBC Clumps (None) /hpf Ur Squamous Epith Cells (0-4) /hpf Urine Bacteria (None) /hpf Urine Mucus (None) /hpf Influenza Type A (PCR) Not Detected (Not Detectd) Influenza Type B (PCR) Not Detected (Not Detectd) RSV (PCR) Not Detected (Not Detectd) SARS-CoV-2 (PCR) Not Detected (Not Detectd) Disposition Clinical Impression: Sepsis, Pneumonia, Catheter-associated urinary tract infection Disposition: ADMITTED IP TO THIS HOSP Condition: Serious Is patient prescribed a controlled substance at d/c from ED?: No
[2023-07-01] MEDS: SODIUM CHLORIDE 0.9% 500 ML 500 ML IV SCH (15:38)
[2023-07-01 15:44] LABS: HGB 12.4 gm/dL (13.0-17.5); MCH 27.8 pg (25.0-35.0); MCHC 33.6 g/dL (31.0-37.0); MCV 82.6 fL (80.0-100.0); Mean Platelet Volume 7.8; Platelet Count 306 k/uL (150-450); RBC 4.48 m/uL (4.30-5.90); RDW 14.6 % (11.5-15.5); WBC 21.8 k/uL (3.8-10.6)
[2023-07-01 15:46] LABS: VBG PH 7.41 (7.31-7.41)
--- NOTE | 2023-07-01 15:50 | XR ---
EXAMINATION TYPE: XR chest 1V portable DATE OF EXAM: 07/01/2023 COMPARISON: 01/28/2023. HISTORY: Fall. TECHNIQUE: Single frontal view of the chest is obtained. IMPRESSION: There is patchy interstitial and airspace changes within the left mid to lower lung which may represe nt a developing pneumonia. Cardiac silhouette is moderately enlarged and the pulmonary vessels are within normal limits.
[2023-07-01 16:04] LABS: ALT 52 U/L (4-49); AST 71 U/L (17-59); African American GFR (CKD) >90 (>60 ml/min/1.73 sqM); Albumin 3.6 g/dL (3.5-5.0); Alkaline Phosphatase 101 U/L (38-126); Anion Gap 9 mmol/L; Blood Urea Nitrogen 35 mg/dL (9-20); Calcium 10.9 mg/dL (8.4-10.2); Carbon Dioxide 27 mmol/L (22-30); Chloride 101 mmol/L (98-107); Glucose 180 mg/dL (74-99); INR 1.1 (<1.2); Non-African American GFR(CKD) 88 (>60 ml/min/1.73 sqM); Partial Thromboplastin Time 28.2 sec (22.0-30.0); Prothrombin Time 11.8 sec (10.0-12.5); Sodium 137 mmol/L (137-145); Total Protein 7.5 g/dL (6.3-8.2)
[2023-07-01 16:09] LABS: Appearance,Urine Cloudy (Clear); Bacteria,Urine Occasional /hpf; Bilirubin,Urine Negative (Negative); Blood,Urine Trace (Negative); Color,Urine Yellow; Glucose,Urine (UA) 4+ (Negative); Ketones,Urine Negative (Negative); Leukocyte Esterase,Urine Large (Negative); Mucus,Urine Rare /hpf; Nitrite,Urine Positive (Negative); PH, Urine 6.5 (5.0-8.0); Protein,Urine 1+ (Negative); RBC,Urine 8 /hpf (0-5); Specific Gravity,Urine 1.027 (1.001-1.035); Squamous Epithelial Cell,Urine 1 /hpf (0-4); Urobilinogen,Urine <2.0 mg/dL (<2.0); WBC,Urine 91 /hpf (0-5)
[2023-07-01 16:10] LABS: NT-Pro-B-Type Natriuretic Pept 766 pg/mL
[2023-07-01 16:27] LABS: Lymphocytes # (M) 0.44 k/uL (1.0-4.8); Monocytes # (M) 0.22 k/uL (0-1.0); Neutrophils # (M) 21.15 k/uL (1.3-7.7); Neutrophils % (M) 97 %; Nucleated Red Blood Cells 0 /100 WBC (0-0); Total Cells Counted 100
[2023-07-01] MEDS: AZITHROMYCIN 500 MG in SODIUM CHLORIDE 0.9% 250 ML IVPB STA (16:42)
[2023-07-01] MEDS: ACETAMINOPHEN IV (For NPO) 1,000 MG in EMPTY BAG 1 BAG IVPB STA (17:21)
[2023-07-01] MEDS ORDERED: NALOXONE 0.4 MG/ML 1 ML VIAL IV PRN (17:51)
[2023-07-01 23:44] LABS: Glucose,Whole Blood 171 mg/dL (70-110)
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
[2023-07-02] MEDS ORDERED: DEXTROSE 50% SYRINGE 50 ML IVP PRN ×2 (01:15)
[2023-07-02] MEDS: carvediloL 3.125 MG TAB PO SCH (02:17)
[2023-07-02] MEDS: buPROPion XL 300 MG TAB.ER.24H PO SCH (02:17)
[2023-07-02] MEDS: ARTIFICIAL TEARS OINTMENT 3.5 GM TUBE BOTH EYES SCH (02:17)
[2023-07-02] MEDS: ALPRAZolam 0.5 MG TAB PO SCH (02:17)
[2023-07-02] MEDS: ATORVASTATIN 40 MG TAB PO SCH (02:17)
[2023-07-02] MEDS: LEVOTHYROXINE 50 MCG TAB PO SCH (02:18)
[2023-07-02] MEDS: ZIPRASIDONE 20 MG CAP PO SCH (02:18)
[2023-07-02] MEDS: MORPHINE SULFATE 4 MG/ML SYRINGE IVP PRN (04:25)
[2023-07-02] MEDS: INSULIN ASPART (NovoLOG) 100 UNIT/ML VIAL SQ SCH ×2 (06:17→16:55)
[2023-07-02] MEDS: PANTOPRAZOLE 40 MG TABLET PO SCH (06:17)
[2023-07-02] MEDS: allopurinoL 100 MG TAB PO SCH (06:17)
[2023-07-02] MEDS: SODIUM CHLORIDE 0.9% 1,000 ML IV SCH (06:17)
[2023-07-02] MEDS: carBAMazepine 200 MG TAB PO SCH (06:17)
[2023-07-02] MEDS: FINASTERIDE 5 MG TAB PO SCH (06:17)
[2023-07-02 06:30] LABS: Glucose,Whole Blood 133 mg/dL (70-110)
[2023-07-02] MEDS: SYMBICORT 80-4.5 MCG INHALER INHALATION SCH (07:36)
[2023-07-02] MEDS: IPRATROPIUM-ALBUTEROL 3 ML NEB INHALATION SCH (07:36)
[2023-07-02] MEDS: HEPARIN SODIUM,PORCINE 5,000 UNIT/ML 1 ML VIAL SQ SCH (09:17)
[2023-07-02] MEDS ORDERED: ZIPRASIDONE 20 MG VIAL IM PRN (09:42)
[2023-07-02] MEDS: LABETALOL 5 MG/ML VIAL MDV IVP SCH (10:07)
[2023-07-02 11:51] LABS: Glucose,Whole Blood 164 mg/dL (70-110)
[2023-07-02] MEDS: CLOPIDOGREL 75 MG TAB PO SCH (12:34)
[2023-07-02] MEDS ORDERED: ONDANSETRON 4 MG/2 ML VIAL IVP PRN (14:13)
[2023-07-02] MEDS ORDERED: MELATONIN 5 MG TABLET PO PRN (14:13)
[2023-07-02] MEDS ORDERED: ALBUTEROL NEBULIZED 2.5 MG/3 ML INHALATION PRN (14:13)
--- NOTE | 2023-07-02 14:19 | P.PN ---
Subjective Progress Note Date: 07/02/23 Patient is a 73-year-old male with known COPD on chronic home O2, diabetes, valvular heart disease, and functional paraplegia who is a chronic correction resident and was sent in for confusion and hypoxemia. In the ER he underwent an extensive evaluation. On arrival he was hypoxic and was requiring 15 L nonrebreather to maintain an O2 sat of 93%. He was febrile up to 100.6. Initial laboratory analysis was remarkable for white blood cell count 21.8, BUN 35. Influenza A/B/RSV/COVID-19 testing was negative. Initial chest x-ray demonstrated left lower lobe pneumonia. Patient was started on Zithromax and Rocephin. Arrangements were made for admission. He was seen by speech therapy and was noted to have dysphagia. He underwent MBS and was approved for honey thick liquids. Patient seen and examined at bedside. He is complaining of wanting to eat. He states his breathing is better than yesterday but is still coarse. No other questions currently. Vital signs reviewed General: Nontoxic, no distress, appears at stated age Cardiovascular: S1S2 reg, no murmur Lungs: Rhonchi bilateral , 3 word conversational dyspnea Abdominal: Soft, nontender to palpation, no guarding Ext: No gross muscle atrophy, no edema b/l lower extremities, bilateral lower extremity flexion contractures Neuro: CN II-XI grossly intact, no focal neuro deficits Psych: Alert, oriented, appropriate affect Assessment/Plan: Left lower lobe pneumonia, possible aspiration with gram-negative with sepsis Acute on chronic hypoxic respiratory failure Functional debility with [place] use at baseline Acute encephalopathy -Continue with Zithromax 500 mg daily dose #2 of 3, Rocephin 2 g IV every 24 hours dose #2 of 5 -Sputum culture, Legionella urine antigen -Consult pulmonary -Continue to hold Geodon and baclofen. Will resume Tegretol, and Neurontin. Continue to monitor mental status closely Chronic indwelling Altman catheter with possible urinary tract infection - on rocephin, await urine culture Diabetes mellitus type 2 with neuropathy -Jardiance 25 mg oral daily, hold semaglutide -Gabapentin 800 mg 3 times daily - SSI - Levemir 40 units at night (home dose 60) - Novolog 10 units with each meal (home dose 18) - dose reduced as I anticipate patient to consume less with modified diet. Hypertensive urgency -Coreg 3.125 mg twice daily Dyslipidemia -Fenofibrate 145 mg daily, Lipitor 40 mg at night Chronic: Obstructive sleep apnea with CPAP use Peripheral neuropathy History of C. difficile colitis Hypothyroidism Prior pulmonary embolism Imaging: None new Data Review: Labs reviewed from admission. Remarkable as listed above DVT prophylaxis: Heparin subcu Anticipated discharge date: Pending clinical course Anticipated discharge place: [facility] This dictation was prepared using [employer] voice recognition software. Though every attempt is made to correct errors during dictation some may still exist. Objective - Vital Signs Vital signs: Vital Signs Temp 98.6 F 07/02/23 12:29 Pulse 66 07/02/23 12:29 Resp 20 07/02/23 12:29 BP 163/80 07/02/23 12:29 Pulse Ox 96 07/02/23 12:29 FiO2 Intake & Output 07/01/23 07/02/23 07/02/23 18:59 06:59 18:59 Intake Total 10 Output Total 1275 650 Balance -1275 -640 Weight 95.254 kg 97.5 kg Intake: IV 10 Invasive Line 1 10 Output: Urine 1275 650 Other: Voiding Method Indwelling Catheter Indwelling Catheter - Labs CBC & Chem 7: 07/01/23 15:17 07/01/23 15:17 Labs: Abnormal Lab Results - Last 24 Hours (Table) 07/01/23 07/01/23 07/01/23 Range/Units 14:00 15:17 15:17 WBC 21.8 H (3.8-10.6) k/uL Hgb 12.4 L (13.0-17.5) gm/dL Hct 37.0 L (39.0-53.0) % Neutrophils # (Manual) 21.15 H (1.3-7.7) k/uL Lymphocytes # (Manual) 0.44 L (1.0-4.8) k/uL VBG HCO3 29 H (24-28) mmol/L BUN 35 H (9-20) mg/dL Glucose 180 H (74-99) mg/dL POC Glucose (mg/dL) (70-110) mg/dL Calcium 10.9 H (8.4-10.2) mg/dL AST 71 H (17-59) U/L ALT 52 H (4-49) U/L Urine Protein (Negative) Urine Glucose (UA) (Negative) Urine Blood (Negative) Ur Leukocyte Esterase (Negative) Urine RBC (0-5) /hpf Urine WBC (0-5) /hpf Urine WBC Clumps (None) /hpf Urine Bacteria (None) /hpf Urine Mucus (None) /hpf 07/01/23 07/01/23 07/02/23 Range/Units 15:17 23:41 06:12 WBC (3.8-10.6) k/uL Hgb (13.0-17.5) gm/dL Hct (39.0-53.0) % Neutrophils # (Manual) (1.3-7.7) k/uL Lymphocytes # (Manual) (1.0-4.8) k/uL VBG HCO3 (24-28) mmol/L BUN (9-20) mg/dL Glucose (74-99) mg/dL POC Glucose (mg/dL) 171 H 133 H (70-110) mg/dL Calcium (8.4-10.2) mg/dL AST (17-59) U/L ALT (4-49) U/L Urine Protein 1+ H (Negative) Urine Glucose (UA) 4+ H (Negative) Urine Blood Trace H (Negative) Ur Leukocyte Esterase Large H (Negative) Urine RBC 8 H (0-5) /hpf Urine WBC 91 H (0-5) /hpf Urine WBC Clumps Many H (None) /hpf Urine Bacteria Occasional H (None) /hpf Urine Mucus Rare H (None) /hpf 07/02/23 Range/Units 11:49 WBC (3.8-10.6) k/uL Hgb (13.0-17.5) gm/dL Hct (39.0-53.0) % Neutrophils # (Manual) (1.3-7.7) k/uL Lymphocytes # (Manual) (1.0-4.8) k/uL VBG HCO3 (24-28) mmol/L BUN (9-20) mg/dL Glucose (74-99) mg/dL POC Glucose (mg/dL) 164 H (70-110) mg/dL Calcium (8.4-10.2) mg/dL AST (17-59) U/L ALT (4-49) U/L Urine Protein (Negative) Urine Glucose (UA) (Negative) Urine Blood (Negative) Ur Leukocyte Esterase (Negative) Urine RBC (0-5) /hpf Urine WBC (0-5) /hpf Urine WBC Clumps (None) /hpf Urine Bacteria (None) /hpf Urine Mucus (None) /hpf
[2023-07-02 16:25] LABS: Glucose,Whole Blood 117 mg/dL (70-110)
[2023-07-02] MEDS: HYDROcodone/APAP 5-325MG 1 EACH TAB PO PRN (16:54)
[2023-07-02] MEDS: AZITHROMYCIN 500 MG in SODIUM CHLORIDE 0.9% 250 ML IVPB SCH (16:55)
[2023-07-02] MEDS ORDERED: INSULIN ASPART (NovoLOG) 100 UNIT/ML VIAL SQ SCH (17:30)
--- NOTE | 2023-07-02 18:57 | FL ---
EXAMINATION TYPE: FL barium swallow w video DATE OF EXAM: 07/02/2023 CLINICAL HISTORY: 73-year-old male history of CVA with sepsis and pneumonia. COPD. Rule out aspiratio n. TECHNIQUE: Deglutition study is performed utilizing honey and nectar thick liquid barium, barium thi ck puree Total fluoroscopy time: 1 minute 43 seconds Total images: None. Real-time fluoroscopy support was provided to speech pathology. DOSE AREA PRODUCT (DAP) UGY*M,MGY*CM: 189.3 COMPARISON: None. FINDINGS: There is poor epiglottic movement and reduced cricopharyngeal opening. Severe vallecular residuals ar e noted but improves over the course of the exam. There is absent posterior pharyngeal wall peristals is. There is silent aspiration with nectar liquids. IMPRESSION: 1. Severe vallecular residuals which improves over the course of the exam. 2. Absent pharyngeal peristalsis. Poor epiglottic movement and reduced CP opening. 3. Silent aspiration with nectar liquids. Please refer to speech therapist notes for further details if necessary.
[2023-07-02 19:55] LABS: Glucose,Whole Blood 97 mg/dL (70-110)
[2023-07-02] MEDS: FENOFIBRATE 160 MG TAB PO SCH (19:58)
[2023-07-02] MEDS: GABAPENTIN 400 MG CAP PO SCH (19:58)
[2023-07-02] MEDS: TAMSULOSIN 0.4 MG CAP.ER.24H PO SCH (19:58)
[2023-07-02] MEDS: INSULIN DETEMIR (LEVEMIR) 100 UNIT/ML SYR SQ SCH (19:58)
[2023-07-02] MEDS ORDERED: BACLOFEN 10 MG TAB PO SCH (21:00)
[2023-07-02] MEDS ORDERED: INSULIN DETEMIR (LEVEMIR) 100 UNIT/ML SYR SQ SCH (21:00)
[2023-07-02] MEDS ORDERED: guaiFENesin-DM 100-10MG/5ML 10 ML CUP PO PRN (21:27)
[2023-07-02] MEDS: MORPHINE SULFATE 2 MG/ML SYRINGE IVP PRN (21:36)
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
[2023-07-03] MEDS: methylPREDNISolone SOD SUCCI 125 MG/2 ML VIAL IV SCH (05:58)
[2023-07-03] MEDS: PIPERACILLIN-TAZOBACTAM 3.375 GM in SODIUM CHLORIDE 0.9% 100 ML IVPB SCH (05:58)
[2023-07-03] MEDS: DAPAGLIFLOZIN PROPANEDIOL 10 MG TABLET PO SCH (05:59)
[2023-07-03] MEDS: FLUTICASONE 50MCG/SPRAY NASAL 16GM EA NOSTRIL SCH (06:09)
[2023-07-03 06:18] LABS: Glucose,Whole Blood 122 mg/dL (70-110)
[2023-07-03] MEDS: SYMBICORT 160-4.5 MCG INHALER INHALATION SCH (08:54)
[2023-07-03 09:48] LABS: HCT 35.8 % (39.0-53.0); HGB 11.2 gm/dL (13.0-17.5); Hypochromasia Slight; MCH 25.9 pg (25.0-35.0); MCHC 31.2 g/dL (31.0-37.0); MCV 83.2 fL (80.0-100.0); Mean Platelet Volume 8.2; Platelet Count 281 k/uL (150-450); RDW 14.3 % (11.5-15.5); WBC 12.9 k/uL (3.8-10.6)
[2023-07-03 10:05] LABS: ALT 29 U/L (4-49); AST 40 U/L (17-59); African American GFR (CKD) >90 (>60 ml/min/1.73 sqM); Albumin 3.1 g/dL (3.5-5.0); Alkaline Phosphatase 84 U/L (38-126); Anion Gap 8 mmol/L; Blood Urea Nitrogen 23 mg/dL (9-20); Carbon Dioxide 26 mmol/L (22-30); Chloride 102 mmol/L (98-107); Glucose 125 mg/dL (74-99); Non-African American GFR(CKD) >90 (>60 ml/min/1.73 sqM); Potassium 4.4 mmol/L (3.5-5.1); Sodium 136 mmol/L (137-145); Total Bilirubin 0.6 mg/dL (0.2-1.3); Total Protein 6.7 g/dL (6.3-8.2)
[2023-07-03 11:45] LABS: Glucose,Whole Blood 150 mg/dL (70-110)
[2023-07-03 12:55] VITALS: BMI 29.9
[2023-07-03] MEDS: BENZOCAINE/MENTHOL LOZENG 1 EACH LOZENGE MUCOUS MEM PRN (13:50)
--- NOTE | 2023-07-03 14:12 | P.PN ---
Subjective Progress Note Date: 07/03/23 Patient is a 73-year-old male with known COPD on chronic home O2, diabetes, valvular heart disease, and functional paraplegia who is a chronic [facility] resident and was sent in for confusion and hypoxemia. In the ER he underwent an extensive evaluation. On arrival he was hypoxic and was requiring 15 L nonrebreather to maintain an O2 sat of 93%. He was febrile up to 100.6. Initial laboratory analysis was remarkable for white blood cell count 21.8, BUN 35. Influenza A/B/RSV/COVID-19 testing was negative. Initial chest x-ray demonstrated left lower lobe pneumonia. Patient was started on Zithromax and Rocephin. Arrangements were made for admission. He was seen by speech therapy and was noted to have dysphagia. He underwent MBS and was approved for honey thick liquids. He quickly improved and O2 requirements were down to 5L NC by the morning of 07/03/23. Patient seen and examined at bedside. He states he is breathing much better. He is asking to be discharged. He denies any nausea or vomiting. He still has a cough which he states is getting better. He was complaining of some buttock and leg pain. Vital signs reviewed General: Nontoxic, no distress, appears at stated age Cardiovascular: S1S2 reg, no murmur Lungs: Rhonchi bilateral , 3 word conversational dyspnea Abdominal: Soft, nontender to palpation, no guarding Ext: No gross muscle atrophy, no edema b/l lower extremities, bilateral lower extremity flexion contractures Neuro: CN II-XI grossly intact, no focal neuro deficits Psych: Alert, oriented, appropriate affect Assessment/Plan: Left lower lobe pneumonia, possible aspiration with gram-negative with sepsis Acute exacerbation of COPD Acute on chronic hypoxic respiratory failure Functional debility with [place] use at baseline Acute encephalopathy - Continue with Zithromax 500 mg daily dose #3 - Patient reached clinical stability using Rocephin and Zithromax only. Will DC Zosyn and resume Rocephin 2 grams IVPB D #4, especially given hx of C diff. - Sputum culture, Legionella urine antigen - Pulm recs reviewed added Solumedrol 60 mg IVP q 6 hours and symbicort - Continue Tegretol, and Neurontin. - Resume Geodon 20 mg 3 times daily, baclofen 10 mg twice daily Chronic indwelling Alt[place] catheter with possible urinary tract infection - on rocephin, await urine culture Left posterior head and neck pain - check CT head and cervical spine as patient with recent tooth extraction Diabetes mellitus type 2 with neuropathy -Jardiance 25 mg oral daily, hold semaglutide -Gabapentin 800 mg 3 times daily - SSI - Levemir 40 units at night (home dose 60) - Novolog 10 units with each meal (home dose 18) - dose reduced as I anticipate patient to consume less with modified diet. Hypertensive urgency -Coreg 3.125 mg twice daily - follow BP Dyslipidemia -Fenofibrate 145 mg daily, Lipitor 40 mg at night Chronic: Obstructive sleep apnea with CPAP use Peripheral neuropathy History of C. difficile colitis Hypothyroidism Prior pulmonary embolism Imaging: None new Data Review: Labs reviewed from today include CBC and CMP which are remarkable for WBC 12.9, BUN 23, Cr 0.57 DVT prophylaxis: Heparin subcu Anticipated discharge date: Pending clinical course Anticipated discharge place: Return of [facility] This dictation was prepared using [employer] voice recognition software. Though every attempt is made to correct errors during dictation some may still exist. Objective - Vital Signs Vital signs: Vital Signs Temp 96.6 F L 07/03/23 11:39 Pulse 89 07/03/23 11:41 Resp 20 07/03/23 12:38 BP 146/74 07/03/23 11:39 Pulse Ox 97 07/03/23 12:38 FiO2 Intake & Output 07/02/23 07/03/23 07/03/23 18:59 06:59 18:59 Intake Total 10 358 Output Total 1250 475 600 Balance -1240 -475 -242 Weight 97.5 kg Intake: IV 10 Invasive Line 1 10 Oral 358 Output: Urine 1250 475 600 Other: Voiding Method Indwelling Catheter Indwelling Catheter Indwelling Catheter - Labs CBC & Chem 7: 07/03/23 08:29 07/03/23 08:29 Labs: Abnormal Lab Results - Last 24 Hours (Table) 07/02/23 07/03/23 07/03/23 Range/Units 16:21 06:16 08:29 WBC 12.9 H (3.8-10.6) k/uL Hgb 11.2 L (13.0-17.5) gm/dL Hct 35.8 L (39.0-53.0) % Sodium (137-145) mmol/L BUN (9-20) mg/dL Creatinine (0.66-1.25) mg/dL Glucose (74-99) mg/dL POC Glucose (mg/dL) 117 H 122 H (70-110) mg/dL Albumin (3.5-5.0) g/dL 07/03/23 07/03/23 Range/Units 08:29 11:42 WBC (3.8-10.6) k/uL Hgb (13.0-17.5) gm/dL Hct (39.0-53.0) % Sodium 136 L (137-145) mmol/L BUN 23 H (9-20) mg/dL Creatinine 0.57 L (0.66-1.25) mg/dL Glucose 125 H (74-99) mg/dL POC Glucose (mg/dL) 150 H (70-110) mg/dL Albumin 3.1 L (3.5-5.0) g/dL Microbiology - Last 24 Hours (Table) 07/01/23 15:17 Urine Culture - Preliminary Urine,Voided Gram Neg Bacilli 07/01/23 14:15 Blood Culture - Preliminary Blood 07/01/23 14:00 Blood Culture - Preliminary Blood
--- NOTE | 2023-07-03 16:18 | CT ---
EXAMINATION TYPE: CT brain cspine wo con DATE OF EXAM: 07/03/2023 COMPARISON: 01/28/2023 HISTORY: 73-year-old male Back LT side head pain and neck pain. RN for patient said he did not fall. CT DLP: 1712.4 mGycm Automated exposure control for dose reduction was used. Technique: Examination of the head was done in axial plane without intravenous contrast. Coronal and sagittal reconstructions performed. CT of the cervical spine was obtained in axial plane without intravenous injection of contrast mater ial. Coronal and sagittal reformatted images were obtained from the axial views for evaluation of f ractures, spinal alignment and canal. FINDINGS: Head: There is no evidence of acute intracranial hemorrhage, acute ischemic changes, mass, mass-effect, or extra-axial fluid collection. There is no effacement of cerebral sulci or basal subarachnoid cister ns. Moderate to severe hydrocephalus with evidence ratio calculated 0.45 is unchanged. There is no mi dline shift. Rondon-white matter distinction is preserved. Mild mucosal thickening throughout the left-sided paranasal sinuses. There is opacification of the le ft mastoid air cells and left middle ear cavity and contiguous opacification throughout the left exte rnal auditory canal questionable asymmetric soft tissue prominence posterior left nasopharynx, axial image 11. Cervical spine: No craniocervical junction abnormality, predental space widening, or prevertebral soft tissue swellin g. Degenerative change at the C1 dens articulation. Straightening of the normal cervical lordosis but with preserved alignment. There is moderate multilevel spondylotic change including decision plate degenerative change and unco vertebral joint/facet arthropathy. More advanced changes towards the right in the cervical spine. Multiple disc osteophyte complexes and some levels of ligamentum flavum thickening in the mid and low er cervical spine. Unable to exclude a focal moderate to severe spinal canal stenosis at C4-C5 and moderate at both C5-C 6 and C6/C7. Mild C3-C4. No acute fracture of the cervical spine. There are variable moderate neuroforaminal stenoses throughout mid and lower cervical spine. Patchy opacities noted in the visualized upper lungs. A prominent secretions layering within the trac hea. Sagittal and coronal reformatted images confirm above findings. COMBINED IMPRESSION: Brain: 1. Unchanged hydrocephalus, Morin ratio calculated at 0.45. Possibly due to central cerebral atrophy. Correlate to exclude NPH. No acute intracranial abnormality seen. 2. Complete opacification of the left-sided mastoid air cells and middle ear cavity. Opacification ex tending even out through the left external auditory canal. Recommend ENT evaluation. 3. Possible slight asymmetric soft tissue prominence along the posterior left nasopharynx. If there i s an underlying mucosal lesion here, this could account for obstruction of the left tubotympanic syst em. Again, ENT evaluation. Cervical spine: 4. No acute fracture or malalignment of the cervical spine. 5. Moderate to advanced spondylotic change with suspected moderate to severe spinal canal stenosis at C4-C5. Additional changes as outlined above. 6. Prominent layering secretions within the patient's trachea. Correlate to exclude aspiration especi ally given patchy infiltrates in the visualized upper lungs.
[2023-07-03 16:48] LABS: Glucose,Whole Blood 162 mg/dL (70-110)
[2023-07-03] MEDS: ZIPRASIDONE 20 MG CAP PO SCH (17:32)
[2023-07-03] MEDS: BACLOFEN 10 MG TAB PO SCH (17:37)
[2023-07-03] MEDS: ARTIFICIAL TEARS-HYPROMELLOSE DROPS 15 ML BTL BOTH EYES SCH (20:53)
[2023-07-03 20:56] LABS: Glucose,Whole Blood 198 mg/dL (70-110)
[2023-07-03 23:16] VITALS: RESP 18
[2023-07-03] MEDS: ACETAMINOPHEN TAB 325 MG TAB PO PRN (23:50)
[2023-07-04] MEDS: MAG HYDROX/AL HYDROX/SIMETH 30 ML CUP PO SCH (02:06)
[2023-07-04 07:07] LABS: Glucose,Whole Blood 154 mg/dL (70-110)
[2023-07-04 07:58] VITALS: BP 123/52; TEMP 97.6
--- NOTE | 2023-07-04 10:28 | P.PN ---
Subjective Progress Note Date: 07/04/23 Principal diagnosis: Urinary tract infection. I am seeing this patient in new consultation today 07/03/2023 after he was sent in from his [facility] for evaluation of altered mental status, fever, and hypoxia. Patient is a 73-year-old white male with past medical history sign ificant for COPD, chronic hypoxemic respiratory failure maintained on 3 to 5 L continuously, obstructive sleep apnea, CVA/TIA, DVT/PE, diabetes mellitus, hypertension, coronary artery disease with previous HI, hypothyroidism, among other things. The patient is not a great historian. Unsure of his baseline mentation. He is bedridden. According to the ER documentation he was sent in for evaluation of fever and hypoxia. He was noted to have oxygen saturation in the 80s and oriented only to self at that time. Patient is currently lying in bed, 10 liters high flow cannula, in no acute respiratory distress. He only answers some of my questions, states it hurts to talk. He did have a swallow evaluation which showed severe vallecular residuals, absent pharyngeal peristalsis. Poor epiglottic movement and reduced CP opening. There was silent aspiration with nectar liquids. Chest x-ray shows patchy interstitial and airspace changes within the left lower lung mukherjee which could represent developing pneumonia and right hemidiaphragm elevation with associated atelectasis.. There is stable cardiomegaly. He was negative for influenza, RSV, COVID. VBG shows a pH of 7.41 and pCO2 of 45. CBC on arrival: WBC count 21.8, hemoglobin 12.4, hematocrit 37, platelets 306. BMP on arrival: Sodium 137, potassium 5, chloride 101, serum bicarb 27, BUN 35, creatinine 0.81, glucose 180. LFTs mildly elevated. Troponin 0.028. NT proBNP 766. Urinalysis appears consistent with urinary tract infection. Positive for leukocytes, pyuria, and nitrates. Patient has a chronic indwelling urinary catheter. He denies any burning, hematuria, discharge. Denies flank pain. He is currently empirically covered on a combination of azithromycin and Rocephin for the above. Did have a temperature with a Tmax of 100.6 F on arrival, currently afebrile. Remaining vital signs stable. Progress note dated July 04, 2023. 73-year-old male who was seen in consultation yesterday. This is a patient who was seen for mental status changes, fever, and low saturations. The patient does have a history of chronic hypoxemic respiratory failure, currently on home O2, sleep apnea, CVA, DVT, pulmonary embolism, diabetes mellitus, hypertension, coronary artery disease, and previous myocardial infarction. The patient is seen today in room 355. He is on 4 L of oxygen. He is getting saline at 50 cc an hour. The patient is currently on Rocephin for suspected urinary tract infection. The patient's procalcitonin level was 0.43. Urine showed evidence of gram-negative bacilli. No new lab data today other than a glucose of 154. Objective - Vital Signs Vital signs: Vital Signs Temp 97.6 F 07/04/23 07:47 Pulse 89 07/04/23 08:38 Resp 18 07/04/23 08:00 BP 123/52 07/04/23 07:47 Pulse Ox 95 07/04/23 08:28 FiO2 Intake & Output 07/03/23 07/04/23 07/04/23 18:59 06:59 18:59 Intake Total 598 110 Output Total 600 550 Balance -2 -440 Weight 97.5 kg Intake: IV 10 Invasive Line 1 10 Oral 598 100 Output: Urine 600 550 Other: Voiding Method Indwelling Catheter Indwelling Catheter Indwelling Catheter - Exam No acute distress, diffuse. No respiratory distress. Currently on 4 L. HEENT examination is grossly unremarkable. Mucous membranes are moist. No oral lesions. Neck supple. Full range of motion. No adenopathy thyromegaly or neck vein distention. Cardiovascular examination reveals regular rhythm rate. S1-S2 normal. No S3 or S4. No discernible murmur noted. Heart sounds distant. Heart rate 89 bpm. Lungs reveal scattered moderate diffuse bilateral rhonchi. No wheezes. Breath sounds equal bilaterally. Saturations are 95% on 4 L. Abdomen soft bowel sounds are heard. No masses or tenderness. Extremities are intact. No cyanosis clubbing or edema. Skin is without rash or lesion. Neurologic examination is brief but nonfocal. - Labs CBC & Chem 7: 07/03/23 08:29 07/03/23 08:29 Labs: Abnormal Lab Results - Last 24 Hours (Table) 07/03/23 07/03/23 07/03/23 Range/Units 08:29 08:29 11:42 POC Glucose (mg/dL) 150 H (70-110) mg/dL Hemoglobin A1c 9.1 H (<=6.0) % Procalcitonin 0.43 H (0.02-0.09) ng/mL 07/03/23 07/03/23 07/04/23 Range/Units 16:48 20:54 07:05 POC Glucose (mg/dL) 162 H 198 H 154 H (70-110) mg/dL Hemoglobin A1c (<=6.0) % Procalcitonin (0.02-0.09) ng/mL Microbiology - Last 24 Hours (Table) 07/01/23 14:15 Blood Culture - Preliminary Blood 07/01/23 14:00 Blood Culture - Preliminary Blood 07/02/23 20:00 Gram Stain - Preliminary Sputum 07/01/23 15:17 Urine Culture - Preliminary Urine,Voided Gram Neg Bacilli Assessment and Plan Assessment: Acute on chronic hypoxemic respiratory failure, with suspected left lower lobe pneumonia, rule out aspiration pneumonia. Suspect urinary tract infection, secondary to gram-negative bacilli. Suspect acute metabolic encephalopathy, secondary to above. Leukocytosis. Acute COPD exacerbation. Chronic hypoxemic respiratory failure, normally maintained on 3 to 5 L/min nasal cannula. Obstructive sleep apnea. History of DVT/PE. History of frequent urinary tract infections and chronic indwelling urinary catheter. Diabetes mellitus, type II. Hypertension. History of hyperlipidemia. History of hypothyroidism. Chronic medical debility. History of decubitus pressure ulcer. Plan: Plan dated July 04, 2023. The patient is seen today in room 355. The patient is currently on 4 L of oxygen. He is getting saline at 50 cc an hour. The patient continues on Rocephin. The patient's urine is positive for gram-negative bacilli. Procalcitonin level was 0.43. The patient may have in addition to a urinary tract infection, and pneumonia. Labs, x-rays, medications are reviewed. The patient's overall prognosis remains very guarded. We will continue to follow the patient, and make recommendations along the way. Time with Patient: Less than 30
[2023-07-04 11:29] LABS: Glucose,Whole Blood 137 mg/dL (70-110)
[2023-07-04 12:47] LABS: HCT 33.7 % (39.0-53.0); HGB 11.1 gm/dL (13.0-17.5); MCH 26.8 pg (25.0-35.0); MCHC 32.9 g/dL (31.0-37.0); MCV 81.5 fL (80.0-100.0); Mean Platelet Volume 7.8; Platelet Count 269 k/uL (150-450); RBC 4.13 m/uL (4.30-5.90); WBC 9.2 k/uL (3.8-10.6)
[2023-07-04 12:58] LABS: Potassium 4.6 mmol/L (3.5-5.1)
[2023-07-04 12:59] LABS: African American GFR (CKD) >90 (>60 ml/min/1.73 sqM); Anion Gap 5 mmol/L; Blood Urea Nitrogen 17 mg/dL (9-20); Calcium 9.4 mg/dL (8.4-10.2); Carbon Dioxide 28 mmol/L (22-30); Chloride 97 mmol/L (98-107); Glucose 129 mg/dL (74-99); Non-African American GFR(CKD) >90 (>60 ml/min/1.73 sqM); Sodium 130 mmol/L (137-145)
--- NOTE | 2023-07-04 13:57 | P.DS ---
Providers Date of admission: 07/01/23 17:51 Expected date of discharge: 07/04/23 Attending physician: Kary Dill DO Consults: 07/02/23 14:07 Consult Physician Routine Consulting Provider: Srini Urrutia Consult Reason/Comments: hypoxia with PNA Do you want consulting provider notified?: Yes 07/04/23 08:16 Consult Physician Routine Consulting Provider: Ramirez Mcnamara Consult Reason/Comments: opacification of the left middle ear, mastoid cells, and left EAC Do you want consulting provider notified?: Yes Primary care physician: [facility] Course: Discharge Diagnosis: Left lower lobe pneumonia, possible aspiration with gram-negative with sepsis Acute exacerbation of COPD Acute on chronic hypoxic respiratory failure Probable left nasopharynx lesion with opacification of left mastoid air cells, middle ear cavity, and external auditory canal if needs urgent ENT follow-up Functional debility with [place] use at baseline Acute encephalopathy Chronic indwelling Altman catheter, doubt urinary tract infection Left posterior head and neck pain Diabetes mellitus type 2 with neuropathy Hypertensive urgency Dyslipidemia Obstructive sleep apnea with CPAP use Peripheral neuropathy History of C. difficile colitis Hypothyroidism Prior pulmonary embolism Hospital Course: Patient is a 73-year-old male with known COPD on chronic home O2, diabetes, valvular heart disease, and functional paraplegia who is a chronic residential resident and was sent in for confusion and hypoxemia. In the ER he underwent an extensive evaluation. On arrival he was hypoxic and was requiring 15 L nonrebreather to maintain an O2 sat of 93%. He was febrile up to 100.6. Initial laboratory analysis was remarkable for white blood cell count 21.8, BUN 35. Influenza A/B/RSV/COVID-19 testing was negative. Initial chest x-ray demonstrated left lower lobe pneumonia. Patient was started on Zithromax and Rocephin. Arrangements were made for admission. He was seen by speech therapy and was noted to have dysphagia. He underwent MBS and was approved for honey thick liquids. He quickly improved and O2 requirements were down to 5L NC by the morning of 07/03/23. He underwent CT head and cervical spine which showed possible soft tissue prominence in the left nasopharynx with resulting left mastoid air cell, middle ear vera nail, and even external auditory canal opacification. ENT was contacted and they recommend outpatient scope as they are unable to perform this in the hospital-they believe he likely has a nasal polyp that is blocking his drainage. Discussed with family and they are aware of the importance of following up with ENT to start on a scope for this. He was down to his home O2 requirements. He was subsequently determined stable for discharge. Follow-up: Patient will complete 2 more days of Vantin to complete 7 days of antibiotics for his pneumonia. Pe will complete 5 dyas of prednisone.The patient was asymptomatic with no bladder dysfunction and no gross pyuria. Therefore it was felt that his urinalysis was likely due to contamination. He will also need to follow-up with ENT on discharge. Family is aware. Patient seen and examined at bedside. Doing well, wanting to go home. breathing is much better, we discused the above finding for his CT head and neck, they were also discussed with his daughter. Vital signs reviewed and stable. General: Nontoxic, no distress, appears at stated age Cardiovascular: S1S2 reg, no murmur Lungs: Course bs bilateral, No conversational dyspnea Abdominal: Soft, nontender to palpation, no guarding Ext+ gross muscle atrophy, no edema b/l lower extremities, bilateral lower extremity flexion contractures Neuro: CN II-XI grossly intact, no focal neuro deficits Psych: Alert, oriented, appropriate affect A total of 45 minutes of time were spent preparing this complex discharge summary. Patient was discharged on 07/04/23. This dictation was prepared using [employer] voice recognition software. Though every attempt is made to correct errors during dictation some may still exist. Patient Condition at Discharge: Stable Plan - Discharge Summary Discharge Rx Participant: No New Discharge Prescriptions: New Cefpodoxime Proxetil [Vantin] 200 mg PO Q12HR #4 tab predniSONE [Deltasone] 60 mg PO DAILY #15 tab Insulin Detemir (Levemir) [Levemir] 40 unit SQ HS each HYDROcodone/APAP 7.5-325MG [Canyon 7.5-325] 1 tab PO Q6HR PRN 3 Days #12 tab PRN Reason: Pain INSULIN ASPART (NovoLOG) [NovoLOG (formulary)] 10 unit SQ TID-W/MEALS each Continue Levothyroxine Sodium [Synthroid] 50 mcg PO HS Finasteride [Proscar] 5 mg PO DAILY@0700 Sertraline [Zoloft] 200 mg PO DAILY@0700 allopurinoL [Zyloprim] 100 mg PO BID@0700,2100 Tamsulosin [Flomax] 0.8 mg PO HS bisacodyL [Dulcolax] 10 mg RECTAL Q72H PRN PRN Reason: Constipation carBAMazepine [TEGretol] 200 mg PO TID@0700,1200,2100 Fluticasone/Vilanterol [Breo Ellipta 100-25 Mcg Inhaler] 1 puff INHALATION RT-DAILY@0700 Magnesium Hydroxide [Milk of Magnesia] 2,400 mg PO Q48H PRN PRN Reason: Constipation Simethicone [Gas-X] 125 mg PO DAILY PRN PRN Reason: gastric bloating Atorvastatin [Lipitor] 40 mg PO HS Polyvinyl Alcohol/Povidone [Clear Eyes Natural Tears Drop] 1 drop BOTH EYES TID@0700,1200,2099 Loratadine 10 mg PO DAILY PRN PRN Reason: Congestion carvediloL [Coreg] 3.125 mg PO BID@0700,2100 Artificial Tears Ointment [Lubrifresh Pm Ointment] 0.25 inch OPHTHALMIC HS Hydrocortisone [Anusol-Hc] 1 applic RECTAL Q6H PRN PRN Reason: ANAL INFLAMMATION Omeprazole 20 mg PO DAILY@0700 Methenamine Hippurate 1 gm PO BID@0700,2100 L.acidoph,Paracasei, B.lactis [Probiotic] 1 cap PO BID Ipratropium-Albuterol Nebulize [Duoneb 0.5 mg-3 mg/3 ml Soln] 3 ml INHALATION RT-QID Gabapentin 800 mg PO TID@0700,1200,2100 #12 tab buPROPion XL [Wellbutrin XL] 300 mg PO HS Clopidogrel Bisulfate [Plavix] 75 mg PO DAILY@1200 Ziprasidone [Geodon] 20 mg PO TID@0700,1200,2100 Mag Hydrox/Al Hydrox/Simeth [Maalox] 30 ml PO TID-W/MEALS guaiFENesin-DM 100-10MG/5ML [Robitussin DM] 10 ml PO Q4H PRN PRN Reason: Cough Ergocalciferol [Vitamin D2 (1250 Mcg = 86307 Iu)] 1,250 mcg PO SA Empagliflozin [Jardiance] 25 mg PO DAILY@0700 Albuterol Sulfate [Albuterol Sulfate Hfa] 2 puff INHALATION RT-Q4H PRN PRN Reason: Shortness Of Breath Semaglutide [Ozempic] 0.5 mg SQ MO Loperamide [Imodium] 2 mg PO DIRECTED PRN PRN Reason: Diarrhea icosapent ethyL [Icosapent Ethyl] 4 gm PO HS Fluticasone Nasal Trevor [Flonase Nasal Trevor] 1 spray EA NOSTRIL DAILY@0700 Fenofibrate Nanocrystallized [Tricor] 145 mg PO HS Baclofen 10 mg PO BID@0700,2099 Benzocaine 20 % Gel [Orajel] 1 applic MM Q6H PRN PRN Reason: dental pain ALPRAZolam [Xanax] 0.5 mg PO HS #3 tab Discontinued Insulin Aspart [NovoLOG Flexpen] 18 units SQ TID-W/MEALS Azithromycin [Zithromax] 250 mg PO DAILY@1200 Insulin Glargine,Hum.rec.anlog [Semglee Pen] 60 unit SQ HS Discharge Medication List Finasteride [Proscar] 5 mg PO DAILY@0700 12/02/14 [History] Levothyroxine Sodium [Synthroid] 50 mcg PO HS 12/02/14 [History] Sertraline [Zoloft] 200 mg PO DAILY@0700 12/02/14 [History] Tamsulosin [Flomax] 0.8 mg PO HS 12/02/14 [History] allopurinoL [Zyloprim] 100 mg PO BID@0700,2100 12/02/14 [History] Fluticasone/Vilanterol [Breo Ellipta 100-25 Mcg Inhaler] 1 puff INHALATION RT- DAILY@0700 07/03/20 [History] Magnesium Hydroxide [Milk of Magnesia] 2,400 mg PO Q48H PRN 07/03/20 [History] Simethicone [Gas-X] 125 mg PO DAILY PRN 07/03/20 [History] bisacodyL [Dulcolax] 10 mg RECTAL Q72H PRN 07/03/20 [History] carBAMazepine [TEGretol] 200 mg PO TID@0700,1200,209907/03/20 [History] Atorvastatin [Lipitor] 40 mg PO HS 01/14/21 [History] Clopidogrel Bisulfate [Plavix] 75 mg PO DAILY@1200 01/14/21 [History] Ziprasidone [Geodon] 20 mg PO TID@0700,1200,209901/14/21 [History] buPROPion XL [Wellbutrin XL] 300 mg PO HS 01/14/21 [History] Albuterol Sulfate [Albuterol Sulfate Hfa] 2 puff INHALATION RT-Q4H PRN 08/24/22 [History] Artificial Tears Ointment [Lubrifresh Pm Ointment] 0.25 inch OPHTHALMIC HS 08/24/22 [History] Empagliflozin [Jardiance] 25 mg PO DAILY@0700 08/24/22 [History] Ergocalciferol [Vitamin D2 (1250 Mcg = 89875 Iu)] 1,250 mcg PO SA 08/24/22 [History] Loratadine 10 mg PO DAILY PRN 08/24/22 [History] Mag Hydrox/Al Hydrox/Simeth [Maalox] 30 ml PO TID-W/MEALS 08/24/22 [History] Polyvinyl Alcohol/Povidone [Clear Eyes Natural Tears Drop] 1 drop BOTH EYES TID@0700,1200,209908/24/22 [History] carvediloL [Coreg] 3.125 mg PO BID@0700,209908/24/22 [History] guaiFENesin-DM 100-10MG/5ML [Robitussin DM] 10 ml PO Q4H PRN 08/24/22 [History] Hydrocortisone [Anusol-Hc] 1 applic RECTAL Q6H PRN 09/08/22 [History] Baclofen 10 mg PO BID@0700,209907/01/23 [History] Benzocaine 20 % Gel [Orajel] 1 applic MM Q6H PRN 07/01/23 [History] Fenofibrate Nanocrystallized [Tricor] 145 mg PO HS 07/01/23 [History] Fluticasone Nasal Trevor [Flonase Nasal Trevor] 1 spray EA NOSTRIL DAILY@69907/01/23 [History] Ipratropium-Albuterol Nebulize [Duoneb 0.5 mg-3 mg/3 ml Soln] 3 ml INHALATION RT-QID 07/01/23 [History] L.acidoph,Paracasei, B.lactis [Probiotic] 1 cap PO BID 07/01/23 [History] Loperamide [Imodium] 2 mg PO DIRECTED PRN 07/01/23 [History] Methenamine Hippurate 1 gm PO BID@0700,2100 07/01/23 [History] Omeprazole 20 mg PO DAILY@0700 07/01/23 [History] Semaglutide [Ozempic] 0.5 mg SQ MO 07/01/23 [History] icosapent ethyL [Icosapent Ethyl] 4 gm PO HS 07/01/23 [History] ALPRAZolam [Xanax] 0.5 mg PO HS #3 tab 07/04/23 [Rx] Cefpodoxime Proxetil [Vantin] 200 mg PO Q12HR #4 tab 07/04/23 [Rx] Gabapentin 800 mg PO TID@0700,1200,2100 #12 tab 07/04/23 [Rx] HYDROcodone/APAP 7.5-325MG [Canyon 7.5-325] 1 tab PO Q6HR PRN 3 Days #12 tab 07/04/23 [Rx] INSULIN ASPART (NovoLOG) [NovoLOG (formulary)] 10 unit SQ TID-W/MEALS each 07/04/23 [Rx] Insulin Detemir (Levemir) [Levemir] 40 unit SQ HS each 07/04/23 [Rx] predniSONE [Deltasone] 60 mg PO DAILY #15 tab 07/04/23 [Rx] Follow up Appointment(s)/Referral(s): Josemanuel Ingram MD [STAFF PHYSICIAN] - 1 Week Arash Gutierrez DO [Primary Care Provider] - 1-2 days Activity/Diet/Wound Care/Special Instructions: Activity: fall precautions Diet: Diet: Pureed diet; honey thick liquids; 1:1 feeding; aspiration precautions; no straws Special Instructions: Needs ENT follow-up Repeat CBC and BMP in 3 days DX: hyponatremia, anemia Discharge Disposition: TRANSFER TO SNF/ECF
[2023-07-04] MEDS ORDERED: SERTRALINE 100 MG TAB PO SCH (14:00)
[2023-07-04 16:03] VITALS: PULSE 80
[2023-07-04 16:44] LABS: Glucose,Whole Blood 302 mg/dL (70-110)
[2023-07-07] MEDS ORDERED: PATIENT'S OWN (Semaglutide [Ozempic] 0.25 MG/0.368 ML Pen.Injctr) SQ SCH (09:00)
== END 2023-07-04 18:02 | DRG 698 ==
LOC: EC 14:51 → 3SCARD 17:51
PROVIDERS: ADMIT Internal Medicine; ATTEND Internal Medicine
PROC: F00ZHZZ Bedside Swallowing and Oral Function Assessment (ICD-10-PCS; principal; 2023-07-02)
DX: T83.511A Infection and inflammatory reaction due to indwelling urethral catheter, initial encounter (principal); A41.89 Other specified sepsis; G62.9 Polyneuropathy, unspecified; J15.69 Pneumonia due to other Gram-negative bacteria; J96.21 Acute and chronic respiratory failure with hypoxia; J69.0 Pneumonitis due to inhalation of food and vomit; G93.41 Metabolic encephalopathy; I16.0 Hypertensive urgency; J44.0 Chronic obstructive pulmonary disease with (acute) lower respiratory infection; M54.2 Cervicalgia; E03.9 Hypothyroidism, unspecified; Z79.899 Other long term (current) drug therapy; Z86.711 Personal history of pulmonary embolism; G47.33 Obstructive sleep apnea (adult) (pediatric); Y84.6 Urinary catheterization as the cause of abnormal reaction of the patient, or of later complication, without mention of misadventure at the time of the procedure; Z88.6 Allergy status to analgesic agent
CPT/HCPCS: 36415; 70450; 71045; 72125; 74230; 80048; 80053; 81001; 82803; 83036; 83605; 83880; 84145; 84484; 85025; 85027; 85610; 85730; 87040; 87070; 87077; 87086; 87186; 87205; 87449; 87636; 93005; 94640; 94760; 96365; 96366; 96367; 96375; 99291